=== PATIENT | female | born 2005 | race Caucasian/White ===

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

== ENCOUNTER 2024-10-10 15:12 | Outpatient (CLI) | payer MEDICAID, SELFPAY ==
[2024-10-10 15:21] VITALS: BMI 23.0
[2024-10-10 15:28] VITALS: BP 121/79; PULSE 103
[2024-10-10 15:29] VITALS: RESP 16; TEMP 36.4
[2024-10-10 16:23] LABS: Color, Urine Straw (Yellow); Glucose, Dipstick Normal (Normal); Ketone-Dipstick Negative (Negative); Leukocyte Esterase-Dipstick 500 /ul (Negative); Nitrite-Dipstick Negative (Negative); Occult Blood-Urine 25 /ul (Negative); Protein-Dipstick 100 mg/dl (Negative); Specific Gravity, Urine 1.010 (1.002-1.030); Urine Bilirubin Dipstick Negative (Negative)
--- NOTE | 2024-10-10 17:32 | OB.TRI.HP_ITS ---
HPI - General General Date of Admission: 10/10/24 Date of Service: 10/10/24 Chief Complaint: ctxs HPI Narrative JIMMY LEMA, is a 19 F who presents 2 para 1 with history of 41-week vaginal delivery with her last presents at 32 weeks gestation complaining of contractions. She works on her feet a lot and started having some contractions approximately 3 days ago that have continued they got a little worse today so she decided to come into labor and delivery and be evaluated. She denies any dysuria, nausea vomiting diarrhea or constipation, fevers or chills Maternal Data Information Final JEFFERY: 12/05/24 Gestational age: 32 0/7 PFSH [facility] Medical History (Updated 10/10/24 @ 17:[address] Gemma Reaves MD) Physical exam, pre-employment Anemia Seizures Allergy/AdvReac Type Severity Reaction Status Date / Time No Known Allergies Allergy Verified 10/10/24 15:30 Social History Smoking Status: Never smoker History Elective abortions Hx Para 0 Spontaneous abortions Hx # Term Pregnancies Ectopic pregnancies Hx # Pregnancies Multiple births # of living children NST FHR Rate Baby A Baseline: 130 Variability:: Moderate Accelerations:: 15 x 15 Decelerations:: None NST Reactive:: Yes Uterine Activity:: q2-4 min Assessment & Plan (1) 32 weeks gestation of : (2) : (3) Threatened labor, antepartum: PLAN: No evidence of active labor. Patient feels better after rest and p.o. hyd ration. Will send urine for culture. Encourage patient to return if contractions become more severe or rupture of membranes otherwise follow-up in the office as scheduled. She is comfortable with this plan.
[2024-10-10 20:51] LABS: Fetal Fibronectin Negative; Record Kit Lot#, fFN J4938
== END 2024-10-10 17:05 | disposition home or self-care (01) ==
LOC: WPOUT 15:19 → WP 15:19
PROVIDERS: Referring Provider Obstetrics & Gynecology; Visit Provider Obstetrics & Gynecology
DX: O47.03 False labor before 37 completed weeks of gestation, third trimester (principal); Z3A.32 32 weeks gestation of pregnancy
CPT/HCPCS: 59025; 59050; 81002; 82731; 87077; 87086; 87088; 87186; 99221; G0378

== ENCOUNTER 2024-10-14 00:48 | Outpatient (CLI) | payer MEDICAID, SELFPAY ==
--- OUTSIDE RECORDS SUMMARY | 2024-10-14 00:58 | XMS RPT_ITS | CCD ---
Author Organization [facility] Care Team Providers Care Fitness Director Name Role Phone Diana Velazquez PA-C Primary Care Provider Care Physician, No Primary Primary Care Unava ilable Care Physician, No Primary Referring Unava ilable Geovanna Traylor NP Attending Unavailable Care Physician, No Primary Primary Care Unava ilable Care Physician, No Primary Referring Unava ilable Carlyle Henry Attending Unavailable Care Physician, No Primary Primary Care Unava ilable Marium Stevenson Admitting Unavailable Marium Stevenson Attending Unavailable Diana Velazquez PA-C Primary Care Provider Unavailable Primary Care Provider UnavailGINA Malin Attending Unavailable VELAZQUEZ, DIANA Primary Care Unavailable YONIS, GINA Referring Unavailable VELAZQUEZ, DIANA Primary Care Unavailable GINA KULKARNI Referring Unavailable VELAZQUEZ, DIANA Primary Care Unavailable PAULINA CHADWICK Attending Unavailable CABRERATS, GINA Referring Unavailable VELAZQUEZ, DIANA Primary Care Unavailable CABRERATSGINA Attending Unavailable VELAZQUEZ, DIANA Primary Care Unavailable CRISTA VASQUEZ Attending Unavailable YONIS, GINA Attending Unavailable POOLSIOMARA Referring Unavailable VELAZQUEZ, DIANA Primary Care Unavailable VELAZQUEZ, DIANA Attending Unavailable VELAZQUEZ, DIANA Primary Care Unavailable VELAZQUEZ, DIANA Referring Unavailable VELAZQUEZ, DIANA Primary Care Unavailable Care Physician, No Primary Primary Care Provider Unavailable Jean Paul WHEATLEY, Dr. Menendez Attending Provider Dr. Gemma Reaves MD Referring Provider [phone] Medications Current Medications Medication Drug Class(es) Dates Sig (Normalized) Sig (Original) amoxicillin 500 mg oral capsule (1 source) Penicillin-class Antibacterial Start: 11-26-2022 End: 12-01-2022 take 1 capsule by mouth three times daily amoxicillin (AMOXIL) 500 mg capsule Take 1 capsule by mouth three times daily for 5 days. 15 capsule 0 11/26/2022 12/01/2022 Active Comment on above: Take 1 capsule by mo [facility] three times daily for 5 days. aspirin 81 mg delayed release oral tablet (11 sources) Platelet Aggregation Inhibitor, Nonsteroidal Anti-inflammatory Drug Start: 06-28-2024 take 1 tablet by mouth once daily Ethinyl Estradiol / norgestimate (5 sources) Progestin, Estrogen Start: 10-27-2021 End: 01-19-2022 take 1 tablet by mouth once daily norgestimate 0.25 mg-ethinyl estradiol 35 mcg (SPRINTEC) 0.25-35 mg-mcg per tablet Take 1 tablet by mouth once daily. 84 tablet 3 10/27/2021 01/19/2022 Active Start: 10-24-2021 End: 10-27-2021 take 1 tablet by mouth once daily norgestimate 0.25 mg-ethinyl estradiol 35 mcg (SPRINTEC) 0.25-35 mg-mcg per tablet Take 1 tablet by mouth once daily. 28 tablet 0 10/24/2021 10/27/2021 Discontinued Start: 10-24-2021 take 1 tablet by willie th once daily norgestimate 0.25 mg-ethinyl estradiol 35 mcg (SPRINTEC) 0.25-35 mg-mcg per tablet Take 1 tablet by mouth once daily. 28 tablet 0 10/24/2021 Active Start: 07-01-2021 End: 10-24-2021 take 1 tablet by mouth once daily norgestimate 0.25 mg-ethinyl estradiol 35 mcg (SPRINTEC) 0.25-35 mg-mcg per tablet Take 1 tablet by mouth once daily. 28 tablet 3 07/01/2021 10/24/2021 Discontinued Start: 07-01-2021 take 1 tablet by willie th once daily norgestimate 0.25 mg-ethinyl estradiol 35 mcg (SPRINTEC) 0.25-35 mg-mcg per tablet Take 1 tablet by mouth once daily. 28 tablet 3 07/01/2021 Active Comment on above: Take 1 tablet by willie th once daily. nitrofurantoin, macrocrystals 25 mg / nitrofurantoin, monohydrate 75 mg oral capsule (1 source) Nitrofuran Antibacterial Start: 03-16-19 End: 03-23-19 take 1 capsule by mouth twice daily nitrofurantoin monohydrate and macrocrystal (MACROBID) 100 mg capsule Take 1 capsule by mouth two times a day for 7 days. 14 capsule 03/16/2024 03/23/2024 Active PNV no.95/ferrous fum/folic ac ( ORAL) (20 sources) PNV no.95/ferrou s fum/folic ac ( ORAL) Take by mouth. Active PNV no.95/ferrou s fum/folic ac ( ORAL) Take by mouth. 0 Active Completed/Discontinued Medications Medication Drug Class(es) Dates Sig (Normalized) Sig (Original) acetaminophen 500 mg oral tablet (16 sources) Start: 06-18-2023 End: 07-12-2024 take 2 tablets by mouth every six hours as needed for pain PAIN RELIEF ES, ACETAMINOPHEN, 500 mg tablet TAKE 2 TABLETS BY MOUTH EVERY 6 HOURS NEEDED FOR PAIN OR FEVER 06/18/2023 07/12/2024 Discontinued Start: 06-18-2023 End: 10-10-2024 take 1-10 tablets by mouth every six hours as needed for pain Acetaminophen 500 mg Tablet Discontinued 1000 mg PO EVERY 6 HOURS NEEDED as needed for Pain 1-10 Or Fever 30 June 18, 2023 12:00am October 10, 2024 3:30pm Start: 06-18-2023 take 1000 mg by mout h every six hours as needed Acetaminophen Active 1000 MG PO EVERY 6 HOURS NEEDED June 18, 2023 12:00am Blood-Glucose Meter (1 source) Start: 04-13-2023 End: 04-13-2023 Blood-Glucose Meter Indications: Abnormal glucose in , antepartum Use as directed to check glucose levels up to seven times daily. 1 Each 0 04/13/2023 04/13/2023 Comment on above: Use as directed to c heck glucose levels up to seven times daily. Desogestrel / Ethinyl Estradiol (1 source) Progestin, Estrogen Start: 05-06-2021 End: 07-01-2021 take 1 tablet by mouth once daily, then take 0.15 tablet by mouth once Desogestrel-Ethinyl Estradiol (APRI) 0.15-0.03 mg per tablet Take 1 tablet by mouth once daily. 28 tablet 3 05/06/2021 07/01/2021 Discontinued (Side Effects) Comment on above: Take 1 tablet by willie th once daily. ferrous sulfate 325 mg oral tablet (20 sources) Start: 03-16-2023 End: 06-28-2024 take 1 tablet by mouth once daily ferrous sulfate 325 mg (65 mg iron) tablet Indications: Antepartum anemia (HCC) Take 1 tablet by mouth once daily. 30 tablet 4 03/16/2023 06/28/2024 Discontinued (Discontinued by Patient) Comment on above: Take 1 tablet by willie th once daily. ibuprofen 600 mg oral tablet (14 sources) Nonsteroidal Anti-inflammatory Drug Start: 06-18-2023 End: 10-10-2024 take 1 tablet by mouth every six hours as needed for pain Ibuprofen 600 mg Tablet Discontinued 600 mg PO EVERY 6 HOURS NEEDED as needed for Pain Score 1-10 30 0 June 18, 2023 12:00am October 10, 2024 3:30pm isopropyl alcohol 0.7 ml/ml medicated pad (12 sources) Start: 04-13-2023 End: 07-29-2023 alcohol swabs (ALCOHOL PREP PADS) Indications: Abnormal glucose in , antepartum Use as directed to check glucose levels up to seven times daily. 200 Each 8 04/13/2023 07/29/2023 Discontinued (Other) Comment on above: Use as directed to c heck glucose levels up to seven times daily. multivitamin-ferrous sulfate 18 mg iron tab (20 sources) Start: 05-02-2021 End: 07-29-2023 take 1 tablet by mouth once daily multivitamin-ferrou s sulfate 18 mg iron tab Take 1 tablet by mouth once daily. 90 tablet 0 05/02/2021 07/29/2023 Discontinued (Other) Start: 05-02-2021 take 1 tablet by willie th once daily multivitamin-ferrous sulfate 18 mg iron tab Take 1 tablet by mouth once daily. 90 tablet 0 05/02/2021 Active Comment on above: Take 1 tablet by willie th once daily. norethindrone 0.35 mg oral tablet (12 sources) Start: 07-29-2023 End: 06-28-2024 take 1 tablet by mouth once daily Norethindrone, Contraceptive, 0.35 mg tablet Take 1 tablet by mouth once daily. 84 tablet 3 07/29/2023 06/28/2024 Discontinued (Discontinued by Patient) Problems Active Problems Problem Classification Problem Date Documented Da te Episodic/Chronic Administrative/social admission (2 sources) Encounter for pre-employment examination; Translations: [Patient encounter status] Onset: 12-01-2023 12-01-2023 Episodic Contraceptive and procreative management (2 sources) Oral contraception; Translations: [Encounter for surveillance of contraceptive pills] Episodic Genitourinary symptoms and ill-defined conditions (20 sources) Bacteriuria; Translations: [Bacteriuria] Onset: 11-26-2022 Resolved: 06-28-2024 11-26-2022 Episodic Other complications of ; puerperium affecting management of mother (1 source) Other disorders of ; Translations: [Other disorders of ] Onset: 09-14-2023 Episodic Other complications of (2 sources) Anemia of ; Translations: [Anemia complicating , unspecified trimester] 06-16-2023 Chronic Other complications of (1 source) Anemia complicating , unspecified trimester; Translations: [Anemia of mother, unspecified as to episode of care or not applicable] 06-18-2023 Chronic Other complications of (20 sources) High risk ; Translations: [Supervision of high risk , unspecified, second trimester] Onset: 06-28-2024 01-21-2023 Episodic Other complications of (1 source) Supervision of other high risk pregnancies, unspecified trimester; Translations: [Supervision of other high-risk ] 06-18-2023 Episodic Other complications of (2 sources) Gestational age unknown 06-28-2024 Episodic Other complications of (1 source) care status; Translations: [Supervision of with insufficient care, third trimester] 10-05-2024 Episodic Other complications of (1 source) Supervision of high risk , unspecified, third trimester; Translations: [Supervision of high risk in third trimester (HCC)] Onset: 10-05-2024 Episodic Other complications of (1 source) Supervision of with insufficient care, third trimester; Translations: [Limited care in third trimester (HCC)] Onset: 10-05-2024 Episodic Other complications of (1 source) Supervision of high risk , unspecified, second trimester; Translations: [Encounter for supervision of high risk in second trimester, antepartum (HCC)] Onset: 07-12-2024 Episodic Other congenital anomalies (4 sources) Disorder of bone; 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, 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 Chronic Other congenital anomalies (1 source) Transitional vertebra; 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, not associated with scoliosis] 04-07-2024 Chronic Other congenital anomalies (1 source) Congenital malformation of musculoskeletal system, unspecified; 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] Onset: 04-05-2024 Chronic Other connective tissue disease (1 source) Soft tissue lesion; Translations: [Other specified soft tissue disorders] 04-14-2024 Episodic Other connective tissue disease (1 source) Pain in upper limb; Translations: [Pain in arm, unspecified] 06-18-2023 Episodic Other gastrointestinal disorders (1 source) Constipation; Translations: [Constipation, unspecified] 07-29-2023 Episodic Other gastrointestinal disorders (1 source) Diarrhea; Translations: [Diarrhea, unspecified] 09-17-2024 Episodic Other gastrointestinal disorders (1 source) Diarrhea, unspecified; Translations: [Diarrhea, unspecified type] Onset: 09-17-2024 Episodic Other nutritional; endocrine; and metabolic disorders (2 sources) History of clinical finding in subject; Translations: [Personal history of other endocrine, nutritional and metabolic disease] 06-16-2023 Episodic Comment on above: 1 hour GCT elevated and patient was unable to complete 3 hour GTT Other nutritional; endocrine; and metabolic disorders (1 source) Personal history of other endocrine, nutritional and metabolic disease; Translations: [Personal history of other endocrine, metabolic, and immunity disorders] 06-18-2023 Episodic Other and delivery including normal (20 sources) Teenage ; Translations: [Encounter for supervision of normal first , first trimester] Onset: 11-24-2022 11-24-2022 Episodic Other screening for suspected conditions (not mental disorders or infectious disease) (9 sources) ultrasound increased nuchal translucency; Translations: [Encounter for screening for nuchal translucency] Onset: 07-12-2024 12-08-2022 Episodic Residual codes; unclassified (1 source) Gestation period, 15 weeks; Translations: [15 weeks gestation of ] 12-22-2022 Episodic Residual codes; unclassified (4 sources) Gestation period, 19 weeks; Translations: [19 weeks gestation of ] 01-20-2023 Episodic Residual codes; unclassified (3 sources) Gestation period, 23 weeks; Translations: [23 weeks gestation of ] 02-16-2023 Episodic Residual codes; unclassified (1 source) Gestation period, 32 weeks; Translations: [32 weeks gestation of ] 04-20-2023 Episodic Residual codes; unclassified (1 source) Gestation period, 34 weeks; Translations: [34 weeks gestation of ] 05-04-2023 Episodic Residual codes; unclassified (1 source) Gestation period, 36 weeks; Translations: [36 weeks gestation of ] 05-18-2023 Episodic Residual codes; unclassified (1 source) Gestation period, 37 weeks; Translations: [37 weeks gestation of ] 05-25-2023 Episodic Residual codes; unclassified (1 source) Gestation period, 38 weeks; Translations: [38 weeks gestation of ] 06-01-2023 Episodic Residual codes; unclassified (1 source) Gestation period, 39 weeks; Translations: [39 weeks gestation of ] 06-08-2023 Episodic Residual codes; unclassified (2 sources) Gestation period, 40 weeks; Translations: [40 weeks gestation of ] 06-16-2023 Episodic Residual codes; unclassified (1 source) 40 weeks gestation of ; Translations: [ state, incidental] 06-18-2023 Episodic Residual codes; unclassified (1 source) Gestation period, 17 weeks; Translations: [17 weeks gestation of ] 06-28-2024 Episodic Residual codes; unclassified (2 sources) Gestation period, 31 weeks; Translations: [31 weeks gestation of ] 10-05-2024 Episodic Residual codes; unclassified (1 source) 31 weeks gestation of ; Translations: [31 weeks gestation of (HCC)] Onset: 10-05-2024 Episodic Residual codes; unclassified (1 source) 23 weeks gestation of ; Translations: [23 weeks gestation of (HCC)] Onset: 08-11-2024 Episodic Residual codes; unclassified (1 source) 19 weeks gestation of ; Translations: [19 weeks gestation of (HCC)] Onset: 07-12-2024 Episodic Spondylosis; intervertebral disc disorders; other back problems (1 source) Sacrococcygeal disorders, not elsewhere classified; Translations: [Disorders of sacrum] 07-29-2023 Episodic Unclassified (11 sources) [facility] Education - COMMON Onset: 06-28-2024 06-28-2024 Unclassified (11 sources) Education - [place] Onset: 06-28-2024 06-28-2024 Past or Other Problems Problem Classification Problem Date Documented Da te Episodic/Chronic Alcohol-related disorders (13 sources) Alcohol consumption during ; Translations: [Alcohol use complicating , first trimester] Onset: 06-28-2024 06-28-2024 Episodic Diabetes or abnormal glucose tolerance complicating ; childbirth; or the puerperium (20 sources) Impaired glucose tolerance in ; Translations: [Abnormal glucose complicating ] Onset: 04-06-2023 Resolved: 06-28-2024 04-12-2023 Episodic Other complications of (20 sources) Anemia in mother complicating , childbirth AND/OR puerperium; Translations: [Anemia complicating , third trimester] Onset: 03-16-2023 Resolved: 06-28-2024 04-06-2023 Chronic Other complications of (15 sources) Late entry into care; Translations: [Supervision of with insufficient care, unspecified trimester] Onset: 06-28-2024 06-28-2024 Episodic Other complications of (12 sources) Rubella non-immune; Translations: [Supervision of other high risk pregnancies, unspecified trimester] Onset: 07-03-2024 07-03-2024 Episodic Other complications of (1 source) Supervision of other high risk pregnancies, second trimester; Translations: [Short interval between pregnancies affecting in second trimester, antepartum (HCC)] Onset: 06-28-2024 Episodic Other complications of (1 source) Supervision of with insufficient care, unspecified trimester; Translations: [Late care ([facility])] Onset: 06-28-2024 Episodic Residual codes; unclassified (1 source) 17 weeks gestation of ; Translations: [17 weeks gestation of ([facility])] Onset: 06-28-2024 Episodic Results Test Name Value Interpretation Reference Range Facility Bilirubin Test strip Ql (U)O rdered By: Gemma Reaves on 10-10-2024 Bilirubin Ql (U) Negative Negative [facility] Ketones Test strip Ql (U)Ord ered By: Gemma Reaves on 10-10-2024 Ketones Ql (U) Negative Negative [facility] Nitrite Test strip Ql (U)Ord ered By: Gemma Reaves on 10-10-2024 Nitrite Ql (U) Negative Negative [facility] Protein Test strip Ql (U)Ord ered By: Gemma Reaves on 10-10-2024 Protein Ql (U) 100 mg/dl High Negative [facility] Urine clarityOrdered By: Ximena Reaves on 10-10-2024 Clarity (U) Cloudy Clear [facility] Urine color determinationOrd ered By: Gemma Reaves on 10-10-2024 Color (U) Straw Yellow [facility] Urine glucose detectionOrder ed By: Gemma Reaves on 10-10-2024 Glucose Ql (U) Normal mg/dl Normal [facility] Urine leukocyte esterase det ection by dipstickOrdered By: Gemma Reaves on 10-10-2024 Leukocyte esterase Test strip Ql (U) 500 /ul High Negative [facility] Urine pHOrdered By: Gemma Reaves on 10-10-2024 pH (U) 6.5 [pH] 5.0 - 8.0 [facility] Urine specific gravity measu rementOrdered By: Gemma Reaves on 10-10-2024 Specific gravity (U) [Rel density] 1.010 1.002-1.030 [facility] Urine urobilinogen measureme ntOrdered By: Gemma Reaves on 10-10-2024 Urobilinogen Ql (U) Normal mg/dl Normal [facility] CNPNon 10-06-2024 CNPN Telephone (OGFVWE) JIMMY LEMA ([id number]) 3 F Date Time Provider Department 10/06/24 NURSE TV TECHNICIAN [facility] During your visit today, we recorded the following information about you: Alf Trevino, RN 10/06/2024 12:23 PM Signed 3rd risk assessment form submitted 10/06/24 Alf Trevino RN Allergies As of Date: 10/06/2024 (No Known Allergies) Date Reviewed: 09/17/2024 Reviewed by: Cirsta Vasquez APRN.MARKETING DEVELOPMENT SPECIALIST - Fully Assessed Reason for Visit: PRAF [4193] Prescriptions as of 10/06/2024 - aspirin, enteric coated (ECOTRIN LOW STRENGTH) 81 mg EC tablet Take 1 tablet by mouth once daily. - PNV no.95/ferrous fum/folic ac ( ORAL) Take by mouth. Problem List As Of Date 10/06/2024 Noted Resolved GBS bacteriuria [R82.71] 11/26/2022 06/28/2024 Anemia complicating , third trimester *03/16/2023 06/28/2024 Abnormal glucose tolerance in (HCC) [*04/06/2023 06/28/2024 Short interval between pregnancies affecting pr*06/28/2024 Late care (HCC) [O09.30] 06/28/2024 Alcohol consumption during in first t*06/28/2024 Rubella non-immune status, antepartum (HCC) [O0*07/03/2024 Supervision of high risk in third tri*10/05/2024 Encounter Status:Closed by ALF TREVINO on 10/06/24 Normal [facility] URINE OB DIP B/Oon Glucose Ql (U) Negative Neg mg/dL [facility] Interpretation and review of laboratory results Normal [facility] Protein.monoclonal (U) [Mass/Vol] Negative Neg mg/dL [facility] CNOVon 09-17-2024 CNOV Office Visit (WOUCA) JIMMY LEMA ([id number]) 3 F Date Time Provider Department 09/17/24 8:30 AM CRISTA VASQUEZ During your visit today, we recorded the following information about you: Temperature Pulse Respiration Blood pressure 96.9 degrees 94/minute 18/minute 112/62 Weight 56.6 kg Crista Vasquez APRN.MARKETING DEVELOPMENT SPECIALIST 09/17/2024 8:54 AM Signed This note was created using [employer]. Subjective Jimmy Lema is a 19 year old female. HPI Patient presents today complaining of about 1 week of diarrhea. She is also 28 weeks . She states that she has had 4 episodes of diarrhea today but typically it is much less than that. She denies any recent exposures such as camping. Denies any abdominal pain other than some mild cramping with diarrhea. Denies any vaginal bleeding or discharge. Denies any recent fever. States she is still urinating greater than 4 times per day. Review of Systems As above Objective BP 112/62 Pulse 94 Temp 36.1 ?C (96.9 ?F) Resp 18 Wt 56.6 kg (124 lb 12.5 oz) LMP 02/29/2024 (Approximate) SpO2 98% BMI 22.10 kg/m? Physical Exam Vitals and nursing note reviewed. Constitutional: General: She is not in acute distress. Appearance: Normal appearance. She is not ill-appearing. HENT: Head: Normocephalic. Mouth/Throat: Mouth: Mucous membranes are moist. Eyes: Conjunctiva/sclera: Conjunctivae normal. Cardiovascular: Rate and Rhythm: Normal rate and regular rhythm. Pulmonary: Effort: Pulmonary effort is normal. Breath sounds: Normal breath sounds. Abdominal: Palpations: Abdomen is soft. Tenderness: There is no abdominal tenderness. Musculoskeletal: General: Normal range of motion. Cervical back: Normal range of motion. Skin: General: Skin is warm and dry. Neurological: General: No focal deficit present. Mental Status: She is alert. Psychiatric: Mood and Affect: Mood normal. Behavior: Behavior normal. Assessment and Plan ASSESSMENT/PLAN: 1. Diarrhea, unspecified type - ICD9: 787.91, ICD10: R19.7 Discussed with patient that symptoms are most likely viral in origin. She does deny any concerning exposures such as camping. We did discuss stool testing which she prefers to defer if symptoms have not improved. Strongly encouraged her to get plenty of fluids including high electrolyte fluids such as Gatorade. If symptoms have not improved within the week she will return for reevaluation. Crista Vasquez APRN.[place] Allergies As of Date: 09/17/2024 (No Known Allergies) Date Reviewed: 09/17/2024 Reviewed by: Crista Vasquez APRN.MARKETING DEVELOPMENT SPECIALIST - Fully Assessed Reason for Visit: Diarrhea [35] Cmt: x 1 week Primary Visit Diagnosis:Diarrhea, unspecified type [R19.7] Prescriptions as of 09/17/2024 - aspirin, enteric coated (ECOTRIN LOW STRENGTH) 81 mg EC tablet Take 1 tablet by mouth once daily. - PNV no.95/ferrous fum/folic ac ( ORAL) Take by mouth. Problem List As Of Date 09/17/2024 Noted Resolved GBS bacteriuria [R82.71] 11/26/2022 06/28/2024 Anemia complicating , third trimester *03/16/2023 06/28/2024 Abnormal glucose tolerance in (HCC) [*04/06/2023 06/28/2024 Short interval between pregnancies affecting pr*06/28/2024 Late care (HCC) [O09.30] 06/28/2024 Encounter for supervision of high risk pregnanc*06/28/2024 Alcohol consumption during in first t*06/28/2024 Rubella non-immune status, antepartum (HCC) [O0*07/03/2024 Encounter Status:Closed by CRISTA [facility] ([facility] JIMMY LEMA ([id number]) 3 F Date Time Provider Department 08/14/24 NURSE TV TECHNICIAN [facility] [place] [facility]GFVWE During your visit today, we recorded the following information about you: Alf Trevino, RN 08/14/2024 10:42 AM Signed 2nd risk assessment form submitted 08/14/24 Alf Trevino RN Allergies As of Date: 08/14/2024 (No Known Allergies) Date Reviewed: 08/11/2024 Reviewed by: Brandon Gilman MA - Fully Assessed Reason for Visit: PRAF [4193] Prescriptions as of 08/14/2024 - aspirin, enteric coated (ECOTRIN LOW STRENGTH) 81 mg EC tablet Take 1 tablet by mouth once daily. - PNV no.95/ferrous fum/folic ac ( ORAL) Take by mouth. Problem List As Of Date 08/14/2024 Noted Resolved GBS bacteriuria [R82.71] 11/26/2022 06/28/2024 Anemia complicating , third trimester *03/16/2023 06/28/2024 Abnormal glucose tolerance in (HCC) [*04/06/2023 06/28/2024 Short interval between pregnancies affecting pr*06/28/2024 Late care (HCC) [O09.30] 06/28/2024 Encounter for supervision of high risk pregnanc*06/28/2024 Alcohol consumption during in first t*06/28/2024 Rubella non-immune status, antepartum (HCC) [O0*07/03/2024 Encounter Status:Closed by ALF TREVINO on 08/14/24 Normal [facility] Examination level ultrasound on 07-12-2024 Indication Standard anatomic survey Late care Impression The patient is referred for a standard anatomic survey. - Single, live, intrauterine . - biometry is consistent with the established gestational age. - No malformations were visualized on a complete standard anatomic survey. - The amniotic fluid volume is normal amount. - The placenta is posterior, fundal. - The Transabdominal cervical length measures 42 mm with no evidence of funneling or other dynamic changes. - Not all structural malformations can be detected by ultrasound examination. Recommendations Additional follow-up as clinically indicated. Maternal Assessment Height 160 cm Height (ft) 5 ft Height (in) 3 in Maternal assessment other: 2 Para 1 REMOTE READ Method Transabdominal ultrasound examination. View: Adequate visualization Garza . Number of fetuses: 1 Dating GA by prior assessment 19 w + 1 d JEFFERY by prior assessment: 12/05/2024 Ultrasound examination on: 07/12/2024 GA by U/S based upon: AC, BPD, Femur, HC GA by U/S 19 w + 2 d JEFFERY by U/S: 12/04/2024 Assigned: based on stated JEFFERY, selected on 07/12/2024 Assigned GA 19 w + 1 d Assigned JEFFERY: 12/05/2024 General Evaluation Cardiac activity present. FHR 138 bpm. movements: present. Presentation: transverse head right Placenta: Placental site: posterior, fundal Umbilical cord: Cord vessels: 3 vessel cord Amniotic fluid: Amount of AF: normal amount. MVP 5.0 cm Growth Overview Exam date GA BPD (mm) HC (mm) AC (mm) FL (mm) HL (mm) EFW (g) 06/28/2024 17w 2d 35.4 31% 139.3 44% 126.4 79% 22.5 35% 07/12/2024 19w 1d 39.9 12% 162.2 43% 150.8 82% 30.7 77% 30.5 82% 312 80% Biometry Standard BPD 39.9 mm 18w 1d 12% Hadlock OFD 60.3 mm 19w 4d 89% Nicolaides HC 162.2 mm 19w 0d 43% Cristina Cerebellum tr 20.0 mm 19w 2d 50% Hill Nuchal fold 3.4 mm AC 150.8 mm 20w 2d 82% Hadlock Femur 30.7 mm 19w 5d 77% Cristina Humerus 30.5 mm 20w 0d 82% Cristina EFW 312 g 19w 5d 80% Hadlock EFW (lb) 0 lb EFW (oz) 11 oz EFW by: Hadlock (HC-AC-FL) Extended Configuration Specialist 6.7 mm CM 4.5 mm 40% Nicolaides Extremities / Bony Struc FL / HC 0.19 81% Hadlock Other Structures FHR 138 bpm Anatomy Cranium: normal Lateral ventricles: normal Choroid plexus: normal Midline falx: normal Cavum septi pellucidi: normal Cerebellum: normal Cisterna magna: normal Head / Neck Vermis: Normal but not required for a standard anatomy exam Neck: Normal but not required for a standard anatomy exam Nuchal fold: Normal but not required for a standard anatomy exam Lips: normal Profile: Normal but not required for a standard anatomy exam Nose: Normal but not required for a standard anatomy exam Face Maxilla: Normal but not required for a standard anatomy exam Mandible: Normal but not required for a standard anatomy exam Orbits: Normal but not required for a standard anatomy exam Lens: Normal but not required for a standard anatomy exam 4-chamber view: normal RVOT view: normal LVOT view: normal 3-vessel view: normal 3-kekisp-suqugao view: normal Heart / Thorax Situs: situs solitus (normal) Aortic arch view: Normal but not required for a standard anatomy exam SVC: Normal but not required for a standard anatomy exam IVC: Normal but not required for a standard anatomy exam Cardiac axis: normal Rt lung: Normal but not required for a standard anatomy exam Lt lung: Normal but not required for a standard anatomy exam Diaphragm: Normal but not required for a standard anatomy exam Cord insertion: normal Stomach: normal Kidneys: normal Bladder: normal Genitals: normal Abdomen Abdom. wall: normal Cervical spine: normal Thoracic spine: normal Lumbar spine: normal Sacral spine: normal Arms: normal Legs: normal Rt upper arm: normal Rt forearm: normal Rt hand: normal Rt fingers: normal Lt upper arm: normal Lt forearm: normal Lt hand: normal Lt fingers: normal Rt upper leg: normal Rt lower leg: normal Rt foot: normal Lt upper leg: normal Lt lower leg: normal Lt foot: normal sex: male Wants to know sex: yes Maternal Structures Uterus / Cervix Uterus: Visualized Cervix: Visualized Approach: Transabdominal Cervical length 42.0 mm Other: Patient declined transvaginal ultrasound for cervical length. Ovaries / Tubes / Adnexa Rt ovary: Visualized Lt ovary: Visualized Performed By: Darline Simmons RDMS, RVT Read By: Brielle Norman M.D. MATERNAL MEDICINE [facility] Radiology Study observation (narrative) Anna mooney [facility] Lo 06-29-2024 [facility] Telephone (OGFVWE) JIMMY LEMA ([id number]) 3 F Date Time Provider Department 06/29/24 NURSE TV TECHNICIAN [facility] During your visit today, we recorded the following information about you: Alf Trevino, RN 06/29/2024 9:13 AM Signed 1st risk assessment form submitted 06/29/24 Alf Trevino RN Allergies As of Date: 06/29/2024 (No Known Allergies) Date Reviewed: 06/26/2024 Reviewed by: Rosi Pascual MA - Fully Assessed Reason for Visit: PRAF [4193] Prescriptions as of 06/29/2024 - aspirin, enteric coated (ECOTRIN LOW STRENGTH) 81 mg EC tablet Take 1 tablet by mouth once daily. - PAIN RELIEF ES, ACETAMINOPHEN, 500 mg tablet TAKE 2 TABLETS BY MOUTH EVERY 6 HOURS NEEDED FOR PAIN OR FEVER - PNV no.95/ferrous fum/folic ac ( ORAL) Take by mouth. Problem List As Of Date 06/29/2024 Noted Resolved GBS bacteriuria [R82.71] 11/26/2022 06/28/2024 Anemia complicating , third trimester *03/16/2023 06/28/2024 Abnormal glucose tolerance in (HCC) [*04/06/2023 06/28/2024 Short interval between pregnancies affecting pr*06/28/2024 Late care (HCC) [O09.30] 06/28/2024 Encounter for supervision of high risk pregnanc*06/28/2024 Alcohol consumption during in first t*06/28/2024 Encounter Status:Closed by ALF TREVINO on 06/29/24 Normal [facility] BACTERIAL VAGINOSIS NAATon 0 06-28-2024 Interpretation and review of laboratory results Normal [facility] Lactobacillus crispatus+gasseri+stein ii + Gardnerella vaginalis + Atopobium vaginae rRNA BAMBI+probe Ql (Vag fld) Not detected Not detected [facility] Lactobacillus crispatus+gasseri+stein ii + Gardnerella vaginalis + Atopobium vaginae rRNA BAMBI+probe Ql (Vag fld) Not detected Normal Not detected [facility] Comment on above: Order Comment: Speci men Type: SWABOrdering Facility: [facility] Address: [address] [place] [address] Performed By: #### C VTV, BVAMP ####[facility] LABCLIA [id number] [place] [address] [place] Bacteria Ur Culton Bacteria identified Cx Nom (U) ORGANISM ID: 1 >=100,000 CFU/ml Normal urogenital twyla Normal [facility] Comment on above: Performed By: #### 6 30-4 ####[facility] LABCLIA [id number] [place] [address] [place] C. trachomatis+N. gonorrhoea e DNA BAMBI+probe Ql (Unsp spec)on 06-28-2024 C. trachomatis rRNA BAMBI+probe Ql (Unsp spec) Not detected Not detected [facility] Interpretation and review of laboratory results Normal [facility] N. gonorrhoeae rRNA BAMBI+probe Ql (Unsp spec) Not detected Not detected [facility] This FDA-approved assay has been modified to accept rectal swabs self-collected in a healthcare setting. For self-collected rectal swabs, the test was developed and its performance characteristics determined by the [facility]'s [facility] [place] (-PLMI). It has not been cleared or approved by the FDA. [facility] is regulated under CLIA as qualified to perform high-complexity testing. This test is used for clinical purposes. It should not be regarded as investigational or for research. [facility] C. trachomatis rRNA BAMBI+probe Ql (Unsp spec) Not detected Normal Not detected [facility] Comment on above: Order Comment: Speci men Type: SWABOrdering Facility: [facility] Address: [address] [place] [address] Performed By: #### 3 6902-5 ####[facility] LABCLIA [id number] [place] [address] [place] N. gonorrhoeae rRNA BAMBI+probe Ql (Unsp spec) Not detected Normal Not detected [facility] Comment on above: Order Comment: Speci men Type: SWABOrdering Facility: [facility] Address: [address] [place] [address] Performed By: #### 3 6902-5 ####[facility] LABCLIA [id number] [place] [address] [place] SCARLET/TRICHOMONAS NAATon 0 06-28-2024 C. glabrata RNA BAMBI+probe Ql (Vag fld) Not detected Not detected [facility] Scarlet sp DNA BAMBI+probe Ql (Vag fld) Not detected Not detected [facility] Comment on above: The Scarlet species group target includes C. albicans, C. tropicalis, C. parapsilosis, and C. dubliniensis. Interpretation and review of laboratory results Normal [facility] T. vaginalis DNA BAMBI+probe Ql (Unsp spec) Not detected Not detected [facility] C. glabrata RNA BAMBI+probe Ql (Vag fld) Not detected Normal Not detected [facility] Comment on above: Order Comment: Speci men Type: SWABOrdering Facility: [facility] Address: [address] [place] [address] Performed By: #### C VTV, BVAMP ####[facility] LABIA [id number] [address] [place] Scarlet sp DNA BAMBI+probe Ql (Vag fld) Not detected Normal Not detected [facility] Comment on above: Order Comment: Speci men Type: SWABOrdering Facility: [facility] Address: [address] [place] [address] Result Comment: The Scarlet species group target includes C. albicans, C. tropicalis, C. parapsilosis, and C. dubliniensis. Performed By: #### C VTV, BVAMP ####[facility] LABCLIA [id number] [address] [place] T. vaginalis DNA BAMBI+probe Ql (Unsp spec) Not detected Normal Not detected [facility] Comment on above: Order Comment: Speci men Type: SWABOrdering Facility: [facility] Address: [address] [place] [address] Performed By: #### C VTV, BVAMP ####[facility] LABCLIA [id number] [place] [address] [place] CBC W Auto Differential pane l (Bld)on 06-28-2024 Basophils (Bld) [#/Vol] 0.04 10*3/uL Normal <0.11 [facility] Comment on above: Order Comment: Speci men Type: BLOOD SPECIMENOrdering Facility: [facility] Address: [address] [place] [address] Performed By: #### 5 7021-8 ####[facility] [id number] [place] [address] [place] Basophils/100 WBC (Bld) 0.4 % Normal [facility] Comment on above: Order Comment: Speci men Type: BLOOD SPECIMENOrdering Facility: [facility] Address: [address] [place] [address] Performed By: #### 5 7021-8 ####[facility] [id number] [place] [address] [place] Differential cell count method Nom (Bld) Auto Normal [facility] Comment on above: Order Comment: Speci men Type: BLOOD SPECIMENOrdering Facility: [facility] Address: [address] [place] [address] Performed By: #### 5 7021-8 ####[facility] [id number] [place] [address] [place] Eosinophils (Bld) [#/Vol] 0.07 10*3/uL Normal <0.46 [facility] Comment on above: Order Comment: Speci men Type: BLOOD SPECIMENOrdering Facility: [facility] Address: [address] [place] [address] Performed By: #### 5 7021-8 ####[facility] BOBBYNCENOCH [id number] [place] [address] [place] Eosinophils/100 WBC (Bld) 0.7 % Normal [facility] Comment on above: Order Comment: Speci men Type: BLOOD SPECIMENOrdering Facility: [facility] Address: [address] [place] [address] Performed By: #### 5 7021-8 ####[facility]CLIAnabell [id number] [place] [address] [place] Erythrocyte distribution width (RBC) [Ratio] 13.3 % Normal 11.5-15.0 [facility] Comment on above: Order Comment: Speci men Type: BLOOD SPECIMENOrdering Facility: [facility] Address: [address] [place] [address] Performed By: #### 5 7021-8 ####[facility] [id number] [place] [address] [place] Hematocrit (Bld) [Volume fraction] 35.7 % Low 36.0-46.0 [facility] Comment on above: Order Comment: Speci men Type: BLOOD SPECIMENOrdering Facility: [facility] Address: [address] [place] [address] Performed By: #### 5 7021-8 ####[facility] [id number] [place] [address] [place] Hemoglobin (Bld) [Mass/Vol] 12.5 g/dL Normal 11.5-15.5 [facility] Comment on above: Order Comment: Speci men Type: BLOOD SPECIMENOrdering Facility: [facility] Address: [address] [place] [address] Performed By: #### 5 7021-8 ####[facility] MILLWNCLIA [id number] [place] [address] [place] Immature granulocytes (Bld) [#/Vol] 0.07 10*3/uL Normal <0.10 [facility] Comment on above: Order Comment: Speci men Type: BLOOD SPECIMENOrdering Facility: [facility] Address: [address] [place] [address] Performed By: #### 5 7021-8 ####[facility] [id number] [place] [address] [place] Immature granulocytes/100 WBC (Bld) 0.7 % Normal [facility] Comment on above: Order Comment: Speci men Type: BLOOD SPECIMENOrdering Facility: [facility] Address: [address] [place] [address] Performed By: #### 5 7021-8 ####[facility] HOS[facility]ITALLIA [id number] [place] [address] [place] Lymphocytes (Bld) [#/Vol] 2.24 10*3/uL Normal 1.00-4.00 [facility] Comment on above: Order Comment: Speci men Type: BLOOD SPECIMENOrdering Facility: [facility] Address: [address] [place] [address] Performed By: #### 5 7021-8 ####[facility]ITALWNCLIA [id number] [place] [address] [place] Lymphocytes/100 WBC (Bld) 22.0 % Normal [facility] Comment on above: Order Comment: Speci men Type: BLOOD SPECIMENOrdering Facility: [facility] Address: [address] [place] [address] Performed By: #### 5 7021-8 ####[facility] [id number] [place] [address] [place] MCH (RBC) [Entitic mass] 31.7 pg Normal 26.0-34.0 [facility] Comment on above: Order Comment: Speci men Type: BLOOD SPECIMENOrdering Facility: [facility] Address: [address] [place] [address] Performed By: #### 5 7021-8 ####[facility]LEFELECIA [id number] [place] [address] [place] MCHC (RBC) [Mass/Vol] 35.0 g/dL Normal 30.5-36.0 [facility] Comment on above: Order Comment: Speci men Type: BLOOD SPECIMENOrdering Facility: [facility] Address: [address] [place] [address] Performed By: #### 5 7021-8 ####[facility]LECLOVISAnabell [id number] [address] [place] MCV (RBC) [Entitic vol] 90.6 fL Normal 80.0-100.0 C [facility] Comment on above: Order Comment: Speci men Type: BLOOD SPECIMENOrdering Facility: [facility] Address: [address] [place] [address] Performed By: #### 5 7021-8 ####[facility]LE[facility]LECIA [id number] [place] [address] [place] Monocytes (Bld) [#/Vol] 0.58 10*3/uL Normal <0.87 [facility] Comment on above: Order Comment: Speci men Type: BLOOD SPECIMENOrdering Facility: [facility] Address: [address] [place] [address] Performed By: #### 5 7021-8 ####[facility]CL[facility] [id number] [address] [place] Monocytes/100 WBC (Bld) 5.7 % Normal C [facility] Comment on above: Order Comment: Speci men Type: BLOOD SPECIMENOrdering Facility: [facility] Address: [address] [place] [address] Performed By: #### 5 7021-8 ####[facility] SENGVERPLANCKCLOVISLIA [id number] [place] [address] [place] Neutrophils (Bld) [#/Vol] 7.16 10*3/uL Normal 1.45-7.50 [facility] Comment on above: Order Comment: Speci men Type: BLOOD SPECIMENOrdering Facility: [facility] Address: [address] [place] [address] Performed By: #### 5 7021-8 ####[facility] HOS[facility]ITALLIA [id number] [place] [address] [place] Neutrophils/100 WBC (Bld) 70.5 % Normal [facility] Comment on above: Order Comment: Speci men Type: BLOOD SPECIMENOrdering Facility: [facility] Address: [address] [place] [address] Performed By: #### 5 7021-8 ####[facility] [id number] [place] [address] [place] Nucleated RBC (Bld) [#/Vol] 10*3/uL Normal <0.01 [facility] Comment on above: Order Comment: Speci men Type: BLOOD SPECIMENOrdering Facility: [facility] Address: [address] [place] [address] Performed By: #### 5 7021-8 ####[facility] H[facility]ITALL[facility] [id number] [place] [address] [place] Nucleated RBC/100 WBC (Bld) [Ratio] 0.0 /100 WBC Normal [facility] Comment on above: Order Comment: Speci men Type: BLOOD SPECIMENOrdering Facility: [facility] Address: [address] [place] [address] Performed By: #### 5 7021-8 ####[facility] MILLJELENAWNCLIA [id number] [place] [address] [place] Platelet mean volume (Bld) [Entitic vol] 9.5 fL Normal 9.0-12.7 [facility] Comment on above: Order Comment: Speci men Type: BLOOD SPECIMENOrdering Facility: [facility] Address: [address] [place], [place] [address] Performed By: #### 5 7021-8 ####[facility]PITALCareyNCLIA [id number] [place] [address] [place] Platelets (Bld) [#/Vol] 229 10*3/uL Normal 150-400 [facility] Comment on above: Order Comment: Speci men Type: BLOOD SPECIMENOrdering Facility: [facility] Address: [address] [place], [place] [address] Performed By: #### 5 7021-8 ####[facility] [id number] [place] [address] [place] RBC (Bld) [#/Vol] 3.94 10*6/uL Normal 3.90-5.20 [facility] Comment on above: Order Comment: Speci men Type: BLOOD SPECIMENOrdering Facility: [facility] Address: [address] [place] [address] Performed By: #### 5 7021-8 ####[facility] AMILCARWNCLIA [id number] [place] [address] [place] WBC (Bld) [#/Vol] 10.16 10*3/uL Normal 3.70-11.00 [facility] Comment on above: Order Comment: Speci men Type: BLOOD SPECIMENOrdering Facility: [facility] Address: [address] [place] [address] Performed By: #### 5 7021-8 ####[facility] [id number] [place] [id number] [place] HBV surface Ag Ql (S)on 06-07 Interpretation and review of laboratory results Normal [facility] HBV surface Ag Ser Qlon 06-07 HBV surface Ag Ql (S) Negative Normal Negative [facility] Comment on above: Order Comment: Speci men Type: BLOOD SPECIMENOrdering Facility: [facility] Address: [address] [place] [address] Performed By: #### 7 3752-8, 87053-8, 5195-3 ####[facility] LABIA [id number] [place] [address] [place] HCV Ab Ql (S)on 06-28-2024 Interpretation and review of laboratory results Normal [facility] HCV Ab Ser Qlon 06-28-2024 HCV Ab Ql (S) Negative Normal Negative [facility] Comment on above: Order Comment: Speci men Type: BLOOD SPECIMENOrdering Facility: [facility] Address: [address] [place] [address] Result Comment: The result suggests no evidence of infection with Hepatitis C virus. Should recent infection be suspected, repeat testing may be considered 4-6 weeks after this draw. Performed By: #### 1 6128-1 ####[facility] LABIA [id number] [place] [address] [place] HEPATITIS B SURFACE ANTIGENo n 06-28-2024 HBV surface Ag Ql (S) Negative Negative [facility] HEPATITIS C ANTIBODY IA WITH CONFIRMATIONon 06-28-2024 HCV Ab Ql (S) Negative Negative [facility] Comment on above: The result suggests no evidence of infection with Hepatitis C virus. Should recent infection be suspected, repeat testing may be considered 4-6 weeks after this draw. HIV 1+2 Ab IA Qlon HIV 1 and 2 Ab IA.rapid Nom (S/P/Bld) [facility] Comment on above: Test not indicated. HIV 1+2 Ab+HIV1 p24 Ag IA Ql Non-Reactive Nonreactive [facility] HIV immunoassay testing algorithm interpretation (S/P/Bld) [Interp] [facility] Comment on above: No evidence of HIV-1 or HIV-2 infection. Should recent infection be suspected, repeat testing may be considered 2-3 weeks after this draw. [place] Rev. Code 3701.243(E): This information has been disclosed to you from confidential records protected from disclosure by state law. You shall make no further disclosure of this information without the specific, written, and informed release of the individual to whom it pertains or as otherwise permitted by state law. A general authorization for the release of medical or other information is not sufficient for the purpose of the release of HIV test results or diagnoses. [facility] HIV 1 and 2 Ab IA.rapid Nom (S/P/Bld) Normal [facility] Comment on above: Order Comment: Speci men Type: BLOOD SPECIMENOrdering Facility: [facility] Address: [address] [place] [address] Result Comment: Test not indicated. Performed By: #### 7 3752-8, 27288-4, 5195-3 ####[facility] [id number] [place] [address] [place] HIV 1+2 Ab+HIV1 p24 Ag IA Ql Non-Reactive Normal Nonreactive [facility] Comment on above: Order Comment: Speci men Type: BLOOD SPECIMENOrdering Facility: [facility] Address: [address] [place] [address] Performed By: #### 7 3752-8, 74227-8, 5195-3 ####[facility] [id number] [place] [address] [place] HIV immunoassay testing algorithm interpretation (S/P/Bld) [Interp] Normal [facility] Comment on above: Order Comment: Speci men Type: BLOOD SPECIMENOrdering Facility: [facility] Address: [address] [place] [address] Result Comment: No e vidence of HIV-1 or HIV-2 infection. Should recent infection be suspected, repeat testing may be considered 2-3 weeks after this draw. [place] Rev. Code 3701.243(E): This information has been disclosed to you from confidential records protected from disclosure by state law. ???You shall make no further disclosure of this information without the specific, written, and informed release of the individual to whom it pertains or as otherwise permitted by state law. A general authorization for the release of medical or other information is not sufficient for the purpose of the release of HIV test results or diagnoses. Performed By: #### 7 3752-8, 28345-7, 5195-3 ####[facility] LABIA [id number] [address] OF [facility] HbA1c (Bld)on 06-28-2024 Average glucose Estimated from glycated hemoglobin (Bld) [Mass/Vol] 100 mg/dL [facility] Comment on above: eAG: (Estimated aver age glucose) is a calculated value from HgbA1c and is account services representative of the average blood glucose level in the last 2-3 month period. HbA1c (Bld) [Mass fraction] 5.1 % 4.3 - 5.6 % [facility] Comment on above: [place] Diabetes As sociation guidelines indicate that patients with HgbA1c in the range 5.7-6.4% are at increased risk for development of diabetes, and intervention by lifestyle modification may be beneficial. HgbA1c greater or equal to 6.5% is considered diagnostic of diabetes. [facility] Average glucose Estimated from glycated hemoglobin (Bld) [Mass/Vol] 100 mg/dL Normal [facility] Comment on above: Order Comment: Speci men Type: BLOOD SPECIMENOrdering Facility: [facility] Address: [address] [place] [address] Result Comment: eAG: (Estimated average glucose) is a calculated value from HgbA1c and is account services representative of the average blood glucose level in the last 2-3 month period. Performed By: #### 5 5454-3 ####[facility] [id number] [address] HbA1c (Bld) [Mass fraction] 5.1 % Normal 4.3-5.6 [facility] Comment on above: Order Comment: Speci men Type: BLOOD SPECIMENOrdering Facility: [facility] Address: [address] [place] [address] Result Comment: Amer [place] Diabetes Association guidelines indicate that patients with HgbA1c in the range 5.7-6.4% are at increased risk for development of diabetes, and intervention by lifestyle modification may be beneficial. HgbA1c greater or equal to 6.5% is considered diagnostic of diabetes. Performed By: #### 5 5454-3 ####[facility] LABCLIA [id number] [address] [place] [id number] PLUSon 06-28-2024 Cell-free DNA./Cell-free DNA.total Dosage of chromosome-specific cfDNA (cfDNA) [Molar fraction] 23% Normal [facility] Comment on above: Order Comment: Speci men Type: BLOOD SPECIMENOrdering Facility: [facility] Address: [address] [place] [address] Performed By: #### M AT21 ####[facility] LABCLIA [id number] [place] [address] Chr 13+18+21+X+Y aneuploidy Dosage of chromosome-specific cfDNA Ql (cfDNA) Negative Normal [facility] Comment on above: Order Comment: Speci men Type: BLOOD SPECIMENOrdering Facility: [facility] Address: [address] [place] [address] Performed By: #### M AT21 ####[facility] LABCLIA [id number] [place] [address] Chr 21 trisomy Dosage of chromosome-specific cfDNA Ql (cfDNA) Negative Normal [facility] Comment on above: Order Comment: Speci men Type: BLOOD SPECIMENOrdering Facility: [facility] Address: [address] [place] [address] Performed By: #### M AT21 ####[facility] LABCLIA [id number] [place] [address] Chr X and Y aneuploidy risk Sequencing Ql (cfDNA) [Interp] Not detected Normal [facility] Comment on above: Order Comment: Speci men Type: BLOOD SPECIMENOrdering Facility: [facility] Address: [address] [place] [address] Result Comment: Not Detected Not Detected Performed By: #### M AT21 ####[facility] LABCLIA [id number] [place] [address] Citation Issa (Reference lab test) Comment Normal [facility] Comment on above: Order Comment: Speci men Type: BLOOD SPECIMENOrdering Facility: [facility] Address: [address] [place] [address] Result Comment: 1. P shu JIMENEZ, et al. Jennifer Med. 2012;14(3):296-305. 2. Liberty CURRY, et al. Prenat Diag. 2013;33(6):591-597. 3. Maurice C, et al. Clin Chem. 2015 Apr;61(4):608-616. 4. Gael JIMENEZ, et al. Jennifer Med. 2011;13(11):913-920. 5. ACOG/SMFM Practice Bulletin No. 226, Dec 2019. Performed By: #### M AT21 ####[facility] LABCLIA [id number] [place] [address] Gestational age Estimated from conception date Garza Normal [facility] Comment on above: Order Comment: Speci men Type: BLOOD SPECIMENOrdering Facility: [facility] Address: [address] [place] [address] Performed By: #### M AT21 ####[facility] LABCLIA [id number] [place] [address] GESTATIONALAGE AGE > OR = 9W Yes Normal [facility] Comment on above: Order Comment: Speci men Type: BLOOD SPECIMENOrdering Facility: [facility] Address: [address] [place] [address] Performed By: #### M AT21 ####[facility] LABCLIA [id number] [place] [address] Laboratory comment Issa (Report) Comment Normal [facility] Comment on above: Order Comment: Speci men Type: BLOOD SPECIMENOrdering Facility: [facility] Address: [address] [place] [address] Result Comment: The MaterniT(R) 21 PLUS laboratory-developed test (LDT) analyzes circulating cell-free DNA from a maternal blood sample. This test is used for screening purposes and not diagnostic. Clinical correlation is recommended. Validation data on twin pregnancies is limited and the ability of this test to detect aneuploidy in higher multiple gestations has not yet been validated. Performed By: #### M AT21 ####Ogin[facility] [id number] [place] [id number] intelligence director name Nom (Provider) Comment Normal [facility] Comment on above: Order Comment: Speci men Type: BLOOD SPECIMENOrdering Facility: [facility] Address: [address] [place] [address] Result Comment: This specimen showed an expected representation of chromosome 21, 18 and 13 material. Clinical correlation is suggested. Comment Cj Morocho MD, PhD, Director, [facility] Performed By: #### M AT21 ####[facility] LABCLIA [id number] [place] [address] LIMITATIONS OF THE TEST Comment Normal [facility] Comment on above: Order Comment: Speci men Type: BLOOD SPECIMENOrdering Facility: [facility] Address: [address] [place] [address] Result Comment: Hien tolliver the results of these tests are highly reliable, discordant results, including inaccurate sex prediction, may occur due to placental, maternal, or mosaicism or neoplasm; vanishing twin; prior maternal organ transplant; or other causes. These tests are screening tests and not diagnostic; they do not replace the accuracy and precision of diagnosis with CVS or amniocentesis. A patient with a positive test result should be referred for genetic counseling and offered invasive diagnosis for confirmation of test results.[5] The results of this testing, including the benefits and limitations, should be discussed with a qualified healthcare provider. management decisions, including termination of the , should not be based on the results of these tests alone. The healthcare provider is responsible for the use of this information in the management of their patient. Sex chromosomal aneuploidies are not reportable for known multiple gestations. A negative result does not ensure an unaffected nor does it exclude the possibility of other chromosomal abnormalities or defects which are not a part of these tests. An uninformative result may be reported, the causes of which may include, but are not limited to, insufficient sequencing coverage, noise or artifacts in the region, amplification or sequencing bias, or insufficient fraction. These tests are not intended to identify pregnancies at risk for neural tube defects or ventral wall defects. Testing for whole chromosome abnormalities (including sex chromosomes) and for subchromosomal abnormalities could lead to the potential discovery of both and maternal genomic abnormalities that could have major, minor, or no, clinical significance. Evaluating the significance of a positive or a non-reportable result may involve both invasive testing and additional studies on the mother. Such investigations may lead to a diagnosis of maternal chromosomal or subchromosomal abnormalities, which on occasion may be associated with benign or malignant maternal neoplasms. These tests may not accurately identify triploidy, balanced rearrangements, or the precise location of subchromosomal duplications or deletions; these may be detected by diagnosis with CVS or amniocentesis. The ability to report results may be impacted by maternal BMI, maternal weight, maternal systemic lupus erythematosus (SLE) and/or by certain pharmaceutical agents such as low molecular weight heparin (for example: Lovenox(R), Xaparin(R), Clexane(R) and Fragmin(R)). Performed By: #### M AT21 ####[facility] [id number] [place] [address] Monosomy X risk Dosage of chromosome-specific cfDNA Ql (Plasma cell-free+WBC DNA) [Interp] Not detected Normal [facility] Comment on above: Order Comment: Laura gill Type: BLOOD SPECIMENOrdering Facility: [facility] Address: [address] [place] [address] Performed By: #### M AT21 ####[facility] LABThinque SystemsIA [id number] [place] [address] NEGATIVE PREDICTIVE VALUE Note Normal [facility] Comment on above: Order Comment: Laura gill Type: BLOOD SPECIMENOrdering Facility: [facility] Address: [address] [place] [address] Result Comment: The Negative Predictive Value (NPV) for trisomy 21, 18, and 13 is greater than 99%. The NPV for SCA and ESS cannot be calculated as SCA and ESS are only reported when an abnormality is detected. Performed By: #### M AT21 ####[facility] LABIA [id number] [place] [address] PERFORMANCE CHARACTERISTICS Note Normal [facility] Comment on above: Order Comment: Speci men Type: BLOOD SPECIMENOrdering Facility: [facility] Address: [address] [place] [address] Result Comment: ! Sex ! Accuracy: 99.4% ! ! ! ! Region (associated syndrome) ! Est. Sens# ! Est. Spec ! ! ! ! Trisomy 21 (Down Syndrome) ! 99.1% ! 99.9% ! ! ! ! Trisomy 18 (Camara Syndrome) ! >99.9% ! 99.6% ! ! ! ! Trisomy 13 (Patau Syndrome) ! 91.7% ! 99.7% ! ! ! ! Sex Chromosome Aneuploidies## ! 96.2% ! 99.7% ! ! ! * As reported in [facility] database nstd37 [https://www.ncbi.nlm.nih.gov/dbvar/studies/nstd37/ ] # Estimated Sensitivity. Sensitivity estimated across the observed size distribution of each syndrome [per ISCA database nstd37] and across the range of fractions observed in routine clinical NIPT. Actual sensitivity can also be influenced by other factors such as the size of the event, total sequence counts, amplification bias, or sequence bias. ## Garza gestation only. Performed By: #### M AT21 ####OginIA [id number] [place] [address] POSITIVE PREDICTIVE VALUE N/A Normal [facility] Comment on above: Order Comment: Speccharlene gill Type: BLOOD SPECIMENOrdering Facility: [facility] Address: [address] [place] [id number] Performed By: #### M AT21 ####[facility] LABCLIA [id number] [place] [address] Reference Lab Test Method Comment Normal [facility] Comment on above: Order Comment: Laura gill Type: BLOOD SPECIMENOrdering Facility: [facility] Address: [address] [place] [id number] Result Comment: See Notes Circulating cell-free DNA was purified from the plasma component of maternal blood. The extracted DNA was then converted into a genomic DNA library for aneuploidy analysis of chromosomes 21, 18, and 13 via next generation sequencing.[1] Optional findings based on the test order include sex chromosome aneuploidy (SCA)[2], and enhanced sequencing series (ESS)[3], which will only be reported on as an additional finding when an abnormality is detected. SCA testing includes information on X and Y representation, while ESS testing includes deletions in selected regions (22q, 15q, 11q, 8q, 5p, 4p, 1p) and trisomy of chromosomes 16 and 22. Performed By: #### M AT21 ####[facility] LABCLIA [id number] [place] [address] Service comment (Unsp spec) [Interp] Comment Normal [facility] Comment on above: Order Comment: Speci men Type: BLOOD SPECIMENOrdering Facility: [facility] Address: [address] [place] [address] Result Comment: See Notes [employer] is a subsidiary of [employer], using the brand [employer]. This test was developed and its performance characteristics determined by [employer]. It has not been cleared or approved by the Food and Drug Administration. This laboratory is certified under the Clinical Laboratory Improvement Amendments (CLIA) as qualified to perform high complexity clinical laboratory testing and accredited by the [employer] [place] [employer] (CAP). If there is future clinical need for adding MaterniT GENOME testing, this specimen will be available until term. [facility] samples will not be retained beyond 60 days. [facility] patients will have to send a new sample for re-sequencing ([facility] Test Code: 408128). Performed By: #### M AT21 ####[facility] LABCLIA [id number] [place] [address] Sex Dosage of chromosome-specific cfDNA Nom (cfDNA) Comment Normal [facility] Comment on above: Order Comment: Speci men Type: BLOOD SPECIMENOrdering Facility: [facility] Address: [address] [place] [address] Result Comment: Cons istent with Male Performed By: #### M AT21 ####[facility] LABCLIA [id number] [place] [address] Test performance information Issa (Unsp spec) Comment Normal [facility] Comment on above: Order Comment: Speci men Type: BLOOD SPECIMENOrdering Facility: [facility] Address: [address] [place] [address] Result Comment: The performance characteristics of the MaterniT(R) 21 PLUS laboratory-developed test (LDT) have been determined in a clinical validation study with women at increased risk for chromosomal aneuploidy.[1-4] Performed By: #### M AT21 ####[facility] LABCLIA [id number] [place] [address] Trisomy 13 risk Dosage of chromosome-specific cfDNA Ql (cfDNA) [Interp] Negative Normal [facility] Comment on above: Order Comment: Speci men Type: BLOOD SPECIMENOrdering Facility: [facility] Address: [address] [place] [address] Performed By: #### M AT21 ####[facility] LABCLIA [id number] [place] [address] Trisomy 18 risk Dosage of chromosome-specific cfDNA Ql (Plasma cell-free+WBC DNA) [Interp] Negative Normal [facility] Comment on above: Order Comment: Speci men Type: BLOOD SPECIMENOrdering Facility: [facility] Address: [address] [place] [address] Performed By: #### M AT21 ####[facility] LABCLIA [id number] [place] [address] POC FIRE EQUIPMENT INSPECTOR ULTRASOUNDon 06-29-19 Indication Viability; confirm cardiac activity, Uncertain dates Impression Single intrauterine gestational sac, cardiac activity is visualized Recommendations Follow up for 1st Trimester Anatomy with Nuchal Translucency as clinically indicated if desired. Method Transabdominal ultrasound examination Garza . Number of fetuses: 1 Dating Ultrasound examination on: 06/28/2024 GA by U/S based upon: AC, BPD, Femur, HC GA by U/S 17 w + 2 d JEFFERY by U/S: 12/04/2024 Assigned: based on ultrasound (AC, BPD, Femur, HC), selected on 06/28/2024 Assigned GA 17 w + 2 d Assigned JEFFERY: 12/04/2024 Biometry Standard BPD 35.4 mm 16w 6d 31% Hadlock HC 139.3 mm 17w 1d 44% Cristina AC 126.4 mm 18w 2d 79% Hadlock Femur 22.5 mm 16w 5d 35% Cristina Extended OFD 51.1 mm 17w 2d 77% Nicolaides Assessment BPD 35.4 mm 16w 6d 31% Hadlock Cardiac activity: present General Evaluation Cardiac activity present Performed By: Gina Kulkarni CNM Read By: Gina Kulkarni CNM MATERNAL MEDICINE [facility] Radiology Study observation (narrative) [facility] RUBELLA IGG ANTIBODYon 06-28 Interpretation and review of laboratory results Abnormal [facility] Rubella IgG, Qual Negative Abnormal Positive [facility] Comment on above: The result suggests no history of Rubella vaccination or exposure to Rubella virus, however, some individuals with past history of Rubella vaccination may test negative using this test as immunity to Rubella virus wanes over time after vaccination. Please correlate with vaccination history if applicable. [facility] RUBELLA IGG AB, QUAL Negative Abnormal Positive [facility] Comment on above: Order Comment: Speci men Type: BLOOD SPECIMENOrdering Facility: [facility] Address: [address] [place] [address] Result Comment: The result suggests no history of Rubella vaccination or exposure to Rubella virus, however, some individuals with past history of Rubella vaccination may test negative using this test as immunity to Rubella virus wanes over time after vaccination. Please correlate with vaccination history if applicable. Performed By: #### R UBIGG ####[facility] LABCLIA [id number] [place] [address] [place] Reagin and Treponema pallidu m IgG and IgM [Interp]on 06-28-2024 T. pallidum IgG+IgM IA Ql (S) Non-Reactive Nonreactive [facility] T. pallidum IgG+IgM IA Ql (S) Non-Reactive Normal Nonreactive [facility] Comment on above: Order Comment: Speci men Type: BLOOD SPECIMENOrdering Facility: [facility] Address: [address] [place] [address] Performed By: #### 7 3752-8, 76673-5, 5195-3 ####[facility] LABCLIA [id number] [place] [address] [place] Reagin+T pallidum IgG+IgM Se rPl-Impon 06-28-2024 Reagin and Treponema pallidum IgG and IgM [Interp] Cannot exclude recent Treponemal infection if specimen collected within 7-10 days after appearance of suspect lesions or 2-3 weeks after an exposure. Clinical correlation is required. Normal [facility] Comment on above: Order Comment: Speci men Type: BLOOD SPECIMENOrdering Facility: [facility] Address: [address] [place] [address] Performed By: #### 7 3752-8, 21569-2, 5195-3 ####[facility] LABCLIA [id number] [place] [address] [place] SYPHILIS TREPONEMAL W/REFLEX on 06-28-2024 Reagin and Treponema pallidum IgG and IgM [Interp] Cannot exclude recent Treponemal infection if specimen collected within 7-10 days after appearance of suspect lesions or 2-3 weeks after an exposure. Clinical correlation is required. [facility] TYPE + SCREEN PRENATALon ABO group Nom (Bld) O [facility] Blood group antibody screen Ql Negative [facility] Rh Nom (Bld) Positive [facility] Type and Screen Expiration 07/01/2024 23:59 [facility] ABO O Normal [facility] Comment on above: Order Comment: Speci men Type: BLOOD SPECIMENOrdering Facility: [facility] Address: [address] [place] [address] Performed By: #### T SPN ####[facility] BLOOD BANKCLIA [id number] [place] [address] [place] Rh Nom (Bld) Positive Normal [facility] Comment on above: Order Comment: Speci men Type: BLOOD SPECIMENOrdering Facility: [facility] Address: [address] [place] [address] Performed By: #### T SPN ####[facility] BLOOD BANKCLIA [id number] [place] [id number] [facility] [place] TYPE AND SCREEN EXPIRATION 07/01/2024 23:59 Normal [facility] Comment on above: Order Comment: Speci men Type: BLOOD SPECIMENOrdering Facility: [facility] Address: [address] [place] [address] Performed By: #### T SPN ####[facility] BLO[facility] BANKCLIA [id number] [address] OF [place] CNPNon 04-07-2024 CNPN Telephone (PEDSWS) JIMMY LEMA ([id number]) 3 F Date Time Provider Department 04/07/24 DIANA VELAZQUEZ During your visit today, we recorded the following information about you: Diana Velazquez PA-C 04/07/2024 5:33 AM Signed Please let patient know x-ray did indicate what is called a transitional vertebrae at the lumbosacral junction; however, given that patient is not experiencing any pain/discomfort, I am uncertain whether this is a contributing factor to what is occurring or just an incidental finding. Consult placed for Ortho/Sports medicine for further evaluation. ROBERTA Ellis Tracy, LPN 04/07/2024 8:55 AM Signed Patient was notified of advice and/or results. Pt is unable to schedule at this time and will call back when able. Michelle Christiansen 04/08/2024 8:51 AM Signed Patient contact office to schedule sports ortho consult. Tonal Regulator's decision tree advises to schedule patient to neurology for the area of concern, PSS unable to override decision tree. Please notify patient and schedulers how to proceed with scheduling patient in the appropriate department. Marah Nguyen, RN 04/08/2024 8:55 AM Signed Was the attempt to schedule through peds ortho? 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 - PNV no.95/ferrous fum/folic ac ( ORAL) Take by mouth. - Norethindrone, Contraceptive, 0.35 mg tablet Take 1 tablet by mouth once daily. - ferrous sulfate 325 mg (65 mg iron) tablet Take 1 tablet by mouth once daily. Problem List As Of Date 04/07/2024 Noted Resolved GBS bacteriuria [R82.71] 11/26/2022 Anemia complicating , third trimester *03/16/2023 Abnormal glucose tolerance in [O99.81*04/06/2023 Encounter Status:Closed by ELSY EVANS on 04/07/24 Normal [facility] XR Sacrum and Coccyx 3 Views on 04-06-2024 IMPRESSION: Transitional vertebra at the lumbosacral junction. Medical Instrument Technician: PSCB Transcribe Date/Time: Apr 06 2024 10:14A Dictated by : JOANNE HERRING MD This examination was interpreted and the report reviewed and electronically signed by: JOANNE HERRING MD on Apr 06 2024 10:16AM [facility] DIVISION OF RADIOLOGY * * *Final Report* * * DATE OF EXAM: Apr 05 2024 3:58PM WOX [id number] - XR SACRUM/COCCYX 3V AP/LAT / PROCEDURE REASON: Bony abnormality * * * * Physician Interpretation * * * * EXAM TITLE: XR SACRUM/COCCYX 3V AP/LAT EXAM DATE/TIME: 04/05/2024 3:58 PM COMPARISON: None. CLINICAL INDICATION/HISTORY: Bony abnormality. TECHNIQUE: AP and lateral views of the sacrum/coccyx are presented. FINDINGS: No acute fractures demonstrated in the sacrum. No subluxation of the coccyx. The other pelvic bones are intact. There is a transitional vertebra at the lumbosacral junction. The disc spaces are well preserved. There is no significant osteophyte formation. DIVISION OF RADIOLOGY Provider, [facility] - 04/06/2024 * * *Final Report* * * DATE OF EXAM: Apr 05 2024 3:58PM WOX [id number] - XR SACRUM/COCCYX 3V AP/LAT / PROCEDURE REASON: Bony abnormality * * * * Physician Interpretation * * * * EXAM TITLE: XR SACRUM/COCCYX 3V AP/LAT EXAM DATE/TIME: 04/05/2024 3:58 PM COMPARISON: None. CLINICAL INDICATION/HISTORY: Bony abnormality. TECHNIQUE: AP and lateral views of the sacrum/coccyx are presented. FINDINGS: No acute fractures demonstrated in the sacrum. No subluxation of the coccyx. The other pelvic bones are intact. There is a transitional vertebra at the lumbosacral junction. The disc spaces are well preserved. There is no significant osteophyte formation. IMPRESSION IMPRESSION: Transitional vertebra at the lumbosacral junction. Medical Instrument Technician: HIRAM Transcribe Date/Time: Apr 06 2024 10:14A Dictated by : JOANNE HERRING MD This examination was interpreted and the report reviewed and electronically signed by: JOANNE HERRING MD on Apr 06 2024 10:16AM [facility] XR Sacrum and Coccyx 3 Views Ordered By: [facility] Provider on 04-06-2024 [facility] CNOVon 04-05-2024 CNOV Office Visit (PEDSWS) JIMMY LEMA ([id number]) 3 F Date Time Provider Department 04/05/24 3:00 PM DIANA VELAZQUEZ During your visit today, we recorded the following information about you: Temperature Pulse Respiration Weight 98.1 degrees 86/minute 18/minute 52.2 kg Last Period 11/22/23 Diana Velazquez PA-C 04/13/2024 6:39 AM Signed PEDIATRIC VISIT SERVICE DATE: 04/05/2024 SUBJECTIVE: Jimmy Lema is a 19 year who presents for evaluation of lump located on her lower back - midline. Patient reports that it is right at the end of her spine. States it has been there for as long as she can remember, but got larger after she got . Now is more protuberant. States it is hard and non-mobile. Denies pain/tenderness. Does not believe there to be any overlying redness. No discharge or crusting as far as patient is aware. Denies numbness/tingling. No changes in sensation. No urinary incontinence. History was obtained from: patient HISTORY: ACTIVE PROBLEM LIST Abnormal Glucose Tolerance in - 04/06/2023 Comment: 04/06/23-Failed 1hr GCT, attempted 3hr GTT could not finish due to difficulty with blood draw. Recommend repeat 3hr GTT and will get this done. Radha Manrique APRN.CNM April 20, 2023 Vomited two different times trying to do this. will not reorder. Gemma Reaves MD Anemia Complicating , Third Trimester - 03/16/2023 Comment: 04/06/23-Hgb 10.3 at 28 wk, repeat at 32wk. Iron supplement. Radha Manrique APRN.CNM Gbs Bacteriuria - 11/26/2022 Comment: 04/06/23-GBS prophylaxis during labor. Radha Manrique APRN.CNM PAST MEDICAL HISTORY Diagnosis Date NEGATIVE MEDICAL HISTORY PAST SURGICAL HISTORY Procedure Laterality Date NONE ALLERGIES No Known Allergies PAIN RELIEF ES, ACETAMINOPHEN, 500 mg tablet TAKE 2 TABLETS BY MOUTH EVERY 6 HOURS NEEDED FOR PAIN OR FEVER ibuprofen (MOTRIN) 600 mg tablet Take 600 mg by mouth every 6 hours as needed. PNV no.95/ferrous fum/folic ac ( ORAL) Take by mouth. (Patient not taking: Reported on 04/05/2024) Norethindrone, Contraceptive, 0.35 mg tablet Take 1 tablet by mouth once daily. (Patient not taking: Reported on 04/05/2024) ferrous sulfate 325 mg (65 mg iron) tablet Take 1 tablet by mouth once daily. (Patient not taking: Reported on 07/29/2023) OBJECTIVE: Pulse 86 Temp 36.7 ?C (98.1 ?F) (Temporal) Resp 18 Wt 52.2 kg (115 lb) LMP 11/22/2023 (Approximate) BMI 20.37 kg/m? General: alert and active in no apparent distress, cooperative, pleasant Eyes: conjunctiva clear Nose: clear Neck: supple, no adenopathy Lungs: clear to auscultation bilaterally, good air exchange, no retractions, breathing comfortably, no wheezes, rales, or rhonchi CVS: Normal rate, regular rhythm, no murmur Back: Firm protuberant mass/lump present mid lower back. No tenderness to palpation. No overlying erythema or other skin changes. Full ROM without any pain/discomfort elicited Skin: No rashes, lesions or skin changes Neuro: Sensation intact, normal gait ASSESSMENT/PLAN: Encounter Diagnosis ICD-10-CM 1. Bony abnormality Q79.9 XR SACRUM/COCCYX 3V AP/LAT - Discussed with patient uncertainty at this time with diagnosis - Will proceed with x-ray for further evaluation - All questions answered - Follow up to be determined by imaging results SIGNATURE: Diana Velazquez PA-C PATIENT NAME:Jimmy Lema DATE: 04/05/2024 TIME: 3:11 PM Allergies As of Date: 04/05/2024 (No Known Allergies) Date Reviewed: 04/05/2024 Reviewed by: Ciarra Segal MA - Fully Assessed Reason for Visit: Lump on lower back [Other] Cmt: Lump lower back since she can remember. When she got it got larger. Sticks out now. Not painful. Hard but doesn't move. Not sure if it has drainage or not. Primary Visit Diagnosis:Bony abnormality [Q79.9] Order(s):XR SACRUM/COCCYX 3V AP/LAT [[id number]] Order #: [id number] FUTURE Prescriptions as of 04/13/2024 - PAIN RELIEF ES, ACETAMINOPHEN, 500 mg tablet TAKE 2 TABLETS BY MOUTH EVERY 6 HOURS NEEDED FOR PAIN OR FEVER - ibuprofen (MOTRIN) 600 mg tablet Take 600 mg by mouth every 6 hours as needed. - PNV no.95/ferrous fum/folic ac ( ORAL) Take by mouth. - Norethindrone, Contraceptive, 0.35 mg tablet Take 1 tablet by mouth once daily. - ferrous sulfate 325 mg (65 mg iron) tablet Take 1 tablet by mouth once daily. Problem List As Of Date 04/05/2024 Noted Resolved GBS bacteriuria [R82.71] 11/26/2022 Anemia complicating , third trimester *03/16/2023 Abnormal glucose tolerance in [O99.81*04/06/2023 Encounter Status:Closed by DIANA VELAZQUEZ on 04/13/24 Normal [facility] XR SACRUM/COCCYX 3V AP/LATon 04-05-2024 XR SACRUM/COCCYX 3V AP/LAT * * *Final Report* * * DATE OF EXAM: Apr 05 2024 3:58PM WOX [id number] - XR SACRUM/COCCYX 3V AP/LAT / PROCEDURE REASON: Bony abnormality * * * * Physician Interpretation * * * * EXAM TITLE: XR SACRUM/COCCYX 3V AP/LAT EXAM DATE/TIME: 04/05/2024 3:58 PM COMPARISON: None. CLINICAL INDICATION/HISTORY: Bony abnormality. TECHNIQUE: AP and lateral views of the sacrum/coccyx are presented. FINDINGS: No acute fractures demonstrated in the sacrum. No subluxation of the coccyx. The other pelvic bones are intact. There is a transitional vertebra at the lumbosacral junction. The disc spaces are well preserved. There is no significant osteophyte formation. IMPRESSION: Transitional vertebra at the lumbosacral junction. Medical Instrument Technician: PSCB Transcribe Date/Time: Apr 06 2024 10:14A Dictated by : JOANNE HERRING MD This examination was interpreted and the report reviewed and electronically signed by: JOANNE HERRING MD on Apr 06 2024 10:16AM EST [id number] CN Normal [facility] XR Sacrum and Coccyx 3 Views on 04-05-2024 Radiology Study observation (narrative) [facility] Lo 03-16-2024 EMMETT Telephone (OBGYWM) PITAJIMMY ([id number]) 3 F Date Time Provider Department 03/16/24 SIOMARA LANZA OBGYWM During your visit today, we recorded the following information about you: Siomara Lanza APRN.CNP 03/16/2024 8:54 AM Signed Based on urinalysis it does appear the patient has a urinary tract infection Macrobid into drug [facility] in [place]. Please notify patient. Siomara Lanza APRN.Chi Lerma RN 03/16/2024 10:03 AM Signed Pt notified and voiced understanding. Chi Galdamez RN Allergies As of Date: 03/16/2024 (No Known Allergies) Date Reviewed: 07/29/2023 Reviewed by: Paulina Chadwick APRN.MARKETING DEVELOPMENT SPECIALIST - Fully Assessed Reason for Visit: Results [95] Order(s):nitrofurant oin monohydrate and macrocrystal (MACROBID) 100 mg capsuleTake 1 capsule by mouth two times a day for 7 days.Disp: 14 capsuleRfl: 0 Prescriptions as of 03/16/2024 - nitrofurantoin monohydrate and macrocrystal (MACROBID) 100 mg capsule Take 1 capsule by mouth two times a day for 7 days. - PAIN RELIEF ES, ACETAMINOPHEN, 500 mg tablet TAKE 2 TABLETS BY MOUTH EVERY 6 HOURS NEEDED FOR PAIN OR FEVER - ibuprofen (MOTRIN) 600 mg tablet Take 600 mg by mouth every 6 hours as needed. - PNV no.95/ferrous fum/folic ac ( ORAL) Take by mouth. - Norethindrone, Contraceptive, 0.35 mg tablet Take 1 tablet by mouth once daily. - ferrous sulfate 325 mg (65 mg iron) tablet Take 1 tablet by mouth once daily. Problem List As Of Date 03/16/2024 Noted Resolved GBS bacteriuria [R82.71] 11/26/2022 Anemia complicating , third trimester *03/16/2023 Abnormal glucose tolerance in [O99.81*04/06/2023 Prescriptions ordered this encounter Disp Refills Start End NITROFURANTOIN MONOHYDRATE AND MACROCR* 14 c* 0 03/16/2024 03/23/2024 Route: ORAL Sig: Take 1 capsule by mouth two times a day for 7 days. Encounter Status:Closed by CHI GALDAMEZ on 03/16/24 Normal [facility] Bacteria Ur Culton Bacteria identified Cx Nom (U) ORGANISM ID: 1 50,000-<100,000 CFU/ml Staphylococcus aureus ORGANISM ID: 1 (STAPHYLOCOCCUS AUREUS) ANTIBIOTIC INTERPRETATION [place] STATUS REFERENCE RANGE Oxacillin S <=0.25 F Susceptible <=2 , Resistant >2 Oxacillin-susceptibl e staphylococci are susceptible to other penicilllinase-stabl e penicillins, beta-lactam/beta-lac tamase inhibitor combinations, anti-staphylococcal cephems, and carbapenems. Trimeth sulfameth S <=10 F Susceptible <=40 , Resistant >40 Vancomycin S 1 F Susceptible <=2 , Intermediate >2 , Resistant >8 Rifampin S <=0.5 F Susceptible <=1 , Intermediate >1 , Resistant >2 Rifampin should not be used alone for antimicrobial therapy. Tetracycline S <=1 F Susceptible <=4 , Intermediate >4 , Resistant >8 Doxycycline S <=0.5 F Susceptible <=4 , Intermediate >4 , Resistant >8 Nitrofurantoin S 32 F Susceptible <=32 , Intermediate >32 , Resistant >64 Abnormal [facility] Comment on above: Performed By: #### 6 30-4 ####[facility] [id number] [place] [address] [place] Urinalysis complete panel (U )on 03-15-2024 BACTERIA UL >9821 High Negative [facility] Comment on above: Order Comment: Speci men Type: URINE SPECIMENOrdering Facility: [facility] Address: [address] [place] [address] Performed By: #### 2 4356-8 ####[facility] [id number] [place] [address] [place] Bilirubin Ql (U) Negative Normal Negative [facility] Comment on above: Order Comment: Speci men Type: URINE SPECIMENOrdering Facility: [facility] Address: [address] [place] [address] Performed By: #### 2 4356-8 ####[facility] [id number] [place] [address] [place] Clarity (Unsp spec) Cloudy Abnormal Clear [facility] Comment on above: Order Comment: Speci men Type: URINE SPECIMENOrdering Facility: [facility] Address: [address] [place] [address] Performed By: #### 2 4356-8 ####[facility] [id number] [place] [address] [place] Color (U) Yellow Normal Yellow [facility] Comment on above: Order Comment: Speci men Type: URINE SPECIMENOrdering Facility: [facility] Address: [address] [place] [address] Performed By: #### 2 4356-8 ####[facility] [id number] [place] [address] [place] Epithelial cells LM.HPF (Urine sed) [#/Area] Many Normal [facility] Comment on above: Order Comment: Speci men Type: URINE SPECIMENOrdering Facility: [facility] Address: [address] [place] [address] Result Comment: Few Performed By: #### 2 4356-8 ####[facility] [id number] [place] [address] [place] Glucose Test strip (U) [Mass/Vol] Negative Normal Negative [facility] Comment on above: Order Comment: Speci men Type: URINE SPECIMENOrdering Facility: [facility] Address: [address] [place] [address] Performed By: #### 2 4356-8 ####[facility] [id number] [place] [address] [place] Hemoglobin Ql (U) 2+ Abnormal Negative [facility] Comment on above: Order Comment: Speci men Type: URINE SPECIMENOrdering Facility: [facility] Address: [address] [place] [address] Performed By: #### 2 4356-8 ####[facility] [id number] [place] [address] [place] Hyaline casts (Urine sed) [#/Area] 1-3 /LPF Abnormal 0 /LPF [facility] Comment on above: Order Comment: Speci men Type: URINE SPECIMENOrdering Facility: [facility] Address: [address] [place] [address] Performed By: #### 2 4356-8 ####[facility] [id number] [place] [address] [place] Ketones Ql (U) Trace Abnormal Negative [facility] Comment on above: Order Comment: Speci men Type: URINE SPECIMENOrdering Facility: [facility] Address: [address] [place] [address] Performed By: #### 2 4356-8 ####[facility] [id number] [place] [address] [place] Leukocyte esterase Test strip Ql (U) 1+ Abnormal Negative [facility] Comment on above: Order Comment: Speci men Type: URINE SPECIMENOrdering Facility: [facility] Address: [address] [place] [address] Performed By: #### 2 4356-8 ####[facility] [id number] [place] [address] [place] Nitrite Ql (U) Negative Normal Negative [facility] Comment on above: Order Comment: Speci men Type: URINE SPECIMENOrdering Facility: [facility] Address: [address] [place] [address] Performed By: #### 2 4356-8 ####[facility] [id number] [place] [address] [place] pH (U) 5.5 [pH] Normal <8.5 [facility] Comment on above: Order Comment: Speci men Type: URINE SPECIMENOrdering Facility: [facility] Address: [address] [place] [address] Performed By: #### 2 4356-8 ####[facility] [id number] [place] [address] [place] Protein (U) [Mass/Vol] 2+ Abnormal Negative [facility] Comment on above: Order Comment: Speci men Type: URINE SPECIMENOrdering Facility: [facility] Address: [address] [place] [address] Performed By: #### 2 4356-8 ####[facility] [id number] [place] [address] [place] RBC LM.HPF (Urine sed) [#/Area] /[HPF] Abnormal 0-2 /HPF [facility] Comment on above: Order Comment: Speci men Type: URINE SPECIMENOrdering Facility: [facility] Address: [address] [place] [address] Performed By: #### 2 4356-8 ####[facility] [id number] [place] [address] [place] Specific gravity (U) [Rel density] 1.026 Normal 1.005-1.030 [facility] Comment on above: Order Comment: Speci men Type: URINE SPECIMENOrdering Facility: [facility] Address: [address] [place] [address] Performed By: #### 2 4356-8 ####[facility] LABIA [id number] [place] [address] [place] Urobilinogen Ql (U) 0.2 EU/dL Normal 0.2-1.0 EU/dL [facility] Comment on above: Order Comment: Speci men Type: URINE SPECIMENOrdering Facility: [facility] Address: [address] [place] [address] Performed By: #### 2 4356-8 ####[facility] [id number] [place] [address] [place] WBC LM.HPF (Urine sed) [#/Area] /[HPF] Abnormal 0-5 /HPF [facility] Comment on above: Order Comment: Speci men Type: URINE SPECIMENOrdering Facility: [facility] Address: [address] [place] [address] Performed By: #### 2 4356-8 ####[facility] [id number] [place] [address] [place] Urgent Care Visit Reporton 0 12-01-2023 Urgent Care Visit Report [facility] [address], [address] [place], [place] [id number] OFFICE VISIT Date of Service: 12/01/23 MR#: [id number] Acct: [id number] Name: JIMMY LEMA Rep #: [id number] : 2005 Provider: KATLYN Gibbs Age/Sex: 18/F Location: [facility] [place] Status: Signed Intake Vital Signs 07/05/23 11:31 Height 5 ft 3 in Intake Visit Reasons: PRE EMP/NON DOT/PHYSICAL/[place] Chief Complaint: feeding assessment Allergies No Known Allergies Allergy (Verified 06/16/23 19:28) [facility] Medical History (Updated 12/01/23 @ 08:33 by KATLYN Mckeon) Physical exam, pre-employment Anemia Seizures Social History Smoking Status: Never smoker HPI HPI Chief Complaint: feeding assessment Details: JIMMY LEMA, is a 18 F who presents to the office today for Office Procedures Physical Exam Coding PE Coding Pre-employment PE: Yes Coding Level of Care Code No Charge Diagnoses Physical exam, pre-employment Z02.1 Assessment and Plan Assessment and Plan (1) Physical exam, pre-employment: Status: Acute 12/01/23 0840 Date [employer] Cosigner Signature: Date (if applicable) CC: Normal [facility] MR/BMS.BBCon 07-05-2023 MR/BMS.BBC [facility] [address] [place] [address] OFFICE VISIT Date of Service: 06/23/23 MR#: [id number] Acct: [id number] Name: JMIMY LEMA Rep #: [id number] : 2005 Provider: Geovanna Traylor NP Age/Sex: 18/F [place] [facility] Status: Signed Intake Vital Signs 06/16/23 19:30 04/29/24 11:31 Height 5 ft 3 in 5 ft 3 in Intake Visit Reasons: Visit Chief Complaint: feeding assessment Accompanied by: Significant Other Allergies No Known Allergies Allergy (Verified 06/16/23 19:28) : Yes PFSH PFSH Medical History (Updated 06/26/23 @ 00:43 by Kayla Silver) Anemia Seizures Social History Smoking Status: Never smoker History Elective abortions Hx Para 0 Spontaneous abortions Hx # Term Pregnancies Ectopic pregnancies Hx # Pregnancies Multiple births # of living children HPI HPI HPI: JIMMY LEMA, is a 18 F who presents to the office today for feeding assessment, switching to pumping and feeding. History provided by the patient. ROS ROS Const Constitutional: Denies fever(s) or lethargy : Denies nipple discharge Skin Skin/Breast: Denies breast pain, breast skin changes or nipple discharge Details: switched to pumping and feeding, no longer wanting to put baby to breast, pumping q2-3 hours, 4-6 oz, has been taking motrin d/t engorgement, minimal nipple pain with pumping Exam Maternal Assessment Breast Assessment Bilateral Breasts: Firm Nipple Assessment Bilateral Nipples: Everted Areolar Tissue Areolar Tissue: Pliable Assessment Baby Feeding History Is your baby latching onto the breast: No Supplements Supplement Type:: Expressed milk Frequency: q2-3 hours Amount: 2-3.5 oz Breast Pumping Type of Breast Pump: Zomee Frequency: q2-3 hours Amount: 4-6 oz Reason for supplements or pumping:: Maternal choice to pump and feed Goals Breast Feeding Goals: To provide as much breastmilk as possible Exam Const General: comfortable and no acute distress Orientation: alert and oriented x3 Chest Breast inspection: normal inspection of the breasts Breast palpation: abnormal palpation of the breast (firm, no warmth ) Other: bilateral nipples slight reddened Resp Effort Inspection: normal respiratory effort Skin General: no rashes or lesions noted Psych Appearance: grossly normal Mental Status: mental status grossly normal Affect: normal affect Assessment and Plan Assessment and Plan (1) Engorgement of breast associated with childbirth, : Plan: Educated on pumping q 3 hours, ice, motrin, breast gymanstics. Monitor for signs of infection and call office right away. (2) Care and examination of lactating mother: Plan: Educated on pumping, milk storage, milk regulation. Follow up with PRN. Coding Level of Care Code Off vis,new,level 3 Diagnoses Engorgement of breast associated with childbirth, O92.79 Care and examination of lactating mother Z39.1 Clinical Quality Measures High Blood Pressure Screening/Follow Up High Blood Pressure follow-up Instructions: Recommended Blood Pressure Follow-Up Interventions: *Normal BP: No follow-up required for SBP < 120 mmHg and DBP < 80 mmHg: *Elevated BP: Patients with SBP of 120-129 mmHg and DBP < 80 mmHg: *Referral to Alternate/Primary Care Health Cryptologic Supervisor OR * Follow-up with rescreen in 2 to 6 months AND recommend nonpharmacologic interventions * First Hypertensive BP Reading: Patients with one elevated reading of SBP >=130 mmHg OR DBP >= 80 mmHg: *Referral to Alternate/Primary Care Health Professional OR *Follow-up with rescreen in >1 day and < 4 weeks AND recommend nonpharmacologic interventions *Second Hypertensive BP Reading: *Second Hypertensive BP Reading:Patients with second elevated reading of SBP of 130-139 mmHg or DBP of 80-89 mmHg (and not SBP >=140 or DBP >=90): * Referral to Alternate/Primary Care Health Cryptologic Supervisor OR *Nonpharmacological Intervention AND reassessment in 2-6 months AND an order for a laboratory test or ECG for hypertension *Second Hypertensive BP Reading: SBP >=140 or DBP >=90 *Referral to Alternate/Primary Care Healthcare Professional OR *Nonpharmacological Intervention AND BP lowering medication AND reassessment within 4 weeks AND an order for a laboratory test or ECG for hypertension BP Second Hypertensive Readings: For both questions related to the second hypertensive readings, orders for lab/ECG need to be placed in addition to responding to the non-pharmacological and follow up questions. 07/05/23 1149 Date ___ (more content not included)... Normal [facility] CBC W/Diff, Automatedon 06-06 Absolute Neut Normal 2.0-7.7 [facility] Comment on above: Order Comment: Comme nts: First day Result Comment: LACHO ENT DISCHARGED Performed By: #### L 100.0100 #### [facility] [address] [place], [address] HCT Normal 37-47 [facility] Comment on above: Order Comment: Comme nts: First day Result Comment: LACHO ENT DISCHARGED Performed By: #### L 100.0100 #### [facility] [address] [place], [address] HGB Normal 12.0-15.0 [facility] Comment on above: Order Comment: Comme nts: First day Result Comment: LACHO ENT DISCHARGED Performed By: #### L 100.0100 #### [facility] [address] [place], [address] MCH Normal 27.0-32.0 [facility] Comment on above: Order Comment: Comme nts: First day Result Comment: LACHO ENT DISCHARGED Performed By: #### L 100.0100 #### [facility] [address] [place], [address] MCHC Normal 32-36 [facility] Comment on above: Order Comment: Comme nts: First day Result Comment: LACHO ENT DISCHARGED Performed By: #### L 100.0100 #### [facility] [address] [place], [address] MCV Normal 81-99 [facility] Comment on above: Order Comment: Comme nts: First day Result Comment: LACHO ENT DISCHARGED Performed By: #### L 100.0100 #### [facility] [address] [place], [address] NEUT% Normal 47-70 [facility] Comment on above: Order Comment: Comme nts: First day Result Comment: LACHO ENT DISCHARGED Performed By: #### L 100.0100 #### [facility] [address] [place], [address] PLT Normal 150-450 [facility] Comment on above: Order Comment: Comme nts: First day Result Comment: LACHO ENT DISCHARGED Performed By: #### L 100.0100 #### [facility] [address] [place], [address] RBC Normal 4.2-5.4 [facility] Comment on above: Order Comment: Comme nts: First day Result Comment: LACHO ENT DISCHARGED Performed By: #### L 100.0100 #### [facility] [address] [place], [address] RDW CV Normal 11.6-14.6 [facility] Comment on above: Order Comment: Comme nts: First day Result Comment: LACHO ENT DISCHARGED Performed By: #### L 100.0100 #### [facility] [address] [place], [address] RDW SD Normal 35.1-43.9 [facility] Comment on above: Order Comment: Comme nts: First day Result Comment: LACHO ENT DISCHARGED Performed By: #### L 100.0100 #### [facility] [address] [place], [address] WBC Normal 4.4-11.0 [facility] Comment on above: Order Comment: Comme nts: First day Result Comment: LACHO ENT DISCHARGED Performed By: #### L 100.0100 #### [facility] [address] [place], [address] CBC W/Diff, Automatedon - Absolute Neut Normal 2.0-7.7 [facility] Comment on above: Order Comment: Comme nts: First day Result Comment: Canc elled via OM: Order edited - Discontinuing original order Performed By: #### L 100.0100 #### [facility] [address] [place], [address] HCT Normal 37-47 [facility] Comment on above: Order Comment: Comme nts: First day Result Comment: Canc elled via OM: Order edited - Discontinuing original order Performed By: #### L 100.0100 #### [facility] [address] [place], [address] HGB Normal 12.0-15.0 [facility] Comment on above: Order Comment: Comme nts: First day Result Comment: Canc elled via OM: Order edited - Discontinuing original order Performed By: #### L 100.0100 #### [facility] [address] [place], [address] MCH Normal 27.0-32.0 [facility] Comment on above: Order Comment: Comme nts: First day Result Comment: Canc elled via OM: Order edited - Discontinuing original order Performed By: #### L 100.0100 #### [facility] [address] [place], [address] MCHC Normal 32-36 [facility] Comment on above: Order Comment: Comme nts: First day Result Comment: Canc elled via OM: Order edited - Discontinuing original order Performed By: #### L 100.0100 #### [facility] [address] [place], [address] MCV Normal 81-99 [facility] Comment on above: Order Comment: Comme nts: First day Result Comment: Canc elled via OM: Order edited - Discontinuing original order Performed By: #### L 100.0100 #### [facility] [address] [place], [address] NEUT% Normal 47-70 [facility] Comment on above: Order Comment: Comme nts: First day Result Comment: Canc elled via OM: Order edited - Discontinuing original order Performed By: #### L 100.0100 #### [facility] [address] [place], [address] PLT Normal 150-450 [facility] Comment on above: Order Comment: Comme nts: First day Result Comment: Canc elled via OM: Order edited - Discontinuing original order Performed By: #### L 100.0100 #### [facility] [address] [place], [address] RBC Normal 4.2-5.4 [facility] Comment on above: Order Comment: Comme nts: First day Result Comment: Canc elled via OM: Order edited - Discontinuing original order Performed By: #### L 100.0100 #### [facility] [address] [place], [address] RDW CV Normal 11.6-14.6 [facility] Comment on above: Order Comment: Comme nts: First day Result Comment: Canc elled via OM: Order edited - Discontinuing original order Performed By: #### L 100.0100 #### [facility] [address] [place], [address] RDW SD Normal 35.1-43.9 [facility] Comment on above: Order Comment: Comme nts: First day Result Comment: Canc elled via OM: Order edited - Discontinuing original order Performed By: #### L 100.0100 #### [facility] [address] [place], [address] WBC Normal 4.4-11.0 [facility] Comment on above: Order Comment: Comme nts: First day Result Comment: Canc elled via OM: Order edited - Discontinuing original order Performed By: #### L 100.0100 #### [facility] [address] [place], [address] Operative Reporton 4 Operative Report [facility] Medical Records Department [address] [place] [address] Operative Report 06/17/23 1339 MR#: [id number] Acct: [id number] Name: JIMMY LEMA Rep #: [id number] : 2005 18 From: Marium Stevenson MD PCP: Care Physician,No Primary Status:ADM IN Location: [id number] Assessment Plan (1) (spontaneous vaginal delivery): (2) 40 weeks gestation of : Maternal Data Information JEFFERY Calculator Estimated Delivery Date Method Current WG Current Estimate 06/11/23 Manual 40w 6d Final JEFFERY: 06/11/23 Gestational age: 40+6 Vaginal Delivery Maternal Presentation Maternal Presentation: Elective Induction Type of Induction: Villalobos Bulb Operative Information Date of Procedure: 06/17/23 Pre-Operative Diagnosis: Term induction of labor Post-Operative Diagnosis: same Surgery / Procedure Performed: Spontaneous Vaginal Delivery Type of Anesthesia: Epidural Drain: Villalobos to straight drain Estimated Blood Loss: 150 cc Time of Delivery: 13:41 Findings Description of Procedure: After Villalobos bulb induction and Pitocin administration patient progressed to complete and pushed for 15 minutes over an intact perineum. HALLEY with loose nuchal cord. The anterior and posterior shoulder delivered easily. Delayed cord clamping was performed. Cord blood was collected. The placenta delivered with gentle traction. Bilateral labial lacerations repaired with 3-0 Vicryl Presentation: Vertex and HALLEY Amniotic Membrane Rupture Type: Artificial Amniotic Fluid Description: Clear Placental Delivery Description: Spontaneous Placenta Disposition: [facility] Cord Vessel Description: 3 Vessels Cord Entanglement: Around neck x 1, loose Nuchal Cord Compression: Without compression A Gender: Female (1 minute): 8 (5 minute): 9 Delayed Cord Clamping: Yes Post Vaginal Delivery Medications Given After Delivery: IV Pitocin Episiotomy Description: None Laceration: None (bilateral labial) Complication Complications: None 06/17/23 1346 Cosigner Signature (if applicable): CC: Dr. Marium Stevenson MD; No Primary Care Physician Signed Normal [facility] Absolute lymphocyte countOrd ered By: Gina Kulkarni on 06-16-2023 Lymphocytes Auto (Unsp spec) [#/Vol] 1.70 10*3/uL 0.83-4.51 [facility] Automated lymphocyte count a s percentage of total leukocytesOrdered By: Gina Kulkarni on 06-16-2023 Lymphocytes/100 WBC Auto (Unsp spec) 14.0 % 19-41 [facility] Basophil percentageOrdered B y: Gina Kulkarni on 06-16-2023 Basophils/100 WBC (Bld) 0.3 % 0-1 [facility] Eosinophils/100 WBC (Bld) 0.3 % 0-5 [facility] Hemoglobin (Bld) [Mass/Vol] 12.0 g/dL 12.0-15.0 [facility] Monocytes/100 WBC (Bld) 8.1 % 0-10 [facility] Neutrophils (Bld) [#/Vol] 9.2 10*3/uL 2.0-7.7 [facility] Neutrophils/100 WBC (Bld) 75.7 % 47-70 [facility] WBC (Bld) [#/Vol] 12.2 10*3/uL 4.4-11.0 [facility] CBC W/Diff, Automatedon 06-06 Absolute Lymph 1.70 X10 3/uL Normal 0.83-4.51 [facility] Comment on above: Performed By: #### L 100.0100, BTS #### [facility] [address] [place], [address] Absolute Neut 9.2 X10 3/uL High 2.0-7.7 [facility] Comment on above: Performed By: #### L 100.0100, BTS #### [facility] [address] [place], [address] Basophils/100 WBC (Bld) 0.3 % Normal 0-1 [facility] Comment on above: Performed By: #### L 100.0100, BTS #### [facility] [address] [place], [address] Eosinophils/100 WBC (Bld) 0.3 % Normal 0-5 [facility] Comment on above: Performed By: #### L 100.0100, BTS #### [facility] [address] [place], [address] Erythrocyte distribution width (RBC) [Ratio] 13.8 % Normal 11.6-14.6 [facility] Comment on above: Performed By: #### L 100.0100, BTS #### [facility] [address] [place], [address] Hematocrit (Bld) [Volume fraction] 35.5 % Low 37-47 [facility] Comment on above: Performed By: #### L 100.0100, BTS #### [facility] [address] [place], [address] Hemoglobin (Bld) [Mass/Vol] 12.0 g/dL Normal 12.0-15.0 [facility] Comment on above: Performed By: #### L 100.0100, BTS #### [facility] [address] [place], [address] IG% 1.600 High 0.0-0.9 [facility] Comment on above: Result Comment: IG% - Immature Granulocytes (promyelocytes, myelocytes and metamyelocytes) > 1% indicates that a LEFT SHIFT is Present. Performed By: #### L 100.0100, BTS #### [facility] [address] [place], [address] Lymphocytes/100 WBC (Bld) 14.0 % Low 19-41 [facility] Comment on above: Performed By: #### L 100.0100, BTS #### [facility] [address] [place], [address] MCH (RBC) [Entitic mass] 32.0 pg Normal 27.0-32.0 [facility] Comment on above: Performed By: #### L 100.0100, BTS #### [facility] [address] [place], [address] MCHC (RBC) [Mass/Vol] 33.8 g/dL Normal 32-36 [facility] Comment on above: Performed By: #### L 100.0100, BTS #### [facility] [address] [place], [address] MCV (RBC) [Entitic vol] 94.7 fL Normal 81-99 [facility] Comment on above: Performed By: #### L 100.0100, BTS #### [facility] [address] [place], [address] Monocytes/100 WBC (Bld) 8.1 % Normal 0-10 [facility] Comment on above: Performed By: #### L 100.0100, BTS #### [facility] [address] [place], [address] Neutrophils/100 WBC (Bld) 75.7 % High 47-70 [facility] Comment on above: Performed By: #### L 100.0100, BTS #### [facility] [address] [place], [address] Nucleated RBC (Bld) [#/Vol] 0 10*3/uL Normal 0-5 [facility] Comment on above: Performed By: #### L 100.0100, BTS #### [facility] [address] [place], [address] Platelet mean volume (Bld) [Entitic vol] 10.6 fL Normal 6.2-12.0 [facility] Comment on above: Performed By: #### L 100.0100, BTS #### [facility] [address] [place], [address] Platelets (Bld) [#/Vol] 214 10*3/uL Normal 150-450 [facility] Comment on above: Performed By: #### L 100.0100, BTS #### [facility] [address] [place], [address] RBC (Bld) [#/Vol] 3.75 10*6/uL Low 4.2-5.4 [facility] Comment on above: Performed By: #### L 100.0100, BTS #### [facility] [address] [place], [address] RDW SD 48.0 fl High 35.1-43.9 [facility] Comment on above: Performed By: #### L 100.0100, BTS #### [facility] [address] [place], [address] WBC (Bld) [#/Vol] 12.2 10*3/uL High 4.4-11.0 [facility] Comment on above: Performed By: #### L 100.0100, BTS #### [facility] [address] [facility] [place], [address] Determination of erythrocyte mean corpuscular volume (MCV)Ordered By: Gina Kulkarni on 06-16-2023 MCV (RBC) [Entitic vol] 94.7 fL 81-99 [facility] Erythrocyte distribution wid th ratioOrdered By: Gina Kulkarni on 06-16-2023 Erythrocyte distribution width (RBC) [Ratio] 13.8 % 11.6-14.6 [facility] Erythrocyte distribution wid th standard deviationOrdered By: Gina Kulkarni on 06-16-2023 Erythrocyte distribution width (RBC) [Entitic vol] 48.0 fL 35.1-43.9 [facility] H AND P Exam - OB/GYNon 04- H&P Exam - EXTERNAL GRINDER [facility] Medical Records Department [address] [place] [address] H P Exam - EXTERNAL GRINDER 06/16/232006 MR#: [id number] Acct: [id number] Name: JIMMY LEMA Rep #: [id number] : 2005 18 From: Gina Kulkarni CNM PCP: Care Physician,No Primary Status:ADM IN Location: [id number] HPI - General General Date of Admission: 06/16/23 HPI Narrative JIMMY LEMA, is a 18 F at 40.5 weeks gestation who presents for an elective induction of labor. Maternal Data Information JEFFERY Calculator Estimated Delivery Date Method Current WG Current Estimate 06/11/23 Manual 40w 5d PFSH PFS Medical History (Updated 06/16/23 @ 20:11 by Gina Kulkarni CNM) Anemia Seizures Allergy/AdvReac Type Severity Reaction Status Date / Time No Known Allergies Allergy Verified 06/16/23 19:28 Social History Smoking Status: Never smoker History Elective abortions Hx Para 0 Spontaneous abortions Hx # Term Pregnancies Ectopic pregnancies Hx # Pregnancies Multiple births # of living children ROS Eyes Eyes: Denies blurry vision, change in vision or spots in vision ENT HEENT: Denies dizziness or headache(s) Cardiovascular Cardiovascular: Denies abdominal pain, chest pain or dyspnea Respiratory/Chest Respiratory/Chest: Denies cough, dyspnea, shortness of breath at rest or shortness of breath with exertion Gastrointestinal Gastrointestinal: Denies abdominal pain, diarrhea or vomiting Genitourinary Genitourinary: Denies change in urinary stream, difficulty urinating or dysuria Musculoskeletal Musculoskeletal: Reports none Integumentary Integumentary: Denies rash Neurologic Neurologic: Denies dizziness, headache(s), memory loss or weakness Psychiatric Psychiatric: Reports none Vital Signs Vital Signs Vital Signs: 06/16/23 19:22 06/16/23 19:22 06/16/23 19:24 Temperature Temperature Source Temporal Pulse Rate 90 Respiratory Rate Blood Pressure 131/89 H BP Systolic 131 BP Diastolic 89 06/16/23 19:24 06/16/23 19:24 Temperature 98.6 F Temperature Source Pulse Rate Respiratory Rate 16 Blood Pressure BP Systolic BP Diastolic Weight Weight: 147 lb Body Mass Index (BMI) 26.0 Physical Exam Const alert, oriented x3 and no apparent distress General Appearance: cooperative Orientation / Consciousness: awake Exam Limitations: no limitations HEENT normocephalic Head and Scalp: normal to inspection Eyes General Eye: normal appearance of both eyes Neck full ROM and no lymphadenopathy Lymph Lymphatic: no lymphadenopathy noted Chest inspection of chest normal Resp normal respiratory effort, normal air movement and clear to auscultation bilaterally Effort and Inspection: able to speak in complete sentences and symmetric chest movement Cardio regular rate and regular rhythm GI normal to inspection, nondistended, normoactive bowel sounds Back/Spine normal ROM Extremity full ROM and no calf tenderness Skin no rashes or lesions noted General Skin Exam: no breakdown Neuro oriented x3 and CN's II-XII intact bilaterally Psych mental status grossly normal and thought process normal Labs Labs Labs: Blood Type Pending Antibody Screen NEGATIVE Hct 35.5 % (37-47) L Hgb 12.0 g/dL (12.0-15.0) Syphilis Total Ab Non-reactive GBS positive Assessment Plan (1) 40 weeks gestation of : (2) High risk teen : (3) Anemia affecting : (4) GBS bacteriuria: (5) Encounter for elective induction of labor: (6) History of elevated glucose: COMMENT: 1 hour GCT elevated and patient was unable to complete 3 hour GTT PLAN: Plan Admit to labor and delivery CE / Routine labs Start IV and run fluids per orders GBS positive- Start PCN 5 million units IV x 1 now and continue PCN 3 million units IV every 4 hours until delivery Cytotec 25 mcg PO every 4 hours x 6 doses total Villalobos bulb unable to be placed at this time due to acuity on unit Dr. Reaves notified of admission and is collaborating physician 06/16/23 0170 Cosigner Signature (if applicable): CC: ARELIS Kulkarni; No Primary Care Physician Signed Normal [facility] Hematocrit Auto (Bld) [Volum e fraction]Ordered By: Gina Kulkarni on 06-16-2023 Hematocrit (Bld) [Volume fraction] 35.5 % 37-47 [facility] Immature granulocytes/100 WB C Auto (Bld)Ordered By: Gina Kulkarni on 06-16-2023 Immature granulocytes/100 WBC (Bld) 1.600 % 0.0-0.9 [facility] Comment on above: IG% - Immature Granu locytes (promyelocytes, myelocytes and metamyelocytes) > 1% indicates that a LEFT SHIFT is Present. L509.8000on 06-16-2023 Syphilis Abs Non-Reactive Normal [facility] Comment on above: Performed By: #### L 509.8000 #### [facility] [place], [address] Laboratory - Hematology and Cell countsOrdered By: Gina Kulkarni on 06-16-2023 MCH (RBC) [Entitic mass] 32.0 pg 27.0-32.0 [facility] MCHC (RBC) [Mass/Vol] 33.8 g/dL 32-36 [facility] Nucleated RBC/100 WBC (Bld) [Ratio] 0 % 0-5 [facility] Platelet mean volume (Bld) [Entitic vol] 10.6 fL 6.2-12.0 [facility] Platelets (Bld) [#/Vol] 214 10*3/uL 150-450 [facility] RBC Auto (Bld) [#/Vol]Ordere d By: Gina Kulkarni on 06-16-2023 RBC (Bld) [#/Vol] 3.75 10*6/uL 4.2-5.4 [facility] Serum Treponema species anti body detectionOrdered By: Gina Kulkarni on 06-16-2023 Treponema sp Ab Ql (S) Non-Reactive [facility] Type AND Screenon 06-16-2023 Ab SCREEN GEL Negative Normal [facility] Comment on above: Order Comment: LABOR Performed By: #### B TS #### [facility] [address] [place], [address] ABO and Rh group Nom (Bld) Blood group O Rh(D) positive Normal [facility] Comment on above: Order Comment: LABOR Performed By: #### B TS #### [facility] [address] [place], [address] A1 CELL Not performed Normal [facility] Comment on above: Order Comment: Labor Result Comment: QNS NOTIFIED WP REDRAW IS NEEDED [facility] -10 Performed By: #### L 100.0100, BTS #### [facility] [address] [place], [address] Ab SCREEN GEL Not performed Normal [facility] Comment on above: Order Comment: Labor Result Comment: QNS NOTIFIED WP REDRAW IS NEEDED [facility] -10 Performed By: #### L 100.0100, BTS #### [facility] [address] [place], [address] ABO and Rh group Nom (Bld) Test Not Performed Normal [facility] Comment on above: Order Comment: Labor Result Comment: QNS NOTIFIED WP REDRAW IS NEEDED [facility] -10 Performed By: #### L 100.0100, BTS #### [facility] [address] [place], [address] ANTI A Not performed Normal [facility] Comment on above: Order Comment: Labor Result Comment: QNS NOTIFIED WP REDRAW IS NEEDED [facility] - Performed By: #### L 100.0100, BTS #### [facility] [address] [place], [address] ANTI B Not performed Normal [facility] Comment on above: Order Comment: Labor Result Comment: QNS NOTIFIED WP REDRAW IS NEEDED [facility] 06-15 Performed By: #### L 100.0100, BTS #### [facility] [address] [place], [address] ANTI D Not performed Normal [facility] Comment on above: Order Comment: Labor Result Comment: QNS NOTIFIED WP REDRAW IS NEEDED [facility] 06-15 Performed By: #### L 100.0100, BTS #### [facility] [address] [place], [address] B CELLS Not performed Normal [facility] Comment on above: Order Comment: Labor Result Comment: QNS NOTIFIED WP REDRAW IS NEEDED [facility] -10 Performed By: #### L 100.0100, BTS #### [facility] [address] [place], [address] BLD TYPE RECHEK Not performed Normal [facility] Comment on above: Order Comment: Labor Result Comment: QNS NOTIFIED WP REDRAW IS NEEDED [facility] -10 Performed By: #### L 100.0100, BTS #### [facility] [address] [place], [address] URINE OB DIP B/Oon 4 Glucose Ql (U) Negative Neg mg/dL [facility] Protein.monoclonal (U) [Mass/Vol] 100 mg/dL Neg mg/dL [facility] URINE OB DIP B/Oon 4 Glucose Ql (U) Negative Neg mg/dL [facility] Protein.monoclonal (U) [Mass/Vol] Negative Neg mg/dL [facility] URINE OB DIP B/Oon 4 Glucose Ql (U) Negative Neg mg/dL [facility] Protein.monoclonal (U) [Mass/Vol] trace Neg mg/dL [facility] URINE OB DIP B/Oon 4 Glucose Ql (U) Negative Neg mg/dL [facility] Protein.monoclonal (U) [Mass/Vol] Negative Neg mg/dL [facility] URINE OB DIP B/Oon 4 Glucose Ql (U) Negative Neg mg/dL [facility] Protein.monoclonal (U) [Mass/Vol] Negative Neg mg/dL [facility] URINE OB DIP B/Oon 4 Glucose Ql (U) Negative Neg mg/dL [facility] Protein.monoclonal (U) [Mass/Vol] Negative Neg mg/dL [facility] OBSTETRIC ULTRASOUND Ion 1 04-19-2022 [facility] URINE OB DIP B/Oon 3 Glucose Ql (U) Negative Neg mg/dL [facility] Protein.monoclonal (U) [Mass/Vol] Negative Neg mg/dL [facility] OBSTETRIC ULTRASOUND Ion 1 03-22-2022 [facility] URINE OB DIP B/Oon 3 Glucose Ql (U) Negative Neg mg/dL [facility] Protein.monoclonal (U) [Mass/Vol] Negative Neg mg/dL [facility] URINE OB DIP B/Oon 3 Glucose Ql (U) Negative Neg mg/dL [facility] Protein.monoclonal (U) [Mass/Vol] Negative Neg mg/dL [facility] Vital Signs Date Time Vital Sign Value Performing Clinician Facility 10-10-2024 15:29-0400 Body temperature 97.6 [degF] No Primary Care Physician [facility] 10-10-2024 15:29-0400 Respiratory rate 16 /min No Primary Care Physician [facility] 10-10-2024 15:28-0400 Diastolic blood pressure 79 mm[Hg] No Primary Care Physician [facility] 10-10-2024 15:28-0400 Heart rate 103 /min No Primary Care Physician [facility] 10-10-2024 15:28-0400 Systolic blood pressure 121 mm[Hg] No Primary Care Physician [facility] 10-10-2024 15:21-0400 Body height 160.02 cm No Primary Care Physician [facility] 10-10-2024 15:21-0400 Body mass index (BMI) [Ratio] 23 kg/m2 No Primary Care Physician [facility] 10-10-2024 15:21-0400 Body weight 59 kg No Primary Care Physician [facility] 10-05-2024 09:50-0400 Body mass index (BMI) [Ratio] 22.85 kg/m2 Gina Plotirina CERTIFIED HAND THERAPIST.CNM Work Phone: [facility] 10-05-2024 09:50-0400 Body weight 58.51 kg Gina Plotts CERTIFIED HAND THERAPIST.CNM Work Phone: [facility] 10-05-2024 09:50-0400 Diastolic blood pressure 60 mm[Hg] Gina Plotts CERTIFIED HAND THERAPIST.CNM Work Phone: [facility] 10-05-2024 09:50-0400 Systolic blood pressure 98 mm[Hg] Gina Plotts CERTIFIED HAND THERAPIST.CNM Work Phone: [facility] 09-17-2024 08:39-0400 Body mass index (BMI) [Ratio] 22.1 kg/m2 Crista Moomaw CERTIFIED HAND THERAPIST.MARKETING DEVELOPMENT SPECIALIST Work Phone: [facility] 09-17-2024 08:39-0400 Body temperature 96.91 [degF] Crista Moomaw CERTIFIED HAND THERAPIST.MARKETING DEVELOPMENT SPECIALIST Work Phone: [facility] 09-17-2024 08:39-0400 Body weight 56.6 kg Crista Moomaw CERTIFIED HAND THERAPIST.MARKETING DEVELOPMENT SPECIALIST Work Phone: [facility] 09-17-2024 08:39-0400 Diastolic blood pressure 62 mm[Hg] Crista Moomaw CERTIFIED HAND THERAPIST.MARKETING DEVELOPMENT SPECIALIST Work Phone: [facility] 09-17-2024 08:39-0400 Heart rate 94 /min Crista Moomaw CERTIFIED HAND THERAPIST.MARKETING DEVELOPMENT SPECIALIST Work Phone: [facility] 09-17-2024 08:39-0400 Respiratory rate 18 /min Crista Moomaw CERTIFIED HAND THERAPIST.MARKETING DEVELOPMENT SPECIALIST Work Phone: [facility] 09-17-2024 08:39-0400 SaO2% (BldA) [Mass fraction] 98 % Crista Moomaw CERTIFIED HAND THERAPIST.MARKETING DEVELOPMENT SPECIALIST Work Phone: [facility] 09-17-2024 08:39-0400 Systolic blood pressure 112 mm[Hg] Crista Moomaw CERTIFIED HAND THERAPIST.MARKETING DEVELOPMENT SPECIALIST Work Phone: [facility] 08-11-2024 13:44-0400 Body mass index (BMI) [Ratio] 22.32 kg/m2 Gina Plotts CERTIFIED HAND THERAPIST.CNM Work Phone: [facility] 08-11-2024 13:44-0400 Body weight 57.15 kg Gina Plotts CERTIFIED HAND THERAPIST.CNM Work Phone: [facility] 08-11-2024 13:44-0400 Diastolic blood pressure 64 mm[Hg] Gina Plotts CERTIFIED HAND THERAPIST.CNM Work Phone: [facility] 08-11-2024 13:44-0400 Systolic blood pressure 98 mm[Hg] Gina Plotts CERTIFIED HAND THERAPIST.CNM Work Phone: [facility] 07-12-2024 15:56-0400 Body mass index (BMI) [Ratio] 21.43 kg/m2 Paulina Hamacrina CERTIFIED HAND THERAPIST.MARKETING DEVELOPMENT SPECIALIST Work Phone: [facility] 07-12-2024 15:56-0400 Body weight 54.88 kg Paulina Hamacrina CERTIFIED HAND THERAPIST.MARKETING DEVELOPMENT SPECIALIST Work Phone: [facility] 07-12-2024 15:56-0400 Diastolic blood pressure 62 mm[Hg] Paulina Haury CERTIFIED HAND THERAPIST.MARKETING DEVELOPMENT SPECIALIST Work Phone: [facility] 07-12-2024 15:56-0400 Systolic blood pressure 100 mm[Hg] Paulina Chadwick CERTIFIED HAND THERAPIST.MARKETING DEVELOPMENT SPECIALIST Work Phone: [facility] 06-28-2024 08:36-0400 Body height 160 cm Gina Hinojosats CERTIFIED HAND THERAPIST.CNM Work Phone: [facility] 06-28-2024 08:36-0400 Body mass index (BMI) [Ratio] 21.19 kg/m2 Gina Plotts CERTIFIED HAND THERAPIST.CNM Work Phone: [facility] 06-28-2024 08:36-0400 Body weight 54.25 kg Gina Plotts CERTIFIED HAND THERAPIST.CNM Work Phone: [facility] 06-28-2024 08:36-0400 Diastolic blood pressure 68 mm[Hg] Gina Plotts CERTIFIED HAND THERAPIST.CNM Work Phone: [facility] 06-28-2024 08:36-0400 Systolic blood pressure 106 mm[Hg] Gina Plotts CERTIFIED HAND THERAPIST.CNM Work Phone: [facility] 04-05-2024 15:00-0500 Body mass index (BMI) [Ratio] 20.37 kg/m2 Diana Velazquez PA-C Work Phone: [facility] 04-05-2024 15:00-0500 Body temperature 98.1 [degF] Diana Velazquez PA-C Work Phone: [facility] 04-05-2024 15:00-0500 Body weight 52.16 kg Diana Velazquez PA-C Work Phone: [facility] 04-05-2024 15:00-0500 Heart rate 86 /min Diana Velazquez PA-C Work Phone: [facility] 04-05-2024 15:00-0500 Respiratory rate 18 /min Diana Velazquez PA-C Work Phone: [facility] 07-29-2023 08:45-0400 Body height 160 cm Paulina Chadwick CERTIFIED HAND THERAPIST.MARKETING DEVELOPMENT SPECIALIST Work Phone: [facility] 07-29-2023 08:45-0400 Body mass index (BMI) [Ratio] 21.97 kg/m2 Paulina Navarromacrina STARK.MARKETING DEVELOPMENT SPECIALIST Work Phone: [facility] [facility] 07-29-2023 08:45-0400 Body weight 56.25 kg Paulina Navarromacrina STARK.MARKETING DEVELOPMENT SPECIALIST Work Phone: [facility] 07-29-2023 08:45-0400 Diastolic blood pressure 64 mm[Hg] Paulina Navarromacrina STARK.MARKETING DEVELOPMENT SPECIALIST Work Phone: [facility] 07-29-2023 08:45-0400 Systolic blood pressure 102 mm[Hg] Paulina Navarromacrina STARK.MARKETING DEVELOPMENT SPECIALIST Work Phone: [facility] 06-18-2023 15:16-0400 Respiratory rate 16 /min [facility] 06-18-2023 11:54-0400 Body temperature 98.2 [degF] [facility] 06-18-2023 11:54-0400 Diastolic blood pressure 79 mm[Hg] [facility] 06-18-2023 11:54-0400 Heart rate 82 /min [facility] 06-18-2023 11:54-0400 SaO2% (BldA) [Mass fraction] 99 % [facility] 06-18-2023 11:54-0400 Systolic blood pressure 115 mm[Hg] [facility] 06-16-2023 19:30-0400 Body height 160.02 cm [facility] 06-16-2023 19:30-0400 Body mass index (BMI) [Percentile] Per age and sex 84.2 % [facility] 06-16-2023 19:30-0400 Body mass index (BMI) [Ratio] 26 kg/m2 [facility] 06-16-2023 19:30-0400 Body weight 66.67 kg [facility] 06-08-2023 11:16-0400 Body weight 65.77 kg Kari Mane MD Work Phone: [facility] 06-08-2023 11:16-0400 Diastolic blood pressure 68 mm[Hg] Kari Mane MD Work Phone: [facility] 06-08-2023 11:16-0400 Systolic blood pressure 112 mm[Hg] Kari Mane MD Work Phone: [facility] 06-01-2023 11:39-0400 Body weight 65.23 kg Kari Mane MD Work Phone: [facility] 06-01-2023 11:39-0400 Diastolic blood pressure 70 mm[Hg] Kari Mane MD Work Phone: [facility] 06-01-2023 11:39-0400 Systolic blood pressure 110 mm[Hg] Kari Mane MD Work Phone: [facility] 05-25-2023 13:31-0400 Body weight 64.95 kg Kari Mane MD Work Phone: [facility] 05-25-2023 13:31-0400 Diastolic blood pressure 68 mm[Hg] Kari Mane MD Work Phone: [facility] 05-25-2023 13:31-0400 Systolic blood pressure 98 mm[Hg] Kari Mane MD Work Phone: [facility] 05-18-2023 10:04-0400 Body weight 64.41 kg Gemma Reaves MD Work Phone: [facility] 05-18-2023 10:04-0400 Diastolic blood pressure 60 mm[Hg] Gemma Reaves MD Work Phone: [facility] 05-18-2023 10:04-0400 Systolic blood pressure 108 mm[Hg] Gemma Reaves MD Work Phone: [facility] 05-04-2023 09:49-0500 Body weight 63.32 kg Kari Mane MD Work Phone: [facility] 05-04-2023 09:49-0500 Diastolic blood pressure 74 mm[Hg] Kari Mane MD Work Phone: [facility] 05-04-2023 09:49-0500 Systolic blood pressure 120 mm[Hg] Kari Mane MD Work Phone: [facility] 04-20-2023 09:32-0500 Body weight 63.05 kg Gemma Reaves MD Work Phone: [facility] 04-20-2023 09:32-0500 Diastolic blood pressure 64 mm[Hg] Gemma Reaves MD Work Phone: [facility] 04-20-2023 09:32-0500 Systolic blood pressure 110 mm[Hg] Gemma Reaves MD Work Phone: [facility] 02-16-2023 14:40-0500 Body weight 58.06 kg Siomara Bancroft CERTIFIED HAND THERAPIST.MARKETING DEVELOPMENT SPECIALIST Work Phone: [facility] 02-16-2023 14:40-0500 Diastolic blood pressure 66 mm[Hg] Siomara Pool CERTIFIED HAND THERAPIST.MARKETING DEVELOPMENT SPECIALIST Work Phone: [facility] 02-16-2023 14:40-0500 Systolic blood pressure 98 mm[Hg] Siomara Bancroft CERTIFIED HAND THERAPIST.MARKETING DEVELOPMENT SPECIALIST Work Phone: [facility] 01-20-2023 14:41-0500 Body weight 55.79 kg Gemma Reaves MD Work Phone: [facility] 01-20-2023 14:41-0500 Diastolic blood pressure 72 mm[Hg] Gemma Reaves MD Work Phone: [facility] 01-20-2023 14:41-0500 Systolic blood pressure 106 mm[Hg] Gemma Reaves MD Work Phone: [facility] 12-22-2022 14:43-0400 Body weight 54.61 kg Kari Mane MD Work Phone: [facility] 12-22-2022 14:43-0400 Diastolic blood pressure 70 mm[Hg] Kari Mane MD Work Phone: [facility] 12-22-2022 14:43-0400 Systolic blood pressure 110 mm[Hg] Kari Mane MD Work Phone: [facility] 10-27-2021 08:51-0400 Body weight 52.8 kg Siomara Bancroft CERTIFIED HAND THERAPIST.MARKETING DEVELOPMENT SPECIALIST Work Phone: [facility] 10-27-2021 08:51-0400 Diastolic blood pressure 62 mm[Hg] Siomara Pool CERTIFIED HAND THERAPIST.MARKETING DEVELOPMENT SPECIALIST Work Phone: [facility] 10-27-2021 08:51-0400 Systolic blood pressure 82 mm[Hg] Siomara Bancroft CERTIFIED HAND THERAPIST.MARKETING DEVELOPMENT SPECIALIST Work Phone: [facility] 07-01-2021 12:51-0400 Body weight 51.53 kg Siomara Bancroft CERTIFIED HAND THERAPIST.MARKETING DEVELOPMENT SPECIALIST Work Phone: [facility] 07-01-2021 12:51-0400 Diastolic blood pressure 60 mm[Hg] Siomara Pool CERTIFIED HAND THERAPIST.MARKETING DEVELOPMENT SPECIALIST Work Phone: [facility] 07-01-2021 12:51-0400 Systolic blood pressure 100 mm[Hg] Siomara Pool CERTIFIED HAND THERAPIST.MARKETING DEVELOPMENT SPECIALIST Work Phone: [facility] Encounters Encounter Date Encounter Type Care Provider Facility Start: 10-10-2024 End: 10-10-2024 ambulatory No Primary Care Physician -[facility] Start: 10-10-2024 End: 10-10-[address] Gemma Reaves MD -[facility] Work Phone: Start: 10-06-2024 End: 10-06-2024 ambulatory Gina Kulkarni CERTIFIED HAND THERAPIST.CNM Work Phone: OB/Gynecology Comment on above: Breast pump Start: 10-06-2024 End: 10-06-2024 Telephone encounter Nurse Collection Clerk Joanne [place] Work Phone: Obstetrics/Gynecology Comment on above: PRAF Start: 10-05-2024 End: 10-05-2024 Patient encounter procedure Gina Kulkarni CERTIFIED HAND THERAPIST.CNM Work Phone: OB/Gynecology Comment on above: Supervision of high risk in third trimester (HCC) (Primary Dx); Late care (HCC); Screening for diabetes mellitus; Limited care in third trimester (HCC); 31 weeks gestation of (HCC) Start: 10-05-2024 End: 10-05-2024 ambulatory GINA KULKARNI Facility:[facility] Start: 09-17-2024 End: 09-17-2024 ambulatory CRISTA VASQUEZ Facility:[facility] Start: 09-17-2024 End: 09-17-2024 Patient encounter procedure Crista Vasquez CERTIFIED HAND THERAPIST.MARKETING DEVELOPMENT SPECIALIST Work Phone: [facility] [place] Comment on above: Diarrhea, unspecifie d type (Primary Dx) Start: 08-14-2024 End: 08-14-2024 Telephone encounter Nurse Collection Clerk Joanne [place] Work Phone: Obstetrics/Gynecology Comment on above: PRAF Start: 08-11-2024 End: 08-11-2024 Patient encounter procedure Gina Kulkarni CERTIFIED HAND THERAPIST.CNM Work Phone: OB/Gynecology Comment on above: Screening for diabet es mellitus (Primary Dx); 23 weeks gestation of (HCC); Late care (HCC); Encounter for supervision of high risk in second trimester, antepartum (HCC); Short interval between pregnancies affecting in second trimester, antepartum (HCC) Start: 08-11-2024 End: 08-11-2024 ambulatory [facility] Facility:[facility] Start: 08-09-2024 End: 08-10-2024 ambulatory Gina Kulkarni APRN.CNVignesh Work Phone: OB/Gynecology Comment on above: Reschedule appt Start: 07-12-2024 End: 07-12-2024 Patient encounter procedure Whi Tech 1 Collection Clerk [facility] Comment on above: Encounter for anatomic survey (HCC) (Primary Dx); 19 weeks gestation of (HCC) Encounter for superv ision of high risk in second trimester, antepartum (HCC) (Primary Dx); 19 weeks gestation of (HCC); Short interval between pregnancies affecting in second trimester, antepartum (HCC); Rubella non-immune status, antepartum (HCC) Start: 07-12-2024 End: 07-12-2024 ambulatory [facility] Facility:[facility] Start: 06-28-2024 End: 08-28-2024 Follow-up encounter Gina Kulkarni APRN.CNVignesh Work Phone: OB/Gynecology Start: 06-28-2024 End: 06-28-2024 Patient encounter procedure Gina Kulkarni CERTIFIED HAND THERAPISTBrandieCNM Work Phone: OB/Gynecology Comment on above: with fetus of unknown gestational age (HCC) (Primary Dx); 17 weeks gestation of (HCC); Short interval between pregnancies affecting in second trimester, antepartum (HCC); Late care (HCC); Encounter for supervision of high risk in second trimester, antepartum (HCC); Alcohol consumption during in first trimester (HCC) Start: 06-28-2024 End: 06-28-2024 ambulatory GINA KULKARNI Facility:[facility] Start: 04-14-2024 End: 04-14-2024 Patient encounter procedure Donald De La Torre PA-C Work Phone: Orthopaedics Start: 04-13-2024 End: 04-14-2024 ambulatory Diana Velazquez PA-C Work Phone: [facility] [place] Start: 04-13-2024 End: 04-14-2024 Follow-up encounter Diana Velazquez PA-C Work Phone: [facility] [place] Comment on above: Visit follow up Start: 04-07-2024 End: 04-07-2024 Telephone encounter Diana Velazquez PA-C Work Phone: [facility] [place] Comment on above: Results Start: 04-05-2024 End: 04-05-2024 Subsequent hospital visit by physician Timothy [facility] [place] Work Phone: Radiology Comment on above: Bony abnormality [Q7 9.9] Start: 04-05-2024 End: 04-05-2024 ambulatory DIANA VELAZQUEZ Facility:[facility] Start: 04-05-2024 End: 04-05-2024 Patient encounter procedure Diana Doughertyut PA-C Work Phone: [facility] [place] Comment on above: Bony abnormality (Pr imary Dx) Start: 03-16-2024 End: 03-16-2024 Telephone encounter Siomara Lanza APRN.MARKETING DEVELOPMENT SPECIALIST Work Phone: OB/Gynecology Comment on above: Results Start: 03-15-2024 End: 03-15-2024 ambulatory SIOMARA POOL Facility:[facility] Start: 03-13-2024 End: 03-14-2024 ambulatory Siomara Lanza CERTIFIED HAND THERAPIST.MARKETING DEVELOPMENT SPECIALIST Work Phone: OB/Gynecology Comment on above: Using the bathroom Start: 12-01-2023 End: 12-01-2023 ambulatory No Primary Care Physician Facility:[facility] Start: 09-29-2023 Telephone encounter Kari messina MD Work Phone: OB/Gynecology Comment on above: Breast Pump Start: 09-05-2023 ambulatory Kari Mooney Work Phone: OB/Gynecology Comment on above: medications to take for a cold when Start: 09-02-2023 Telephone encounter Kari messina MD Work Phone: OB/Gynecology Comment on above: Orders Start: 07-29-2023 End: 07-29-2023 Patient encounter procedure Paulina Chadwick CERTIFIED HAND THERAPIST.MARKETING DEVELOPMENT SPECIALIST Work Phone: OB/Gynecology Comment on above: care and examination (Primary Dx); Abnormal glucose affecting ; Constipation, unspecified constipation type; Sacral mass Start: 06-23-2023 End: 06-23-2023 ambulatory No Primary Care Physician Facility:[facility] Start: 06-17-2023 ambulatory Marium islas MD Work Phone: OB/Gynecology Comment on above: Ob Delivery Note Start: 06-16-2023 End: 06-18-2023 Evaluation and management of inpatient [facility] [place] Work Phone: Start: 06-08-2023 End: 06-08-2023 Patient encounter procedure Kari Mane MD Work Phone: OB/Gynecology Comment on above: Supervision of high risk in third trimester (Primary Dx); 39 weeks gestation of ; Abnormal glucose tolerance in ; Anemia complicating , third trimester Start: 06-01-2023 End: 06-01-2023 Patient encounter procedure Kari Mane MD Work Phone: OB/Gynecology Comment on above: 38 weeks gestation o f (Primary Dx); Supervision of high risk in third trimester Start: 05-31-2023 ambulatory Marah Burris [facility] [place] Comment on above: Population Health Na vigation Outreach (Ob/peds) Start: 05-25-2023 End: 05-25-2023 Patient encounter procedure Kari Mane MD Work Phone: OB/Gynecology Comment on above: Supervision of high risk in third trimester (Primary Dx); Abnormal glucose tolerance in ; 37 weeks gestation of Start: 05-18-2023 End: 05-18-2023 Patient encounter procedure Gemma Reaves MD Work Phone: OB/Gynecology Comment on above: 36 weeks gestation o f (Primary Dx); Supervision of high risk in third trimester Start: 05-04-2023 End: 05-04-2023 Patient encounter procedure Kari Mane MD Work Phone: OB/Gynecology Comment on above: 34 weeks gestation o f (Primary Dx); Abnormal glucose tolerance in ; Supervision of high risk in third trimester Start: 04-30-2023 ambulatory Kari Mooney Work Phone: OB/Gynecology Comment on above: Question Start: 04-20-2023 ambulatory Siomara Lanza CERTIFIED HAND THERAPIST.MARKETING DEVELOPMENT SPECIALIST Work Phone: OB/Gynecology Comment on above: Glucose Test Start: 04-20-2023 End: 04-20-2023 Patient encounter procedure Gemma Reaves MD Work Phone: OB/Gynecology Comment on above: Supervision of high risk in third trimester (Primary Dx); Abnormal glucose in , antepartum; 32 weeks gestation of Start: 04-10-2023 ambulatory Kari Mooney Work Phone: OB/Gynecology Comment on above: Glucose Test Start: 02-16-2023 End: 02-16-2023 Patient encounter procedure Siomara Bancroft CERTIFIED HAND THERAPIST.MARKETING DEVELOPMENT SPECIALIST Work Phone: OB/Gynecology Comment on above: Supervision of high risk in second trimester (Primary Dx); 23 weeks gestation of Encounter for follow -up ultrasound of anatomy (Primary Dx); 23 weeks gestation of Start: 01-26-2023 Telephone encounter Kari messina MD Work Phone: OB/Gynecology Comment on above: Lab Orders Start: 01-21-2023 Telephone encounter Kari messina MD Work Phone: OB/Gynecology Start: 01-20-2023 End: 01-20-2023 Patient encounter procedure Gemma Reaves MD Work Phone: OB/Gynecology Comment on above: 19 weeks gestation o f (Primary Dx); Encounter for supervision of normal first in second trimester Encounter for anatomic survey (Primary Dx); Encounter for care in first trimester of first ; 19 weeks gestation of Start: 12-22-2022 End: 12-22-2022 Patient encounter procedure Kari Mane MD Work Phone: OB/Gynecology Comment on above: 15 weeks gestation o f (Primary Dx); Encounter for care in first trimester of first Start: 12-08-2022 Telephone encounter Siomara Corriganc retirement CERTIFIED HAND THERAPIST.MARKETING DEVELOPMENT SPECIALIST Work Phone: OB/Gynecology Comment on above: Orders Start: 11-26-2022 Telephone encounter Siomara [facility] retirement CERTIFIED HAND THERAPIST.MARKETING DEVELOPMENT SPECIALIST Work Phone: OB/Gynecology Comment on above: Results Start: 10-27-2021 End: 10-27-2021 Patient encounter procedure Siomara Pool CERTIFIED HAND THERAPIST.MARKETING DEVELOPMENT SPECIALIST Work Phone: OB/Gynecology Comment on above: Encounter for survei llance of contraceptive pills (Primary Dx) Start: 10-24-2021 Refill Siomara Pool CERTIFIED HAND THERAPIST.MARKETING DEVELOPMENT SPECIALIST Work Phone: OB/Gynecology Comment on above: Refill Request Start: 07-01-2021 End: 07-01-2021 Patient encounter procedure Siomara Pool CERTIFIED HAND THERAPIST.MARKETING DEVELOPMENT SPECIALIST Work Phone: OB/Gynecology Comment on above: Encounter for survei llance of contraceptive pills (Primary Dx) Procedures Date Procedure Procedure Detail Performing Clinician Start: 10-10-2024 Urnls dip stick/tabl et reagent auto microscopy No Primary Care Physician Start: 10-05-2024 Urnls dip stick/tabl et rgnt non-auto w/o micrscp Gina Kulkarni CERTIFIED HAND THERAPIST.CNM Work Phone: Start: 07-12-2024 Us preg uterus after 1st trimest 03/08 gestation Gina Kulkarni CERTIFIED HAND THERAPIST.CNM Work Phone: Start: 06-28-2024 Antibody screen CURTIS KULKARNI Comment on above: Order Comment: Speci men Type: BLOOD SPECIMENOrdering Facility: [facility] Address: [address] [place] [address] Performed By: #### T SPN ####CC MAIN BLOOD BANKCLIA [id number] [place] [address] [place] Start: 06-28-2024 BACTERIAL VAGINOSIS NAAT Gina Kulkarni CERTIFIED HAND THERAPIST.CNM Work Phone: Start: 06-28-2024 Iadna chlamydia trac homatis amplified probe tq Gina Kulkarni CERTIFIED HAND THERAPIST.CNM Work Phone: Start: 06-28-2024 Us uterus l imited 1/> fetuses Gina Kulkarni CERTIFIED HAND THERAPIST.CNM Work Phone: Start: 06-08-2023 URINE OB DIP B/O Kari Mane MD Work Phone: Start: 06-01-2023 URINE OB DIP B/O Kari Mane MD Work Phone: Start: 05-25-2023 URINE OB DIP B/O Kari Mane MD Work Phone: Start: 05-18-2023 URINE OB DIP B/O Hao Reaves MD Work Phone: Start: 05-04-2023 URINE OB DIP B/O Kari Mane MD Work Phone: Start: 04-20-2023 URINE OB DIP B/O Hao Reaves MD Work Phone: Start: 02-16-2023 URINE OB DIP B/O Bita Manrique CERTIFIED HAND THERAPIST.CNM Work Phone: Start: 02-16-2023 Us preg uterus after 1st trimest 03/08 gestation Kari Mane MD Work Phone: Start: 01-20-2023 URINE OB DIP B/O Hao Reaves MD Work Phone: Start: 01-20-2023 Us preg uterus after 1st trimest 03/08 gestation Kari Mane MD Work Phone: Start: 12-22-2022 URINE OB DIP B/O Kari Mane MD Work Phone: Plan of Treatment Date Care Activity Detail Author Start: 11-06-2026 Urine microalbumin profile DTaP,Tdap,Td Vaccine (7 - Td or Tdap) [facility] Start: 06-28-2025 GC (Gonorrhea) Scree meng () GC (Gonorrhea) Screening () [facility] Start: 06-28-2025 Screening for Chlamy grace trachomatis Chlamydia Screening () [facility] Start: 11-06-2024 Influenza vaccination [facility] Start: 11-06-2024 RSV Vaccine (1 - Ris k 1-dose series) RSV Vaccine (1 - Risk 1-dose series) [facility] Start: 10-16-2024 End: 10-16-2024 Patient encounter procedure Maternal Medicine Comment on above: Growth OB Start: 10-10-2024 End: 10-10-2024 [facility] Start: 10-10-2024 Nonstress test [facility] Start: 10-10-2024 Obstetric monitoring [facility] Start: 10-10-2024 Vital signs measurements [facility] Start: 10-10-2024 Patient discharge [facility] Start: 10-10-2024 [facility] Start: 09-11-2024 End: 09-11-2024 Patient encounter procedure 09/11/2024 1:50 PM EDT Routine Office Visit OB/Gynecology [address] [place], [place] [id number] Marium Stevenson MD [address] [place] [address] Glucose/OB OB/Gynecology Comment on above: Glucose/OB Start: 09-11-2024 End: 09-11-2024 ambulatory 09/11/2024 1:30 PM EDT Results Only [place] [facility] [address] [place] [address] Glucose [place] [facility] Comment on above: Glucose Start: 08-11-2024 End: 11-10-2024 ANEMIA REFLEX PANEL ANEMIA REFLEX PANEL Lab Routine Screening for diabetes mellitus Encounter for supervision of high risk in second trimester, antepartum (HCC) Short interval between pregnancies affecting in second trimester, antepartum (HCC) Late care (HCC) Expected: 08/11/2024, Expires: 11/10/2024 [facility] Comment on above: Expected: 08/11/2024 , Expires: 11/10/2024 Start: 08-11-2024 End: 08-11-2025 GESTATIONAL GLUCOSE SCREEN, 1-HOUR, 50 GRAM, NON-FASTING GESTATIONAL GLUCOSE SCREEN, 1-HOUR, 50 GRAM, NON-FASTING Lab Routine Screening for diabetes mellitus Encounter for supervision of high risk in second trimester, antepartum (HCC) Short interval between pregnancies affecting in second trimester, antepartum (HCC) Late care (HCC) 23 weeks gestation of (HCC) Expected: 08/11/2024, Expires: 08/11/2025 [facility] Work Phone: Comment on above: Expected: 08/11/2024 , Expires: 08/11/2025 Start: 08-11-2024 End: 08-11-2024 Patient encounter procedure 08/11/2024 2:00 PM EDT Routine Office Visit OB/Gynecology [address] [place] [address] Gina Kulkarni APRN.[facility] [address] [place] [address] OB OB/Gynecology Comment on above: OB Start: 08-11-2024 End: 08-11-2025 SYPHILIS TREPONEMAL W/REFLEX SYPHILIS TREPONEMAL W/REFLEX Lab Routine Screening for diabetes mellitus Encounter for supervision of high risk in second trimester, antepartum (HCC) Short interval between pregnancies affecting in second trimester, antepartum (HCC) Late care (HCC) Expected: 08/11/2024, Expires: 08/11/2025 [facility] Comment on above: Expected: 08/11/2024 , Expires: 08/11/2025 Start: 08-10-2024 End: 08-10-2024 Patient encounter procedure 08/10/2024 10:30 AM EDT Routine Office Visit OB/Gynecology [address] [place] [address] Gina Kulkarni CERTIFIED HAND THERAPIST.CNM [address] [place] [address] Est New OB OB/Gynecology Comment on above: Est New OB Start: 07-28-2024 End: 07-28-2024 Patient encounter procedure 07/28/2024 8:15 AM EDT Office Visit OB/Gynecology [address] [place] [address] Paulina Chadwick CERTIFIED HAND THERAPIST.MARKETING DEVELOPMENT SPECIALIST [address] [place] [address] Annual OB/Gynecology Comment on above: Annual Start: 07-26-2024 End: 07-26-2024 Patient encounter procedure 07/26/2024 10:30 AM EDT Routine Office Visit OB/Gynecology [address] [place] [address] Radha Manrique CERTIFIED HAND THERAPIST.CNM [address] [place] [address] , OB/Gynecology Comment on above: , Start: 07-12-2024 End: 07-12-2024 Patient encounter procedure Maternal Medicine Comment on above: Anatomy ob Start: 06-28-2024 End: 09-27-2024 ANEMIA REFLEX PANEL [facility] Work Phone: Comment on above: Expected: 06/28/2024 , Expires: 09/27/2024 Start: 06-28-2024 End: 09-27-2024 Chromosome 21 trisomy [Presence] in Blood or Tissue by Cytogenetics [facility] Comment on above: Expected: 06/28/2024 , Expires: 09/27/2024 Start: 06-28-2024 End: 06-28-2025 OBSTETRIC ULTRASOUND WHI OBSTETRIC ULTRASOUND WHI Anc Imaging Routine with fetus of unknown gestational age (HCC) Expected: 06/28/2024, Expires: 06/28/2025 [facility] Comment on above: Expected: 06/28/2024 , Expires: 06/28/2025 Start: 03-15-2024 End: 03-15-2024 ambulatory 03/15/2024 12:00 PM EST Results Only [facility] [address] [place] [facility] [address] [facility] Start: 03-14-2024 End: 06-13-2024 Bacteria identified in Urine by Culture URINE CULTURE Microbiology Routine UTI symptoms Expected: 03/14/2024, Expires: 06/13/2024 [facility] Work Phone: Comment on above: Expected: 03/14/2024 , Expires: 06/13/2024 Start: 03-14-2024 End: 06-13-2024 Urinalysis complete panel - Urine URINALYSIS, WITH MICROSCOPIC Lab Routine UTI symptoms Expected: 03/14/2024, Expires: 06/13/2024 [facility] Comment on above: Expected: 03/14/2024 , Expires: 06/13/2024 Start: 11-25-2023 Chlamydia Screening (1824) Chlamydia Screening (18-24) [facility] Start: 11-25-2023 GC (Gonorrhea) Scree meng (18-24) GC (Gonorrhea) Screening (18-) [facility] Start: 11-25-2023 Screening for Chlamy grace trachomatis Chlamydia Screening () [facility] Start: 11-07-2023 Covid-19 Vaccine () Covid-19 Vaccine () [facility] Start: 11-07-2023 Influenza vaccination C [facility] Start: 09-27-2023 End: 12-27-2023 Hemoglobin A1c in Blood HEMOGLOBIN A1C Lab Routine Abnormal glucose affecting Expected: 09/27/2023, Expires: 12/27/2023 [facility] Work Phone: Comment on above: Expected: 09/27/2023 , Expires: 12/27/2023 Start: 06-18-2023 Patient discharge [facility] Start: 06-17-2023 Administration of medication [facility] Start: 06-17-2023 Application of ice collar, cap or bag [facility] Start: 06-17-2023 Catheterization of vein [facility] Start: 06-17-2023 Introduction of urin ivet catheter [facility] Start: 06-17-2023 Measuring intake and output [facility] Start: 06-17-2023 Notification of physician [facility] Start: 06-17-2023 Procedure discontinued [facility] Start: 06-17-2023 Provision of activit y privileges [facility] Start: 06-17-2023 Vital signs measurements [facility] Start: 06-17-2023 End: 06-17-2023 [facility] Start: 06-17-2023 Documentation procedure [facility] [facility] Start: 06-17-2023 Consultation [facility] Start: 06-16-2023 Admission procedure [facility] Start: 06-16-2023 Verification routine [facility] Start: 03-08-2023 Behavioral Health Screening Behavioral Health Screening [facility] Start: 03-08-2023 Depression Assessment Depression Ass essment [facility] Start: 02-16-2023 End: 05-18-2023 CBC W Auto Differential panel - Blood CBC + DIFF Lab Routine Supervision of high risk in second trimester 23 weeks gestation of Expected: 02/16/2023, Expires: 05/18/2023 [facility] Work Phone: Comment on above: Expected: 02/16/2023 , Expires: 05/18/2023 Start: 02-16-2023 End: 05-18-2023 GEST GLUC SCREEN, 1-HR, 50 GM, NON-FASTING GEST GLUC SCREEN, 1-HR, 50 GM, NON-FASTING Lab Routine Supervision of high risk in second trimester 23 weeks gestation of Expected: 02/16/2023, Expires: 05/18/2023 [facility] Work Phone: Comment on above: Expected: 02/16/2023 , Expires: 05/18/2023 Start: 02-16-2023 End: 05-18-2023 SYPHILIS TOTAL W/REFLEX SYPHILIS TOTAL W/REFLEX Lab Routine Supervision of high risk in second trimester 23 weeks gestation of Expected: 02/16/2023, Expires: 05/18/2023 [facility] Work Phone: Comment on above: Expected: 02/16/2023 , Expires: 05/18/2023 Start: 01-21-2023 End: 01-22-2024 OBSTETRIC ULTRASOUND WHI OBSTETRIC ULTRASOUND WHI Anc Imaging Routine Supervision of high risk in second trimester Expected: 01/21/2023, Expires: 01/22/2024 [facility] Work Phone: Comment on above: Expected: 01/21/2023 , Expires: 01/22/2024 Start: 12-22-2022 End: 12-23-2023 OBSTETRIC ULTRASOUND WHI OBSTETRIC ULTRASOUND WHI Anc Imaging Routine 15 weeks gestation of Encounter for care in first trimester of first Expected: 12/22/2022, Expires: 12/23/2023 [facility] Work Phone: Comment on above: Expected: 12/22/2022 , Expires: 12/23/2023 Start: 12-08-2022 End: 02-07-2023 SEQUENTIAL SCN FIRST TRIMESTER [facility] Work Phone: Comment on above: Expected: 12/08/2022 , Expires: 02/07/2023 Start: 12-08-2022 End: 02-07-2023 SEQUENTIAL SCN SECOND TRIM SEQUENTIAL SCN SECOND TRIM Lab Routine Nuchal translucency of fetus on ultrasound Expected: 12/08/2022, Expires: 02/07/2023 [facility] Work Phone: Comment on above: Expected: 12/08/2022 , Expires: 02/07/2023 Start: 11-06-2022 Covid-19 Vaccine ( season) Covid-19 Vaccine ( season) [facility] Start: 11-06-2022 Influenza vaccination Influenza Vacc ine (#1) [facility] Start: 03-08-2022 Depression Assessment Depression Ass essment [facility] Start: 2022 Anxiety Screening Anxiety Screening [facility] Start: 2022 Depression Screening Depression Scre ening [facility] Start: 2022 Hepatitis C Screening Hepatitis C Sc reening [facility] Start: 2022 HIV Screening HIV Screening [facility] Start: 11-06-2021 Influenza vaccination C [facility] Start: 2020 Meningococcal B Vacc ine (1 of 2 - Standard) Meningococcal B Vaccine (1 of 2 - Standard) [facility] Start: 2020 Meningococcal B Vacc ine: Consider Based On Risk (1 of 2 - Patient Seeks Protection) Meningococcal B Vaccine: Consider Based On Risk (1 of 2 - Patient Seeks Protection) [facility] Start: 2020 MENINGOCOCCAL CONJUG ATE (1 - 2-dose series) MENINGOCOCCAL CONJUGATE (1 - 2-dose series) [facility] Start: 2020 Meningococcal Conjug ate Vaccine (1 - 2-dose series) Meningococcal Conjugate Vaccine (1 - 2-dose series) [facility] Start: 2020 Meningococcal Conjug ate Vaccine (2 - 2-dose series) Meningococcal Conjugate Vaccine (2 - 2-dose series) [facility] Start: 2019 CHLAMYDIA SCREENING (<18) CHLA MYDIA SCREENING (<18) [facility] Start: 2019 GC (GONORRHEA) SCREE MENG (<18) GC (GONORRHEA) SCREENING (<18) [facility] Start: 2018 PEDS TO ADULT TRANSI TION ANNUAL ASSESSMENT PEDS TO ADULT TRANSITION ANNUAL ASSESSMENT [facility] Start: 05-06-2017 HPV Vaccine (2 - 2-d ose series) HPV Vaccine (2 - 2-dose series) [facility] Start: 2016 Adult depression screening assessment DEPRESSION SCREENING [facility] Start: 12-29-2016 PEDS TO ADULT TRANSI TION INITIAL DISCUSSION PEDS TO ADULT TRANSITION INITIAL DISCUSSION [facility] Start: 2015 HPV VACCINE (1 - 2-d ose series) HPV VACCINE (1 - 2-dose series) [facility] Start: 2015 Urine microalbumin profile [facility] Start: 2014 MENINGOCOCCAL B: Con public relations assistant based on risk (1 of 2 - Risk Bexsero 2-dose series) MENINGOCOCCAL B: Consider based on risk (1 of 2 - Risk Bexsero 2-dose series) [facility] Start: 2013 HPV Vaccine (1 - 2-d ose series) HPV Vaccine (1 - 2-dose series) [facility] Start: 2009 COVID-19 VACCINE (1) COVID-19 VACCIN E (1) [facility] Start: 01-23-2009 VARICELLA (2 of 2 - 2-dose childhood series) VARICELLA (2 of 2 - 2-dose childhood series) [facility] Start: 2004 COVID-19 VACCINE (#1) COVID-19 VACCI NE (#1) [facility] Bacteria identified in Urine by Culture BACTERIAL CULTURE, URINE Microbiology Routine with fetus of unknown gestational age (HCC) 06/28/2024 9:18 AM EDT [facility] Erythrocyte mean corpuscular volume determination [facility] Fibronectin. [Mass/volume] in Vaginal fluid [facility] Hematocrit [Volume Fraction] of Blood [facility] Hemoglobin [Mass/vol ume] in Blood [facility] Leukocytes [#/volume ] in Blood [facility] Mean corpuscular hemoglobin concentration determination [facility] Mean corpuscular hemoglobin determination [facility] Neutrophil count [facility] Neutrophil percent differential count [facility] End: 04-03-2025 OBSTETRIC ULTRASOUND WHI OBSTETRIC ULTRASOUND I Anc Imaging Routine Late care (HCC) Limited care in third trimester ([facility]) 31 weeks gestation of ([facility]) Supervision of high risk in third trimester ([facility]) Once per month for 5 Occurrences starting 10/05/2024 until 04/03/2025 [facility] Work Phone: Comment on above: Once per month for 5 Occurrences starting 10/05/2024 until 04/03/2025 Patient Education [facility] Work Phone: Patient referral [facility] Work Phone: Platelets [#/volume] in Blood [facility] Red blood cell count [facility] Red cell distributio n width determination [facility] ROUTINE, GR OUP B STREP PCR ROUTINE, GROUP B STREP PCR Microbiology Routine 36 weeks gestation of 05/18/2023 10:31 AM EDT [facility] Work Phone: Urine culture [facility] End: 05-14-2025 XR Lumbar spine 3 Views XR LUMBAR GENERAL 3V AP/LAT/L5-S1 Radiology Routine Bony abnormality 1 Occurrences starting 04/14/2024 until 05/14/2025 [facility] Work Phone: Comment on above: 1 Occurrences starti ng 04/14/2024 until 05/14/2025 XR Sacrum and Coccyx 3 Views XR SACRUM/COCCYX 3V AP/LAT Radiology Routine Bony abnormality 04/05/2024 3:58 PM EST [facility] Work Phone: [facility] Immunizations Immunization Date Immunization Notes Care Provider Aisha carpenter 11-06-2016 Human Papillomavirus 9-valent vaccine Whi [facility] 10-31-2008 diphtheria, tetanus toxoids and acellular pertussis vaccine Siomara Bancroft CERTIFIED HAND THERAPIST.MARKETING DEVELOPMENT SPECIALIST Work Phone: [facility] Work Phone: 10-31-2008 hepatitis A vaccine, unspecified formulation Siomara Bancroft CERTIFIED HAND THERAPIST.MARKETING DEVELOPMENT SPECIALIST Work Phone: [facility] Work Phone: 10-31-2008 measles, mumps and rubella virus vaccine Siomara Bancroft CERTIFIED HAND THERAPIST.MARKETING DEVELOPMENT SPECIALIST Work Phone: [facility] Work Phone: 10-31-2008 poliovirus vaccine, inactivated Siomara Bancroft CERTIFIED HAND THERAPIST.MARKETING DEVELOPMENT SPECIALIST Work Phone: [facility] Work Phone: 10-31-2008 varicella virus vaccine Red e Pool CERTIFIED HAND THERAPIST.[facility] Work Phone: [facility] Work Phone: 08-03-2007 hepatitis A vaccine, unspecified formulation Siomara Bancroft CERTIFIED HAND THERAPIST.[facility] Work Phone: [facility] Work Phone: 06-23-2005 diphtheria, tetanus toxoids and acellular pertussis vaccine Siomara Bancroft CERTIFIED HAND THERAPIST.[facility] Work Phone: [facility] Work Phone: 06-23-2005 haemophilus influenz ae type b vaccine, HbOC conjugate Siomara Bancroft CERTIFIED HAND THERAPIST.[facility] Work Phone: [facility] Work Phone: 06-23-2005 pneumococcal conjuga te vaccine, 7 valent Siomara Pool CERTIFIED HAND THERAPIST.[facility] Work Phone: [facility] Work Phone: 03-25-2005 hepatitis B vaccine, pediatric or pediatric/adolescent dosage Siomara Bancroft CERTIFIED HAND THERAPIST.[facility] Work Phone: [facility] Work Phone: 03-25-2005 varicella virus vaccine Red e Bancroft CERTIFIED HAND THERAPIST.[facility] Work Phone: [facility] Work Phone: 03-24-2005 measles, mumps and rubella virus vaccine Simoara Bancroft CERTIFIED HAND THERAPIST.MARKETING DEVELOPMENT SPECIALIST Work Phone: [facility] Work Phone: 2004 diphtheria, tetanus toxoids and acellular pertussis vaccine Siomara Pool CERTIFIED HAND THERAPIST.[facility] Work Phone: [facility] Work Phone: 2004 haemophilus influenz ae type b vaccine, HbOC conjugate Siomara Bancroft CERTIFIED HAND THERAPIST.[facility] Work Phone: [facility] Work Phone: 2004 pneumococcal conjuga te vaccine, 7 valent Siomara Bancroft CERTIFIED HAND THERAPIST.MARKETING DEVELOPMENT SPECIALIST Work Phone: [facility] Work Phone: 2004 poliovirus vaccine, inactivated Siomara Bancroft CERTIFIED HAND THERAPIST.MARKETING DEVELOPMENT SPECIALIST Work Phone: [facility] Work Phone: 2004 diphtheria, tetanus toxoids and acellular pertussis vaccine Siomara Bancroft CERTIFIED HAND THERAPIST.MARKETING DEVELOPMENT SPECIALIST Work Phone: [facility] Work Phone: 2004 haemophilus influenz ae type b vaccine, HbOC conjugate Siomara Pool CERTIFIED HAND THERAPIST.[facility] Work Phone: [facility] Work Phone: 2004 pneumococcal conjuga te vaccine, 7 valent Siomara Pool CERTIFIED HAND THERAPIST.[facility] Work Phone: [facility] Work Phone: 2004 poliovirus vaccine, inactivated Siomara Bancroft CERTIFIED HAND THERAPIST.[facility] Work Phone: [facility] Work Phone: 2004 diphtheria, tetanus toxoids and acellular pertussis vaccine Siomara Bancroft CERTIFIED HAND THERAPIST.MARKETING DEVELOPMENT SPECIALIST Work Phone: [facility] Work Phone: 2004 haemophilus influenz ae type b vaccine, HbOC conjugate Siomara Pool CERTIFIED HAND THERAPIST.MARKETING DEVELOPMENT SPECIALIST Work Phone: [facility] Work Phone: 2004 hepatitis B vaccine, pediatric or pediatric/adolescent dosage Siomara Bancroft CERTIFIED HAND THERAPIST.[facility] Work Phone: [facility] Work Phone: 2004 pneumococcal conjuga te vaccine, 7 valent Siomara Pool CERTIFIED HAND THERAPIST.MARKETING DEVELOPMENT SPECIALIST Work Phone: [facility] Work Phone: 2004 poliovirus vaccine, inactivated Siomara Pool CERTIFIED HAND THERAPIST.MARKETING DEVELOPMENT SPECIALIST Work Phone: [facility] Work Phone: 2004 hepatitis B vaccine, pediatric or pediatric/adolescent dosage Siomara Corrigansharda STARK.MARKETING DEVELOPMENT SPECIALIST Work Phone: [facility] Work Phone: Payers Date Payer Category Payer Self-pay [id number] 2022 Unknown [id number] 2019 Medicaid [facility] MEDICAID [facility] PLAN MEDICAID [id number] 2019-Present [phone] [address] [place] [address] Medicaid [id number] 2019 Medicaid [id number] Unknown [id number] Unknown [id number] Unknown [id number] Social History Date Type Detail Facility Start: 05-08-2019 End: 06-16-2023 Tobacco smoking status NHIS Never smoked tobacco [facility] Start: 05-08-2019 End: 10-27-2021 Tobacco use and exposure Smokeless tobacco non-user [facility] Start: 07-01-2021 End: 08-11-2024 Alcohol intake Lifetime non-drinker (finding) [facility] Start: 05-06-2021 History SDOH Alcohol Frequency 1 [facility] Start: 2004 Sex Assigned At Not on file C [facility] Start: 06-21-2021 End: 10-27-2021 Exposure to SARS-CoV-2 (event) Not sure [facility] Work Phone: Start: 11-24-2022 End: 04-05-2024 History of Social function [facility] Start: 11-24-2022 End: 04-05-2024 Tobacco use panel [facility] National Score (1-10 0), lower number is lower risk 89 [facility] Start: 09-18-2022 [facility] Start: 06-16-2023 Tobacco smoking stat us OKIS Unknown if ever smoked [facility] Start: 2004 Sex Assigned At Female W [facility] Start: 06-26-2024 Education 13 [facility] Start: 06-26-2024 Gender identity Identifies as female gender (finding) [facility] Start: 06-26-2024 Sexual orientation Heterosexual (juanpablo teresa) [facility] Medical Equipment Procedure Code Equipment Code Equipment Origin al Text Equipment Identifier Dates Use as directed to check glucose levels up to seven times daily. [id number], [id number] Start: 04-13-2023 End: 07-29-2023 Comment on above: Use as directed to c heck glucose levels up to seven times daily. Goals Date Patient Goal Desired Activity /State Personal health goal Personal health goal Clinical Notes 07-01-2021 to 10-06-2024 Telephone Encounter - Alf Trevino RN - 10/06/2024 12:18 PM EDTTelephone Encounter - Alf Trevino RN - 10/06/2024 12:18 PM EDTPatient InstructionsMoCrista villagomez, CERTIFIED HAND THERAPIST.MARKETING DEVELOPMENT SPECIALIST - 09/17/2024 8:50 AM EDT Note Date & Type Note Facility 10-06-2024 Telephone encount er Note 3rd risk assessment form submitted 10/06/24 Alf Trevino RN [facility] 10-06-2024 Miscellaneous Notes Formattin g of this note might be different from the original. 3rd risk assessment form submitted 10/06/24 Alf Trevino RN documented in this encounter [facility] 10-05-2024 Progress note Formatting of t his note might be different from the original. S: Jimmy Lema is a 19 year old female who presents at 31 weeks gestation. Has not been seen in office in 8 weeks. Stated was sick and then couldn't get appointment. Discussed importance of keeping regular appointments. Positive movements. Denies any cramps or contractions. Did NOT completed 1 hour GCT today- declining screening due to last getting sick with drink. Discussed The [facility] Test and referral given for purchase. Patient would like to take blood sugars at home for the next 2 weeks. Advised if any levels are elevated- will have GDM diagnosis. Baby will be tested every 4 hours after delivery. O: See flow sheet Gen: No apparent distress Abd: Gravid, nontender S=D ASSESSMENT/PLAN: 1. Supervision of high risk in third trimester 2. Late care 3. Screening for diabetes mellitus 4. Limited care in third trimester 5. 31 weeks gestation of - Thinking about [facility] Test for GCT - Paper log given and patient to test blood sugars 4x day and record - will review next visit - CBC and RPR today - Continue vitamin daily - Rh positive - TDAP Declines - LARC form reviewed and signed. Patient declines - Depression screen negative - Opioid screen negative - plan form discussed and given to patient. Patient desires epidural and - PTL precautions and kick counts reviewed - RTO- 2 weeks or sooner if needed - Growth US ordered- due to limited care and refusal of GCT Gina Kulkarni APRN.CNM [facility] 10-05-2024 Miscellaneous Notes Formattin g of this note might be different from the original. S: Jimmy Lema is a 19 year old female who presents at 31 weeks gestation. Has not been seen in office in 8 weeks. Stated was sick and then couldn't get appointment. Discussed importance of keeping regular appointments. Positive movements. Denies any cramps or contractions. Did NOT completed 1 hour GCT today- declining screening due to last getting sick with drink. Discussed The Fresh Test and referral given for purchase. Patient would like to take blood sugars at home for the next 2 weeks. Advised if any levels are elevated- will have GDM diagnosis. Baby will be tested every 4 hours after delivery. O: See flow sheet Gen: No apparent distress Abd: Gravid, nontender S=D ASSESSMENT/PLAN: 1. Supervision of high risk in third trimester 2. Late care 3. Screening for diabetes mellitus 4. Limited care in third trimester 5. 31 weeks gestation of - Thinking about The Fresh Test for GCT - Paper log given and patient to test blood sugars 4x day and record - will review next visit - CBC and RPR today - Continue vitamin daily - Rh positive - TDAP Declines - LARC form reviewed and signed. Patient declines - Depression screen negative - Opioid screen negative - plan form discussed and given to patient. Patient desires epidural and - PTL precautions and kick counts reviewed - RTO- 2 weeks or sooner if needed - Growth US ordered- due to limited care and refusal of GCT Gina Kulkarni APRN.CNM documented in this encounter [facility] 10-05-2024 Instructions Margarita Gibbs MA - 10/05/2024 9:50 AM EDT SEQUENTIAL SCREENINGS The [facility] offers sequential screenings for women who are interested in screenings for chromosomal abnormalities and certain defects during a . The sequential screen combines ultrasound and blood tests to determine the risk of chromosomal abnormalities, including Down's Syndrome (Trisomy 21) and Trisomy 18, as well as open neural tube defects including spina bifida. Ultrasound examination is performed between 11 weeks and 13 weeks gestational age. Blood tests are drawn after the ultrasound and again later in the between 15 and 21 weeks gestational age. Please let your physician know if you are interested in this testing. It will require an appointment with our imaging technician. This is not an ultrasound performed by a physician in our office during a routine visit. SIGNS AND SYMPTOMS OF LABOR 1. Contractions every 10 minutes or more often 2. Clear, pink, or brownish fluid (water) leaking from vagina 3. Feeling that baby is pushing down, pressure 4. Low, dull backache 5. Cramps that feel like a period 6. Cramps with or without diarrhea If you notice any of the above symptoms, contact our office at [phone] and ask to speak with a nurse. After hours, you can call doctors registry at [phone] OR call [facility] at [phone] and ask to have the doctor manager compensation paged. If you consider this an emergency, dial 2-0-8 or go to your nearest emergency department. NEED HELP? Are you dealing with a violent or abusive relationship? Are you a victim of rape or sexual assult? Call [facility] ([place]) 24 hour Crisis Hotline: 971.796.4396 or 925-463-2575. MANUAL Your Guide to a Healthy manual is now on-line. Visit [email or web address] to download your free copy documented in this encounter [facility] 09-17-2024 Note HNO ID: [id number] Author: CRISTA VASQUEZ APRN.MARKETING DEVELOPMENT SPECIALIST Service: ? Author Type: Nurse Practitioner Type: Progress Notes Filed: 09/17/2024 08:54 Note Text: This note was created using [employer]. Subjective Jimmy Lema is a 19 year old female. HPI Patient presents today complaining of about 1 week of diarrhea. She is also 28 weeks . She states that she has had 4 episodes of diarrhea today but typically it is much less than that. She denies any recent exposures such as camping. Denies any abdominal pain other than some mild cramping with diarrhea. Denies any vaginal bleeding or discharge. Denies any recent fever. States she is still urinating greater than 4 times per day. Review of Systems As above Objective BP 112/62 Pulse 94 Temp 36.1 ?C (96.9 ?F) Resp 18 Wt 56.6 kg (124 lb 12.5 oz) LMP 02/29/2024 (Approximate) SpO2 98% BMI 22.10 kg/m? Physical Exam Vitals and nursing note reviewed. Constitutional: General: She is not in acute distress. Appearance: Normal appearance. She is not ill-appearing. HENT: Head: Normocephalic. Mouth/Throat: Mouth: Mucous membranes are moist. Eyes: Conjunctiva/sclera: Conjunctivae normal. Cardiovascular: Rate and Rhythm: Normal rate and regular rhythm. Pulmonary: Effort: Pulmonary effort is normal. Breath sounds: Normal breath sounds. Abdominal: Palpations: Abdomen is soft. Tenderness: There is no abdominal tenderness. Musculoskeletal: General: Normal range of motion. Cervical back: Normal range of motion. Skin: General: Skin is warm and dry. Neurological: General: No focal deficit present. Mental Status: She is alert. Psychiatric: Mood and Affect: Mood normal. Behavior: Behavior normal. Assessment and Plan ASSESSMENT/PLAN: 1. Diarrhea, unspecified type - ICD9: 787.91, ICD10: R19.7 Discussed with patient that symptoms are most likely viral in origin. She does deny any concerning exposures such as camping. We did discuss stool testing which she prefers to defer if symptoms have not improved. Strongly encouraged her to get plenty of fluids including high electrolyte fluids such as Gatorade. If symptoms have not improved within the week she will return for reevaluation. Crista Vasquez APRN.[facility] 09-17-2024 History of Presen t illness Narrative This note was created using [employer]. Subjective Jimmy Lema is a 19 year old female. HPI Patient presents today complaining of about 1 week of diarrhea. She is also 28 weeks . She states that she has had 4 episodes of diarrhea today but typically it is much less than that. She denies any recent exposures such as camping. Denies any abdominal pain other than some mild cramping with diarrhea. Denies any vaginal bleeding or discharge. Denies any recent fever. States she is still urinating greater than 4 times per day. Review of Systems As above Objective BP 112/62 Pulse 94 Temp 36.1 C (96.9 F) Resp 18 Wt 56.6 kg (124 lb 12.5 oz) LMP 02/29/2024 (Approximate) SpO2 98% BMI 22.10 kg/m Physical Exam Vitals and nursing note reviewed. Constitutional: General: She is not in acute distress. Appearance: Normal appearance. She is not ill-appearing. HENT: Head: Normocephalic. Mouth/Throat: Mouth: Mucous membranes are moist. Eyes: Conjunctiva/sclera: Conjunctivae normal. Cardiovascular: Rate and Rhythm: Normal rate and regular rhythm. Pulmonary: Effort: Pulmonary effort is normal. Breath sounds: Normal breath sounds. Abdominal: Palpations: Abdomen is soft. Tenderness: There is no abdominal tenderness. Musculoskeletal: General: Normal range of motion. Cervical back: Normal range of motion. Skin: General: Skin is warm and dry. Neurological: General: No focal deficit present. Mental Status: She is alert. Psychiatric: Mood and Affect: Mood normal. Behavior: Behavior normal. Assessment and Plan ASSESSMENT/PLAN: 1. Diarrhea, unspecified type - ICD9: 787.91, ICD10: R19.7 Discussed with patient that symptoms are most likely viral in origin. She does deny any concerning exposures such as camping. We did discuss stool testing which she prefers to defer if symptoms have not improved. Strongly encouraged her to get plenty of fluids including high electrolyte fluids such as Gatorade. If symptoms have not improved within the week she will return for reevaluation. Crista Vasquez APRN.MARKETING DEVELOPMENT SPECIALIST documented in this encounter [facility] 08-14-2024 Telephone encount er Note 2nd risk assessment form submitted 08/14/24 Alf Trevino RN [facility] 08-14-2024 Miscellaneous Notes Formattin g of this note might be different from the original. 2nd risk assessment form submitted 08/14/24 Alf Trevino RN documented in this encounter [facility] 08-11-2024 Progress note Formatting of t his note might be different from the original. S: Jimmy Lema is a 19 year old female who presents at 23 weeks gestation for a routine visit. C/O head congestion and feeling sick. Reviewed appropriate medications in . Positive movements. Anatomy US last visit. Having a boy! Denies headache, visual changes, chest pain, shortness of breath, vaginal bleeding, leakage of fluid, or dysuria. O: See flow sheet Gen: No apparent distress Abd: Gravid, nontender ASSESSMENT/PLAN: 1. Screening for diabetes mellitus - ICD9: V77.1, ICD10: Z13.1 (primary diagnosis)jovita 3. Late care 4. Encounter for supervision of high risk in second trimester, antepartum 5. Short interval between pregnancies affecting in second trimester - Patient initially declining GCT test but discussed The Fresh Test and patient will purchase and complete - Zyrtec 4 mg Po daily for congestion - Continue ASA/ vitamin daily - RTO 4 weeks or sooner if needed Gina Kulkarni APRN.CNM [facility] 08-11-2024 Miscellaneous Notes Formattin g of this note might be different from the original. S: Jimmy Lema is a 19 year old female who presents at 23 weeks gestation for a routine visit. C/O head congestion and feeling sick. Reviewed appropriate medications in . Positive movements. Anatomy US last visit. Having a boy! Denies headache, visual changes, chest pain, shortness of breath, vaginal bleeding, leakage of fluid, or dysuria. O: See flow sheet Gen: No apparent distress Abd: Gravid, nontender ASSESSMENT/PLAN: 1. Screening for diabetes mellitus - ICD9: V77.1, ICD10: Z13.1 (primary diagnosis)jovita 3. Late care 4. Encounter for supervision of high risk in second trimester, antepartum 5. Short interval between pregnancies affecting in second trimester - Patient initially declining GCT test but discussed The Fresh Test and patient will purchase and complete - Zyrtec 4 mg Po daily for congestion - Continue ASA/ vitamin daily - RTO 4 weeks or sooner if needed Gina Kulkarni APRN.CNM documented in this encounter [facility] 08-11-2024 Instructions Gina Kulkarni APRN.CNM - 08/11/2024 1:42 PM EDT SEQUENTIAL SCREENINGS The [facility] offers sequential screenings for women who are interested in screenings for chromosomal abnormalities and certain defects during a . The sequential screen combines ultrasound and blood tests to determine the risk of chromosomal abnormalities, including Down's Syndrome (Trisomy 21) and Trisomy 18, as well as open neural tube defects including spina bifida. Ultrasound examination is performed between 11 weeks and 13 weeks gestational age. Blood tests are drawn after the ultrasound and again later in the between 15 and 21 weeks gestational age. Please let your physician know if you are interested in this testing. It will require an appointment with our imaging technician. This is not an ultrasound performed by a physician in our office during a routine visit. The Fresh Test Purchase 50 gm pouch at [facility] outpatient pharmacy Bring with 10 oz water to lab on the day of your test. SIGNS AND SYMPTOMS OF LABOR 1. Contractions every 10 minutes or more often 2. Clear, pink, or brownish fluid (water) leaking from vagina 3. Feeling that baby is pushing down, pressure 4. Low, dull backache 5. Cramps that feel like a period 6. Cramps with or without diarrhea If you notice any of the above symptoms, contact our office at [phone] and ask to speak with a nurse. After hours, you can call doctors registry at [phone] OR call [facility] at [phone] and ask to have the doctor manager compensation paged. If you consider this an emergency, dial 2-9-0 or go to your nearest emergency department. NEED HELP? Are you dealing with a violent or abusive relationship? Are you a victim of rape or sexual assult? Call [facility] ([place]) 24 hour Crisis Hotline: 386.929.8039 or 794-914-6635. MANUAL Your Guide to a Healthy manual is now on-line. Visit [email or web address] to download your free copy documented in this encounter [facility] 07-12-2024 Instructions Kisha Da Silva MA - 07/12/2024 3:54 PM EDT SEQUENTIAL SCREENINGS The [facility] offers sequential screenings for women who are interested in screenings for chromosomal abnormalities and certain defects during a . The sequential screen combines ultrasound and blood tests to determine the risk of chromosomal abnormalities, including Down's Syndrome (Trisomy 21) and Trisomy 18, as well as open neural tube defects including spina bifida. Ultrasound examination is performed between 11 weeks and 13 weeks gestational age. Blood tests are drawn after the ultrasound and again later in the between 15 and 21 weeks gestational age. Please let your physician know if you are interested in this testing. It will require an appointment with our imaging technician. This is not an ultrasound performed by a physician in our office during a routine visit. SIGNS AND SYMPTOMS OF LABOR 1. Contractions every 10 minutes or more often 2. Clear, pink, or brownish fluid (water) leaking from vagina 3. Feeling that baby is pushing down, pressure 4. Low, dull backache 5. Cramps that feel like a period 6. Cramps with or without diarrhea If you notice any of the above symptoms, contact our office at [phone] and ask to speak with a nurse. After hours, you can call doctors registry at [phone] OR call [facility] at [phone] and ask to have the doctor manager compensation paged. If you consider this an emergency, dial 9-1- or go to your nearest emergency department. NEED HELP? Are you dealing with a violent or abusive relationship? Are you a victim of rape or sexual assult? Call [facility] ([place]) 24 hour Crisis Hotline: 552.834.2100 or 208-649-9961. MANUAL Your Guide to a Healthy manual is now on-line. Visit [email or web address] to download your free copy documented in this encounter [facility] 07-12-2024 Note HNO ID: [id number] Author: PAULINA CHADWICK APRN.MARKETING DEVELOPMENT SPECIALIST Service: ? Author Type: Nurse Practitioner Type: Progress Notes Filed: 07/12/2024 16:22 Note Text: EH - S: Jimmy is a 19 year old female who presents at 19w1d for a routine visit. Feeling movement. Denies headache, visual changes, chest pain, shortness of breath, vaginal bleeding, leakage of fluid, or dysuria. Feeling well, no complaints. O: See flow sheet Gen: No apparent distress Abd: Gravid, nontender ASSESSMENT/PLAN: 1. Encounter for supervision of high risk in second trimester, antepartum ([facility]) - ICD9: V23.9, ICD10: O09.92 (primary diagnosis) - Continue LDA and PNV 2. 19 weeks gestation of ([facility]) - ICD9: V22.2, ICD10: Z3A.19 - Anatomy ultrasound today, report pending 3. Short interval between pregnancies affecting in second trimester, antepartum ([facility]) - ICD9: V23.89, ICD10: O09.892 - 06/2023 4. Rubella non-immune status, antepartum ([facility]) - ICD9: 646.83, V15.83, ICD10: O09.899, Z28.39 - Reviewed - Recommend MMR PTL precautions reviewed. RTO in 4 weeks or sooner as needed. Paulina Chadwick APRN.[facility] 07-12-2024 History of Presen t illness Narrative EH - S: Jimmy is a 19 year old female who presents at 19w1d for a routine visit. Feeling movement. Denies headache, visual changes, chest pain, shortness of breath, vaginal bleeding, leakage of fluid, or dysuria. Feeling well, no complaints. O: See flow sheet Gen: No apparent distress Abd: Gravid, nontender ASSESSMENT/PLAN: 1. Encounter for supervision of high risk in second trimester, antepartum ([facility]) - ICD9: V23.9, ICD10: O09.92 (primary diagnosis) - Continue LDA and PNV 2. 19 weeks gestation of ([facility]) - ICD9: V22.2, ICD10: Z3A.19 - Anatomy ultrasound today, report pending 3. Short interval between pregnancies affecting in second trimester, antepartum ([facility]) - ICD9: V23.89, ICD10: O09.892 - 06/2023 4. Rubella non-immune status, antepartum ([facility]) - ICD9: 646.83, V15.83, ICD10: O09.899, Z28.39 - Reviewed - Recommend MMR PTL precautions reviewed. RTO in 4 weeks or sooner as needed. Paulina Chadwick APRN.CNP documented in this encounter [facility] 06-28-2024 Progress note Formatting of t his note might be different from the original. Patient is at 17 weeks gestation here for NOB appointment. on 06/17/23. Patient reports she did not know she was until a couple of weeks ago when she started feeling movements. Gina Kulkarni APRN.CNM [facility] 06-28-2024 Miscellaneous Notes Formattin g of this note might be different from the original. Patient is at 17 weeks gestation here for NOB appointment. on 06/17/23. Patient reports she did not know she was until a couple of weeks ago when she started feeling movements. Gina Kulkarni APRN.CNM documented in this encounter [facility] 06-26-2024 Note HNO ID: [id number] Author: GINA KULKARNI APRN.CNM Service: ? Author Type: Spray Painter Type: Progress Notes Filed: 06/28/2024 09:25 Note Text: Electronic Instrument Trades Worker offered: Patient declines. INITIAL OB ASSESSMENT HPI: Jimmy is a 19 year old White Female here to establish Obstetrical Care. Patient's last menstrual period was 02/29/2024. from OB Dating Form. was unplanned but accepted Complaints: No OB History Gravida2 Para1 Term1 Preterm0 AB0 Living1 SAB0 IAB0 Ectopic0 Multiple0 Live Births1 Previous history: Prior : never History of 4th degree laceration: No History of shoulder dystocia: No History of Hypertensive disorders including pre-eclampsia or gestational hypertension: No History of gestational diabetes: No Patient's Risk Screening for delivery: Have you had a prior garza between 20w and 36w6d? No How many pregnancies have you had before? 1 Did you have a previous baby with a GBS Infection? No Please select all that apply for any prior : N/A MEDICAL/PSYCHOSOCIAL HISTORY: History of hemorrhage or bleeding concerns: No Thyroid Disease: No History of chronic hypertension: No History of pre-existing diabetes: No No results found for: ABORHD BMI 21.19 kg/(m2) Last Pap: History of abnormal pap: No Prior treatment for cervical dysplasia: none. Last HPV: History of STDs: N/A Partner History of STDs: None Did you have a partner with Herpes? No Tobacco use: No E-Cigarette/Vaping Use: No Caffeine use: No Drug use: No Alcohol use: No Multivitamin with Folic acid: Yes Would refuse blood transfusion if medically necessary: No Social Needs: How often does this describe you? I don't have enough money to pay my bills: Never Within the past 12 months, have you worried that your food would run out before you had money to buy more? Never In the past 12 months, has lack of reliable transportation kept you from going to medical appointments or work, or from getting things needed for daily living? Never In the past 12 months, have you had any concerns about having a place to live, or about the condition or quality of your housing? Never Would you like more information on any of the following (please check all that apply)? Not interested Social History: Do you have any history of depression, anxiety, PTSD, or other mood problems? No Do you have a history of abuse or trauma that may impact your experience? No Are you currently employed? Yes Depression/Anxiety Screening: denies symptoms of depression. OB Depression and Anxiety Screening- This Encounter None Genetic Screening: Partner present: No Patient verbalized knowledge of partner family health history: Yes Do you or your partner have any personal or family history of defects not previously discussed: No Do you have history of a complicated by anomaly, genetic condition, or demise: No Preeclampsia Risk Screening: Screening for prevention of preeclampsia: High risk factors: None Moderate risk ractors: None OB Risk Screening: Completed, no positive findings documented. Marital Status:Single Partner: Name: Julio César Age: 21 Occupation: Sales/[employer] Gender: Male PAST MEDICAL HISTORY Diagnosis Date NEGATIVE MEDICAL HISTORY PAST SURGICAL HISTORY Procedure Laterality Date NONE Current Outpatient Medications Medication Sig Dispense Refill PAIN RELIEF ES, ACETAMINOPHEN, 500 mg tablet TAKE 2 TABLETS BY MOUTH EVERY 6 HOURS NEEDED FOR PAIN OR FEVER PNV no.95/ferrous fum/folic ac ( ORAL) Take by mouth. ibuprofen (MOTRIN) 600 mg tablet Take 600 mg by mouth every 6 hours as needed. (Patient not taking: Reported on 06/26/2024) Norethindrone, Contraceptive, 0.35 mg tablet Take 1 tablet by mouth once daily. (Patient not taking: Reported on 04/05/2024) 84 tablet 3 ferrous sulfate 325 mg (65 mg iron) tablet Take 1 tablet by mouth once daily. (Patient not taking: Reported on 07/29/2023) 30 tablet 4 No current facility-administered medications for this visit. Allergies As of Date: 06/28/2024 (No Known Allergies) Fully Assessed 06/26/2024 Does patient have penicillin allergy: No REVIEW OF SYSTEMS: GENERAL: Negative for: Fever or Chills and Positive for: Fatigue HEENT: Negative for: Headache, Impaired Vision, Ringing in Ears, Nosebleeds NECK: Negative for: Swelling, Pain, Stiffness RESPIRATORY: Negative for: Cough, Shortness of breath, Wheezing GASTROINTESTINAL: Negative for: Heartburn, Constipation, Diarrhea, Blood in stool, Vomiting and Positive for: Nausea and Vomiting MUSCULOSKELETAL: Negative for: Muscle or joint pain, stiffness, Joint swelling NEUROLOGIC/PSYCHIATRIC: Negative for: Weakness, Paralysis, Numbness, Tingling, Tremor, Anxiety, Memory loss Reports PPD- situational due to family and brother SKIN: Negative for: Rash, Itching JOE (more content not included)... [facility] 06-26-2024 History of Presen t illness Narrative Electronic Instrument Trades Worker offered: Patient declines. INITIAL OB ASSESSMENT HPI: Jimmy is a 19 year old White Female here to establish Obstetrical Care. Patient's last menstrual period was 02/29/2024. from OB Dating Form. was unplanned but accepted Complaints: No OB History Gravida2 Para1 Term1 Preterm0 AB0 Living1 SAB0 IAB0 Ectopic0 Multiple0 Live Births1 Previous history: Prior : never History of 4th degree laceration: No History of shoulder dystocia: No History of Hypertensive disorders including pre-eclampsia or gestational hypertension: No History of gestational diabetes: No Patient's Risk Screening for delivery: Have you had a prior garza between 20w and 36w6d? No How many pregnancies have you had before? 1 Did you have a previous baby with a GBS Infection? No Please select all that apply for any prior : N/A MEDICAL/PSYCHOSOCIAL HISTORY: History of hemorrhage or bleeding concerns: No Thyroid Disease: No History of chronic hypertension: No History of pre-existing diabetes: No No results found for: ABORHD BMI 21.19 kg/(m^2) Last Pap: History of abnormal pap: No Prior treatment for cervical dysplasia: none. Last HPV: History of STDs: N/A Partner History of STDs: None Did you have a partner with Herpes? No Tobacco use: No E-Cigarette/Vaping Use: No Caffeine use: No Drug use: No Alcohol use: No Multivitamin with Folic acid: Yes Would refuse blood transfusion if medically necessary: No Social Needs: How often does this describe you? I don't have enough money to pay my bills: Never Within the past 12 months, have you worried that your food would run out before you had money to buy more? Never In the past 12 months, has lack of reliable transportation kept you from going to medical appointments or work, or from getting things needed for daily living? Never In the past 12 months, have you had any concerns about having a place to live, or about the condition or quality of your housing? Never Would you like more information on any of the following (please check all that apply)? Not interested Social History: Do you have any history of depression, anxiety, PTSD, or other mood problems? No Do you have a history of abuse or trauma that may impact your experience? No Are you currently employed? Yes Depression/Anxiety Screening: denies symptoms of depression. OB Depression and Anxiety Screening- This Encounter None Genetic Screening: Partner present: No Patient verbalized knowledge of partner family health history: Yes Do you or your partner have any personal or family history of defects not previously discussed: No Do you have history of a complicated by anomaly, genetic condition, or demise: No Preeclampsia Risk Screening: Screening for prevention of preeclampsia: High risk factors: None Moderate risk ractors: None OB Risk Screening: Completed, no positive findings documented. Marital Status:Single Partner: Name: Julio César Age: 21 Occupation: Sales/[employer] Gender: Male PAST MEDICAL HISTORY Diagnosis Date NEGATIVE MEDICAL HISTORY PAST SURGICAL HISTORY Procedure Laterality Date NONE Current Outpatient Medications Medication Sig Dispense Refill PAIN RELIEF ES, ACETAMINOPHEN, 500 mg tablet TAKE 2 TABLETS BY MOUTH EVERY 6 HOURS NEEDED FOR PAIN OR FEVER PNV no.95/ferrous fum/folic ac ( ORAL) Take by mouth. ibuprofen (MOTRIN) 600 mg tablet Take 600 mg by mouth every 6 hours as needed. (Patient not taking: Reported on 06/26/2024) Norethindrone, Contraceptive, 0.35 mg tablet Take 1 tablet by mouth once daily. (Patient not taking: Reported on 04/05/2024) 84 tablet 3 ferrous sulfate 325 mg (65 mg iron) tablet Take 1 tablet by mouth once daily. (Patient not taking: Reported on 07/29/2023) 30 tablet 4 No current facility-administered medications for this visit. Allergies As of Date: 06/28/2024 (No Known Allergies) Fully Assessed 06/26/2024 Does patient have penicillin allergy: No REVIEW OF SYSTEMS: GENERAL: Negative for: Fever or Chills and Positive for: Fatigue HEENT: Negative for: Headache, Impaired Vision, Ringing in Ears, Nosebleeds NECK: Negative for: Swelling, Pain, Stiffness RESPIRATORY: Negative for: Cough, Shortness of breath, Wheezing GASTROINTESTINAL: Negative for: Heartburn, Constipation, Diarrhea, Blood in stool, Vomiting and Positive for: Nausea and Vomiting MUSCULOSKELETAL: Negative for: Muscle or joint pain, stiffness, Joint swelling NEUROLOGIC/PSYCHIATRIC: Negative for: Weakness, Paralysis, Numbness, Tingling, Tremor, Anxiety, Memory loss Reports PPD- situational due to family and brother SKIN: Negative for: Rash, Itching GENITOURINARY: Negative for: vaginal itching, vaginal discharge, hematuria or dysuria and Positive for: urinary frequency SENSITIVE EXAM: The sensitive examination was discussed with the Patient or Patient's Authorized Early Learning Teacher. As applicable, any other physician, advance practice provider, medical student, or other health professional student that will be observing or involved in the sensitive examination for educational or training purposes was discussed with the Patient or Authorized Early Learning Teacher. The Patient or Authorized Early Learning Teacher has agreed to proceed with the sensitive examination. (Sensitive examination includes inspection and/or palpation of the breasts, pelvis, prostate and anorectal regions). PHYSICAL EXAM: BP 106/68 Ht 5' 3 (1.60m) Wt 119 lb 9.6 oz (54.3kg) LMP 02/29/2024 BMI 21.19 kg/(m^2). GENERAL: pleasant in no apparent distress DERMATOLOGY: Normal, without lesions, non-icteric, and non-hirsute NECK: Supple, full range of motion, no adenopathy, and thyroid normal CHEST: Normal inspiratory effort BREAST: soft, non-tender, symmetric, no dominant mass, normal nipple-areolar complex, no lymphadenopathy, no nipple discharge, and fibrocystic changes ABDOMEN: soft, non-tender, and no masses NEURO: alert and oriented x3,exam grossly non-focal PELVIS: External genitalia normal without lesions. Perineal body intact. No vaginal or cervical lesions. No adnexal masses or tenderness. Clinical Pelvimetry: Pelvimetry clinically assessed as adequate Limited OB ultrasound exam: single intrauterine , positive cardiac activity, and crown-rump length 16w5d Darline [place] to room for dating/ gender ASSESSMENT/PLAN: 1. with fetus of unknown gestational age 2. 17 weeks gestation of 3. Short interval between pregnancies affecting in second trimester 4. Late care 5. Encounter for supervision of high risk in second trimester 6. Alcohol consumption during in first trimester PLAN: 1) Patient oriented to practice. Discussed nutrition, folic acid supplementation, dietary guidelines, exercise, smoking, alcohol, caffeine, and drug use. Discussed gestational weight gain guidelines. Discussed routine OB labs including STD/HIV. Discussed how to access Your guide to a health and the Centrifugal Screen Tender. 2) Screening: Hemoglobin A1C: ordered Baby Aspirin: The patient has been counseled about the potential benefits of low dose aspirin in and our recommendation that this be offered to all patients, regardless of whether they meet the high risk criteria specified above. She Accepts Aneuploidy Screening: Discussed aneuploidy screening, nuchal translucency/first trimester early anatomy ultrasound and NIPT. The risks/benefits and limitations of NIPT/aneuploidy screening were reviewed including the potential for false negative and false positive results. The availability of genetic counseling was reviewed. Information on aneuploidy screening was provided. The patient chooses to proceed with NIPT (10 weeks) Myriad Carrier Screening: Discussed myriad carrier screening. We discussed the availability of professional-society guided carrier screening and reviewed the conditions screened and limitations of screening. The availability of genetic counseling was reviewed. Information on carrier screening was provided. The patient Declines 3) Patient offered option of Virtual Visits. Patient prefers in person visits. Follow up in 3 weeks for anatomy US / NERY or sooner prn. Gina Kulkarni APRN.CNM documented in this encounter [facility] 06-26-2024 Instructions Rosi Pascual MA - 06/26/2024 2:29 PM EDT Please select the following link to access the [facility] Your Guide to a Healthy . [email or web address] documented in this encounter [facility] 04-14-2024 Telephone encount er Note Patient notified, voiced understanding. Local hospital staff pharmacist states not able to schedule for medical spine center so scheduling number provided to patient (please call [phone] for scheduling ) Priscila Chaudhry RN [facility] 04-14-2024 Miscellaneous Notes Formattin g of this note might be different from the original. Patient notified, voiced understanding. Local hospital staff pharmacist states not able to schedule for medical spine center so scheduling number provided to patient (please call [phone] for scheduling ) Priscila Chaudhry RN Please let patient know I e-consulted Orthopedics. It was advised that patient obtain additional x-ray imaging (lumbar spine series - has been ordered) and a new consult has been placed for the medical spine center per their recommendations. Please assist patient with scheduling. Diana Velazquez PA-C Patient does not need to see Neurology. E-consult placed to Orthopedics. Diana Velazquez PA-C Is pt needing to go to neurology? per cc'd chart from [place] - Message ----- From: Diana Velazquez PA-C Sent: 04/13/2024 6:42 AM EST To: [facility] [[email or web address] Peds First Floor Pool Was patient ever able to get scheduled with Ortho? Either through [facility] or a more local provider? Given lack of neurological sequelae and x-ray imaging results, it seems Orthopedics would be most appropriate at this time. Diana Velazquez PA-C Please advise regarding patient's report of needing to see neurology.(awaiting further info from patient) documented in this encounter [facility] 04-14-2024 Telephone encount er Note Please let patient know I e-consulted Orthopedics. It was advised that patient obtain additional x-ray imaging (lumbar spine series - has been ordered) and a new consult has been placed for the medical spine center per their recommendations. Please assist patient with scheduling. Diana Velazquez PA-C [facility] 04-14-2024 Note HNO ID: [id number] Author: DONALD DE LA TORRE PA-C Service: ? Author Type: Physician Ekg Monitor Type: Progress Notes Filed: 04/14/2024 12:33 Note Text: E-Consult Response In response to your eConsult request to Orthopedics for Jimmy L Battles regarding nodule on lumbar spine History of present illness, provided through the requesting provider documentation and current treatment plan, was reviewed. Based on the patient history provided, my recommendation is as follows: I would obtain a lumbar spine x-ray series and I would refer this patient into our medical spine center. This is the reason why the patient cannot schedule within sports medicine/orthopedics, because this is a lumbar spine/spine issue, which gets directed to our spine center. E-Consult follow up recommendation: As noted above. Donald De La Torre PA-C April 14, 2024 [facility] 04-14-2024 History of Presen t illness Narrative E-Consult Response In response to your eConsult request to Orthopedics for Jimmy Lema regarding nodule on lumbar spine History of present illness, provided through the requesting provider documentation and current treatment plan, was reviewed. Based on the patient history provided, my recommendation is as follows: I would obtain a lumbar spine x-ray series and I would refer this patient into our medical spine center. This is the reason why the patient cannot schedule within sports medicine/orthopedics, because this is a lumbar spine/spine issue, which gets directed to our spine center. E-Consult follow up recommendation: As noted above. Donald De La Torre PA-C April 14, 2024 documented in this encounter [facility] 04-14-2024 Telephone encount er Note Patient does not need to see Neurology. E-consult placed to Orthopedics. Diana Velazquez PA-C [facility] 04-13-2024 Telephone encount er Note Is pt needing to go to neurology? [facility] 04-13-2024 Telephone encount er Note per cc'd chart from [place] - Message ----- From: Diana Velazquez PA-C Sent: 04/13/2024 6:42 AM EST To: [facility] Peds First Floor Pool Was patient ever able to get scheduled with Ortho? Either through [facility] or a more local provider? Given lack of neurological sequelae and x-ray imaging results, it seems Orthopedics would be most appropriate at this time. Diana Velazquez PA-C Please advise regarding patient's report of needing to see neurology.(awaiting further info from patient) [facility] 04-07-2024 Telephone encount er Note Patient was notified of advice and/or results. Pt is unable to schedule at this time and will call back when able. [facility] 04-07-2024 Miscellaneous Notes Formattin g of this note might be different from the original. Patient was notified of advice and/or results. Pt is unable to schedule at this time and will call back when able. 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 Consult placed for Ortho/Sports medicine for further evaluation. 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 Consult placed for Ortho/Sports medicine for further evaluation. Diana Velazquez PA-C [facility] 04-05-2024 History of Presen t illness Narrative Radiology Service Progress Note PATIENT NAME: Jimmy Lema DATE OF SERVICE: April 05, 2024 TIME: 3:44 PM PATIENT IDENTITY VERIFICATION COMPLETED USING TWO (2) IDENTIFIERS: Name and Date of confirmed by patient verbally. FALL SCREENING: Has the patient had 2 falls in the last year or 1 fall with injury or currently using an Ambulatory Assistive Device (Walker, Cane, Wheelchair, Crutches, etc.)? No PATIENT GENDER DATA: Assigned female at . status: : No status: NO. PATIENT RELEVANT IMPLANT DATA REVIEWED: Yes PATIENT PRESENTS WITH AN IMPLANTABLE OR ATTACHED ELECTRO MECHANICAL DESIGNER: No RADIOLOGY DEPARTMENT: General X-ray: Exam(s) Completed: Spine X-Ray(s): Sacrum/Coccyx PERIPHERAL IV DATA: Not applicable SIGNED BY: RT Juancarlos(Darren) April 05, 2024 3:44 PM documented in this encounter [facility] 04-05-2024 Note HNO ID: [id number] Author: KALLI GARCÍA RT(R) Service: ? Author Type: Youth Liaison Officer Type: Progress Notes Filed: 04/05/2024 15:56 Note Text: Radiology Service Progress Note PATIENT NAME: Jimmy Lema DATE OF SERVICE: April 05, 2024 TIME: 3:44 PM PATIENT IDENTITY VERIFICATION COMPLETED USING TWO (2) IDENTIFIERS: Name and Date of confirmed by patient verbally. FALL SCREENING: Has the patient had 2 falls in the last year or 1 fall with injury or currently using an Ambulatory Assistive Device (Walker, Cane, Wheelchair, Crutches, etc.)? No PATIENT GENDER DATA: Assigned female at . status: : No status: NO. PATIENT RELEVANT IMPLANT DATA REVIEWED: Yes PATIENT PRESENTS WITH AN IMPLANTABLE OR ATTACHED ELECTRO MECHANICAL DESIGNER: No RADIOLOGY DEPARTMENT: General X-ray: Exam(s) Completed: Spine X-Ray(s): Sacrum/Coccyx PERIPHERAL IV DATA: Not applicable SIGNED BY: RT Juancarlos(R) April 05, 2024 3:44 PM [facility] 04-05-2024 Note HNO ID: [id number] Author: VELAZQUEZ, DIANA, PA-C Service: ? Author Type: Physician Ekg Monitor Type: Progress Notes Filed: 04/13/2024 06:39 Note Text: PEDIATRIC VISIT SERVICE DATE: 04/05/2024 SUBJECTIVE: Jimmy Lema is a 19 year who presents for evaluation of lump located on her lower back - midline. Patient reports that it is right at the end of her spine. States it has been there for as long as she can remember, but got larger after she got . Now is more protuberant. States it is hard and non-mobile. Denies pain/tenderness. Does not believe there to be any overlying redness. No discharge or crusting as far as patient is aware. Denies numbness/tingling. No changes in sensation. No urinary incontinence. History was obtained from: patient HISTORY: ACTIVE PROBLEM LIST Abnormal Glucose Tolerance in - 04/06/2023 Comment: 04/06/23-Failed 1hr GCT, attempted 3hr GTT could not finish due to difficulty with blood draw. Recommend repeat 3hr GTT and will get this done. Radha Manrique APRN.CNM April 20, 2023 Vomited two different times trying to do this. will not reorder. Gemma Reaves MD Anemia Complicating , Third Trimester - 03/16/2023 Comment: 04/06/23-Hgb 10.3 at 28 wk, repeat at 32wk. Iron supplement. Radha Manrique APRN.CNM Gbs Bacteriuria - 11/26/2022 Comment: 04/06/23-GBS prophylaxis during labor. Radha Manrique APRN.CNM PAST MEDICAL HISTORY Diagnosis Date NEGATIVE MEDICAL HISTORY PAST SURGICAL HISTORY Procedure Laterality Date NONE ALLERGIES No Known Allergies PAIN RELIEF ES, ACETAMINOPHEN, 500 mg tablet TAKE 2 TABLETS BY MOUTH EVERY 6 HOURS NEEDED FOR PAIN OR FEVER ibuprofen (MOTRIN) 600 mg tablet Take 600 mg by mouth every 6 hours as needed. PNV no.95/ferrous fum/folic ac ( ORAL) Take by mouth. (Patient not taking: Reported on 04/05/2024) Norethindrone, Contraceptive, 0.35 mg tablet Take 1 tablet by mouth once daily. (Patient not taking: Reported on 04/05/2024) ferrous sulfate 325 mg (65 mg iron) tablet Take 1 tablet by mouth once daily. (Patient not taking: Reported on 07/29/2023) OBJECTIVE: Pulse 86 Temp 36.7 ?C (98.1 ?F) (Temporal) Resp 18 Wt 52.2 kg (115 lb) LMP 11/22/2023 (Approximate) BMI 20.37 kg/m? General: alert and active in no apparent distress, cooperative, pleasant Eyes: conjunctiva clear Nose: clear Neck: supple, no adenopathy Lungs: clear to auscultation bilaterally, good air exchange, no retractions, breathing comfortably, no wheezes, rales, or rhonchi CVS: Normal rate, regular rhythm, no murmur Back: Firm protuberant mass/lump present mid lower back. No tenderness to palpation. No overlying erythema or other skin changes. Full ROM without any pain/discomfort elicited Skin: No rashes, lesions or skin changes Neuro: Sensation intact, normal gait ASSESSMENT/PLAN: Encounter Diagnosis ICD-10-CM 1. Bony abnormality Q79.9 XR SACRUM/COCCYX 3V AP/LAT - Discussed with patient uncertainty at this time with diagnosis - Will proceed with x-ray for further evaluation - All questions answered - Follow up to be determined by imaging results SIGNATURE: Diana Velazquez PA-C PATIENT NAME:Jimmy Lema DATE: 04/05/2024 TIME: 3:11 PM [facility] 04-05-2024 History of Presen t illness Narrative PEDIATRIC VISIT SERVICE DATE: 04/05/2024 SUBJECTIVE: Jimmy Lema is a 19 year who presents for evaluation of lump located on her lower back - midline. Patient reports that it is right at the end of her spine. States it has been there for as long as she can remember, but got larger after she got . Now is more protuberant. States it is hard and non-mobile. Denies pain/tenderness. Does not believe there to be any overlying redness. No discharge or crusting as far as patient is aware. Denies numbness/tingling. No changes in sensation. No urinary incontinence. History was obtained from: patient HISTORY: ACTIVE PROBLEM LIST Abnormal Glucose Tolerance in - 04/06/2023 Comment: 04/06/23-Failed 1hr GCT, attempted 3hr GTT could not finish due to difficulty with blood draw. Recommend repeat 3hr GTT and will get this done. Radha Manrique APRN.CNM April 20, 2023 Vomited two different times trying to do this. will not reorder. Gemma Reaves MD Anemia Complicating , Third Trimester - 03/16/2023 Comment: 04/06/23-Hgb 10.3 at 28 wk, repeat at 32wk. Iron supplement. Radha Manrique APRN.CNM Gbs Bacteriuria - 11/26/2022 Comment: 04/06/23-GBS prophylaxis during labor. Radha Manrique APRN.CNM PAST MEDICAL HISTORY Diagnosis Date NEGATIVE MEDICAL HISTORY PAST SURGICAL HISTORY Procedure Laterality Date NONE ALLERGIES No Known Allergies PAIN RELIEF ES, ACETAMINOPHEN, 500 mg tablet TAKE 2 TABLETS BY MOUTH EVERY 6 HOURS NEEDED FOR PAIN OR FEVER ibuprofen (MOTRIN) 600 mg tablet Take 600 mg by mouth every 6 hours as needed. PNV no.95/ferrous fum/folic ac ( ORAL) Take by mouth. (Patient not taking: Reported on 04/05/2024) Norethindrone, Contraceptive, 0.35 mg tablet Take 1 tablet by mouth once daily. (Patient not taking: Reported on 04/05/2024) ferrous sulfate 325 mg (65 mg iron) tablet Take 1 tablet by mouth once daily. (Patient not taking: Reported on 07/29/2023) OBJECTIVE: Pulse 86 Temp 36.7 C (98.1 F) (Temporal) Resp 18 Wt 52.2 kg (115 lb) LMP 11/22/2023 (Approximate) BMI 20.37 kg/m General: alert and active in no apparent distress, cooperative, pleasant Eyes: conjunctiva clear Nose: clear Neck: supple, no adenopathy Lungs: clear to auscultation bilaterally, good air exchange, no retractions, breathing comfortably, no wheezes, rales, or rhonchi CVS: Normal rate, regular rhythm, no murmur Back: Firm protuberant mass/lump present mid lower back. No tenderness to palpation. No overlying erythema or other skin changes. Full ROM without any pain/discomfort elicited Skin: No rashes, lesions or skin changes Neuro: Sensation intact, normal gait ASSESSMENT/PLAN: Encounter Diagnosis ICD-10-CM 1. Bony abnormality Q79.9 XR SACRUM/COCCYX 3V AP/LAT - Discussed with patient uncertainty at this time with diagnosis - Will proceed with x-ray for further evaluation - All questions answered - Follow up to be determined by imaging results SIGNATURE: Diana Velazquez PA-C PATIENT NAME:Jimmy Lema DATE: 04/05/2024 TIME: 3:11 PM documented in this encounter [facility] 03-16-2024 Telephone encount er Note Pt notified and voiced understanding. Chi Galdamez RN [facility] 03-16-2024 Miscellaneous Notes Formattin g of this note might be different from the original. Pt notified and voiced understanding. Chi Galdamez RN Based on urinalysis it does appear the patient has a urinary tract infection Macrobid into drug [facility] in [place]. Please notify patient. Siomara Lanza APRN.CNP documented in this encounter [facility] 03-16-2024 Telephone encount er Note Based on urinalysis it does appear the patient has a urinary tract infection Macrobid into drug [facility] in [place]. Please notify patient. Siomara Lanza APRN.CNP [facility] 03-14-2024 Telephone encount er Note Orders filed. Please contact pt. Siomara Lanza APRN.CNP [facility] 03-14-2024 Miscellaneous Notes Formattin g of this note might be different from the original. Orders filed. Please contact pt. Siomara Bancroft, CERTIFIED HAND THERAPIST.MARKETING DEVELOPMENT SPECIALIST Orders pending documented in this encounter [facility] 03-14-2024 Telephone encount er Note Orders pending [facility] 09-30-2023 Telephone encount er Note Faxed [facility] 09-30-2023 Miscellaneous Notes Formattin g of this note might be different from the original. Faxed Received breast pump RX from [address] [place] [address]. To IRWIN to sign. Marium Patel RN documented in this encounter [facility] 09-29-2023 Telephone encount er Note Received breast pump RX from [address] [place] [address]. To IRWIN to sign. Marium Patel RN [facility] 09-06-2023 Telephone encount er Note Can you address? [facility] 09-06-2023 Miscellaneous Notes Formattin g of this note might be different from the original. Can you address? documented in this encounter [facility] 09-02-2023 Telephone encount er Note Faxed [facility] 09-02-2023 Miscellaneous Notes Formattin g of this note might be different from the original. Faxed Received faxed order for breast pump from [employer]. Order form on Dr. Alhaji thomas for signature. documented in this encounter [facility] 09-02-2023 Telephone encount er Note Received faxed order for breast pump from [employer]. Order form on Dr. Alhaji thomas for signature. [facility] 07-29-2023 Instructions Paulina Chadwick APRN.CNP - 07/29/2023 8:58 AM EDT Constipation - Docusate sodium 200 mg or Dara-colace 2 tablets at bedtime. Add Miralax in the morning as needed. documented in this encounter [facility] 07-29-2023 History of Presen t illness Narrative VISIT Jimmy Lema is a 18 year old year old here for visit. Delivery Summary: on 06/17/23 (elective induction), 8lb 3oz, bilateral labial laceration with repair ROS/ Recovery: Feeding: Breast feeding problems: None Menses since delivery: has not had any more bleeding Menstrual pattern prior to : Regular periods [place] since delivery: Not resumed Depression: denies symptoms of depression. OB Depression and Anxiety Screening- This Encounter (since 07/28/2023) Over the past 2 weeks have you felt down, depressed, or hopeless? Negative Over the past two weeks, have you felt little interest or pleasure in doing things? Negative Feeling nervous, anxious or on edge 0-Not at all Not being able to stop or control worrying 0-Not al all Anxiety Pre-Screening Total (If >/= 3 additional questions will be reviewed) 0 Emotional support: Yes Bowel symptoms: Negative for abdominal discomfort, blood in stools or black stools + constipation and hemorrhoids Abdomen: N/A Bladder symptoms: No dysuria, gross hematuria, urinary frequency, urinary urgency, or incontinence Other issues: None Last Pap: NA HPV: NA PAST MEDICAL HISTORY Diagnosis Date NEGATIVE MEDICAL HISTORY PAST SURGICAL HISTORY Procedure Laterality Date NONE History reviewed. No pertinent family history. Social History Tobacco Use Smoking status: Never Smokeless tobacco: Never Vaping Use Vaping Use: Never used Substance Use Topics Alcohol use: Never Drug use: Never PHYSICAL EXAMINATION: BP 102/64 Ht 5' 3 (1.60m) Wt 124 lb (56.2kg) LMP 09/04/2022 BMI 21.97 kg/(m^2). GENERAL: pleasant, female in no apparent distress HEENT: Normocephalic, atraumatic, mucus membranes moist, and no lesions NECK: Supple, full range of motion, no adenopathy, and thyroid normal DERMATOLOGY: Normal, without lesions, non-icteric, and non-hirsute BREAST: soft, non-tender, symmetric, no dominant mass, normal nipple-areolar complex, no lymphadenopathy, and no nipple discharge CHEST: Normal inspiratory effort ABDOMEN: soft, non-tender, and no masses. INCISION: N/A PELVIC: external genitalia normal, normal Bartholin's glands, urethra, [place]'s glands, no vulvar lesions, no cervical lesions, good vaginal support, physiologic discharge present, normal appearing perineal body and perianal region + hemorrhoid BIMANUAL: uterus normal size, shape and consistency, no adnexal masses, and non-tender NEURO: alert and oriented x3,exam grossly non-focal EXTREMITIES: normal ASSESSMENT AND PLAN: 18 year old status post with normal course. and course complicated by constipation. Contraception plan: progesterone only pill Follow up: weight loss: Goal set for 10% of body weight over 6 months. Discussed diet and exercise., Progesterone only OCP - patient will call when no longer , RTC for annual exams and PRN Can resume intercourse when physically, emotionally, and mentally ready. Abnormal glucose affecting - ICD9: 648.80, ICD10: O99.810 - Was not able to tolerate 3 hour during so tested sugars - Opts for hgba1c, reviewed 2 hour is gold standard for screening. To have hgba1c done 3 months . - Reviewed increased risk for diabetes throughout lifetime, recommend low sugar diet - HEMOGLOBIN A1C Constipation, unspecified constipation type - ICD9: 564.00, ICD10: K59.00 - Reviewed Colace, increased hydration - Tucks pads for symptomatic relief - Discontinue iron, eat iron rich foods Sacral mass - ICD9: 724.6, ICD10: M53.3 - Has had whole life - 4-5 cm fluid filled mass to sacral region - Recommend follow up with PCP Paulina Chadwick APRN.MARKETING DEVELOPMENT SPECIALIST documented in this encounter [facility] 06-18-2023 Hospital Discharg e instructions Additional Instructions Date of Discharge: 06/18/23 [facility] Work Phone: 06-18-2023 Discharge summary Note Date/Time June 18, 2023 7:27am [facility] Medical Records Department [address] [place] [id number] Discharge Summary 06/18/23 0725 MR#: [id number] Acct: [id number] Name: JIMMY LEMA Rep #:[id number] : 2005 18 From: Marium Stevenson MD PCP: Care Physician,No Primary Status :ADM IN Location: [id number] Providers Date of Admission: 06/16/23 Date of Discharge: 06/18/23 Primary Care Physician: No Primary Care Phys Reason For Visit: VAGINAL DELIVERY Diagnosis Discharge Diagnosis (1) (spontaneous vaginal delivery): Status: Acute Code(s): O80 - Encounter for full-term uncomplicated delivery Plan discharge this afternoon Medications at Discharge Home Medications acetaminophen 500 mg tablet 1,000 mg (2 x 500 mg) PO Q6H PRN PRN Pain 1-10 Or Fever #30 tabs 06/18/23 ibuprofen 600 mg tablet 600 mg PO Q6H PRN PRN Pain Score 1-10 #30 tabs 06/18/23 Hospital Course Operations None Procedures None Summary of Care Provided Minutes Spent on Discharge: 21 Hospital Course: Induction of labor at 40+6 weeks. Pitocin and AROM. Progressed quickly to complete and pushed for 15 minutes for a spontaneous vaginal delivery. . No complications Physical Exam Const alert and no apparent distress Narrative: Fundus firm, below umbilicus. Weight / BMI Weight Weight: 66.678 kg Body Mass Index (BMI) 26.0 ABG / Lab / Microbiology Data 06/16/23 19:50 Meaningful Use Info Meaningful Use Diagnoses (Choose all that apply): None applicable Discharge Plan Admission Admit Date/Time: 06/16/23 18:55 Primary Reason for Your Visit: induction of labor Attending Provider: Marium Stevenson Primary Care Provider: Care Physician,No Primary Instructions Patient Instructions: After a Vaginal Discharge Orders/Prescriptions Prescriptions: New acetaminophen 500 mg Tablet 1,000 mg PO Q6H PRN PRN (Reason: Pain 1-10 Or Fever) Qty: 30 0RF ibuprofen 600 mg Tablet 600 mg PO Q6H PRN PRN (Reason: Pain Score 1-10) Qty: 30 0RF Referrals / Follow Up: Care Physician,No Primary [Primary Care Provider] - Disposition Disposition (needs filled in before D/C Order can be placed): Home, Self Care 06/18/23726 <Electronically signed by Marium Stevenson MD> Cosigner Signature (if applicable): CC: Dr. Marium Stevenson MD; No Primary Care Physician~ Signed [facility] Work Phone: 1(345) 427-915904-12-2024 Progress note Author Marium Stevenson [facility] June 18, 2023 7:22am Note Date/Time June 18, 2023 7:2 2am [facility] Medical Records Department [address] [place], [place] [address] [place] [address] Progress Note - OBGYN 06/18/2321 MR#: [id number] Acct: [id number] Name: JIMMY LEMA Rep #:[id number] : 2005 18 From: Marium Stevenson MD PCP: Care Physician,No Primary Status :ADM IN Location: [id number] Subjective Subjective Feels good. No complaints. Breast feeding. Pain controlled. Lochia decreasing. Ambulating and voiding without difficulty Objective Data Objective Data Vital Signs: Vital Signs Temp Pulse Resp BP Pulse Ox O2 Del Method 97.3 F L 79 16 121/85 H 99 Room Air 06/18/23 03:50 06/18/23 03:50 06/18/23 03:50 06/18/23 03:50 06/18/23 03:50 06/18/23 03:50 Oxygen Delivery Method Room Air Weight: 66.678 kg Body Mass Index (BMI) 26.0 Intake & Output: Intake and Output for Last 24 Hours 06/16/23 06/17/23 06/18/23 23:59 23:59 23:59 Intake Total 240 / 240 3121.71 / 3121.71 Output Total 100 / 100 1020 / 1020 300 / 300 Balance 140 / 140 2101.71 / 2101.71 -300 / -300 Lab / Micro Data 06/16/23 19:50 Physical Exam Const alert and no apparent distress Narrative: Fundus firm, below umbilicus. Assessment & Plan (1) (spontaneous vaginal delivery): PLAN: Plan discharge this afternoon 06/18/23721 <Electronically signed by Marium Stevenson MD> Cosigner Signature (if applicable): CC: ~ Signed [facility] Work Phone: 1(536) 565-880504-12-2024 [facility] Medical Records Department [address] [place] [address] Discharge Summary 06/18/23724 MR#: [id number] Acct: [id number] Name: JIMMY LEMA Rep #: [id number] : 2005 18 From: Marium Stevenson MD PCP: Care Physician,No Primary Status:ADM IN Location: [id number] Providers Date of Admission: 06/16/23 Date of Discharge: 06/18/23 Primary Care Physician: No Primary Care Phys Reason For Visit: VAGINAL DELIVERY Diagnosis Discharge Diagnosis (1) (spontaneous vaginal delivery): Status: Acute Code(s): O80 - Encounter for full-term uncomplicated delivery Plan discharge this afternoon Medications at Discharge Home Medications acetaminophen 500 mg tablet 1,000 mg (2 x 500 mg) PO Q6H PRN PRN Pain 1-10 Or Fever #30 tabs 06/18/23 ibuprofen 600 mg tablet 600 mg PO Q6H PRN PRN Pain Score 1-10 #30 tabs 06/18/23 Hospital Course Operations None Procedures None Summary of Care Provided Minutes Spent on Discharge: 21 Hospital Course: Induction of labor at 40+6 weeks. Pitocin and AROM. Progressed quickly to complete and pushed for 15 minutes for a spontaneous vaginal delivery. . No complications Physical Exam Const alert and no apparent distress Narrative: Fundus firm, below umbilicus. Weight / BMI Weight Weight: 66.678 kg Body Mass Index (BMI) 26.0 ABG / Lab / Microbiology Data 06/16/23 19:50 Meaningful Use Info Meaningful Use Diagnoses (Choose all that apply): None applicable Discharge Plan Admission Admit Date/Time: 06/16/23 18:55 Primary Reason for Your Visit: induction of labor Attending Provider: Marium Stevenson Primary Care Provider: Care Physician,No Primary Instructions Patient Instructions: After a Vaginal Discharge Orders/Prescriptions Prescriptions: New acetaminophen 500 mg Tablet 1,000 mg PO Q6H PRN PRN (Reason: Pain 1-10 Or Fever) Qty: 30 0RF ibuprofen 600 mg Tablet 600 mg PO Q6H PRN PRN (Reason: Pain Score 1-10) Qty: 30 0RF Referrals / Follow Up: Care Physician,No Primary [Primary Care Provider] - Disposition Disposition (needs filled in before D/C Order can be placed): Home, Self Care 06/18/23 0727 Cosigner Signature (if applicable): CC: Dr. Marium Stevenson MD; No [facility] History of Present illness Narrative * Marium Patel RN - 06/17/2023 2:05 PM EDT Patient delivered via at [facility] on 06/17/23 per Marium Stevenson MD. See OB Outcome note. Marium Patel RN documented [facility] Procedure [facility]04-11-2024 Progress note Author Marium Stevenson [facility] June 17, 2023 8:28am Note Date/Time June 17, 2023 8:[address] [facility] Medical Records Department [address] [place] [address] Progress Note - OBGYN 06/17/23 0817 MR#: [id number] Acct: [id number] Name: JIMMY LEMA Rep #:[id number] : 2005 18 From: Marium Stevenson MD PCP: Care Physician,No Primary Status :ADM IN Location: [place] [id number] Subjective Subjective AROM for clear fluid. Comfortable with epidural. 4 cm Objective Data Objective Data Vital Signs: Vital Signs Temp Pulse Resp BP Pulse Ox 99.2 F H 82 15 110/69 100 06/17/23 07:15 06/17/23 07:34 06/17/23 07:38 06/17/23 07:34 06/17/23 07:38 Weight: 66.678 kg Body Mass Index (BMI) 26.0 Intake & Output: Intake and Output for Last 24 Hours 06/15/23 06/16/23 06/17/23 23:59 23:59 23:59 Intake Total 240 / 240 302.04 / 302.04 Output Total 100 / 100 Balance 140 / 140 302.04 / 302.04 Lab / Micro Data 06/16/23 19:50 Labs: Laboratory Results - last 24 hr 06/16/23 19:50: WBC 12.2 H, RBC 3.75 L, Hgb 12.0, Hct 35.5 L, MCV 94.7, MCH 32.0, MCHC 33.8, RDW Std Deviation 48.0 H, RDW Coeff of Andrés 13.8, Plt Count 214,MPV 10.6, Immature Gran % (Auto) 1.600 H, Neut % (Auto) 75.7 H, Lymph % (Auto) 14.0 L, Childress % (Auto) 8.1, Eos % (Auto) 0.3, Baso % (Auto) 0.3, Absolute Neuts (auto) 9.2 H, Absolute Lymphs (auto) 1.70, Nucleated RBC % 0, Syphilis Total Ab Non-reactive, Blood Type Cancelled, Antibody Screen Cancelled 06/16/23 20:15: Antibody Screen NEGATIVE ROS Constitutional Constitutional: Reports systems reviewed and no addt'l complaints, except as documented Cardiovascular Cardiovascular: Reports systems reviewed and no addt'l complaints, except as documented Gastrointestinal Gastrointestinal: Reports systems reviewed and no addt'l complaints, except as documented Neurologic Neurologic: Reports systems reviewed and no addt'l complaints, except as documented Psychiatric Psychiatric: Reports systems reviewed and no addt'l complaints, except as documented Physical Exam Const alert and oriented x3 HEENT normocephalic and head/scalp atraumatic Resp normal respiratory effort GI normal to inspection, nondistended, normoactive bowel sounds Extremity normal to inspection Neuro oriented x3 and CN's II-XII intact bilaterally Psych mental status grossly normal NST FHR Rate Baby A Baseline: 145 Variability:: Moderate Accelerations:: 15 x 15 Decelerations:: None FHR Category:: Category I Uterine Activity:: q3-4 Pitocin at 4 Assessment & Plan (1) 40 weeks gestation of : (2) Encounter for elective induction of labor: 06/17/23827 <Electronically signed by Marium Stevenson MD> Cosigner Signature (if applicable): CC: ~ Signed [facility] Work Phone: 1(750) 919-116404-11-2024 History and physical note Author Gina Kulkarni [facility] June 16, 2023 11:13pm Note Date/Time June 16, 2023 8:1 4pm [facility] Medical Records Department [address] [place] [address] H&P Exam - EXTERNAL GRINDER 06/16/232006 MR#: [id number] Acct: [id number] Name: JIMMY LEMA Rep #:[id number] : 2005 18 From: Gina Kulkarni CNM PCP: Care Physician,No Primary Status :ADM IN Location: [id number] HPI - General General Date of Admission: 06/16/23 HPI Narrative JIMMY LEMA, is a 18 F at 40.5 weeks gestation who presents for an elective induction of labor. Maternal Data Information JEFFERY Calculator Estimated Delivery Date Method Current WG Current Estimate 06/11/23 Manual 40w 5d [facility] Medical History (Updated 06/16/23 @ 20:11 by Gina Kulkarni CNM) Anemia Seizures Allergy/AdvReac Type Severity Reaction Status Date / Time No Known Allergies Allergy Verified 06/16/23 19:28 Social History Smoking Status: Never smoker History Elective abortions Hx Para 0 Spontaneous abortions Hx # Term Pregnancies Ectopic pregnancies Hx # Pregnancies Multiple births # of living children ROS Eyes Eyes: Denies blurry vision, change in vision or spots in vision ENT HEENT: Denies dizziness or headache(s) Cardiovascular Cardiovascular: Denies abdominal pain, chest pain or dyspnea Respiratory/Chest Respiratory/Chest: Denies cough, dyspnea, shortness of breath at rest or shortness of breath with exertion Gastrointestinal Gastrointestinal: Denies abdominal pain, diarrhea or vomiting Genitourinary Genitourinary: Denies change in urinary stream, difficulty urinating or dysuria Musculoskeletal Musculoskeletal: Reports none Integumentary Integumentary: Denies rash Neurologic Neurologic: Denies dizziness, headache(s), memory loss or weakness Psychiatric Psychiatric: Reports none Vital Signs Vital Signs Vital Signs: 06/16/23 19:22 06/16/23 19:22 06/16/23 19:24 Temperature Temperature Source Temporal Pulse Rate 90 Respiratory Rate Blood Pressure 131/89 H BP Systolic 131 BP Diastolic 89 06/16/23 19:24 06/16/23 19:24 Temperature 98.6 F Temperature Source Pulse Rate Respiratory Rate 16 Blood Pressure BP Systolic BP Diastolic Weight Weight: 147 lb Body Mass Index (BMI) 26.0 Physical Exam Const alert, oriented x3 and no apparent distress General Appearance: cooperative Orientation / Consciousness: awake Exam Limitations: no limitations HEENT normocephalic Head and Scalp: normal to inspection Eyes General Eye: normal appearance of both eyes Neck full ROM and no lymphadenopathy Lymph Lymphatic: no lymphadenopathy noted Chest inspection of chest normal Resp normal respiratory effort, normal air movement and clear to auscultation bilaterally Effort and Inspection: able to speak in complete sentences and symmetric chest movement Cardio regular rate and regular rhythm GI normal to inspection, nondistended, normoactive bowel sounds Back/Spine normal ROM Extremity full ROM and no calf tenderness Skin no rashes or lesions noted General Skin Exam: no breakdown Neuro oriented x3 and CN's II-XII intact bilaterally Psych mental status grossly normal and thought process normal Labs Labs Labs: Blood Type Pending Antibody Screen NEGATIVE Hct 35.5 % (37-47) L Hgb 12.0 g/dL (12.0-15.0) Syphilis Total Ab Non-reactive GBS positive Assessment & Plan (1) 40 weeks gestation of : (2) High risk teen : (3) Anemia affecting : (4) GBS bacteriuria: (5) Encounter for elective induction of labor: (6) History of elevated glucose: COMMENT: 1 hour GCT elevated and patient was unable to complete 3 hour GTT PLAN: Plan Admit to labor and delivery / Routine labs Start IV and run fluids per orders GBS positive- Start PCN 5 million units IV x 1 now and continue PCN 3 million units IV every 4 hours until delivery Cytotec 25 mcg PO every 4 hours x 6 doses total Villalobos bulb unable to be placed at this time due to acuity on unit Dr. Reaves notified of admission and is collaborating physician 06/16/23 5848 <Electronically signed by Gina Kulkarni CNM> Cosigner Signature (if applicable): CC: ARELIS Kulkarni; No Primary Care Physician~ Signed [facility] Work Phone: 1(993) 286-141504-11-2024 Progress note Author Gina Kulkarni [facility] June 16, 2023 11:11pm Note Date/Time June 16, 2023 11: 11pm [facility] Medical Records Department [address] [place] [address] Progress Note - OBGYN 06/16/23 2309 MR#: [id number] Acct: [id number] Name: JIMMY LEMA Rep #:[id number] : 2005 18 From: Gina Kulkarni CNM PCP: Care Physician,No Primary Status :ADM IN Location: [id number] Subjective Subjective Patient seen at bedside. Denies any pain. Feeling occasional contractions. Objective Data Objective Data Vital Signs: Vital Signs Temp Pulse Resp BP Pulse Ox 97.3 F L 81 16 135/79 H 98 06/16/23 22:58 06/16/23 22:57 06/16/23 22:58 06/16/23 22:57 06/16/23 22:57 Weight: 147 lb Body Mass Index (BMI) 26.0 Intake & Output: Intake and Output for Last 24 Hours 06/14/23 06/15/23 06/16/23 23:59 23:59 23:59 Output Total 100 / 100 Balance -100 / -100 Lab / Micro Data 06/16/23 19:50 Labs: Laboratory Results - last 24 hr 06/16/23 19:50: WBC 12.2 H, RBC 3.75 L, Hgb 12.0, Hct 35.5 L, MCV 94.7, MCH 32.0, MCHC 33.8, RDW Std Deviation 48.0 H, RDW Coeff of Andrés 13.8, Plt Count 214,MPV 10.6, Immature Gran % (Auto) 1.600 H, Neut % (Auto) 75.7 H, Lymph % (Auto) 14.0 L, Childress % (Auto) 8.1, Eos % (Auto) 0.3, Baso % (Auto) 0.3, Absolute Neuts (auto) 9.2 H, Absolute Lymphs (auto) 1.70, Nucleated RBC % 0, Syphilis Total Ab Non-reactive, Blood Type Cancelled, Antibody Screen Cancelled 06/16/23 20:15: Antibody Screen NEGATIVE Assessment & Plan (1) 40 weeks gestation of : (2) High risk teen : (3) Anemia affecting : (4) GBS bacteriuria: (5) Encounter for elective induction of labor: (6) History of elevated glucose: COMMENT: 1 hour GCT elevated and patient was unable to complete 3 hour GTT PLAN: Plan CE 2/60/-2 Villalobos bulb placed without difficulty and filled with 30 cc N/S Cat. 1 tracing 06/16/23 4099 <Electronically signed by Gina Kulkarni CNM> Cosigner Signature (if applicable): CC: ~ Signed [facility] Work Phone: 1(894) 683-737604-02-2024 Miscellaneous Notes* Quick Notes - Kari Mane MD - 06/08/2023 3:34 PM EDT KJ - VB No. LOF No. CTXS No. Movement: present. Other c/o: No. Medication list reviewed. Physical Exam See Flow Sheet Gen: no accute distress, well appearing Abd: soft, nontender, gravid A/P 39w4d Estimated Date of Delivery: 06/11/23 GBS in urine - needs treatment in labor IOL - discussed R/B/A and will schedule near 41 weeks labor precautions reviewed, Kick counts reviewed. Kari Mane MD [facility]24 Instructions* Patient Instructions* Margarita Gibbs MA - 06/08/2023 11:17 AM EDT SEQUENTIAL SCREENINGS [facility] offers sequential screenings for women who are interested in screenings for chromosomal abnormalities and certain defects during a . The sequential screen combinesultrasound and blood tests to determine the risk of chromosomal abnormalities, including Down's Syndrome (Trisomy 21) and Trisomy 18, as well as open neural tube defects including spina bifida. Ultrasound examination is performed between 11 weeks and 13 weeks gestational age. Blood tests are drawn after the ultrasound and again later in the between 15 and 21 weeks gestational age. Please let your physician know if you are interested in this testing. It will require an appointment withour imaging technician. This is not an ultrasound performed by a physician in our office during a routine visit. SIGNS AND SYMPTOMS OF LABOR 1. Contractions every 10 minutes or more often 2. Clear, pink, or brownish fluid (water) leaking from vagina 3. Feeling that baby is pushing down, pressure 4. Low, dull backache 5. Cramps that feel like a period 6. Cramps with or without diarrhea If you notice any of the above symptoms, contact our office at [phone] and ask to speak with anurse. After hours, you can call doctors registry at [phone] OR call [facility] at [phone] ask to have the doctor manager compensation paged. If you consider this an emergency, dial 1-- or go to your nearest emergency department. NEED HELP? Are you dealing with a violent or abusive relationship? Are you a victim of rape or sexual assult? Call [facility] ([place]) 24 hour Crisis Hotline: 555.237.7481 or 622-011-7249. MANUAL Your Guide to a Healthy manual is now on-line. Visit [email or web address] to download your free copy documented in this encounterR[facility]03-26-2024 Miscellaneous Notes* Quick Notes - Kari Mane MD - 06/01/2023 11:47 AM EDT KJ - VB No. LOF No. CTXS No. Movement: present. Other c/o: No. Medication list reviewed. Physical Exam See Flow Sheet Gen: no accute distress, well appearing Abd: soft, nontender, gravid A/P 38w4d Estimated Date of Delivery: 06/11/23 GBS in urine - NEEDS treated in labor Anemia - encouraged Fe & Regular PNV use Labor precautions reviewed, Kick counts reviewed. Kari Mane MD documented in this encounterR[facility]03-26-2024 Instructions* Patient Instructions* Marah Snyder MA - 06/01/2023 11:26 AM EDT SEQUENTIAL SCREENINGS [facility] offers sequential screenings for women who are interested in screenings for chromosomal abnormalities and certain defects during a . The sequential screen combinesultrasound and blood tests to determine the risk of chromosomal abnormalities, including Down's Syndrome (Trisomy 21) and Trisomy 18, as well as open neural tube defects including spina bifida. Ultrasound examination is performed between 11 weeks and 13 weeks gestational age. Blood tests are drawn after the ultrasound and again later in the between 15 and 21 weeks gestational age. Please let your physician know if you are interested in this testing. It will require an appointment withour imaging technician. This is not an ultrasound performed by a physician in our office during a routine visit. SIGNS AND SYMPTOMS OF LABOR 1. Contractions every 10 minutes or more often 2. Clear, pink, or brownish fluid (water) leaking from vagina 3. Feeling that baby is pushing down, pressure 4. Low, dull backache 5. Cramps that feel like a period 6. Cramps with or without diarrhea If you notice any of the above symptoms, contact our office at [phone] and ask to speak with anurse. After hours, you can call doctors registry at [phone] OR call [facility] at [phone] ask to have the doctor manager compensation paged. If you consider this an emergency, dial 9-1-1 or go to your nearest emergency department. NEED HELP? Are you dealing with a violent or abusive relationship? Are you a victim of rape or sexual assult? Call [facility] ([place]) 24 hour Crisis Hotline: 136.900.4545 or 099-522-8803. MANUAL Your Guide to a Healthy manual is now on-line. Visit [email or web address] to download your free copy documented in this encounterR[facility]03-25-2024 History of Present illness Narrative* Marah Stallings MA - 05/31/2023 10:09 AM EDT POPULATION HEALTH NAVIGATION OUTREACH Action/I 1st attempt: Called and left message to call back to discuss ict help desk technician. message sent. Reason for Outreach Medicaid OB/Peds Care Gaps due: N/A Patient Contacted: Unable or unnecessary to reach patient: Left message MyChart message sent Navigation Signature: Marah Oakes MA May 31, 2023 10:10 AM documented in this encounterR[facility]03-19-2024 Miscellaneous Notes* Quick Notes - Kari Mane MD - 05/25/2023 1:53 PM EDT KJ - VB No. LOF No. CTXS No. Movement: present. Other c/o: No. Medication list reviewed. Physical Exam See Flow Sheet Gen: no accute distress, well appearing Abd: soft, nontender, gravid A/P 37w4d Estimated Date of Delivery: 06/11/23 Anemia - continue iron & PNV Labor precautions reviewed, Kick counts reviewed. Kari Mane MD documented in this encounterR[facility]03-19-2024 Instructions* Patient Instructions* Brandon Gilman MA - 05/25/2023 1:24 PM EDT SEQUENTIAL SCREENINGS [facility] offers sequential screenings for women who are interested in screenings for chromosomal abnormalities and certain defects during a . The sequential screen combinesultrasound and blood tests to determine the risk of chromosomal abnormalities, including Down's Syndrome (Trisomy 21) and Trisomy 18, as well as open neural tube defects including spina bifida. Ultrasound examination is performed between 11 weeks and 13 weeks gestational age. Blood tests are drawn after the ultrasound and again later in the between 15 and 21 weeks gestational age. Please let your physician know if you are interested in this testing. It will require an appointment withour imaging technician. This is not an ultrasound performed by a physician in our office during a routine visit. SIGNS AND SYMPTOMS OF LABOR 1. Contractions every 10 minutes or more often 2. Clear, pink, or brownish fluid (water) leaking from vagina 3. Feeling that baby is pushing down, pressure 4. Low, dull backache 5. Cramps that feel like a period 6. Cramps with or without diarrhea If you notice any of the above symptoms, contact our office at [phone] and ask to speak with anurse. After hours, you can call doctors registry at [phone] OR call [facility] at [phone] ask to have the doctor manager compensation paged. If you consider this an emergency, dial 9-6-4 or go to your nearest emergency department. NEED HELP? Are you dealing with a violent or abusive relationship? Are you a victim of rape or sexual assult? Call [facility] ([facility] 24 hour Crisis Hotline: 618.308.8136 or 884-027-4941. MANUAL Your Guide to a Healthy manual is now on-line. Visit [email or web address] to download your free copy documented in this encounterR[facility]03-12-2024 Miscellaneous Notes* Quick Notes - Gemma Reaves MD - 05/18/2023 10:25 AM EDT RR- VB No. LOF No. CTXS No. Movement: present. Other c/o: No. Medication list reviewed. Physical Exam See Flow Sheet Abd: soft, nontender, gravid Ext: edema: no A/P 36w4d Estimated Date of Delivery: 06/11/23 GBS f/u weekly kick counts BS log reviewed, normal. Does not need to check anymore . Gemma Reaves M.D. documented in this encounterR[facility]03-12-2024 Instructions* Patient Instructions* Mamie Olivarez MA - 05/18/2023 10:01 AM EDT SEQUENTIAL SCREENINGS [facility] offers sequential screenings for women who are interested in screenings for chromosomal abnormalities and certain defects during a . The sequential screen combinesultrasound and blood tests to determine the risk of chromosomal abnormalities, including Down's Syndrome (Trisomy 21) and Trisomy 18, as well as open neural tube defects including spina bifida. Ultrasound examination is performed between 11 weeks and 13 weeks gestational age. Blood tests are drawn after the ultrasound and again later in the between 15 and 21 weeks gestational age. Please let your physician know if you are interested in this testing. It will require an appointment withour imaging technician. This is not an ultrasound performed by a physician in our office during a routine visit. SIGNS AND SYMPTOMS OF LABOR 1. Contractions every 10 minutes or more often 2. Clear, pink, or brownish fluid (water) leaking from vagina 3. Feeling that baby is pushing down, pressure 4. Low, dull backache 5. Cramps that feel like a period 6. Cramps with or without diarrhea If you notice any of the above symptoms, contact our office at [phone] and ask to speak with anurse. After hours, you can call doctors registry at [phone] OR call [facility] at [phone] ask to have the doctor manager compensation paged. If you consider this an emergency, dial 9-1-6 or go to your nearest emergency department. NEED HELP? Are you dealing with a violent or abusive relationship? Are you a victim of rape or sexual assult? Call [facility] ([place]) 24 hour Crisis Hotline: 917.385.2372 or 982-016-7169. MANUAL Your Guide to a Healthy manual is now on-line. Visit [email or web address] to download your free copy documented in this encounterRivers[facility]02-27-2024 Miscellaneous Notes* Telephone Encounter - Kari Mane MD - 05/04/2023 10:36 AM EST Patient had visit today. Kari Mane MD * Telephone Encounter - Marium Patel, ELIEL - 05/03/2023 1:17 PM EST 34w3d Patient has OB visit with IRWIN on 05/04 documented in this encounterRiverside [facility] Hospital02-27-2024 Miscellaneous Notes* Quick Notes - Kari Mane MD - 05/04/2023 9:54 AM EST KJ - VB No. LOF No. CTXS No. Movement: present. Other c/o: No. Medication list reviewed. Physical Exam See Flow Sheet Gen: no accute distress, well appearing Abd: soft, nontender, gravid A/P 34w4d Estimated Date of Delivery: 06/11/23 Elevated 1hr GTT - declines 3hr and plans to start checking her BS. Anemia - continue iron & PNV PTL precautions reviewed, Kick counts reviewed. Kari Mane MD documented in this encounterR[facility]02-27-2024 Instructions* Patient Instructions* Marah Snyder MA - 05/04/2023 9:46 AM EST SEQUENTIAL SCREENINGS [facility] offers sequential screenings for women who are interested in screenings for chromosomal abnormalities and certain defects during a . The sequential screen combinesultrasound and blood tests to determine the risk of chromosomal abnormalities, including Down's Syndrome (Trisomy 21) and Trisomy 18, as well as open neural tube defects including spina bifida. Ultrasound examination is performed between 11 weeks and 13 weeks gestational age. Blood tests are drawn after the ultrasound and again later in the between 15 and 21 weeks gestational age. Please let your physician know if you are interested in this testing. It will require an appointment withour imaging technician. This is not an ultrasound performed by a physician in our office during a routine visit. SIGNS AND SYMPTOMS OF LABOR 1. Contractions every 10 minutes or more often 2. Clear, pink, or brownish fluid (water) leaking from vagina 3. Feeling that baby is pushing down, pressure 4. Low, dull backache 5. Cramps that feel like a period 6. Cramps with or without diarrhea If you notice any of the above symptoms, contact our office at [phone] and ask to speak with anurse. After hours, you can call doctors registry at [phone] OR call [facility] at [phone] ask to have the doctor manager compensation paged. If you consider this an emergency, dial 9-1-7 or go to your nearest emergency department. NEED HELP? Are you dealing with a violent or abusive relationship? Are you a victim of rape or sexual assult? Call [facility] ([facility] 24 hour Crisis Hotline: 833.875.6640 or 283-017-6099. MANUAL Your Guide to a Healthy manual is now on-line. Visit [email or web address] to download your free copy documented in this encounterRivers[facility] Hospital02-13-2024 Miscellaneous Notes* Telephone Encounter - Johnna Perez LPN - 04/20/2023 1:05 PM EST Message viewed per pt. Johnna Perez LPN * Telephone Encounter - Johnna Perez LPN - 04/20/2023 10:47 AM EST Please see pt's [place] message and advise further. Johnna Perez LPN * Telephone Encounter - Siomara Lanza APRN.MARKETING DEVELOPMENT SPECIALIST - 04/20/2023 10:44 AM EST Needs reviewed by an OB provider. Siomara Lanza APRN.MARKETING DEVELOPMENT SPECIALIST * Telephone Encounter - Johnna Perez LPN - 04/20/2023 10:29 AM EST Please see pt's [place] message and further advise. Johnna Perez LPN documented in this encounterR[facility]24 Miscellaneous Notes* Quick Notes - Gemma Reaves MD - 04/20/2023 9:40 AM EST RR- VB No. LOF No. CTXS No. Movement: present. Other c/o: No. Medication list reviewed. Physical Exam See Flow Sheet Abd: soft, nontender, gravid Ext: edema: Trace A/P 32w4d Estimated Date of Delivery: 06/11/23 Labs: 3 hr gtt today, vomited after last attempt, if vomits again will not reattempt anemia- taking fe f/u in 2 weeks or prn Gemma Reaves M.D. documented in this encounterR[facility]02-13-2024 Instructions* Patient Instructions* Margarita Gibbs Ma - 04/20/2023 9:33 AM EST SEQUENTIAL SCREENINGS [facility] offers sequential screenings for women who are interested in screenings for chromosomal abnormalities and certain defects during a . The sequential screen combinesultrasound and blood tests to determine the risk of chromosomal abnormalities, including Down's Syndrome (Trisomy 21) and Trisomy 18, as well as open neural tube defects including spina bifida. Ultrasound examination is performed between 11 weeks and 13 weeks gestational age. Blood tests are drawn after the ultrasound and again later in the between 15 and 21 weeks gestational age. Please let your physician know if you are interested in this testing. It will require an appointment withour imaging technician. This is not an ultrasound performed by a physician in our office during a routine visit. SIGNS AND SYMPTOMS OF LABOR 1. Contractions every 10 minutes or more often 2. Clear, pink, or brownish fluid (water) leaking from vagina 3. Feeling that baby is pushing down, pressure 4. Low, dull backache 5. Cramps that feel like a period 6. Cramps with or without diarrhea If you notice any of the above symptoms, contact our office at [phone] and ask to speak with anurse. After hours, you can call doctors registry at [phone] OR call [facility] at [phone] ask to have the doctor manager compensation paged. If you consider this an emergency, dial 9-1-5 or go to your nearest emergency department. NEED HELP? Are you dealing with a violent or abusive relationship? Are you a victim of rape or sexual assult? Call [facility] [place] ([facility] 24 hour Crisis Hotline: 772.853.2849 or 524-260-0548. MANUAL Your Guide to a Healthy manual is now on-line. Visit [email or web address] to download your free copy documented in this encounterRiverside [facility] Hospital02-05-2024 Miscellaneous Notes* Telephone Encounter - Christal Lane RN - 04/12/2023 9:29 AM EST 31w3d today. Next visit 04/20 with RR. documented in this encounterRiverside [facility] Hospital12-12-2023 Miscellaneous Notes* Quick Notes - Siomara Lanza APRN.CNP - 02/16/2023 2:57 PM EST RM-Pt doing well. Denies vaginal Bleeding, Leaking fluid, or regular Contractions. Pt reports good movement Physical Exam: Gen: no apparent distress Abd: soft, Gravid. Non tender to palpation. See flow sheet RTO 4 weeks, GCT for next visit. Siomara Lanza APRN.MARKETING DEVELOPMENT SPECIALIST documented in this encounterRiverside [facility] Hospital12-12-2023 Instructions* Patient Instructions* Brandon Gilman Cma - 02/16/2023 2:30 PM EST SEQUENTIAL SCREENINGS [facility] offers sequential screenings for women who are interested in screenings for chromosomal abnormalities and certain defects during a . The sequential screen combinesultrasound and blood tests to determine the risk of chromosomal abnormalities, including Down's Syndrome (Trisomy 21) and Trisomy 18, as well as open neural tube defects including spina bifida. Ultrasound examination is performed between 11 weeks and 13 weeks gestational age. Blood tests are drawn after the ultrasound and again later in the between 15 and 21 weeks gestational age. Please let your physician know if you are interested in this testing. It will require an appointment withour imaging technician. This is not an ultrasound performed by a physician in our office during a routine visit. SIGNS AND SYMPTOMS OF LABOR 1. Contractions every 10 minutes or more often 2. Clear, pink, or brownish fluid (water) leaking from vagina 3. Feeling that baby is pushing down, pressure 4. Low, dull backache 5. Cramps that feel like a period 6. Cramps with or without diarrhea If you notice any of the above symptoms, contact our office at [phone] and ask to speak with anurse. After hours, you can call [facility] at [phone] OR call [facility] at [phone] ask to have the doctor manager compensation paged. If you consider this an emergency, dial 9-1-1 or go to your nearest emergency department. NEED HELP? Are you dealing with a violent or abusive relationship? Are you a victim of rape or sexual assult? Call [facility] ([place]) 24 hour Crisis Hotline: 417.378.4521 or 613-820-0432. MANUAL Your Guide to a Healthy manual is now on-line. Visit [email or web address] to download your free copy documented in this encounterRiverside [facility] Hospital11-21-2023 Miscellaneous Notes* Telephone Encounter - Christal Lane RN - 01/26/2023 12:39 PM EST Patient notified. She plans to get blood work done on 01/29/23. She had to go straight to work after last appointments. Christal Lane RN * Telephone Encounter - Ny Cruz RN - 01/26/2023 12:28 PM EST Left message for patient to return phone call. Patient saw IRWIN on 12/22 and had told her to go to lab for 2nd trimester screen-see documentation on visit if pt has questions. It was not drawn on subsequent visit as well. Please ask patient if she wants to have it done and if she does discuss time limits for draw. documented in this encounterRiverside [facility] Hospital11-16-2023 Miscellaneous Notes* Telephone Encounter - Christal Lane RN - 01/21/2023 3:42 PM EST u/s scheduled. Please attach order to appointment once filed. Christal Lane RN * Telephone Encounter - Mauricio Nicole RN - 01/21/2023 3:27 PM EST Left message for patient to call office to schedule f/u anantomy. Please file order. MAURICIO NICOLE RN * Telephone Encounter - Mauricio Nicole RN - 01/21/2023 3:27 PM EST ----- Message from Kari Mane MD sent at 01/21/2023 12:01 PM EST ----- Return 4 weeks to complete anatomic survey Kari Mane MD documented in this encounterRiverside [facility] Hospital11-15-2023 Miscellaneous Notes* Quick Notes - Gemma Reaves MD - 01/20/2023 2:48 PM EST RR- VB No. LOF No. CTXS No. Movement: present. Other c/o: No. Medication list reviewed. Physical Exam See Flow Sheet Gen: no accute distress, well appearing A/P 19w5d Estimated Date of Delivery: 06/11/23 second part of sequential today Anatomy US done today, results pending. F/u in 4 weeks or prn. . Gemma Reaves M.D. documented in this encounterRiverside [facility] Hospital11-15-2023 Instructions* Patient Instructions* Margarita Gibbs Ma - 01/20/2023 2:14 PM EST SEQUENTIAL SCREENINGS [facility] offers sequential screenings for women who are interested in screenings for chromosomal abnormalities and certain defects during a . The sequential screen combinesultrasound and blood tests to determine the risk of chromosomal abnormalities, including Down's Syndrome (Trisomy 21) and Trisomy 18, as well as open neural tube defects including spina bifida. Ultrasound examination is performed between 11 weeks and 13 weeks gestational age. Blood tests are drawn after the ultrasound and again later in the between 15 and 21 weeks gestational age. Please let your physician know if you are interested in this testing. It will require an appointment withour imaging technician. This is not an ultrasound performed by a physician in our office during a routine visit. SIGNS AND SYMPTOMS OF LABOR 1. Contractions every 10 minutes or more often 2. Clear, pink, or brownish fluid (water) leaking from vagina 3. Feeling that baby is pushing down, pressure 4. Low, dull backache 5. Cramps that feel like a period 6. Cramps with or without diarrhea If you notice any of the above symptoms, contact our office at [phone] and ask to speak with anurse. After hours, you can call doctors registry at [phone] OR call [facility] at [phone] ask to have the doctor manager compensation paged. If you consider this an emergency, dial 1-2-3 or go to your nearest emergency department. NEED HELP? Are you dealing with a violent or abusive relationship? Are you a victim of rape or sexual assult? Call [facility] ([place]) 24 hour Crisis Hotline: 346.428.6022 or 972-479-5976. MANUAL Your Guide to a Healthy manual is now on-line. Visit [email or web address] to download your free copy documented in this encounterRiverside [facility] Hospital10-17-2023 Miscellaneous Notes* Quick Notes - Kari Mane MD - 12/22/2022 2:49 PM EDT KJ - VB No. LOF No. CTXS No. Movement: present. Other c/o: No. Medication list reviewed. Physical Exam See Flow Sheet Gen: no accute distress, well appearing Abd: soft, nontender, gravid A/P 15w4d Estimated Date of Delivery: 06/11/23 2nd trimester screen today Anatomy US ordered Kari Mane MD documented in this encounterRiverside Methodist Hospital10-17-2023 Instructions* Patient Instructions* Marah Snyder MA - 12/22/2022 2:36 PM EDT SEQUENTIAL SCREENINGS [facility] offers sequential screenings for women who are interested in screenings for chromosomal abnormalities and certain defects during a . The sequential screen combinesultrasound and blood tests to determine the risk of chromosomal abnormalities, including Down's Syndrome (Trisomy 21) and Trisomy 18, as well as open neural tube defects including spina bifida. Ultrasound examination is performed between 11 weeks and 13 weeks gestational age. Blood tests are drawn after the ultrasound and again later in the between 15 and 21 weeks gestational age. Please let your physician know if you are interested in this testing. It will require an appointment withour imaging technician. This is not an ultrasound performed by a physician in our office during a routine visit. SIGNS AND SYMPTOMS OF LABOR 1. Contractions every 10 minutes or more often 2. Clear, pink, or brownish fluid (water) leaking from vagina 3. Feeling that baby is pushing down, pressure 4. Low, dull backache 5. Cramps that feel like a period 6. Cramps with or without diarrhea If you notice any of the above symptoms, contact our office at [phone] and ask to speak with anurse. After hours, you can call doctors registry at [phone] OR call [facility] at [phone] ask to have the doctor manager compensation paged. If you consider this an emergency, dial 5-8-7 or go to your nearest emergency department. NEED HELP? Are you dealing with a violent or abusive relationship? Are you a victim of rape or sexual assult? Call [facility] ([place]) 24 hour Crisis Hotline: 356.858.7251 or 433-071-1923. MANUAL Your Guide to a Healthy manual is now on-line. Visit [email or web address] to download your free copy documented in this encounterRiverside [facility] Hospital10-03-2023 Miscellaneous Notes* Telephone Encounter - Siomara Lanza APRN.CNP - 12/08/2022 9:27 AM EDT Orders filed. Siomara Lanza APRN.CNP * Telephone Encounter - Marium Patel RN - 12/08/2022 8:54 AM EDT Please file. documented in this encounterRiverside [facility] Hospital09-21-2023 Miscellaneous Notes* Telephone Encounter - Jazmine Burch LPN - 11/26/2022 12:27 PM EDT Patient notified * Telephone Encounter - Johnna Perez LPN - 11/26/2022 11:18 AM EDT Message left asking pt to contact the office for results and instructions. Copy to L&D when allNOB labs completed. Johnna Perez LPN * Telephone Encounter - Siomara Lanza APRN.CNP - 11/26/2022 7:01 AM EDT GBS +urine, RX sent. Please add to OB record. Siomara Lanza APRN.CNP documented in this encounterRiverside [facility] Hospital08-22-2022 History of Present illness Narrative* Siomara Lanza APRN.CNP - 10/27/2021 8:47 AM EDT Jimmy Lema is a 16 year old female who presents for OCP follow up. HPI: Patient states that she is doing much better on this dosage. Light flow/spotting for 6 days, cramping is minimal Ibuprofen helps. She states that her moods are much better she is not crying all the time and her acne has improved, also she is not nauseated and feels like she can eat. She states overall she is doing better. OB History No obstetric history on file. Analysis Intern History LMP: 10/21/2021, Having periods Age at Menarche: Age at First : Age at Menopause: Analysis Intern History Comments: Sexual Activity: Never; No partner data on record Contraception: No contraception data on record History reviewed. No pertinent past medical history. No past surgical history on file. No family history on file. Social History Tobacco Use Smoking status: Never Smokeless tobacco: Never Vaping Use Vaping Use: Never used Substance Use Topics Alcohol use: Never Drug use: Never Current Outpatient Medications Medication Sig norgestimate 0.25 mg-ethinyl estradiol 35 mcg (SPRINTEC) 0.25-35 mg-mcg per tablet Take 1 tablet bymouth once daily. multivitamin-ferrous sulfate 18 mg iron tab Take 1 tablet by mouth once daily. No current facility-administered medications for this visit. Allergies As of Date: 10/27/2021 (No Known Allergies) Fully Assessed 10/27/2021 REVIEW OF SYSTEMS Abdomen: No bloating, early satiety, indigestion, or increased flatulence. No abdominal pain, nausea, vomiting, diarrhea, or constipation. Expanded ROS: N/A Allergies and current medication updated:Yes EXAM: BP 82/62 Wt 116 lb 6.4 oz (52.8kg) LMP 10/21/2021 GENERAL: pleasant, female in no apparent distress HEENT: Normocephalic, atraumatic, mucus membranes moist, and no lesions CHEST: Normal inspiratory effort NEURO: alert and oriented x3,exam grossly non-focal ASSESSMENT/PLAN: 1. Encounter for surveillance of contraceptive pills - ICD9: V25.41, ICD10: Z30.41 - RX for Sprintec given today. - discussed with patient on how to take OCP's. - counseled on benefits, risks and possible severe side effects of OCP's. - discussed need to use Condoms to help to prevent STD's including HIV etc. - follow up in 1 year or sooner if needed. Siomara Lanza, [place] I spent a total of 20 minutes on the date of the service which included preparing to see the patient, [id number] patient care, completing clinical documentation, obtaining and/or reviewing separately obtained history, counseling and educating the patient/family/caregiver, and ordering medications, tests, or procedures. documented in this encounterRiverside [facility] Hospital08-19-2022 Miscellaneous Notes* Telephone Encounter - Darline Lehman RN - 10/24/2021 2:18 PM EDT The following approved medications have been transmitted electronically. Requested Prescriptions Signed Prescriptions Disp Refills norgestimate 0.25 mg-ethinyl estradiol 35 mcg (SPRINTEC) 0.25-35 mg-mcg per tablet 28 tablet 0 Sig: Take 1 tablet by mouth once daily. Authorizing Provider: SIOMARA LANZA Pharmacy Information Pharmacy Address [phone], [place] [id number] Darline Lehman RN * Telephone Encounter - Christal Lane RN - 10/24/2021 1:15 PM EDT Patient has OCP f/u appointment on 10/27/21, but needs refill today. Requested Prescriptions Pending Prescriptions Disp Refills norgestimate 0.25 mg-ethinyl estradiol 35 mcg (SPRINTEC) 0.25-35 mg-mcg per tablet 28 tablet 3 Sig: Take 1 tablet by mouth once daily. RX INSTRUCTIONS: Patient aware RX will be sent to pharmacy. No need to notify patient. Christal Lane RN documented in this encounterRiverside [facility] Hospital04-26-2022 History of Present illness Narrative* Siomara Lanza APRN.CNP - 07/01/2021 12:49 PM EDT This 16 year old female was started on BCPs and is here for follow-up. States she is compliant. She states that she has been very emotional, crying daily, hol[place], bloated,and acne is worse since starting. Period are regular lasting 5 days with less cramping. Denies abdominal pain, chest pain or headache. No pain or swelling in the legs. No other neurologicor pulmonary symptoms. Patient's last menstrual period was 06/04/2021. Menstruation / History: No intermenstrual bleeding, spotting or discharge. Last 1 Encounter BP Readings: Date: BP: 05/06/2021 110/60 EXAMINATION: Not Done ASSESSMENT/PLAN: Doing well on current BCP ORDERS: Office Visit on 07/01/21 norgestimate 0.25 mg-ethinyl estradiol 35 mcg (SPRINTEC) 0.25-35 mg-mcg per tablet DIAGNOSIS: (Z30.41) Encounter for surveillance of contraceptive pills (primary encounter diagnosis) RTC: 3 months Siomara Lanza APRN.[place] I spent a total of 25 minutes on the date of the service which included preparing to see the patient, [id number] patient care, completing clinical documentation, obtaining and/or reviewing separately obtained history, counseling and educating the patient/family/caregiver and ordering medications, tests, or procedures. [facility]* Diagnosis Encounter for surveillance of contraceptive pills- Primary Surveillance of previously prescribed contraceptive pill documented in this encounter [facility]* Diagnosis Encounter for surveillance of contraceptive pills- Primary Surveillance of previously prescribed contraceptive pill documented in this encounter [facility] note* Diagnosis GBS bacteriuria [facility]* Diagnosis Nuchal translucency of fetus on ultrasound- Primary Abnormal findings on screening documented in this encounter [facility] note* Diagnosis 15 weeks gestation of - Primary state, incidental Encounter for care in first trimester of first documented in this encounter [facility] note* Diagnosis 19 weeks gestation of - Primary state, incidental Encounter for supervision of normal first in second trimester Supervision of normal first [facility]* Diagnosis Encounter for anatomic survey- Primary Encounter for care in first trimester of first 19 weeks gestation of state, incidental documented in this encounter [facility]* Diagnosis Supervision of high risk in second trimester- Primary Unspecified high-risk documented in this encounter [facility] note* Diagnosis Supervision of high risk in second trimester- Primary Unspecified high-risk 23 weeks gestation of state, incidental [facility]* Diagnosis Encounter for follow-up ultrasound of anatomy- Primary 23 weeks gestation of state, incidental [facility]* Diagnosis Abnormal glucose in , antepartum- Primary Abnormal maternal glucose tolerance, antepartum [facility]* Diagnosis Supervision of high risk in third trimester- Primary Unspecified high-risk Abnormal glucose in , antepartum Abnormal maternal glucose tolerance, antepartum 32 weeks gestation of state, incidental [facility]* Diagnosis Abnormal glucose tolerance in [facility]* Diagnosis 34 weeks gestation of - Primary state, incidental Abnormal glucose tolerance in Supervision of high risk in third trimester Unspecified high-risk [facility]* Diagnosis 36 weeks gestation of - Primary state, incidental Supervision of high risk in third trimester Unspecified high-risk [facility]* Diagnosis Supervision of high risk in third trimester- Primary Unspecified high-risk Abnormal glucose tolerance in 37 weeks gestation of state, incidental [facility]* Diagnosis 38 weeks gestation of - Primary state, incidental Supervision of high risk in third trimester Unspecified high-risk [facility]* Diagnosis Supervision of high risk in third trimester- Primary Unspecified high-risk 39 weeks gestation of state, incidental Abnormal glucose tolerance in Anemia complicating , third trimester [facility]* Diagnosis Onset Date Resolution Status 40 weeks gestation of acute Anemia affecting a cute Encounter for elective induction of labor acute GBS bacteriuria acute High risk teen acu te History of elevated glucose acute (spontaneous vaginal delivery) acute [facility] Work Phone: Evaluation note* Diagnosis care and examination- Primary Routine follow-up Abnormal glucose affecting Constipation, unspecified constipation type Sacral mass Disorders of sacrum documented [facility] this [facility]* Diagnosis UTI symptoms- Primary Other symptoms involving urinary system [facility] Diagnosis 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 note* Diagnosis Nodule of soft tissue- Primary Other disorders of soft tissue documented in this encounter [facility] note* Diagnosis with fetus of unknown gestational age (HCC)- Primary 17 weeks gestation of ([facility]) state, incidental Short interval between pregnancies affecting in second trimester, antepartum (HCC) Late care ([facility]) Insufficient care Encounter for supervision of high risk in second trimester, antepartum ([facility]) Alcohol consumption during in first trimester ([facility]) documented in this encounter [facility]* Diagnosis Encounter for anatomic survey ([facility])- Primary Encounter for anatomic survey 19 weeks gestation of ([facility]) state, incidental documented in this encounter [facility]* Diagnosis Encounter for supervision of high risk in second trimester, antepartum ([facility])- Primary 19 weeks gestation of ([facility]) state, incidental Short interval between pregnancies affecting in second trimester, antepartum ([facility]) Rubella non-immune status, antepartum ([facility]) Other specified complication, antepartum documented in this encounter [facility] note* Diagnosis Screening for diabetes mellitus- Primary 23 weeks gestation of ([facility]) state, incidental Late care ([facility]) Insufficient care Encounter for supervision of high risk in second trimester, antepartum ([facility]) Short interval between pregnancies affecting in second trimester, antepartum ([facility]) documented in this encounter [facility] note* Diagnosis Rubella non-immune status, antepartum ([facility])- Primary Other specified complication, antepartum [facility]* Diagnosis Diarrhea, unspecified type- Primary documented in this encounter [facility] note* Diagnosis Supervision of high risk in third trimester (HCC)- Primary Unspecified high-risk Late care (HCC) Insufficient care Screening for diabetes mellitus Limited care in third trimester (HCC) 31 weeks gestation of (HCC) state, incidental [facility] noteNo assessment information availableWMercy [facility] Work Phone: Reason for referral (narrative)* Diagnostic Procedure Only (Routine) - Authorized Specialty Diagnoses / Procedures Referred By Papoac t Referred To Contact [facility] Diagnoses 15 weeks gestation of Encounter for care in first trimester of first Procedures OBSTETRIC ULTRASOUND WHI US PREG UTERUS AFTER 1ST TRIMEST GESTATION Kari Mane MD [address] [place] [address] [facility] [address] [place] [address] Referral ID Status Reason Start Date Expiration Date Visits Requested Visits Authorized [id number] Authorized Auto-Generat ed Referral 3 12/22/2023 1 1 [facility] for referral (narrative)* Diagnostic Procedure Only (Routine) - Authorized Specialty Diagnoses / Procedures Referred By Leeann lane Referred To Contact [facility] Diagnoses Supervision of high risk in second trimester Procedures OBSTETRIC ULTRASOUND WHI US PREG UTERUS AFTER 1ST TRIMEST GESTATION Kari Mane MD [address] [place] [address] [facility] [address] [place] [address] Referral ID Status Reason Start Date Expiration Date Visits Requested Visits Authorized [id number] Authorized Auto-Generat ed Referral 3 01/21/2024 1 1 [facility] for referral (narrative)* Diagnostic Procedure Only (Routine) - Closed Specialty Diagnoses / Procedures Referred By Papoac t Referred To Contact [facility] IMAG[facility] Diagnoses Bony abnormality Procedures XR SACRUM/COCCYX 3V AP/LAT RADEX SACRUM & COCCYX MINIMUM 2 VIEWS Diana Velazquez PA-C [address] [place] [address] [place] [address] Referral ID Status Reason Start Date Expiration Date V isits Requested Visits Authorized [id number] Closed Auto-Generate d Referral 04/05/2024 05/05/2025 1 1 [facility] for referral (narrative)* Diagnostic Procedure Only (Routine) - New Request Specialty Diagnoses / Procedures Referred By Contac t Referred To Contact XR IMAGING Diagnoses Bony abnormality Procedures XR LUMBAR GENERAL 3V AP/LAT/L5-S1 RADEX SPINE LUMBOSACRAL 2/3 VIEWS Diana Velazquez PA-C [address] [place] [address] [place] [address] Referral ID Status Reason Start Date Expiration Date Visits Requested Visits Authorized [id number] New Request Auto-Generat ed Referral 04/14/2024 05/14/2025 1 1 * Consult, Test, Treat (Routine) - Authorized Specialty Diagnoses / Procedures Referred By Contac t Referred To Contact [facility] Diagnoses Bony abnormality Procedures CONSULT TO [facility] OFFICE/OUTPATIENT NEW HIGH MDM 60 MINUTES Diana Velazquez PA-C [address] [place] [address] Referral ID Status Reason Start Date Expiration Date Visits Requested Visits Authorized [id number] Authorized PCP Requested Referral 04/14/2024 04/14/2025 1 1 [facility] for referral (narrative)No reason for referral information availableWMercy Health [facility] Work Phone: Reqtcc for visit Narrative* Diagnostic Procedure Only (Routine) - Closed Specialty Diagnoses / Procedures Referred By Contac t Referred To Contact XR IMAGING Diagnoses Bony abnormality Procedures XR SACRUM/COCCYX 3V AP/LAT RADEX SACRUM & COCCYX MINIMUM 2 VIEWS Diana Velazquez PA-C [address] [place] [address] [place] [address] Referral ID Status Reason Start Date Expiration Date V isits Requested Visits Authorized [id number] Closed Auto-Generate d Referral 04/05/2024 05/05/2025 1 1 [facility] Concerns Problem Noted Date Diagnosed Date [facility] Education - COMMON 12/09/2022 Problem Noted Date Diagnosed Date [facility] Education - COMMON 12/09/2022 Problem Noted Date Diagnosed Date [facility] CC Education - COMMON 12/09/2022 Problem Noted Date Diagnosed Date [facility] CC Education - COMMON 12/09/2022 Problem Noted Date Diagnosed Date [facility] Education - COMMON 12/09/2022 Problem Noted Date Diagnosed Date [facility] CC Education - COMMON 12/09/2022 Problem Noted Date Diagnosed Date [facility] CC Education - COMMON 12/09/2022 Problem Noted Date Diagnosed Date [facility] CC Education - COMMON 12/09/2022 Problem Noted Date Diagnosed Date [facility] CC Education - COMMON 12/09/2022 Active Problems Noted Date Diagnosed Date [facility] CC Education - COMMON 12/09/2022 Active Problems Noted Date Diagnosed Date [facility] CC Education - COMMON 12/09/2022 Active Problems Noted Date Diagnosed Date [facility] CC Education - COMMON 12/09/2022 Active Problems Noted Date Diagnosed Date [facility] CC Education - COMMON 12/09/2022 Active Problems Noted Date Diagnosed Date [facility] CC Education - COMMON 12/09/2022 Active Problems Noted Date Diagnosed Date [facility] CC Education - COMMON 12/09/2022 Chief Complaint and Reason for Visit Chief Complaint VAGINAL DELIVERY Reason for Visit 40 weeks gestation o f Anemia affecting Encounter for elective induction of labor GBS bacteriuria High risk teen History of elevated glucose (spontaneous vaginal delivery) Chief Complaint Admit Date R/O PRE TERM LABOR October 10, 2024 3:1 2pm Advance Directives Advance Directive Response Recorded Date/ Time Living Will No June 16, 2023 7:40pm Power of Melon Packer No June 15 7:40pm Summary Purpose Family History No Family History Records FoundNo Family History Records Found Reason for Referral Specialty Diagnoses / Procedures Referred By Leeann lane Referred To Contact [facility] Diagnoses Bony abnormality Transitional vertebrae Procedures CONSULT TO SPORTS MEDICINE OFFICE/OUTPATIENT [facility] 60 MINUTES Diana Velazquez PA-C [address] [place] [address] Referral ID Status Reason Start Date Expiration Date Visits Requested Visits Authorized [id number] Authorized PCP Requested Referral 04/07/2024 04/07/2025 1 1 Additional Source Comments Source Comments (unrecognize d section and content) In the event this informatio n is protected by the Federal Confidentiality of Alcohol and Drug Abuse Patient Records regulations: The Federal rules restrict any use of the information to criminally investigate or prosecute any alcohol or drug abuse patient.[facility] HospitalIn the event this information is protected by the Federal Confidentiality of Alcohol and Drug Abuse Patient Records regulations: The Federal rules restrict any use of the information to criminally investigate or prosecute any alcohol or drug abuse patient.[facility] HospitalIn the event this information is protected by the Federal Confidentiality of Alcohol and Drug Abuse Patient Records regulations: The Federal rules restrict any use of the information to criminally investigate or prosecute any alcohol or drug abuse patient.[facility] HospitalIn the event this information is protected by the Federal Confidentiality of Alcohol and Drug Abuse Patient Records regulations: The Federal rules restrict any use of the information to criminally investigate or prosecute any alcohol or drug abuse patient.[facility] HospitalIn the event this information is protected by the Federal Confidentiality of Alcohol and Drug Abuse Patient Records regulations: The Federal rules restrict any use of the information to criminally investigate or prosecute any alcohol or drug abuse patient.[facility] HospitalIn the event this information is protected by the Federal Confidentiality of Alcohol and Drug Abuse Patient Records regulations: The Federal rules restrict any use of the information to criminally investigate or prosecute any alcohol or drug abuse patient.[facility] HospitalIn the event this information is protected by the Federal Confidentiality of Alcohol and Drug Abuse Patient Records regulations: The Federal rules restrict any use of the information to criminally investigate or prosecute any alcohol or drug abuse patient.[facility] HospitalIn the event this information is protected by the Federal Confidentiality of Alcohol and Drug Abuse Patient Records regulations: The Federal rules restrict any use of the information to criminally investigate or prosecute any alcohol or drug abuse patient.[facility] HospitalIn the event this information is protected by the Federal Confidentiality of Alcohol and Drug Abuse Patient Records regulations: The Federal rules restrict any use of the information to criminally investigate or prosecute any alcohol or drug abuse patient.[facility] HospitalIn the event this information is protected by the Federal Confidentiality of Alcohol and Drug Abuse Patient Records regulations: The Federal rules restrict any use of the information to criminally investigate or prosecute any alcohol or drug abuse patient.[facility] HospitalIn the event this information is protected by the Federal Confidentiality of Alcohol and Drug Abuse Patient Records regulations: The Federal rules restrict any use of the information to criminally investigate or prosecute any alcohol or drug abuse patient.[facility] HospitalIn the event this information is protected by the Federal Confidentiality of Alcohol and Drug Abuse Patient Records regulations: The Federal rules restrict any use of the information to criminally investigate or prosecute any alcohol or drug abuse patient.[facility] HospitalIn the event this information is protected by the Federal Confidentiality of Alcohol and Drug Abuse Patient Records regulations: The Federal rules restrict any use of the information to criminally investigate or prosecute any alcohol or drug abuse patient.[facility] HospitalIn the event this information is protected by the Federal Confidentiality of Alcohol and Drug Abuse Patient Records regulations: The Federal rules restrict any use of the information to criminally investigate or prosecute any alcohol or drug abuse patient.[facility] HospitalIn the event this information is protected by the Federal Confidentiality of Alcohol and Drug Abuse Patient Records regulations: The Federal rules restrict any use of the information to criminally investigate or prosecute any alcohol or drug abuse patient.[facility] HospitalIn the event this information is protected by the Federal Confidentiality of Alcohol and Drug Abuse Patient Records regulations: The Federal rules restrict any use of the information to criminally investigate or prosecute any alcohol or drug abuse patient.[facility] HospitalIn the event this information is protected by the Federal Confidentiality of Alcohol and Drug Abuse Patient Records regulations: The Federal rules restrict any use of the information to criminally investigate or prosecute any alcohol or drug abuse patient.[facility] HospitalIn the event this information is protected by the Federal Confidentiality of Alcohol and Drug Abuse Patient Records regulations: The Federal rules restrict any use of the information to criminally investigate or prosecute any alcohol or drug abuse patient.[facility] HospitalIn the event this information is protected by the Federal Confidentiality of Alcohol and Drug Abuse Patient Records regulations: The Federal rules restrict any use of the information to criminally investigate or prosecute any alcohol or drug abuse patient.[facility] HospitalIn the event this information is protected by the Federal Confidentiality of Alcohol and Drug Abuse Patient Records regulations: The Federal rules restrict any use of the information to criminally investigate or prosecute any alcohol or drug abuse patient.[facility] HospitalIn the event this information is protected by the Federal Confidentiality of Alcohol and Drug Abuse Patient Records regulations: The Federal rules restrict any use of the information to criminally investigate or prosecute any alcohol or drug abuse patient.[facility] HospitalIn the event this information is protected by the Federal Confidentiality of Alcohol and Drug Abuse Patient Records regulations: The Federal rules restrict any use of the information to criminally investigate or prosecute any alcohol or drug abuse patient.[facility] HospitalIn the event this information is protected by the Federal Confidentiality of Alcohol and Drug Abuse Patient Records regulations: The Federal rules restrict any use of the information to criminally investigate or prosecute any alcohol or drug abuse patient.[facility] HospitalIn the event this information is protected by the Federal Confidentiality of Alcohol and Drug Abuse Patient Records regulations: The Federal rules restrict any use of the information to criminally investigate or prosecute any alcohol or drug abuse patient.[facility] HospitalIn the event this information is protected by the Federal Confidentiality of Alcohol and Drug Abuse Patient Records regulations: The Federal rules restrict any use of the information to criminally investigate or prosecute any alcohol or drug abuse patient.[facility] HospitalIn the event this information is protected by the Federal Confidentiality of Alcohol and Drug Abuse Patient Records regulations: The Federal rules restrict any use of the information to criminally investigate or prosecute any alcohol or drug abuse patient.[facility] HospitalIn the event this information is protected by the Federal Confidentiality of Alcohol and Drug Abuse Patient Records regulations: The Federal rules restrict any use of the information to criminally investigate or prosecute any alcohol or drug abuse patient.[facility] HospitalIn the event this information is protected by the Federal Confidentiality of Alcohol and Drug Abuse Patient Records regulations: The Federal rules restrict any use of the information to criminally investigate or prosecute any alcohol or drug abuse patient.[facility] HospitalIn the event this information is protected by the Federal Confidentiality of Alcohol and Drug Abuse Patient Records regulations: The Federal rules restrict any use of the information to criminally investigate or prosecute any alcohol or drug abuse patient.[facility] HospitalIn the event this information is protected by the Federal Confidentiality of Alcohol and Drug Abuse Patient Records regulations: The Federal rules restrict any use of the information to criminally investigate or prosecute any alcohol or drug abuse patient.[facility] HospitalIn the event this information is protected by the Federal Confidentiality of Alcohol and Drug Abuse Patient Records regulations: The Federal rules restrict any use of the information to criminally investigate or prosecute any alcohol or drug abuse patient.[facility] HospitalIn the event this information is protected by the Federal Confidentiality of Alcohol and Drug Abuse Patient Records regulations: The Federal rules restrict any use of the information to criminally investigate or prosecute any alcohol or drug abuse patient.[facility] HospitalIn the event this information is protected by the Federal Confidentiality of Alcohol and Drug Abuse Patient Records regulations: The Federal rules restrict any use of the information to criminally investigate or prosecute any alcohol or drug abuse patient.[facility] HospitalIn the event this information is protected by the Federal Confidentiality of Alcohol and Drug Abuse Patient Records regulations: The Federal rules restrict any use of the information to criminally investigate or prosecute any alcohol or drug abuse patient.[facility] HospitalIn the event this information is protected by the Federal Confidentiality of Alcohol and Drug Abuse Patient Records regulations: The Federal rules restrict any use of the information to criminally investigate or prosecute any alcohol or drug abuse patient.[facility] HospitalIn the event this information is protected by the Federal Confidentiality of Alcohol and Drug Abuse Patient Records regulations: The Federal rules restrict any use of the information to criminally investigate or prosecute any alcohol or drug abuse patient.[facility] HospitalIn the event this information is protected by the Federal Confidentiality of Alcohol and Drug Abuse Patient Records regulations: The Federal rules restrict any use of the information to criminally investigate or prosecute any alcohol or drug abuse patient.[facility] HospitalIn the event this information is protected by the Federal Confidentiality of Alcohol and Drug Abuse Patient Records regulations: The Federal rules restrict any use of the information to criminally investigate or prosecute any alcohol or drug abuse patient.[facility] HospitalIn the event this information is protected by the Federal Confidentiality of Alcohol and Drug Abuse Patient Records regulations: The Federal rules restrict any use of the information to criminally investigate or prosecute any alcohol or drug abuse patient.[facility] HospitalIn the event this information is protected by the Federal Confidentiality of Alcohol and Drug Abuse Patient Records regulations: The Federal rules restrict any use of the information to criminally investigate or prosecute any alcohol or drug abuse patient.[facility] HospitalIn the event this information is protected by the Federal Confidentiality of Alcohol and Drug Abuse Patient Records regulations: The Federal rules restrict any use of the information to criminally investigate or prosecute any alcohol or drug abuse patient.[facility] HospitalIn the event this information is protected by the Federal Confidentiality of Alcohol and Drug Abuse Patient Records regulations: The Federal rules restrict any use of the information to criminally investigate or prosecute any alcohol or drug abuse patient.[facility] HospitalIn the event this information is protected by the Federal Confidentiality of Alcohol and Drug Abuse Patient Records regulations: The Federal rules restrict any use of the information to criminally investigate or prosecute any alcohol or drug abuse patient.[facility] HospitalIn the event this information is protected by the Federal Confidentiality of Alcohol and Drug Abuse Patient Records regulations: The Federal rules restrict any use of the information to criminally investigate or prosecute any alcohol or drug abuse patient.[facility] HospitalIn the event this information is protected by the Federal Confidentiality of Alcohol and Drug Abuse Patient Records regulations: The Federal rules restrict any use of the information to criminally investigate or prosecute any alcohol or drug abuse patient.[facility] Reason for Visit (unrecogniz ed section and content) Reason Comments Medication Problem OCP causing moodines s, crying, bloating and acne Reason Onset Date Comments Refill Request 10/24/2021 Reason Comments Follow Up Sprintec Reason Comments Results Reason Comments Orders Reason Onset Date Comments Care 12/22/2022 Reason Onset Date Comments Care 01/20/2023 Reason Comments US Specialty Diagnoses / Procedures Referred By Leeann lane Referred To Contact [facility] Diagnoses 15 weeks gestation of Encounter for care in first trimester of first Procedures OBSTETRIC ULTRASOUND WHI US PREG UTERUS AFTER 1ST TRIMEST GESTATION Kari Mane MD [address] [place] [address] [address] Referral ID Status Reason Start Date Expiration Date V isits Requested Visits Authorized [id number] Closed Auto-Generate d Referral 12/22/2022 12/22/2023 1 1 Reason Comments Lab Orders Reason Onset Date Comments Care 02/16/2023 Specialty Diagnoses / Procedures Referred By Leeann lane Referred To Contact [facility] Diagnoses Supervision of high risk in second trimester Procedures OBSTETRIC ULTRASOUND WHI US PREG UTERUS AFTER 1ST TRIMEST GESTATION Kari Mane MD [address] [place] [address] [facility] [address] [place] [address] Referral ID Status Reason Start Date Expiration Date V isits Requested Visits Authorized [id number] Closed Auto-Generate d Referral 01/21/2023 01/21/2024 1 1 Reason Onset Date Comments Care 04/20/2023 Reason Onset Date Comments Care 05/04/2023 Reason Onset Date Comments Care 05/18/2023 Reason Onset Date Comments Care 05/25/2023 Reason Onset Date Comments Population Health Navigation Outreach 05/31/2023 Ob/peds Reason Onset Date Comments Care 06/01/2023 Reason Onset Date Comments Care 06/08/2023 Reason Comments Ob Delivery Note Reason Comments Routine Reason Comments Breast Pump Reason Comments Results Reason Comments Lump on lower back Lump lower back sinc e she can remember. When she got it got larger. Sticks out now. Not painful. Hard but doesn't move. Not sure if it has drainage or not. Reason Comments Initial OB Visit Specialty Diagnoses / Procedures Referred By Leeann lane Referred To Contact [facility] Diagnoses with fetus of unknown gestational age (HCC) Procedures OBSTETRIC ULTRASOUND WHI US PREG UTERUS AFTER 1ST TRIMEST GESTATION Gina Kulkarni APRN.[facility] [address] [place] [address] Phone: tel: fax: [facility] [address] [place] [address] Referral ID Status Reason Start Date Expiration Date V isits Requested Visits Authorized [id number] Closed Auto-Generate d Referral 06/28/2024 06/28/2025 1 1 Reason Onset Date Comments Care 07/12/2024 Reason Onset Date Comments Care 08/11/2024 Reason Comments PRAF Reason Comments Diarrhea x 1 week Reason Onset Date Comments Care 10/05/2024 Care Teams (unrecognized sec tion and content) Fitness Director Relationship Specialty Start Date End Date Diana Velazquez PA-C [address] [place] [address] PCP - General Pediatrics 04/30/21 Fitness Director Relationship Specialty Start Date End Date Diana Velazquez PA-C [address] [place] [address] PCP - General Pediatrics 04/30/21 Fitness Director Relationship Specialty Start Date End Date Diana Velazquez PA-C [address] [place] [address] PCP - General Pediatrics 04/30/21 Fitness Director Relationship Specialty Start Date End Date Diana Velazquez PA-C [address] [place] [address] PCP - General Pediatrics 04/30/21 Fitness Director Relationship Specialty Start Date End Date Diana Velazquez PA-C [address] [place] [address] PCP - General Pediatrics 04/30/21 Fitness Director Relationship Specialty Start Date End Date Diana Velazquez PA-C [address] [place] [address] PCP - General Pediatrics 04/30/21 Fitness Director Relationship Specialty Start Date End Date Diana Velazquez PA-C [address] [place] [address] PCP - General Pediatrics 04/30/21 Fitness Director Relationship Specialty Start Date End Date Diana Velazquez PA-C [address] [place] [address] PCP - General Pediatrics 04/30/21 Fitness Director Relationship Specialty Start Date End Date Diana Velazquez PA-C [address] [place] [address] PCP - General Pediatrics 04/30/21 Fitness Director Relationship Specialty Start Date End Date Diana Velazquez PA-C [address] [place] [address] PCP - General Pediatrics 04/30/21 Fitness Director Relationship Specialty Start Date End Date Diana Velazquez PA-C [address] [place] [address] PCP - General Pediatrics 04/30/21 Fitness Director Relationship Specialty Start Date End Date Diana Velazquez PA-C [address] [place] [address] PCP - General Pediatrics 04/30/21 Fitness Director Relationship Specialty Start Date End Date Diana Velazquez PA-C [address] [place] [address] PCP - General Pediatrics 04/30/21 Fitness Director Relationship Specialty Start Date End Date Diana Velazquez PA-C [address] [place] [address] PCP - General Pediatrics 04/30/21 Fitness Director Relationship Specialty Start Date End Date Diana Velazquez PA-C [address] [place] [address] PCP - General Pediatrics 04/30/21 Fitness Director Relationship Specialty Start Date End Date Diana Velazquez PA-C PCP - General Pediatrics 04/30/21 Fitness Director Relationship Specialty Start Date End Date Diana Velazquez PA-C PCP - General Pediatrics 04/30/21 Fitness Director Relationship Specialty Start Date End Date Diana Velazquez PA-C PCP - General Pediatrics 04/30/21 Fitness Director Relationship Specialty Start Date End Date Diana Velazquez PA-C PCP - General Pediatrics 04/30/21 Fitness Director Relationship Specialty Start Date End Date Diana Velazquez PA-C PCP - General Pediatrics 04/30/21 Team Status: Active Member Role Status Dates Dr. Myesha Cooney MD Family Provider Active No Primary Care Physician Primary Care Provider Active Team Status: Inactive Member Role Status Dates No Primary Care Physician Primary Care Provider Active Dr. Marium Stevenson MD Admit Provider, Attending Pro vider Active Fitness Director Relationship Specialty Start Date End Date Diana Velazquez PA-C PCP - General Pediatrics 04/30/21 Fitness Director Relationship Specialty Start Date End Date Diana Velazquez PA-C PCP - General Pediatrics 04/30/21 Fitness Director Relationship Specialty Start Date End Date Diana Velazquez PA-C PCP - General Pediatrics 04/30/21 Fitness Director Relationship Specialty Start Date End Date Diana Velazquez PA-C PCP - General Pediatrics 04/30/21 Fitness Director Relationship Specialty Start Date End Date Diana Velazquez PA-C PCP - General Pediatrics 04/30/21 Fitness Director Relationship Specialty Start Date End Date Diana Velazquez PA-C PCP - General Pediatrics 04/30/21 Fitness Director Relationship Specialty Start Date End Date Diana Velazquez PA-C PCP - General Pediatrics 04/30/21 Fitness Director Relationship Specialty Start Date End Date Diana Velazquez PA-C PCP - General Pediatrics 04/30/21 Fitness Director Relationship Specialty Start Date End Date Diana Velazquez PA-C PCP - General Pediatrics 04/30/21 Fitness Director Relationship Specialty Start Date End Date Diana Velazquez PA-C PCP - General Pediatrics 04/30/21 Fitness Director Relationship Specialty Start Date End Date VelazquezDiana PA-C PCP - General Pediatrics 04/30/21 Fitness Director Relationship Specialty Start Date End Date VelazquezDiana PA-C PCP - General Pediatrics 04/30/21 Fitness Director Relationship Specialty Start Date End Date VelazquezDiana PA-C PCP - General Pediatrics 04/30/21 Fitness Director Relationship Specialty Start Date End Date Diana Velazquez PA-C PCP - General Pediatrics 04/30/21 Team Status: Active Member Role/Relationship Status Dates Dr. Myesha Cooney MD Family Provider Active No Primary Care Physician Primary Care Provider Active Team Status: Inactive Member Role/Relationship Status Dates No Primary Care Physician Primary Care Provider Active Start: October 10, 2024 End: October 10, 2024 Dr. Gemma Reaves MD Attending Provider Active Start: October 10, 2024 End: October 10, 2024 Dr. Gemma Reaves MD Referring Provider Active Start: October 10, 2024 End: October 10, 2024 INFORMATION SOURCE (unrecogn ized section and content) DATE CREATED AUTHOR 12/03/2023 [facility] DATE CREATED AUTHOR AUTHOR'S ORGANIZ ATION 10/07/2024 [facility] Goals (unrecognized section and content) Goals may be documented in a n alternate section FOR RECORDS PERTAINING TO PATIENTS WHO ARE OR HAVE BEEN ENROLLED IN A CHEMICAL DEPENDENCY/SUBSTANCEABUSE PROGRAM, SOME INFORMATION MAY BE OMITTED. This clinical summary was aggregated from multiple sources. Caution should be exercised in using it in the provision of clinical care. This summary normalizes information from multiple sources, and as a consequence, information in this document may materially change the coding, format and clinical context of patient data. In addition, data may be omitted in some cases. CLINICAL DECISIONS SHOULD BE BASED ON THE PRIMARY CLINICAL RECORDS. [facility] [employer] [facility] provides no warranty or guarantee of the accuracy or completeness of information in this document.
--- OUTSIDE RECORDS SUMMARY | 2024-10-14 00:58 | XMS RPT_ITS | CCD ---
Author Organization [facility] Care Team Providers Care Customer Experience Intern Name Role Phone Diana Velazquez PA-C Primary [...] Provider Dr. Gemma Reaves MD Referring Provider [phone] Medications Current Medications Medication Drug Class(es) Dates Sig (Normalized) Sig (Original) amoxicillin 500 mg oral capsule (1 source) Penicillin-class Antibacterial Start: 11-26-2022 End: 12-01-2022 take 1 capsule by mouth three times daily amoxicillin (AMOXIL) 500 mg capsule Take 1 capsule by mouth three times daily for 5 days. 15 capsule 0 11/26/2022 12/01/2022 Active Comment on above: Take [address] [facility] three times daily for 5 days. aspirin [...] unspecified trimester; Translations: [Late care ([facility])] Onset: 06-28-2024 Episodic Residual codes; unclassified (1 source) 17 weeks gestation of ; Translations: [17 weeks gestation of ([facility])] Onset: 06-28-2024 Episodic Results Test Name Value Interpretation Reference Range Facility Bilirubin Test strip Ql (U)O rdered By: Gemma Reaves on 10-10-2024 Bilirubin Ql (U) Negative Negative [facility] Ketones Test strip Ql (U)Ord ered By: Gemma Reaves on 10-10-2024 Ketones Ql (U) Negative Negative [facility] Nitrite Test strip Ql (U)Ord ered By: Gemma Reaves on 10-10-2024 Nitrite Ql (U) Negative Negative [facility] Protein Test strip Ql (U)Ord ered By: Gemma Reaves on 10-10-2024 Protein Ql (U) 100 mg/dl High Negative [facility] Urine clarityOrdered By: Ximena Reaves on 10-10-2024 Clarity (U) Cloudy Clear [facility] Urine color determinationOrd ered By: Gemma Reaves on 10-10-2024 Color (U) Straw Yellow [facility] Urine glucose detectionOrder ed By: Gemma Reaves on 10-10-2024 Glucose Ql (U) Normal mg/dl Normal [facility] Urine leukocyte esterase det ection by dipstickOrdered By: Gemma Reaves on 10-10-2024 Leukocyte esterase Test strip Ql (U) 500 /ul High Negative [facility] Urine pHOrdered By: Gemma Reaves on 10-10-2024 pH (U) 6.5 [pH] 5.0 - 8.0 [facility] Urine specific gravity measu rementOrdered By: Gemma Reaves on 10-10-2024 Specific gravity (U) [Rel density] 1.010 1.002-1.030 [facility] Urine urobilinogen measureme ntOrdered By: Gemma Reaves on 10-10-2024 Urobilinogen Ql (U) Normal mg/dl Normal [facility] CNPNon 10-06-2024 CNPN Telephone (OGFVWE) JIMMY LEMA ([id number]) 3 F Date Time Provider Department 10/06/24 NURSE NATIONAL ACCOUNTS RECRUITER [facility] During your visit today, we recorded the following information about you: Alf Trevino, RN 10/06/2024 12:23 PM Signed 3rd risk assessment form submitted 10/06/24 Alf Trevino RN Allergies As of Date: 10/06/2024 (No Known Allergies) Date Reviewed: 09/17/2024 Reviewed by: Crista Vasquez APRN.PHARMACY HELPER - Fully Assessed Reason for Visit: PRAF [...] Status:Closed by ALF TREVINO on 10/06/24 Normal [facility] URINE OB DIP B/Oon Glucose Ql (U) Negative Neg mg/dL [facility] Interpretation and review of laboratory results Normal [facility] Protein.monoclonal (U) [Mass/Vol] Negative Neg mg/dL [facility] CNOVon 09-17-2024 CNOV Office Visit (WOUCA) JIMMY LEMA ([id number]) 3 F Date Time Provider Department 09/17/24 8:30 AM CRISTA VASQUEZ During your visit today, we recorded the following information about you: Temperature Pulse Respiration Blood pressure 96.9 degrees 94/minute 18/minute 112/62 Weight 56.6 kg Crista Vasquez APRN.PHARMACY HELPER 09/17/2024 8:54 AM Signed This note was created using [employer]. Subjective Jimmy Lema is a 19 year [...] Date Reviewed: 09/17/2024 Reviewed by: Crista Vasquez APRN.PHARMACY HELPER - Fully Assessed Reason for Visit: Diarrhea [...] Encounter Status:Closed by CRISTA [facility]ASQUEZ [facility]OOSEVEL[facility] Telephone (OGFVWE) JIMMY LEMA ([id number]) 3 F Date Time Provider Department 08/14/24 NURSE NATIONAL ACCOUNTS RECRUITER [facility] OGFVWE During your visit today, we recorded [...] Status:Closed by ALF TREVINO on 08/14/24 Normal [facility] Examination level ultrasound on 07-12-2024 Indication Standard [...] 11 oz EFW by: Hadlock (HC-AC-FL) Extended Legal Mediator 6.7 mm CM 4.5 mm 40% Nicolaides [...] normal LVOT view: normal 3-vessel view: normal 8-cisumd-fwntqvu view: normal Heart / Thorax Situs: situs [...] Read By: Brielle Norman M.D. MATERNAL MEDICINE [facility] Radiology Study observation (narrative) Anna mooney [facility] Lo 06-29-2024 [facility] Telephone (OGFVWE) JIMMY LEMA ([id number]) 3 F Date Time Provider Department 06/29/24 NURSE NATIONAL ACCOUNTS RECRUITER [facility] During your visit today, we recorded the following information about you: Alf Trevino, RN 06/29/2024 9:13 AM Signed 1st risk assessment form submitted 06/29/24 Alf Trevino RN Allergies As of Date: 06/29/2024 (No Known Allergies) Date Reviewed: 06/26/2024 Reviewed by: Rosi Pasucal MA - Fully Assessed Reason for Visit: [...] Status:Closed by ALF TREVINO on 06/29/24 Normal [facility] BACTERIAL VAGINOSIS NAATon 0 06-28-2024 Interpretation and review of laboratory results Normal [facility] Lactobacillus crispatus+gasseri+stein ii + Gardnerella vaginalis + Atopobium vaginae rRNA BAMBI+probe Ql (Vag fld) Not detected Not detected [facility] Lactobacillus crispatus+gasseri+stein ii + Gardnerella vaginalis + Atopobium vaginae rRNA BAMBI+probe Ql (Vag fld) Not detected Normal Not detected [facility] Comment on above: Order Comment: Speci men Type: SWABOrdering Facility: [facility] Address: [address] [place] [address] Performed By: #### C VTV, BVAMP ####[facility] LABCLIA [id number] [place] [address] [place] Bacteria Ur Culton Bacteria identified Cx Nom (U) ORGANISM ID: 1 >=100,000 CFU/ml Normal urogenital twyla Normal [facility] Comment on above: Performed By: #### 6 30-4 ####[facility] LABCLIA [id number] [place] [address] [place] C. trachomatis+N. gonorrhoea e DNA BAMBI+probe Ql (Unsp spec)on 06-28-2024 C. trachomatis rRNA BAMBI+probe Ql (Unsp spec) Not detected Not detected [facility] Interpretation and review of laboratory results Normal [facility] N. gonorrhoeae rRNA BAMBI+probe Ql (Unsp spec) Not detected Not detected [facility] This FDA-approved assay has been modified to accept rectal swabs self-collected in a healthcare setting. For self-collected rectal swabs, the test was developed and its performance characteristics determined by the [facility]'s [facility] (-PLMI). It has not been cleared or approved by the FDA. [facility] is regulated under CLIA as qualified to perform high-complexity testing. This test is used for clinical purposes. It should not be regarded as investigational or for research. [facility] C. trachomatis rRNA BAMBI+probe Ql (Unsp spec) Not detected Normal Not detected [facility] Comment on above: Order Comment: Speci men Type: SWABOrdering Facility: [facility] Address: [address] [place] [address] Performed By: #### 3 6902-5 ####[facility] LABCLIA [id number] [place] [address] [place] N. gonorrhoeae rRNA BAMBI+probe Ql (Unsp spec) Not detected Normal Not detected [facility] Comment on above: Order Comment: Speci men Type: SWABOrdering Facility: [facility] Address: [address] [place] [address] Performed By: #### 3 6902-5 ####[facility] LABCLIA [id number] [place] [address] [place] SCARLET/TRICHOMONAS NAATon 0 06-28-2024 C. glabrata RNA BAMBI+probe Ql (Vag fld) Not detected Not detected [facility] Scarlet sp DNA BAMBI+probe Ql (Vag fld) Not detected Not detected [facility] Comment on above: The Scarlet species group target includes C. albicans, C. tropicalis, C. parapsilosis, and C. dubliniensis. Interpretation and review of laboratory results Normal [facility] T. vaginalis DNA BAMBI+probe Ql (Unsp spec) Not detected Not detected [facility] C. glabrata RNA BAMBI+probe Ql (Vag fld) Not detected Normal Not detected [facility] Comment on above: Order Comment: Speci men Type: SWABOrdering Facility: [facility] Address: [address] [place] [address] Performed By: #### C VTV, BVAMP ####[facility] LABIA [id number] [address] [place] Scarlet sp DNA BAMBI+probe Ql (Vag fld) Not detected Normal Not detected [facility] Comment on above: Order Comment: Speci men Type: SWABOrdering Facility: [facility] Address: [address] [place] [address] Result Comment: The Scarlet species group target includes C. albicans, C. tropicalis, C. parapsilosis, and C. dubliniensis. Performed By: #### C VTV, BVAMP ####[facility] LABCLIA [id number] [address] [place] T. vaginalis DNA BAMBI+probe Ql (Unsp spec) Not detected Normal Not detected [facility] Comment on above: Order Comment: Speci men Type: SWABOrdering Facility: [facility] Address: [address] [place] [address] Performed By: #### C VTV, BVAMP ####[facility] LABCLIA [id number] [place] [address] [place] CBC W Auto Differential pane l (Bld)on 06-28-2024 Basophils (Bld) [#/Vol] 0.04 10*3/uL Normal <0.11 [facility] Comment on above: Order Comment: Speci men Type: BLOOD SPECIMENOrdering Facility: [facility] Address: [address] [place] [address] Performed By: #### 5 7021-8 ####[facility] [id number] [place] [address] [place] Basophils/100 WBC (Bld) 0.4 % Normal [facility] Comment on above: Order Comment: Speci men Type: BLOOD SPECIMENOrdering Facility: [facility] Address: [address] [place] [address] Performed By: #### 5 7021-8 ####[facility] CHILDRENCLOVISA [id number] [place] [address] [place] Differential cell count method Nom (Bld) Auto Normal [facility] Comment on above: Order Comment: Speci men Type: BLOOD SPECIMENOrdering Facility: [facility] Address: [address] [place] [address] Performed By: #### 5 7021-8 ####[facility] CHILDRENNCLIA [id number] [place] [address] [place] Eosinophils (Bld) [#/Vol] 0.07 10*3/uL Normal <0.46 [facility] Comment on above: Order Comment: Speci men Type: BLOOD SPECIMENOrdering Facility: [facility] Address: [address] [place] [address] Performed By: #### 5 7021-8 ####[facility] [id number] [place] [address] [place] Eosinophils/100 WBC (Bld) 0.7 % Normal [facility] Comment on above: Order Comment: Speci men Type: BLOOD SPECIMENOrdering Facility: [facility] Address: [address] [place] [address] Performed By: #### 5 7021-8 ####[facility] CHILDRENNCLIAnabell [id number] [place] [address] [place] Erythrocyte distribution width (RBC) [Ratio] 13.3 % Normal 11.5-15.0 [facility] Comment on above: Order Comment: Speci men Type: BLOOD SPECIMENOrdering Facility: [facility] Address: [address] [place] [address] Performed By: #### 5 7021-8 ####[facility] CHILDRENNCA [id number] [place] [address] [place] Hematocrit (Bld) [Volume fraction] 35.7 % Low 36.0-46.0 [facility] Comment on above: Order Comment: Speci men Type: BLOOD SPECIMENOrdering Facility: [facility] Address: [address] [place] [address] Performed By: #### 5 7021-8 ####[facility] CHILDRENNCLIA [id number] [place] [address] [place] Hemoglobin (Bld) [Mass/Vol] 12.5 g/dL Normal 11.5-15.5 [facility] Comment on above: Order Comment: Speci men Type: BLOOD SPECIMENOrdering Facility: [facility] Address: [address] [place] [address] Performed By: #### 5 7021-8 ####[facility] MILLWNCLIA [id number] [place] [address] [place] Immature granulocytes (Bld) [#/Vol] 0.07 10*3/uL Normal <0.10 [facility] Comment on above: Order Comment: Speci men Type: BLOOD SPECIMENOrdering Facility: [facility] Address: [address] [place] [address] Performed By: #### 5 7021-8 ####[facility] OHIOLIA [id number] [place] [address] [place] Immature granulocytes/100 WBC (Bld) 0.7 % Normal [facility] Comment on above: Order Comment: Speci men Type: BLOOD SPECIMENOrdering Facility: [facility] Address: [address] [place] [address] Performed By: #### 5 7021-8 ####[facility] OHIOLIA [id number] [place] [address] [place] Lymphocytes (Bld) [#/Vol] 2.24 10*3/uL Normal 1.00-4.00 [facility] Comment on above: Order Comment: Speci men Type: BLOOD SPECIMENOrdering Facility: [facility] Address: [address] [place] [address] Performed By: #### 5 7021-8 ####[facility]ITALWNCLIA [id number] [place] [address] [place] Lymphocytes/100 WBC (Bld) 22.0 % Normal [facility] Comment on above: Order Comment: Speci men Type: BLOOD SPECIMENOrdering Facility: [facility] Address: [address] [place] [address] Performed By: #### 5 7021-8 ####[facility] FOR CHILDRENNCLIA [id number] [place] [address] [place] MCH (RBC) [Entitic mass] 31.7 pg Normal 26.0-34.0 [facility] Comment on above: Order Comment: Speci men Type: BLOOD SPECIMENOrdering Facility: [facility] Address: [address] [place] [address] Performed By: #### 5 7021-8 ####[facility] FOR CHILDRENFELECIA [id number] [place] [address] [place] MCHC (RBC) [Mass/Vol] 35.0 g/dL Normal 30.5-36.0 [facility] Comment on above: Order Comment: Speci men Type: BLOOD SPECIMENOrdering Facility: [facility] Address: [address] [place] [address] Performed By: #### 5 7021-8 ####[facility] FOR CHILDRENCLOVISAnabell [id number] [address] [place] MCV (RBC) [Entitic vol] 90.6 fL Normal 80.0-100.0 C [facility] Comment on above: Order Comment: Speci men Type: BLOOD SPECIMENOrdering Facility: [facility] Address: [address] [place] [address] Performed By: #### 5 7021-8 ####[facility] FOR CHILDRENFELECIA [id number] [place] [address] [place] Monocytes (Bld) [#/Vol] 0.58 10*3/uL Normal <0.87 [facility] Comment on above: Order Comment: Speci men Type: BLOOD SPECIMENOrdering Facility: [facility] Address: [address] [place] [address] Performed By: #### 5 7021-8 ####[facility] FOR CHILDRENNCLIA [id number] [address] [place] Monocytes/100 WBC (Bld) 5.7 % Normal C [facility] Comment on above: Order Comment: Speci men Type: BLOOD SPECIMENOrdering Facility: [facility] Address: [address] [place] [address] Performed By: #### 5 7021-8 ####[facility] SENGHOUSTONCLOVISLIA [id number] [place] [address] [place] Neutrophils (Bld) [#/Vol] 7.16 10*3/uL Normal 1.45-7.50 [facility] Comment on above: Order Comment: Speci men Type: BLOOD SPECIMENOrdering Facility: [facility] Address: [address] [place] [address] Performed By: #### 5 7021-8 ####[facility] OHIOLIA [id number] [place] [address] [place] Neutrophils/100 WBC (Bld) 70.5 % Normal [facility] Comment on above: Order Comment: Speci men Type: BLOOD SPECIMENOrdering Facility: [facility] Address: [address] [place] [address] Performed By: #### 5 7021-8 ####[facility] [id number] [place] [address] [place] Nucleated RBC (Bld) [#/Vol] 10*3/uL Normal <0.01 [facility] Comment on above: Order Comment: Speci men Type: BLOOD SPECIMENOrdering Facility: [facility] Address: [address] [place] [address] Performed By: #### 5 7021-8 ####[facility] OHIOLIA [id number] [place] [address] [place] Nucleated RBC/100 WBC (Bld) [Ratio] 0.0 /100 WBC Normal [facility] Comment on above: Order Comment: Speci men Type: BLOOD SPECIMENOrdering Facility: [facility] Address: [address] [place] [address] Performed By: #### 5 7021-8 ####[facility] MILLJELENAWNCLIA [id number] [place] [address] [place] Platelet mean volume (Bld) [Entitic vol] 9.5 fL Normal 9.0-12.7 [facility] Comment on above: Order Comment: Speci men Type: BLOOD SPECIMENOrdering Facility: [facility] Address: [address] [place], [place] [address] Performed By: #### 5 7021-8 ####[facility]ITALCareyNCLIA [id number] [place] [address] [place] Platelets (Bld) [#/Vol] 229 10*3/uL Normal 150-400 [facility] Comment on above: Order Comment: Speci men Type: BLOOD SPECIMENOrdering Facility: [facility] Address: [address] [place], [place] [address] Performed By: #### 5 7021-8 ####[facility] FOR CHILDRENNCLIA [id number] [place] [address] [place] RBC (Bld) [#/Vol] 3.94 10*6/uL Normal 3.90-5.20 [facility] Comment on above: Order Comment: Speci men Type: BLOOD SPECIMENOrdering Facility: [facility] Address: [address] [place] [address] Performed By: #### 5 7021-8 ####[facility] AMILCARWNCLIA [id number] [place] [address] [place] WBC (Bld) [#/Vol] 10.16 10*3/uL Normal 3.70-11.[address] [facility] Comment on above: Order Comment: Speci men Type: BLOOD SPECIMENOrdering Facility: [facility] Address: [address] [place] [address] Performed By: #### 5 7021-8 ####[facility] [id number] [place] [id number] [place] HBV surface Ag Ql (S)on 06-07 Interpretation and review of laboratory results Normal [facility] HBV surface Ag Ser Qlon 06-07 HBV surface Ag Ql (S) Negative Normal Negative [facility] Comment on above: Order Comment: Speci men Type: BLOOD SPECIMENOrdering Facility: [facility] Address: [address] [place] [address] Performed By: #### 7 3752-8, 06523-1, 5195-3 ####[facility] LABIA [id number] [place] [address] [place] HCV Ab Ql (S)on 06-28-2024 Interpretation and review of laboratory results Normal [facility] HCV Ab Ser Qlon 06-28-2024 HCV Ab Ql (S) Negative Normal Negative [facility] Comment on above: Order Comment: Speci men Type: BLOOD SPECIMENOrdering Facility: [facility] Address: [address] [place] [address] Result Comment: The result suggests no evidence of infection with Hepatitis C virus. Should recent infection be suspected, repeat testing may be considered 4-6 weeks after this draw. Performed By: #### 1 6128-1 ####[facility] LABIA [id number] [place] [address] [place] HEPATITIS B SURFACE ANTIGENo n 06-28-2024 HBV surface Ag Ql (S) Negative Negative [facility] HEPATITIS C ANTIBODY IA WITH CONFIRMATIONon 06-28-2024 HCV Ab Ql (S) Negative Negative [facility] Comment on above: The result suggests no evidence of infection with Hepatitis C virus. Should recent infection be suspected, repeat testing may be considered 4-6 weeks after this draw. HIV 1+2 Ab IA Qlon HIV 1 and 2 Ab IA.rapid Nom (S/P/Bld) [facility] Comment on above: Test not indicated. HIV 1+2 Ab+HIV1 p24 Ag IA Ql Non-Reactive Nonreactive [facility] HIV immunoassay testing algorithm interpretation (S/P/Bld) [Interp] [facility] Comment on above: No evidence of HIV-1 or HIV-2 infection. Should recent infection be suspected, repeat testing may be considered 2-3 weeks after this draw. [place] Rev. Code 3701.243(E): This information has been [...] release of HIV test results or diagnoses. [facility] HIV 1 and 2 Ab IA.rapid Nom (S/P/Bld) Normal [facility] Comment on above: Order Comment: Speci men Type: BLOOD SPECIMENOrdering Facility: [facility] Address: [address] [place] [address] Result Comment: Test not indicated. Performed By: #### 7 3752-8, 21266-5, 5195-3 ####[facility] [id number] [place] [address] [place] HIV 1+2 Ab+HIV1 p24 Ag IA Ql Non-Reactive Normal Nonreactive [facility] Comment on above: Order Comment: Speci men Type: BLOOD SPECIMENOrdering Facility: [facility] Address: [address] [place] [address] Performed By: #### 7 3752-8, 95383-3, 5195-3 ####[facility] [id number] [place] [address] [place] HIV immunoassay testing algorithm interpretation (S/P/Bld) [Interp] Normal [facility] Comment on above: Order Comment: Speci men Type: BLOOD SPECIMENOrdering Facility: [facility] Address: [address] [place] [address] Result Comment: No e vidence of HIV-1 or HIV-2 infection. Should recent infection be suspected, repeat testing may be considered 2-3 weeks after this draw. [place] Rev. Code 3701.243(E): This information has been [...] or diagnoses. Performed By: #### 7 3752-8, 29856-5, 5195-3 ####[facility] LABIA [id number] [address] [facility] HbA1c (Bld)on 06-28-2024 Average glucose Estimated from glycated hemoglobin (Bld) [Mass/Vol] 100 mg/dL [facility] Comment on above: eAG: (Estimated aver age glucose) is a calculated value from HgbA1c and is parts counter representative of the average blood glucose level in the last 2-3 month period. HbA1c (Bld) [Mass fraction] 5.1 % 4.3 - 5.6 % [facility] Comment on above: [place] Diabetes As sociation guidelines indicate that patients with HgbA1c in the range 5.7-6.4% are at increased risk for development of diabetes, and intervention by lifestyle modification may be beneficial. HgbA1c greater or equal to 6.5% is considered diagnostic of diabetes. [facility] Average glucose Estimated from glycated hemoglobin (Bld) [Mass/Vol] 100 mg/dL Normal [facility] Comment on above: Order Comment: Speci men Type: BLOOD SPECIMENOrdering Facility: [facility] Address: [address] [place] [address] Result Comment: eAG: (Estimated average glucose) is a calculated value from HgbA1c and is parts counter representative of the average blood glucose level in the last 2-3 month period. Performed By: #### 5 5454-3 ####[facility] [id number] [address] HbA1c (Bld) [Mass fraction] 5.1 % Normal 4.3-5.6 [facility] Comment on above: Order Comment: Speci men Type: BLOOD SPECIMENOrdering Facility: [facility] Address: [address] [place] [address] Result Comment: Amer [place] Diabetes Association guidelines indicate that patients with HgbA1c in the range 5.7-6.4% are at increased risk for development of diabetes, and intervention by lifestyle modification may be beneficial. HgbA1c greater or equal to 6.5% is considered diagnostic of diabetes. Performed By: #### 5 5454-3 ####[facility] LABCLIA [id number] [address] [place] [id number] PLUSon 06-28-2024 Cell-free DNA./Cell-free DNA.total Dosage of chromosome-specific cfDNA (cfDNA) [Molar fraction] 23% Normal [facility] Comment on above: Order Comment: Speci men Type: BLOOD SPECIMENOrdering Facility: [facility] Address: [address] [place] [address] Performed By: #### M AT21 ####[facility] LABCLIA [id number] [place] [address] Chr 13+18+21+X+Y aneuploidy Dosage of chromosome-specific cfDNA Ql (cfDNA) Negative Normal [facility] Comment on above: Order Comment: Speci men Type: BLOOD SPECIMENOrdering Facility: [facility] Address: [address] [place] [address] Performed By: #### M AT21 ####[facility] LABCLIA [id number] [place] [address] Chr 21 trisomy Dosage of chromosome-specific cfDNA Ql (cfDNA) Negative Normal [facility] Comment on above: Order Comment: Speci men Type: BLOOD SPECIMENOrdering Facility: [facility] Address: [address] [place] [address] Performed By: #### M AT21 ####[facility] LABCLIA [id number] [place] [address] Chr X and Y aneuploidy risk Sequencing Ql (cfDNA) [Interp] Not detected Normal [facility] Comment on above: Order Comment: Speci men Type: BLOOD SPECIMENOrdering Facility: [facility] Address: [address] [place] [address] Result Comment: Not Detected Not Detected Performed By: #### M AT21 ####[facility] LABCLIA [id number] [place] [address] Citation Issa (Reference lab test) Comment Normal [facility] Comment on above: Order Comment: Speci men Type: BLOOD SPECIMENOrdering Facility: [facility] Address: [address] [place] [address] Result Comment: 1. P shu JIMENEZ, et al. Jennifer Med. 2012;14(3):296-305. 2. Liberty CURRY, et al. Prenat Diag. 2013;33(6):591-597. 3. Maurice C, et al. Clin Chem. 2015 Apr;61(4):608-616. 4. Gael JIMENEZ, et al. Jennifer Med. 2011;13(11):913-920. 5. ACOG/SMFM Practice Bulletin No. 226, Dec 2019. Performed By: #### M AT21 ####[facility] LABCLIA [id number] [place] [address] Gestational age Estimated from conception date Garza Normal [facility] Comment on above: Order Comment: Speci men Type: BLOOD SPECIMENOrdering Facility: [facility] Address: [address] [place] [address] Performed By: #### M AT21 ####[facility] LABCLIA [id number] [place] [address] GESTATIONALAGE AGE > OR = 9W Yes Normal [facility] Comment on above: Order Comment: Speci men Type: BLOOD SPECIMENOrdering Facility: [facility] Address: [address] [place] [address] Performed By: #### M AT21 ####[facility] LABCLIA [id number] [place] [address] Laboratory comment Issa (Report) Comment Normal [facility] Comment on above: Order Comment: Speci men Type: BLOOD SPECIMENOrdering Facility: [facility] Address: [address] [place] [address] Result Comment: The MaterniT(R) 21 PLUS laboratory-developed test (LDT) analyzes circulating cell-free DNA from a maternal blood sample. This test is used for screening purposes and not diagnostic. Clinical correlation is recommended. Validation data on twin pregnancies is limited and the ability of this test to detect aneuploidy in higher multiple gestations has not yet been validated. Performed By: #### M AT21 ####GT ChannelIA [id number] [place] [id number] director of regional sales name Nom (Provider) Comment Normal [facility] Comment on above: Order Comment: Speci men Type: BLOOD SPECIMENOrdering Facility: [facility] Address: [address] [place] [address] Result Comment: This specimen showed an expected representation of chromosome 21, 18 and 13 material. Clinical correlation is suggested. Comment Cj Morocho MD, PhD, Director, [facility] Performed By: #### M AT21 ####[facility] LABCLIA [id number] [place] [address] LIMITATIONS OF THE TEST Comment Normal [facility] Comment on above: Order Comment: Speci men Type: BLOOD SPECIMENOrdering Facility: [facility] Address: [address] [place] [address] Result Comment: Hien tolliver the results of [...] and Fragmin(R)). Performed By: #### M AT21 ####GT Channel[facility] [id number] [place] [address] Monosomy X risk Dosage of chromosome-specific cfDNA Ql (Plasma cell-free+WBC DNA) [Interp] Not detected Normal [facility] Comment on above: Order Comment: Laura gill Type: BLOOD SPECIMENOrdering Facility: [facility] Address: [address] [place] [address] Performed By: #### M AT21 ####[employer] LABmydoodle.comIA [id number] [place] [address] NEGATIVE PREDICTIVE VALUE Note Normal [facility] Comment on above: Order Comment: Laura gill Type: BLOOD SPECIMENOrdering Facility: [facility] Address: [address] [place] [address] Result Comment: The Negative Predictive Value (NPV) for trisomy 21, 18, and 13 is greater than 99%. The NPV for SCA and ESS cannot be calculated as SCA and ESS are only reported when an abnormality is detected. Performed By: #### M AT21 ####[facility] LABIA [id number] [place] [address] PERFORMANCE CHARACTERISTICS Note Normal [facility] Comment on above: Order Comment: Speci men Type: BLOOD SPECIMENOrdering Facility: [facility] Address: [address] [place] [address] Result Comment: ! Sex ! Accuracy: 99.4% [...] ! ! ! * As reported in [facility] database nstd37 [https://www.ncbi.nlm.nih.gov/dbvar/studies/nstd37/ ] # [...] gestation only. Performed By: #### M AT21 ####GT Channel[facility] [id number] [place] [address] POSITIVE PREDICTIVE VALUE N/A Normal [facility] Comment on above: Order Comment: Speccharlene gill Type: BLOOD SPECIMENOrdering Facility: [facility] Address: [address] [place] [id number] Performed By: #### M AT21 ####[employer] LABCLIA [id number] [place] [address] Reference Lab Test Method Comment Normal [facility] Comment on above: Order Comment: Laura gill Type: BLOOD SPECIMENOrdering Facility: [facility] Address: [address] [place] [id number] Result Comment: See Notes Circulating cell-free DNA [...] and 22. Performed By: #### M AT21 ####[facility] LABCLIA [id number] [place] [address] Service comment (Unsp spec) [Interp] Comment Normal [facility] Comment on above: Order Comment: Speci men Type: BLOOD SPECIMENOrdering Facility: [facility] Address: [address] [place] [address] Result Comment: See Notes [employer] is a subsidiary of [employer], using the brand [employer]. This test was developed and its performance characteristics determined by [employer]. It has not been cleared or approved by the Food and Drug Administration. This laboratory is certified under the Clinical Laboratory Improvement Amendments (CLIA) as qualified to perform high complexity clinical laboratory testing and accredited by the College of [place] Pathologists (CAP). If there is future clinical need for adding MaterniT GENOME testing, this specimen will be available until term. [facility] samples will not be retained beyond 60 days. [facility] patients will have to send a new sample for re-sequencing ([facility] Test Code: 200779). Performed By: #### M AT21 ####[facility] LABCLIA [id number] [place] [address] Sex Dosage of chromosome-specific cfDNA Nom (cfDNA) Comment Normal [facility] Comment on above: Order Comment: Speci men Type: BLOOD SPECIMENOrdering Facility: [facility] Address: [address] [place] [address] Result Comment: Cons istent with Male Performed By: #### M AT21 ####[facility] LABCLIA [id number] [place] [address] Test performance information Issa (Unsp spec) Comment Normal [facility] Comment on above: Order Comment: Speci men Type: BLOOD SPECIMENOrdering Facility: [facility] Address: [address] [place] [address] Result Comment: The performance characteristics of the MaterniT(R) 21 PLUS laboratory-developed test (LDT) have been determined in a clinical validation study with women at increased risk for chromosomal aneuploidy.[1-4] Performed By: #### M AT21 ####[facility] LABCLIA [id number] [place] [address] Trisomy 13 risk Dosage of chromosome-specific cfDNA Ql (cfDNA) [Interp] Negative Normal [facility] Comment on above: Order Comment: Speci men Type: BLOOD SPECIMENOrdering Facility: [facility] Address: [address] [place] [address] Performed By: #### M AT21 ####[facility] LABCLIA [id number] [place] [address] Trisomy 18 risk Dosage of chromosome-specific cfDNA Ql (Plasma cell-free+WBC DNA) [Interp] Negative Normal [facility] Comment on above: Order Comment: Speci men Type: BLOOD SPECIMENOrdering Facility: [facility] Address: [address] [place] [address] Performed By: #### M AT21 ####[facility] LABCLIA [id number] [place] [address] POC BLUNGER ULTRASOUNDon 06-29-19 Indication Viability; confirm cardiac activity, [...] Read By: Gina Kulkarni CNM MATERNAL MEDICINE [facility] Radiology Study observation (narrative) [facility] RUBELLA IGG ANTIBODYon 06-28 Interpretation and review of laboratory results Abnormal [facility] Rubella IgG, Qual Negative Abnormal Positive [facility] Comment on above: The result suggests no history of Rubella vaccination or exposure to Rubella virus, however, some individuals with past history of Rubella vaccination may test negative using this test as immunity to Rubella virus wanes over time after vaccination. Please correlate with vaccination history if applicable. [facility] RUBELLA IGG AB, QUAL Negative Abnormal Positive [facility] Comment on above: Order Comment: Speci men Type: BLOOD SPECIMENOrdering Facility: [facility] Address: [address] [place] [address] Result Comment: The result suggests no history of Rubella vaccination or exposure to Rubella virus, however, some individuals with past history of Rubella vaccination may test negative using this test as immunity to Rubella virus wanes over time after vaccination. Please correlate with vaccination history if applicable. Performed By: #### R UBIGG ####[facility] LABCLIA [id number] [place] [address] [place] Reagin and Treponema pallidu m IgG and IgM [Interp]on 06-28-2024 T. pallidum IgG+IgM IA Ql (S) Non-Reactive Nonreactive [facility] T. pallidum IgG+IgM IA Ql (S) Non-Reactive Normal Nonreactive [facility] Comment on above: Order Comment: Speci men Type: BLOOD SPECIMENOrdering Facility: [facility] Address: [address] [place] [address] Performed By: #### 7 3752-8, 25270-4, 5195-3 ####[facility] LABCLIA [id number] [place] [address] [place] Reagin+T pallidum IgG+IgM Se rPl-Impon 06-28-2024 Reagin and Treponema pallidum IgG and IgM [Interp] Cannot exclude recent Treponemal infection if specimen collected within 7-10 days after appearance of suspect lesions or 2-3 weeks after an exposure. Clinical correlation is required. Normal [facility] Comment on above: Order Comment: Speci men Type: BLOOD SPECIMENOrdering Facility: [facility] Address: [address] [place] [address] Performed By: #### 7 3752-8, 97557-9, 5195-3 ####[facility] LABCLIA [id number] [place] [address] [place] SYPHILIS TREPONEMAL W/REFLEX on 06-28-2024 Reagin and Treponema pallidum IgG and IgM [Interp] Cannot exclude recent Treponemal infection if specimen collected within 7-10 days after appearance of suspect lesions or 2-3 weeks after an exposure. Clinical correlation is required. [facility] TYPE + SCREEN PRENATALon ABO group Nom (Bld) O [facility] Blood group antibody screen Ql Negative [facility] Rh Nom (Bld) Positive [facility] Type and Screen Expiration 07/01/2024 23:59 [facility] ABO O Normal [facility] Comment on above: Order Comment: Speci men Type: BLOOD SPECIMENOrdering Facility: [facility] Address: [address] [place] [address] Performed By: #### T SPN ####[facility] BLOOD BANKCLIA [id number] [place] [address] [place] Rh Nom (Bld) Positive Normal [facility] Comment on above: Order Comment: Speci men Type: BLOOD SPECIMENOrdering Facility: [facility] Address: [address] [place] [address] Performed By: #### T SPN ####[facility] BLOOD BANKCLIA [id number] [place] [id number] [facility] [place] TYPE AND SCREEN EXPIRATION 07/01/2024 23:59 Normal [facility] Comment on above: Order Comment: Speci men Type: BLOOD SPECIMENOrdering Facility: [facility] Address: [address] [place] [address] Performed By: #### T SPN ####[facility] BLOOD BANKCLIA [id number] [address] OF [place] CNPNon 04-07-2024 CNPN Telephone (PEDSWS) JIMMY LEMA ([id number]) 3 F Date Time Provider Department 04/07/24 [...] contact office to schedule sports ortho consult. Veterinary Technician Instructor's decision tree advises to schedule patient to [...] Order(s):CONSULT TO SPORTS MEDICINE [[id number]] Order #: [id number]: 1 FUTURE Prescriptions as of 04/08/2024 - [...] Status:Closed by ELSY EVANS on 04/07/24 Normal [facility] XR Sacrum and Coccyx 3 Views on 04-06-2024 IMPRESSION: Transitional vertebra at the lumbosacral junction. Director Of Enterprise Architecture: PSCB Transcribe Date/Time: Apr 06 2024 10:14A Dictated by : JOANNE HERRING MD This examination was interpreted and the report reviewed and electronically signed by: JOANNE HERRING MD on Apr 06 2024 10:16AM [facility] DIVISION OF RADIOLOGY * * *Final Report* [...] significant osteophyte formation. DIVISION OF RADIOLOGY Provider, [facility] [place] - 04/06/2024 * * *Final Report* * [...] IMPRESSION: Transitional vertebra at the lumbosacral junction. Director Of Enterprise Architecture: HIRAM Transcribe Date/Time: Apr 06 2024 10:14A Dictated by : JOANNE HERRING MD This examination was interpreted and the report reviewed and electronically signed by: JOANNE HERRING MD on Apr 06 2024 10:16AM [facility] XR Sacrum and Coccyx 3 Views Ordered By: [facility] Provider on 04-06-2024 [facility] CNOVon 04-05-2024 CNOV Office Visit (PEDSWS) JIMMY LEMA ([id number]) 3 F Date Time Provider Department 04/05/24 [...] Diagnosis:Bony abnormality [Q79.9] Order(s):XR SACRUM/COCCYX 3V AP/LAT [[id number]] Order #: [id number] FUTURE Prescriptions as of 04/13/2024 - PAIN [...] Status:Closed by DIANA VELAZQUEZ on 04/13/24 Normal [facility] XR SACRUM/COCCYX 3V AP/LATon 04-05-2024 XR SACRUM/COCCYX [...] IMPRESSION: Transitional vertebra at the lumbosacral junction. Director Of Enterprise Architecture: PSCB Transcribe Date/Time: Apr 06 2024 10:14A Dictated by : JOANNE HERRING MD This examination was interpreted and the report reviewed and electronically signed by: JOANNE HERRING MD on Apr 06 2024 10:16AM EST [id number] Normal [facility] XR Sacrum and Coccyx 3 Views on 04-05-2024 Radiology Study observation (narrative) [facility] Lo 03-16-2024 EMMETT Telephone (OBGYWM) PITAJIMMY ([id number]) 3 F Date Time Provider Department 03/16/24 SIOMARA LANZA OBGYWM During your visit today, we recorded the following information about you: Siomara Lanza APRN.CNP 03/16/2024 8:54 AM Signed Based on urinalysis it does appear the patient has a urinary tract infection Macrobid into drug [place] in [place]. Please notify patient. Siomara Lanza APRN.Chi Lerma RN 03/16/2024 10:03 AM Signed Pt notified and voiced understanding. Chi Galdamez RN Allergies As of Date: 03/16/2024 (No Known Allergies) Date Reviewed: 07/29/2023 Reviewed by: Paulina Chadwick APRN.PHARMACY HELPER - Fully Assessed Reason for Visit: Results [...] Status:Closed by CHI GALDAMEZ on 03/16/24 Normal [facility] Bacteria Ur Culton Bacteria identified Cx Nom [...] , Intermediate >32 , Resistant >64 Abnormal [facility] Comment on above: Performed By: #### 6 30-4 ####[facility] LABCLIA [id number] [place] [address] [place] Urinalysis complete panel (U )on 03-15-2024 BACTERIA UL >9821 High Negative [facility] Comment on above: Order Comment: Speci men Type: URINE SPECIMENOrdering Facility: [facility] Address: [address] [place] [address] Performed By: #### 2 4356-8 ####[facility] LABCLIA [id number] [place] [address] [place] Bilirubin Ql (U) Negative Normal Negative [facility] Comment on above: Order Comment: Speci men Type: URINE SPECIMENOrdering Facility: [facility] Address: [address] [place] [address] Performed By: #### 2 4356-8 ####[facility] LABCLIA [id number] [place] [address] [place] Clarity (Unsp spec) Cloudy Abnormal Clear [facility] Comment on above: Order Comment: Speci men Type: URINE SPECIMENOrdering Facility: [facility] Address: [address] [place] [address] Performed By: #### 2 4356-8 ####[facility] LABCLIA [id number] [place] [address] [place] Color (U) Yellow Normal Yellow [facility] Comment on above: Order Comment: Speci men Type: URINE SPECIMENOrdering Facility: [facility] Address: [address] [place] [address] Performed By: #### 2 4356-8 ####[facility] LABCLIA [id number] [place] [address] [place] Epithelial cells LM.HPF (Urine sed) [#/Area] Many Normal [facility] Comment on above: Order Comment: Speci men Type: URINE SPECIMENOrdering Facility: [facility] Address: [address] [place] [address] Result Comment: Few Performed By: #### 2 4356-8 ####[facility] LABCLIA [id number] [place] [address] [place] Glucose Test strip (U) [Mass/Vol] Negative Normal Negative [facility] Comment on above: Order Comment: Speci men Type: URINE SPECIMENOrdering Facility: [facility] Address: [address] [place] [address] Performed By: #### 2 4356-8 ####[facility] LABCLIA [id number] [place] [address] [place] Hemoglobin Ql (U) 2+ Abnormal Negative [facility] Comment on above: Order Comment: Speci men Type: URINE SPECIMENOrdering Facility: [facility] Address: [address] [place] [address] Performed By: #### 2 4356-8 ####[facility] LABCLIA [id number] [place] [address] [place] Hyaline casts (Urine sed) [#/Area] 1-3 /LPF Abnormal 0 /LPF [facility] Comment on above: Order Comment: Speci men Type: URINE SPECIMENOrdering Facility: [facility] Address: [address] [place] [address] Performed By: #### 2 4356-8 ####[facility] LABCLIA [id number] [place] [address] [place] Ketones Ql (U) Trace Abnormal Negative [facility] Comment on above: Order Comment: Speci men Type: URINE SPECIMENOrdering Facility: [facility] Address: [address] [place] [address] Performed By: #### 2 4356-8 ####[facility] LABCLIA [id number] [place] [address] [place] Leukocyte esterase Test strip Ql (U) 1+ Abnormal Negative [facility] Comment on above: Order Comment: Speci men Type: URINE SPECIMENOrdering Facility: [facility] Address: [address] [place] [address] Performed By: #### 2 4356-8 ####[facility] LABCLIA [id number] [place] [address] [place] Nitrite Ql (U) Negative Normal Negative [facility] Comment on above: Order Comment: Speci men Type: URINE SPECIMENOrdering Facility: [facility] Address: [address] [place] [address] Performed By: #### 2 4356-8 ####[facility] LABCLIA [id number] [place] [address] [place] pH (U) 5.5 [pH] Normal <8.5 [facility] Comment on above: Order Comment: Speci men Type: URINE SPECIMENOrdering Facility: [facility] Address: [address] [place] [address] Performed By: #### 2 4356-8 ####[facility] LABCLIA [id number] [place] [address] [place] Protein (U) [Mass/Vol] 2+ Abnormal Negative [facility] Comment on above: Order Comment: Speci men Type: URINE SPECIMENOrdering Facility: [facility] Address: [address] [place] [address] Performed By: #### 2 4356-8 ####[facility] LABCLIA [id number] [place] [address] [place] RBC LM.HPF (Urine sed) [#/Area] /[HPF] Abnormal 0-2 /HPF [facility] Comment on above: Order Comment: Speci men Type: URINE SPECIMENOrdering Facility: [facility] Address: [address] [place] [address] Performed By: #### 2 4356-8 ####[facility] [id number] [place] [address] [place] Specific gravity (U) [Rel density] 1.026 Normal 1.005-1.030 [facility] Comment on above: Order Comment: Speci men Type: URINE SPECIMENOrdering Facility: [facility] Address: [address] [place] [address] Performed By: #### 2 4356-8 ####[facility] LABIA [id number] [place] [address] [place] Urobilinogen Ql (U) 0.2 EU/dL Normal 0.2-1.0 EU/dL [facility] Comment on above: Order Comment: Speci men Type: URINE SPECIMENOrdering Facility: [facility] Address: [address] [place] [address] Performed By: #### 2 4356-8 ####[facility] [id number] [place] [address] [place] WBC LM.HPF (Urine sed) [#/Area] /[HPF] Abnormal 0-5 /HPF [facility] Comment on above: Order Comment: Speci men Type: URINE SPECIMENOrdering Facility: [facility] Address: [address] [place] [address] Performed By: #### 2 4356-8 ####[facility] [id number] [place] [address] [place] Urgent Care Visit Reporton 0 12-01-2023 Urgent Care Visit Report [facility] [address], [address] [place], [place] [id number] OFFICE VISIT Date of Service: 12/01/23 MR#: [id number] Acct: [id number] Name: JIMMY LEMA Rep #: [id number] : 2005 Provider: KATLYN Gibbs Age/Sex: 18/F Location: [facility] [place] Status: Signed Intake Vital Signs 07/05/23 11:31 Height 5 ft 3 in Intake Visit Reasons: PRE EMP/NON DOT/PHYSICAL/[place] Chief Complaint: feeding assessment Allergies No Known Allergies Allergy (Verified 06/16/23 19:28) [facility] Medical History (Updated 12/01/23 @ 08:33 by [...] Cosigner Signature: Date (if applicable) CC: Normal [facility] MR/BMS.BBCon 07-05-2023 MR/BMS.[facility] [address] [place] [address] OFFICE VISIT Date of Service: 06/23/23 MR#: [id number] Acct: [id number] Name: JIMMY LEMA Rep #: [id number] : 2005 Provider: Geovanna Traylor NP Age/Sex: 18/F [place] [facility] [place]: Signed Intake Vital Signs 06/16/23 19:30 [...] 80 mmHg: *Referral to Alternate/Primary Care Health 911 Operator OR * Follow-up with rescreen in 2 [...] >=90): * Referral to Alternate/Primary Care Health 911 Operator OR *Nonpharmacological Intervention AND reassessment in 2-6 [...] Date ___ (more content not included)... Normal [facility] CBC W/Diff, Automatedon 06-06 Absolute Neut Normal 2.0-7.7 [facility] Comment on above: Order Comment: Comme nts: First day Result Comment: LACHO ENT DISCHARGED Performed By: #### L 100.0100 #### [facility] [address] [place], [address] HCT Normal 37-47 [facility] Comment on above: Order Comment: Comme nts: First day Result Comment: LACHO ENT DISCHARGED Performed By: #### L 100.0100 #### [facility] [address] [place], [address] HGB Normal 12.0-15.0 [facility] Comment on above: Order Comment: Comme nts: First day Result Comment: LACHO ENT DISCHARGED Performed By: #### L 100.0100 #### [facility] [address] [place], [address] MCH Normal 27.0-32.0 [facility] Comment on above: Order Comment: Comme nts: First day Result Comment: LACHO ENT DISCHARGED Performed By: #### L 100.0100 #### [facility] [address] [place], [address] MCHC Normal 32-36 [facility] Comment on above: Order Comment: Comme nts: First day Result Comment: LACHO ENT DISCHARGED Performed By: #### L 100.0100 #### [facility] [address] [place], [address] MCV Normal 81-99 [facility] Comment on above: Order Comment: Comme nts: First day Result Comment: LACHO ENT DISCHARGED Performed By: #### L 100.0100 #### [facility] [address] [place], [address] NEUT% Normal 47-70 [facility] Comment on above: Order Comment: Comme nts: First day Result Comment: LACHO ENT DISCHARGED Performed By: #### L 100.0100 #### [facility] [address] [place], [address] PLT Normal 150-450 [facility] Comment on above: Order Comment: Comme nts: First day Result Comment: LACHO ENT DISCHARGED Performed By: #### L 100.0100 #### [facility] [address] [place], [address] RBC Normal 4.2-5.4 [facility] Comment on above: Order Comment: Comme nts: First day Result Comment: LACHO ENT DISCHARGED Performed By: #### L 100.0100 #### [facility] [address] [place], [address] RDW CV Normal 11.6-14.6 [facility] Comment on above: Order Comment: Comme nts: First day Result Comment: LACHO ENT DISCHARGED Performed By: #### L 100.0100 #### [facility] [address] [place], [address] RDW SD Normal 35.1-43.9 [facility] Comment on above: Order Comment: Comme nts: First day Result Comment: LACHO ENT DISCHARGED Performed By: #### L 100.0100 #### [facility] [address] [place], [address] WBC Normal 4.4-11.0 [facility] Comment on above: Order Comment: Comme nts: First day Result Comment: LACHO ENT DISCHARGED Performed By: #### L 100.0100 #### [facility] [address] [place], [address] CBC W/Diff, Automatedon - Absolute Neut Normal 2.0-7.7 [facility] Comment on above: Order Comment: Comme nts: First day Result Comment: Canc elled via OM: Order edited - Discontinuing original order Performed By: #### L 100.0100 #### [facility] [address] [place], [address] HCT Normal 37-47 [facility] Comment on above: Order Comment: Comme nts: First day Result Comment: Canc elled via OM: Order edited - Discontinuing original order Performed By: #### L 100.0100 #### [facility] [address] [place], [address] HGB Normal 12.0-15.0 [facility] Comment on above: Order Comment: Comme nts: First day Result Comment: Canc elled via OM: Order edited - Discontinuing original order Performed By: #### L 100.0100 #### [facility] [address] [place], [address] MCH Normal 27.0-32.0 [facility] Comment on above: Order Comment: Comme nts: First day Result Comment: Canc elled via OM: Order edited - Discontinuing original order Performed By: #### L 100.0100 #### [facility] [address] [place], [address] MCHC Normal 32-36 [facility] Comment on above: Order Comment: Comme nts: First day Result Comment: Canc elled via OM: Order edited - Discontinuing original order Performed By: #### L 100.0100 #### [facility] [address] [place], [address] MCV Normal 81-99 [facility] Comment on above: Order Comment: Comme nts: First day Result Comment: Canc elled via OM: Order edited - Discontinuing original order Performed By: #### L 100.0100 #### [facility] [address] [place], [address] NEUT% Normal 47-70 [facility] Comment on above: Order Comment: Comme nts: First day Result Comment: Canc elled via OM: Order edited - Discontinuing original order Performed By: #### L 100.0100 #### [facility] [address] [place], [address] PLT Normal 150-450 [facility] Comment on above: Order Comment: Comme nts: First day Result Comment: Canc elled via OM: Order edited - Discontinuing original order Performed By: #### L 100.0100 #### [facility] [address] [place], [address] RBC Normal 4.2-5.4 [facility] Comment on above: Order Comment: Comme nts: First day Result Comment: Canc elled via OM: Order edited - Discontinuing original order Performed By: #### L 100.0100 #### [facility] [address] [place], [address] RDW CV Normal 11.6-14.6 [facility] Comment on above: Order Comment: Comme nts: First day Result Comment: Canc elled via OM: Order edited - Discontinuing original order Performed By: #### L 100.0100 #### [facility] [address] [place], [address] RDW SD Normal 35.1-43.9 [facility] Comment on above: Order Comment: Comme nts: First day Result Comment: Canc elled via OM: Order edited - Discontinuing original order Performed By: #### L 100.0100 #### [facility] [address] [place], [address] WBC Normal 4.4-11.0 [facility] Comment on above: Order Comment: Comme nts: First day Result Comment: Canc elled via OM: Order edited - Discontinuing original order Performed By: #### L 100.0100 #### [facility] [address] [place], [address] Operative Reporton 4 Operative Report [facility] Medical Records Department [address] [place] [address] Operative Report 06/17/23 1339 MR#: [id number] Acct: [id number] Name: JIMMY LEMA Rep #: [id number] : 2005 18 From: Marium Stevenson MD PCP: Care Physician,No Primary Status:ADM IN Location: [id number] Assessment Plan (1) (spontaneous vaginal delivery): (2) [...] MD; No Primary Care Physician Signed Normal [facility] Absolute lymphocyte countOrd ered By: Gina Kulkarni on 06-16-2023 Lymphocytes Auto (Unsp spec) [#/Vol] 1.70 10*3/uL 0.83-4.51 [facility] Automated lymphocyte count a s percentage of total leukocytesOrdered By: Gina Kulkarni on 06-16-2023 Lymphocytes/100 WBC Auto (Unsp spec) 14.0 % 19-41 [facility] Basophil percentageOrdered B y: Gina Kulkarni on 06-16-2023 Basophils/100 WBC (Bld) 0.3 % 0-1 [facility] Eosinophils/100 WBC (Bld) 0.3 % 0-5 [facility] Hemoglobin (Bld) [Mass/Vol] 12.0 g/dL 12.0-15.0 [facility] Monocytes/100 WBC (Bld) 8.1 % 0-10 [facility] Neutrophils (Bld) [#/Vol] 9.2 10*3/uL 2.0-7.7 [facility] Neutrophils/100 WBC (Bld) 75.7 % 47-70 [facility] WBC (Bld) [#/Vol] 12.2 10*3/uL 4.4-11.0 [facility] CBC W/Diff, Automatedon 06-06 Absolute Lymph 1.70 X10 3/uL Normal 0.83-4.51 [facility] Comment on above: Performed By: #### L 100.0100, BTS #### [facility] [address] [place], [address] Absolute Neut 9.2 X10 3/uL High 2.0-7.7 [facility] Comment on above: Performed By: #### L 100.0100, BTS #### [facility] [address] [place], [address] Basophils/100 WBC (Bld) 0.3 % Normal 0-1 [facility] Comment on above: Performed By: #### L 100.0100, BTS #### [facility] [address] [place], [address] Eosinophils/100 WBC (Bld) 0.3 % Normal 0-5 [facility] Comment on above: Performed By: #### L 100.0100, BTS #### [facility] [address] [place], [address] Erythrocyte distribution width (RBC) [Ratio] 13.8 % Normal 11.6-14.6 [facility] Comment on above: Performed By: #### L 100.0100, BTS #### [facility] [address] [place], [address] Hematocrit (Bld) [Volume fraction] 35.5 % Low 37-47 [facility] Comment on above: Performed By: #### L 100.0100, BTS #### [facility] [address] [place], [address] Hemoglobin (Bld) [Mass/Vol] 12.0 g/dL Normal 12.0-15.0 [facility] Comment on above: Performed By: #### L 100.0100, BTS #### [facility] [address] [place], [address] IG% 1.600 High 0.0-0.9 [facility] Comment on above: Result Comment: IG% - Immature Granulocytes (promyelocytes, myelocytes and metamyelocytes) > 1% indicates that a LEFT SHIFT is Present. Performed By: #### L 100.0100, BTS #### [facility] [address] [place], [address] Lymphocytes/100 WBC (Bld) 14.0 % Low 19-41 [facility] Comment on above: Performed By: #### L 100.0100, BTS #### [facility] [address] [place], [address] MCH (RBC) [Entitic mass] 32.0 pg Normal 27.0-32.0 [facility] Comment on above: Performed By: #### L 100.0100, BTS #### [facility] [address] [place], [address] MCHC (RBC) [Mass/Vol] 33.8 g/dL Normal 32-36 [facility] Comment on above: Performed By: #### L 100.0100, BTS #### [facility] [address] [place], [address] MCV (RBC) [Entitic vol] 94.7 fL Normal 81-99 [facility] Comment on above: Performed By: #### L 100.0100, BTS #### [facility] [address] [place], [address] Monocytes/100 WBC (Bld) 8.1 % Normal 0-10 [facility] Comment on above: Performed By: #### L 100.0100, BTS #### [facility] [address] [place], [address] Neutrophils/100 WBC (Bld) 75.7 % High 47-70 [facility] Comment on above: Performed By: #### L 100.0100, BTS #### [facility] [address] [place], [address] Nucleated RBC (Bld) [#/Vol] 0 10*3/uL Normal 0-5 [facility] Comment on above: Performed By: #### L 100.0100, BTS #### [facility] [address] [place], [address] Platelet mean volume (Bld) [Entitic vol] 10.6 fL Normal 6.2-12.0 [facility] Comment on above: Performed By: #### L 100.0100, BTS #### [facility] [address] [place], [address] Platelets (Bld) [#/Vol] 214 10*3/uL Normal 150-450 [facility] Comment on above: Performed By: #### L 100.0100, BTS #### [facility] [address] [place], [address] RBC (Bld) [#/Vol] 3.75 10*6/uL Low 4.2-5.4 [facility] Comment on above: Performed By: #### L 100.0100, BTS #### [facility] [address] [place], [address] RDW SD 48.0 fl High 35.1-43.9 [facility] Comment on above: Performed By: #### L 100.0100, BTS #### [facility] [address] [place], [address] WBC (Bld) [#/Vol] 12.2 10*3/uL High 4.4-11.0 [facility] Comment on above: Performed By: #### L 100.0100, BTS #### [facility] [address] [facility] [place], [address] Determination of erythrocyte mean corpuscular volume (MCV)Ordered By: Gina Kulkarni on 06-16-2023 MCV (RBC) [Entitic vol] 94.7 fL 81-99 [facility] Erythrocyte distribution wid th ratioOrdered By: Gina Kulkarni on 06-16-2023 Erythrocyte distribution width (RBC) [Ratio] 13.8 % 11.6-14.6 [facility] Erythrocyte distribution wid th standard deviationOrdered By: Gina Kulkarni on 06-16-2023 Erythrocyte distribution width (RBC) [Entitic vol] 48.0 fL 35.1-43.9 [facility] H AND P Exam - OB/GYNon 04- H&P Exam - POLICY ISSUE CLERK [facility] Medical Records Department [address] [place] [address] H P Exam - POLICY ISSUE CLERK 06/16/232006 MR#: [id number] Acct: [id number] Name: JIMMY LEMA Rep #: [id number] : 2005 18 From: Gina Kulkarni CNM PCP: Care Physician,No Primary Status:ADM IN Location: [id number] HPI - General General Date of Admission: [...] of admission and is collaborating physician 06/16/23 1795 Cosigner Signature (if applicable): CC: ARELIS Kulkarni; No Primary Care Physician Signed Normal [facility] Hematocrit Auto (Bld) [Volum e fraction]Ordered By: Gina Kulkarni on 06-16-2023 Hematocrit (Bld) [Volume fraction] 35.5 % 37-47 [facility] Immature granulocytes/100 WB C Auto (Bld)Ordered By: Gina Kulkarni on 06-16-2023 Immature granulocytes/100 WBC (Bld) 1.600 % 0.0-0.9 [facility] Comment on above: IG% - Immature Granu locytes (promyelocytes, myelocytes and metamyelocytes) > 1% indicates that a LEFT SHIFT is Present. L509.8000on 06-16-2023 Syphilis Abs Non-Reactive Normal [facility] Comment on above: Performed By: #### L 509.8000 #### [facility] [place], [address] Laboratory - Hematology and Cell countsOrdered By: Gina Kulkarni on 06-16-2023 MCH (RBC) [Entitic mass] 32.0 pg 27.0-32.0 [facility] MCHC (RBC) [Mass/Vol] 33.8 g/dL 32-36 [facility] Nucleated RBC/100 WBC (Bld) [Ratio] 0 % 0-5 [facility] Platelet mean volume (Bld) [Entitic vol] 10.6 fL 6.2-12.0 [facility] Platelets (Bld) [#/Vol] 214 10*3/uL 150-450 [facility] RBC Auto (Bld) [#/Vol]Ordere d By: Gina Kulkarni on 06-16-2023 RBC (Bld) [#/Vol] 3.75 10*6/uL 4.2-5.4 [facility] Serum Treponema species anti body detectionOrdered By: Gina Kulkarni on 06-16-2023 Treponema sp Ab Ql (S) Non-Reactive [facility] Type AND Screenon 06-16-2023 Ab SCREEN GEL Negative Normal [facility] Comment on above: Order Comment: LABOR Performed By: #### B TS #### [facility] [address] [place], [address] ABO and Rh group Nom (Bld) Blood group O Rh(D) positive Normal [facility] Comment on above: Order Comment: LABOR Performed By: #### B TS #### [facility] [address] [place], [address] A1 CELL Not performed Normal [facility] Comment on above: Order Comment: Labor Result Comment: QNS NOTIFIED WP REDRAW IS NEEDED [facility] -10 Performed By: #### L 100.0100, BTS #### [facility] [address] [place], [address] Ab SCREEN GEL Not performed Normal [facility] Comment on above: Order Comment: Labor Result Comment: QNS NOTIFIED WP REDRAW IS NEEDED [facility] -10 Performed By: #### L 100.0100, BTS #### [facility] [address] [place], [address] ABO and Rh group Nom (Bld) Test Not Performed Normal [facility] Comment on above: Order Comment: Labor Result Comment: QNS NOTIFIED WP REDRAW IS NEEDED [facility] -10 Performed By: #### L 100.0100, BTS #### [facility] [address] [place], [address] ANTI A Not performed Normal [facility] Comment on above: Order Comment: Labor Result Comment: QNS NOTIFIED WP REDRAW IS NEEDED [facility] - Performed By: #### L 100.0100, BTS #### [facility] [address] [place], [address] ANTI B Not performed Normal [facility] Comment on above: Order Comment: Labor Result Comment: QNS NOTIFIED WP REDRAW IS NEEDED [facility] 06-15 Performed By: #### L 100.0100, BTS #### [facility] [address] [place], [address] ANTI D Not performed Normal [facility] Comment on above: Order Comment: Labor Result Comment: QNS NOTIFIED WP REDRAW IS NEEDED [facility] 06-15 Performed By: #### L 100.0100, BTS #### [facility] [address] [place], [address] B CELLS Not performed Normal [facility] Comment on above: Order Comment: Labor Result Comment: QNS NOTIFIED WP REDRAW IS NEEDED [facility] -10 Performed By: #### L 100.0100, BTS #### [facility] [address] [place], [address] BLD TYPE RECHEK Not performed Normal [facility] Comment on above: Order Comment: Labor Result Comment: QNS NOTIFIED WP REDRAW IS NEEDED [facility] -10 Performed By: #### L 100.0100, BTS #### [facility] [address] [place], [address] URINE OB DIP B/Oon 4 Glucose Ql (U) Negative Neg mg/dL [facility] Protein.monoclonal (U) [Mass/Vol] 100 mg/dL Neg mg/dL [facility] URINE OB DIP B/Oon 4 Glucose Ql (U) Negative Neg mg/dL [facility] Protein.monoclonal (U) [Mass/Vol] Negative Neg mg/dL [facility] URINE OB DIP B/Oon 4 Glucose Ql (U) Negative Neg mg/dL [facility] Protein.monoclonal (U) [Mass/Vol] trace Neg mg/dL [facility] URINE OB DIP B/Oon 4 Glucose Ql (U) Negative Neg mg/dL [facility] Protein.monoclonal (U) [Mass/Vol] Negative Neg mg/dL [facility] URINE OB DIP B/Oon 4 Glucose Ql (U) Negative Neg mg/dL [facility] Protein.monoclonal (U) [Mass/Vol] Negative Neg mg/dL [facility] URINE OB DIP B/Oon 4 Glucose Ql (U) Negative Neg mg/dL [facility] Protein.monoclonal (U) [Mass/Vol] Negative Neg mg/dL [facility] OBSTETRIC ULTRASOUND Ion 1 04-19-2022 [facility] URINE OB DIP B/Oon 3 Glucose Ql (U) Negative Neg mg/dL [facility] Protein.monoclonal (U) [Mass/Vol] Negative Neg mg/dL [facility] OBSTETRIC ULTRASOUND Ion 1 03-22-2022 [facility] URINE OB DIP B/Oon 3 Glucose Ql (U) Negative Neg mg/dL [facility] Protein.monoclonal (U) [Mass/Vol] Negative Neg mg/dL [facility] URINE OB DIP B/Oon 3 Glucose Ql (U) Negative Neg mg/dL [facility] Protein.monoclonal (U) [Mass/Vol] Negative Neg mg/dL [facility] Vital Signs Date Time Vital Sign Value Performing Clinician Facility 10-10-2024 15:29-0400 Body temperature 97.6 [degF] No Primary Care Physician [facility] 10-10-2024 15:29-0400 Respiratory rate 16 /min No Primary Care Physician [facility] 10-10-2024 15:28-0400 Diastolic blood pressure 79 mm[Hg] No Primary Care Physician [facility] 10-10-2024 15:28-0400 Heart rate 103 /min No Primary Care Physician [facility] 10-10-2024 15:28-0400 Systolic blood pressure 121 mm[Hg] No Primary Care Physician [facility] 10-10-2024 15:21-0400 Body height 160.02 cm No Primary Care Physician [facility] 10-10-2024 15:21-0400 Body mass index (BMI) [Ratio] 23 kg/m2 No Primary Care Physician [facility] 10-10-2024 15:21-0400 Body weight 59 kg No Primary Care Physician [facility] 10-05-2024 09:50-0400 Body mass index (BMI) [Ratio] 22.85 kg/m2 Gina Plotirina TECHNICAL STAFF ENGINEER.CNM Work Phone: [facility] 10-05-2024 09:50-0400 Body weight 58.51 kg Gina Plotts TECHNICAL STAFF ENGINEER.CNM Work Phone: [facility] 10-05-2024 09:50-0400 Diastolic blood pressure 60 mm[Hg] Gina Plotts TECHNICAL STAFF ENGINEER.CNM Work Phone: [facility] 10-05-2024 09:50-0400 Systolic blood pressure 98 mm[Hg] Gina Plotts TECHNICAL STAFF ENGINEER.CNM Work Phone: [facility] 09-17-2024 08:39-0400 Body mass index (BMI) [Ratio] 22.1 kg/m2 Crista Moomaw TECHNICAL STAFF ENGINEER.PHARMACY HELPER Work Phone: [facility] 09-17-2024 08:39-0400 Body temperature 96.91 [degF] Crista Moomaw TECHNICAL STAFF ENGINEER.PHARMACY HELPER Work Phone: [facility] 09-17-2024 08:39-0400 Body weight 56.6 kg Crista Moomaw TECHNICAL STAFF ENGINEER.PHARMACY HELPER Work Phone: [facility] 09-17-2024 08:39-0400 Diastolic blood pressure 62 mm[Hg] Crista Moomaw TECHNICAL STAFF ENGINEER.PHARMACY HELPER Work Phone: [facility] 09-17-2024 08:39-0400 Heart rate 94 /min Crista Moomaw TECHNICAL STAFF ENGINEER.PHARMACY HELPER Work Phone: [facility] 09-17-2024 08:39-0400 Respiratory rate 18 /min Crista Moomaw TECHNICAL STAFF ENGINEER.PHARMACY HELPER Work Phone: [facility] 09-17-2024 08:39-0400 SaO2% (BldA) [Mass fraction] 98 % Crista Moomaw TECHNICAL STAFF ENGINEER.PHARMACY HELPER Work Phone: [facility] 09-17-2024 08:39-0400 Systolic blood pressure 112 mm[Hg] Crista Moomaw TECHNICAL STAFF ENGINEER.PHARMACY HELPER Work Phone: [facility] 08-11-2024 13:44-0400 Body mass index (BMI) [Ratio] 22.32 kg/m2 Gina Plotts TECHNICAL STAFF ENGINEER.CNM Work Phone: [facility] 08-11-2024 13:44-0400 Body weight 57.15 kg Gina Plotts TECHNICAL STAFF ENGINEER.CNM Work Phone: [facility] 08-11-2024 13:44-0400 Diastolic blood pressure 64 mm[Hg] Gina Plotts TECHNICAL STAFF ENGINEER.CNM Work Phone: [facility] 08-11-2024 13:44-0400 Systolic blood pressure 98 mm[Hg] Gina Plotts TECHNICAL STAFF ENGINEER.CNM Work Phone: [facility] 07-12-2024 15:56-0400 Body mass index (BMI) [Ratio] 21.43 kg/m2 Paulina Hamacrina TECHNICAL STAFF ENGINEER.PHARMACY HELPER Work Phone: [facility] 07-12-2024 15:56-0400 Body weight 54.88 kg Paulina Hamacrina TECHNICAL STAFF ENGINEER.PHARMACY HELPER Work Phone: [facility] 07-12-2024 15:56-0400 Diastolic blood pressure 62 mm[Hg] Paulina Haury TECHNICAL STAFF ENGINEER.PHARMACY HELPER Work Phone: [facility] 07-12-2024 15:56-0400 Systolic blood pressure 100 mm[Hg] Paulina Chadwick TECHNICAL STAFF ENGINEER.PHARMACY HELPER Work Phone: [facility] 06-28-2024 08:36-0400 Body height 160 cm Gina Hinojosats TECHNICAL STAFF ENGINEER.CNM Work Phone: [facility] 06-28-2024 08:36-0400 Body mass index (BMI) [Ratio] 21.19 kg/m2 Gina Plotts TECHNICAL STAFF ENGINEER.CNM Work Phone: [facility] 06-28-2024 08:36-0400 Body weight 54.25 kg Gina Plotts TECHNICAL STAFF ENGINEER.CNM Work Phone: [facility] 06-28-2024 08:36-0400 Diastolic blood pressure 68 mm[Hg] Gina Plotts TECHNICAL STAFF ENGINEER.CNM Work Phone: [facility] 06-28-2024 08:36-0400 Systolic blood pressure 106 mm[Hg] Gina Plotts TECHNICAL STAFF ENGINEER.CNM Work Phone: [facility] 04-05-2024 15:00-0500 Body mass index (BMI) [Ratio] 20.37 kg/m2 Diana Velazquez PA-C Work Phone: [facility] 04-05-2024 15:00-0500 Body temperature 98.1 [degF] Diana Velazquez PA-C Work Phone: [facility] 04-05-2024 15:00-0500 Body weight 52.16 kg Diana Velazquez PA-C Work Phone: [facility] 04-05-2024 15:00-0500 Heart rate 86 /min Diana Velazquez PA-C Work Phone: [facility] 04-05-2024 15:00-0500 Respiratory rate 18 /min Diana Velazquez PA-C Work Phone: [facility] 07-29-2023 08:45-0400 Body height 160 cm Paulina Chadwick TECHNICAL STAFF ENGINEER.PHARMACY HELPER Work Phone: [facility] 07-29-2023 08:45-0400 Body mass index (BMI) [Ratio] 21.97 kg/m2 Paulina Navarromacrina STARK.PHARMACY HELPER Work Phone: [facility] 07-29-2023 08:45-0400 Body weight 56.25 kg Paulina Navarromacrina STARK.PHARMACY HELPER Work Phone: [facility] 07-29-2023 08:45-0400 Diastolic blood pressure 64 mm[Hg] Paulina Navarromacrina STARK.PHARMACY HELPER Work Phone: [facility] 07-29-2023 08:45-0400 Systolic blood pressure 102 mm[Hg] Paulina Navarromacrina STARK.PHARMACY HELPER Work Phone: [facility] 06-18-2023 15:16-0400 Respiratory rate 16 /min [facility] 06-18-2023 11:54-0400 Body temperature 98.2 [degF] [facility] 06-18-2023 11:54-0400 Diastolic blood pressure 79 mm[Hg] [facility] 06-18-2023 11:54-0400 Heart rate 82 /min [facility] 06-18-2023 11:54-0400 SaO2% (BldA) [Mass fraction] 99 % [facility] 06-18-2023 11:54-0400 Systolic blood pressure 115 mm[Hg] [facility] 06-16-2023 19:30-0400 Body height 160.02 cm [facility] 06-16-2023 19:30-0400 Body mass index (BMI) [Percentile] Per age and sex 84.2 % [facility] 06-16-2023 19:30-0400 Body mass index (BMI) [Ratio] 26 kg/m2 [facility] 06-16-2023 19:30-0400 Body weight 66.67 kg [facility] 06-08-2023 11:16-0400 Body weight 65.77 kg Kari Mane MD Work Phone: [facility] 06-08-2023 11:16-0400 Diastolic blood pressure 68 mm[Hg] Kari Mane MD Work Phone: [facility] 06-08-2023 11:16-0400 Systolic blood pressure 112 mm[Hg] Kair Mane MD Work Phone: [facility] 06-01-2023 11:39-0400 Body weight 65.23 kg Kari Mane MD Work Phone: [facility] 06-01-2023 11:39-0400 Diastolic blood pressure 70 mm[Hg] Kari Mane MD Work Phone: [facility] 06-01-2023 11:39-0400 Systolic blood pressure 110 mm[Hg] Kari Mane MD Work Phone: [facility] 05-25-2023 13:31-0400 Body weight 64.95 kg Kari Mane MD Work Phone: [facility] 05-25-2023 13:31-0400 Diastolic blood pressure 68 mm[Hg] Kari Mane MD Work Phone: [facility] 05-25-2023 13:31-0400 Systolic blood pressure 98 mm[Hg] Kari Mane MD Work Phone: [facility] 05-18-2023 10:04-0400 Body weight 64.41 kg Gemma Reaves MD Work Phone: [facility] 05-18-2023 10:04-0400 Diastolic blood pressure 60 mm[Hg] Gemma Reaves MD Work Phone: [facility] 05-18-2023 10:04-0400 Systolic blood pressure 108 mm[Hg] Gemma Reaves MD Work Phone: [facility] 05-04-2023 09:49-0500 Body weight 63.32 kg Kari Mane MD Work Phone: [facility] 05-04-2023 09:49-0500 Diastolic blood pressure 74 mm[Hg] Kari Mane MD Work Phone: [facility] 05-04-2023 09:49-0500 Systolic blood pressure 120 mm[Hg] Kari Mane MD Work Phone: [facility] 04-20-2023 09:32-0500 Body weight 63.05 kg Gemma Reaves MD Work Phone: [facility] 04-20-2023 09:32-0500 Diastolic blood pressure 64 mm[Hg] Gemma Reaves MD Work Phone: [facility] 04-20-2023 09:32-0500 Systolic blood pressure 110 mm[Hg] Gemma Reaves MD Work Phone: [facility] 02-16-2023 14:40-0500 Body weight 58.06 kg Siomara Milan TECHNICAL STAFF ENGINEER.PHARMACY HELPER Work Phone: [facility] 02-16-2023 14:40-0500 Diastolic blood pressure 66 mm[Hg] Siomara Pool TECHNICAL STAFF ENGINEER.PHARMACY HELPER Work Phone: [facility] 02-16-2023 14:40-0500 Systolic blood pressure 98 mm[Hg] Siomara Milan TECHNICAL STAFF ENGINEER.PHARMACY HELPER Work Phone: [facility] 01-20-2023 14:41-0500 Body weight 55.79 kg Gemma Reaves MD Work Phone: [facility] 01-20-2023 14:41-0500 Diastolic blood pressure 72 mm[Hg] Gemma Reaves MD Work Phone: [facility] 01-20-2023 14:41-0500 Systolic blood pressure 106 mm[Hg] Gemma Reaves MD Work Phone: [facility] 12-22-2022 14:43-0400 Body weight 54.61 kg Kari Mane MD Work Phone: [facility] 12-22-2022 14:43-0400 Diastolic blood pressure 70 mm[Hg] Kari Mane MD Work Phone: [facility] 12-22-2022 14:43-0400 Systolic blood pressure 110 mm[Hg] Kari Mane MD Work Phone: [facility] 10-27-2021 08:51-0400 Body weight 52.8 kg Siomara Milan TECHNICAL STAFF ENGINEER.PHARMACY HELPER Work Phone: [facility] 10-27-2021 08:51-0400 Diastolic blood pressure 62 mm[Hg] Siomara Pool TECHNICAL STAFF ENGINEER.PHARMACY HELPER Work Phone: [facility] 10-27-2021 08:51-0400 Systolic blood pressure 82 mm[Hg] Siomara Milan TECHNICAL STAFF ENGINEER.PHARMACY HELPER Work Phone: [facility] 07-01-2021 12:51-0400 Body weight 51.53 kg Siomara Milan TECHNICAL STAFF ENGINEER.PHARMACY HELPER Work Phone: [facility] 07-01-2021 12:51-0400 Diastolic blood pressure 60 mm[Hg] Siomara Pool TECHNICAL STAFF ENGINEER.PHARMACY HELPER Work Phone: [facility] 07-01-2021 12:51-0400 Systolic blood pressure 100 mm[Hg] Siomara Pool TECHNICAL STAFF ENGINEER.PHARMACY HELPER Work Phone: [facility] Encounters Encounter Date Encounter Type Care Provider Facility Start: 10-10-2024 End: 10-10-2024 ambulatory No Primary Care Physician -[facility] [place] [facility] Start: 10-10-2024 End: 10-10-[address] Gem[facility] Work Phone: Start: 10-06-2024 End: 10-06-2024 ambulatory Gina Kulkarni TECHNICAL STAFF ENGINEER.CNM Work Phone: OB/Gynecology Comment on above: Breast pump Start: 10-06-2024 End: 10-06-2024 Telephone encounter Nurse Wildlife Enforcement Major Joanne [place] Work Phone: Obstetrics/Gynecology Comment on above: PRAF Start: 10-05-2024 End: 10-05-2024 Patient encounter procedure Gina Kulkarni TECHNICAL STAFF ENGINEER.CNM Work Phone: OB/Gynecology Comment on above: Supervision of high risk in third trimester (HCC) (Primary Dx); Late care (HCC); Screening for diabetes mellitus; Limited care in third trimester (HCC); 31 weeks gestation of (HCC) Start: 10-05-2024 End: 10-05-2024 ambulatory GINA KULKARNI Facility:[facility] Start: 09-17-2024 End: 09-17-2024 ambulatory CRISTA VASQUEZ Facility:[facility] Start: 09-17-2024 End: 09-17-2024 Patient encounter procedure Crista Vasquez TECHNICAL STAFF ENGINEER.PHARMACY HELPER Work Phone: [facility] [place] Comment on above: Diarrhea, unspecifie d type (Primary Dx) Start: 08-14-2024 End: 08-14-2024 Telephone encounter Nurse Wildlife Enforcement Major Joanne Joyce Work Phone: Obstetrics/Gynecology Comment on above: PRAF Start: 08-11-2024 End: 08-11-2024 Patient encounter procedure Gina Kulkarni TECHNICAL STAFF ENGINEER.CNM Work Phone: OB/Gynecology Comment on above: Screening for diabet es mellitus (Primary Dx); 23 weeks gestation of (HCC); Late care (HCC); Encounter for supervision of high risk in second trimester, antepartum (HCC); Short interval between pregnancies affecting in second trimester, antepartum (HCC) Start: 08-11-2024 End: 08-11-2024 ambulatory [facility] Facility:[facility] Start: 08-09-2024 End: 08-10-2024 ambulatory Gina Kulkarni APRN.CNVignesh Work Phone: OB/Gynecology Comment on above: Reschedule appt Start: 07-12-2024 End: 07-12-2024 Patient encounter procedure Whi [employer] 1 Wildlife Enforcement Major [facility] Comment on above: Encounter for anatomic survey (HCC) (Primary Dx); 19 weeks gestation of (HCC) Encounter for superv ision of high risk in second trimester, antepartum (HCC) (Primary Dx); 19 weeks gestation of (HCC); Short interval between pregnancies affecting in second trimester, antepartum (HCC); Rubella non-immune status, antepartum (HCC) Start: 07-12-2024 End: 07-12-2024 ambulatory [facility] Facility:[facility] Start: 06-28-2024 End: 08-28-2024 Follow-up encounter Gina Kulkarni APRN.CNVignesh Work Phone: OB/Gynecology Start: 06-28-2024 End: 06-28-2024 Patient encounter procedure Gina Kulkarni TECHNICAL STAFF ENGINEERBrandieCNM Work Phone: OB/Gynecology Comment on above: with fetus of unknown gestational age (HCC) (Primary Dx); 17 weeks gestation of (HCC); Short interval between pregnancies affecting in second trimester, antepartum (HCC); Late care (HCC); Encounter for supervision of high risk in second trimester, antepartum (HCC); Alcohol consumption during in first trimester (HCC) Start: 06-28-2024 End: 06-28-2024 ambulatory GINA KULKARNI Facility:[facility] Start: 04-14-2024 End: 04-14-2024 Patient encounter procedure Donald De La Torre PA-C Work Phone: Orthopaedics Start: 04-13-2024 End: 04-14-2024 ambulatory Diana Velazquez PA-C Work Phone: [facility] [place] Start: 04-13-2024 End: 04-14-2024 Follow-up encounter Diana Velazquez PA-C Work Phone: [facility] [place] Comment on above: Visit follow up Start: 04-07-2024 End: 04-07-2024 Telephone encounter Diana Velazquez PA-C Work Phone: [facility] [place] Comment on above: Results Start: 04-05-2024 End: 04-05-2024 Subsequent hospital visit by physician Timothy [facility] [place] Work Phone: Radiology Comment on above: Bony abnormality [Q7 9.9] Start: 04-05-2024 End: 04-05-2024 ambulatory DIANA VELAZQUEZ Facility:[facility] Start: 04-05-2024 End: 04-05-2024 Patient encounter procedure Diana Doughertyut PA-C Work Phone: [facility] [place] Comment on above: Bony abnormality (Pr imary Dx) Start: 03-16-2024 End: 03-16-2024 Telephone encounter Siomara Lanza APRN.PHARMACY HELPER Work Phone: OB/Gynecology Comment on above: Results Start: 03-15-2024 End: 03-15-2024 ambulatory SIOMARA POOL Facility:[facility] Start: 03-13-2024 End: 03-14-2024 ambulatory Siomara Lanza TECHNICAL STAFF ENGINEER.PHARMACY HELPER Work Phone: OB/Gynecology Comment on above: Using [...] End: 07-29-2023 Patient encounter procedure Paulina Chadwick TECHNICAL STAFF ENGINEER.PHARMACY HELPER Work Phone: OB/Gynecology Comment on above: care and examination (Primary Dx); Abnormal glucose affecting ; Constipation, unspecified constipation type; Sacral mass Start: 06-23-2023 End: 06-23-2023 ambulatory No Primary Care Physician Facility:[facility] [place] Start: 06-17-2023 ambulatory Marium islas MD Work Phone: OB/Gynecology Comment on above: Ob Delivery Note Start: 06-16-2023 End: 06-18-2023 Evaluation and management of inpatient [facility] [place] Work Phone: Start: 06-08-2023 End: 06-08-2023 Patient [...] third trimester Start: 05-31-2023 ambulatory Marah Burris [facility] Comment on above: Population Health Na vigation [...] above: Question Start: 04-20-2023 ambulatory Siomara Lanza TECHNICAL STAFF ENGINEER.PHARMACY HELPER Work Phone: OB/Gynecology Comment on above: Glucose Test Start: 04-20-2023 End: 04-20-2023 Patient encounter procedure Gemma Reaves MD Work Phone: OB/Gynecology Comment on above: Supervision of high risk in third trimester (Primary Dx); Abnormal glucose in , antepartum; 32 weeks gestation of Start: 04-10-2023 ambulatory Kari Mooney Work Phone: OB/Gynecology Comment on above: Glucose Test Start: 02-16-2023 End: 02-16-2023 Patient encounter procedure Siomara Milan TECHNICAL STAFF ENGINEER.PHARMACY HELPER Work Phone: OB/Gynecology Comment on above: Supervision [...] first Start: 12-08-2022 Telephone encounter Siomara Corriganc correction TECHNICAL STAFF ENGINEER.PHARMACY HELPER Work Phone: OB/Gynecology Comment on above: Orders Start: 11-26-2022 Telephone encounter Siomara Metc correction TECHNICAL STAFF ENGINEER.PHARMACY HELPER Work Phone: OB/Gynecology Comment on above: Results Start: 10-27-2021 End: 10-27-2021 Patient encounter procedure Siomara Pool TECHNICAL STAFF ENGINEER.PHARMACY HELPER Work Phone: OB/Gynecology Comment on above: Encounter for survei llance of contraceptive pills (Primary Dx) Start: 10-24-2021 Refill Siomara Pool TECHNICAL STAFF ENGINEER.PHARMACY HELPER Work Phone: OB/Gynecology Comment on above: Refill Request Start: 07-01-2021 End: 07-01-2021 Patient encounter procedure Siomara Pool TECHNICAL STAFF ENGINEER.PHARMACY HELPER Work Phone: OB/Gynecology Comment on above: Encounter for survei llance of contraceptive pills (Primary Dx) Procedures Date Procedure Procedure Detail Performing Clinician Start: 10-10-2024 Urnls dip stick/tabl et reagent auto microscopy No Primary Care Physician Start: 10-05-2024 Urnls dip stick/tabl et rgnt non-auto w/o micrscp Gina Kulkarni TECHNICAL STAFF ENGINEER.CNM Work Phone: Start: 07-12-2024 Us preg uterus after 1st trimest 03/08 gestation Gina Kulkarni TECHNICAL STAFF ENGINEER.CNM Work Phone: Start: 06-28-2024 Antibody screen CURTIS KULKARNI Comment on above: Order Comment: Speci men Type: BLOOD SPECIMENOrdering Facility: [facility] Address: [address] [place] [address] Performed By: #### T SPN ####CC MAIN BLOOD BANKCLIA [id number] [place] [address] [place] Start: 06-28-2024 BACTERIAL VAGINOSIS NAAT Gina Kulkarni TECHNICAL STAFF ENGINEER.CNM Work Phone: Start: 06-28-2024 Iadna chlamydia trac homatis amplified probe tq Gina Kulkarni TECHNICAL STAFF ENGINEER.CNM Work Phone: Start: 06-28-2024 Us uterus l imited 1/> fetuses Gina Kulkarni TECHNICAL STAFF ENGINEER.CNM Work Phone: Start: 06-08-2023 URINE OB DIP [...] 02-16-2023 URINE OB DIP B/O Bita Manrique TECHNICAL STAFF ENGINEER.CNM Work Phone: Start: 02-16-2023 Us preg uterus [...] DTaP,Tdap,Td Vaccine (7 - Td or Tdap) [facility] Start: 06-28-2025 GC (Gonorrhea) Scree meng () GC (Gonorrhea) Screening () [facility] Start: 06-28-2025 Screening for Chlamy grace trachomatis Chlamydia Screening () [facility] Start: 11-06-2024 Influenza vaccination [facility] Start: 11-06-2024 RSV Vaccine (1 - Ris k 1-dose series) RSV Vaccine (1 - Risk 1-dose series) [facility] Start: 10-16-2024 End: 10-16-2024 Patient encounter procedure Maternal Medicine Comment on above: Growth OB Start: 10-10-2024 End: 10-10-2024 [facility] Start: 10-10-2024 Nonstress test [facility] Start: 10-10-2024 Obstetric monitoring [facility] Start: 10-10-2024 Vital signs measurements [facility] Start: 10-10-2024 Patient discharge [facility] Start: 10-10-2024 [facility] Start: 09-11-2024 End: 09-11-2024 Patient encounter procedure 09/11/2024 1:50 PM EDT Routine Office Visit OB/Gynecology [address] [place], [place] [id number] Marium Stevenson MD [address] [place] [address] Glucose/OB OB/Gynecology Comment on above: Glucose/OB Start: 09-11-2024 End: 09-11-2024 ambulatory 09/11/2024 1:30 PM EDT Results Only [place] [facility] [address] [place] [address] Glucose [place] [facility] Comment on above: Glucose Start: 08-11-2024 End: 11-10-2024 ANEMIA REFLEX PANEL ANEMIA REFLEX PANEL Lab Routine Screening for diabetes mellitus Encounter for supervision of high risk in second trimester, antepartum (HCC) Short interval between pregnancies affecting in second trimester, antepartum (HCC) Late care (HCC) Expected: 08/11/2024, Expires: 11/10/2024 [facility] Comment on above: Expected: 08/11/2024 , [...] gestation of (HCC) Expected: 08/11/2024, Expires: 08/11/2025 [facility] Work Phone: Comment on above: Expected: 08/11/2024 , Expires: 08/11/2025 Start: 08-11-2024 End: 08-11-2024 Patient encounter procedure 08/11/2024 2:00 PM EDT Routine Office Visit OB/Gynecology [address] [place] [address] Gina Kulkarni APRN.[facility] [address] [place] [address] OB OB/Gynecology Comment on above: OB Start: 08-11-2024 End: 08-11-2025 SYPHILIS TREPONEMAL W/REFLEX SYPHILIS TREPONEMAL W/REFLEX Lab Routine Screening for diabetes mellitus Encounter for supervision of high risk in second trimester, antepartum (HCC) Short interval between pregnancies affecting in second trimester, antepartum (HCC) Late care (HCC) Expected: 08/11/2024, Expires: 08/11/2025 [facility] Comment on above: Expected: 08/11/2024 , Expires: 08/11/2025 Start: 08-10-2024 End: 08-10-2024 Patient encounter procedure 08/10/2024 10:30 AM EDT Routine Office Visit OB/Gynecology [address] [place] [address] Gina Kulkarni TECHNICAL STAFF ENGINEER.CNM [address] [place] [address] Est New OB OB/Gynecology Comment on above: Est New OB Start: 07-28-2024 End: 07-28-2024 Patient encounter procedure 07/28/2024 8:15 AM EDT Office Visit OB/Gynecology [address] [place] [address] Paulina Chadwick TECHNICAL STAFF ENGINEER.PHARMACY HELPER [address] [place] [address] Annual OB/Gynecology Comment on above: Annual Start: 07-26-2024 End: 07-26-2024 Patient encounter procedure 07/26/2024 10:30 AM EDT Routine Office Visit OB/Gynecology [address] [place] [address] Radha Manrique TECHNICAL STAFF ENGINEER.CNM [address] [place] [address] , OB/Gynecology Comment on above: , Start: 07-12-2024 End: 07-12-2024 Patient encounter procedure [facility]aternal [facility] Comment on above: Anatomy ob Start: 06-28-2024 End: 09-27-2024 ANEMIA REFLEX PANEL [facility] Work Phone: Comment on above: Expected: 06/28/2024 , Expires: 09/27/2024 Start: 06-28-2024 End: 09-27-2024 Chromosome 21 trisomy [Presence] in Blood or Tissue by Cytogenetics [facility] Comment on above: Expected: 06/28/2024 , Expires: 09/27/2024 Start: 06-28-2024 End: 06-28-2025 OBSTETRIC ULTRASOUND [facility]I OBSTETRIC ULTRASOUND [facility]I Anc Imaging Routine with fetus of unknown gestational age (HCC) Expected: 06/28/2024, Expires: 06/28/2025 [facility] Comment on above: Expected: 06/28/2024 , Expires: 06/28/2025 Start: 03-15-2024 End: 03-15-2024 ambulatory 03/15/2024 12:00 PM EST Results Only [facility] [address] [facility] [address] [facility] Start: 03-14-2024 End: 06-13-2024 Bacteria identified in Urine by Culture URINE CULTURE Microbiology Routine UTI symptoms Expected: 03/14/2024, Expires: 06/13/2024 [facility] Work Phone: Comment on above: Expected: 03/14/2024 , Expires: 06/13/2024 Start: 03-14-2024 End: 06-13-2024 Urinalysis complete panel - Urine URINALYSIS, WITH MICROSCOPIC Lab Routine UTI symptoms Expected: 03/14/2024, Expires: 06/13/2024 [facility] Comment on above: Expected: 03/14/2024 , Expires: 06/13/2024 Start: 11-25-2023 Chlamydia Screening (1824) Chlamydia Screening (18-24) [facility] Start: 11-25-2023 GC (Gonorrhea) Scree meng (18-24) GC (Gonorrhea) Screening (18-) [facility] Start: 11-25-2023 Screening for Chlamy grace trachomatis Chlamydia Screening () [facility] Start: 11-07-2023 Covid-19 Vaccine () Covid-19 Vaccine () [facility] Start: 11-07-2023 Influenza vaccination [facility] Start: 09-27-2023 End: 12-27-2023 Hemoglobin A1c in Blood HEMOGLOBIN A1C Lab Routine Abnormal glucose affecting Expected: 09/27/2023, Expires: 12/27/2023 [facility] Work Phone: Comment on above: Expected: 09/27/2023 , Expires: 12/27/2023 Start: 06-18-2023 Patient discharge [facility] Start: 06-17-2023 Administration of medication [facility] Start: 06-17-2023 Application of ice collar, cap or bag [facility] Start: 06-17-2023 Catheterization of vein [facility] Start: 06-17-2023 Introduction of urin ivet catheter [facility] Start: 06-17-2023 Measuring intake and output [facility] Start: 06-17-2023 Notification of physician [facility] Start: 06-17-2023 Procedure discontinued [facility] Start: 06-17-2023 Provision of activit y privileges [facility] Start: 06-17-2023 Vital signs measurements [facility] Start: 06-17-2023 End: 06-17-2023 [facility] Start: 06-17-2023 Documentation procedure [facility] Start: 06-17-2023 Consultation [facility] Start: 06-16-2023 Admission procedure [facility] Start: 06-16-2023 Verification routine [facility] Start: 03-08-2023 Behavioral Health Screening Behavioral Health Screening [facility] Start: 03-08-2023 Depression Assessment Depression Ass essment [facility] Start: 02-16-2023 End: 05-18-2023 CBC W Auto Differential panel - Blood CBC + DIFF Lab Routine Supervision of high risk in second trimester 23 weeks gestation of Expected: 02/16/2023, Expires: 05/18/2023 [facility] Work Phone: Comment on above: Expected: 02/16/2023 , Expires: 05/18/2023 Start: 02-16-2023 End: 05-18-2023 GEST GLUC SCREEN, 1-HR, 50 GM, NON-FASTING GEST GLUC SCREEN, 1-HR, 50 GM, NON-FASTING Lab Routine Supervision of high risk in second trimester 23 weeks gestation of Expected: 02/16/2023, Expires: 05/18/2023 [facility] Work Phone: Comment on above: Expected: 02/16/2023 , Expires: 05/18/2023 Start: 02-16-2023 End: 05-18-2023 SYPHILIS TOTAL W/REFLEX SYPHILIS TOTAL W/REFLEX Lab Routine Supervision of high risk in second trimester 23 weeks gestation of Expected: 02/16/2023, Expires: 05/18/2023 [facility] Work Phone: Comment on above: Expected: 02/16/2023 , Expires: 05/18/2023 Start: 01-21-2023 End: 01-22-2024 OBSTETRIC ULTRASOUND WHI OBSTETRIC ULTRASOUND WHI Anc Imaging Routine Supervision of high risk in second trimester Expected: 01/21/2023, Expires: 01/22/2024 [facility] Work Phone: Comment on above: Expected: 01/21/2023 , Expires: 01/22/2024 Start: 12-22-2022 End: 12-23-2023 OBSTETRIC ULTRASOUND WHI OBSTETRIC ULTRASOUND WHI Anc Imaging Routine 15 weeks gestation of Encounter for care in first trimester of first Expected: 12/22/2022, Expires: 12/23/2023 [facility] Work Phone: Comment on above: Expected: 12/22/2022 , Expires: 12/23/2023 Start: 12-08-2022 End: 02-07-2023 SEQUENTIAL SCN FIRST TRIMESTER [facility] Work Phone: Comment on above: Expected: 12/08/2022 , Expires: 02/07/2023 Start: 12-08-2022 End: 02-07-2023 SEQUENTIAL SCN SECOND TRIM SEQUENTIAL SCN SECOND TRIM Lab Routine Nuchal translucency of fetus on ultrasound Expected: 12/08/2022, Expires: 02/07/2023 [facility] Work Phone: Comment on above: Expected: 12/08/2022 , Expires: 02/07/2023 Start: 11-06-2022 Covid-19 Vaccine ( season) Covid-19 Vaccine ( season) [facility] Start: 11-06-2022 Influenza vaccination Influenza Vacc ine (#1) [facility] Start: 03-08-2022 Depression Assessment Depression Ass essment [facility] Start: 2022 Anxiety Screening Anxiety Screening [facility] Start: 2022 Depression Screening Depression Scre ening [facility] Start: 2022 Hepatitis C Screening Hepatitis C Sc reening [facility] Start: 2022 HIV Screening HIV Screening [facility] Start: 11-06-2021 Influenza vaccination [facility] Start: 2020 Meningococcal B Vacc ine (1 of 2 - Standard) Meningococcal B Vaccine (1 of 2 - Standard) [facility] Start: 2020 Meningococcal B Vacc ine: Consider Based On Risk (1 of 2 - Patient Seeks Protection) Meningococcal B Vaccine: Consider Based On Risk (1 of 2 - Patient Seeks Protection) [facility] Start: 2020 MENINGOCOCCAL CONJUG ATE (1 - 2-dose series) MENINGOCOCCAL CONJUGATE (1 - 2-dose series) [facility] Start: 2020 Meningococcal Conjug ate Vaccine (1 - 2-dose series) Meningococcal Conjugate Vaccine (1 - 2-dose series) [facility] Start: 2020 Meningococcal Conjug ate Vaccine (2 - 2-dose series) Meningococcal Conjugate Vaccine (2 - 2-dose series) [facility] Start: 2019 CHLAMYDIA SCREENING (<18) CHLA MYDIA SCREENING (<18) [facility] Start: 2019 GC (GONORRHEA) SCREE MENG (<18) GC (GONORRHEA) SCREENING (<18) [facility] Start: 2018 PEDS TO ADULT TRANSI TION ANNUAL ASSESSMENT PEDS TO ADULT TRANSITION ANNUAL ASSESSMENT [facility] Start: 05-06-2017 HPV Vaccine (2 - 2-d ose series) HPV Vaccine (2 - 2-dose series) [facility] Start: 2016 Adult depression screening assessment DEPRESSION SCREENING [facility] Start: 12-29-2016 PEDS TO ADULT TRANSI TION INITIAL DISCUSSION PEDS TO ADULT TRANSITION INITIAL DISCUSSION [facility] Start: 2015 HPV VACCINE (1 - 2-d ose series) HPV VACCINE (1 - 2-dose series) [facility] Start: 2015 Urine microalbumin profile [facility] Start: 2014 MENINGOCOCCAL B: Con sales data analyst based on risk (1 of 2 - Risk Bexsero 2-dose series) MENINGOCOCCAL B: Consider based on risk (1 of 2 - Risk Bexsero 2-dose series) [facility] Start: 2013 HPV Vaccine (1 - 2-d ose series) HPV Vaccine (1 - 2-dose series) [facility] Start: 2009 COVID-19 VACCINE (1) COVID-19 VACCIN E (1) [facility] Start: 01-23-2009 VARICELLA (2 of 2 - 2-dose childhood series) VARICELLA (2 of 2 - 2-dose childhood series) [facility] Start: 2004 COVID-19 VACCINE (#1) COVID-19 VACCI NE (#1) [facility] Bacteria identified in Urine by Culture BACTERIAL CULTURE, URINE Microbiology Routine with fetus of unknown gestational age (HCC) 06/28/2024 9:18 AM EDT [facility] Erythrocyte mean corpuscular volume determination [facility] Fibronectin. [Mass/volume] in Vaginal fluid [facility] Hematocrit [Volume Fraction] of Blood [facility] Hemoglobin [Mass/vol ume] in Blood [facility] Leukocytes [#/volume ] in Blood [facility] Mean corpuscular hemoglobin concentration determination [facility] Mean corpuscular hemoglobin determination [facility] Neutrophil count [facility] Neutrophil percent differential count [facility] End: 04-03-2025 OBSTETRIC ULTRASOUND WHI OBSTETRIC ULTRASOUND I Anc Imaging Routine Late care (HCC) Limited care in third trimester ([facility]) 31 weeks gestation of ([facility]) Supervision of high risk in third trimester ([facility]) Once per month for 5 Occurrences starting 10/05/2024 until 04/03/2025 [facility] Work Phone: Comment on above: Once per month for 5 Occurrences starting 10/05/2024 until 04/03/2025 Patient Education [facility] Work Phone: Patient referral [facility] Work Phone: Platelets [#/volume] in Blood [facility] Red blood cell count [facility] Red cell distributio n width determination [facility] ROUTINE, GR OUP B STREP PCR ROUTINE, GROUP B STREP PCR Microbiology Routine 36 weeks gestation of 05/18/2023 10:31 AM EDT [facility] Work Phone: Urine culture [facility] End: 05-14-2025 XR Lumbar spine 3 Views XR LUMBAR GENERAL 3V AP/LAT/L5-S1 Radiology Routine Bony abnormality 1 Occurrences starting 04/14/2024 until 05/14/2025 [facility] Work Phone: Comment on above: 1 Occurrences starti ng 04/14/2024 until 05/14/2025 XR Sacrum and Coccyx 3 Views XR SACRUM/COCCYX 3V AP/LAT Radiology Routine Bony abnormality 04/05/2024 3:58 PM EST [facility] Work Phone: [facility] Immunizations Immunization Date Immunization Notes Care Provider Aisha carpenter 11-06-2016 Human Papillomavirus 9-valent vaccine Whi [facility] 10-31-2008 diphtheria, tetanus toxoids and acellular pertussis vaccine Siomara Milan TECHNICAL STAFF ENGINEER.PHARMACY HELPER Work Phone: [facility] Work Phone: 10-31-2008 hepatitis A vaccine, unspecified formulation Siomara Milan TECHNICAL STAFF ENGINEER.PHARMACY HELPER Work Phone: [facility] Work Phone: 10-31-2008 measles, mumps and rubella virus vaccine Siomara Milan TECHNICAL STAFF ENGINEER.PHARMACY HELPER Work Phone: [facility] Work Phone: 10-31-2008 poliovirus vaccine, inactivated Siomara Milan TECHNICAL STAFF ENGINEER.PHARMACY HELPER Work Phone: [facility] Work Phone: 10-31-2008 varicella virus vaccine Red e Pool TECHNICAL STAFF ENGINEER.[facility] Work Phone: [facility] Work Phone: 08-03-2007 hepatitis A vaccine, unspecified formulation Siomara Milan TECHNICAL STAFF ENGINEER.[facility] Work Phone: [facility] Work Phone: 06-23-2005 diphtheria, tetanus toxoids and acellular pertussis vaccine Siomara Milan TECHNICAL STAFF ENGINEER.[facility] Work Phone: [facility] Work Phone: 06-23-2005 haemophilus influenz ae type b vaccine, HbOC conjugate Siomara Milan TECHNICAL STAFF ENGINEER.[facility] Work Phone: [facility] Work Phone: 06-23-2005 pneumococcal conjuga te vaccine, 7 valent Siomara Pool TECHNICAL STAFF ENGINEER.[facility] Work Phone: [facility] Work Phone: 03-25-2005 hepatitis B vaccine, pediatric or pediatric/adolescent dosage Siomara Milan TECHNICAL STAFF ENGINEER.[facility] Work Phone: [facility] Work Phone: 03-25-2005 varicella virus vaccine Red e Milan TECHNICAL STAFF ENGINEER.[facility] Work Phone: [facility] Work Phone: 03-24-2005 measles, mumps and rubella virus vaccine Siomara Milan TECHNICAL STAFF ENGINEER.PHARMACY HELPER Work Phone: [facility] Work Phone: 2004 diphtheria, tetanus toxoids and acellular pertussis vaccine Siomara Pool TECHNICAL STAFF ENGINEER.[facility] Work Phone: [facility] Work Phone: 2004 haemophilus influenz ae type b vaccine, HbOC conjugate Siomara Milan TECHNICAL STAFF ENGINEER.[facility] Work Phone: [facility] Work Phone: 2004 pneumococcal conjuga te vaccine, 7 valent Siomara Milan TECHNICAL STAFF ENGINEER.PHARMACY HELPER Work Phone: [facility] Work Phone: 2004 poliovirus vaccine, inactivated Siomara Milan TECHNICAL STAFF ENGINEER.PHARMACY HELPER Work Phone: [facility] Work Phone: 2004 diphtheria, tetanus toxoids and acellular pertussis vaccine Siomara Milan TECHNICAL STAFF ENGINEER.PHARMACY HELPER Work Phone: [facility] Work Phone: 2004 haemophilus influenz ae type b vaccine, HbOC conjugate Siomara Pool TECHNICAL STAFF ENGINEER.[facility] Work Phone: [facility] Work Phone: 2004 pneumococcal conjuga te vaccine, 7 valent Siomara Pool TECHNICAL STAFF ENGINEER.[facility] Work Phone: [facility] Work Phone: 2004 poliovirus vaccine, inactivated Siomara Milan TECHNICAL STAFF ENGINEER.[facility] Work Phone: [facility] Work Phone: 2004 diphtheria, tetanus toxoids and acellular pertussis vaccine Siomara Milan TECHNICAL STAFF ENGINEER.PHARMACY HELPER Work Phone: [facility] Work Phone: 2004 haemophilus influenz ae type b vaccine, HbOC conjugate Siomara Pool TECHNICAL STAFF ENGINEER.PHARMACY HELPER Work Phone: [facility] Work Phone: 2004 hepatitis B vaccine, pediatric or pediatric/adolescent dosage Siomara Milan TECHNICAL STAFF ENGINEER.[facility] Work Phone: [facility] Work Phone: 2004 pneumococcal conjuga te vaccine, 7 valent Siomara Pool TECHNICAL STAFF ENGINEER.PHARMACY HELPER Work Phone: [facility] Work Phone: 2004 poliovirus vaccine, inactivated Siomara Pool TECHNICAL STAFF ENGINEER.PHARMACY HELPER Work Phone: [facility] Work Phone: 2004 hepatitis B vaccine, pediatric or pediatric/adolescent dosage Siomara Corrigansharda STARK.PHARMACY HELPER Work Phone: [facility] Work Phone: Payers Date Payer Category Payer Self-pay [id number] 2022 Unknown [id number] 2019 Medicaid [facility] MEDICAID [employer] MEDICAID [id number] 2019-Present [phone] [address] [place] [address] Medicaid [id number] 2019 Medicaid [id number] Unknown [id number] Unknown [id number] Unknown [id number] Social History Date Type Detail Facility Start: 05-08-2019 End: 06-16-2023 Tobacco smoking status NHIS Never smoked tobacco [facility] Start: 05-08-2019 End: 10-27-2021 Tobacco use and exposure Smokeless tobacco non-user [facility] Start: 07-01-2021 End: 08-11-2024 Alcohol intake Lifetime non-drinker (finding) [facility] Start: 05-06-2021 History SDOH Alcohol Frequency 1 [facility] Start: 2004 Sex Assigned At Not on file [facility] Start: 06-21-2021 End: 10-27-2021 Exposure to SARS-CoV-2 (event) Not sure [facility] Work Phone: Start: 11-24-2022 End: 04-05-2024 History of Social function [facility] Start: 11-24-2022 End: 04-05-2024 Tobacco use panel [facility] National Score (1-10 0), lower number is lower risk 89 [facility] Start: 09-18-2022 [facility] Start: 06-16-2023 Tobacco smoking stat us ORIS Unknown if ever smoked [facility] Start: 2004 Sex Assigned At Female [facility] Start: 06-26-2024 Education 13 [facility] Start: 06-26-2024 Gender identity Identifies as female gender (finding) [facility] Start: 06-26-2024 Sexual orientation Heterosexual (juanpablo teresa) [facility] Medical Equipment Procedure Code Equipment Code Equipment Origin al Text Equipment Identifier Dates Use as directed to check glucose levels up to seven times daily. [id number], [id number] Start: 04-13-2023 End: 07-29-2023 Comment on above: Use as directed to c heck glucose levels up to seven times daily. Goals Date Patient Goal Desired Activity /State Personal health goal Personal health goal Clinical Notes 07-01-2021 to 10-06-2024 Telephone Encounter - Alf Trevino RN - 10/06/2024 12:18 PM EDTTelephone Encounter - Alf Trevino RN - 10/06/2024 12:18 PM EDTPatient InstructionsMoCrista villagomez, TECHNICAL STAFF ENGINEER.PHARMACY HELPER - 09/17/2024 8:50 AM EDT Note Date & Type Note Facility 10-06-2024 Telephone encount er Note 3rd risk assessment form submitted 10/06/24 Alf Trevino RN [facility] 10-06-2024 Miscellaneous Notes Formattin g of this note might be different from the original. 3rd risk assessment form submitted 10/06/24 Alf Trevino RN documented in this encounter [facility] 10-05-2024 Progress note Formatting of t [...] and refusal of GCT Gina Kulkarni APRN.CNM [facility] 10-05-2024 Miscellaneous Notes Formattin g of [...] Gina Kulkarni APRN.CNM documented in this encounter [facility] 10-05-2024 Instructions Margarita Gibbs MA - 10/05/2024 9:50 AM EDT SEQUENTIAL SCREENINGS The [facility] offers sequential screenings for women who [...] It will require an appointment with our mechatronics technician. This is not an ultrasound performed [...] the above symptoms, contact our office at [phone] and ask to speak with a nurse. After hours, you can call doctors registry at [phone] OR call [facility] at [phone] and ask to have the doctor pottery decoration designer paged. If you consider this an emergency, dial 8-8-5 or go to your nearest emergency department. NEED HELP? Are you dealing with a violent or abusive relationship? Are you a victim of rape or sexual assult? Call [facility] ([place]) 24 hour Crisis Hotline: 458.390.3859 or 274-152-6968. MANUAL Your Guide to a Healthy manual is now on-line. Visit the [email or web address] [email or web address] to download your free copy documented in this encounter [facility] 09-17-2024 Note HNO ID: [id number] Author: CRISTA VASQUEZ APRN.PHARMACY HELPER Service: ? Author Type: Nurse Practitioner Type: Progress Notes Filed: 09/17/2024 08:54 Note Text: This note was created using [employer]. Subjective Jimmy Lema is a 19 year [...] she will return for reevaluation. Crista Vasquez APRN.[facility] 09-17-2024 History of Presen t illness Narrative This note was created using [employer]. Subjective Jimmy Lema is a 19 year [...] she will return for reevaluation. Crista Vasquez APRN.PHARMACY HELPER documented in this encounter [facility] 08-14-2024 Telephone encount er Note 2nd risk assessment form submitted 08/14/24 Alf Trevino RN [facility] 08-14-2024 Miscellaneous Notes Formattin g of this note might be different from the original. 2nd risk assessment form submitted 08/14/24 Alf Trevino RN documented in this encounter [facility] 08-11-2024 Progress note Formatting of t [...] or sooner if needed Gina Kulkarni APRN.CNM [facility] 08-11-2024 Miscellaneous Notes Formattin g of [...] Gina Kulkarni APRN.CNM documented in this encounter [facility] 08-11-2024 Instructions Gina Kulkarni APRN.CNM - 08/11/2024 1:42 PM EDT SEQUENTIAL SCREENINGS The [facility] offers sequential screenings for women who [...] It will require an appointment with our mechatronics technician. This is not an ultrasound performed by a physician in our office during a routine visit. The Fresh Test Purchase 50 gm pouch at [facility] Bring with 10 oz water [...] the above symptoms, contact our office at [phone] and ask to speak with a nurse. After hours, you can call doctors registry at [phone] OR call [facility] at [phone] and ask to have the doctor pottery decoration designer paged. If you consider this an emergency, dial 2-4-2 or go to your nearest emergency department. NEED HELP? Are you dealing with a violent or abusive relationship? Are you a victim of rape or sexual assult? Call [facility] ([place]) 24 hour Crisis Hotline: 792.319.8077 or 095-616-7463. MANUAL Your Guide to a Healthy manual is now on-line. Visit the [email or web address] [email or web address] to download your free copy documented in this encounter [facility] 07-12-2024 Instructions Kisha Da Silva MA - 07/12/2024 3:54 PM EDT SEQUENTIAL SCREENINGS The [facility] offers sequential screenings for women who [...] It will require an appointment with our mechatronics technician. This is not an ultrasound performed [...] the above symptoms, contact our office at [phone] and ask to speak with a nurse. After hours, you can call doctors registry at [phone] OR call [facility] at [phone] and ask to have the doctor pottery decoration designer paged. If you consider this an emergency, dial 9-1-8 or go to your nearest emergency department. NEED HELP? Are you dealing with a violent or abusive relationship? Are you a victim of rape or sexual assult? Call [facility] ([place]) 24 hour Crisis Hotline: 307.660.4055 or 939-909-7616. MANUAL Your Guide to a Healthy manual is now on-line. Visit the [email or web address] [email or web address] to download your free copy documented in this encounter [facility] 07-12-2024 Note HNO ID: [id number] Author: PAULINA CHADWICK APRN.PHARMACY HELPER Service: ? Author Type: Nurse Practitioner Type: [...] risk in second trimester, antepartum ([facility]) - ICD9: V23.9, ICD10: O09.92 (primary diagnosis) - Continue LDA and PNV 2. 19 weeks gestation of ([facility]) - ICD9: V22.2, ICD10: Z3A.19 - Anatomy ultrasound today, report pending 3. Short interval between pregnancies affecting in second trimester, antepartum ([facility]) - ICD9: V23.89, ICD10: O09.892 - 06/2023 4. Rubella non-immune status, antepartum ([facility]) - ICD9: 646.83, V15.83, ICD10: O09.899, Z28.39 - Reviewed - Recommend MMR PTL precautions reviewed. RTO in 4 weeks or sooner as needed. Paulina Chadwick APRN.[facility] 07-12-2024 History of Presen t illness Narrative [...] risk in second trimester, antepartum ([facility]) - ICD9: V23.9, ICD10: O09.92 (primary diagnosis) - Continue LDA and PNV 2. 19 weeks gestation of ([facility]) - ICD9: V22.2, ICD10: Z3A.19 - Anatomy ultrasound today, report pending 3. Short interval between pregnancies affecting in second trimester, antepartum ([facility]) - ICD9: V23.89, ICD10: O09.892 - 06/2023 4. Rubella non-immune status, antepartum ([facility]) - ICD9: 646.83, V15.83, ICD10: O09.899, Z28.39 - Reviewed - Recommend MMR PTL precautions reviewed. RTO in 4 weeks or sooner as needed. Paulina Chadwick APRN.CNP documented in this encounter [facility] 06-28-2024 Progress note Formatting of t his note might be different from the original. Patient is at 17 weeks gestation here for NOB appointment. on 06/17/23. Patient reports she did not know she was until a couple of weeks ago when she started feeling movements. Gina Kulkarni APRN.CNM [facility] 06-28-2024 Miscellaneous Notes Formattin g of this note might be different from the original. Patient is at 17 weeks gestation here for NOB appointment. on 06/17/23. Patient reports she did not know she was until a couple of weeks ago when she started feeling movements. Gina Kulkarni APRN.CNM documented in this encounter [facility] 06-26-2024 Note HNO ID: [id number] Author: GINA KULKARNI APRN.CNM Service: ? Author Type: Rubber Compounder Type: Progress Notes Filed: 06/28/2024 09:25 Note Text: Vinegar Maker offered: Patient declines. INITIAL OB ASSESSMENT HPI: [...] Rash, Itching JOE (more content not included)... [facility] 06-26-2024 History of Presen t illness Narrative Vinegar Maker offered: Patient declines. INITIAL OB ASSESSMENT HPI: [...] Partner: Name: Julio César Age: 20 Occupation: Sales/[employer] Gender: Male PAST MEDICAL HISTORY Diagnosis Date [...] discussed with the Patient or Patient's Authorized Air Traffic Control Operator. As applicable, any other physician, advance practice provider, medical student, or other health professional student that will be observing or involved in the sensitive examination for educational or training purposes was discussed with the Patient or Authorized Air Traffic Control Operator. The Patient or Authorized Air Traffic Control Operator has agreed to proceed with the sensitive [...] Your guide to a health and the Hand Leather Trimmer. 2) Screening: Hemoglobin A1C: ordered Baby Aspirin: [...] Gina Kulkarni APRN.CNM documented in this encounter [facility] 06-26-2024 Instructions Rosi Pascual MA - 06/26/2024 2:29 PM EDT Please select the following link to access the [facility] Your Guide to a Healthy . [email or web address] roro documented in this encounter [facility] 04-14-2024 Telephone encount er Note Patient notified, voiced understanding. Local personnel scheduler states not able to schedule for medical spine center so scheduling number provided to patient (please call [phone] for scheduling ) Priscila Chaudhry RN [facility] 04-14-2024 Miscellaneous Notes Formattin g of this note might be different from the original. Patient notified, voiced understanding. Local personnel scheduler states not able to schedule for medical spine center so scheduling number provided to patient (please call [phone] for scheduling ) Priscila Chaudhry RN Please [...] PA-C Sent: 04/13/2024 6:42 AM EST To: [facility] Peds First Floor Pool Was patient ever able to get scheduled with Ortho? Either through [facility] or a more local provider? Given lack of neurological sequelae and x-ray imaging results, it seems Orthopedics would be most appropriate at this time. Diana Velazquez PA-C Please advise regarding patient's report of needing to see neurology.(awaiting further info from patient) documented in this encounter [facility] 04-14-2024 Telephone encount er Note Please let patient know I e-consulted Orthopedics. It was advised that patient obtain additional x-ray imaging (lumbar spine series - has been ordered) and a new consult has been placed for the medical spine center per their recommendations. Please assist patient with scheduling. Diana Velazquez PA-C [facility] 04-14-2024 Note HNO ID: [id number] Author: DONALD DE LA TORRE PA-C Service: ? Author Type: Physician Exchange Teller Type: Progress Notes Filed: 04/14/2024 12:33 Note [...] De La Torre PA-C April 14, 2024 [facility] 04-14-2024 History of Presen t illness Narrative [...] April 14, 2024 documented in this encounter [facility] 04-14-2024 Telephone encount er Note Patient does not need to see Neurology. E-consult placed to Orthopedics. Diana Velazquez PA-C [facility] 04-13-2024 Telephone encount er Note Is pt needing to go to neurology? [facility] 04-13-2024 Telephone encount er Note per [...] to see neurology.(awaiting further info from patient) [facility] 04-07-2024 Telephone encount er Note Patient was notified of advice and/or results. Pt is unable to schedule at this time and will call back when able. 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 Consult placed for Ortho/Sports medicine for further evaluation. Diana Velazquez PA-C [facility] 04-05-2024 History of Presen t illness [...] PATIENT PRESENTS WITH AN IMPLANTABLE OR ATTACHED STEEL SASH ERECTOR: No RADIOLOGY DEPARTMENT: General X-ray: Exam(s) Completed: Spine X-Ray(s): Sacrum/Coccyx PERIPHERAL IV DATA: Not applicable SIGNED BY: RT Juancarlos(Darren) April 05, 2024 3:44 PM documented in this encounter [facility] 04-05-2024 Note HNO ID: [id number] Author: KALLI GARCÍA RT(R) Service: ? Author Type: Hat Brim Curler Type: Progress Notes Filed: 04/05/2024 15:56 Note [...] PATIENT PRESENTS WITH AN IMPLANTABLE OR ATTACHED STEEL SASH ERECTOR: No RADIOLOGY DEPARTMENT: General X-ray: Exam(s) Completed: Spine X-Ray(s): Sacrum/Coccyx PERIPHERAL IV DATA: Not applicable SIGNED BY: RT Juancarlos(R) April 05, 2024 3:44 PM [facility] 04-05-2024 Note HNO ID: [id number] Author: VELAZQUEZ, DIANA, PA-C Service: ? Author Type: Physician Exchange Teller Type: Progress Notes Filed: 04/13/2024 06:39 Note [...] NAME:Jimmy Lema DATE: 04/05/2024 TIME: 3:11 PM [facility] 04-05-2024 History of Presen t illness [...] TIME: 3:11 PM documented in this encounter [facility] 03-16-2024 Telephone encount er Note Pt notified and voiced understanding. Chi Galdamez RN [facility] 03-16-2024 Miscellaneous Notes Formattin g of this note might be different from the original. Pt notified and voiced understanding. Chi Galdamez RN Based on urinalysis it does appear the patient has a urinary tract infection Macrobid into drug [facility] [place] in [place]. Please notify patient. Siomara Lanza APRN.CNP documented in this encounter [facility] 03-16-2024 Telephone encount er Note Based on urinalysis it does appear the patient has a urinary tract infection Macrobid into drug [place] in [place]. Please notify patient. Siomara Lanza APRN.CNP [facility] 03-14-2024 Telephone encount er Note Orders filed. Please contact pt. Siomara Lanza APRN.CNP [facility] 03-14-2024 Miscellaneous Notes Formattin g of this note might be different from the original. Orders filed. Please contact pt. Siomara Milan, TECHNICAL STAFF ENGINEER.PHARMACY HELPER Orders pending documented in this encounter [facility] 03-14-2024 Telephone encount er Note Orders pending [facility] 09-30-2023 Telephone encount er Note Faxed [facility] 09-30-2023 Miscellaneous Notes Formattin g of this note might be different from the original. Faxed Received breast pump RX from [address] [place] [address]. To IRWIN to sign. Marium Patel RN documented in this encounter [facility] 09-29-2023 Telephone encount er Note Received breast pump RX from [address] [place] [address]. To IRWIN to sign. Marium Patel RN [facility] 09-06-2023 Telephone encount er Note Can you address? [facility] 09-06-2023 Miscellaneous Notes Formattin g of this note might be different from the original. Can you address? documented in this encounter [facility] 09-02-2023 Telephone encount er Note Faxed [facility] 09-02-2023 Miscellaneous Notes Formattin g of this note might be different from the original. Faxed Received faxed order for breast pump from [employer]. Order form on Dr. Alhaji thomas for signature. documented in this encounter [facility] 09-02-2023 Telephone encount er Note Received faxed order for breast pump from [employer]. Order form on Dr. Alhaji thomas for signature. [facility] 07-29-2023 Instructions Paulina Chadwick APRN.CNP - 07/29/2023 8:58 AM EDT Constipation - Docusate sodium 200 mg or Dara-colace 2 tablets at bedtime. Add Miralax in the morning as needed. documented in this encounter [facility] 07-29-2023 History of Presen t illness Narrative VISIT Jimmy Lema is a 18 year old year old here for visit. Delivery Summary: on 06/17/23 (elective induction), 8lb 3oz, bilateral labial laceration with repair ROS/ Recovery: Feeding: Breast feeding problems: None Menses since delivery: has not had any more bleeding Menstrual pattern prior to : Regular periods [place] since delivery: Not resumed Depression: denies symptoms [...] external genitalia normal, normal Bartholin's glands, urethra, [place]'s glands, no vulvar lesions, no cervical lesions, [...] Recommend follow up with PCP Paulina Chadwick APRN.PHARMACY HELPER documented in this encounter [facility] 06-18-2023 Hospital Discharg e instructions Additional Instructions Date of Discharge: 06/18/23 [facility] Work Phone: 06-18-2023 Discharge summary Note Date/Time June 18, 2023 7:27am [facility] Medical Records Department [address] [place] [address] Discharge Summary 06/18/23 0725 MR#: [id number] Acct: [id number] Name: JIMMY LEMA Rep #:[id number] : 2005 18 From: Marium Stevenson MD PCP: Care Physician,No Primary Status :ADM IN Location: XU768-1 Providers Date of Admission: 06/16/23 Date of [...] Stevenson MD; No Primary Care Physician~ Signed [facility] Work Phone: 1(759) 316-941904-12-2024 Progress note Author Marium Stevenson [facility] June 18, 2023 7:22am Note Date/Time June 18, 2023 7:2 2am [facility] Medical Records Department [address] [place], [place] [address] [place] [address] Progress Note - OBGYN 06/18/2321 MR#: [id number] Acct: [id number] Name: JIMMY LEMA Rep #:[id number] : 2005 18 From: Marium Stevenson MD PCP: Care Physician,No Primary Status :ADM IN Location: XC218-8 Subjective Subjective Feels good. No complaints. Breast [...] Cosigner Signature (if applicable): CC: ~ Signed [facility] Work Phone: 1(752) 640-428804-12-2024 [facility] Medical Records Department [address] [place] [address] Discharge Summary 06/18/23724 MR#: [id number] Acct: [id number] Name: JIMMY LEMA Rep #: [id number] : 2005 18 From: Marium Stevenson MD PCP: Care Physician,No Primary Status:ADM IN Location: TI292-8 Providers Date of Admission: 06/16/23 Date of [...] Marium Stevenson MD; No Primary Care Physician [facility] History of Present illness Narrative * Marium Patel RN - 06/17/2023 2:05 PM EDT Patient delivered via at [facility] on 06/17/23 per Marium Stevenson MD. See OB Outcome note. Marium Patel RN [facility]04-11-2024 Progress note Author Marium Stevenson [facility] June 17, 2023 8:28am Note Date/Time June 17, 2023 8:2 2am [facility] Medical Records Department [address] [place] [address] Progress Note - OBGYN 06/17/23 0817 MR#: [id number] Acct: [id number] Name: JIMMY LEMA Rep #:[id number] : 2005 18 From: Marium Stevenson MD PCP: Care Physician,No Primary Status :ADM IN Location: [place] 791036-1 Subjective Subjective AROM for clear fluid. Comfortable [...] 75.7 H, Lymph % (Auto) 14.0 L, Burt % (Auto) 8.1, Eos % (Auto) 0.3, [...] Cosigner Signature (if applicable): CC: ~ Signed [facility] Work Phone: 1(343) 456-879304-11-2024 History and physical note Author Gina Kulkarni [facility] June 16, 2023 11:13pm Note Date/Time June 16, 2023 8:1 4pm [facility] Medical Records Department [address] [place] [address] H&P Exam - POLICY ISSUE CLERK 06/16/232006 MR#: [id number] Acct: [id number] Name: JIMMY LEMA Rep #:[id number] : 2005 18 From: Gina Kulkarni CNM PCP: Care Physician,No Primary Status :ADM IN Location: TU471-6 HPI - General General Date of Admission: 06/16/23 HPI Narrative JIMMY LEMA, is a 18 F at 40.5 weeks gestation who presents for an elective induction of labor. Maternal Data Information JEFFERY Calculator Estimated Delivery Date Method Current WG Current Estimate 06/11/23 Manual 40w 5d [facility] Medical History (Updated 06/16/23 @ 20:11 by [...] of admission and is collaborating physician 06/16/23 5456 <Electronically signed by Gina Kulkarni CNM> Cosigner Signature (if applicable): CC: ARELIS Kulkarni; No Primary Care Physician~ Signed [facility] Work Phone: 1(601) 700-842304-11-2024 Progress note Author Gina Kulkarni [facility] June 16, 2023 11:11pm Note Date/Time June 16, 2023 11: 11pm [facility] Medical Records Department [address] [place] [address] Progress Note - OBGYN 06/16/23 2309 MR#: [id number] Acct: [id number] Name: JIMMY LEMA Rep #:[id number] : 2005 18 From: Gina Kulkarni CNM PCP: Care Physician,No Primary Status :ADM IN Location: UT541-3 Subjective Subjective Patient seen at bedside. Denies [...] 75.7 H, Lymph % (Auto) 14.0 L, Burt % (Auto) 8.1, Eos % (Auto) 0.3, [...] 30 cc N/S Cat. 1 tracing 06/16/23 3366 <Electronically signed by Gina Kulkarni CNM> Cosigner Signature (if applicable): CC: ~ Signed [facility] Work Phone: 1(719) 449-739604-02-2024 Miscellaneous Notes* Quick Notes - Kari Mane [...] labor precautions reviewed, Kick counts reviewed. Kari Maen MD [facility] Instructions* Patient Instructions* Margarita Gibbs MA - 06/08/2023 11:17 AM EDT SEQUENTIAL SCREENINGS The [facility] offers sequential screenings for women who [...] testing. It will require an appointment withour mechatronics technician. This is not an ultrasound performed [...] the above symptoms, contact our office at [phone] and ask to speak with anurse. After hours, you can call doctors registry at [phone] OR call [facility] at [phone] ask to have the doctor pottery decoration designer paged. If you consider this an emergency, dial 2--0 or go to your nearest emergency department. NEED HELP? Are you dealing with a violent or abusive relationship? Are you a victim of rape or sexual assult? Call [facility] ([place]) 24 hour Crisis Hotline: 887.889.9455 or 870-997-7848. MANUAL Your Guide to a Healthy manual is now on-line. Visit the [email or web address] to download your free copy documented [facility] Miscellaneous Notes* Quick Notes - Kari [...] reviewed. Kari Mane MD documented in [facility]03-[facility]24 Instructions* Patient Instructions* Marah Snyder MA - 06/01/2023 11:26 AM EDT SEQUENTIAL SCREENINGS The [facility] offers sequential screenings for women who [...] testing. It will require an appointment withour mechatronics technician. This is not an ultrasound performed [...] the above symptoms, contact our office at [phone] and ask to speak with anurse. After hours, you can call doctors registry at [phone] OR call [facility] at [phone] ask to have the doctor pottery decoration designer paged. If you consider this an emergency, dial 9-1-1 or go to your nearest emergency department. NEED HELP? Are you dealing with a violent or abusive relationship? Are you a victim of rape or sexual assult? Call [facility] ([place]) 24 hour Crisis Hotline: 853.179.4091 or 545-852-3565. MANUAL Your Guide to a Healthy manual is now on-line. Visit the [email or web address] to download your free copy [facility] History of Present illness Narrative* Marah Stallings MA - 05/31/2023 10:09 AM EDT POPULATION HEALTH NAVIGATION OUTREACH Action/I 1st attempt: Called and left message to call back to discuss forestry conservation worker. message sent. Reason for Outreach Medicaid OB/Peds Care Gaps due: N/A Patient Contacted: Unable or unnecessary to reach patient: Left message MyChart message sent Navigation Signature: Marah Oakes MA May 31, 2023 10:10 AM documented in this encounterL[facility]03-[facility]24 Miscellaneous Notes* Quick Notes - Kari [...] reviewed. Kari Mane MD documented in [facility]03-19-[facility]24 Instructions* Patient Instructions* Brandon Gilman MA - 05/25/2023 1:24 PM EDT SEQUENTIAL SCREENINGS The [facility] offers sequential screenings for women who [...] testing. It will require an appointment withour mechatronics technician. This is not an ultrasound performed [...] the above symptoms, contact our office at [phone] and ask to speak with anurse. After hours, you can call doctors registry at [phone] OR call [facility] at [phone] ask to have the doctor pottery decoration designer paged. If you consider this an emergency, dial 9-4-4 or go to your nearest emergency department. NEED HELP? Are you dealing with a violent or abusive relationship? Are you a victim of rape or sexual assult? Call [facility] ([facility] 24 hour Crisis Hotline: 355.686.7449 or 768-379-8530. MANUAL Your Guide to a Healthy manual is now on-line. Visit the [email or web address] to download your free copy documented in this encounterL[facility]03-12-2024 Miscellaneous Notes* Quick Notes - Gemma [...] . Gemma Reaves M.D. documented in this encounterL[facility]03-12-2024 Instructions* Patient Instructions* Mamie Olivarez MA - 05/18/2023 10:01 AM EDT SEQUENTIAL SCREENINGS The [facility] offers sequential screenings for women who [...] testing. It will require an appointment withour mechatronics technician. This is not an ultrasound performed [...] the above symptoms, contact our office at [phone] and ask to speak with anurse. After hours, you can call doctors registry at [phone] OR call [facility] at [phone] ask to have the doctor pottery decoration designer paged. If you consider this an emergency, dial 9-1-7 or go to your nearest emergency department. NEED HELP? Are you dealing with a violent or abusive relationship? Are you a victim of rape or sexual assult? Call [facility] ([place]) 24 hour Crisis Hotline: 853.649.3512 or 080-475-8069. MANUAL Your Guide to a Healthy manual is now on-line. Visit [email or web address] to download your free copy documented in this encounterL[facility]02-27-[facility]24 Miscellaneous Notes* Telephone Encounter - Kari Mane MD - 05/04/2023 10:36 AM EST Patient had visit today. Kari Mane MD * Telephone Encounter - Marium Patel, ELIEL - 05/03/2023 1:17 PM EST 34w3d Patient has OB visit with IRWIN on 05/04 documented in this encounterL[facility]02-27-2024 Miscellaneous Notes* Quick Notes - Kari [...] reviewed. Kari Mane MD documented in this encounterL[facility]02-27-2024 Instructions* Patient Instructions* Marah Snyder MA - 05/04/2023 9:46 AM EST SEQUENTIAL SCREENINGS The [facility] offers sequential screenings for women who [...] testing. It will require an appointment withour mechatronics technician. This is not an ultrasound performed [...] the above symptoms, contact our office at [phone] and ask to speak with anurse. After hours, you can call doctors registry at [phone] OR call [facility] at [phone] ask to have the doctor pottery decoration designer paged. If you consider this an emergency, dial 9-1-5 or go to your nearest emergency department. NEED HELP? Are you dealing with a violent or abusive relationship? Are you a victim of rape or sexual assult? Call [facility] [place] ([facility] 24 hour Crisis Hotline: 956.946.1376 or 022-749-4031. MANUAL Your Guide to a Healthy manual is now on-line. Visit the [email or web address] to download your free copy documented in this encounterL[facility] Hospital02-13-2024 Miscellaneous Notes* Telephone Encounter - Johnna Perez LPN - 04/20/2023 1:05 PM EST Message viewed per pt. Johnna Perez LPN * Telephone Encounter - Johnna Perez LPN - 04/20/2023 10:47 AM EST Please see pt's Syntricity message and advise further. Johnna Perez LPN * Telephone Encounter - Siomara Lanza APRN.PHARMACY HELPER - 04/20/2023 10:44 AM EST Needs reviewed by an OB provider. Siomara Lanza APRN.PHARMACY HELPER * Telephone Encounter - Johnna Perez LPN - 04/20/2023 10:29 AM EST Please see pt's Syntricity message and further advise. Johnna Perez LPN documented in this encounterL[facility]02-13-2024 Miscellaneous Notes* Quick Notes - Gemma [...] prn Gemma Reaves M.D. documented in this encounterLima [facility] Hospital02-13-2024 Instructions* Patient Instructions* Margarita Gibbs Ma - 04/20/2023 9:33 AM EST SEQUENTIAL SCREENINGS The [facility] offers sequential screenings for women who [...] testing. It will require an appointment withour mechatronics technician. This is not an ultrasound performed [...] the above symptoms, contact our office at [phone] and ask to speak with anurse. After hours, you can call doctors registry at [phone] OR call [facility] at [phone] ask to have the doctor pottery decoration designer paged. If you consider this an emergency, dial 9-1-8 or go to your nearest emergency department. NEED HELP? Are you dealing with a violent or abusive relationship? Are you a victim of rape or sexual assult? Call [facility] [place] ([facility] 24 hour Crisis Hotline: 874.957.7862 or 018-012-4673. MANUAL Your Guide to a Healthy manual is now on-line. Visit [email or web address] to download your free copy documented in this encounterL[facility]02-05-2024 Miscellaneous Notes* Telephone Encounter - Christal Lane RN - 04/12/2023 9:29 AM EST 31w3d today. Next visit 04/20 with RR. documented in this encounterLima [facility] Hospital12-12-2023 Miscellaneous Notes* Quick Notes - Siomara Lanza APRN.CNP - 02/16/2023 2:57 PM EST RM-Pt doing well. Denies vaginal Bleeding, Leaking fluid, or regular Contractions. Pt reports good movement Physical Exam: Gen: no apparent distress Abd: soft, Gravid. Non tender to palpation. See flow sheet RTO 4 weeks, GCT for next visit. Siomara Lanza APRN.PHARMACY HELPER documented in this encounterLima [facility] Hospital12-12-2023 Instructions* Patient Instructions* Brandon Gilman Cma - 02/16/2023 2:30 PM EST SEQUENTIAL SCREENINGS The [facility] offers sequential screenings for women who [...] testing. It will require an appointment withour mechatronics technician. This is not an ultrasound performed [...] the above symptoms, contact our office at [phone] and ask to speak with anurse. After hours, you can call [employer] [facility] at [phone] OR call [facility] at [phone] ask to have the doctor pottery decoration designer paged. If you consider this an emergency, dial 9-1-1 or go to your nearest emergency department. NEED HELP? Are you dealing with a violent or abusive relationship? Are you a victim of rape or sexual assult? Call [facility] ([place]) 24 hour Crisis Hotline: 892.849.3109 or 724-507-2129. MANUAL Your Guide to a Healthy manual is now on-line. Visit the [email or web address] to download your free copy documented in this encounterLima [facility] Hospital11-21-2023 Miscellaneous Notes* Telephone Encounter - Christal [...] time limits for draw. documented in this encounterLima [facility] Hospital11-16-2023 Miscellaneous Notes* Telephone Encounter - Christal [...] survey Kari Mane MD documented in this encounterLima [facility] Hospital11-15-2023 Miscellaneous Notes* Quick Notes - Gemma [...] . Gemma Reaves M.D. documented in this encounterLima [facility] Hospital11-15-2023 Instructions* Patient Instructions* Margarita Gibbs Ma - 01/20/2023 2:14 PM EST SEQUENTIAL SCREENINGS The [facility] offers sequential screenings for women who [...] testing. It will require an appointment withour mechatronics technician. This is not an ultrasound performed [...] the above symptoms, contact our office at [phone] and ask to speak with anurse. After hours, you can call doctors registry at [phone] OR call [facility] at [phone] ask to have the doctor pottery decoration designer paged. If you consider this an emergency, dial 1-7-4 or go to your nearest emergency department. NEED HELP? Are you dealing with a violent or abusive relationship? Are you a victim of rape or sexual assult? Call [facility] ([place]) 24 hour Crisis Hotline: 546.141.4582 or 923-927-2401. MANUAL Your Guide to a Healthy manual is now on-line. Visit [email or web address] to download your free copy documented in this encounterL[facility] Hospital10-17-2023 Miscellaneous Notes* Quick Notes - Kari [...] ordered Kari Mane MD documented in this encounterLima City Hospital10-17-2023 Instructions* Patient Instructions* Marah Snyder MA - 12/22/2022 2:36 PM EDT SEQUENTIAL SCREENINGS [facility] offers sequential screenings for women who [...] testing. It will require an appointment withour mechatronics technician. This is not an ultrasound performed [...] the above symptoms, contact our office at [phone] and ask to speak with anurse. After hours, you can call doctors registry at [phone] OR call [facility] at [phone] ask to have the doctor pottery decoration designer paged. If you consider this an emergency, dial 4-6-5 or go to your nearest emergency department. NEED HELP? Are you dealing with a violent or abusive relationship? Are you a victim of rape or sexual assult? Call [facility] ([place]) 24 hour Crisis Hotline: 521.411.4378 or 683-676-2220. MANUAL Your Guide to a Healthy manual is now on-line. Visit [email or web address] to download your free copy documented [facility] encounter[facility] Miscellaneous Notes* Telephone Encounter - Siomara Lanza APRN.CNP - 12/08/2022 9:27 AM EDT Orders filed. Siomara Lanza APRN.CNP * Telephone Encounter - Marium Patel RN - 12/08/2022 8:54 AM EDT Please file. documented in this encounterL[facility]09-21-[facility]23 Miscellaneous Notes* Telephone Encounter - Jazmine [...] record. Siomara Lanza APRN.CNP documented in this encounterLima City [facility]08-22-[facility]22 History of Present illness Narrative* Siomara [...] OB History No obstetric history on file. Settlement Technician History LMP: 10/21/2021, Having periods Age at Menarche: Age at First : Age at Menopause: Settlement Technician History Comments: Sexual Activity: Never; No partner [...] which included preparing to see the patient, [id number] patient care, completing clinical documentation, obtaining and/or reviewing separately obtained history, counseling and educating the patient/family/caregiver, and ordering medications, tests, or procedures. documented in this encounterLima City [facility]08-19-2022 Miscellaneous Notes* Telephone Encounter - Darline Lehman RN - 10/24/2021 2:18 PM EDT The following approved medications have been transmitted electronically. Requested Prescriptions Signed Prescriptions Disp Refills norgestimate 0.25 mg-ethinyl estradiol 35 mcg (SPRINTEC) 0.25-35 mg-mcg per tablet 28 tablet 0 Sig: Take 1 tablet by mouth once daily. Authorizing Provider: SIOMARA LANZA Pharmacy Information Pharmacy Address [phone] [place], [place] [id number] Darline Lehman RN * Telephone Encounter - [...] patient. Christal Lane RN documented in this encounterL[facility]04-26-[facility]22 History of Present illness Narrative* Siomara [...] which included preparing to see the patient, [id number] patient care, completing clinical documentation, obtaining and/or reviewing separately obtained history, counseling and educating the patient/family/caregiver and ordering medications, tests, or procedures. [facility]City [facility]* Diagnosis Encounter for surveillance of contraceptive pills- Primary Surveillance of previously prescribed contraceptive pill [facility]* Diagnosis Encounter for surveillance of contraceptive pills- Primary Surveillance of previously prescribed contraceptive pill [facility]* Diagnosis GBS bacteriuria [facility] [place] [facility]* Diagnosis Nuchal translucency of fetus on ultrasound- Primary Abnormal findings on screening [facility]* Diagnosis 15 weeks gestation of - Primary state, incidental Encounter for care in first trimester of first [facility]* Diagnosis 19 weeks gestation of - Primary state, incidental Encounter for supervision of normal first in second trimester Supervision of normal first [facility] [place] [facility]* Diagnosis Encounter for anatomic survey- Primary Encounter for care in first trimester of first 19 weeks gestation of state, incidental [facility]* Diagnosis Supervision of high risk in second trimester- Primary Unspecified high-risk [facility]* Diagnosis Supervision of high risk in second trimester- Primary Unspecified high-risk 23 weeks gestation of state, incidental [facility] [place] [facility]* Diagnosis Encounter for follow-up ultrasound of anatomy- Primary 23 weeks gestation of state, incidental [facility]* Diagnosis Abnormal glucose in , antepartum- Primary Abnormal maternal glucose tolerance, antepartum [facility] [place] [facility]* Diagnosis Supervision of high risk in third trimester- Primary Unspecified high-risk Abnormal glucose in , antepartum Abnormal maternal glucose tolerance, antepartum 32 weeks gestation of state, incidental [facility]* Diagnosis Abnormal glucose tolerance in [facility]* Diagnosis 34 weeks gestation of - Primary state, incidental Abnormal glucose tolerance in Supervision of high risk in third trimester Unspecified high-risk [facility]* Diagnosis 36 weeks gestation of - Primary state, incidental Supervision of high risk in third trimester Unspecified high-risk [facility] [place] [facility]* Diagnosis Supervision of high risk in third trimester- Primary Unspecified high-risk Abnormal glucose tolerance in 37 weeks gestation of state, incidental [facility] [place] [facility]* Diagnosis 38 weeks gestation of - Primary state, incidental Supervision of high risk in third trimester Unspecified high-risk [facility] [place] [facility]* Diagnosis Supervision of high risk in third trimester- Primary Unspecified high-risk 39 weeks gestation of state, incidental Abnormal glucose tolerance in Anemia complicating , third trimester [facility] [place] [facility]* Diagnosis Onset Date Resolution Status 40 weeks gestation of acute Anemia affecting a cute Encounter for elective induction of labor acute GBS bacteriuria acute High risk teen acu te History of elevated glucose acute (spontaneous vaginal delivery) acute [facility] Work Phone: Evaluation note* Diagnosis care and examination- Primary Routine follow-up Abnormal glucose affecting Constipation, unspecified constipation type Sacral mass Disorders of sacrum documented [facility] [place] [facility]* Diagnosis UTI symptoms- Primary Other symptoms involving urinary system [facility] Diagnosis 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 [facility]* Diagnosis 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 [facility]* Diagnosis 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 [facility]* Diagnosis 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 [facility]* Diagnosis Nodule of soft tissue- Primary Other disorders of soft tissue [facility]* Diagnosis with fetus of unknown gestational age (HCC)- Primary 17 weeks gestation of ([facility]) state, incidental Short interval between pregnancies affecting in second trimester, antepartum (HCC) Late care ([facility]) Insufficient care Encounter for supervision of high risk in second trimester, antepartum ([facility]) Alcohol consumption during in first trimester ([facility]) [facility]* Diagnosis Encounter for anatomic survey ([facility])- Primary Encounter for anatomic survey 19 weeks gestation of ([facility]) state, incidental [facility]* Diagnosis Encounter for supervision of high risk in second trimester, antepartum ([facility])- Primary 19 weeks gestation of ([facility]) state, incidental Short interval between pregnancies affecting in second trimester, antepartum ([facility]) Rubella non-immune status, antepartum ([facility]) Other specified complication, antepartum [facility]* Diagnosis Screening for diabetes mellitus- Primary 23 weeks gestation of ([facility]) state, incidental Late care ([facility]) Insufficient care Encounter for supervision of high risk in second trimester, antepartum ([facility]) Short interval between pregnancies affecting in second trimester, antepartum ([facility]) [facility]* Diagnosis Rubella non-immune status, antepartum ([facility])- Primary Other specified complication, antepartum [facility] [place] [facility]* Diagnosis Diarrhea, unspecified type- Primary [facility]* Diagnosis Supervision of high risk in third trimester (HCC)- Primary Unspecified high-risk Late care (HCC) Insufficient care Screening for diabetes mellitus Limited care in third trimester (HCC) 31 weeks gestation of (HCC) state, incidental documented in this encounter [facility] HospitalEvaluation noteNo assessment information availableWDayton [facility] Work Phone: Reason for referral (narrative)* Diagnostic Procedure Only (Routine) - Authorized Specialty Diagnoses / Procedures Referred By Papoac t Referred To Contact [facility] Diagnoses 15 weeks gestation of Encounter for care in first trimester of first Procedures OBSTETRIC ULTRASOUND WHI US PREG UTERUS AFTER 1ST TRIMEST GESTATION Kari Mane MD [address] [place] [address] [facility] [employer] [place] [address] Referral ID Status Reason Start Date Expiration Date Visits Requested Visits Authorized [id number] Authorized Auto-Generat ed Referral 3 12/22/2023 1 1 [facility] for referral (narrative)* Diagnostic Procedure Only (Routine) - Authorized Specialty Diagnoses / Procedures Referred By Leeann lane Referred To Contact [facility] Diagnoses Supervision of high risk in second trimester Procedures OBSTETRIC ULTRASOUND WHI US PREG UTERUS AFTER 1ST TRIMEST GESTATION Kari Mane MD [address] [place] [address] [facility] [address] [place] [address] Referral ID Status Reason Start Date Expiration Date Visits Requested Visits Authorized [id number] Authorized Auto-Generat ed Referral 3 01/21/2024 1 1 [facility] for referral (narrative)* Diagnostic Procedure Only (Routine) - Closed Specialty Diagnoses / Procedures Referred By Papoac t Referred To Contact XR IMAGING Diagnoses Bony abnormality Procedures XR SACRUM/COCCYX 3V AP/LAT RADEX SACRUM & COCCYX MINIMUM 2 VIEWS Diana Velazquez PA-C [address] [place] [address] [place] [address] Referral ID Status Reason Start Date Expiration Date V isits Requested Visits Authorized [id number] Closed Auto-Generate d Referral 04/05/2024 05/05/2025 1 1 [facility] for referral (narrative)* Diagnostic Procedure Only (Routine) - New Request Specialty Diagnoses / Procedures Referred By Contac t Referred To Contact XR IMAGING Diagnoses Bony abnormality Procedures XR LUMBAR GENERAL 3V AP/LAT/L5-S1 RADEX SPINE LUMBOSACRAL 2/3 VIEWS Diana Velazquez PA-C [address] [place] [address] [place] [address] Referral ID Status Reason Start Date Expiration Date Visits Requested Visits Authorized [id number] New Request Auto-Generat ed Referral 04/14/2024 05/14/2025 1 1 * Consult, Test, Treat (Routine) - Authorized Specialty Diagnoses / Procedures Referred By Contac t Referred To Contact Spine [facility] Diagnoses Bony abnormality Procedures CONSULT TO [facility] OFFICE/OUTPATIENT NEW HIGH MDM 60 MINUTES Diana Velazquez PA-C [address] [place] [address] Referral ID Status Reason Start Date Expiration Date Visits Requested Visits Authorized [id number] Authorized PCP Requested Referral 04/14/2024 04/14/2025 1 1 [facility] for referral (narrative)No reason for referral information availableWDayton Osteopathic Hospital Work Phone: Rehbst for visit Narrative* Diagnostic Procedure Only (Routine) - Closed Specialty Diagnoses / Procedures Referred By Contac t Referred To Contact XR IMAGING Diagnoses Bony abnormality Procedures XR SACRUM/COCCYX 3V AP/LAT RADEX SACRUM & COCCYX MINIMUM 2 VIEWS Diana Velazquez PA-C [address] [place] [address] [place] [address] Referral ID Status Reason Start Date Expiration Date V isits Requested Visits Authorized [id number] Closed Auto-Generate d Referral 04/05/2024 05/05/2025 1 1 [facility] Problem Noted Date Diagnosed [...] No June 16, 2023 7:40pm Power of Decontaminator No June 15 7:40pm Summary Purpose Family History No Family History Records FoundNo Family History Records Found Reason for Referral Specialty Diagnoses / Procedures Referred By Leeann lane Referred To Contact Sports Medicine Diagnoses Bony abnormality Transitional vertebrae Procedures CONSULT TO SPORTS MEDICINE OFFICE/OUTPATIENT [facility] 60 MINUTES Diana Velazquez PA-C [address] [place] [address] Referral ID Status Reason Start Date Expiration Date Visits Requested Visits Authorized [id number] Authorized PCP Requested Referral 04/07/2024 04/07/2025 1 1 Additional Source Comments Source Comments (unrecognize d section and content) In the event this informatio n is protected by the Federal Confidentiality of Alcohol and Drug Abuse Patient Records regulations: The Federal rules restrict any use of the information to criminally investigate or prosecute any alcohol or drug abuse patient.[facility] HospitalIn the event this information is protected by the Federal Confidentiality of Alcohol and Drug Abuse Patient Records regulations: The Federal rules restrict any use of the information to criminally investigate or prosecute any alcohol or drug abuse patient.[facility] HospitalIn the event this information is protected by the Federal Confidentiality of Alcohol and Drug Abuse Patient Records regulations: The Federal rules restrict any use of the information to criminally investigate or prosecute any alcohol or drug abuse patient.[facility] HospitalIn the event this information is protected by the Federal Confidentiality of Alcohol and Drug Abuse Patient Records regulations: The Federal rules restrict any use of the information to criminally investigate or prosecute any alcohol or drug abuse patient.[facility] HospitalIn the event this information is protected by the Federal Confidentiality of Alcohol and Drug Abuse Patient Records regulations: The Federal rules restrict any use of the information to criminally investigate or prosecute any alcohol or drug abuse patient.[facility] HospitalIn the event this information is protected by the Federal Confidentiality of Alcohol and Drug Abuse Patient Records regulations: The Federal rules restrict any use of the information to criminally investigate or prosecute any alcohol or drug abuse patient.[facility] HospitalIn the event this information is protected by the Federal Confidentiality of Alcohol and Drug Abuse Patient Records regulations: The Federal rules restrict any use of the information to criminally investigate or prosecute any alcohol or drug abuse patient.[facility] HospitalIn the event this information is protected by the Federal Confidentiality of Alcohol and Drug Abuse Patient Records regulations: The Federal rules restrict any use of the information to criminally investigate or prosecute any alcohol or drug abuse patient.[facility] HospitalIn the event this information is protected by the Federal Confidentiality of Alcohol and Drug Abuse Patient Records regulations: The Federal rules restrict any use of the information to criminally investigate or prosecute any alcohol or drug abuse patient.[facility] HospitalIn the event this information is protected by the Federal Confidentiality of Alcohol and Drug Abuse Patient Records regulations: The Federal rules restrict any use of the information to criminally investigate or prosecute any alcohol or drug abuse patient.[facility] HospitalIn the event this information is protected by the Federal Confidentiality of Alcohol and Drug Abuse Patient Records regulations: The Federal rules restrict any use of the information to criminally investigate or prosecute any alcohol or drug abuse patient.[facility] HospitalIn the event this information is protected by the Federal Confidentiality of Alcohol and Drug Abuse Patient Records regulations: The Federal rules restrict any use of the information to criminally investigate or prosecute any alcohol or drug abuse patient.[facility] HospitalIn the event this information is protected by the Federal Confidentiality of Alcohol and Drug Abuse Patient Records regulations: The Federal rules restrict any use of the information to criminally investigate or prosecute any alcohol or drug abuse patient.[facility] HospitalIn the event this information is protected by the Federal Confidentiality of Alcohol and Drug Abuse Patient Records regulations: The Federal rules restrict any use of the information to criminally investigate or prosecute any alcohol or drug abuse patient.[facility] HospitalIn the event this information is protected by the Federal Confidentiality of Alcohol and Drug Abuse Patient Records regulations: The Federal rules restrict any use of the information to criminally investigate or prosecute any alcohol or drug abuse patient.[facility] HospitalIn the event this information is protected by the Federal Confidentiality of Alcohol and Drug Abuse Patient Records regulations: The Federal rules restrict any use of the information to criminally investigate or prosecute any alcohol or drug abuse patient.[facility] HospitalIn the event this information is protected by the Federal Confidentiality of Alcohol and Drug Abuse Patient Records regulations: The Federal rules restrict any use of the information to criminally investigate or prosecute any alcohol or drug abuse patient.[facility] HospitalIn the event this information is protected by the Federal Confidentiality of Alcohol and Drug Abuse Patient Records regulations: The Federal rules restrict any use of the information to criminally investigate or prosecute any alcohol or drug abuse patient.[facility] HospitalIn the event this information is protected by the Federal Confidentiality of Alcohol and Drug Abuse Patient Records regulations: The Federal rules restrict any use of the information to criminally investigate or prosecute any alcohol or drug abuse patient.[facility] HospitalIn the event this information is protected by the Federal Confidentiality of Alcohol and Drug Abuse Patient Records regulations: The Federal rules restrict any use of the information to criminally investigate or prosecute any alcohol or drug abuse patient.[facility] HospitalIn the event this information is protected by the Federal Confidentiality of Alcohol and Drug Abuse Patient Records regulations: The Federal rules restrict any use of the information to criminally investigate or prosecute any alcohol or drug abuse patient.[facility] HospitalIn the event this information is protected by the Federal Confidentiality of Alcohol and Drug Abuse Patient Records regulations: The Federal rules restrict any use of the information to criminally investigate or prosecute any alcohol or drug abuse patient.[facility] HospitalIn the event this information is protected by the Federal Confidentiality of Alcohol and Drug Abuse Patient Records regulations: The Federal rules restrict any use of the information to criminally investigate or prosecute any alcohol or drug abuse patient.[facility] HospitalIn the event this information is protected by the Federal Confidentiality of Alcohol and Drug Abuse Patient Records regulations: The Federal rules restrict any use of the information to criminally investigate or prosecute any alcohol or drug abuse patient.[facility] HospitalIn the event this information is protected by the Federal Confidentiality of Alcohol and Drug Abuse Patient Records regulations: The Federal rules restrict any use of the information to criminally investigate or prosecute any alcohol or drug abuse patient.[facility] HospitalIn the event this information is protected by the Federal Confidentiality of Alcohol and Drug Abuse Patient Records regulations: The Federal rules restrict any use of the information to criminally investigate or prosecute any alcohol or drug abuse patient.[facility] HospitalIn the event this information is protected by the Federal Confidentiality of Alcohol and Drug Abuse Patient Records regulations: The Federal rules restrict any use of the information to criminally investigate or prosecute any alcohol or drug abuse patient.[facility] HospitalIn the event this information is protected by the Federal Confidentiality of Alcohol and Drug Abuse Patient Records regulations: The Federal rules restrict any use of the information to criminally investigate or prosecute any alcohol or drug abuse patient.[facility] HospitalIn the event this information is protected by the Federal Confidentiality of Alcohol and Drug Abuse Patient Records regulations: The Federal rules restrict any use of the information to criminally investigate or prosecute any alcohol or drug abuse patient.[facility] HospitalIn the event this information is protected by the Federal Confidentiality of Alcohol and Drug Abuse Patient Records regulations: The Federal rules restrict any use of the information to criminally investigate or prosecute any alcohol or drug abuse patient.[facility] HospitalIn the event this information is protected by the Federal Confidentiality of Alcohol and Drug Abuse Patient Records regulations: The Federal rules restrict any use of the information to criminally investigate or prosecute any alcohol or drug abuse patient.[facility] HospitalIn the event this information is protected by the Federal Confidentiality of Alcohol and Drug Abuse Patient Records regulations: The Federal rules restrict any use of the information to criminally investigate or prosecute any alcohol or drug abuse patient.[facility] HospitalIn the event this information is protected by the Federal Confidentiality of Alcohol and Drug Abuse Patient Records regulations: The Federal rules restrict any use of the information to criminally investigate or prosecute any alcohol or drug abuse patient.[facility] HospitalIn the event this information is protected by the Federal Confidentiality of Alcohol and Drug Abuse Patient Records regulations: The Federal rules restrict any use of the information to criminally investigate or prosecute any alcohol or drug abuse patient.[facility] HospitalIn the event this information is protected by the Federal Confidentiality of Alcohol and Drug Abuse Patient Records regulations: The Federal rules restrict any use of the information to criminally investigate or prosecute any alcohol or drug abuse patient.[facility] the event this information is protected by the Federal Confidentiality of Alcohol and Drug Abuse Patient Records regulations: The Federal rules restrict any use of the information to criminally investigate or prosecute any alcohol or drug abuse patient.[facility] the event this information is protected by the Federal Confidentiality of Alcohol and Drug Abuse Patient Records regulations: The Federal rules restrict any use of the information to criminally investigate or prosecute any alcohol or drug abuse patient.[facility] the event this information is protected by the Federal Confidentiality of Alcohol and Drug Abuse Patient Records regulations: The Federal rules restrict any use of the information to criminally investigate or prosecute any alcohol or drug abuse patient.[facility] the event this information is protected by the Federal Confidentiality of Alcohol and Drug Abuse Patient Records regulations: The Federal rules restrict any use of the information to criminally investigate or prosecute any alcohol or drug abuse patient.[facility] the event this information is protected by the Federal Confidentiality of Alcohol and Drug Abuse Patient Records regulations: The Federal rules restrict any use of the information to criminally investigate or prosecute any alcohol or drug abuse patient.[facility] the event this information is protected by the Federal Confidentiality of Alcohol and Drug Abuse Patient Records regulations: The Federal rules restrict any use of the information to criminally investigate or prosecute any alcohol or drug abuse patient.[facility] the event this information is protected by the Federal Confidentiality of Alcohol and Drug Abuse Patient Records regulations: The Federal rules restrict any use of the information to criminally investigate or prosecute any alcohol or drug abuse patient.[facility] the event this information is protected by the Federal Confidentiality of Alcohol and Drug Abuse Patient Records regulations: The Federal rules restrict any use of the information to criminally investigate or prosecute any alcohol or drug abuse patient.[facility] the event this information is protected by the Federal Confidentiality of Alcohol and Drug Abuse Patient Records regulations: The Federal rules restrict any use of the information to criminally investigate or prosecute any alcohol or drug abuse patient.[facility]In the event this information is protected by the Federal Confidentiality of Alcohol and Drug Abuse Patient Records regulations: The Federal rules restrict any use of the information to criminally investigate or prosecute any alcohol or drug abuse patient.[facility] Reason for Visit (unrecogniz ed section [...] Referred By Leeann lane Referred To Contact [facility] Diagnoses 15 weeks gestation of Encounter for care in first trimester of first Procedures OBSTETRIC ULTRASOUND WHI US PREG UTERUS AFTER 1ST TRIMEST GESTATION Kari Mane MD [address] [place] [address] [address] Referral ID Status Reason Start Date Expiration Date V isits Requested Visits Authorized [id number] Closed Auto-Generate d Referral 12/22/2022 12/22/2023 1 1 Reason Comments Lab Orders Reason Onset Date Comments Care 02/16/2023 Specialty Diagnoses / Procedures Referred By Leeann lane Referred To Contact [facility] Diagnoses Supervision of high risk in second trimester Procedures OBSTETRIC ULTRASOUND WHI US PREG UTERUS AFTER 1ST TRIMEST GESTATION Kari Mane MD [address] [place] [address] [facility] [address] [place] [address] Referral ID Status Reason Start Date Expiration Date V isits Requested Visits Authorized [id number] Closed Auto-Generate d Referral 01/21/2023 01/21/2024 1 [...] Referred By Leeann lane Referred To Contact [facility] Diagnoses with fetus of unknown gestational age (HCC) Procedures OBSTETRIC ULTRASOUND WHI US PREG UTERUS AFTER 1ST TRIMEST GESTATION Gina Kulkarni APRN.[facility] [address] [place] [address] Phone: tel: fax: [facility] [address] [place] [address] Referral ID Status Reason Start Date Expiration Date V isits Requested Visits Authorized [id number] Closed Auto-Generate d Referral 06/28/2024 06/28/2025 1 1 Reason Onset Date Comments Care 07/12/2024 Reason Onset Date Comments Care 08/11/2024 Reason Comments PRAF Reason Comments Diarrhea x 1 week Reason Onset Date Comments Care 10/05/2024 Care Teams (unrecognized sec tion and content) Customer Experience Intern Relationship Specialty Start Date End Date Diana Velazquez PA-C [address] [place] [address] PCP - General Pediatrics 04/30/21 Customer Experience Intern Relationship Specialty Start Date End Date Diana Velazquez PA-C [address] [place] [address] PCP - General Pediatrics 04/30/21 Customer Experience Intern Relationship Specialty Start Date End Date Diana Velazquez PA-C [address] [place] [address] PCP - General Pediatrics 04/30/21 Customer Experience Intern Relationship Specialty Start Date End Date Diana Velazquez PA-C [address] [place] [address] PCP - General Pediatrics 04/30/21 Customer Experience Intern Relationship Specialty Start Date End Date Diana Velazquez PA-C [address] [place] [address] PCP - General Pediatrics 04/30/21 Customer Experience Intern Relationship Specialty Start Date End Date Diana Velazquez PA-C [address] [place] [address] PCP - General Pediatrics 04/30/21 Customer Experience Intern Relationship Specialty Start Date End Date Diana Velazquez PA-C [address] [place] [address] PCP - General Pediatrics 04/30/21 Customer Experience Intern Relationship Specialty Start Date End Date Diana Velazquez PA-C [address] [place] [address] PCP - General Pediatrics 04/30/21 Customer Experience Intern Relationship Specialty Start Date End Date Diana Velazquez PA-C [address] [place] [address] PCP - General Pediatrics 04/30/21 Customer Experience Intern Relationship Specialty Start Date End Date Diana Velazquez PA-C [address] [place] [address] PCP - General Pediatrics 04/30/21 Customer Experience Intern Relationship Specialty Start Date End Date Diana Velazquez PA-C [address] [place] [address] PCP - General Pediatrics 04/30/21 Customer Experience Intern Relationship Specialty Start Date End Date Diana Velazquez PA-C [address] [place] [address] PCP - General Pediatrics 04/30/21 Customer Experience Intern Relationship Specialty Start Date End Date Dinaa Velazquez PA-C [address] [place] [address] PCP - General Pediatrics 04/30/21 Customer Experience Intern Relationship Specialty Start Date End Date Diana Velazquez PA-C [address] [place] [address] PCP - General Pediatrics 04/30/21 Customer Experience Intern Relationship Specialty Start Date End Date Diana Velazquez PA-C [address] [place] [address] PCP - General Pediatrics 04/30/21 Customer Experience Intern Relationship Specialty Start Date End Date Diana Velazquez PA-C PCP - General Pediatrics 04/30/21 Customer Experience Intern Relationship Specialty Start Date End Date Diana Velazquez PA-C PCP - General Pediatrics 04/30/21 Customer Experience Intern Relationship Specialty Start Date End Date Diana Velazquez PA-C PCP - General Pediatrics 04/30/21 Customer Experience Intern Relationship Specialty Start Date End Date Diana Velazquez PA-C PCP - General Pediatrics 04/30/21 Customer Experience Intern Relationship Specialty Start Date End Date Diana Velazquez PA-C PCP - General Pediatrics 04/30/21 Team Status: Active Member Role Status Dates Dr. Myesha Cooney MD Family Provider Active No Primary Care Physician Primary Care Provider Active Team Status: Inactive Member Role Status Dates No Primary Care Physician Primary Care Provider Active Dr. Marium Stevenson MD Admit Provider, Attending Pro vider Active Customer Experience Intern Relationship Specialty Start Date End Date Diana Velazquez PA-C PCP - General Pediatrics 04/30/21 Customer Experience Intern Relationship Specialty Start Date End Date Diana Velazquez PA-C PCP - General Pediatrics 04/30/21 Customer Experience Intern Relationship Specialty Start Date End Date Diana Velazquez PA-C PCP - General Pediatrics 04/30/21 Customer Experience Intern Relationship Specialty Start Date End Date Diana Velazquez PA-C PCP - General Pediatrics 04/30/21 Customer Experience Intern Relationship Specialty Start Date End Date Diana Velazquez PA-C PCP - General Pediatrics 04/30/21 Customer Experience Intern Relationship Specialty Start Date End Date Diana Velazquez PA-C PCP - General Pediatrics 04/30/21 Customer Experience Intern Relationship Specialty Start Date End Date Diana Velazquez PA-C PCP - General Pediatrics 04/30/21 Customer Experience Intern Relationship Specialty Start Date End Date Diana Velazquez PA-C PCP - General Pediatrics 04/30/21 Customer Experience Intern Relationship Specialty Start Date End Date Diana Velazquez PA-C PCP - General Pediatrics 04/30/21 Customer Experience Intern Relationship Specialty Start Date End Date Diana Velazquez PA-C PCP - General Pediatrics 04/30/21 Customer Experience Intern Relationship Specialty Start Date End Date VelazquezDiana PA-C PCP - General Pediatrics 04/30/21 Customer Experience Intern Relationship Specialty Start Date End Date VelazquezDiana PA-C PCP - General Pediatrics 04/30/21 Customer Experience Intern Relationship Specialty Start Date End Date VelazquezDiana PA-C PCP - General Pediatrics 04/30/21 Customer Experience Intern Relationship Specialty Start Date End Date Diana [...] section and content) DATE CREATED AUTHOR 12/03/2023 [facility] DATE CREATED AUTHOR AUTHOR'S ORGANIZ ATION 10/07/2024 [facility] Goals (unrecognized section and content) Goals may [...] BE BASED ON THE PRIMARY CLINICAL RECORDS. [facility] [employer] [facility]. provides no warranty or guarantee of the accuracy or completeness of information in this document.
[2024-10-14 01:07] VITALS: BMI 23.6
--- NOTE | 2024-10-14 01:08 | OB.TRI.NOTE ---
HPI - General General Date of Admission: 10/14/24 Date of Service: 10/14/24 Chief Complaint: abdominal pain HPI Narrative JIMMY LEMA, is a 19 F who presents at 33 weeks with diffuse abdominal pain. She states she is very active at work. 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 Her abdomen feels sore and tender, and the pain is worse with movements and coughing. She also had abdominal pain when the baby moves. No falls or trauma. She is certain this pain is not contractions, as it is different than what she was experiencing a few days ago. She has not taken medication for the pain. She has bilateral low back pain as well. No headaches, vision changes, RUQ pain, acid reflux, vaginal bleeding, LOF, nausea, vomiting, fevers, constipation, diarrhea, ctx's. Has only taken 1 dose of her antibiotic for a UTI so far. [facility] Medical History (Updated 10/14/24 @ 01:[address] Lois Moore, DO) Physical exam, pre-employment Anemia Seizures Allergy/AdvReac Type Severity Reaction Status Date / Time No Known Allergies Allergy Verified 10/10/24 15:30 Social History Smoking Status: Never smoker History Elective abortions Hx Para 0 Spontaneous abortions Hx # Term Pregnancies Ectopic pregnancies Hx # Pregnancies Multiple births # of living children Physical Exam Const alert and no apparent distress General Appearance: comfortable HEENT normocephalic Resp normal respiratory effort GI soft to palpation and non-distended GI Narrative: No rebounding, no guarding, no rigidity, minimal diffuse tenderness Assessment & Plan (1) 33 weeks gestation of : (2) Low back pain: (3) Abdominal pain affecting : PLAN: Suspect [employer]K given lifting and active at work, and pain is minimal and worse with movements. Exam benign and patient comfortable appearing. No other GI or symptoms. Cont prescribed antibiotic and push fluids. Patient accepts Tylenol for the pain. Discussed support belt, warm baths or showers, swimming, Tylenol PRN. Questions answered. Will place on monitor for NST. Likely okay for discharge home after NST.
[2024-10-14 01:10] VITALS: RESP 16; TEMP 37.1
[2024-10-14 01:11] VITALS: BP 108/65; PULSE 101
== END 2024-10-14 01:45 | disposition home or self-care (01) ==
LOC: WPOUT 00:56 → WP 00:57
PROVIDERS: Visit Provider Advanced Practice Midwife
DX: O26.893 Other specified pregnancy related conditions, third trimester (principal); M54.50 Low back pain, unspecified; R10.9 Unspecified abdominal pain; Z3A.33 33 weeks gestation of pregnancy
CPT/HCPCS: 59025; 59050; 99221; G0378

== ENCOUNTER 2024-11-05 11:10 | Outpatient (CLI) | payer MEDICAID, SELFPAY ==
--- OUTSIDE RECORDS SUMMARY | 2024-11-05 11:21 | XMS RPT_ITS | CCD ---
Author Organization [facility] Care Team Providers Care Core Drier Name Role Phone Diana Velazquez PA-C Primary Care Provider Unavailable Primary Care Provider Unavailabl e Care Physician, No Primary Primary Care Provider Unavailable Jean Paul WHEATLEY, Dr. Menendez Attending Provider [phone] Dr. Esme Jordan MD Referring Provider Radha Manrique CNM Attending Provider Care Physician, No Primary Primary Care Unava ilable Carlyle Whittington Attending Unavailable Care Physician, No Primary Referring Unava ilable Care Physician, No Primary Primary Care Unava ilable Esme Jordan Referring Unavailable Esme Jordan Attending Unavailable Care Physician, No Primary Primary Care Unava ilable Radha Manrique Attending Unavailable PLOTTS, GINA Referring Unavailable POOL, SIOMARA Referring Unavailable VELAZQUEZ, DIANA Primary Care Unavailable VELAZQUEZ, DIANA Attending Unavailable VELAZQUEZ, DIANA Primary Care Unavailable VELAZQUEZ, DIANA Referring Unavailable VELAZQUEZ, DIANA Primary Care Unavailable PLOTGINA CALDWELL Attending Unavailable VELAZQUEZ, DIANA Primary Care Unavailable PLOTTS, GINA Referring Unavailable VELAZQUEZ, DIANA Primary Care Unavailable PLOTTS, GINA Referring Unavailable VELAZQUEZ, DIANA Primary Care Unavailable PAULINA CHADWICK Attending Unavailable PLOTTS, GINA Referring Unavailable VELAZQUEZ, DIANA Primary Care Unavailable PLOTTS, GINA Attending Unavailable VELAZQUEZ, DIANA Primary Care Unavailable CRISTA VASQUEZ Attending Unavailable PLOTTS, GINA Attending Unavailable PLOTTS, GINA Referring Unavailable MARIUM STEVENSON Attending Unavailable PLOTTS, GINA Referring Unavailable CHUY MOORE Attending Unavailable Medications Current Medications Medication Drug Class(es) Dates Sig (Normalized) Sig (Original) amoxicillin 500 mg oral capsule (3 sources) Penicillin-class Antibacterial Start: 10-12-2024 End: 10-19-2024 take 1 capsule by mouth three times daily amoxicillin (AMOXIL) 500 mg capsule Take 1 capsule by mouth three times a day for 7 days. 21 capsule 10/12/2024 10/19/2024 Active Start: 11-26-2022 End: 12-01-2022 take 1 capsule by mouth three times daily amoxicillin (AMOXIL) 500 mg capsule Take 1 capsule by mouth three times daily for 5 days. 15 capsule 0 11/26/2022 12/01/2022 Active Comment on above: Take 1 capsule by mo [facility] three times daily for 5 days. aspirin 81 mg delayed release oral tablet (15 sources) Platelet Aggregation Inhibitor, Nonsteroidal Anti-inflammatory Drug Start: 06-28-2024 take 1 tablet by mouth once daily Blood-Glucose Meter (4 sources) Start: 10-11-2024 Blood-Glucose Meter Indications: Limited care in third trimester (HCC) , Screening for diabetes mellitus Use as directed to check glucose levels up to seven times daily. 1 each 10/11/2024 Active Start: 04-13-2023 End: 04-13-2023 Blood-Glucose Meter Indicati ons: Abnormal glucose in , antepartum Use as directed to check glucose levels up to seven times daily. 1 Each 0 04/13/2023 04/13/2023 Comment on above: Use as directed to c heck glucose levels up to seven times daily. Ethinyl Estradiol / norgestimate (5 sources) Progestin, Estrogen Start: 2 End: 2 take 1 tablet by mouth once daily [...] Sig (Original) acetaminophen 500 mg oral tablet (17 sources) Start: 06-18-2023 End: 07-12-2024 take 2 [...] needed for Pain 1-10 Or Fever 30 0 June 18, 2023 12:00am October 10, 2024 3:30pm Start: 06-18-2023 take 1000 mg by mout h every six hours as needed Acetaminophen Active 1000 MG PO EVERY 6 HOURS NEEDED 30 June 18, 2023 12:00am Desogestrel / Ethinyl Estradiol (1 source) Progestin, [...] on above: Take 1 tablet by willie once daily. ibuprofen 600 mg oral tablet (15 sources) Nonsteroidal Anti-inflammatory Drug Start: 06-18-2023 End: [...] glucose levels up to seven times daily. multivitamin-ferr ous sulfate 18 mg iron tab (20 sources) Start: 05-02-2021 End: 07-29-2023 take 1 tablet by mouth once daily multivitamin-ferrous sulfate 18 mg iron [...] Classification Problem Date Documented Da te Episodic/Chronic Abdominal pain (1 source) Unspecified abdominal pain; Translations: [Unspecified abdominal pain] Onset: 10-20-2024 Episodic Contraceptive and procreative management (2 sources) Oral contraception; Translations: [Encounter for surveillance of contraceptive pills] Episodic Early or threatened labor (3 sources) False labor before 37 completed weeks of gestation; Translations: [False labor before 37 completed weeks of gestation, unspecified trimester] Onset: 10-19-2024 10-10-2024 Episodic Other complications of (3 sources) Anemia of ; Translations: [Anemia complicating [...] age unknown 06-28-2024 Episodic Other complications of (4 sources) care status; Translations: [Supervision of with insufficient care, third trimester] 10-05-2024 Episodic Other complications of (2 sources) Abdominal pain in ; Translations: [Other specified related conditions, unspecified trimester] 10-14-2024 Episodic Other complications of (1 source) Supervision of high risk , unspecified, third trimester; Translations: [Supervision of high risk in third trimester (HCC)] Onset: 10-05-2024 Episodic Other complications of (1 source) Supervision of with insufficient care, third trimester; Translations: [Limited care in third trimester (HCC)] Onset: 10-05-2024 Episodic Other congenital anomalies (4 sources) Disorder [...] disorders] 04-14-2024 Episodic Other connective tissue disease (2 sources) Pain in upper limb; Translations: [Pain in arm, unspecified] 06-18-2023 Episodic Other gastrointestinal disorders (1 source) Constipation; Translations: [Constipation, unspecified] 07-29-2023 Episodic Other gastrointestinal disorders (1 source) Diarrhea; Translations: [Diarrhea, unspecified] 09-17-2024 Episodic Other gastrointestinal disorders (1 source) Diarrhea, unspecified; Translations: [Diarrhea, unspecified type] Onset: 09-17-2024 Episodic Other nutritional; endocrine; and metabolic disorders (3 sources) History of clinical finding in subject; [...] metabolic, and immunity disorders] 06-18-2023 Episodic Other screening for suspected conditions (not mental disorders or infectious disease) (10 sources) ultrasound increased nuchal translucency; Translations: [Encounter [...] of ] 02-16-2023 Episodic Residual codes; unclassified (5 sources) Gestation period, 32 weeks; Translations: [32 weeks gestation of ] 04-20-2023 Episodic Residual codes; unclassified (2 sources) Gestation period, 34 weeks; Translations: [34 weeks [...] of ] 06-08-2023 Episodic Residual codes; unclassified (3 sources) Gestation period, 40 weeks; Translations: [40 [...] of ] 10-05-2024 Episodic Residual codes; unclassified (2 sources) Gestation period, 33 weeks; Translations: [33 weeks gestation of ] 10-14-2024 Episodic Residual codes; unclassified (1 source) 34 weeks gestation of ; Translations: [34 weeks gestation of (HCC)] Onset: 10-30-2024 Episodic Residual codes; unclassified (1 source) 32 weeks gestation of ; Translations: [32 weeks gestation of ([facility])] Onset: 10-16-2024 Episodic Residual codes; unclassified (1 source) 31 weeks gestation of ; Translations: [31 weeks gestation of ([facility])] Onset: 10-05-2024 Episodic Residual codes; unclassified (1 source) 23 weeks gestation of ; Translations: [23 weeks gestation of ([facility])] Onset: 08-11-2024 Episodic Spondylosis; intervertebral disc disorders; other back problems (3 sources) Sacrococcygeal disorders, not elsewhere classified; Translations: [Disorders of sacrum] 07-29-2023 Episodic Unclassified (15 sources) [facility] Education - COMMON Onset: 06-28-2024 06-28-2024 Unclassified (15 sources) Education - [place] Onset: 06-28-2024 06-28-2024 Urinary tract infections (4 sources) Urinary tract infection caused by Enterococcus; Translations: [Urinary tract infection, site not specified] Onset: 10-12-2024 10-12-2024 Episodic Past or Other Problems Problem Classification Problem Date Documented Da te Episodic/Chronic Administrative/social admission (3 sources) Patient encounter status; Translations: [Encounter for pre-employment examination] Onset: 12-01-2023 12-01-2023 Episodic Alcohol-related disorders (17 sources) Alcohol consumption during ; Translations: [Alcohol use complicating , first trimester] Onset: 06-28-2024 06-28-2024 Episodic Diabetes or abnormal glucose tolerance complicating ; childbirth; or the puerperium (20 sources) Impaired glucose tolerance in ; Translations: [Abnormal glucose complicating ] Onset: 04-06-2023 Resolved: 06-28-2024 04-12-2023 Episodic Genitourinary symptoms and ill-defined conditions (20 sources) Bacteriuria; Translations: [Bacteriuria] Onset: 11-26-2022 Resolved: 06-28-2024 11-26-2022 Episodic Other complications of (20 sources) Anemia in mother complicating , childbirth AND/OR puerperium; Translations: [Anemia complicating , third trimester] Onset: 03-16-2023 Resolved: 06-28-2024 04-06-2023 Chronic Other complications of (20 sources) Late entry into care; Translations: [Supervision of with insufficient care, unspecified trimester] Onset: 06-28-2024 06-28-2024 Episodic Other complications of (16 sources) Rubella non-immune; Translations: [Supervision of other high risk pregnancies, unspecified trimester] Onset: 07-03-2024 07-03-2024 Episodic Other complications of (1 source) Supervision of other high risk pregnancies, second trimester; Translations: [Short interval between pregnancies affecting in second trimester, antepartum (HCC)] Onset: 06-28-2024 Episodic Other complications of (1 source) Supervision of with insufficient care, unspecified trimester; Translations: [Late care (HCC)] Onset: 06-28-2024 Episodic Other complications of (1 source) Supervision of high risk , unspecified, second trimester; Translations: [Encounter for supervision of high risk in second trimester, antepartum (HCC)] Onset: 07-12-2024 Episodic Other and delivery including normal (20 sources) Teenage ; Translations: [Encounter for supervision of normal first , first trimester] Onset: 11-24-2022 11-24-2022 Episodic Residual codes; unclassified (1 source) 19 weeks gestation of ; Translations: [19 weeks gestation of (HCC)] Onset: 07-12-2024 Episodic Residual codes; unclassified (1 source) 17 weeks gestation of ; Translations: [17 weeks gestation of ([facility])] Onset: 06-28-2024 Episodic Results Test Name Value Interpretation Reference Range Facility CBC W Auto Differential pane l (Bld)on 10-30-2024 Basophils (Bld) [#/Vol] 0.05 10*3/uL Normal <0.11 [facility] Comment on above: Order Comment: Speci men Type: BLOOD SPECIMENOrdering Facility: [facility] Address: [address] [place] [address] Performed By: #### 5 7021-8 ####[facility] [id number] [place] [id number] [place] Basophils/100 WBC (Bld) 0.7 % Normal C [facility] Comment on above: Order Comment: Speci men Type: BLOOD SPECIMENOrdering Facility: [facility] Address: [address] [place] [address] Performed By: #### 5 7021-8 ####[facility]ITALWNCLIA [id number] [place] [address] [place] Differential cell count method Nom (Bld) Auto Normal [facility] Comment on above: Order Comment: Speci men Type: BLOOD SPECIMENOrdering Facility: [facility] Address: [address] [place] [address] Performed By: #### 5 7021-8 ####[facility] [id number] [place] [address] [place] Eosinophils (Bld) [#/Vol] 0.12 10*3/uL Normal <0.46 [facility] Comment on above: Order Comment: Speci men Type: BLOOD SPECIMENOrdering Facility: [facility] Address: [address] [place] [address] Performed By: #### 5 7021-8 ####[facility]ITAL[facility] [id number] [place] [address] [place] Eosinophils/100 WBC (Bld) 1.6 % Normal [facility] Comment on above: Order Comment: Speci men Type: BLOOD SPECIMENOrdering Facility: [facility] Address: [address] [place] [address] Performed By: #### 5 7021-8 ####[facility] [id number] [place] [address] [place] Erythrocyte distribution width (RBC) [Ratio] 13.5 % Normal 11.5-15.0 [facility] Comment on above: Order Comment: Speci men Type: BLOOD SPECIMENOrdering Facility: [facility] Address: [address] [place] [address] Performed By: #### 5 7021-8 ####[facility] SENGWNCLIA [id number] [place] [address] [place] Hematocrit (Bld) [Volume fraction] 30.1 % Low 36.0-46.0 [facility] Comment on above: Order Comment: Speci men Type: BLOOD SPECIMENOrdering Facility: [facility] Address: [address] [place] [address] Performed By: #### 5 7021-8 ####[facility] EM[facility]ENC[facility]CL[facility] [id number] [place] [address] [place] Hemoglobin (Bld) [Mass/Vol] 10.0 g/dL Low 11.5-15.5 [facility] Comment on above: Order Comment: Speci men Type: BLOOD SPECIMENOrdering Facility: [facility] Address: [address] [place] [address] Performed By: #### 5 7021-8 ####[facility] EMER[facility]ENCYNCLIA [id number] [place] [address] [place] Immature granulocytes (Bld) [#/Vol] 0.29 10*3/uL High <0.10 [facility] Comment on above: Order Comment: Speci men Type: BLOOD SPECIMENOrdering Facility: [facility] Address: [address] [place] [address] Performed By: #### 5 7021-8 ####[facility]ENCYNCLIA [id number] [place] [address] [place] Immature granulocytes/100 WBC (Bld) 3.9 % Normal [facility] Comment on above: Order Comment: Speci men Type: BLOOD SPECIMENOrdering Facility: [facility] Address: [address] [place] [address] Performed By: #### 5 7021-8 ####[facility]ENCYNCL[facility] [id number] [place] [address] [place] Lymphocytes (Bld) [#/Vol] 1.40 10*3/uL Normal 1.00-4.00 [facility] Comment on above: Order Comment: Speci men Type: BLOOD SPECIMENOrdering Facility: [facility] Address: [address] [place] [address] Performed By: #### 5 7021-8 ####[facility] [id number] [place] [address] [place] Lymphocytes/100 WBC (Bld) 18.8 % Normal [facility] Comment on above: Order Comment: Speci men Type: BLOOD SPECIMENOrdering Facility: [facility] Address: [address] [place] [address] Performed By: #### 5 7021-8 ####[facility] [id number] [place] [address] [place] MCH (RBC) [Entitic mass] 30.2 pg Normal 26.0-34.0 [facility] Comment on above: Order Comment: Speci men Type: BLOOD SPECIMENOrdering Facility: [facility] Address: [address] [place] [address] Performed By: #### 5 7021-8 ####[facility] [id number] [place] [address] [place] MCHC (RBC) [Mass/Vol] 33.2 g/dL Normal 30.5-36.0 [facility] Comment on above: Order Comment: Speci men Type: BLOOD SPECIMENOrdering Facility: [facility] Address: [address] [place] [address] Performed By: #### 5 7021-8 ####[facility] EM[facility]ENCYNCLI [id number] [place] [address] [place] MCV (RBC) [Entitic vol] 90.9 fL Normal 80.0-100.0 C [facility] Comment on above: Order Comment: Speci men Type: BLOOD SPECIMENOrdering Facility: [facility] Address: [address] [place] [address] Performed By: #### 5 7021-8 ####[facility]GENCYNCBRIGHAM [facility] [id number] [place] [address] [place] Monocytes (Bld) [#/Vol] 0.74 10*3/uL Normal <0.87 [facility] Comment on above: Order Comment: Speci men Type: BLOOD SPECIMENOrdering Facility: [facility] Address: [address] [place] [address] Performed By: #### 5 7021-8 ####[facility] [id number] [place] [address] [place] Monocytes/100 WBC (Bld) 9.9 % Normal C [facility] Comment on above: Order Comment: Speci men Type: BLOOD SPECIMENOrdering Facility: [facility] Address: [address] [place] [address] Performed By: #### 5 7021-8 ####[facility] [id number] [place] [address] [place] Neutrophils (Bld) [#/Vol] 4.84 10*3/uL Normal 1.45-7.50 [facility] Comment on above: Order Comment: Speci men Type: BLOOD SPECIMENOrdering Facility: [facility] Address: [address] [place] [address] Performed By: #### 5 7021-8 ####[facility] [id number] [place] [address] [place] Neutrophils/100 WBC (Bld) 65.1 % Normal [facility] Comment on above: Order Comment: Speci men Type: BLOOD SPECIMENOrdering Facility: [facility] Address: [address] [place] [address] Performed By: #### 5 7021-8 ####[facility] AIDAA [id number] [place] [address] [place] Nucleated RBC (Bld) [#/Vol] 10*3/uL Normal <0.01 [facility] Comment on above: Order Comment: Speci men Type: BLOOD SPECIMENOrdering Facility: [facility] Address: [address] [place] [address] Performed By: #### 5 7021-8 ####[facility] EMERGENCYFELECIA [id number] [place] [address] [place] Nucleated RBC/100 WBC (Bld) [Ratio] 0.0 /100 WBC Normal [facility] Comment on above: Order Comment: Speci men Type: BLOOD SPECIMENOrdering Facility: [facility] Address: [address] [place] [address] Performed By: #### 5 7021-8 ####[facility] [id number] [place] [address] [place] Platelet mean volume (Bld) [Entitic vol] 9.8 fL Normal 9.0-12.7 [facility] Comment on above: Order Comment: Speci men Type: BLOOD SPECIMENOrdering Facility: [facility] Address: [address] [place] [address] Performed By: #### 5 7021-8 ####[facility] EMERGENCYCLOVISLIA [id number] [place] [address] [place] Platelets (Bld) [#/Vol] 167 10*3/uL Normal 150-400 [facility] Comment on above: Order Comment: Speci men Type: BLOOD SPECIMENOrdering Facility: [facility] Address: [address] [place] [address] Performed By: #### 5 7021-8 ####[facility] EMERGENCYCLOVISBRIGHAM [facility] [id number] [place] [address] [place] RBC (Bld) [#/Vol] 3.31 10*6/uL Low 3.90-5.20 [facility] Comment on above: Order Comment: Speci men Type: BLOOD SPECIMENOrdering Facility: [facility] Address: [address] [place] [address] Performed By: #### 5 7021-8 ####[facility] [id number] [place] [address] [place] WBC (Bld) [#/Vol] 7.44 10*3/uL Normal 3.70-11.00 [facility] Comment on above: Order Comment: Speci men Type: BLOOD SPECIMENOrdering Facility: [facility] Address: [address] [place] [address] Performed By: #### 5 7021-8 ####[facility] [id number] [place] [address] [place] Ferritin SerPl-mCncon 2024 Ferritin [Mass/Vol] 17.4 ng/mL Normal 14.7-205.1 [facility] Comment on above: Order Comment: Speci men Type: BLOOD SPECIMENOrdering Facility: [facility] Address: [address] [place] [address] Performed By: #### 5 0190-8, 2276-4 ####[facility] LABCLIA [id number] [place] [address] [place] Iron and Iron binding capaci ty panelon 10-30-2024 Iron [Mass/Vol] 56 ug/dL Normal 41-186 [facility] Comment on above: Order Comment: Speci men Type: BLOOD SPECIMENOrdering Facility: [facility] Address: [address] [place] [address] Performed By: #### 5 0190-8, 2276-4 ####[facility] HOSPITALIA [id number] [place] [address] [place] Iron binding capacity [Mass/Vol] 521 ug/dL High 232-386 [facility] Comment on above: Order Comment: Speci men Type: BLOOD SPECIMENOrdering Facility: [facility] Address: [address] [place] [address] Performed By: #### 5 0190-8, 2276-4 ####[facility] [id number] [place] [address] [place] Iron/TIBC [Molar ratio] 10.7 % Low 15.0-57.0 C [facility] Comment on above: Order Comment: Speci men Type: BLOOD SPECIMENOrdering Facility: [facility] Address: [address] [place] [address] Performed By: #### 5 0190-8, 2276-4 ####[facility] [id number] [place] [address] [place] Reagin and Treponema pallidu m IgG and IgM [Interp]on 10-30-2024 T. pallidum IgG+IgM IA Ql (S) Non-Reactive Normal Nonreactive [facility] Comment on above: Order Comment: Speci men Type: BLOOD SPECIMENOrdering Facility: [facility] Address: [address] [place] [address] Performed By: #### 7 3752-8 ####[facility] [id number] [place] [address] [place] Reagin+T pallidum IgG+IgM Se rPl-Impon 10-30-2024 Reagin and Treponema pallidum IgG and IgM [Interp] Cannot exclude recent Treponemal infection if specimen collected within 7-10 days after appearance of suspect lesions or 2-3 weeks after an exposure. Clinical correlation is required. Normal [facility] Comment on above: Order Comment: Speci men Type: BLOOD SPECIMENOrdering Facility: [facility] Address: [address] [place], [place] [address], [place] [address] Performed By: #### 7 3752-8 ####[facility] LABCLIA [id number] [facility] CENTERVinicio JONAS [id number] [place] [address] [place] URINE OB DIP B/Oon Glucose Ql (U) Negative Neg mg/dL [facility] Interpretation and review of laboratory results Normal [facility] Protein.monoclonal (U) [Mass/Vol] Negative Neg mg/dL [facility] Examination level ultrasound on 10-16-2024 [facility] Radiology Study observation (narrative) [facility] OB Triage Physician Noteon 0 10-14-2024 OB Triage Physician Note [facility] Medical Records Department [address] [place] [address] OB Triage Physician Note 10/14/24 0108 MR#: [id number] Acct: [id number] Name: JIMMY LEMA Rep #: [id number] : 2005 19 From: Chuy Moore DO PCP: Care Physician,No Primary Status:REG CLI Y Location: [place] [address] HPI - General General Date of Admission: 10/14/24 Date of Service: 10/14/24 Chief Complaint: abdominal pain HPI Narrative JIMMY LEMA, is a 19 F who presents at 33 weeks with diffuse abdominal pain. She states she is very active at work. 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 Her abdomen feels sore and tender, and the pain is worse with movements and coughing. She also had abdominal pain when the baby moves. No falls or trauma. She is certain this pain is not contractions, as it is different than what she was experiencing a few days ago. She has not taken medication for the pain. She has bilateral low back pain as well. No headaches, vision changes, RUQ pain, acid reflux, vaginal bleeding, LOF, nausea, vomiting, fevers, constipation, diarrhea, ctx's. Has only taken 1 dose of her antibiotic for a UTI so far. [facility] Medical History (Updated 10/14/24 @ 01:[address] Chuy Moore DO) Physical exam, pre-employment Anemia Seizures Allergy/AdvReac Type Severity Reaction Status Date / Time No Known Allergies Allergy Verified 10/10/24 15:30 Social History Smoking Status: Never smoker History Elective abortions Hx Para 0 Spontaneous abortions Hx # Term Pregnancies Ectopic pregnancies Hx # Pregnancies Multiple births # of living children Physical Exam Const alert and no apparent distress General Appearance: comfortable HEENT normocephalic Resp normal respiratory effort GI soft to palpation and non-distended GI Narrative: No rebounding, no guarding, no rigidity, minimal diffuse tenderness Assessment Plan (1) 33 weeks gestation of : (2) Low back pain: (3) Abdominal pain affecting : PLAN: Suspect MSK given lifting and active at work, and pain is minimal and worse with movements. Exam benign and patient comfortable appearing. No other GI or symptoms. Cont prescribed antibiotic and push fluids. Patient accepts Tylenol for the pain. Discussed support belt, warm baths or showers, swimming, Tylenol PRN. Questions answered. Will place on monitor for NST. Likely okay for discharge home after NST. 10/14/24 0114 Date Chuy Moore DO Cosigner Signature (if applicable): Date _ CC: Dr. Chuy Moore, DO; No Primary Care Physician Signed Normal [facility] 10-12-2024 [facility] Telephone (OBGYWM) JIMMY LEMA ([id number]) 3 F Date Time Provider Department 10/12/24 ESME JORDAN OBMELISSAWVignesh During your visit today, we recorded the following information about you: Christal Lane RN 10/12/2024 10:47 AM Signed Received urine culture result from [facility]. To RR to review and file antibiotic. ELIEL Garcia Rebecca L, MD 10/12/2024 11:17 AM Signed rx for UTI sent, recultre in 4-[address] RN 10/12/2024 11:28 AM Signed Left message for patient to call office. ELIEL Garcia Jennifer, RN 10/12/2024 12:20 PM Signed Patient notified. Marium Patel RN Allergies As of Date: 10/12/2024 (No Known Allergies) Date Reviewed: 09/17/2024 Reviewed by: Crista Vasquez, LINCOLN.TESTING MACHINE OPERATOR - Fully Assessed Reason for Visit: Results [95] Primary Visit Diagnosis:Enterococc us UTI [N39.0, B95.2] Order(s):amoxicillin (AMOXIL) 500 mg capsuleTake 1 capsule by mouth three times a day for 7 days.Disp: 21 capsuleRfl: 0 Prescriptions as of 10/12/2024 - amoxicillin (AMOXIL) 500 mg capsule Take 1 capsule by mouth three times a day for 7 days. - Blood-Glucose Meter Use as directed to check glucose levels up to seven times daily. - blood sugar diagnostic test strip Use as directed to check glucose levels up to seven times daily. - Lancets Use as directed to check glucose levels up to seven times daily. - aspirin, enteric coated (ECOTRIN LOW STRENGTH) 81 mg EC tablet Take 1 tablet by mouth once daily. - PNV no.95/ferrous fum/folic ac ( ORAL) Take by mouth. Problem List As Of Date 10/12/2024 Noted Resolved GBS bacteriuria [R82.71] 11/26/2022 06/28/2024 Anemia complicating , third trimester *03/16/2023 06/28/2024 Abnormal glucose tolerance in (HCC) [*04/06/2023 06/28/2024 Short interval between pregnancies affecting pr*06/28/2024 Late care (HCC) [O09.30] 06/28/2024 Alcohol consumption during in first t*06/28/2024 Rubella non-immune status, antepartum (HCC) [O0*07/03/2024 Supervision of high risk in third tri*10/05/2024 Enterococcus UTI [N39.0, B95.2] 10/12/2024 Prescriptions ordered this encounter Disp Refills Start End AMOXICILLIN 500 MG CAPSULE 21 c* 0 10/12/2024 10/19/2024 Route: PO Sig: Take 1 capsule by mouth three times a day for 7 days. Encounter Status:Closed by MARIUM PATEL on 10/12/24 Normal [facility] Urine Cultureon 10-12-2024 [facility] Enterococcus faecalis [place] Count >100,000 Enterococcus faecalis: REACTION Ampicillin Islt LELAND <=2 Ciprofloxacin Islt LELAND 1 S Gentamicin Synergy Susc Islt SYN-S S levoFLOXacin Islt LELAND 1 S Linezolid Islt LELAND 2 S Nitrofurantoin Islt LELAND <=16 S Streptomycin High Pot Susc Islt SYN-S S Tetracycline Islt LELAND >=16 R Vancomycin Islt LELAND 2 S Normal [facility] Comment on above: Performed By: #### M 100.2200 #### [facility] [address]. [place], [place], [id number] Bilirubin Test strip Ql (U)O rdered By: Esme Jordan on 10-10-2024 Bilirubin Ql (U) Negative Negative [facility] Fibronectinon 10-11-19 fFIBRONECTIN Negative Normal [facility] Comment on above: Performed By: #### L 205.0000 #### [facility] [address] [place], [address] fibronectinOrdered By: Esme Jordan on 10-10-2024 Fibronectin. (Vag fld) [Mass/Vol] Negative [facility] Ketones Test strip Ql (U)Ord ered By: Esme Jordan on 10-10-2024 Ketones Ql (U) Negative Negative [facility] Nitrite Test strip Ql (U)Ord ered By: Esme Jordan on 10-10-2024 Nitrite Ql (U) Negative Negative [facility] OB Triage Physician Noteon 0 10-10-2024 OB Triage Physician Note [facility] Medical Records Department [address] [place] [address] OB Triage Physician Note 10/10/24 1732 MR#: [id number] Acct: [id number] Name: JIMMY LEMA Rep #: [id number] : 2005 19 From: Esme Jordan MD PCP: Care Physician,No Primary Status:DEP CLI Y Location: [facility] HPI - General General Date of Admission: 10/10/24 Date of Service: 10/10/24 Chief Complaint: ctxs HPI Narrative JIMMY LEMA, is a 19 F who presents 2 para 1 with history of 41-week vaginal delivery with her last presents at 32 weeks gestation complaining of contractions. She works on her feet a lot and started having some contractions approximately 3 days ago that have continued they got a little worse today so she decided to come into labor and delivery and be evaluated. She denies any dysuria, nausea vomiting diarrhea or constipation, fevers or chills Maternal Data Information Final JEFFERY: 12/05/24 Gestational age: 32 0/7 PFSH [facility] Medical History (Updated 10/10/24 @ 17:[address] Esme Jordan MD) Physical exam, pre-employment Anemia Seizures Allergy/AdvReac Type Severity Reaction Status Date / Time No Known Allergies Allergy Verified 10/10/24 15:30 Social History Smoking Status: Never smoker History Elective abortions Hx Para 0 Spontaneous abortions Hx # Term Pregnancies Ectopic pregnancies Hx # Pregnancies Multiple births # of living children NST FHR Rate Baby A Baseline: 130 Variability:: Moderate Accelerations:: 15 x 15 Decelerations:: None NST Reactive:: Yes Uterine Activity:: q2-4 min Assessment Plan (1) 32 weeks gestation of : (2) : (3) Threatened labor, antepartum: PLAN: No evidence of active labor. Patient feels better after rest and p.o. hydration. Will send urine for culture. Encourage patient to return if contractions become more severe or rupture of membranes otherwise follow-up in the office as scheduled. She is comfortable with this plan. 10/10/24 1735 Date Esme Jordan MD Cosigner Signature (if applicable): Date _ CC: Dr. Esme Jordan MD; No Primary Care Physician Signed Normal [facility] Protein Test strip Ql (U)Ord ered By: Esme Jordan on 10-10-2024 Protein Ql (U) 100 mg/dl High Negative [facility] Urinalysis, Routine (Dipstic k)on 10-10-2024 BILIRUBIN URINE Negative Normal Negative [facility] Comment on above: Order Comment: CLEAN CATCH Performed By: #### L 400.2010 #### [facility] [address] [place], [address] Clarity (U) Cloudy Normal Clear [facility] Comment on above: Order Comment: CLEAN CATCH Performed By: #### L 400.2010 #### [facility] [address] [place], [address] Color (U) Straw Normal Yellow [facility] Comment on above: Order Comment: CLEAN CATCH Performed By: #### L 400.2010 #### [facility] [address] [place], [address] GLUCOSE, UR Normal Normal Normal [facility] Comment on above: Order Comment: CLEAN CATCH Performed By: #### L 400.2010 #### [facility] [address] [place], [address] KETONE UR Negative Normal Negative [facility] Comment on above: Order Comment: CLEAN CATCH Performed By: #### L 400.2010 #### [facility] [address] [place], [address] LEUK ESTERASE 500 /ul Abnormal Negative [facility] Comment on above: Order Comment: CLEAN CATCH Performed By: #### L 400.2010 #### [facility] [address] [place], [address] Nitrite Ql (U) Negative Normal Negative [facility] Comment on above: Order Comment: CLEAN CATCH Performed By: #### L 400.2010 #### [facility] [address] [place], [address] OCCULT BLOOD-UR 25 /ul Abnormal Negative [facility] Comment on above: Order Comment: CLEAN CATCH Performed By: #### L 400.2010 #### [facility] [address] [place], [address] pH UR 6.5 Normal 5.0 - 8.0 [facility] Comment on above: Order Comment: CLEAN CATCH Performed By: #### L 400.2010 #### [facility] [address] [place], [address] PROT DIPSTX 100 mg/dl Abnormal Negative [facility] Comment on above: Order Comment: CLEAN CATCH Performed By: #### L 400.2010 #### [facility] [address] [place], [address] SP.GR. DIPSTX 1.010 Normal 1.002-1.030 [facility] Comment on above: Order Comment: CLEAN CATCH Performed By: #### L 400.2010 #### [facility] [address] [place], [address] UROBILI Normal Normal Normal [facility] Comment on above: Order Comment: CLEAN CATCH Performed By: #### L 400.2010 #### [facility] [address] [place], [address] Urine clarityOrdered By: Ximena Jordan on 10-10-2024 Clarity (U) Cloudy Clear [facility] Urine color determinationOrd ered By: Esme Jordan on 10-10-2024 Color (U) Straw Yellow [facility] Urine cultureOrdered By: Ximena Jordan on 10-10-2024 Bacteria identified Cx Nom (U) Enterococcus faecalis Abnormal [facility] Urine glucose detectionOrder ed By: Esme Jordan on 10-10-2024 Glucose Ql (U) Normal mg/dl Normal [facility] Urine leukocyte esterase det ection by dipstickOrdered By: Esme Jordan on 10-10-2024 Leukocyte esterase Test strip Ql (U) 500 /ul High Negative [facility] Urine pHOrdered By: Esme Jordan on 10-10-2024 pH (U) 6.5 [pH] 5.0 - 8.0 [facility] Urine specific gravity measu rementOrdered By: Esme Jordan on 10-10-2024 Specific gravity (U) [Rel density] 1.010 1.002-1.030 [facility] Urine urobilinogen measureme ntOrdered By: Esme oJrdan on 10-10-2024 Urobilinogen Ql (U) Normal mg/dl Normal [facility] CNPNon 10-06-2024 CNPN Telephone (OGFVWE) JIMMY LEMA ([id number]) 3 F Date Time Provider Department 10/06/24 NURSE BODILY INJURY ADJUSTER [facility] During your visit today, we recorded the following information about you: Alf Trevino RN 10/06/2024 12:23 PM Signed 3rd risk assessment form submitted 10/06/24 Alf Trevino RN Allergies As of Date: 10/06/2024 (No Known Allergies) Date Reviewed: 09/17/2024 Reviewed by: Crista Vasquez APRN.TESTING MACHINE OPERATOR - Fully Assessed Reason for Visit: PRAF [...] Status:Closed by ALF TREVINO on 10/06/24 Normal [facility] URINE OB DIP B/Oon Glucose Ql (U) Negative Neg mg/dL [facility] Interpretation and review of laboratory results Normal [facility] Protein.monoclonal (U) [Mass/Vol] Negative Neg mg/dL [facility] CNPNon 10-02-2024 CNPN Telephone (OBGYWM) JIMMY LEMA ([id number]) 3 F Date Time Provider Department 10/02/24 RAISA MACIAS OBGYWM During your visit today, we recorded the following information about you: Chi Galdamez RN 10/02/2024 2:11 PM Signed Written order received from [employer] for breast pump. Placed on KJ desk for signature. ELIEL Sandhu Lindsey, RN 10/24/2024 2:10 PM Signed Order signed and faxed. Darline Cruz RN Allergies As of Date: 10/02/2024 (No Known Allergies) Date Reviewed: 09/17/2024 Reviewed by: Crista Vasquez APRN.TESTING MACHINE OPERATOR - Fully Assessed Reason for Visit: breast pump [Other] Prescriptions as of 10/24/2024 - Blood-Glucose Meter Use as directed to check glucose levels up to seven times daily. - blood sugar diagnostic test strip Use as directed to check glucose levels up to seven times daily. - Lancets Use as directed to check glucose levels up to seven times daily. - aspirin, enteric coated (ECOTRIN LOW STRENGTH) 81 mg EC tablet Take 1 tablet by mouth once daily. - PNV no.95/ferrous fum/folic ac ( ORAL) Take by mouth. Problem List As Of Date 10/02/2024 Noted Resolved GBS bacteriuria [R82.71] 11/26/2022 06/28/2024 Anemia complicating , third trimester *03/16/2023 06/28/2024 Abnormal glucose tolerance in (HCC) [*04/06/2023 06/28/2024 Short interval between pregnancies affecting pr*06/28/2024 Late care (HCC) [O09.30] 06/28/2024 Encounter for supervision of high risk pregnanc*06/28/2024 Alcohol consumption during in first t*06/28/2024 Rubella non-immune status, antepartum (HCC) [O0*07/03/2024 Encounter Status:Closed by DARLINE CRUZ on 10/24/24 [facility] CNOVon 09-17-2024 CNOV Office Visit (WOUCA) JIMMY LEMA ([id number]) 3 F Date Time Provider Department 09/17/24 8:30 AM CRISTA VASQUEZ During your visit today, we recorded the following information about you: Temperature Pulse Respiration Blood pressure 96.9 degrees 94/minute 18/minute 112/62 Weight 56.6 kg Crista Vasquez APRN.CNP 09/17/2024 8:54 AM Signed This note was created using [employer]. Subjective Jimmy Lema is a 19 year [...] she will return for reevaluation. Crista Vasquez APRN.CNP Allergies As of Date: 09/17/2024 (No Known Allergies) Date Reviewed: 09/17/2024 Reviewed by: Crista Vasquez APRN.TESTING MACHINE OPERATOR - Fully Assessed Reason for Visit: Diarrhea [...] Encounter Status:Closed by CRISTA VASQUEZ on 09/17/24 [facility] 08-14-2024 [facility] Telephone (OGFVWE) JIMMY LEMA ([id number]) 3 F Date Time Provider Department 08/14/24 NURSE BODILY INJURY ADJUSTER [facility] During your visit today, we recorded [...] interval between pregnancies affecting pr*06/28/2024 Late care ([facility]) [O09.30] 06/28/2024 Encounter for supervision of high risk pregnanc*06/28/2024 Alcohol consumption during in first t*06/28/2024 Rubella non-immune status, antepartum ([facility]) [O0*07/03/2024 Encounter Status:Closed by ALF TREVINO on 08/14/24 Normal [facility] Examination level ultrasound on 07-12-2024 Indication Standard [...] 11 oz EFW by: Hadlock (HC-AC-FL) Extended Taffy Candy Maker 6.7 mm CM 4.5 mm 40% Nicolaides [...] normal LVOT view: normal 3-vessel view: normal 1-eppbax-rwevgeh view: normal Heart / Thorax Situs: situs [...] Read By: Brielle Norman M.D. MATERNAL MEDICINE [facility] Radiology Study observation (narrative) Anna mooney [facility] Lo 06-29-2024 [facility] Telephone (OGFVWE) JIMMY LEMA ([id number]) 3 F Date Time Provider Department 06/29/24 NURSE BODILY INJURY ADJUSTER [facility] During your visit today, we recorded [...] Status:Closed by ALF TREVINO on 06/29/24 Normal [facility] BACTERIAL VAGINOSIS NAATon 0 06-28-2024 Interpretation and review of laboratory results Normal [facility] Lactobacillus crispatus+gasseri+stein ii + Gardnerella vaginalis + Atopobium vaginae rRNA BAMBI+probe Ql (Vag fld) Not detected Not detected [facility] Lactobacillus crispatus+gasseri+stein ii + Gardnerella vaginalis + Atopobium vaginae rRNA BMABI+probe Ql (Vag fld) Not detected Normal Not detected [facility] Comment on above: Order Comment: Speci men Type: SWABOrdering Facility: [facility] Address: [address] [place] [address] Performed By: #### C VTV, BVAMP ####[facility] LABCLIA [id number] [place] [address] [place] Bacteria Ur Culton Bacteria identified Cx Nom (U) ORGANISM ID: 1 >=100,000 CFU/ml Normal urogenital twyla Normal [facility] Comment on above: Performed By: #### 6 30-4 ####[facility] LABIA [id number] [place] [address] [place] C. trachomatis+N. gonorrhoea e DNA BAMBI+probe Ql (Unsp spec)on 06-28-2024 C. trachomatis rRNA BAMBI+probe Ql (Unsp spec) Not detected Not detected [facility] Interpretation and review of laboratory results Normal [facility] N. gonorrhoeae rRNA BAMBI+probe Ql (Unsp spec) Not detected Not detected [facility] This FDA-approved assay has been modified to accept rectal swabs self-collected in a healthcare setting. For self-collected rectal swabs, the test was developed and its performance characteristics determined by the [facility]'s [facility] [place] ([facility]). It has not been cleared or approved by the FDA. -[facility] is regulated under CLIA as qualified to perform high-complexity testing. This test is used for clinical purposes. It should not be regarded as investigational or for research. [facility] C. trachomatis rRNA BAMBI+probe Ql (Unsp spec) Not detected Normal Not detected [facility] Comment on above: Order Comment: Speci men Type: SWABOrdering Facility: [facility] Address: [address] [place] [address] Performed By: #### 3 6902-5 ####[facility] LABCLIA [id number] [place] [id number] [place] N. gonorrhoeae rRNA BAMBI+probe Ql (Unsp spec) Not detected Normal Not detected [facility] Comment on above: Order Comment: Speci men Type: SWABOrdering Facility: [facility] Address: [address] [place] [address] Performed By: #### 3 6902-5 ####[facility] LABCLIA [id number] [place] [address] [place] SCARLET/TRICHOMONAS NAATon 0 06-28-2024 C. glabrata RNA BAMBI+probe Ql (Vag fld) Not detected Not detected [facility] Scarlet sp DNA BAMBI+probe Ql (Vag fld) Not detected Not detected [facility] Comment on above: The Scarlet species group target includes C. albicans, C. tropicalis, C. parapsilosis, and C. dubliniensis. Interpretation and review of laboratory results Normal [facility] T. vaginalis DNA BAMBI+probe Ql (Unsp spec) Not detected Not detected [facility] C. glabrata RNA BAMBI+probe Ql (Vag fld) Not detected Normal Not detected [facility] Comment on above: Order Comment: Speci men Type: SWABOrdering Facility: [facility] Address: [address] [place] [address] Performed By: #### C VTV, BVAMP ####[facility] LABCLIA [id number] [address] [place] Scarlet sp DNA BAMBI+probe Ql (Vag fld) Not detected Normal Not detected [facility] Comment on above: Order Comment: Speci men Type: SWABOrdering Facility: [facility] Address: [address] [place] [address] Result Comment: The Scarlet species group target includes C. albicans, C. tropicalis, C. parapsilosis, and C. dubliniensis. Performed By: #### C VTV, BVAMP ####[facility] LABCLIA [id number] [place] [address] [place] T. vaginalis DNA BAMBI+probe Ql (Unsp spec) Not detected Normal Not detected [facility] Comment on above: Order Comment: Speci men Type: SWABOrdering Facility: [facility] Address: [address] [place] [address] Performed By: #### C VTV, BVAMP ####[facility] LABCLIA [id number] [facility] [id number], [place] [address] [place] CBC W Auto Differential pane l (Bld)on 06-28-2024 Basophils (Bld) [#/Vol] 0.04 10*3/uL Normal <0.11 [facility] Comment on above: Order Comment: Speci men Type: BLOOD SPECIMENOrdering Facility: [facility] Address: [address] [place] [address] Performed By: #### 5 7021-8 ####[facility] [id number] [place] [address] [place] Basophils/100 WBC (Bld) 0.4 % Normal [facility] Comment on above: Order Comment: Speci men Type: BLOOD SPECIMENOrdering Facility: [facility] Address: [address] [place] [address] Performed By: #### 5 7021-8 ####[facility] [id number] [place] [address] [place] Differential cell count method Nom (Bld) Auto Normal [facility] Comment on above: Order Comment: Speci men Type: BLOOD SPECIMENOrdering Facility: [facility] Address: [address] [place] [address] Performed By: #### 5 7021-8 ####[facility] [id number] [place] [address] [place] Eosinophils (Bld) [#/Vol] 0.07 10*3/uL Normal <0.46 [facility] Comment on above: Order Comment: Speci men Type: BLOOD SPECIMENOrdering Facility: [facility] Address: [address] [place] [address] Performed By: #### 5 7021-8 ####[facility] [id number] [place] [address] [place] Eosinophils/100 WBC (Bld) 0.7 % Normal [facility] Comment on above: Order Comment: Speci men Type: BLOOD SPECIMENOrdering Facility: [facility] Address: [address] [place] [address] Performed By: #### 5 7021-8 ####[facility] [id number] [place] [address] [place] Erythrocyte distribution width (RBC) [Ratio] 13.3 % Normal 11.5-15.0 [facility] Comment on above: Order Comment: Speci men Type: BLOOD SPECIMENOrdering Facility: [facility] Address: [address] [place] [address] Performed By: #### 5 7021-8 ####[facility] [id number] [place] [address] [place] Hematocrit (Bld) [Volume fraction] 35.7 % Low 36.0-46.0 [facility] Comment on above: Order Comment: Speci men Type: BLOOD SPECIMENOrdering Facility: [facility] Address: [address] [place] [address] Performed By: #### 5 7021-8 ####[facility] [id number] [place] [address] [place] Hemoglobin (Bld) [Mass/Vol] 12.5 g/dL Normal 11.5-15.5 [facility] Comment on above: Order Comment: Speci men Type: BLOOD SPECIMENOrdering Facility: [facility] Address: [address] [place] [address] Performed By: #### 5 7021-8 ####[facility] [id number] [place] [address] [place] Immature granulocytes (Bld) [#/Vol] 0.07 10*3/uL Normal <0.10 [facility] Comment on above: Order Comment: Speci men Type: BLOOD SPECIMENOrdering Facility: [facility] Address: [address] [place] [address] Performed By: #### 5 7021-8 ####[facility] MILLJELENAWNCLIA [id number] [place] [address] [place] Immature granulocytes/100 WBC (Bld) 0.7 % Normal [facility] Comment on above: Order Comment: Speci men Type: BLOOD SPECIMENOrdering Facility: [facility] Address: [address] [place] [address] Performed By: #### 5 7021-8 ####[facility] [id number] [place] [address] [place] Lymphocytes (Bld) [#/Vol] 2.24 10*3/uL Normal 1.00-4.00 [facility] Comment on above: Order Comment: Speci men Type: BLOOD SPECIMENOrdering Facility: [facility] Address: [address] [place] [address] Performed By: #### 5 7021-8 ####[facility] EMERGENCYNCLIA [id number] [place] [address] [place] Lymphocytes/100 WBC (Bld) 22.0 % Normal [facility] Comment on above: Order Comment: Speci men Type: BLOOD SPECIMENOrdering Facility: [facility] Address: [address] [place] [address] Performed By: #### 5 7021-8 ####[facility]ITALWNCLIA [id number] [place] [address] [place] MCH (RBC) [Entitic mass] 31.7 pg Normal 26.0-34.0 [facility] Comment on above: Order Comment: Speci men Type: BLOOD SPECIMENOrdering Facility: [facility] Address: [address] [place] [address] Performed By: #### 5 7021-8 ####[facility] EMERGENCYNCLIA [id number] [place] [address] [place] MCHC (RBC) [Mass/Vol] 35.0 g/dL Normal 30.5-36.0 [facility] Comment on above: Order Comment: Speci men Type: BLOOD SPECIMENOrdering Facility: [facility] Address: [address] [place] [address] Performed By: #### 5 7021-8 ####[facility] [id number] [place] [address] [place] MCV (RBC) [Entitic vol] 90.6 fL Normal 80.0-100.0 [facility] Comment on above: Order Comment: Speci men Type: BLOOD SPECIMENOrdering Facility: [facility] Address: [address] [place] [address] Performed By: #### 5 7021-8 ####[facility] [id number] [place] [address] [place] Monocytes (Bld) [#/Vol] 0.58 10*3/uL Normal <0.87 [facility] Comment on above: Order Comment: Speci men Type: BLOOD SPECIMENOrdering Facility: [facility] Address: [address] [place] [address] Performed By: #### 5 7021-8 ####[facility] [id number] [place] [address] [place] Monocytes/100 WBC (Bld) 5.7 % Normal C [facility] Comment on above: Order Comment: Speci men Type: BLOOD SPECIMENOrdering Facility: [facility] Address: [address] [place] [address] Performed By: #### 5 7021-8 ####[facility] [id number] [place] [address] [place] Neutrophils (Bld) [#/Vol] 7.16 10*3/uL Normal 1.45-7.50 [facility] Comment on above: Order Comment: Speci men Type: BLOOD SPECIMENOrdering Facility: [facility] Address: [address] [place] [address] Performed By: #### 5 7021-8 ####[facility]ENCYNCBRIGH[facility] [id number] [place] [address] [place] Neutrophils/100 WBC (Bld) 70.5 % Normal [facility] Comment on above: Order Comment: Speci men Type: BLOOD SPECIMENOrdering Facility: [facility] Address: [address] [place] [address] Performed By: #### 5 7021-8 ####[facility] [id number] [place] [address] [place] Nucleated RBC (Bld) [#/Vol] 10*3/uL Normal <0.01 [facility] Comment on above: Order Comment: Speci men Type: BLOOD SPECIMENOrdering Facility: [facility] Address: [address] [place] [address] Performed By: #### 5 7021-8 ####[facility] EMERGENCYNCLI [id number] [place] [address] [place] Nucleated RBC/100 WBC (Bld) [Ratio] 0.0 /100 WBC Normal [facility] Comment on above: Order Comment: Speci men Type: BLOOD SPECIMENOrdering Facility: [facility] Address: [address] [place] [address] Performed By: #### 5 7021-8 ####[facility] [id number] [place] [address] [place] Platelet mean volume (Bld) [Entitic vol] 9.5 fL Normal 9.0-12.7 [facility] Comment on above: Order Comment: Speci men Type: BLOOD SPECIMENOrdering Facility: [facility] Address: [address] [place] [address] Performed By: #### 5 7021-8 ####[facility]OBBYNCELLENA [id number] [place] [address] [place] Platelets (Bld) [#/Vol] 229 10*3/uL Normal 150-400 [facility] Comment on above: Order Comment: Speci men Type: BLOOD SPECIMENOrdering Facility: [facility] Address: [address] [place] [address] Performed By: #### 5 7021-8 ####[facility]ENCYNCLIA [id number] [place] [address] [place] RBC (Bld) [#/Vol] 3.94 10*6/uL Normal 3.90-5.20 [facility] Comment on above: Order Comment: Speci men Type: BLOOD SPECIMENOrdering Facility: [facility] Address: [address] [place] [address] Performed By: #### 5 7021-8 ####[facility] EM[facility]GENCYNCA [id number] [place] [address] [place] WBC (Bld) [#/Vol] 10.16 10*3/uL Normal 3.70-11.00 [facility] Comment on above: Order Comment: Speci men Type: BLOOD SPECIMENOrdering Facility: [facility] Address: [address] [place] [address] Performed By: #### 5 7021-8 ####[facility] EM[facility]GENCYNCLIA [id number] [place] [address] [place] [facility] [place] HBV surface Ag Ql (S)on 06-07 Interpretation and review of laboratory results Normal [facility] HBV surface Ag Ser Qlon 06-07 HBV surface Ag Ql (S) Negative Normal Negative [facility] Comment on above: Order Comment: Speci men Type: BLOOD SPECIMENOrdering Facility: [facility] Address: [address] [place] [address] Performed By: #### 7 3752-8, 32063-0, 5195-3 ####[facility] LABCLIA [id number] [place] [address] [place] HCV Ab Ql (S)on 06-28-2024 Interpretation and review of laboratory results Normal [facility] HCV Ab Ser Qlon 06-28-2024 HCV Ab Ql (S) Negative Normal Negative [facility] Comment on above: Order Comment: Speci men Type: BLOOD SPECIMENOrdering Facility: [facility] Address: [address] [place] [address] Result Comment: The result suggests no evidence of infection with Hepatitis C virus. Should recent infection be suspected, repeat testing may be considered 4-6 weeks after this draw. Performed By: #### 1 6128-1 ####[facility] LABCLIA [id number] [address] OF [place] HEPATITIS B SURFACE ANTIGENo n 06-28-2024 HBV surface Ag Ql (S) Negative Negative [facility] HEPATITIS C ANTIBODY IA WITH CONFIRMATIONon 06-28-2024 HCV Ab Ql (S) Negative Negative [facility] Comment on above: The result suggests no evidence of infection with Hepatitis C virus. Should recent infection be suspected, repeat testing may be considered 4-6 weeks after this draw. HIV 1+2 Ab IA Qlon HIV 1 and 2 Ab IA.rapid Nom (S/P/Bld) [facility] Comment on above: Test not indicated. HIV 1+2 Ab+HIV1 p24 Ag IA Ql Non-Reactive Nonreactive [facility] HIV immunoassay testing algorithm interpretation (S/P/Bld) [Interp] [facility] Comment on above: No evidence of HIV-1 or HIV-2 infection. Should recent infection be suspected, repeat testing may be considered 2-3 weeks after this draw. [place] Rev. Code 3701.243(E): This information has been [...] release of HIV test results or diagnoses. [facility] HIV 1 and 2 Ab IA.rapid Nom (S/P/Bld) Normal [facility] Comment on above: Order Comment: Speci men Type: BLOOD SPECIMENOrdering Facility: [facility] Address: [address] [place] [address] Result Comment: Test not indicated. Performed By: #### 7 3752-8, 87854-4, 5195-3 ####[facility] LABCLIA [id number] [place] [address] [place] HIV 1+2 Ab+HIV1 p24 Ag IA Ql Non-Reactive Normal Nonreactive [facility] Comment on above: Order Comment: Speci men Type: BLOOD SPECIMENOrdering Facility: [facility] Address: [address] [place] [address] Performed By: #### 7 3752-8, 58379-2, 5195-3 ####[facility] LABCLIA [id number] [place] [address] [place] HIV immunoassay testing algorithm interpretation (S/P/Bld) [Interp] Normal [facility] Comment on above: Order Comment: Speci men Type: BLOOD SPECIMENOrdering Facility: [facility] Address: [address] [place] [address] Result Comment: No e vidence of HIV-1 or HIV-2 infection. Should recent infection be suspected, repeat testing may be considered 2-3 weeks after this draw. [place] Rev. Code 3701.243(E): This information has been [...] or diagnoses. Performed By: #### 7 3752-8, 51840-3, 5195-3 ####[facility] LABCLIA [id number] [place] [address] [place] HbA1c (Bld)on 06-28-2024 Average glucose Estimated from glycated hemoglobin (Bld) [Mass/Vol] 100 mg/dL [facility] Comment on above: eAG: (Estimated aver age glucose) is a calculated value from HgbA1c and is inbound customer service representative of the average blood glucose level in the last 2-3 month period. HbA1c (Bld) [Mass fraction] 5.1 % 4.3 - 5.6 % [facility] Comment on above: [place] [employer] As sociation guidelines indicate that patients with HgbA1c in the range 5.7-6.4% are at increased risk for development of diabetes, and intervention by lifestyle modification may be beneficial. HgbA1c greater or equal to 6.5% is considered diagnostic of diabetes. [facility] Average glucose Estimated from glycated hemoglobin (Bld) [Mass/Vol] 100 mg/dL Normal [facility] Comment on above: Order Comment: Laura gill Type: BLOOD SPECIMENOrdering Facility: [facility] Address: [address] [place] [address] Result Comment: eAG: (Estimated average glucose) is a calculated value from HgbA1c and is inbound customer service representative of the average blood glucose level in the last 2-3 month period. Performed By: #### 5 5454-3 ####[facility] LABCLIA [id number] [place] [address] [place] HbA1c (Bld) [Mass fraction] 5.1 % Normal 4.3-5.6 [facility] Comment on above: Order Comment: Laura [facility] Type: BLOOD SPECIMENOrdering Facility: [facility] Address: [address] [place] [address] Result Comment: Amer [place] Diabetes Association guidelines indicate that patients with HgbA1c in the range 5.7-6.4% are at increased risk for development of diabetes, and intervention by lifestyle modification may be beneficial. HgbA1c greater or equal to 6.5% is considered diagnostic of diabetes. Performed By: #### 5 5454-3 ####[facility] LABCLIA [id number] [place] [address] [place] [id number] PLUSon 06-28-2024 Cell-free DNA./Cell-free DNA.total Dosage of chromosome-specific cfDNA (cfDNA) [Molar fraction] 23% Normal [facility] Comment on above: Order Comment: Speci men Type: BLOOD SPECIMENOrdering Facility: [facility] Address: [address] [place] [address] Performed By: #### M AT21 ####[facility] LABCLIA [id number] [place] [address] Chr 13+18+21+X+Y aneuploidy Dosage of chromosome-specific cfDNA Ql (cfDNA) Negative Normal [facility] Comment on above: Order Comment: Speci men Type: BLOOD SPECIMENOrdering Facility: [facility] Address: [address] [place] [address] Performed By: #### M AT21 ####[facility] LABCLIA [id number] [place] [address] Chr 21 trisomy Dosage of chromosome-specific cfDNA Ql (cfDNA) Negative Normal [facility] Comment on above: Order Comment: Speci men Type: BLOOD SPECIMENOrdering Facility: [facility] Address: [address] [place] [address] Performed By: #### M AT21 ####[facility] LABCLIA [id number] [place] [address] Chr X and Y aneuploidy risk Sequencing Ql (cfDNA) [Interp] Not detected Normal [facility] Comment on above: Order Comment: Speci men Type: BLOOD SPECIMENOrdering Facility: [facility] Address: [address] [place] [address] Result Comment: Not Detected Not Detected Performed By: #### M AT21 ####[facility] LABCLIA [id number] [place] [address] Citation Issa (Reference lab test) Comment Normal [facility] Comment on above: Order Comment: Speci men Type: BLOOD SPECIMENOrdering Facility: [facility] Address: [address] [place] [address] Result Comment: 1. P shu JIMENEZ, et al. Jennifer Med. 2012;14(3):296-305. 2. Liberty CURRY et al. Prenat Diag. 2013;33(6):591-597. 3. Maurice C, et al. Clin Chem. 2015 Apr;61(4):608-616. 4. Gael JIMENEZ, et al. Jennifer Med. 2011;13(11):913-920. 5. ACOG/SMFM Practice Bulletin No. 226, Dec 2019. Performed By: #### M AT21 ####[facility] LABCLIA [id number] [place] [address] Gestational age Estimated from conception date Garza Normal [facility] Comment on above: Order Comment: Speci men Type: BLOOD SPECIMENOrdering Facility: [facility] Address: [address] [place] [address] Performed By: #### M AT21 ####[facility] LABCLIA [id number] [place] [address] GESTATIONALAGE AGE > OR = 9W Yes Normal [facility] Comment on above: Order Comment: Speci men Type: BLOOD SPECIMENOrdering Facility: [facility] Address: [address] [place] [address] Performed By: #### M AT21 ####[facility] LABCLIA [id number] [place] [address] Laboratory comment Issa (Report) Comment Normal [facility] Comment on above: Order Comment: Speci men Type: BLOOD SPECIMENOrdering Facility: [facility] Address: [address] [place] [address] Result Comment: The MaterniT(R) 21 PLUS laboratory-developed test (LDT) analyzes circulating cell-free DNA from a maternal blood sample. This test is used for screening purposes and not diagnostic. Clinical correlation is recommended. Validation data on twin pregnancies is limited and the ability of this test to detect aneuploidy in higher multiple gestations has not yet been validated. Performed By: #### M AT21 ####[facility] LABCLIA [id number] [place] [address] director regulatory agency name Nom (Provider) Comment Normal [facility] Comment on above: Order Comment: Speci men Type: BLOOD SPECIMENOrdering Facility: [facility] Address: [address] [place] [address] Result Comment: This specimen showed an expected representation of chromosome 21, 18 and 13 material. Clinical correlation is suggested. Comment Cj Morocho MD, PhD, Director, [facility] Performed By: #### M AT21 ####[facility] LABCLIA [id number] [place] [id number] LIMITATIONS OF THE TEST Comment Normal [facility] Comment on above: Order Comment: Speci men Type: BLOOD SPECIMENOrdering Facility: [facility] Address: [address] [place] [address] Result Comment: Hien tolliver the results of [...] and Fragmin(R)). Performed By: #### M AT21 ####[facility] LABCLIA [id number] [place] [address] Monosomy X risk Dosage of chromosome-specific cfDNA Ql (Plasma cell-free+WBC DNA) [Interp] Not detected Normal [facility] Comment on above: Order Comment: Speci men Type: BLOOD SPECIMENOrdering Facility: [facility] Address: [address] [place] [address] Performed By: #### M AT21 ####[facility] LABCLIA [id number] [place] [address] NEGATIVE PREDICTIVE VALUE Note Normal [facility] Comment on above: Order Comment: Speci men Type: BLOOD SPECIMENOrdering Facility: [facility] Address: [address] [place] [address] Result Comment: The Negative Predictive Value (NPV) for trisomy 21, 18, and 13 is greater than 99%. The NPV for SCA and ESS cannot be calculated as SCA and ESS are only reported when an abnormality is detected. Performed By: #### M AT21 ####[facility] LABCLIA [id number] [place] [address] PERFORMANCE CHARACTERISTICS Note Normal [facility] Comment on above: Order Comment: Speci men Type: BLOOD SPECIMENOrdering Facility: [facility] Address: [address], [place] [address] Result Comment: ! Sex ! Accuracy: 99.4% [...] ! ! ! * As reported in [facility] database nstd37 [https://www.ncbi.nlm.nih.gov/dbvar/studies/nstd37/ ] # [...] gestation only. Performed By: #### M AT21 ####[employer] Genetics Technologies CorporationIA [id number] [place] [address] POSITIVE PREDICTIVE VALUE N/A Normal [facility] Comment on above: Order Comment: Laura gill Type: BLOOD SPECIMENOrdering Facility: [facility] Address: [address] [place] [address] Performed By: #### M AT21 ####[facility] LABAppsideIA [id number] [place] [address] Reference Lab Test Method Comment Normal [facility] Comment on above: Order Comment: Laura gill Type: BLOOD SPECIMENOrdering Facility: [facility] Address: [address] [place] [address] Result Comment: See Notes Circulating cell-free DNA [...] and 22. Performed By: #### M AT21 ####[facility] LABAppsideIA [id number] [place] [address] Service comment (Unsp spec) [Interp] Comment Normal [facility] Comment on above: Order Comment: Speci men Type: BLOOD SPECIMENOrdering Facility: [facility] Address: [address] [place] [address] Result Comment: See Notes [employer] is a subsidiary of [employer], using the brand [employer]. This test was developed and its performance characteristics determined by [employer]. It has not been cleared or approved by the Food and Drug Administration. This laboratory is certified under the Clinical Laboratory Improvement Amendments (CLIA) as qualified to perform high complexity clinical laboratory testing and accredited by the College [employer] (CAP). If there is future clinical need for adding MaterniT GENOME testing, this specimen will be available until term. [facility] samples will not be retained beyond 60 days. [facility] patients will have to send a new sample for re-sequencing ([facility] Test Code: 818472). Performed By: #### M AT21 ####[facility] LABCLIA [id number] [place] [address] Sex Dosage of chromosome-specific cfDNA Nom (cfDNA) Comment Normal [facility] Comment on above: Order Comment: Speci men Type: BLOOD SPECIMENOrdering Facility: [facility] Address: [address] [place] [address] Result Comment: Cons istent with Male Performed By: #### M AT21 ####[facility] LABCLIA [id number] [place] [address] Test performance information Issa (Unsp spec) Comment Normal [facility] Comment on above: Order Comment: Speci men Type: BLOOD SPECIMENOrdering Facility: [facility] Address: [address] [place] [address] Result Comment: The performance characteristics of the MaterniT(R) 21 PLUS laboratory-developed test (LDT) have been determined in a clinical validation study with women at increased risk for chromosomal aneuploidy.[1-4] Performed By: #### M AT21 ####[facility] LABCLIA [id number] [place] [address] Trisomy 13 risk Dosage of chromosome-specific cfDNA Ql (cfDNA) [Interp] Negative Normal [facility] Comment on above: Order Comment: Speci men Type: BLOOD SPECIMENOrdering Facility: [facility] Address: [address] [place] [address] Performed By: #### M AT21 ####[facility] LABCLIA [id number] [place] [address] Trisomy 18 risk Dosage of chromosome-specific cfDNA Ql (Plasma cell-free+WBC DNA) [Interp] Negative Normal [facility] Comment on above: Order Comment: Speci men Type: BLOOD SPECIMENOrdering Facility: [facility] Address: [address] [place] [address] Performed By: #### M AT21 ####[facility] LABCLIA [id number] [place] [address] POC CASHIER TICKET SELLING ULTRASOUNDon 06-29-19 Indication Viability; confirm cardiac activity, [...] Read By: Gina Kulkarni CNM MATERNAL MEDICINE [facility] Radiology Study observation (narrative) [facility] RUBELLA IGG ANTIBODYon 06-28 Interpretation and review of laboratory results Abnormal [facility] Rubella IgG, Qual Negative Abnormal Positive [facility] Comment on above: The result suggests no history of Rubella vaccination or exposure to Rubella virus, however, some individuals with past history of Rubella vaccination may test negative using this test as immunity to Rubella virus wanes over time after vaccination. Please correlate with vaccination history if applicable. [facility] RUBELLA IGG AB, QUAL Negative Abnormal Positive [facility] Comment on above: Order Comment: Speccharlene gill Type: BLOOD SPECIMENOrdering Facility: [facility] Address: [address] [place] [address] Result Comment: The result suggests no history of Rubella vaccination or exposure to Rubella virus, however, some individuals with past history of Rubella vaccination may test negative using this test as immunity to Rubella virus wanes over time after vaccination. Please correlate with vaccination history if applicable. Performed By: #### R UBIGG ####[facility] LABCLIA [id number] [place] [address] [place] Reagin and Treponema pallidu m IgG and IgM [Interp]on 06-28-2024 T. pallidum IgG+IgM IA Ql (S) Non-Reactive Nonreactive [facility] T. pallidum IgG+IgM IA Ql (S) Non-Reactive Normal Nonreactive [facility] Comment on above: Order Comment: Laura gill Type: BLOOD SPECIMENOrdering Facility: [facility] Address: [address] [place] [address] Performed By: #### 7 3752-8, 21849-5, 5195-3 ####[facility] LABCLIA [id number] [place] [address] [place] Reagin+T pallidum IgG+IgM Se rPl-Impon 06-28-2024 Reagin and Treponema pallidum IgG and IgM [Interp] Cannot exclude recent Treponemal infection if specimen collected within 7-10 days after appearance of suspect lesions or 2-3 weeks after an exposure. Clinical correlation is required. Normal [facility] Comment on above: Order Comment: Speci men Type: BLOOD SPECIMENOrdering Facility: [facility] Address: [address] [place] [address] Performed By: #### 7 3752-8, 00695-2, 5195-3 ####[facility] LABCLIA [id number] [place] [address] [place] SYPHILIS TREPONEMAL W/REFLEX on 06-28-2024 Reagin and Treponema pallidum IgG and IgM [Interp] Cannot exclude recent Treponemal infection if specimen collected within 7-10 days after appearance of suspect lesions or 2-3 weeks after an exposure. Clinical correlation is required. [facility] TYPE + SCREEN PRENATALon ABO group Nom (Bld) O [facility] Blood group antibody screen Ql Negative [facility] Rh Nom (Bld) Positive [facility] Type and Screen Expiration 07/01/2024 23:59 [facility] ABO O Normal [facility] Comment on above: Order Comment: Speci men Type: BLOOD SPECIMENOrdering Facility: [facility] Address: [address] [place] [address] Performed By: #### T SPN ####CC MAIN BLOOD BANKCLIA [id number] [place] [address] [place] Rh Nom (Bld) Positive Normal [facility] Comment on above: Order Comment: Speci men Type: BLOOD SPECIMENOrdering Facility: [facility] Address: [address] [place] [address] Performed By: #### T SPN ####CC MAIN BLOOD BANKCLIA [id number] [place] [address] [place] TYPE AND SCREEN EXPIRATION 07/01/2024 23:59 Normal [facility] Comment on above: Order Comment: Speci men Type: BLOOD SPECIMENOrdering Facility: [facility] Address: [address] [place] [address] Performed By: #### T SPN ####CC MAIN BLOOD BANKCLIA [id number] [address] [address] [facility] Lo 04-07-2024 CNPN Telephone (PEDSWS) PITAJIMMY L ([id number]) 3 F Date Time Provider Department 04/07/24 [...] contact office to schedule sports ortho consult. Game Designer's decision tree advises to schedule patient to neurology for the area of concern, PSS unable to override decision tree. Please notify patient and schedulers how to proceed with scheduling patient in the appropriate department. Marah Nguyen RN 04/08/2024 8:55 AM Signed Was the attempt to schedule through peds ortho? 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 Gear Machine Operator: [employer] Transcribe Date/Time: Apr 06 2024 10:14A Dictated by : JOANNE HERRING MD This examination was interpreted and the report reviewed and electronically signed by: JOANNE HERRING MD on Apr 06 2024 10:16AM [facility] DIVISION OF RADIOLOGY * * [...] significant osteophyte formation. DIVISION OF RADIOLOGY Provider, [facility] - 04/06/2024 * * *Final Report* * [...] IMPRESSION: Transitional vertebra at the lumbosacral junction. Gear Machine Operator: HIRAM Transcribe Date/Time: Apr 06 2024 10:14A Dictated by : JOANNE HERRING MD This examination was interpreted and the report reviewed and electronically signed by: JOANNE HERRING MD on Apr 06 2024 10:16AM EST [facility] XR Sacrum and Coccyx 3 Views Ordered By: Ccf Provider on 04-06-2024 [facility] CNOVon 04-05-2024 CNOV Office Visit (PEDSWS) JIMMY LEMA ([id number]) 3 F Date Time Provider Department 04/05/24 3:00 PM DIANA VELAZQUEZ PEDSWS During your visit today, we recorded the [...] trying to do this. will not reorder. Esme Jordan MD Anemia Complicating , Third Trimester - [...] Diagnosis:Bony abnormality [Q79.9] Order(s):XR SACRUM/COCCYX 3V AP/LAT [[id number]] Order #: [id number] FUTURE Prescriptions as of 04/13/2024 - PAIN [...] Status:Closed by DIANA VELAZQUEZ on 04/13/24 Normal [facility] XR SACRUM/COCCYX 3V AP/LATon 04-05-2024 XR SACRUM/COCCYX [...] IMPRESSION: Transitional vertebra at the lumbosacral junction. Gear Machine Operator: HIRAM Transcribe Date/Time: Apr 06 2024 10:14A Dictated by : JOANNE HERRING MD This examination was interpreted and the report reviewed and electronically signed by: JOANNE HERRING MD on Apr 06 2024 10:16AM EST [id number] Normal [facility] XR Sacrum and Coccyx 3 Views on 04-05-2024 Radiology Study [facility]narrative[facility] Lo 03-16-2024 CNPN Telephone (OBGYWM) JIMMY LEMA ([id number]) 3 F Date Time Provider Department 03/16/24 SIOMARA LANZA OBGYWM During your visit today, we recorded the following information about you: Siomara Lanza APRN.CNP 03/16/2024 8:54 AM Signed Based on urinalysis it does appear the patient has a urinary tract infection Macrobid into drug [facility] in [place]. Please notify patient. Siomara Lanza APRN.Chi Lerma RN 03/16/2024 10:03 AM Signed Pt notified and voiced understanding. Chi Galdamez RN Allergies As of Date: 03/16/2024 (No Known Allergies) Date Reviewed: 07/29/2023 Reviewed by: Paulina Chadwick APRN.[place] - Fully Assessed Reason for Visit: Results [...] day for 7 days. Encounter Status:Closed by HCI GALDAMEZ on 03/16/24 Normal [facility] Bacteria Ur Culton 5 Bacteria identified Cx Nom (U) ORGANISM ID: [...] , Intermediate >32 , Resistant >64 Abnormal [facility] Comment on above: Performed By: #### 6 30-4 ####[facility] LABCLIA [id number] [address] [place] Urinalysis complete panel (U )on 03-15-2024 BACTERIA UL >9821 High Negative [facility] Comment on above: Order Comment: Speci men Type: URINE SPECIMENOrdering Facility: [facility] Address: [address] [place] [address] Performed By: #### 2 4356-8 ####[facility] LABCLIA [id number] [place] [address] [place] Bilirubin Ql (U) Negative Normal Negative [facility] Comment on above: Order Comment: Speci men Type: URINE SPECIMENOrdering Facility: [facility] Address: [address] [place] [address] Performed By: #### 2 4356-8 ####[facility] LABCLIA [id number] [place] [address] [place] Clarity (Unsp spec) Cloudy Abnormal Clear [facility] Comment on above: Order Comment: Speci men Type: URINE SPECIMENOrdering Facility: [facility] Address: [address] [place] [address] Performed By: #### 2 4356-8 ####[facility] LABCLIA [id number] [place] [address] [place] Color (U) Yellow Normal Yellow [facility] Comment on above: Order Comment: Speci men Type: URINE SPECIMENOrdering Facility: [facility] Address: [address] [place] [address] Performed By: #### 2 4356-8 ####[facility] LABCLIA [id number] [place] [address] [place] Epithelial cells LM.HPF (Urine sed) [#/Area] Many Normal [facility] Comment on above: Order Comment: Speci men Type: URINE SPECIMENOrdering Facility: [facility] Address: [address] [place] [address] Result Comment: Few Performed By: #### 2 4356-8 ####[facility] LABCLIA [id number] [place] [address] [place] Glucose Test strip (U) [Mass/Vol] Negative Normal Negative [facility] Comment on above: Order Comment: Speci men Type: URINE SPECIMENOrdering Facility: [facility] Address: [address] [place] [address] Performed By: #### 2 4356-8 ####[facility] LABCLIA [id number] [place] [address] [place] Hemoglobin Ql (U) 2+ Abnormal Negative [facility] Comment on above: Order Comment: Speci men Type: URINE SPECIMENOrdering Facility: [facility] Address: [address] [place] [address] Performed By: #### 2 4356-8 ####[facility] LABCLIA [id number] [place] [address] [place] Hyaline casts (Urine sed) [#/Area] 1-3 /LPF Abnormal 0 /LPF [facility] Comment on above: Order Comment: Speci men Type: URINE SPECIMENOrdering Facility: [facility] Address: [address] [place] [address] Performed By: #### 2 4356-8 ####[facility] LABCLIA [id number] [place] [address] [place] Ketones Ql (U) Trace Abnormal Negative [facility] Comment on above: Order Comment: Speci men Type: URINE SPECIMENOrdering Facility: [facility] Address: [address] [place] [address] Performed By: #### 2 4356-8 ####[facility] LABCLIA [id number] [place] [address] [place] Leukocyte esterase Test strip Ql (U) 1+ Abnormal Negative [facility] Comment on above: Order Comment: Speci men Type: URINE SPECIMENOrdering Facility: [facility] Address: [address] [place] [address] Performed By: #### 2 4356-8 ####[facility] LABCLIA [id number] [place] [address] [place] Nitrite Ql (U) Negative Normal Negative [facility] Comment on above: Order Comment: Speci men Type: URINE SPECIMENOrdering Facility: [facility] Address: [address] [place] [address] Performed By: #### 2 4356-8 ####[facility] LABCLIA [id number] [place] [address] [place] pH (U) 5.5 [pH] Normal <8.5 [facility] Comment on above: Order Comment: Speci men Type: URINE SPECIMENOrdering Facility: [facility] Address: [address] [place] [address] Performed By: #### 2 4356-8 ####[facility] LABCLIA [id number] [place] [address] [place] Protein (U) [Mass/Vol] 2+ Abnormal Negative [facility] Comment on above: Order Comment: Speci men Type: URINE SPECIMENOrdering Facility: [facility] Address: [address] [place] [address] Performed By: #### 2 4356-8 ####[facility] LABIA [id number] [place] [address] [place] RBC LM.HPF (Urine sed) [#/Area] /[HPF] Abnormal 0-2 /HPF [facility] Comment on above: Order Comment: Speci men Type: URINE SPECIMENOrdering Facility: [facility] Address: [address] [place] [address] Performed By: #### 2 4356-8 ####[facility] LABIA [id number] [place] [address] [place] Specific gravity (U) [Rel density] 1.026 Normal 1.005-1.030 [facility] Comment on above: Order Comment: Speci men Type: URINE SPECIMENOrdering Facility: [facility] Address: [address] [place] [address] Performed By: #### 2 4356-8 ####[facility] LABIA [id number] [place] [address] [place] Urobilinogen Ql (U) 0.2 EU/dL Normal 0.2-1.0 EU/dL [facility] Comment on above: Order Comment: Speci men Type: URINE SPECIMENOrdering Facility: [facility] Address: [address] [place] [address] Performed By: #### 2 4356-8 ####[facility] LABIA [id number] [place] [address] [place] WBC LM.HPF (Urine sed) [#/Area] /[HPF] Abnormal 0-5 /HPF [facility] Comment on above: Order Comment: Speci men Type: URINE SPECIMENOrdering Facility: [facility] Address: [address] [place] [address] Performed By: #### 2 4356-8 ####[facility] [id number] [place] [address] [place] Urgent Care Visit Reporton 0 12-01-2023 Urgent Care Visit Report [facility] [address], [address] [place] [address] OFFICE VISIT Date of Service: 12/01/23 MR#: [id number] Acct: [id number] Name: PITAJIMMY SADI Rep #: [id number] : 2005 Provider: KATLYN Gibbs Age/Sex: 18/F Location: [facility] Status: Signed Intake Vital Signs 07/05/23 11:31 Height 5 ft 3 in Intake Visit Reasons: PRE EMP/NON DOT/PHYSICAL/[place] Chief Complaint: feeding assessment Allergies No Known Allergies Allergy (Verified 06/16/23 19:28) PFSH Medical History (Updated 12/01/23 @ 08:33 by [...] Cosigner Signature: Date (if applicable) CC: Normal [facility] Absolute lymphocyte countOrd ered By: Gina Kulkarni on 06-16-2023 Lymphocytes Auto (Unsp spec) [#/Vol] 1.70 10*3/uL 0.83-4.51 [facility] Automated lymphocyte count a s percentage of total leukocytesOrdered By: Gina Kulkarni on 06-16-2023 Lymphocytes/100 WBC Auto (Unsp spec) 14.0 % 19-41 [facility] Basophil percentageOrdered B y: Gina Kulkarni on 06-16-2023 Basophils/100 WBC (Bld) 0.3 % 0-[address] [facility] Eosinophils/100 WBC (Bld) 0.3 % 0-5 [facility] Hemoglobin (Bld) [Mass/Vol] 12.0 g/dL 12.0-15.0 [facility] Monocytes/100 WBC (Bld) 8.1 % 0-[address] [facility] Neutrophils (Bld) [#/Vol] 9.2 10*3/uL 2.0-7.7 [facility] Neutrophils/100 WBC (Bld) 75.7 % 47-70 [facility] WBC (Bld) [#/Vol] 12.2 10*3/uL 4.4-11.0 [facility] Determination of erythrocyte mean corpuscular volume (MCV)Ordered By: Gina Kulkarni on 06-16-2023 MCV (RBC) [Entitic vol] 94.7 fL 81-[address] [facility] Erythrocyte distribution wid th ratioOrdered By: Gina Kulkarni on 06-16-2023 Erythrocyte distribution width (RBC) [Ratio] 13.8 % 11.6-14.6 [facility] Erythrocyte distribution wid th standard deviationOrdered By: Gina Kulkarni on 06-16-2023 Erythrocyte distribution width (RBC) [Entitic vol] 48.0 fL 35.1-43.9 [facility] Hematocrit Auto (Bld) [Volum e fraction]Ordered By: Gina Kulkarni on 06-16-2023 Hematocrit (Bld) [Volume fraction] 35.5 % 37-47 [facility] Immature granulocytes/100 WB C Auto (Bld)Ordered By: Gina Kulkarni on 06-16-2023 Immature granulocytes/100 WBC (Bld) 1.600 % 0.0-0.9 [facility] Comment on above: IG% - Immature Granu locytes (promyelocytes, myelocytes and metamyelocytes) > 1% indicates that a LEFT SHIFT is Present. Laboratory - Hematology and Cell countsOrdered By: Gina Kulkarni on 06-16-2023 MCH (RBC) [Entitic mass] 32.0 pg 27.0-32.0 [facility] MCHC (RBC) [Mass/Vol] 33.8 g/dL 32-36 [facility] Nucleated RBC/100 WBC (Bld) [Ratio] 0 % 0-5 [facility] Platelet mean volume (Bld) [Entitic vol] 10.6 fL 6.2-12.0 [facility] Platelets (Bld) [#/Vol] 214 10*3/uL 150-450 [facility] RBC Auto (Bld) [#/Vol]Ordere d By: Gina Kulkarni on 06-16-2023 RBC (Bld) [#/Vol] 3.75 10*6/uL 4.2-5.4 [facility] Serum Treponema species anti body detectionOrdered By: Gina Kulkanri on 06-16-2023 Treponema sp Ab Ql (S) Non-Reactive [facility] URINE OB DIP B/Oon 4 Glucose Ql (U) Negative Neg mg/dL [facility] Protein.monoclonal (U) [Mass/Vol] 100 mg/dL Neg mg/dL [facility] URINE OB DIP B/Oon 4 Glucose Ql (U) Negative Neg mg/dL [facility] Protein.monoclonal (U) [Mass/Vol] Negative Neg mg/dL [facility] URINE OB DIP B/Oon 4 Glucose Ql (U) Negative Neg mg/dL [facility] Protein.monoclonal (U) [Mass/Vol] trace Neg mg/dL [facility] URINE OB DIP B/Oon 4 Glucose Ql (U) Negative Neg mg/dL [facility] Protein.monoclonal (U) [Mass/Vol] Negative Neg mg/dL [facility] URINE OB DIP B/Oon 4 Glucose Ql (U) Negative Neg mg/dL [facility] Protein.monoclonal (U) [Mass/Vol] Negative Neg mg/dL [facility] URINE OB DIP B/Oon 4 Glucose Ql (U) Negative Neg mg/dL [facility] Protein.monoclonal (U) [Mass/Vol] Negative Neg mg/dL [facility] OBSTETRIC ULTRASOUND WHIon 1 04-19-2022 [facility] URINE OB DIP B/Oon 3 Glucose Ql (U) Negative Neg mg/dL [facility] Protein.monoclonal (U) [Mass/Vol] Negative Neg mg/dL [facility] OBSTETRIC ULTRASOUND WHIon 1 03-22-2022 [facility] URINE OB DIP B/Oon 3 Glucose Ql (U) Negative Neg mg/dL [facility] Protein.monoclonal (U) [Mass/Vol] Negative Neg mg/dL [facility] URINE OB DIP B/Oon 3 Glucose Ql (U) Negative Neg mg/dL [facility] Protein.monoclonal (U) [Mass/Vol] Negative Neg mg/dL [facility] Vital Signs Date Time Vital Sign Value Performing Clinician Facility 10-30-2024 08:31-0400 Body mass index (BMI) [Ratio] 23.77 kg/m2 Chuy Moore MD Work Phone: [facility] 10-30-2024 08:31-0400 Body weight 60.87 kg Chuy Moore MD Work Phone: [facility] 10-30-2024 08:31-0400 Diastolic blood pressure 60 mm[Hg] Chuy Moore MD Work Phone: [facility] 10-30-2024 08:31-0400 Systolic blood pressure 100 mm[Hg] Chuy Moore MD Work Phone: [facility] 10-16-2024 13:35-0400 Body mass index (BMI) [Ratio] 23.1 kg/m2 Marium Stevenson MD Work Phone: [facility] 10-16-2024 13:35-0400 Body weight 59.15 kg Marium Stevenson MD Work Phone: [facility] 10-16-2024 13:35-0400 Diastolic blood pressure 60 mm[Hg] Marium Stevenson MD Work Phone: [facility] 10-16-2024 13:35-0400 Systolic blood pressure 100 mm[Hg] Marium Stevenson MD Work Phone: [facility] 10-14-2024 01:11-0400 Diastolic blood pressure 65 mm[Hg] No Primary Care Physician [facility] 10-14-2024 01:11-0400 Heart rate 101 /min No Primary Care Physician [facility] 10-14-2024 01:11-0400 Systolic blood pressure 108 mm[Hg] No Primary Care Physician [facility] 10-14-2024 01:10-0400 Body temperature 98.7 [degF] No Primary Care Physician [facility] 10-14-2024 01:10-0400 Respiratory rate 16 /min No Primary Care Physician [facility] 10-14-2024 01:07-0400 Body height 160.02 cm No Primary Care Physician [facility] 10-14-2024 01:07-0400 Body mass index (BMI) [Ratio] 23.6 kg/m2 No Primary Care Physician [facility] 10-14-2024 01:07-0400 Body weight 60.32 kg No Primary Care Physician [facility] 10-10-2024 15:29-0400 Body temperature 97.6 [degF] No Primary Care Physician [facility] 10-10-2024 15:29-0400 Respiratory rate 16 /min No Primary Care Physician [facility] 10-10-2024 15:28-0400 Diastolic blood pressure 79 mm[Hg] No Primary Care Physician [facility] 10-10-2024 15:28-0400 Heart rate 103 /min No Primary Care Physician [facility] 10-10-2024 15:28-0400 Systolic blood pressure 121 mm[Hg] No Primary Care Physician [facility] 10-10-2024 15:21-0400 Body height 160.02 cm No Primary Care Physician [facility] 10-10-2024 15:21-0400 Body mass index (BMI) [Ratio] 23 kg/m2 No Primary Care Physician [facility] 10-10-2024 15:21-0400 Body weight 59 kg No Primary Care Physician [facility] 10-05-2024 09:50-0400 Body mass index (BMI) [Ratio] 22.85 kg/m2 Gina Kulkarni EXERCISER.CNM Work Phone: [facility] 10-05-2024 09:50-0400 Body weight 58.51 kg Gina Kulkarni EXERCISER.CNM Work Phone: [facility] 10-05-2024 09:50-0400 Diastolic blood pressure 60 mm[Hg] Gina Kulkarni EXERCISER.CNM Work Phone: [facility] 10-05-2024 09:50-0400 Systolic blood pressure 98 mm[Hg] Gina Kulkarni EXERCISER.CNM Work Phone: [facility] 09-17-2024 08:39-0400 Body mass index (BMI) [Ratio] 22.1 kg/m2 Crista Vasquez EXERCISER.TESTING MACHINE OPERATOR Work Phone: [facility] 09-17-2024 08:39-0400 Body temperature 96.91 [degF] Crista Moomaw EXERCISER.TESTING MACHINE OPERATOR Work Phone: [facility] 09-17-2024 08:39-0400 Body weight 56.6 kg Crista Moomaw EXERCISER.TESTING MACHINE OPERATOR Work Phone: [facility] 09-17-2024 08:39-0400 Diastolic blood pressure 62 mm[Hg] Crista Moomaw EXERCISER.TESTING MACHINE OPERATOR Work Phone: [facility] 09-17-2024 08:39-0400 Heart rate 94 /min Crista Moomaw EXERCISER.TESTING MACHINE OPERATOR Work Phone: [facility] 09-17-2024 08:39-0400 Respiratory rate 18 /min Crista Moomaw EXERCISER.TESTING MACHINE OPERATOR Work Phone: [facility] 09-17-2024 08:39-0400 SaO2% (BldA) [Mass fraction] 98 % Crista Moomaw EXERCISER.TESTING MACHINE OPERATOR Work Phone: [facility] 09-17-2024 08:39-0400 Systolic blood pressure 112 mm[Hg] Crista Moomaw EXERCISER.TESTING MACHINE OPERATOR Work Phone: [facility] 08-11-2024 13:44-0400 Body mass index (BMI) [Ratio] 22.32 kg/m2 Gina Plotts EXERCISER.CNM Work Phone: [facility] 08-11-2024 13:44-0400 Body weight 57.15 kg Gina Plotts EXERCISER.CNM Work Phone: [facility] 08-11-2024 13:44-0400 Diastolic blood pressure 64 mm[Hg] Gina Plotts EXERCISER.CNM Work Phone: [facility] 08-11-2024 13:44-0400 Systolic blood pressure 98 mm[Hg] Gina Plotts EXERCISER.CNM Work Phone: [facility] 07-12-2024 15:56-0400 Body mass index (BMI) [Ratio] 21.43 kg/m2 Paulina Chadwick EXERCISER.TESTING MACHINE OPERATOR Work Phone: [facility] 07-12-2024 15:56-0400 Body weight 54.88 kg Paulina Navarromacrina EXERCISER.TESTING MACHINE OPERATOR Work Phone: [facility] 07-12-2024 15:56-0400 Diastolic blood pressure 62 mm[Hg] Paulina Chadwick EXERCISER.TESTING MACHINE OPERATOR Work Phone: [facility] 07-12-2024 15:56-0400 Systolic blood pressure 100 mm[Hg] Paulina Chadwick EXERCISER.TESTING MACHINE OPERATOR Work Phone: [facility] 06-28-2024 08:36-0400 Body height 160 cm Gina Plotts EXERCISER.CNM Work Phone: [facility] 06-28-2024 08:36-0400 Body mass index (BMI) [Ratio] 21.19 kg/m2 Gina Plotts EXERCISER.CNM Work Phone: [facility] 06-28-2024 08:36-0400 Body weight 54.25 kg Gina Plotts EXERCISER.CNM Work Phone: [facility] 06-28-2024 08:36-0400 Diastolic blood pressure 68 mm[Hg] Gina Plotts EXERCISER.CNM Work Phone: [facility] 06-28-2024 08:36-0400 Systolic blood pressure 106 mm[Hg] Gina Plotts EXERCISER.CNM Work Phone: [facility] 04-05-2024 15:00-0500 Body mass index (BMI) [Ratio] 20.37 kg/m2 Diana Velazquez PA-C Work Phone: [facility] 04-05-2024 15:00-0500 Body temperature 98.1 [degF] Diana Velazquez PA-C Work Phone: [facility] 04-05-2024 15:00-0500 Body weight 52.16 kg Diana Velazquez PA-C Work Phone: [facility] 04-05-2024 15:00-0500 Heart rate 86 /min Diana Velazquez PA-C Work Phone: [facility] 04-05-2024 15:00-0500 Respiratory rate 18 /min Diana Velazquez PA-C Work Phone: [facility] 07-29-2023 08:45-0400 Body height 160 cm Paulinavicky Navarromacrina EXERCISER.TESTING MACHINE OPERATOR Work Phone: [facility] 07-29-2023 08:45-0400 Body mass index (BMI) [Ratio] 21.97 kg/m2 Paulina Ramonmacrina EXERCISER.TESTING MACHINE OPERATOR Work Phone: [facility] 07-29-2023 08:45-0400 Body weight 56.25 kg Paulina Navarromacrina EXERCISER.TESTING MACHINE OPERATOR Work Phone: [facility] 07-29-2023 08:45-0400 Diastolic blood pressure 64 mm[Hg] Paulina Navarromacrina EXERCISER.TESTING MACHINE OPERATOR Work Phone: [facility] 07-29-2023 08:45-0400 Systolic blood pressure 102 mm[Hg] Paulina Navarromacrina EXERCISER.TESTING MACHINE OPERATOR Work Phone: [facility] 06-18-2023 15:16-0400 Respiratory rate 16 /min [facility] 06-18-2023 11:54-0400 Body temperature 98.2 [degF] [facility] 06-18-2023 11:54-0400 Diastolic blood pressure 79 mm[Hg] [facility] 06-18-2023 11:54-0400 Heart rate 82 /min [facility] 06-18-2023 11:54-0400 SaO2% (BldA) [Mass fraction] 99 % [facility] 06-18-2023 11:54-0400 Systolic blood pressure 115 mm[Hg] [facility] 06-16-2023 19:30-0400 Body height 160.02 cm [facility] 06-16-2023 19:30-0400 Body mass index (BMI) [Percentile] Per age and sex 84.2 % [facility] 06-16-2023 19:30-0400 Body mass index (BMI) [Ratio] 26 kg/m2 [facility] 06-16-2023 19:30-0400 Body weight 66.67 kg [facility] 06-08-2023 11:16-0400 Body weight 65.77 kg Raisa Macias MD Work Phone: [facility] 06-08-2023 11:16-0400 Diastolic blood pressure 68 mm[Hg] Raisa Macias MD Work Phone: [facility] 06-08-2023 11:16-0400 Systolic blood pressure 112 mm[Hg] Raisa Macias MD Work Phone: [facility] 06-01-2023 11:39-0400 Body weight 65.23 kg Raisa Macias MD Work Phone: [facility] 06-01-2023 11:39-0400 Diastolic blood pressure 70 mm[Hg] Raisa Macias MD Work Phone: [facility] 06-01-2023 11:39-0400 Systolic blood pressure 110 mm[Hg] Raisa Macias MD Work Phone: [facility] 05-25-2023 13:31-0400 Body weight 64.95 kg Raisa Macias MD Work Phone: [facility] 05-25-2023 13:31-0400 Diastolic blood pressure 68 mm[Hg] Raisa Macias MD Work Phone: [facility] 05-25-2023 13:31-0400 Systolic blood pressure 98 mm[Hg] Raisa Macias MD Work Phone: [facility] 05-18-2023 10:04-0400 Body weight 64.41 kg Esme Jordan MD Work Phone: [facility] 05-18-2023 10:04-0400 Diastolic blood pressure 60 mm[Hg] Esme Jordan MD Work Phone: [facility] 05-18-2023 10:04-0400 Systolic blood pressure 108 mm[Hg] Esme Jordan MD Work Phone: [facility] 05-04-2023 09:49-0500 Body weight 63.32 kg Raisa Macias MD Work Phone: [facility] 05-04-2023 09:49-0500 Diastolic blood pressure 74 mm[Hg] Raisa Macias MD Work Phone: [facility] 05-04-2023 09:49-0500 Systolic blood pressure 120 mm[Hg] Raisa Macias MD Work Phone: [facility] 04-20-2023 09:32-0500 Body weight 63.05 kg Esme Jordan MD Work Phone: [facility] 04-20-2023 09:32-0500 Diastolic blood pressure 64 mm[Hg] Esme Jordan MD Work Phone: [facility] 04-20-2023 09:32-0500 Systolic blood pressure 110 mm[Hg] Esme Jordan MD Work Phone: [facility] 02-16-2023 14:40-0500 Body weight 58.06 kg Siomara Pool EXERCISER.TESTING MACHINE OPERATOR Work Phone: [facility] 02-16-2023 14:40-0500 Diastolic blood pressure 66 mm[Hg] Siomara [place] EXERCISER.TESTING MACHINE OPERATOR Work Phone: [facility] 02-16-2023 14:40-0500 Systolic blood pressure 98 mm[Hg] Siomara Pool EXERCISER.TESTING MACHINE OPERATOR Work Phone: [facility] 01-20-2023 14:41-0500 Body weight 55.79 kg Esme Jordan MD Work Phone: [facility] 01-20-2023 14:41-0500 Diastolic blood pressure 72 mm[Hg] Esme Jordan MD Work Phone: [facility] 01-20-2023 14:41-0500 Systolic blood pressure 106 mm[Hg] Esme Jordan MD Work Phone: [facility] 12-22-2022 14:43-0400 Body weight 54.61 kg Raisa Macias MD Work Phone: [facility] 12-22-2022 14:43-0400 Diastolic blood pressure 70 mm[Hg] Raisa Macias MD Work Phone: [facility] 12-22-2022 14:43-0400 Systolic blood pressure 110 mm[Hg] Raisa Macias MD Work Phone: [facility] 10-27-2021 08:51-0400 Body weight 52.8 kg Siomara Pool EXERCISER.TESTING MACHINE OPERATOR Work Phone: [facility] 10-27-2021 08:51-0400 Diastolic blood pressure 62 mm[Hg] Siomara [place] EXERCISER.TESTING MACHINE OPERATOR Work Phone: [facility] 10-27-2021 08:51-0400 Systolic blood pressure 82 mm[Hg] Siomara Pool EXERCISER.TESTING MACHINE OPERATOR Work Phone: [facility] 07-01-2021 12:51-0400 Body weight 51.53 kg Siomara [place] EXERCISER.TESTING MACHINE OPERATOR Work Phone: [facility] 07-01-2021 12:51-0400 Diastolic blood pressure 60 mm[Hg] Siomara [place] EXERCISER.TESTING MACHINE OPERATOR Work Phone: [facility] 07-01-2021 12:51-0400 Systolic blood pressure 100 mm[Hg] Siomara [place] EXERCISER.TESTING MACHINE OPERATOR Work Phone: [facility] Encounters Encounter Date Encounter Type Care Provider Facility Start: 10-30-2024 End: 10-30-2024 Patient encounter procedure Chuy Moore MD Work Phone: OB/Gynecology Comment on above: Limited car e in third trimester (HCC) (Primary Dx); 34 weeks gestation of (HCC); Supervision of high risk in third trimester (HCC) Start: 10-30-2024 End: 10-30-2024 ambulatory [facility] Facility:[facility] Start: 10-16-2024 End: 10-16-2024 Office outpatient visit 15 minutes Marium Stevenson MD Work Phone: OB/Gynecology Comment on above: 32 weeks gestation o f (HCC) (Primary Dx); Limited care in third trimester (HCC); Supervision of high risk in third trimester (HCC) Start: 10-16-2024 End: 10-16-2024 Patient encounter procedure Whi Tech 1 [employer] [facility] Comment on above: Suspected problem wi th growth not found (Primary Dx); Late care (HCC); Limited care in third trimester (HCC); 32 weeks gestation of (HCC); Supervision of high risk in third trimester (HCC) Start: 10-16-2024 End: 10-16-2024 ambulatory MARIUM STEVENSON Facility:[facility] Start: 10-14-2024 End: 10-14-2024 ambulatory No Primary Care Physician [facility] Start: 10-14-2024 End: 10-14-2024 Patient encounter procedure Radha Manrique CNM -[facility] Work Phone: Start: 10-10-2024 End: 10-10-2024 ambulatory No Primary Care Physician -[facility] [place] [facility] Start: 10-10-2024 End: 10-10-[address] Esme Jordan MD -[facility] Work Phone: Start: 10-06-2024 End: 10-06-2024 ambulatory Gina Kulkarni EXERCISER.CNM Work Phone: OB/Gynecology Comment on above: Breast pump Start: 10-06-2024 End: 10-06-2024 Telephone encounter Nurse Heel Seater [facility] Work Phone: Obstetrics/Gynecology Comment on above: PRAF Start: 10-05-2024 End: 10-05-2024 Patient encounter procedure Gina Kulkarni EXERCISER.CNM Work Phone: OB/Gynecology Comment on above: Supervision of high risk in third trimester (HCC) (Primary Dx); Late care (HCC); Screening for diabetes mellitus; Limited care in third trimester (HCC); 31 weeks gestation of (HCC) Start: 10-05-2024 End: 10-05-2024 ambulatory GINA KULKARNI Facility:[facility] Start: 10-02-2024 End: 10-24-2024 Telephone encounter Raisa Macias MD Work Phone: OB/Gynecology Comment on above: breast pump Start: 09-17-2024 End: 09-17-2024 ambulatory CRISTA SOTOOMAW Facility:[facility] Start: 09-17-2024 End: 09-17-2024 Patient encounter procedure Crista Vasquez EXERCISER.TESTING MACHINE OPERATOR Work Phone: [facility] Comment on above: Diarrhea, unspecifie d type (Primary Dx) Start: 08-14-2024 End: 08-14-2024 Telephone encounter Nurse Heel Seater Joanne Joyce Work Phone: Obstetrics/Gynecology Comment on above: PRAF Start: 08-11-2024 End: 08-11-2024 Patient encounter procedure Gina Kulkarni APRN.CNM Work Phone: OB/Gynecology Comment on above: Screening for diabet es mellitus (Primary Dx); 23 weeks gestation of (HCC); Late care (HCC); Encounter for supervision of high risk in second trimester, antepartum (HCC); Short interval between pregnancies affecting in second trimester, antepartum (HCC) Start: 08-11-2024 End: 08-11-2024 ambulatory GINA KULKARNI Facility:[facility] Start: 08-09-2024 End: 08-10-2024 ambulatory Gina Kulkarni APRNLANDON Work Phone: OB/Gynecology Comment on above: Reschedule appt Start: 07-12-2024 End: 07-12-2024 Patient encounter procedure Whi Tech 1 Heel [employer] [facility] Comment on above: Encounter for anatomic survey (HCC) (Primary Dx); 19 weeks gestation of (HCC) Encounter for superv ision of high risk in second trimester, antepartum (HCC) (Primary Dx); 19 weeks gestation of (HCC); Short interval between pregnancies affecting in second trimester, antepartum (HCC); Rubella non-immune status, antepartum (HCC) Start: 07-12-2024 End: 07-12-2024 ambulatory GINA KULKARNI Facility:[facility] Start: 06-28-2024 End: 08-28-2024 Follow-up encounter Gina Kulkarni APRCHIDI Work Phone: OB/Gynecology Start: 06-28-2024 End: 06-28-2024 Patient encounter procedure Gina Kulkarni EXERCISER.CNM Work Phone: OB/Gynecology Comment on above: with fetus of unknown gestational age (HCC) (Primary Dx); 17 weeks gestation of (HCC); Short interval between pregnancies affecting in second trimester, antepartum (HCC); Late care (HCC); Encounter for supervision of high risk in second trimester, antepartum (HCC); Alcohol consumption during in first trimester (HCC) Start: 06-28-2024 End: 06-28-2024 ambulatory GINA KULKARNI Facility:[facility] Start: 04-14-2024 End: 04-14-2024 Patient encounter procedure Donald De La Torre PA-C Work Phone: Orthopaedics Start: 04-13-2024 End: 04-14-2024 ambulatory Diana Velazquez PA-C Work Phone: [facility] [place] Start: 04-13-2024 End: 04-14-2024 Follow-up encounter Diana Velazquez PA-C Work Phone: [facility] [place] Comment on above: Visit follow up Start: 04-07-2024 End: 04-07-2024 Telephone encounter Diana Velazquez PA-C Work Phone: [facility] [place] Comment on above: Results Start: 04-05-2024 End: 04-05-2024 Subsequent hospital visit by physician Timothy [facility] [place] Work Phone: Radiology Comment on above: Bony abnormality [Q7 9.9] Start: 04-05-2024 End: 04-05-2024 ambulatory DIANA VELAZQUEZ Facility:[facility] Start: 04-05-2024 End: 04-05-2024 Patient encounter procedure Diana Doughertyut PA-C Work Phone: [facility] Comment on above: Bony abnormality (Pr imary Dx) Start: 03-16-2024 End: 03-16-2024 Telephone encounter Siomara Lanza APRN.CNP Work Phone: OB/Gynecology Comment on above: Results Start: 03-15-2024 End: 03-15-2024 ambulatory SIOMARA POOL Facility:[facility] Start: 03-13-2024 End: 03-14-2024 ambulatory Siomara [place] EXERCISER.TESTING MACHINE OPERATOR Work Phone: OB/Gynecology Comment on above: Using the bathroom Start: 12-01-2023 End: 12-01-2023 ambulatory No Primary Care Physician Facility:[facility] Start: 09-29-2023 Telephone encounter Raisa messina MD Work Phone: OB/Gynecology Comment on above: Breast Pump Start: 09-05-2023 ambulatory Raisa Mooney Work Phone: OB/Gynecology Comment on above: medications to take for a cold when Start: 09-02-2023 Telephone encounter Raisa messina MD Work Phone: OB/Gynecology Comment on above: Orders Start: 07-29-2023 End: 07-29-2023 Patient encounter procedure Paulina Chadwick EXERCISER.TESTING MACHINE OPERATOR Work Phone: OB/Gynecology Comment on above: care and examination (Primary Dx); Abnormal glucose affecting ; Constipation, unspecified constipation type; Sacral mass Start: 06-17-2023 ambulatory Marium islas MD Work Phone: OB/Gynecology Comment on above: Ob Delivery Note Start: 06-16-2023 End: 06-18-2023 Evaluation and management of inpatient [facility] Work Phone: Start: 06-08-2023 End: 06-08-2023 Patient encounter procedure Raisa Macias MD Work Phone: OB/Gynecology Comment on above: Supervision of high risk in third trimester (Primary Dx); 39 weeks gestation of ; Abnormal glucose tolerance in ; Anemia complicating , third trimester Start: 06-01-2023 End: 06-01-2023 Patient encounter procedure Raisa Macias MD Work Phone: OB/Gynecology Comment on above: 38 weeks gestation o f (Primary Dx); Supervision of high risk in third trimester Start: 05-31-2023 ambulatory [facility] Comment on above: Population Health Na vigation Outreach (Ob/peds) Start: 05-25-2023 End: 05-25-2023 Patient encounter procedure Raisa Macias MD Work Phone: OB/Gynecology Comment on above: Supervision of high risk in third trimester (Primary Dx); Abnormal glucose tolerance in ; 37 weeks gestation of Start: 05-18-2023 End: 05-18-2023 Patient encounter procedure Esme Jordan MD Work Phone: OB/Gynecology Comment on above: 36 weeks gestation o f (Primary Dx); Supervision of high risk in third trimester Start: 05-04-2023 End: 05-04-2023 Patient encounter procedure Raisa Macias MD Work Phone: OB/Gynecology Comment on above: 34 weeks gestation o f (Primary Dx); Abnormal glucose tolerance in ; Supervision of high risk in third trimester Start: 04-30-2023 ambulatory Raisa Mooney Work Phone: OB/Gynecology Comment on above: Question Start: 04-20-2023 ambulatory Siomara [place] EXERCISER.TESTING MACHINE OPERATOR Work Phone: OB/Gynecology Comment on above: Glucose Test Start: 04-20-2023 End: 04-20-2023 Patient encounter procedure Esme Jordan MD Work Phone: OB/Gynecology Comment on above: Supervision of high risk in third trimester (Primary Dx); Abnormal glucose in , antepartum; 32 weeks gestation of Start: 04-10-2023 ambulatory Raisa Mooney Work Phone: OB/Gynecology Comment on above: Glucose Test Start: 02-16-2023 End: 02-16-2023 Patient encounter procedure Siomara [place] EXERCISER.TESTING MACHINE OPERATOR Work Phone: OB/Gynecology Comment on above: Supervision of high risk in second trimester (Primary Dx); 23 weeks gestation of Encounter for follow -up ultrasound of anatomy (Primary Dx); 23 weeks gestation of Start: 01-26-2023 Telephone encounter Raisa messina MD Work Phone: OB/Gynecology Comment on above: Lab Orders Start: 01-21-2023 Telephone encounter Raisa messina MD Work Phone: OB/Gynecology Start: 01-20-2023 End: 01-20-2023 Patient encounter procedure Esme Jordan MD Work Phone: OB/Gynecology Comment on above: 19 weeks gestation o f (Primary Dx); Encounter for supervision of normal first in second trimester Encounter for anatomic survey (Primary Dx); Encounter for care in first trimester of first ; 19 weeks gestation of Start: 12-22-2022 End: 12-22-2022 Patient encounter procedure Raisa Macias MD Work Phone: OB/Gynecology Comment on above: 15 weeks gestation o f (Primary Dx); Encounter for care in first trimester of first Start: 12-08-2022 Telephone encounter Siomara Metc nhoemi EXERCISER.TESTING MACHINE OPERATOR Work Phone: OB/Gynecology Comment on above: Orders Start: 11-26-2022 Telephone encounter Siomara Metc custodial EXERCISER.TESTING MACHINE OPERATOR Work Phone: OB/Gynecology Comment on above: Results Start: 10-27-2021 End: 10-27-2021 Patient encounter procedure Siomara [place] EXERCISER.TESTING MACHINE OPERATOR Work Phone: OB/Gynecology Comment on above: Encounter for survei llance of contraceptive pills (Primary Dx) Start: 10-24-2021 Refill Siomara Pool EXERCISER.TESTING MACHINE OPERATOR Work Phone: OB/Gynecology Comment on above: Refill Request Start: 07-01-2021 End: 07-01-2021 Patient encounter procedure Siomara Pool EXERCISER.TESTING MACHINE OPERATOR Work Phone: OB/Gynecology Comment on above: Encounter for survei llance of contraceptive pills (Primary Dx) Procedures Date Procedure Procedure Detail Performing Clinician Start: 10-30-2024 Urnls dip stick/tabl et rgnt non-auto w/o micrscp Chuy Moore MD Work Phone: Start: 10-16-2024 Us preg uterus after 1st trimest 1/ gestation Gina Kulkarni EXERCISER.CNM Work Phone: Start: 10-10-2024 Urnls dip stick/tabl et reagent auto microscopy No Primary Care Physician Start: 10-10-2024 Urine culture No Primar y Care Physician Start: 10-05-2024 Urnls dip stick/tabl et rgnt non-auto w/o micrscp Gina Kulkarni EXERCISER.CNM Work Phone: Start: 07-12-2024 Us preg uterus after 1st trimest 1/ gestation Gina Kulkarni EXERCISER.CNM Work Phone: Start: 06-28-2024 Antibody screen CURTIS KULKARNI Comment on above: Order Comment: Speci men Type: BLOOD SPECIMENOrdering Facility: [facility] Address: [address] [place] [address] Performed By: #### T SPN ####CC MAIN BLOOD BANKCLIA [id number] [place] [address] [place] Start: 06-28-2024 BACTERIAL VAGINOSIS NAAT Gina Kulkarni EXERCISER.CNM Work Phone: Start: 06-28-2024 Iadna chlamydia trac homatis amplified probe tq Gina Kulkarni EXERCISER.CNM Work Phone: Start: 06-28-2024 Us uterus l imited 1/> fetuses Gina Hinojosairina EXERCISER.CNM Work Phone: Start: 06-08-2023 URINE OB DIP B/O Raisa Macias MD Work Phone: Start: 06-01-2023 URINE OB DIP B/O Raisa Macias MD Work Phone: Start: 05-25-2023 URINE OB DIP B/O Raisa Macias MD Work Phone: Start: 05-18-2023 URINE OB DIP B/O Hao Jordan MD Work Phone: Start: 05-04-2023 URINE OB DIP B/O Raisa Macias MD Work Phone: Start: 04-20-2023 URINE OB DIP B/O Hao Jordan MD Work Phone: Start: 02-16-2023 URINE OB DIP B/O Bita [facility] Burton MCARTHURM Work Phone: Start: 02-16-2023 Us preg uterus after 1st trimest 03/08 gestation Raisa Macias MD Work Phone: Start: 01-20-2023 URINE OB DIP B/O Hao Jordan MD Work Phone: Start: 01-20-2023 Us preg uterus after 1st trimest 03/08 gestation Raisa Macias MD Work Phone: Start: 12-22-2022 URINE OB DIP B/O Raisa Macias MD Work Phone: Plan of Treatment Date Care Activity Detail Author Start: 11-06-2026 Urine microalbumin profile DTaP,Tdap,Td Vaccine (7 - Td or Tdap) [facility] Start: 06-28-2025 GC (Gonorrhea) Scree meng (18-24) GC (Gonorrhea) Screening (18-24) [facility] Start: 06-28-2025 Screening for Chlamy grace trachomatis Chlamydia Screening (18-) [facility] Start: 11-09-2024 End: 11-09-2024 Patient encounter procedure 11/09/2024 4:30 PM EDT Routine Office Visit OB/Gynecology [address] [place] [address] Chuy Moore MD [address] [place] [id number] OB OB/Gynecology Comment on above: OB Start: 11-06-2024 Influenza vaccination [facility] Start: 11-06-2024 RSV Vaccine (1 - Ris k 1-dose series) RSV Vaccine (1 - Risk 1-dose series) [facility] Start: 10-30-2024 End: 10-30-2024 Patient encounter procedure 10/30/2024 8:30 AM EDT Routine Office Visit OB/Gynecology [address] [place] [address] Chuy Moore MD [address] [place] [address] OB OB/Gynecology Comment on above: OB Start: 10-16-2024 End: 10-16-2024 Patient encounter procedure Maternal Medicine Comment on above: Growth OB Start: 10-14-2024 Nonstress test [facility] Start: 10-14-[address] [facility] Start: 10-14-2024 Vital signs measurements [facility] Start: 10-14-2024 [facility] Start: 10-14-2024 Patient discharge [facility] Start: 10-10-2024 End: 10-10-2024 [facility] Start: 10-10-2024 Nonstress test [facility] Start: 10-10-[address] [facility] Start: 10-10-2024 Vital signs measurements [facility] Start: 10-10-2024 Patient discharge [facility] Start: 10-10-2024 [facility] Start: 09-11-2024 End: 09-11-2024 Patient encounter procedure 09/11/2024 1:50 PM EDT Routine Office Visit OB/Gynecology [address] [place] [address] Marium Stevenson MD [address] [place] [address] Glucose/OB OB/Gynecology Comment on above: Glucose/OB Start: 09-11-2024 End: 09-11-2024 ambulatory 09/11/2024 1:30 PM EDT Results Only [place] [facility] [address] [place] [address] Glucose [facility] Comment on above: Glucose Start: 08-11-2024 End: 11-10-2024 ANEMIA REFLEX PANEL ANEMIA REFLEX PANEL Lab Routine Screening for diabetes mellitus Encounter for supervision of high risk in second trimester, antepartum (HCC) Short interval between pregnancies affecting in second trimester, antepartum (HCC) Late care (HCC) Expected: 08/11/2024, Expires: 11/10/2024 [facility] Comment on above: Expected: 08/11/2024 , Expires: [...] gestation of (HCC) Expected: 08/11/2024, Expires: 08/11/2025 [facility] Work Phone: Comment on above: Expected: 08/11/2024 , Expires: 08/11/2025 Start: 08-11-2024 End: 08-11-2024 Patient encounter procedure 08/11/2024 2:00 PM EDT Routine Office Visit OB/Gynecology [address] [place] [address] Gina Kulkarni APRN.[facility] [address] [place] [address] OB OB/Gynecology Comment on above: OB Start: 08-11-2024 End: 08-11-2025 SYPHILIS TREPONEMAL W/REFLEX SYPHILIS TREPONEMAL W/REFLEX Lab Routine Screening for diabetes mellitus Encounter for supervision of high risk in second trimester, antepartum (HCC) Short interval between pregnancies affecting in second trimester, antepartum (HCC) Late care (HCC) Expected: 08/11/2024, Expires: 08/11/2025 [facility] Comment on above: Expected: 08/11/2024 , Expires: 08/11/2025 Start: 08-10-2024 End: 08-10-2024 Patient encounter procedure 08/10/2024 10:30 AM EDT Routine Office Visit OB/Gynecology [address] [place] [address] Gina Kulkarni APRN.CNM [address] [place] [address] Est New OB OB/Gynecology Comment on above: Est New OB Start: 07-28-2024 End: 07-28-2024 Patient encounter procedure 07/28/2024 8:15 AM EDT Office Visit OB/Gynecology [address] [place] [address] Paulina Chadwick EXERCISER.TESTING MACHINE OPERATOR [address] [place] [address] Annual OB/Gynecology Comment on above: Annual Start: 07-26-2024 End: 07-26-2024 Patient encounter procedure 07/26/2024 10:30 AM EDT Routine Office Visit OB/Gynecology [address] [place] [address] Radha Manrique APRN.CNM [address] [place] [address] , OB/Gynecology Comment on above: , Start: 07-12-2024 End: 07-12-2024 Patient encounter procedure Maternal Medicine Comment on above: Anatomy ob Start: 06-28-2024 End: 09-27-2024 ANEMIA REFLEX PANEL [facility] Work Phone: Comment on above: Expected: 06/28/2024 , Expires: 09/27/2024 Start: 06-28-2024 End: 09-27-2024 Chromosome 21 trisomy [Presence] in Blood or Tissue by Cytogenetics [facility] Comment on above: Expected: 06/28/2024 , Expires: 09/27/2024 Start: 06-28-2024 End: 06-28-2025 OBSTETRIC ULTRASOUND WHI OBSTETRIC ULTRASOUND WHI Anc Imaging Routine with fetus of unknown gestational age (HCC) Expected: 06/28/2024, Expires: 06/28/2025 [facility] Comment on above: Expected: 06/28/2024 , Expires: 06/28/2025 Start: 03-15-2024 End: 03-15-2024 ambulatory 03/15/2024 12:00 PM EST Results Only [place] [facility] Laboratory [address] [place] [address] [place] [facility] Start: 03-14-2024 End: 06-13-2024 Bacteria identified in Urine by Culture URINE CULTURE Microbiology Routine UTI symptoms Expected: 03/14/2024, Expires: 06/13/2024 [facility] Work Phone: Comment on above: Expected: 03/14/2024 , Expires: 06/13/2024 Start: 03-14-2024 End: 06-13-2024 Urinalysis complete panel - Urine URINALYSIS, WITH MICROSCOPIC Lab Routine UTI symptoms Expected: 03/14/2024, Expires: 06/13/2024 [facility] Comment on above: Expected: 03/14/2024 , Expires: 06/13/2024 Start: 11-25-2023 Chlamydia Screening (18-24) Chlamydia Screening (18-24) [facility] Start: 11-25-2023 GC (Gonorrhea) Scree meng (18-24) GC (Gonorrhea) Screening (18-24) [facility] Start: 11-25-2023 Screening for Chlamy grace trachomatis Chlamydia Screening (18-24) [facility] Start: 11-07-2023 Covid-19 Vaccine ( season) Covid-19 Vaccine ( season) [facility] Start: 11-07-2023 Influenza vaccination [facility] Start: 09-27-2023 End: 12-27-2023 Hemoglobin A1c in Blood HEMOGLOBIN A1C Lab Routine Abnormal glucose affecting Expected: 09/27/2023, Expires: 12/27/2023 [facility] Work Phone: Comment on above: Expected: 09/27/2023 , Expires: 12/27/2023 Start: 06-18-2023 Patient discharge [facility] Start: 06-17-2023 Administration of medication [facility] Start: 06-17-2023 Application of ice collar, cap or bag [facility] Start: 06-17-2023 Catheterization of vein [facility] Start: 06-17-2023 Introduction of urin ivet catheter [facility] Start: 06-17-2023 Measuring intake and output [facility] Start: 06-17-2023 Notification of physician [facility] Start: 06-17-2023 Procedure discontinued [facility] Start: 06-17-2023 Provision of activit y privileges [facility] Start: 06-17-2023 Vital signs measurements [facility] Start: 06-17-2023 End: 06-17-2023 [facility] Start: 06-17-2023 Documentation procedure [facility] Start: 06-17-2023 Consultation [facility] Start: 06-16-2023 Admission procedure [facility] Start: 06-16-[address] [facility] Start: 03-08-2023 Behavioral Health Screening Behavioral Health Screening [facility] Start: 03-08-2023 Depression Assessment Depression Ass essment [facility] Start: 02-16-2023 End: 05-18-2023 CBC W Auto Differential panel - Blood CBC + DIFF Lab Routine Supervision of high risk in second trimester 23 weeks gestation of Expected: 02/16/2023, Expires: 05/18/2023 [facility] Work Phone: Comment on above: Expected: 02/16/2023 , Expires: 05/18/2023 Start: 02-16-2023 End: 05-18-2023 GEST GLUC SCREEN, 1-HR, 50 GM, NON-FASTING GEST GLUC SCREEN, 1-HR, 50 GM, NON-FASTING Lab Routine Supervision of high risk in second trimester 23 weeks gestation of Expected: 02/16/2023, Expires: 05/18/2023 [facility] Work Phone: Comment on above: Expected: 02/16/2023 , Expires: 05/18/2023 Start: 02-16-2023 End: 05-18-2023 SYPHILIS TOTAL W/REFLEX SYPHILIS TOTAL W/REFLEX Lab Routine Supervision of high risk in second trimester 23 weeks gestation of Expected: 02/16/2023, Expires: 05/18/2023 [facility] Work Phone: Comment on above: Expected: 02/16/2023 , Expires: 05/18/2023 Start: 01-21-2023 End: 01-22-2024 OBSTETRIC ULTRASOUND WHI OBSTETRIC ULTRASOUND WHI Anc Imaging Routine Supervision of high risk in second trimester Expected: 01/21/2023, Expires: 01/22/2024 [facility] Work Phone: Comment on above: Expected: 01/21/2023 , Expires: 01/22/2024 Start: 12-22-2022 End: 12-23-2023 OBSTETRIC ULTRASOUND WHI OBSTETRIC ULTRASOUND WHI Anc Imaging Routine 15 weeks gestation of Encounter for care in first trimester of first Expected: 12/22/2022, Expires: 12/23/2023 [facility] Work Phone: Comment on above: Expected: 12/22/2022 , Expires: 12/23/2023 Start: 12-08-2022 End: 02-07-2023 SEQUENTIAL SCN FIRST TRIMESTER [facility] Work Phone: Comment on above: Expected: 12/08/2022 , Expires: 02/07/2023 Start: 12-08-2022 End: 02-07-2023 SEQUENTIAL SCN SECOND TRIM SEQUENTIAL SCN SECOND TRIM Lab Routine Nuchal translucency of fetus on ultrasound Expected: 12/08/2022, Expires: 02/07/2023 [facility] Work Phone: Comment on above: Expected: 12/08/2022 , Expires: 02/07/2023 Start: 11-06-2022 Covid-19 Vaccine () Covid-19 Vaccine () [facility] Start: 11-06-2022 Influenza vaccination Influenza Vacc ine (#1) [facility] Start: 03-08-2022 Depression Assessment Depression Ass essment [facility] Start: 2022 Anxiety Screening Anxiety Screening [facility] Start: 2022 Depression Screening Depression Scre ening [facility] Start: 2022 Hepatitis C Screening Hepatitis C Dc wes [facility] Start: 2022 HIV Screening HIV Screening [facility] Start: 11-06-2021 Influenza vaccination [facility] Start: 2020 Meningococcal B Vacc ine (1 of 2 - Standard) Meningococcal B Vaccine (1 of 2 - Standard) [facility] Start: 2020 Meningococcal B Vacc ine: Consider Based On Risk (1 of 2 - Patient Seeks Protection) Meningococcal B Vaccine: Consider Based On Risk (1 of 2 - Patient Seeks Protection) [facility] Start: 2020 MENINGOCOCCAL CONJUG ATE (1 - 2-dose series) MENINGOCOCCAL CONJUGATE (1 - 2-dose series) [facility] Start: 2020 Meningococcal Conjug ate Vaccine (1 - 2-dose series) Meningococcal Conjugate Vaccine (1 - 2-dose series) [facility] Start: 2020 Meningococcal Conjug ate Vaccine (2 - 2-dose series) Meningococcal Conjugate Vaccine (2 - 2-dose series) [facility] Start: 2019 CHLAMYDIA SCREENING (<18) CHLA MYDIA SCREENING (<18) [facility] Start: 2019 GC (GONORRHEA) SCREE MENG (<18) GC (GONORRHEA) SCREENING (<18) [facility] Start: 2018 PEDS TO ADULT TRANSI TION ANNUAL ASSESSMENT PEDS TO ADULT TRANSITION ANNUAL ASSESSMENT [facility] Start: 05-06-2017 HPV Vaccine (2 - 2-d ose series) HPV Vaccine (2 - 2-dose series) [facility] Start: 2016 Adult depression screening assessment DEPRESSION SCREENING [facility] Start: 2016 PEDS TO ADULT TRANSI TION INITIAL DISCUSSION PEDS TO ADULT TRANSITION INITIAL DISCUSSION [facility] Start: 2015 HPV VACCINE (1 - 2-d ose series) HPV VACCINE (1 - 2-dose series) [facility] Start: 2015 Urine microalbumin profile [facility] Start: 2014 MENINGOCOCCAL B: Con level glass vial filler based on risk (1 of 2 - Risk Bexsero 2-dose series) MENINGOCOCCAL B: Consider based on risk (1 of 2 - Risk Bexsero 2-dose series) [facility] Start: 2013 HPV Vaccine (1 - 2-d ose series) HPV Vaccine (1 - 2-dose series) [facility] Start: 2009 COVID-19 VACCINE (1) COVID-19 VACCIN E (1) [facility] Start: 01-23-2009 VARICELLA (2 of 2 - 2-dose childhood series) VARICELLA (2 of 2 - 2-dose childhood series) [facility] Start: 2004 COVID-19 VACCINE (#1) COVID-19 VACCI NE (#1) [facility] Bacteria identified in Urine by Culture BACTERIAL CULTURE, URINE Microbiology Routine with fetus of unknown gestational age (HCC) 06/28/2024 9:18 AM EDT [facility] Erythrocyte mean corpuscular volume determination [facility] Fibronectin. [Mass/volume] in Vaginal fluid [facility] Hematocrit [Volume Fraction] of Blood [facility] Hemoglobin [Mass/vol ume] in Blood [facility] Leukocytes [#/volume ] in Blood [facility] Mean corpuscular hemoglobin concentration determination [facility] Mean corpuscular hemoglobin determination [facility] Neutrophil count [facility] Neutrophil percent differential count [facility] End: 04-03-2025 OBSTETRIC ULTRASOUND WHI OBSTETRIC ULTRASOUND I Anc Imaging Routine Late care ([facility]) Limited care in third trimester ([facility]) 31 weeks gestation of ([facility]) Supervision of high risk in third trimester ([facility]) Once per month for 5 Occurrences starting 10/05/2024 until 04/03/2025 [facility] Work Phone: Comment on above: Once per month for 5 Occurrences starting 10/05/2024 until 04/03/2025 Patient Education [facility] Work Phone: Patient referral [facility] Work Phone: Platelets [#/volume] in Blood [facility] Red blood cell count [facility] Red cell distributio n width determination [facility] ROUTINE, GR OUP B STREP PCR ROUTINE, GROUP B STREP PCR Microbiology Routine 36 weeks gestation of 05/18/2023 10:31 AM EDT [facility] Work Phone: Urine culture [facility] End: 05-14-2025 XR Lumbar spine 3 Views XR LUMBAR GENERAL 3V AP/LAT/L5-S1 Radiology Routine Bony abnormality 1 Occurrences starting 04/14/2024 until 05/14/2025 [facility] Work Phone: Comment on above: 1 Occurrences starti ng 04/14/2024 until 05/14/2025 XR Sacrum and Coccyx 3 Views XR SACRUM/COCCYX 3V AP/LAT Radiology Routine Bony abnormality 04/05/2024 3:58 PM EST [facility] Work Phone: [facility] Immunizations Immunization Date Immunization Notes Care Provider Aisha carpenter 11-06-2016 Human Papillomavirus 9-valent vaccine i [facility] 10-31-2008 diphtheria, tetanus toxoids and acellular pertussis vaccine Siomara Pool EXERCISER.TESTING MACHINE OPERATOR Work Phone: [facility] Work Phone: 10-31-2008 hepatitis A vaccine, unspecified formulation Siomara Pool EXERCISER.[facility] Work Phone: [facility] Work Phone: 10-31-2008 measles, mumps and rubella virus vaccine Siomara Pool EXERCISER.TESTING MACHINE OPERATOR Work Phone: [facility] Work Phone: 10-31-2008 poliovirus vaccine, inactivated Siomara [place] EXERCISER.TESTING MACHINE OPERATOR Work Phone: [facility] Work Phone: 10-31-2008 varicella virus vaccine Red e Pool EXERCISER.TESTING MACHINE OPERATOR Work Phone: [facility] Work Phone: 08-03-2007 hepatitis A vaccine, unspecified formulation Siomara Pool EXERCISER.TESTING MACHINE OPERATOR Work Phone: [facility] Work Phone: 06-23-2005 diphtheria, tetanus toxoids and acellular pertussis vaccine Siomara Pool EXERCISER.TESTING MACHINE OPERATOR Work Phone: [facility] Work Phone: 06-23-2005 haemophilus influenz ae type b vaccine, HbOC conjugate Siomara [place] EXERCISER.TESTING MACHINE OPERATOR Work Phone: [facility] Work Phone: 06-23-2005 pneumococcal conjuga te vaccine, 7 valent Siomara Pool EXERCISER.TESTING MACHINE OPERATOR Work Phone: [facility] Work Phone: 03-25-2005 hepatitis B vaccine, pediatric or pediatric/adolescent dosage Siomara Pool EXERCISER.[facility] Work Phone: [facility] Work Phone: 03-25-2005 varicella virus vaccine Red e Pool EXERCISER.[facility] Work Phone: [facility] Work Phone: 03-24-2005 measles, mumps and rubella virus vaccine Siomara [place] EXERCISER.TESTING MACHINE OPERATOR Work Phone: [facility] Work Phone: 2004 diphtheria, tetanus toxoids and acellular pertussis vaccine Siomara [place] EXERCISER.[facility] Work Phone: [facility] Work Phone: 2004 haemophilus influenz ae type b vaccine, HbOC conjugate Siomara Pool EXERCISER.TESTING MACHINE OPERATOR Work Phone: [facility] Work Phone: 2004 pneumococcal conjuga te vaccine, 7 valent Siomara Pool EXERCISER.TESTING MACHINE OPERATOR Work Phone: [facility] Work Phone: 2004 poliovirus vaccine, inactivated Siomara Pool EXERCISER.TESTING MACHINE OPERATOR Work Phone: [facility] Work Phone: 2004 diphtheria, tetanus toxoids and acellular pertussis vaccine Siomara [place] EXERCISER.TESTING MACHINE OPERATOR Work Phone: [facility] Work Phone: 2004 haemophilus influenz ae type b vaccine, HbOC conjugate Siomara [place] EXERCISER.[facility] Work Phone: [facility] Work Phone: 2004 pneumococcal conjuga te vaccine, 7 valent Siomara [place] EXERCISER.[facility] Work Phone: [facility] Work Phone: 2004 poliovirus vaccine, inactivated Siomara Pool EXERCISER.[facility] Work Phone: [facility] Work Phone: 2004 diphtheria, tetanus toxoids and acellular pertussis vaccine Siomara Pool EXERCISER.[facility] Work Phone: [facility] Work Phone: 2004 haemophilus influenz ae type b vaccine, HbOC conjugate Siomara Polo EXERCISER.[facility] Work Phone: [facility] Work Phone: 2004 hepatitis B vaccine, pediatric or pediatric/adolescent dosage Siomara [place] EXERCISER.[facility] Work Phone: [facility] Work Phone: 2004 pneumococcal conjuga te vaccine, 7 valent Siomara [place] EXERCISER.[facility] Work Phone: [facility] Work Phone: 2004 poliovirus vaccine, inactivated Siomara Pool EXERCISER.[facility] Work Phone: [facility] Work Phone: 2004 hepatitis B vaccine, pediatric or pediatric/adolescent dosage Siomara [place] EXERCISER.[facility] Work Phone: [facility] Work Phone: Payers Date Payer Category Payer Self-pay [id number] 2022 Unknown [id number] 2019 Medicaid [facility] [employer] MED[employer] [id number] 2019-Present [phone] [address] [place] [address] Medicaid [id number] 2019 Medicaid [id number] Unknown [id number] Unknown [id number] Unknown [id number] Social History Date Type Detail Facility Start: 05-08-2019 End: 10-27-2021 Tobacco smoking status NHIS Never smoked tobacco [facility] Start: 05-08-2019 End: 10-27-2021 Tobacco use and exposure Smokeless tobacco non-user [facility] Start: 07-01-2021 End: 10-30-2024 Alcohol intake Lifetime non-drinker (finding) [facility] Start: 05-06-2021 History SDOH Alcohol Frequency 1 [facility] Start: 2004 Sex Assigned At Not on file [facility] Start: 06-21-2021 End: 10-27-2021 Exposure to SARS-CoV-2 (event) Not sure [facility] Work Phone: Start: 11-24-2022 End: 04-05-2024 History of Social function [facility] Start: 11-24-2022 End: 04-05-2024 Tobacco use panel [facility] Start: 02-07-2012 National Score (1-10 0), lower number is lower risk 89 [facility] Start: 09-18-2022 [facility] Start: 06-16-2023 Tobacco smoking stat us DEIS Unknown if ever smoked [facility] Start: 2004 Sex Assigned At Female W [facility] Start: 06-26-2024 Education 13 [facility] Start: 06-26-2024 Gender identity Identifies as female gender (finding) [facility] Start: 06-26-2024 Sexual orientation Heterosexual (juanpablo malick) [facility] Medical Equipment Procedure Code Equipment Code Equipment Origin al Text Equipment Identifier Dates Use as directed to check glucose levels up to seven times daily. [id number], [id number], [id number], [id number] Start: 04-13-2023 End: 07-29-2023 Comment on above: Use as directed to c heck glucose levels up to seven times daily. Goals Date Patient Goal Desired Activity /State Personal health goal Personal health goal Clinical Notes 07-01-2021 to 10-30-2024 Quick Notes - Chuy Moore MD - 10/30/2024 8:44 AM EDTPrenatal Quick Notes - Chuy Moore MD - 10/30/2024 8:44 AM EDTPatient InstructionsPatient Instructions Note Date & Type Note Facility 10-30-2024 Miscellaneous Notes Formattin g of this note might be different from the original. SW- No pain, vb, lof. Good FM PE: Gen- NAD, well appearing Abd- Soft, gravid, NT See flowsheet A/p 34 wk gestation - Does not have time for 28 wk labs today. Discussed importance of completing. She will schedule lab draw - Discussed upcoming expectations - RTO 1 wk Chuy Moore DO documented in this encounter [facility] 10-30-2024 Progress note Formatting of t his note might be different from the original. SW- No pain, vb, lof. Good FM PE: Gen- NAD, well appearing Abd- Soft, gravid, NT See flowsheet A/p 34 wk gestation - Does not have time for 28 wk labs today. Discussed importance of completing. She will schedule lab draw - Discussed upcoming expectations - RTO 1 wk Chuy Moore DO [facility] 10-30-2024 Instructions Marah Snyder MA - 10/30/2024 8:29 AM EDT SEQUENTIAL SCREENINGS The [facility] offers sequential screenings for women who are [...] It will require an appointment with our hearing aide technician. This is not an ultrasound performed [...] the above symptoms, contact our office at [phone] and ask to speak with a nurse. After hours, you can call doctors registry at [phone] OR call [facility] at [phone] and ask to have the doctor front worker paged. If you consider this an emergency, dial 1-7-3 or go to your nearest emergency department. NEED HELP? Are you dealing with a violent or abusive relationship? Are you a victim of rape or sexual assult? Call [facility] ([place]) 24 hour Crisis Hotline: 668.308.6052 or 636-419-7366. MANUAL Your Guide to a Healthy manual is now on-line. Visit [email or web address] to download your free copy documented in this encounter [facility] 10-24-2024 Telephone encount er Note Order signed and faxed. Darline Cruz RN [facility] 10-24-2024 Miscellaneous Notes Formattin g of this note might be different from the original. Order signed and faxed. Darline Cruz RN Written order received from [facility] for breast pump. Placed on KJ desk for signature. Chi Galdamez RN documented in this encounter [facility] 10-16-2024 Note Indication Evaluation of growth late care Impression - Single, live, intrauterine . - presentation is cephalic. - The biometry is consistent with the assigned gestational dating. - The EFW is 2390 g, at the 82%. AC is at the 92%. - Amniotic fluid volume is normal amount with an MVP of 7.2 cm and KATELIN of 20.1 cm. - The placenta is posterior, fundal. - No malformations visualized on a limited survey as detailed below. Recommendations Additional follow-up as clinically indicated. Maternal Assessment Height 160 cm Height (ft) 5 ft Height (in) 3 in Maternal assessment other: 2 Para 1 REMOTE READ Method Transabdominal ultrasound examination Garza . Number of fetuses: 1 Dating GA by prior assessment 32 w + 6 d JEFFERY by prior assessment: 12/05/2024 Ultrasound examination on: 10/16/2024 GA by U/S based upon: AC, BPD, Femur, HC GA by U/S 34 w + 2 d JEFFERY by U/S: 11/25/2024 Assigned: based on stated JEFFERY, selected on 07/12/2024 Assigned GA 32 w + 6 d Assigned JEFFERY: 12/05/2024 General Evaluation Cardiac activity present. FHR 146 bpm. movements: present. Presentation: cephalic Placenta: Placental site: posterior, fundal Umbilical cord: Cord vessels: 3 vessel cord Amniotic fluid: Amount of AF: normal amount. MVP 7.2 cm. KATELIN 20.1 cm. Q1 7.2 cm, Q2 5.3 cm, Q3 3.6 cm, Q4 4.1 cm Growth Overview Exam date GA BPD (mm) HC (mm) AC (mm) FL (mm) HL (mm) EFW (g) 06/28/2024 17w 2d 35.4 31% 139.3 44% 126.4 79% 22.5 35% 07/12/2024 19w 1d 39.9 12% 162.2 43% 150.8 82% 30.7 77% 30.5 82% 312 80% 10/16/2024 32w 6d 87.2 95% 311.3 69% 307.2 92% 64.6 78% 2390 82% Biometry Standard BPD 87.2 mm 35w 1d 95% Hadlock OFD 107.5 mm 32w 1d 45% Nicolaides HC 311.3 mm 33w 6d 69% Cristina AC 307.2 mm 34w 5d 92% Hadlock Femur 64.6 mm 33w 1d 78% Cristina EFW 2,390 g 34w 0d 82% Hadlock EFW (lb) 5 lb EFW (oz) 4 oz EFW by: Hadlock (HC-AC-FL) Extended Taffy Candy Maker 6.2 mm Extremities / Bony Struc FL / HC 0.21 Other Structures FHR 146 bpm Anatomy Lateral ventricles: normal Cavum septi pellucidi: normal Cerebellum: normal Cisterna magna: normal 4-chamber view: normal RVOT view: normal LVOT view: normal 3-vessel view: normal Heart / Thorax Situs: situs solitus (normal) Diaphragm: normal Stomach: normal Kidneys: normal Bladder: normal sex: male Wants to know sex: yes Performed By: Darline Simmons, ISAAC, RVT Read By: Natalie Marin M.D. [facility] 10-16-2024 Progress note Formatting of t his note might be different from the original. S: Jimmy Lema is a 19 year old female who presents at 12/05/2024, by Last Menstrual Period for a routine visit. Denies headache, visual changes, chest pain, shortness of breath, vaginal bleeding, leakage of fluid, or dysuria. Feeling well, no complaints. Good movement, No contractions O: See flow sheet Gen: No apparent distress Abd: Gravid, nontender States BG is normal. Did not bring log Wants to stop work due to pelvic pain. belt not helping Encouraged to try KT tape EFW 82% KATELIN 20 ASSESSMENT/PLAN: 1. 32 weeks gestation of ([facility]) - ICD9: V22.2, ICD10: Z3A.32 (primary diagnosis) 2. Limited care in third trimester ([facility]) - ICD9: V23.7, ICD10: O09.33 3. Supervision of high risk in third trimester ([facility]) - ICD9: V23.9, ICD10: O09.93 Marium Stevenson MD [facility] 10-16-2024 Miscellaneous Notes Formattin g of this note might be different from the original. S: Jimmy Lema is a 19 year old female who presents at 12/05/2024, by Last Menstrual Period for a routine visit. Denies headache, visual changes, chest pain, shortness of breath, vaginal bleeding, leakage of fluid, or dysuria. Feeling well, no complaints. Good movement, No contractions O: See flow sheet Gen: No apparent distress Abd: Gravid, nontender States BG is normal. Did not bring log Wants to stop work due to pelvic pain. belt not helping Encouraged to try KT tape EFW 82% KATELIN 20 ASSESSMENT/PLAN: 1. 32 weeks gestation of ([facility]) - ICD9: V22.2, ICD10: Z3A.32 (primary diagnosis) 2. Limited care in third trimester ([facility]) - ICD9: V23.7, ICD10: O09.33 3. Supervision of high risk in third trimester ([facility]) - ICD9: V23.9, ICD10: O09.93 Marium Stevenson MD documented in this encounter [facility] 10-16-2024 Instructions Marah Snyder MA - 10/16/2024 1:33 PM EDT SEQUENTIAL SCREENINGS The [facility] offers sequential screenings for women who are [...] It will require an appointment with our hearing aide technician. This is not an ultrasound performed [...] the above symptoms, contact our office at [phone] and ask to speak with a nurse. After hours, you can call doctors registry at [phone] OR call [facility] at [phone] and ask to have the doctor front worker paged. If you consider this an emergency, dial 2-0-8 or go to your nearest emergency department. NEED HELP? Are you dealing with a violent or abusive relationship? Are you a victim of rape or sexual assult? Call [facility] ([place]) 24 hour Crisis Hotline: 103.935.4531 or 835-348-2521. MANUAL Your Guide to a Healthy manual is now on-line. Visit [email or web address] to download your free copy documented in this encounter [facility] 10-14-2024 History and physi dagmar note [facility] 10-10-2024 Evaluation note Diagnosis Onset Date Resolution 32 weeks gestation of acute October 10, 2024 3:12pm acute October 10 3:12pm Threatened labor, antepartum acute October 10 3:12pm 33 weeks gestation of acute October 14, 2024 12:48am Abdominal pain affecting acute October 14, 2024 12:48am Low back pain acute October 14, 2024 12:48am [facility] Work Phone: [phone]) 916-674608-01-2025 Telephone encounter Note* Telephone Encounter - Alf Trevino RN - 10/06/2024 12:18 PM EDT 3rd risk assessment form submitted 10/06/24 Alf Trevino RN [facility]08-01-2025 Miscellaneous Notes* Telephone Encounter - Alf Trevino RN - 10/06/2024 12:18 PM EDT 3rd risk assessment form submitted 10/06/24 Alf Tre[facility]ino RN [facility] Progress note* Quick Notes - Gina Kulkarni APRN.CNM - 10/05/2024 10:16 AM EDT S: Jimmy Lema is a 19 year old female who presents at 31 weeks gestation. Has not been seen in office in 8 weeks. Stated was sick and then couldn't get appointment. Discussed importance of keeping regular appointments. Positive movements. Denies any cramps or contractions. Did NOT completed 1 hour GCT today- declining screening due to last getting sick with drink.Discussed The Fresh Test and referral given for [...] and refusal of GCT Gina Kulkarni APRN.CNM [facility]07-31-2025 Miscellaneous Notes* Quick Notes - iGna Kulkarni APRN.CNM - 10/05/2024 10:16 AM EDT S: Jimmy Lema is a 19 year old female who presents at 31 weeks gestation. Has not been seen in office in 8 weeks. Stated was sick and then couldn't get appointment. Discussed importance of keeping regular appointments. Positive movements. Denies any cramps or contractions. Did NOT completed 1 hour GCT today- declining screening due to last getting sick with drink.Discussed The Fresh Test and referral given for [...] GCT Gina Kulkarni APRN.CNM documented in this encounterCoshocton Regional Medical Center07-31-2025 Instructions* Patient Instructions* Margarita Gibbs MA - 10/05/2024 9:50 AM EDT SEQUENTIAL SCREENINGS The [facility] offers sequential screenings for women who are [...] testing. It will require an appointment withour hearing aide technician. This is not an ultrasound performed [...] the above symptoms, contact our office at [phone] and ask to speak with anurse. After hours, you can call doctors registry at [phone] OR call [facility] at [phone] ask to have the doctor front worker paged. If you consider this an emergency, dial 2-6-4 or go to your nearest emergency department. NEED HELP? Are you dealing with a violent or abusive relationship? Are you a victim of rape or sexual assult? Call [facility] ([place]) 24 hour Crisis Hotline: 972.741.3507 or 851-208-5981. MANUAL Your Guide to a Healthy manual is now on-line. Visit [email or web address] to download your free copy documented in this encounterCoshocton Regional Medical Center07-28-2025 Telephone encounter Note * Telephone Encounter - Chi Galdamez RN - 10/02/2024 2:10 PM EDT Written order received from [employer] [facility] for breast pump. Placed on KJ desk for signature. Chi Galdamez RN [facility]07-13-2025 NoteHNO ID: [id number] Author: CRISTA VASQUEZ APRN.TESTING MACHINE OPERATOR Service: ? Author Type: Nurse Practitioner Type: Progress Notes Filed: 09/17/2024 08:54 Note Text: This note was created using QBuyter. Subjective Jimmy Lema is a 19 year [...] she will return for reevaluation. Crista Vasquez APRN.[facility]07-13-2025 History of Present illness Narrative* Crista Vasquez APRN.TESTING MACHINE OPERATOR - 09/17/2024 8:50 AM EDT This note was created using ViS. Subjective Jimmy Lema is a 19 year [...] Denies any recent fever. States she is stillurinating greater than 4 times per day. Review [...] plenty of fluids including high electrolyte fluids suchas Gatorade. If symptoms have not improved within the week she will return for reevaluation. Crista Vasquez APRN.[place] documented in this encounterCoshocton Regional Medical Center06-09-2025 Telephone encounter Note * Telephone Encounter - Alf Trevino RN - 08/14/2024 10:39 AM EDT 2nd risk assessment form submitted 08/14/24 Alf Trevino RN [facility]06-09-2025 Miscellaneous Notes* Telephone Encounter - Alf Trevino RN - 08/14/2024 10:39 AM EDT 2nd risk assessment form submitted 08/14/24 Alf Trevino RN documented in this encounterCoshocton Regional Medical Center06-06-2025 Progress note* Quick Notes - Gina Kulkarni APRN.CNM - 08/11/2024 2:09 PM EDT S: Jimmy Lema is a 19 year old female who presents at 23 weeks gestation for a routine visit.C/O head congestion and feeling sick. Reviewed appropriate medications in . Positive fetalmovements. Anatomy US last visit. Having a boy! [...] or sooner if needed Gina Kulkarni APRN.CNM [facility]06-06-2025 Miscellaneous Notes* Quick Notes - Gina Kulkarni APRN.CNM - 08/11/2024 2:09 PM EDT S: Jimmy Lema is a 19 year old female who presents at 23 weeks gestation for a routine visit.C/O head congestion and feeling sick. Reviewed appropriate medications in . Positive fetalmovements. Anatomy US last visit. Having a boy! [...] needed Gina Kulkarni APRN.CNM documented in this encounterCoshocton Regional Medical Center06-06-2025 Instructions* Patient Instructions* Gina Kulkarni APRN.CNM - 08/11/2024 1:42 PM EDT SEQUENTIAL SCREENINGS The [facility] offers sequential screenings for women who are [...] testing. It will require an appointment withour hearing aide technician. This is not an ultrasound performed by a physician in our office during a routine visit. The Fresh Test Purchase 50 gm pouch at [facility] Bring with 10 oz water [...] the above symptoms, contact our office at [phone] and ask to speak with anurse. After hours, you can call doctors registry at [phone] OR call [facility] at [phone] ask to have the doctor front worker paged. If you consider this an emergency, dial 91-5 or go to your nearest emergency department. NEED HELP? Are you dealing with a violent or abusive relationship? Are you a victim of rape or sexual assult? Call [facility] ([place]) 24 hour Crisis Hotline: 850.127.4364 or 600-556-8651. MANUAL Your Guide to a Healthy manual is now on-line. Visit [email or web address] to download your free copy documented in this encounterCoshocton Regional Medical Center05-07-2025 Instructions* Patient Instructions* Kisha Da Silva MA - 07/12/2024 3:54 PM EDT SEQUENTIAL SCREENINGS The [facility] offers sequential screenings for women who are [...] testing. It will require an appointment withour hearing aide technician. This is not an ultrasound performed [...] the above symptoms, contact our office at [phone] and ask to speak with anurse. After hours, you can call doctors registry at [phone] OR call [facility] at [phone] ask to have the doctor front worker paged. If you consider this an emergency, dial 91-4 or go to your nearest emergency department. NEED HELP? Are you dealing with a violent or abusive relationship? Are you a victim of rape or sexual assult? Call [facility] ([place]) 24 hour Crisis Hotline: 873.707.7803 or 492-410-0239. MANUAL Your Guide to a Healthy manual is now on-line. Visit [email or web address] to download your free copy documented in this encounterCoshocton Regional Medical Center05-07-2025 NoteHNO ID: [id number] Author: PAULINA CHADWICK APRN.TESTING MACHINE OPERATOR Service: ? Author Type: Nurse Practitioner Type: [...] high risk in second trimester, antepartum (HCC) - ICD9: V23.9, ICD10: O09.92 (primary diagnosis) - Continue LDA and PNV 2. 19 weeks gestation of (HCC) - ICD9: V22.2, ICD10: Z3A.19 - Anatomy ultrasound today, report pending 3. Short interval between pregnancies affecting in second trimester, antepartum (HCC) - ICD9: V23.89, ICD10: O09.892 - 06/2023 4. Rubella non-immune status, antepartum ([facility]) - ICD9: 646.83, V15.83, ICD10: O09.899, Z28.39 - Reviewed - Recommend MMR PTL precautions reviewed. RTO in 4 weeks or sooner as needed. Paulina Chadwick APRN.[facility]05-07-2025 History of Present illness Narrative* Paulina Chadwick APRN.TESTING MACHINE OPERATOR - 07/12/2024 3:07 PM EDT EH - S: Jimmy is a 19 [...] high risk in second trimester, antepartum (HCC) - ICD9: V23.9, ICD10: O09.92 (primary diagnosis) - Continue LDA and PNV 2. 19 weeks gestation of (HCC) - ICD9: V22.2, ICD10: Z3A.19 - Anatomy ultrasound today, report pending 3. Short interval between pregnancies affecting in second trimester, antepartum (HCC) - ICD9: V23.89, ICD10: O09.892 - 06/2023 4. Rubella non-immune status, antepartum ([facility]) - ICD9: 646.83, V15.83, ICD10: O09.899, Z28.39 - Reviewed - Recommend MMR PTL precautions reviewed. RTO in 4 weeks or sooner as needed. Paulina Chadwick APRN.CNP documented in this encounterCoshocton Regional Medical Center04-23-2025 Progress note* Quick Notes - Gina Kulkarni APRN.CNM - 06/28/2024 9:21 AM EDT Patient is at 17 weeks gestation here for NOB appointment. on 06/17/23. Patient reports she did not know she was until a couple of weeks ago when she started feeling movements. Gina Kulkarni APRN.CNM [facility]04-23-2025 Miscellaneous Notes* Quick Notes - Gina Kulkarni APRN.CNM - 06/28/2024 9:21 AM EDT Patient is at 17 weeks gestation here for NOB appointment. on 06/17/23. Patient reports she did not know she was until a couple of weeks ago when she started feeling movements. Gina Kulkarni APRN.CNM documented in this encounterCoshocton Regional Medical Center04-21-2025 NoteHNO ID: [id number] Author: GINA KULKARNI APRN.CNM Service: ? Author Type: Suction Drum Drier Operator Type: Progress Notes Filed: 06/28/2024 09:25 Note Text: Catering Coordinator offered: Patient declines. INITIAL OB ASSESSMENT HPI: [...] for: Rash, Itching JOE (more content not included)...[facility]04-21-2025 History of Present illness Narrative* Gina Kulkarni APRN.ARELIS - 06/26/2024 2:29 PM EDT Catering Coordinator offered: Patient declines. INITIAL OB ASSESSMENT HPI: [...] every 6 hours as needed. (Patient not taking:Reported on 06/26/2024) Norethindrone, Contraceptive, 0.35 mg tablet [...] discussed with the Patient or Patient's Authorized Gyroscope Repairer. As applicable, any other physician, advance practice provider, medical student, or other health professional student that will be observing or involved in the sensitive examination for educational or training purposes was discussed with the Patient or Authorized Gyroscope Repairer. The Patient or Authorized Gyroscope Repairer has agreed to proceed with the sensitive [...] Your guide to a health and the [employer]. 2) Screening: Hemoglobin A1C: ordered Baby Aspirin: [...] aneuploidy screening was provided. The patient chooses toproceed with NIPT (10 weeks) Myriad Carrier Screening: [...] prn. Gina Kulkarni APRN.CNM documented in this encounterCoshocton Regional Medical Center04-21-2025 Instructions* Patient Instructions* Rosi Pascual MA - 06/26/2024 2:29 PM EDT Please select the following link to access the [facility] Your Guide to a Healthy . [email or web address] documented in this encounterCoshocton Regional Medical Center02-07-2025 Telephone encounter Note * Telephone Encounter - Priscila Chaudhry RN - 04/14/2024 1:21 PM EST Patient notified, voiced understanding. Local scheduler maintenance states not able to schedule for medical spine center so scheduling number provided to patient (please call [phone] for scheduling ) Priscila Chaudhry RN [facility]02-07-2025 Miscellaneous Notes* Telephone Encounter - Priscila Chaudhry RN - 04/14/2024 1:21 PM EST Patient notified, voiced understanding. Local scheduler maintenance states not able to schedule for medical spine center so scheduling number provided to patient (please call [phone] for scheduling ) Priscila Chaudhry RN * Telephone Encounter - Diana Velazquez PA-C - 04/14/2024 12:58 PM EST Please let patient know I e-consulted Orthopedics. It was advised that patient obtain additional x-ray imaging (lumbar spine series - has been ordered) and a new consult has been placed for the [facility] spine center per their recommendations. Please assist patient with scheduling. Diana Velazquez PA-C * Telephone Encounter - Diana Velazquez PA-C - 04/14/2024 10:26 AM EST Patient does not need to see Neurology. E-consult placed to Orthopedics. Diana Velazquez PA-C * Telephone Encounter - Chrystal Og LPN - 04/13/2024 1:06 PM EST Is pt needing to go to neurology? * Telephone Encounter - Elsy Evans RN - 04/13/2024 12:23 PM EST per cc'd chart from [place] - Message ----- From: Diana Velazquez PA-C Sent: 04/13/2024 6:42 AM EST To: [facility] First Floor Pool Was patient ever able to get scheduled with Ortho? Either through [facility] or a more local provider? Given lack of neurological sequelae and x-ray imaging results, it seems Orthopedics would be most appropriate at this time. Diana Velazquez PA-C Please advise regarding patient's report of needing to see neurology.(awaiting further info from patient) documented in this encounterCoshocton Regional Medical Center02-07-2025 Telephone encounter Note * Telephone Encounter - Diana Velazquez PA-C - 04/14/2024 12:58 PM EST Please let patient know I e-consulted Orthopedics. It was advised that patient obtain additional x-ray imaging (lumbar spine series - has been ordered) and a new consult has been placed for the medical spine center per their recommendations. Please assist patient with scheduling. Diana Velazquez PA-C [facility]02-07-2025 NoteHNO ID: [id number] Author: DONALD DE LA TORRE PA-C Service: ? Author Type: Physician Supervisor Wet End Type: Progress Notes Filed: 04/14/2024 12:33 Note [...] above. Donald De La Torre PA-C April 14[facility] [place] History of Present illness Narrative* Donald De La Torre PA-C - 04/14/2024 12:29 PM EST E-Consult Response In response to your eConsult request to Orthopedics for Jimmy L Battles regarding nodule on lumbarspine History of present illness, provided through the requesting provider documentation and current treatment plan, was reviewed. Based on the patient history provided, my recommendation is as follows: I would obtain a lumbar spine x-ray series and I would refer this patient into our medical spine center. This is the reason why the patient cannot schedule within sports medicine/orthopedics, becausethis is a lumbar spine/spine issue, which gets directed to our spine center. E-Consult follow up recommendation: As noted above. Donald De La Torre PA-C April 14, 2024 documented in this encounterCoshocton Regional Medical Center02-07-2025 Telephone encounter Note * Telephone Encounter - Diana Velazquez PA-C - 04/14/2024 10:26 AM EST Patient does not need to see Neurology. E-consult placed to Orthopedics. Diana Velazquez PA-C [facility]02-06-2025 Telephone encounter Note* Telephone Encounter - Chrystal Og LPN - 04/13/2024 1:06 PM EST Is pt needing to go to neurology? [facility]02-06-2025 Telephone encounter Note* Telephone Encounter - Elsy Evans RN - 04/13/2024 12:23 PM EST per cc'd chart from [place] - Message ----- From: Diana Velazquez PA-C Sent: 04/13/2024 6:42 AM EST To: [facility] First Floor [place] Was patient ever able to get scheduled with Ortho? Either through [facility] or a more local provider? Given lack of neurological sequelae and x-ray imaging results, it seems Orthopedics would be most appropriate at this time. Diana Velazquez PA-C Please advise regarding patient's report of needing to see neurology.(awaiting further info from patient) [facility]01-31-2025 Telephone encounter Note* Telephone Encounter - Chrystal Og LPN - 04/07/2024 8:50 AM EST Patient was notified of advice and/or results. Pt is unable to schedule at this time and will call back when able. [facility]01-31-2025 Miscellaneous Notes* Telephone Encounter - Chrystal Og LPN - 04/07/2024 8:50 AM EST Patient was notified of advice and/or results. Pt is unable to schedule at this time and will call back when able. 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 Consult placed for Ortho/Sports medicine for further evaluation. 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 Consult placed for Ortho/Sports medicine for further evaluation. Diana Velazquez PA-C [facility]01-29-2025 History of Present illness Narrative* Kalli García, RT(R) - 04/05/2024 3:30 PM EST Radiology Service Progress Note PATIENT NAME: Jimmy Lema DATE OF SERVICE: April 05, 2024 TIME: 3:44 PM PATIENT IDENTITY VERIFICATION COMPLETED USING TWO (2) IDENTIFIERS: Name and Date of confirmedby patient verbally. FALL SCREENING: Has the patient had 2 falls in the last year or 1 fall with injury or currently using an Ambulatory Assistive Device (Walker, Cane, Wheelchair, Crutches, etc.)? No PATIENT GENDER DATA: Assigned female at . status: : No status:NO. PATIENT RELEVANT IMPLANT DATA REVIEWED: Yes PATIENT PRESENTS WITH AN IMPLANTABLE OR ATTACHED FRAME FEEDER: No RADIOLOGY DEPARTMENT: General X-ray: Exam(s) Completed: Spine X-Ray(s): Sacrum/Coccyx PERIPHERAL IV DATA: Not applicable SIGNED BY: RT Juancarlos(R) April 05, 2024 3:44 PM documented in this encounterCoshocton Regional Medical Center01-29-2025 NoteHNO ID: [id number] Author: KALLI GARCÍA RT(R) Service: ? Author Type: Siebel Solution Architect Type: Progress Notes Filed: 04/05/2024 15:56 Note [...] PATIENT PRESENTS WITH AN IMPLANTABLE OR ATTACHED FRAME FEEDER: No RADIOLOGY DEPARTMENT: General X-ray: Exam(s) Completed: Spine X-Ray(s): Sacrum/Coccyx PERIPHERAL IV DATA: Not applicable SIGNED BY: RT Juancarlos(R) April 05, 2024 3:44 [facility]01-29-2025 NoteHNO ID: [id number] Author: DIANA VELAZQUEZ PA-C Service: ? Author Type: Physician Supervisor Wet End Type: Progress Notes Filed: 04/13/2024 06:39 Note [...] trying to do this. will not reorder. Esme Jordan MD Anemia Complicating , Third Trimester - [...] PATIENT NAME:Jimmy Lema DATE: 04/05/2024 TIME: 3:11 [facility]01-29-2025 History of Present illness Narrative* Diana Velazquez PA-C - 04/05/2024 3:11 PM EST PEDIATRIC VISIT SERVICE DATE: 04/05/2024 SUBJECTIVE: Jimmy [...] 3hr GTT and will get this done. Rahda Manrique APRN.CNM April 20, 2023 Vomited two different times trying to do this. will not reorder. Esme Jordan MD Anemia Complicating , Third Trimester - [...] bilaterally, good air exchange, no retractions, breathing comfortably,no wheezes, rales, or rhonchi CVS: Normal rate, [...] 04/05/2024 TIME: 3:11 PM documented in this encounterCoshocton Regional Medical Center01-09-2025 Telephone encounter Note * Telephone Encounter - Chi Galdamez RN - 03/16/2024 10:03 AM EST Pt notified and voiced understanding. Chi Galdamez RN [facility]01-09-2025 Miscellaneous Notes* Telephone Encounter - Chi Galdamez RN - 03/16/2024 10:03 AM EST Pt notified and voiced understanding. Chi Galdamez RN * Telephone Encounter - Siomara Lanza APRN.CNP - 03/16/2024 8:53 AM EST Based on urinalysis it does appear the patient has a urinary tract infection Macrobid into drug Rover in [place]. Please notify patient. Siomara Lanza APRN.CNP documented in this encounterCoshocton Regional Medical Center01-09-2025 Telephone encounter Note * Telephone Encounter - Siomara Lanza APRN.CNP - 03/16/2024 8:53 AM EST Based on urinalysis it does appear the patient has a urinary tract infection Macrobid into drug Rover in [place]. Please notify patient. Siomara Lanza APRN.CNP [facility]01-07-2025 Telephone encounter Note* Telephone Encounter - Siomara Lanza APRN.CNP - 03/14/2024 11:35 AM EST Orders filed. Please contact pt. Siomara Lanza APRN.CNP [facility]01-07-2025 Miscellaneous Notes* Telephone Encounter - Siomara Lanza APRN.CNP - 03/14/2024 11:35 AM EST Orders filed. Please contact pt. Siomara Lanza APRN.CNP * Telephone Encounter - Marium Patel RN - 03/14/2024 10:10 AM EST Orders pending documented in this encounterCoshocton Regional Medical Center01-07-2025 Telephone encounter Note * Telephone Encounter - Marium Patel RN - 03/14/2024 10:10 AM EST Orders pending [facility]07-25-2024 Telephone encounter Note* Telephone Encounter - Marium Patel RN - 09/30/2023 12:16 PM EDT Faxed [facility]07-25-2024 Miscellaneous Notes* Telephone Encounter - Marium Patel RN - 09/30/2023 12:16 PM EDT Faxed * Telephone Encounter - Marium Patel RN - 09/29/2023 8:18 AM EDT Received breast pump RX from [address] [place] [address]. To KJ to sign. Marium Patel RN documented in this encounterCoshocton Regional Medical Center07-24-2024 Telephone encounter Note * Telephone Encounter - Marium Patel RN - 09/29/2023 8:18 AM EDT Received breast pump RX from [address] [place] [address]. To KJ to sign. Marium Patel RN [facility]07-01-2024 Telephone encounter Note* Telephone Encounter - Darline Cruz RN - 09/06/2023 11:52 AM EDT Can you address? [facility]07-01-2024 Miscellaneous Notes* Telephone Encounter - Darline Cruz RN - 09/06/2023 11:52 AM EDT Can you address? documented in this encounterCoshocton Regional Medical Center06-27-2024 Telephone encounter Note * Telephone Encounter - Marium Patel RN - 09/02/2023 2:09 PM EDT Faxed [facility]06-27-2024 Miscellaneous Notes* Telephone Encounter - Marium Patel RN - 09/02/2023 2:09 PM EDT Faxed * Telephone Encounter - Ny Cruz RN - 09/02/2023 11:14 AM EDT Received faxed order for breast pump from [employer]. Order form on Dr. Alhaji thomas for signature. documented in this encounterCoshocton Regional Medical Center06-27-2024 Telephone encounter Note * Telephone Encounter - Ny Cruz RN - 09/02/2023 11:14 AM EDT Received faxed order for breast pump from [employer]. Order form on Dr. Alhaji thomas for signature. [facility]05-23-2024 Instructions* Patient Instructions* Pualina Chadwick APRN.CNP - 07/29/2023 8:58 AM EDT Constipation - Docusate sodium 200 mg or Dara-colace 2 tablets at bedtime. Add Miralax in the morning as needed. documented in this encounterCoshocton Regional Medical Center05-23-2024 History of Present illness Narrative* Paulina Chadwick APRN.CNP - 07/29/2023 8:44 AM EDT VISIT Jimmy Lema is a 18 year old year old here for visit. Delivery Summary: on 06/17/23 (elective induction), 8lb 3oz, bilateral labial laceration with repair ROS/ Recovery: Feeding: Breast feeding problems: None Menses since delivery: has not had any more bleeding Menstrual pattern prior to : Regular periods [place] since delivery: Not resumed Depression: denies symptoms [...] external genitalia normal, normal Bartholin's glands, urethra, [place]'s glands, no vulvar lesions, no cervical lesions, [...] Recommend follow up with PCP Paulina Chadwick APRN.TESTING MACHINE OPERATOR documented in this encounterCoshocton Regional Medical Center04-12-2024 Hospital Discharge instructions Additional Instructions Date of Discharge: 06/18/23[facility] Work Phone: 1(823) 415-192604-12-2024 Discharge summary Author Marium Stevenson [facility] June 18, 2023 7:27am Note Date/Time June 18, 2023 7:2 7am [facility] Medical Records Department [address] [place] [id number] Discharge Summary 06/18/23 0725 MR#: [id number] Acct: [id number] Name: JIMMY LEMA Rep #:[id number] : 2005 18 From: Marium Stevenson MD PCP: Care Physician,No Primary Status :ADM IN Location: [id number] Providers Date of Admission: 06/16/23 Date of [...] Stevenson MD; No Primary Care Physician~ Signed [facility] Work Phone: 1(534) 924-636304-12-2024 Progress note Author Marium Stevenson [facility] June 18, 2023 7:22am Note Date/Time June 18, 2023 7:2 2am [facility] Medical Records Department [address] [place] [address] Progress Note - OBGYN 06/18/2321 MR#: [id number] Acct: [id number] Name: JIMMY LEMA Rep #:[id number] : 2005 18 From: Marium Stevenson MD PCP: Care Physician,No Primary Status :ADM IN Location: [id number] Subjective Subjective Feels good. No complaints. Breast [...] vaginal delivery): PLAN: Plan discharge this afternoon 06/18/23 0722 <Electronically signed by Marium Stevenson MD> Cosigner Signature (if applicable): CC: ~ Signed [facility] Work Phone: 1(322) 389-659504-11-2024 History of Present illness Narrative* Marium Patel RN - 06/17/2023 2:05 PM EDT Patient delivered via at [facility] on 06/17/23 per Marium Stevenson MD. See OB Outcome note. Marium Patel, RN documented in this encounterCoshocton Regional Medical Center04-11-2024 Procedure [facility]04-11-2024 Progress note Author Marium Stevenson [facility] June 17, 2023 8:28am Note Date/Time June 17, 2023 8:2 2am [facility] Medical Records Department [address] [place] [address] Progress Note - OBGYN 06/17/23 0817 MR#: [id number] Acct: [id number] Name: JIMMY LEMA Rep #:[id number] : 2005 18 From: Marium Stevenson MD PCP: Care Physician,No Primary Status :ADM IN Location: [place] [address] Subjective Subjective AROM for clear fluid. Comfortable [...] 75.7 H, Lymph % (Auto) 14.0 L, Leslie % (Auto) 8.1, Eos % (Auto) 0.3, [...] Cosigner Signature (if applicable): CC: ~ Signed [facility] Work Phone: 1(837) 901-275104-11-2024 History and physical note Author Gina Kulkarni [facility] June 16, 2023 11:13pm Note Date/Time June 16, 2023 8:1 4pm [facility] Medical Records Department [address] [place] [address] H&P Exam - ENVIRONMENTAL MARKETER 06/16/232006 MR#: [id number] Acct: [id number] Name: JIMMY LEMA Rep #:[id number] : 2005 18 From: Gina Kulkarni CNM PCP: Care Physician,No Primary Status :ADM IN [facility] - General General Date of Admission: 06/16/23 HPI Narrative JIMMY LEMA, is a 18 F at 40.5 weeks gestation who presents for an elective induction of labor. Maternal Data Information JEFFERY Calculator Estimated Delivery Date Method Current WG Current Estimate 06/11/23 Manual 40w 5d PFSH PFSH Medical History (Updated 06/16/23 @ 20:11 by [...] Plan Admit to labor and delivery CE 2/-2 Routine labs Start IV and run fluids per orders GBS positive- Start PCN 5 million units IV x 1 now and continue PCN 3 million units IV every 4 hours until delivery Cytotec 25 mcg PO every 4 hours x 6 doses total Villalobos bulb unable to be placed at this time due to acuity on unit Dr. Jordan notified of admission and is collaborating physician 06/16/23 2393 <Electronically signed by Gina Kulkarni CNM> Cosigner Signature (if applicable): CC: ARELIS Kulkarni; No Primary Care Physician~ Signed [facility] Work Phone: 1(535) 716-578404-11-2024 Progress note Author Gina Kulkarni [facility] June 16, 2023 11:11pm Note Date/Time June 16, 2023 11: 11pm [facility] Medical Records Department [address] [place] [id number] Progress Note - OBGYN 06/16/23 2309 MR#: [id number] Acct: [id number] Name: JIMMY LEMA Rep #:[id number] : 2005 18 From: Gian Kulkarni CNM PCP: Care Physician,No Primary Status :ADM IN Location: [place] [address] Subjective Subjective Patient seen at bedside. Denies [...] 75.7 H, Lymph % (Auto) 14.0 L, Leslie % (Auto) 8.1, Eos % (Auto) 0.3, [...] complete 3 hour GTT PLAN: Plan CE 260/-2 Villalobos bulb placed without difficulty and filled with 30 cc N/S Cat. 1 tracing 06/16/23 2311 <Electronically signed by Gina Kulkarni CNM> Cosigner Signature (if applicable): CC: ~ Signed [facility] Work Phone: 1(729) 458-116804-02-2024 Miscellaneous Notes* Quick Notes - Raisa Macias MD - 06/08/2023 3:34 PM EDT KJ [...] weeks labor precautions reviewed, Kick counts reviewed. Raisa Macias MD documented in this encounterCoshocton Regional Medical Center04-02-2024 Instructions* Patient Instructions* Margarita Gibbs MA - 06/08/2023 11:17 AM EDT SEQUENTIAL SCREENINGS [facility] offers sequential screenings for women who are [...] testing. It will require an appointment withour hearing aide technician. This is not an ultrasound performed [...] the above symptoms, contact our office at [phone] and ask to speak with anurse. After hours, you can call doctors registry at [phone] OR call [facility] at [phone] ask to have the doctor front worker paged. If you consider this an emergency, dial 9-1-6 or go to your nearest emergency department. NEED HELP? Are you dealing with a violent or abusive relationship? Are you a victim of rape or sexual assult? Call [facility] ([place]) 24 hour Crisis Hotline: 580.151.6426 or 239-570-7274. MANUAL Your Guide to a Healthy manual is now on-line. Visit [email or web address] to download your free copy documented in this encounterCoshocton Regional Medical Center03-26-2024 Miscellaneous Notes* Quick Notes - Raisa Macias MD - 06/01/2023 11:47 AM EDT KJ [...] use Labor precautions reviewed, Kick counts reviewed. Raisa Macias MD documented in this encounterCoshocton Regional Medical Center03-26-2024 Instructions* Patient Instructions* Marah Snyder MA - 06/01/2023 11:26 AM EDT SEQUENTIAL SCREENINGS [facility] offers sequential screenings for women who are [...] testing. It will require an appointment withour hearing aide technician. This is not an ultrasound performed [...] the above symptoms, contact our office at [phone] and ask to speak with anurse. After hours, you can call doctors registry at [phone] OR call [facility] at [phone] ask to have the doctor front worker paged. If you consider this an emergency, dial 9-1-9 or go to your nearest emergency department. NEED HELP? Are you dealing with a violent or abusive relationship? Are you a victim of rape or sexual assult? Call [facility] ([place]) 24 hour Crisis Hotline: 296.604.7941 or 084-618-4807. MANUAL Your Guide to a Healthy manual is now on-line. Visit [email or web address] to download your free copy documented in this encounterCoshocton Regional Medical Center03-25-2024 History of Present illness Narrative* Marah Stallings MA - 05/31/2023 10:09 AM EDT POPULATION HEALTH NAVIGATION OUTREACH Action/I 1st attempt: Called and left message to call back to discuss commodity manager. MC message sent. Reason for Outreach Medicaid OB/Peds Care Gaps due: N/A Patient Contacted: Unable or unnecessary to reach patient: Left message MyChart message sent Navigation Signature: Marah Oakes MA May 31, 2023 10:10 AM documented in this encounterCoshocton Regional Medical Center03-19-2024 Miscellaneous Notes* Quick Notes - Raisa Macias MD - 05/25/2023 1:53 PM EDT KJ - VB No. LOF No. CTXS No. Movement: present. Other c/o: No. Medication list reviewed. Physical Exam See Flow Sheet Gen: no accute distress, well appearing Abd: soft, nontender, gravid A/P 37w4d Estimated Date of Delivery: 06/11/23 Anemia - continue iron & PNV Labor precautions reviewed, Kick counts reviewed. Raisa Macias MD documented in this encounterCoshocton Regional Medical Center03-19-2024 Instructions* Patient Instructions* Brandon Gilman MA - 05/25/2023 1:24 PM EDT SEQUENTIAL SCREENINGS [facility] offers sequential screenings for women who are [...] testing. It will require an appointment withour hearing aide technician. This is not an ultrasound performed [...] the above symptoms, contact our office at [phone] and ask to speak with anurse. After hours, you can call doctors registry at [phone] OR call [facility] at [phone] ask to have the doctor front worker paged. If you consider this an emergency, dial 1-2-9 or go to your nearest emergency department. NEED HELP? Are you dealing with a violent or abusive relationship? Are you a victim of rape or sexual assult? Call [facility] ([place]) 24 hour Crisis Hotline: 199.250.2872 or 694-467-8047. MANUAL Your Guide to a Healthy manual is now on-line. Visit [email or web address] to download your free copy documented in this encounterCoshocton Regional Medical Center03-12-2024 Miscellaneous Notes* Quick Notes - Esme Jordan MD - 05/18/2023 10:25 AM EDT RR- VB No. LOF No. CTXS No. Movement: present. Other c/o: No. Medication list reviewed. Physical Exam See Flow Sheet Abd: soft, nontender, gravid Ext: edema: no A/P 36w4d Estimated Date of Delivery: 06/11/23 GBS f/u weekly kick counts BS log reviewed, normal. Does not need to check anymore . Esme Jordan M.D. documented in this encounterCoshocton Regional Medical Center03-12-2024 Instructions* Patient Instructions* Mamie Olivarez MA - 05/18/2023 10:01 AM EDT SEQUENTIAL SCREENINGS [facility] offers sequential screenings for women who are [...] testing. It will require an appointment withour hearing aide technician. This is not an ultrasound performed [...] the above symptoms, contact our office at [phone] and ask to speak with anurse. After hours, you can call doctors registry at [phone] OR call [facility] at [phone] ask to have the doctor front worker paged. If you consider this an emergency, dial 0--7 or go to your nearest emergency department. NEED HELP? Are you dealing with a violent or abusive relationship? Are you a victim of rape or sexual assult? Call [facility] ([facility] 24 hour Crisis Hotline: 919.572.6093 or 638-591-8836. MANUAL Your Guide to a Healthy manual is now on-line. Visit [email or web address] to download your free copy documented in this encounterCoshocton Regional Medical Center02-27-2024 Miscellaneous Notes* Telephone Encounter - Raisa Macias MD - 05/04/2023 10:36 AM EST Patient had visit today. Raisa Macias MD * Telephone Encounter - Marium Patel RN - 05/03/2023 1:17 PM EST 34w3d Patient has OB visit with IRWIN on 05/04 documented in this encounterCoshocton Regional Medical Center02-27-2024 Miscellaneous Notes* Quick Notes - Raisa Macias MD - 05/04/2023 9:54 AM EST KJ [...] PNV PTL precautions reviewed, Kick counts reviewed. Raisa Macias MD documented in this encounterCoshocton Regional Medical Center02-27-2024 Instructions* Patient Instructions* Marah Snyder MA - 05/04/2023 9:46 AM EST SEQUENTIAL SCREENINGS [facility] offers sequential screenings for women who are [...] testing. It will require an appointment withour hearing aide technician. This is not an ultrasound performed [...] the above symptoms, contact our office at [phone] and ask to speak with anurse. After hours, you can call doctors registry at [phone] OR call [facility] at [phone] ask to have the doctor front worker paged. If you consider this an emergency, dial 9-3-6 or go to your nearest emergency department. NEED HELP? Are you dealing with a violent or abusive relationship? Are you a victim of rape or sexual assult? Call [facility] ([place]) 24 hour Crisis Hotline: 365.744.2948 or 058-324-3534. MANUAL Your Guide to a Healthy manual is now on-line. Visit [email or web address] to download your free copy documented in this encounterCoshocton Regional Medical Center02-13-2024 Miscellaneous Notes* Telephone Encounter - Johnna Perez LPN - 04/20/2023 1:05 PM EST Message viewed per pt. Johnna Perez LPN * Telephone Encounter - Johnna Perez LPN - 04/20/2023 10:47 AM EST Please see pt's mychart message and advise further. Johnna Perez LPN * Telephone Encounter - Siomara Lanza APRN.R[place]ELT - 04/20/2023 10:44 AM EST Needs reviewed by an OB provider. Siomara Lanza APRN.[place]T * Telephone Encounter - Johnna Perez LPN - 04/20/2023 10:29 AM EST Please see pt's JolieBox message and further advise. Johnna Perez LPN documented in this encounterCoshocton Regional Medical Center02-13-2024 Miscellaneous Notes* Quick Notes - Esme Jordan MD - 04/20/2023 9:40 AM EST RR- [...] fe f/u in 2 weeks or prn Esme Jordan M.D. documented in this encounterCoshocton Regional Medical Center02-13-2024 Instructions* Patient Instructions* Margarita Gibbs Ma - 04/20/2023 9:33 AM EST SEQUENTIAL SCREENINGS [facility] offers sequential screenings for women who are [...] testing. It will require an appointment withour hearing aide technician. This is not an ultrasound performed [...] the above symptoms, contact our office at [phone] and ask to speak with anurse. After hours, you can call doctors registry at [phone] OR call [facility] at [phone] ask to have the doctor front worker paged. If you consider this an emergency, dial 9-1-8 or go to your nearest emergency department. NEED HELP? Are you dealing with a violent or abusive relationship? Are you a victim of rape or sexual assult? Call [facility] ([place]) 24 hour Crisis Hotline: 656.946.7393 or 097-990-5335. MANUAL Your Guide to a Healthy manual is now on-line. Visit [email or web address] to download your free copy documented in this encounterCoshocton Regional Medical Center02-05-2024 Miscellaneous Notes* Telephone Encounter - Christal Lane RN - 04/12/2023 9:29 AM EST 31w3d today. Next visit 04/20 with RR. documented in this encounterCoshocton Regional Medical Center12-12-2023 Miscellaneous Notes* Quick Notes - Siomara Lanza APRN.ROOSEVELT - 02/16/2023 2:57 PM EST RM-Pt doing well. Denies vaginal Bleeding, Leaking fluid, or regular Contractions. Pt reports good movement Physical Exam: Gen: no apparent distress Abd: soft, Gravid. Non tender to palpation. See flow sheet RTO 4 weeks, GCT for next visit. Siomara Lanza APRN.TESTING MACHINE OPERATOR documented in this encounterCoshocton Regional Medical Center12-12-2023 Instructions* Patient Instructions* Brandon Gilman Cma - 02/16/2023 2:30 PM EST SEQUENTIAL SCREENINGS [facility] offers sequential screenings for women who are [...] testing. It will require an appointment withour hearing aide technician. This is not an ultrasound performed [...] the above symptoms, contact our office at [phone] and ask to speak with anurse. After hours, you can call doctors registry at [phone] OR call [facility] at [phone] ask to have the doctor front worker paged. If you consider this an emergency, dial 9-1 or go to your nearest emergency department. NEED HELP? Are you dealing with a violent or abusive relationship? Are you a victim of rape or sexual assult? Call [facility] ([place]) 24 hour Crisis Hotline: 127.587.7292 or 672-221-1254. MANUAL Your Guide to a Healthy manual is now on-line. Visit [email or web address] to download your free copy documented in this encounterCoshocton Regional Medical Center11-21-2023 Miscellaneous Notes* Telephone Encounter - Christal Lane [...] time limits for draw. documented in this encounterCoshocton Regional Medical Center11-16-2023 Miscellaneous Notes* Telephone Encounter - Christal Lane [...] 01/21/2023 3:27 PM EST ----- Message from Raisa Macias MD sent at 01/21/2023 12:01 PM EST ----- Return 4 weeks to complete anatomic survey Raisa Macias MD documented in this encounterCoshocton Regional Medical Center11-15-2023 Miscellaneous Notes* Quick Notes - Esme Jordan MD - 01/20/2023 2:48 PM EST RR- VB No. LOF No. CTXS No. Movement: present. Other c/o: No. Medication list reviewed. Physical Exam See Flow Sheet Gen: no accute distress, well appearing A/P 19w5d Estimated Date of Delivery: 06/11/23 second part of sequential today Anatomy US done today, results pending. F/u in 4 weeks or prn. . Esme Jordan M.D. documented in this encounterCoshocton Regional Medical Center11-15-2023 Instructions* Patient Instructions* Margarita Gibbs Ma - 01/20/2023 2:14 PM EST SEQUENTIAL SCREENINGS [facility] offers sequential screenings for women who are [...] testing. It will require an appointment withour hearing aide technician. This is not an ultrasound performed [...] the above symptoms, contact our office at [phone] and ask to speak with anurse. After hours, you can call doctors registry at [phone] OR call [facility] at [phone] ask to have the doctor front worker paged. If you consider this an emergency, dial 9-1-7 or go to your nearest emergency department. NEED HELP? Are you dealing with a violent or abusive relationship? Are you a victim of rape or sexual assult? Call [facility] ([place]) 24 hour Crisis Hotline: 852.975.6726 or 620-220-5853. MANUAL Your Guide to a Healthy manual is now on-line. Visit [email or web address] to download your free copy documented in this encounterCoshocton Regional Medical Center10-17-2023 Miscellaneous Notes* Quick Notes - Raisa Macias MD - 12/22/2022 2:49 PM EDT KJ - VB No. LOF No. CTXS No. Movement: present. Other c/o: No. Medication list reviewed. Physical Exam See Flow Sheet Gen: no accute distress, well appearing Abd: soft, nontender, gravid A/P 15w4d Estimated Date of Delivery: 06/11/23 2nd trimester screen today Anatomy US ordered Raisa Macias MD documented in this encounterCoshocton Regional Medical Center10-17-2023 Instructions* Patient Instructions* Marah Snyder MA - 12/22/2022 2:36 PM EDT SEQUENTIAL SCREENINGS [facility] offers sequential screenings for women who are [...] testing. It will require an appointment withour hearing aide technician. This is not an ultrasound performed [...] the above symptoms, contact our office at [phone] and ask to speak with anurse. After hours, you can call doctors registry at [phone] OR call [facility] at [phone] ask to have the doctor front worker paged. If you consider this an emergency, dial 9-1-6 or go to your nearest emergency department. NEED HELP? Are you dealing with a violent or abusive relationship? Are you a victim of rape or sexual assult? Call [facility] ([place]) 24 hour Crisis Hotline: 598.237.1332 or 163-075-2621. MANUAL Your Guide to a Healthy manual is now on-line. Visit [email or web address] to download your free copy documented in this encounterCoshocton Regional Medical Center10-03-2023 Miscellaneous Notes* Telephone Encounter - Siomara Lanza APRN.CNP - 12/08/2022 9:27 AM EDT Orders filed. Siomara Lanza APRN.CNP * Telephone Encounter - Maruim Patel RN - 12/08/2022 8:54 AM EDT Please file. documented in this encounterCoshocton Regional Medical Center09-21-2023 Miscellaneous Notes* Telephone Encounter - Jazmine Burch [...] Please add to OB record. Siomara Lanza APRN.R[place]SE[place]T documented in this encounterCoshocton Regional Medical Center08-22-2022 History of Present illness Narrative* Siomara Lanza [...] OB History No obstetric history on file. 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 Siomara Lanza APRN.CNP I spent a total of 20 minutes on the date of the service which included preparing to see the patient, [id number] patient care, completing clinical documentation, obtaining and/or reviewing separately obtained history, counseling and educating the patient/family/caregiver, and ordering medications, tests, or procedures. documented in this encounterCoshocton Regional Medical Center08-19-2022 Miscellaneous Notes* Telephone Encounter - Darline Cruz RN - 10/24/2021 2:18 PM EDT The following approved medications have been transmitted electronically. Requested Prescriptions Signed Prescriptions Disp Refills norgestimate 0.25 mg-ethinyl estradiol 35 mcg (SPRINTEC) 0.25-35 mg-mcg per tablet 28 tablet 0 Sig: Take 1 tablet by mouth once daily. Authorizing Provider: SIOMARA LANZA Pharm[facility] Information [id number], [place] [address] Darline Cruz RN * Telephone Encounter - Christal Lane [...] patient. Christal Lane RN documented in this encounterCoshocton Regional Medical Center04-26-2022 History of Present illness Narrative* Siomara Lanza [...] encounter diagnosis) RTC: 3 months Siomara Lanza APRN.CNP I spent a total of 25 minutes on the date of the service which included preparing to see the patient, [id number] patient care, completing clinical documentation, obtaining and/or reviewing separately obtained history, counseling and educating the patient/family/caregiver and ordering medications, tests, or procedures. documented in this encounterCoshocton Regional [facility] CenterEvaluwilming[facility] note* Diagnosis Encounter for surveillance of contraceptive pills- Primary Surveillance of previously prescribed contraceptive pill documented in this encounter [facility]* Diagnosis Encounter for surveillance of contraceptive pills- Primary Surveillance of previously prescribed contraceptive pill documented in this encounter [facility]* Diagnosis GBS bacteriuria documented in this encounter [facility]* Diagnosis Nuchal translucency of fetus on ultrasound- Primary Abnormal findings on screening documented in this encounter [facility]* Diagnosis 15 weeks gestation of - Primary state, incidental Encounter for care in first trimester of first documented in this encounter [facility]* Diagnosis 19 weeks gestation of - Primary state, incidental Encounter for supervision of normal first in second trimester Supervision of normal first documented in this encounter [facility]* Diagnosis Encounter for anatomic survey- Primary Encounter for care in first trimester of first 19 weeks gestation of state, incidental documented in this encounter [facility]* Diagnosis Supervision of high risk in second trimester- Primary Unspecified high-risk documented in this encounter [facility]* Diagnosis Supervision of high risk in second trimester- Primary Unspecified high-risk 23 weeks gestation of state, incidental documented in this encounter [facility]* Diagnosis Encounter for follow-up ultrasound of anatomy- Primary 23 weeks gestation of state, incidental documented in this encounter [facility]* Diagnosis Abnormal glucose in , antepartum- Primary Abnormal maternal glucose tolerance, antepartum [facility] Supervision of high risk in third trimester- Primary Unspecified high-risk Abnormal glucose in , antepartum Abnormal maternal glucose tolerance, antepartum 32 weeks gestation of state, incidental documented in this encounter [facility]* Diagnosis Abnormal glucose tolerance in documented in [facility]* Diagnosis 34 weeks gestation of - Primary state, incidental Abnormal glucose tolerance in Supervision of high risk in third trimester Unspecified high-risk documented in this encounter [facility]* Diagnosis 36 weeks gestation of - Primary state, incidental Supervision of high risk in third trimester Unspecified high-risk documented in [facility] encounter [facility]* Diagnosis Supervision of high risk in third trimester- Primary Unspecified high-risk Abnormal glucose tolerance in 37 weeks gestation of state, incidental documented in this encounter [facility]* Diagnosis 38 weeks gestation of - Primary state, incidental Supervision of high risk in third trimester Unspecified high-risk documented in this [facility] Diagnosis Supervision of high risk in third trimester- Primary Unspecified high-risk 39 weeks gestation of state, incidental Abnormal glucose tolerance in Anemia complicating , third trimester documented in this [facility] Diagnosis Onset Date Resolution Status 40 weeks gestation of acute Anemia affecting a cute Encounter for elective induction of labor acute GBS bacteriuria acute High risk teen acu te History of elevated glucose acute (spontaneous vaginal delivery) acute [facility] Work Phone: Evaluation note* Diagnosis care and examination- Primary Routine follow-up Abnormal glucose affecting Constipation, unspecified constipation type Sacral mass Disorders of sacrum [facility] Diagnosis UTI symptoms- Primary Other symptoms involving urinary system [facility] Diagnosis 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 [facility] Diagnosis 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 [facility] Diagnosis 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 [facility] Diagnosis 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 documented in this [facility]* Diagnosis Nodule of soft tissue- Primary Other disorders of soft tissue [facility] in this [facility]* Diagnosis with fetus of unknown gestational age (HCC)- Primary 17 weeks gestation of ([facility]) state, incidental Short interval between pregnancies affecting in second trimester, antepartum (HCC) Late care ([facility]) Insufficient care Encounter for supervision of high risk in second trimester, antepartum ([facility]) Alcohol consumption during in first trimester ([facility]) documented in this encounter [facility] note* Diagnosis Encounter for anatomic survey ([facility])- Primary Encounter for anatomic survey 19 weeks gestation of ([facility]) state, incidental documented in this encounter [facility] note* Diagnosis Encounter for supervision of high risk in second trimester, antepartum ([facility])- Primary 19 weeks gestation of ([facility]) state, incidental Short interval between pregnancies affecting in second trimester, antepartum (HCC) Rubella non-immune status, antepartum ([facility]) Other specified complication, antepartum documented in this encounter [facility] note* Diagnosis Screening for diabetes mellitus- Primary 23 weeks gestation of ([facility]) state, incidental Late care ([facility]) Insufficient care Encounter for supervision of high risk in second trimester, antepartum (HCC) Short interval between pregnancies affecting in second trimester, antepartum ([facility]) documented in this encounter [facility] note* Diagnosis Rubella non-immune status, antepartum ([facility])- Primary Other specified complication, antepartum [facility]* Diagnosis Diarrhea, unspecified type- Primary documented in this encounter [facility] note* Diagnosis Supervision of high risk in third trimester ([facility])- Primary Unspecified high-risk Late care ([facility]) Insufficient care Screening for diabetes mellitus Limited care in third trimester ([facility]) 31 weeks gestation of ([facility]) state, incidental documented in this encounter [facility] noteNo assessment information availableWMercy Health [facility] Work Phone: Evaluation note* Diagnosis Suspected problem with growth not found- Primary Late care (HCC) Insufficient care Limited care in third trimester (HCC) 32 weeks gestation of (HCC) state, incidental Supervision of high risk in third trimester (HCC) Unspecified high-risk [facility] Diagnosis 32 weeks gestation of (HCC)- Primary state, incidental Limited care in third trimester (HCC) Supervision of high risk in third trimester (HCC) Unspecified high-risk [facility] Diagnosis Limited care in third trimester (HCC)- Primary 34 weeks gestation of (HCC) state, incidental Supervision of high risk in third trimester (HCC) Unspecified high-risk documented in this encounter [facility] Author Chuy Moore [facility] Note Date/Time October 14, 2024 1:1 4am [facility] Medical Records Department [address] [place] [address] OB Triage Physician Note 10/14/24 0108 MR#: [id number] Acct: [id number] Name: JIMMY LEMA Rep #:[id number] : 2005 19 From: Chuy Moore DO PCP: Care Physician,No Primary Status :REG CLI Y Location: [place] [id number] HPI - General General Date of Admission: 10/14/24 Date of Service: 10/14/24 Chief Complaint: abdominal pain HPI Narrative JIMMY LEMA, is a 19 F who presents at 33 weeks with diffuse abdominal pain. She states she is very active at work. 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 Her abdomen feels sore and tender, and the pain is worse with movements and coughing. She also had abdominal pain when the baby moves. No falls or trauma. She is certain this pain is not contractions, as it is different than what she was experiencing a few days ago. She has not taken medication for the pain. She has bilateral low back pain as well. No headaches, vision changes, RUQ pain, acid reflux, vaginal bleeding, LOF, nausea, vomiting, fevers, constipation, diarrhea, ctx's. Has only taken 1 dose of her antibiotic for a UTI so far. [facility] Medical History (Updated 10/14/24 @ 01:[address] Chuy Moore DO) Physical exam, pre-employment Anemia Seizures Allergy/AdvReac Type Severity Reaction Status Date / Time No Known Allergies Allergy Verified 10/10/24 15:30 Social History Smoking Status: Never smoker History Elective abortions Hx Para 0 Spontaneous abortions Hx # Term Pregnancies Ectopic pregnancies Hx # Pregnancies Multiple births # of living children Physical Exam Const alert and no apparent distress General Appearance: comfortable HEENT normocephalic Resp normal respiratory effort GI soft to palpation and non-distended GI Narrative: No rebounding, no guarding, no rigidity, minimal diffuse tenderness Assessment & Plan (1) 33 weeks gestation of : (2) Low back pain: (3) Abdominal pain affecting : PLAN: Suspect MSK given lifting and active at work, and pain is minimal and worse with movements. Exam benign and patient comfortable appearing. No other GIor symptoms. Cont prescribed antibiotic and push fluids. Patient accepts Tylenol for the pain. Discussed support belt, warm baths or showers, swimming, Tylenol PRN. Questions answered. Will place on monitor for NST. Likelyokay for discharge home after NST. 10/14/24 0114 <Electronically signed by Chuy Moore DO> Date _ Chuy Moore DO Cosigner Signature (if applicable): Date CC: Dr. Chuy Moore DO; No Primary Care Physician ~ Signed [facility] Work Phone: Reason for referral (narrative)* Diagnostic Procedure Only (Routine) - Authorized Specialty Diagnoses / Procedures Referred By Leeann lane Referred To Contact [facility] Diagnoses 15 weeks gestation of Encounter for care in first trimester of first Procedures OBSTETRIC ULTRASOUND WHI US PREG UTERUS AFTER 1ST TRIMEST GESTATION Raisa Macias MD [address] [place] [address] [facility] [address] [place] [address] Referral ID Status Reason Start Date Expiration Date Visits Requested Visits Authorized [id number] Authorized Auto-Generat ed Referral 3 12/22/2023 1 1 [facility] for referral (narrative)* Diagnostic Procedure Only (Routine) - Authorized Specialty Diagnoses / Procedures Referred By Contac t Referred To Contact [facility] Diagnoses Supervision of high risk in second trimester Procedures OBSTETRIC ULTRASOUND WHI US PREG UTERUS AFTER 1ST TRIMEST GESTATION Raisa Macias MD [address] [address] [facility] [address] [place] [address] Referral ID Status Reason Start Date Expiration Date Visits Requested Visits Authorized [id number] Authorized Auto-Generat ed Referral 3 01/21/2024 1 1 [facility] for referral (narrative)* Diagnostic Procedure Only (Routine) - Closed Specialty Diagnoses / Procedures Referred By Contac t Referred To Contact XR IMAGING Diagnoses Bony abnormality Procedures XR SACRUM/COCCYX 3V AP/LAT RADEX SACRUM & COCCYX MINIMUM 2 VIEWS Diana Velazquez PA-C [address] [place] [address] [place] [address] Referral ID Status Reason Start Date Expiration Date V isits Requested Visits Authorized [id number] Closed Auto-Generate d Referral 04/05/2024 05/05/2025 1 1 [facility] for referral (narrative)* Diagnostic Procedure Only (Routine) - New Request Specialty Diagnoses / Procedures Referred By Contac t Referred To Contact XR IMAGING Diagnoses Bony abnormality Procedures XR LUMBAR GENERAL 3V AP/LAT/L5-S1 RADEX SPINE LUMBOSACRAL 2/3 VIEWS Diana Velazquez PA-C [address] [place] [address] [place] [address] Referral ID Status Reason Start Date Expiration Date Visits Requested Visits Authorized [id number] New Request Auto-Generat ed Referral 04/14/2024 05/14/2025 1 1 * Consult, Test, Treat (Routine) - Authorized Specialty Diagnoses / Procedures Referred By Leeann lane Referred To Contact [facility] [place] Diagnoses Bony abnormality Procedures CONSULT TO [facility] OFFICE/OUTPATIENT [facility] 60 MINUTES Diana Velazquez PA-C [address] [place] [address] Referral ID Status Reason Start Date Expiration Date Visits Requested Visits Authorized [id number] Authorized PCP Requested Referral 04/14/2024 04/14/2025 1 1 [facility])No reason for referral information availableWMercy Health St[facility] Work Phone: Reason for visit Narrative* Diagnostic Procedure Only (Routine) - Closed Specialty Diagnoses / Procedures Referred By Leeann lane Referred To Contact XR IMAGING Diagnoses Bony abnormality Procedures XR SACRUM/COCCYX 3V AP/LAT RADEX SACRUM & COCCYX MINIMUM 2 VIEWS Diana Velazquez PA-C [address] [place] [address] [place] [address] Referral ID Status Reason Start Date Expiration Date V isits Requested Visits Authorized [id number] Closed Auto-Generate d Referral 04/05/2024 05/05/2025 1 1 [facility] Concerns Problem Noted Date Diagnosed Date [...] TERM LABOR October 10, 2024 3:1 2pm Chief Complaint Admit Date R/O PRE TERM LABOR October 10, 2024 3:1 2pm ABDOMINAL PAIN October 14, 2024 12: 48am Reason for Visit Admit Date 32 weeks gestation of October 102024 3:12pm October 10, 2024 3:1 2pm Threatened labor, antepartum Aug ust 2024 3:12pm 33 weeks gestation of October 142024 12:48am Abdominal pain affecting Augus t 2024 12:48am Low back pain October 14, 2024 12: 48am Advance Directives Advance Directive Response Recorded Date/ Time Living Will No June 16, 2023 7:40pm 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 [employer] 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 No June 15 7:40pm Reason for Referral Specialty Diagnoses / Procedures Referred By Leeann lane Referred To Contact Sports Medicine Diagnoses Bony abnormality Transitional vertebrae Procedures CONSULT TO SPORTS MEDICINE OFFICE/OUTPATIENT [facility] 60 MINUTES Diana Velazquez PA-C [address] [place] [address] Referral ID Status Reason Start Date Expiration Date Visits Requested Visits Authorized [id number] Authorized PCP Requested Referral 04/07/2024 04/07/2025 1 1 Summary Purpose Family History No Family History Records FoundNo Family History Records Found Additional Source Comments Source Comments (unrecognize d section and content) In the event this informatio n is protected by the Federal Confidentiality of Alcohol and Drug Abuse Patient Records regulations: The Federal rules restrict any use of the information to criminally investigate or prosecute any alcohol or drug abuse patient.[facility] the event this information is protected by the Federal Confidentiality of Alcohol and Drug Abuse Patient Records regulations: The Federal rules restrict any use of the information to criminally investigate or prosecute any alcohol or drug abuse patient.[facility] Center[facility] the event this information is protected by the Federal Confidentiality of Alcohol and Drug Abuse Patient Records regulations: The Federal rules restrict any use of the information to criminally investigate or prosecute any alcohol or drug abuse patient.[facility] Center[facility] the event this information is protected by the Federal Confidentiality of Alcohol and Drug Abuse Patient Records regulations: The Federal rules restrict any use of the information to criminally investigate or prosecute any alcohol or drug abuse patient.[facility] the event this information is protected by the Federal Confidentiality of Alcohol and Drug Abuse Patient Records regulations: The Federal rules restrict any use of the information to criminally investigate or prosecute any alcohol or drug abuse patient.[facility] Center[facility] the event this information is protected by the Federal Confidentiality of Alcohol and Drug Abuse Patient Records regulations: The Federal rules restrict any use of the information to criminally investigate or prosecute any alcohol or drug abuse patient.[facility] Center[facility] the event this information is protected by the Federal Confidentiality of Alcohol and Drug Abuse Patient Records regulations: The Federal rules restrict any use of the information to criminally investigate or prosecute any alcohol or drug abuse patient.[facility] Center[facility] the event this information is protected by the Federal Confidentiality of Alcohol and Drug Abuse Patient Records regulations: The Federal rules restrict any use of the information to criminally investigate or prosecute any alcohol or drug abuse patient.[facility] the event this information is protected by the Federal Confidentiality of Alcohol and Drug Abuse Patient Records regulations: The Federal rules restrict any use of the information to criminally investigate or prosecute any alcohol or drug abuse patient.[facility] CenterIn the event this information is protected by the Federal Confidentiality of Alcohol and Drug Abuse Patient Records regulations: The Federal rules restrict any use of the information to criminally investigate or prosecute any alcohol or drug abuse patient.[facility] CenterIn the event this information is protected by the Federal Confidentiality of Alcohol and Drug Abuse Patient Records regulations: The Federal rules restrict any use of the information to criminally investigate or prosecute any alcohol or drug abuse patient.[facility] Center[facility] the event this information is protected by the Federal Confidentiality of Alcohol and Drug Abuse Patient Records regulations: The Federal rules restrict any use of the information to criminally investigate or prosecute any alcohol or drug abuse patient.[facility] Center[facility] the event this information is protected by the Federal Confidentiality of Alcohol and Drug Abuse Patient Records regulations: The Federal rules restrict any use of the information to criminally investigate or prosecute any alcohol or drug abuse patient.[facility] CenterIn the event this information is protected by the Federal Confidentiality of Alcohol and Drug Abuse Patient Records regulations: The Federal rules restrict any use of the information to criminally investigate or prosecute any alcohol or drug abuse patient.[facility] CenterIn the event this information is protected by the Federal Confidentiality of Alcohol and Drug Abuse Patient Records regulations: The Federal rules restrict any use of the information to criminally investigate or prosecute any alcohol or drug abuse patient.[facility] CenterIn the event this information is protected by the Federal Confidentiality of Alcohol and Drug Abuse Patient Records regulations: The Federal rules restrict any use of the information to criminally investigate or prosecute any alcohol or drug abuse patient.[facility] CenterIn the event this information is protected by the Federal Confidentiality of Alcohol and Drug Abuse Patient Records regulations: The Federal rules restrict any use of the information to criminally investigate or prosecute any alcohol or drug abuse patient.[facility] CenterIn the event this information is protected by the Federal Confidentiality of Alcohol and Drug Abuse Patient Records regulations: The Federal rules restrict any use of the information to criminally investigate or prosecute any alcohol or drug abuse patient.[facility] Center[facility] the event this information is protected by the Federal Confidentiality of Alcohol and Drug Abuse Patient Records regulations: The Federal rules restrict any use of the information to criminally investigate or prosecute any alcohol or drug abuse patient.[facility] the event this information is protected by the Federal Confidentiality of Alcohol and Drug Abuse Patient Records regulations: The Federal rules restrict any use of the information to criminally investigate or prosecute any alcohol or drug abuse patient.[facility] CenterIn the event this information is protected by the Federal Confidentiality of Alcohol and Drug Abuse Patient Records regulations: The Federal rules restrict any use of the information to criminally investigate or prosecute any alcohol or drug abuse patient.[facility] CenterIn the event this information is protected by the Federal Confidentiality of Alcohol and Drug Abuse Patient Records regulations: The Federal rules restrict any use of the information to criminally investigate or prosecute any alcohol or drug abuse patient.[facility] CenterIn the event this information is protected by the Federal Confidentiality of Alcohol and Drug Abuse Patient Records regulations: The Federal rules restrict any use of the information to criminally investigate or prosecute any alcohol or drug abuse patient.[facility] CenterIn the event this information is protected by the Federal Confidentiality of Alcohol and Drug Abuse Patient Records regulations: The Federal rules restrict any use of the information to criminally investigate or prosecute any alcohol or drug abuse patient.[facility] CenterIn the event this information is protected by the Federal Confidentiality of Alcohol and Drug Abuse Patient Records regulations: The Federal rules restrict any use of the information to criminally investigate or prosecute any alcohol or drug abuse patient.[facility]In the event this information is protected by the Federal Confidentiality of Alcohol and Drug Abuse Patient Records regulations: The Federal rules restrict any use of the information to criminally investigate or prosecute any alcohol or drug abuse patient.[facility] CenterIn the event this information is protected by the Federal Confidentiality of Alcohol and Drug Abuse Patient Records regulations: The Federal rules restrict any use of the information to criminally investigate or prosecute any alcohol or drug abuse patient.[facility] CenterIn the event this information is protected by the Federal Confidentiality of Alcohol and Drug Abuse Patient Records regulations: The Federal rules restrict any use of the information to criminally investigate or prosecute any alcohol or drug abuse patient.[facility] CenterIn the event this information is protected by the Federal Confidentiality of Alcohol and Drug Abuse Patient Records regulations: The Federal rules restrict any use of the information to criminally investigate or prosecute any alcohol or drug abuse patient.[facility] CenterIn the event this information is protected by the Federal Confidentiality of Alcohol and Drug Abuse Patient Records regulations: The Federal rules restrict any use of the information to criminally investigate or prosecute any alcohol or drug abuse patient.[facility] CenterIn the event this information is protected by the Federal Confidentiality of Alcohol and Drug Abuse Patient Records regulations: The Federal rules restrict any use of the information to criminally investigate or prosecute any alcohol or drug abuse patient.[facility] the event this information is protected by the Federal Confidentiality of Alcohol and Drug Abuse Patient Records regulations: The Federal rules restrict any use of the information to criminally investigate or prosecute any alcohol or drug abuse patient.[facility] CenterIn the event this information is protected by the Federal Confidentiality of Alcohol and Drug Abuse Patient Records regulations: The Federal rules restrict any use of the information to criminally investigate or prosecute any alcohol or drug abuse patient.[facility] CenterIn the event this information is protected by the Federal Confidentiality of Alcohol and Drug Abuse Patient Records regulations: The Federal rules restrict any use of the information to criminally investigate or prosecute any alcohol or drug abuse patient.[facility] CenterIn the event this information is protected by the Federal Confidentiality of Alcohol and Drug Abuse Patient Records regulations: The Federal rules restrict any use of the information to criminally investigate or prosecute any alcohol or drug abuse patient.[facility] CenterIn the event this information is protected by the Federal Confidentiality of Alcohol and Drug Abuse Patient Records regulations: The Federal rules restrict any use of the information to criminally investigate or prosecute any alcohol or drug abuse patient.[facility] CenterIn the event this information is protected by the Federal Confidentiality of Alcohol and Drug Abuse Patient Records regulations: The Federal rules restrict any use of the information to criminally investigate or prosecute any alcohol or drug abuse patient.[facility] CenterIn the event this information is protected by the Federal Confidentiality of Alcohol and Drug Abuse Patient Records regulations: The Federal rules restrict any use of the information to criminally investigate or prosecute any alcohol or drug abuse patient.[facility] CenterIn the event this information is protected by the Federal Confidentiality of Alcohol and Drug Abuse Patient Records regulations: The Federal rules restrict any use of the information to criminally investigate or prosecute any alcohol or drug abuse patient.[facility] CenterIn the event this information is protected by the Federal Confidentiality of Alcohol and Drug Abuse Patient Records regulations: The Federal rules restrict any use of the information to criminally investigate or prosecute any alcohol or drug abuse patient.[facility] CenterIn the event this information is protected by the Federal Confidentiality of Alcohol and Drug Abuse Patient Records regulations: The Federal rules restrict any use of the information to criminally investigate or prosecute any alcohol or drug abuse patient.[facility] CenterIn the event this information is protected by the Federal Confidentiality of Alcohol and Drug Abuse Patient Records regulations: The Federal rules restrict any use of the information to criminally investigate or prosecute any alcohol or drug abuse patient.[facility] CenterIn the event this information is protected by the Federal Confidentiality of Alcohol and Drug Abuse Patient Records regulations: The Federal rules restrict any use of the information to criminally investigate or prosecute any alcohol or drug abuse patient.[facility] CenterIn the event this information is protected by the Federal Confidentiality of Alcohol and Drug Abuse Patient Records regulations: The Federal rules restrict any use of the information to criminally investigate or prosecute any alcohol or drug abuse patient.[facility] CenterIn the event this information is protected by the Federal Confidentiality of Alcohol and Drug Abuse Patient Records regulations: The Federal rules restrict any use of the information to criminally investigate or prosecute any alcohol or drug abuse patient.[facility] CenterIn the event this information is protected by the Federal Confidentiality of Alcohol and Drug Abuse Patient Records regulations: The Federal rules restrict any use of the information to criminally investigate or prosecute any alcohol or drug abuse patient.[facility] CenterIn the event this information is protected by the Federal Confidentiality of Alcohol and Drug Abuse Patient Records regulations: The Federal rules restrict any use of the information to criminally investigate or prosecute any alcohol or drug abuse patient.[facility] CenterIn the event this information is protected by the Federal Confidentiality of Alcohol and Drug Abuse Patient Records regulations: The Federal rules restrict any use of the information to criminally investigate or prosecute any alcohol or drug abuse patient.[facility] CenterIn the event this information is protected by the Federal Confidentiality of Alcohol and Drug Abuse Patient Records regulations: The Federal rules restrict any use of the information to criminally investigate or prosecute any alcohol or drug abuse patient.[facility] Reason for Visit (unrecogniz ed section and [...] Referred By Leeann lane Referred To Contact [facility] Diagnoses 15 weeks gestation of Encounter for care in first trimester of first Procedures OBSTETRIC ULTRASOUND WHI US PREG UTERUS AFTER 1ST TRIMEST GESTATION Raisa Macias MD [address] [place] [address] [facility] [address] [place] [id number] Referral ID Status Reason Start Date Expiration Date V isits Requested Visits Authorized [id number] Closed Auto-Generate d Referral 12/22/2022 12/22/2023 1 1 Reason Comments Lab Orders Reason Onset Date Comments Care 02/16/2023 Specialty Diagnoses / Procedures Referred By Leeann lane Referred To Contact [facility] Diagnoses Supervision of high risk in second trimester Procedures OBSTETRIC ULTRASOUND WHI US PREG UTERUS AFTER 1ST TRIMEST GESTATION Raisa Macias MD [address] [place] [address] [facility] [address] [place] [address] Referral ID Status Reason Start Date Expiration Date V isits Requested Visits Authorized [id number] Closed Auto-Generate d Referral 01/21/2023 01/21/2024 1 [...] Referred By Leeann lane Referred To Contact [facility] Diagnoses with fetus of unknown gestational age (HCC) Procedures OBSTETRIC ULTRASOUND WHI US PREG UTERUS AFTER 1ST TRIMEST GESTATION Gina Kulkarni APRN.[facility] [address] [place] [address] Phone: tel: fax: [address] [phone] Referral ID Status Reason Start Date Expiration Date V isits Requested Visits Authorized [id number] Closed Auto-Generate d Referral 06/28/2024 06/28/2025 1 1 Reason Onset Date Comments Care 07/12/2024 Reason Onset Date Comments Care 08/11/2024 Reason Comments PRAF Reason Comments Diarrhea x 1 week Reason Onset Date Comments Care 10/05/2024 Specialty Diagnoses / Procedures Referred By Leeann lane Referred To Contact [facility] Diagnoses Late care (HCC) Limited care in third trimester ([facility]) 31 weeks gestation of ([facility]) Supervision of high risk in third trimester ([facility]) Procedures OBSTETRIC ULTRASOUND WHI US PREG UTERUS AFTER 1ST TRIMEST GESTATION Gina Kulkarni APRN.[facility] [address] [place] [address] Phone: tel: fax: [address] [phone] Referral ID Status Reason Start Date Expiration Date V isits Requested Visits Authorized [id number] Closed Auto-Generate d Referral 10/05/2024 10/05/2025 5 1 Reason Onset Date Comments Care 10/16/2024 Reason Comments breast pump Reason Onset Date Comments Care 10/30/2024 Care Teams (unrecognized sec tion and content) Core Drier Relationship Specialty Start Date End Date Diana Velazquez PA-C [address] [facility] [place] [id number] PCP - General Pediatrics 04/30/21 Core Drier Relationship Specialty Start Date End Date Diana Velazquez PA-C [address] [facility] [place] [id number] PCP - General Pediatrics 04/30/21 Core Drier Relationship Specialty Start Date End Date Diana Velazquez PA-C [address] [place] [address] PCP - General Pediatrics 04/30/21 Core Drier Relationship Specialty Start Date End Date Diana Velazquez PA-C [address] [place] [address] PCP - General Pediatrics 04/30/21 Core Drier Relationship Specialty Start Date End Date Diana Velazquez PA-C [address] [place] [address] PCP - General Pediatrics 04/30/21 Core Drier Relationship Specialty Start Date End Date Diana Velazquez PA-C [address] [place] [address] PCP - General Pediatrics 04/30/21 Core Drier Relationship Specialty Start Date End Date Diana Velazquez PA-C [address] [place] [address] PCP - General Pediatrics 04/30/21 Core Drier Relationship Specialty Start Date End Date Diana Velazquez PA-C [address] [place] [address] PCP - General Pediatrics 04/30/21 Core Drier Relationship Specialty Start Date End Date Diana Velazquez PA-C [address] [place] [address] PCP - General Pediatrics 04/30/21 Core Drier Relationship Specialty Start Date End Date Diana Velazquez PA-C [address] [place] [address] PCP - General Pediatrics 04/30/21 Core Drier Relationship Specialty Start Date End Date Diana Velazquez PA-C [address] [place] [address] PCP - General Pediatrics 04/30/21 Core Drier Relationship Specialty Start Date End Date Diana Velazquez PA-C [address] [place] [address] PCP - General Pediatrics 04/30/21 Core Drier Relationship Specialty Start Date End Date Diana Velazquez PA-C [address] [place] [address] PCP - General Pediatrics 04/30/21 Core Drier Relationship Specialty Start Date End Date Diana Velazquez PA-C [address] [place] [address] PCP - General Pediatrics 04/30/21 Core Drier Relationship Specialty Start Date End Date Diana Velazquez PA-C [address] [place] [address] PCP - General Pediatrics 04/30/21 Core Drier Relationship Specialty Start Date End Date Diana Velazquez PA-C PCP - General Pediatrics 04/30/21 Core Drier Relationship Specialty Start Date End Date Diana Velazquez PA-C PCP - General Pediatrics 04/30/21 Core Drier Relationship Specialty Start Date End Date Diana Velazquez PA-C PCP - General Pediatrics 04/30/21 Core Drier Relationship Specialty Start Date End Date Diana Velazquez PA-C PCP - General Pediatrics 04/30/21 Core Drier Relationship Specialty Start Date End Date Diana Velazquez PA-C PCP - General Pediatrics 04/30/21 Team Status: Active Member Role Status Dates Dr. Myesha Cooney MD Family Provider Active No Primary Care Physician Primary Care Provider Active Team Status: Inactive Member Role Status Dates No Primary Care Physician Primary Care Provider Active Dr. Marium Stevenson MD Admit Provider, Attending Pro vider Active Core Drier Relationship Specialty Start Date End Date Diana Velazquez PA-C PCP - General Pediatrics 04/30/21 Core Drier Relationship Specialty Start Date End Date Diana Velazquez PA-C PCP - General Pediatrics 04/30/21 Core Drier Relationship Specialty Start Date End Date Diana Velazquez PA-C PCP - General Pediatrics 04/30/21 Core Drier Relationship Specialty Start Date End Date Diana Velazquez PA-C PCP - General Pediatrics 04/30/21 Core Drier Relationship Specialty Start Date End Date Diana Velazquez PA-C PCP - General Pediatrics 04/30/21 Core Drier Relationship Specialty Start Date End Date Diana Velazquez PA-C PCP - General Pediatrics 04/30/21 Core Drier Relationship Specialty Start Date End Date Diana Velazquez PA-C PCP - General Pediatrics 04/30/21 Core Drier Relationship Specialty Start Date End Date Diana Velazquez PA-C PCP - General Pediatrics 04/30/21 Core Drier Relationship Specialty Start Date End Date Diana Velazquez PA-C PCP - General Pediatrics 04/30/21 Core Drier Relationship Specialty Start Date End Date Diana Velazquez PA-C PCP - General Pediatrics 04/30/21 Core Drier Relationship Specialty Start Date End Date Diana Velazquez PA-C PCP - General Pediatrics 04/30/21 Core Drier Relationship Specialty Start Date End Date Diana Velazquez PA-C PCP - General Pediatrics 04/30/21 Core Drier Relationship Specialty Start Date End Date Diana Velazquez PA-C PCP - General Pediatrics 04/30/21 Core Drier Relationship Specialty Start Date End Date Diana Velazquez PA-C PCP - General Pediatrics 04/30/21 Team Status: Active Member Role/Relationship Status Dates Dr. Myesha Cooney MD Family Provider Active No Primary Care Physician Primary Care Provider Active Team Status: Inactive Member Role/Relationship Status Dates No Primary Care Physician Primary Care Provider Active Start: October 10, 2024 End: October 10, 2024 Dr. Esme Jordan MD Attending Provider Active Start: October 10, 2024 End: October 10, 2024 Dr. Esme Jordan MD Referring Provider Active Start: October 10, 2024 End: October 10, 2024 Team Status: Inactive Member Role/Relationship Status Dates No Primary Care Physician Primary Care Provider Active Start: October 14, 2024 End: October 14, 2024 Radha Manrique CNM Attending Provider Active St art: October 14, 2024 End: October 14, 2024 Goals (unrecognized section and content) Goals may be documented in a n alternate sectionGoals may be documented in an alternate section INFORMATION SOURCE (unrecogn ized section and content) DATE CREATED AUTHOR 10/21/2024 [facility] DATE CREATED AUTHOR 'S RICK ATCE 10/31/2024 [facility] FOR RECORDS PERTAINING TO PATIENTS WHO ARE [...] BE BASED ON THE PRIMARY CLINICAL RECORDS. [employer] provides no warranty or guarantee of the accuracy or completeness of information in this document.
[2024-11-05 11:35] VITALS: BMI 24.4
[2024-11-05 11:38] VITALS: BP 123/81; PULSE 102; PULSE 88; RESP 18; TEMP 36.8; O2SAT 98
[2024-11-05 11:39] VITALS: PULSE 99; O2SAT 97
[2024-11-05 11:58] LABS: ROM Internal Control Test YES-OK TO RESULT pt. (Internal QC); ROM Patient Test Negative (Negative); Record Kit Lot#, ROM+ K3358
--- NOTE | 2024-11-05 12:41 | OB.TRI.NOTE ---
HPI - General HPI Narrative JIMMY LEMA, is a 19 F who presents at 35 weeks with complaint of contractions PFSH PFSH Medical History (Updated 11/05/24 @ 12:45 by Radha Manrique CNM) Physical exam, pre-employment Anemia Seizures Allergy/AdvReac Type Severity Reaction Status Date / Time No Known Allergies Allergy Verified 11/05/24 11:35 Social History Smoking Status: Never smoker History Elective abortions Hx Para 0 Spontaneous abortions Hx # Term Pregnancies Ectopic pregnancies Hx # Pregnancies Multiple births # of living children ROS Constitutional Constitutional: Reports systems reviewed and no addt'l complaints, except as documented; Denies headache(s) Eyes Eyes: Denies acute decrease in peripheral vision, blurry vision or change in vision ENT HEENT: Reports systems reviewed and no addt'l complaints, except as documented Cardiovascular Cardiovascular: Denies chest pain or dizziness Respiratory/Chest Respiratory/Chest: Denies cough, dyspnea, dyspnea on exertion, shortness of breath at rest or shortness of breath with exertion Gastrointestinal Gastrointestinal: Denies abdominal pain, diarrhea, nausea or vomiting Genitourinary Genitourinary: Denies abdominal discomfort Musculoskeletal Musculoskeletal: Denies limited range of motion Integumentary Integumentary: Reports systems reviewed and no addt'l complaints, except as documented Neurologic Neurologic: Reports systems reviewed and no addt'l complaints, except as documented Psychiatric Psychiatric: Reports systems reviewed and no addt'l complaints, except as documented Endocrine Endocrinology: Reports systems reviewed and no addt'l complaints, except as documented Hematologic/Lymphatic Hematologic/Lymphatic: Reports systems reviewed and no addt'l complaints, except as documented Allergic/Immunologic Allergic/Immunologic: Reports systems reviewed and no addt'l complaints, except as documented Physical Exam Const alert and oriented x3 General Appearance: cooperative Orientation / Consciousness: awake, oriented to person, oriented to place and oriented to time Exam Limitations: no limitations HEENT normocephalic Head and Scalp: normal to inspection, normocephalic and atraumatic Face and Sinus: normal facial exam Eyes General Eye: normal appearance of both eyes Neck full ROM Chest Chest: symmetrical chest wall rise GI normal to inspection, nondistended, normoactive bowel sounds and non-tender Back/Spine normal ROM Extremity normal to inspection and full ROM Skin no rashes or lesions noted Neuro oriented x3, CN's II-XII intact bilaterally and moves all extremities Sensorium / Orientation: awake, alert and oriented to person NST FHR Rate Baby A Baseline: 145 Variability:: Moderate Accelerations:: 15 x 15 Decelerations:: None NST Reactive:: Yes Uterine Activity:: Irregular and mild Assessment & Plan (1) Abdominal pain affecting : (2) 35 weeks gestation of : (3) Vaginal discharge: PLAN: Plan 1) ROM plus negative 2) No active labor or contractions 3) No cervical change with exam 4) Reactive NST 5) D/C home, information provided on PTL precautions and when to call.
== END 2024-11-05 12:44 | disposition home or self-care (01) ==
LOC: WPOUT 11:17 → WP 11:18
PROVIDERS: Visit Provider Advanced Practice Midwife
DX: O99.891 Other specified diseases and conditions complicating pregnancy (principal); N89.8 Other specified noninflammatory disorders of vagina; Z3A.35 35 weeks gestation of pregnancy; R10.9 Unspecified abdominal pain
CPT/HCPCS: 59025; 59050; 84112; 99221; G0378

== ENCOUNTER 2024-11-09 17:15 | Outpatient (CLI) | payer MEDICAID, SELFPAY ==
[2024-11-09 17:36] VITALS: BP 118/76; PULSE 77
[2024-11-09 17:39] VITALS: BP 118/76; PULSE 77; RESP 16; TEMP 37.1
[2024-11-09 17:54] VITALS: BMI 24.2
--- NOTE | 2024-11-09 18:14 | OB.TRI.NOTE ---
HPI - General General Date of Admission: 11/09/24 Date of Service: 11/09/24 Chief Complaint: NST HPI Narrative JIMMY LEMA, is a 19 F who presents from the office for an NST. Infrequent skip in heart rate noted on doppler. Patient has no complaints. [facility] Medical History (Updated 11/09/24 @ 18:[address] Lois Moore, DO) Physical exam, pre-employment Anemia Seizures Allergy/AdvReac Type Severity Reaction Status Date / Time No Known Allergies Allergy Verified 11/05/24 11:35 Social History Smoking Status: Never smoker History Elective abortions Hx Para 0 Spontaneous abortions Hx # Term Pregnancies Ectopic pregnancies Hx # Pregnancies Multiple births # of living children NST FHR Rate Baby A Baseline: 140 Variability:: Moderate Accelerations:: 15 x 15 Decelerations:: None NST Reactive:: Yes FHR Category:: Category I Assessment & Plan (1) 36 weeks gestation of : (2) arrhythmia affecting , antepartum: PLAN: Infrequent and noted on doppler in the office. FHT was mostly 140 bpm in the office. NST reactive and reassuring. Will schedule her for an ultrasound in the office and follow up.
== END 2024-11-09 18:16 | disposition home or self-care (01) ==
LOC: WPOUT 17:18 → WP 17:19
PROVIDERS: Referring Provider Obstetrics & Gynecology; Visit Provider Obstetrics & Gynecology
DX: O36.8330 Maternal care for abnormalities of the fetal heart rate or rhythm, third trimester, not applicable or unspecified (principal); Z3A.36 36 weeks gestation of pregnancy
CPT/HCPCS: 59025; 99221; G0378

== ENCOUNTER 2024-11-13 18:00 | Outpatient (CLI) | payer MEDICAID, SELFPAY ==
[2024-11-13 18:12] VITALS: BP 123/83; PULSE 91; BMI 24.4
[2024-11-13 18:13] VITALS: RESP 15; TEMP 36.8; O2SAT 99
[2024-11-13 19:34] VITALS: BP 129/77; PULSE 84; RESP 16; TEMP 36.7
[2024-11-13 19:56] LABS: ROM Internal Control Test YES-OK TO RESULT pt. (Internal QC); ROM Patient Test Negative (Negative); Record Kit Lot#, ROM+ K3358
--- NOTE | 2024-11-15 16:50 | OB.TRI.HP_ITS ---
HPI - General General Date of Admission: 11/13/24 Date of Service: 11/13/24 Chief Complaint: vaginal discharge in HPI Narrative JIMMY LEMA, is a 19 F who presents w/ vaginal discharge, rule out rupture of membranes Maternal Data Information Final JEFFERY: 12/05/24 Gestational age: 36 6/7 [facility] Medical History (Updated 11/15/24 @ 16:[address] Gemma Reaves MD) Physical exam, pre-employment Anemia Seizures Home Medications ?Medication ?Instructions ?Recorded ?Last Taken ?Type vit no.95-ferrous 1 tab PO DAILY 11/13/2410/30 10:00 History fumarate 28 mg-folic acid 800 mcg tablet () Allergy/AdvReac Type Severity Reaction Status Date / Time No Known Allergies Allergy Verified 11/13/24 18:14 Social History Smoking Status: Never smoker History Elective abortions Hx Para 0 Spontaneous abortions Hx # Term Pregnancies Ectopic pregnancies Hx # Pregnancies Multiple births # of living children NST FHR Rate Baby A Baseline: 130 Variability:: Moderate Accelerations:: 15 x 15 Decelerations:: None NST Reactive:: Yes Uterine Activity:: irreg ctxs Assessment & Plan (1) 36 weeks gestation of : COMMENT: no evidence of SROM or PTL. F/u in office as scheduled or prn (2) Vaginal discharge during in third trimester: (3) High risk multigravida in third trimester:
--- NOTE | 2024-11-22 05:54 | OB.TRI.NOTE ---
HPI - General General Date of Admission: 11/13/24 Date of Service: 11/13/24 Chief Complaint: vaginal discharge in HPI Narrative JIMMY LEMA, is a 19 F who presents for possible rupture of membranes. at 36w6d [facility] Medical History (Updated 11/15/24 @ 16:[address] Gemma Reaves MD) Physical exam, pre-employment Anemia Seizures Home Medications ?Medication ?Instructions ?Recorded ?Last Taken ?Type vit no.95-ferrous 1 tab PO DAILY 11/13/24 11/13/24 10:00 History fumarate 28 mg-folic acid 800 mcg tablet () Allergy/AdvReac Type Severity Reaction Status Date / Time No Known Allergies Allergy Verified 11/13/24 18:14 Social History Smoking Status: Never smoker History Elective abortions Hx Para 0 Spontaneous abortions Hx # Term Pregnancies Ectopic pregnancies Hx # Pregnancies Multiple births # of living children NST FHR Rate Baby A Baseline: 135 Variability:: Moderate Accelerations:: 15 x 15 Decelerations:: None NST Reactive:: Yes Assessment & Plan (1) Vaginal discharge: PLAN: Plan 1) ROM plus negative 2) No active labor 3) D/C home
== END 2024-11-13 20:20 | disposition home or self-care (01) ==
LOC: WPOUT 18:09 → WP 18:10
PROVIDERS: Visit Provider Advanced Practice Midwife
DX: O99.891 Other specified diseases and conditions complicating pregnancy (principal); N89.8 Other specified noninflammatory disorders of vagina; Z3A.36 36 weeks gestation of pregnancy
CPT/HCPCS: 59025; 59050; 84112; 99221; G0378

== ENCOUNTER 2024-11-28 07:34 | Inpatient (IN) | payer MEDICAID, SELFPAY ==
[2024-11-28] VITALS (41 sets, daily range): BP systolic 105–135; BP diastolic 61–91; PULSE 63–104; RESP 16; TEMP 36–37.1; O2SAT 96–100; BMI 24.5
--- OUTSIDE RECORDS SUMMARY | 2024-11-28 07:11 | XMS RPT_ITS | CCD ---
Author Organization [facility] Care Team Providers Care Gis Developer Name Role Phone Diana Velazquez PA-C Primary Care Provider Unavailable Primary Care Provider Unavailabl e Care Physician, No Primary Primary Care Provider Unavailable Jean Paul WHEATLEY, Dr. Menendez Attending Provider Dr. Esme Jordan MD Referring Provider [phone] Radha Manrique CNM Attending Provider Gina Kulkarni CNM Attending Provider Gina Kulkarni CNM Referring Provider Dr. Chuy Moore DO Attending Provider Dr. Chuy Moore DO Referring Provider Care Physician, No Primary Referring Unava ilable Care Physician, No Primary Primary Care Unava ilable Carlyle Whittington Attending Unavailable Radha Manrique Attending Unavailable Care Physician, No Primary Primary Care Unava ilable Care Physician, No Primary Primary Care Unava ilable Chuy Moore Referring Unavailable Chuy Moore Attending Unavailable Care Physician, No Primary Primary Care Unava ilable Radha Manrique Attending Unavailable Care Physician, No Primary Primary Care Unava ilable Radha Manrique Attending Unavailable Care Physician, No Primary Primary Care Unava ilable Esme Jordan Referring Unavailable Esme Jordan Attending Unavailable GINA KULKARNI Referring Unavailable PAULINA CHADWICK Attending Unavailable MARCUS, DIANA Primary Care Unavailable GINA KULKARNI Referring Unavailable MARCUS, DIANA Primary Care Unavailable MARCUS, DIANA Primary Care Unavailable GINA KULKARNI Attending Unavailable GINA KULKARNI Attending Unavailable TEETEE JOHNSTON Attending Unavail able WISWELL, CHUY Referring Unavailable WISWELL, CHUY Referring Unavailable WISWELL, CHUY Attending Unavailable PLOTTS, GINA Referring Unavailable WISWELL, CHUY Attending Unavailable PLOTTS, GINA Referring Unavailable MARIUM STEVENSON Attending Unavailable PLOTTS, GINA Referring Unavailable PLOTTS, GINA Attending Unavailable CRISTA VASQUEZ Attending Unavailable VELAZQUEZ, DIANA Primary Care Unavailable VELAZQUEZ, DIANA Referring Unavailable VELAZQUEZ, DIANA Attending Unavailable VELAZQUEZ, DIANA Primary Care Unavailable VELAZQUEZ, DIANA Primary Care Unavailable POOL, SIOMARA Referring Unavailable VELAZQUEZ, DIANA Primary Care Unavailable PLOTTS, GINA Referring Unavailable VELAZQUEZ, DIANA Primary Care Unavailable PLOTTS, GINA Attending Unavailable Medications Current Medications Medication Drug [...] Comment on above: Take 1 capsule by [facility] three times daily for 5 days. aspirin 81 mg delayed release oral tablet (19 sources) Platelet Aggregation Inhibitor, Nonsteroidal Anti-inflammatory Drug Start: 06-28-2024 take 1 tablet by mouth once daily Blood-Glucose Meter (8 sources) Start: 10-11-2024 Blood-Glucose Meter Indications: Limited [...] (5 sources) Progestin, Estrogen Start: 2 End: take 1 tablet by mouth once daily [...] 325 mg oral tablet (20 sources) Start: 11-09-2024 take 1 tablet by mouth every other day ferrous sulfate 325 mg (65 mg iron) tablet Indications: 36 weeks gestation of (HCC) , Anemia complicating , third trimester (HCC) Take 1 tablet by mouth every other day. 30 tablet 1 11/09/2024 Active Start: 03-16-2023 End: 06-28-2024 take 1 tablet [...] 7 days. 14 capsule 03/16/2024 03/23/2024 Active Pnv No.95-Ferrous Fumarate-Fa () 28 mg iron- 800 mcg tablet (1 source) Start: 11-14-19 Pnv No.95-Ferrous Fumarate-Fa () 28 mg iron- 800 mcg tablet Active 1 {tbl} PO DAILY November 13, 2024 12:00am PNV no.95/ferrous fum/folic ac ( ORAL) (20 sources) PNV no.95/ferrou s fum/folic ac ( ORAL) Take by mouth. Active PNV no.95/ferrou s fum/folic ac ( ORAL) Take by mouth. 0 Active Completed/Discontinued Medications Medication Drug Class(es) Dates Sig (Normalized) Sig (Original) acetaminophen 500 mg oral tablet (20 sources) Start: 06-18-2023 End: 07-12-2024 take 2 [...] as needed for Pain 1-10 Or Fever June 18, 2023 12:00am October 10, 2024 3:30pm Start: 06-18-2023 take 1000 mg by mout h every six hours as needed Acetaminophen Active 1000 MG PO EVERY 6 HOURS NEEDED June 18, 2023 12:00am Desogestrel / Ethinyl [...] once daily. ibuprofen 600 mg oral tablet (18 sources) Nonsteroidal Anti-inflammatory Drug Start: 06-18-2023 End: [...] abdominal pain; Translations: [Unspecified abdominal pain] Onset: 11-07-2024 Episodic Contraceptive and procreative management (2 sources) Oral contraception; Translations: [Encounter for surveillance of contraceptive pills] Episodic Early or threatened labor (9 sources) False labor before 37 completed weeks of gestation; Translations: [False labor before 37 completed weeks of gestation, unspecified trimester] Onset: 10-19-2024 10-10-2024 Episodic Other complications of (20 sources) Anemia in mother complicating , childbirth AND/OR puerperium; Translations: [Anemia complicating , third trimester] Onset: 03-16-2023 Resolved: 06-28-2024 04-06-2023 Chronic Other complications of (6 sources) Anemia of ; Translations: [Anemia complicating , unspecified trimester] 06-16-2023 Chronic Other complications of (1 source) Anemia complicating , unspecified trimester; Translations: [Anemia of mother, unspecified as to episode of care or not applicable] 06-18-2023 Chronic Other complications of (1 source) Anemia complicating , third trimester; Translations: [Anemia complicating , third trimester (HCC)] Onset: 10-31-2024 Chronic Other complications of (20 sources) High risk ; Translations: [Supervision of high risk , unspecified, second trimester] Onset: 06-28-2024 01-21-2023 Episodic Other complications of (1 source) Supervision of other high risk pregnancies, unspecified trimester; Translations: [Supervision of other high-risk ] 06-18-2023 Episodic Other complications of (2 sources) Gestational age unknown 06-28-2024 Episodic Other complications of (7 sources) care status; Translations: [Supervision of with insufficient care, third trimester] 10-05-2024 Episodic Other complications of (11 sources) Abdominal pain in ; Translations: [Other specified related conditions, unspecified trimester] 10-14-2024 Episodic Other complications of (6 sources) condition affecting obstetrical care of mother; Translations: [Maternal care for abnormalities of the heart rate or rhythm, unspecified trimester, not applicable or unspecified] 11-09-2024 Episodic Other complications of (2 sources) Maternal care for abnormalities of the heart rate or rhythm, unspecified trimester, not applicable or unspecified; Translations: [Maternal care for abnormalities of the heart rate or rhythm, unspecified trimester, not applicable or unspecified] Onset: 11-09-2024 Episodic Other complications of (1 source) Other specified related conditions, unspecified trimester; Translations: [Other specified related conditions, unspecified trimester] Onset: 11-07-2024 Episodic Other complications of (1 source) Supervision of with insufficient care, third trimester; Translations: [Limited care in third trimester (HCC)] Onset: 11-23-2024 Episodic Other complications of (1 source) Supervision [...] disorders] 04-14-2024 Episodic Other connective tissue disease (5 sources) Pain in upper limb; Translations: [Pain in arm, unspecified] 06-18-2023 Episodic Other female genital disorders (6 sources) Vaginal discharge; Translations: [Other specified noninflammatory disorders of vagina] 11-05-2024 Episodic Other female genital disorders (1 source) Other specified noninflammatory disorders of vagina; Translations: [Other specified noninflammatory disorders of vagina] Onset: 11-07-2024 Episodic Other gastrointestinal disorders (1 source) Constipation; Translations: [Constipation, unspecified] 07-29-2023 Episodic Other gastrointestinal disorders (1 source) Diarrhea; Translations: [Diarrhea, unspecified] 09-17-2024 Episodic Other gastrointestinal disorders (1 source) Diarrhea, unspecified; Translations: [Diarrhea, unspecified type] Onset: 09-17-2024 Episodic Other nutritional; endocrine; and metabolic disorders (6 sources) History of clinical finding in subject; [...] conditions (not mental disorders or infectious disease) (11 sources) ultrasound increased nuchal translucency; Translations: [Encounter [...] of ] 02-16-2023 Episodic Residual codes; unclassified (11 sources) Gestation period, 32 weeks; Translations: [32 weeks gestation of ] 04-20-2023 Episodic Residual codes; unclassified (2 sources) Gestation period, 34 weeks; Translations: [34 weeks gestation of ] 05-04-2023 Episodic Residual codes; unclassified (6 sources) Gestation period, 36 weeks; Translations: [36 weeks gestation of ] 05-18-2023 Episodic Residual codes; unclassified (3 sources) Gestation period, 37 weeks; Translations: [37 weeks gestation of ] 05-25-2023 Episodic Residual codes; unclassified (1 source) Gestation period, 38 weeks; Translations: [38 weeks gestation of ] 06-01-2023 Episodic Residual codes; unclassified (1 source) Gestation period, 39 weeks; Translations: [39 weeks gestation of ] 06-08-2023 Episodic Residual codes; unclassified (6 sources) Gestation period, 40 weeks; Translations: [40 [...] of ] 10-05-2024 Episodic Residual codes; unclassified (8 sources) Gestation period, 33 weeks; Translations: [33 weeks gestation of ] 10-14-2024 Episodic Residual codes; unclassified (6 sources) Gestation period, 35 weeks; Translations: [35 weeks gestation of ] 11-05-2024 Episodic Residual codes; unclassified (2 sources) 36 weeks gestation of ; Translations: [36 weeks gestation of ] Onset: 11-09-2024 Episodic Residual codes; unclassified (1 source) 35 weeks gestation of ; Translations: [35 weeks gestation of ] Onset: 11-07-2024 Episodic Residual codes; unclassified (1 source) 38 weeks gestation of ; Translations: [38 weeks gestation of (HCC)] Onset: 11-23-2024 Episodic Residual codes; unclassified (1 source) 37 weeks gestation of ; Translations: [37 weeks gestation of (HCC)] Onset: 11-17-2024 Episodic Residual codes; unclassified (1 source) 34 weeks gestation of ; Translations: [34 weeks gestation of (HCC)] Onset: 10-30-2024 Episodic Residual codes; unclassified (1 source) 32 weeks gestation of ; Translations: [32 weeks gestation of (HCC)] Onset: 10-16-2024 Episodic Residual codes; unclassified (1 source) 31 weeks gestation of ; Translations: [31 weeks gestation of (HCC)] Onset: 10-16-2024 Episodic Spondylosis; intervertebral disc disorders; other back problems (9 sources) Sacrococcygeal disorders, not elsewhere classified; Translations: [Disorders of sacrum] 07-29-2023 Episodic Unclassified (19 sources) [facility] Education - COMMON Onset: 06-28-2024 06-28-2024 Unclassified (19 sources) Education - [place] Onset: 06-28-2024 06-28-2024 Urinary tract infections (8 sources) Urinary tract infection caused by Enterococcus; Translations: [Urinary tract infection, site not specified] Onset: 10-12-2024 10-12-2024 Episodic Past or Other Problems Problem Classification Problem Date Documented Da te Episodic/Chronic Administrative/social admission (6 sources) Patient encounter status; Translations: [Encounter for pre-employment examination] Onset: 12-01-2023 12-01-2023 Episodic Alcohol-related disorders (20 sources) Alcohol consumption during ; Translations: [Alcohol [...] 11-26-2022 Episodic Other complications of (20 sources) Late entry into care; Translations: [Supervision of with insufficient care, unspecified trimester] Onset: 06-28-2024 06-28-2024 Episodic Other complications of (20 sources) Rubella non-immune; Translations: [Supervision of other high risk pregnancies, unspecified trimester] Onset: 07-03-2024 07-03-2024 Episodic Other complications of (1 source) Supervision of high risk , unspecified, second trimester; Translations: [Encounter for supervision of high risk in second trimester, antepartum (HCC)] Onset: 07-12-2024 Episodic Other complications of (1 source) Supervision of other high risk pregnancies, second trimester; Translations: [Short interval between pregnancies affecting in second trimester, antepartum (HCC)] Onset: 06-28-2024 Episodic Other complications of (1 source) Supervision of with insufficient care, unspecified trimester; Translations: [Late care (HCC)] Onset: 06-28-2024 Episodic Other and delivery including normal (20 sources) Teenage ; Translations: [Encounter for supervision of normal first , first trimester] Onset: 11-24-2022 11-24-2022 Episodic Residual codes; unclassified (1 source) 23 weeks gestation of ; Translations: [23 weeks gestation of (HCC)] Onset: 08-11-2024 Episodic Residual codes; unclassified (1 source) 19 weeks gestation of ; Translations: [19 weeks gestation of (HCC)] Onset: 07-12-2024 Episodic Residual codes; unclassified (1 source) 17 weeks gestation of ; Translations: [17 weeks gestation of (HCC)] Onset: 06-28-2024 Episodic Results Test Name Value Interpretation Reference Range Facility OB Triage Physician Noteon 0 11-22-[address] [facility] Medical Records Department [address] [place] [address] OB Triage Physician Note 11/22/24 0554 MR#: [id number] Acct: [id number] Name: JIMMY LEMA Rep #: [id number] : 2005 19 From: Radha Manrique CNM PCP: Care Physician,No Primary Status:DEP CLI Y Location: [facility] HPI - General General Date of Admission: 11/13/24 Date of Service: 11/13/24 Chief Complaint: vaginal discharge in HPI Narrative JIMMY LEMA, is a 19 F who presents for possible rupture of membranes. at 36w6d [facility] Medical History (Updated 11/15/24 @ 16:[address] Esme Jordan MD) Physical exam, pre-employment Anemia Seizures Home Medications ???Medication ???Instructions ???Recorded ???Last Taken ???Type vit no.95-ferrous 1 tab PO DAILY 11/13/24 11/13/24 1 0:00 History fumarate 28 mg-folic acid 800 mcg tablet () Allergy/AdvReac Type Severity Reaction Status Date / Time No Known Allergies Allergy Verified 11/13/24 18:14 Social History Smoking Status: Never smoker History Elective abortions Hx Para 0 Spontaneous abortions Hx # Term Pregnancies Ectopic pregnancies Hx # Pregnancies Multiple births # of living children NST FHR Rate Baby A Baseline: 135 Variability:: Moderate Accelerations:: 15 x 15 Decelerations:: None NST Reactive:: Yes Assessment Plan (1) Vaginal discharge: PLAN: Plan 1) ROM plus negative 2) No active labor 3) D/C home 11/22/24 0556 Date Radha Manrique CNM Cosigner Signature (if applicable): Date _ CC: ARELIS Manrique; No Primary Care Physician Signed Normal [facility] Examination level ultrasound on 11-17-2024 [facility] Radiology Study observation (narrative) [facility] OB Triage Physician Noteon 0 11-15-[address] [facility] Medical Records Department [address] [address] [facility] [place] [address] OB Triage Physician Note 11/15/24 1650 MR#: [id number] Acct: [id number] Name: JIMMY LEMA Rep #: [id number] : 2005 19 From: Esme Jordan MD PCP: Care Physician,No Primary Status:DEP CLI Y Location: [facility] HPI - General General Date of Admission: 11/13/24 Date of Service: 11/13/24 Chief Complaint: vaginal discharge in HPI Narrative JIMMY LEMA is a 19 F who presents w/ vaginal discharge, rule out rupture of membranes Maternal Data Information Final JEFFERY: 12/05/24 Gestational age: 36 6/7 PFSH PFSH Medical History (Updated 11/15/24 @ 16:[address] Esme Jordan MD) Physical exam, pre-employment Anemia Seizures Home Medications ???Medication ???Instructions ???Recorded ???Last Taken ???Type vit no.95-ferrous 1 tab PO DAILY 11/13/24 11/13/24 1 0:00 History fumarate 28 mg-folic acid 800 mcg tablet () Allergy/AdvReac Type Severity Reaction Status Date / Time No Known Allergies Allergy Verified 11/13/24 18:14 Social History Smoking Status: Never smoker History Elective abortions Hx Para 0 Spontaneous abortions Hx # Term Pregnancies Ectopic pregnancies Hx # Pregnancies Multiple births # of living children NST FHR Rate Baby A Baseline: 130 Variability:: Moderate Accelerations:: 15 x 15 Decelerations:: None NST Reactive:: Yes Uterine Activity:: irreg ctxs Assessment Plan (1) 36 weeks gestation of : COMMENT: no evidence of SROM or PTL. F/u in office as scheduled or prn (2) Vaginal discharge during in third trimester: (3) High risk multigravida in third trimester: 11/15/24 1652 Date Esme Jordan MD Cosigner Signature (if applicable): Date _ CC: Dr. Esme Jordan MD; No Primary Care Physician Signed Normal [facility] ([facility]) Rupture Of Membraneson 11-13-2024 ROM Negative Normal Negative [facility] Comment on above: Result Comment: Amni otic fluid not present indicates No Rupture of Membranes at time of specimen collection. Performed By: #### L 205.1000 #### [facility] Laboratory [address] [place], [address] OB Triage Physician Noteon 0 11-09-[address] [facility] Medical Records Department [address] [place] [address] OB Triage Physician Note 11/09/24 1814 MR#: [id number] Acct: [id number] Name: JIMMY LEMA Rep #: [id number] : 2005 19 From: Chuy Moore DO PCP: Care Physician,No Primary Status:DEP CLI Y Location: [facility] HPI - General General Date of Admission: 11/09/24 Date of Service: 11/09/24 Chief Complaint: NST HPI Narrative JIMMY LEMA, is a 19 F who presents from the office for an NST. Infrequent skip in heart rate noted on doppler. Patient has no complaints. [facility] Medical History (Updated 11/09/24 @ 18:[address] Chuy Moore DO) Physical exam, pre-employment Anemia Seizures Allergy/AdvReac Type Severity Reaction Status Date / Time No Known Allergies Allergy Verified 11/05/24 11:35 Social History Smoking Status: Never smoker History Elective abortions Hx Para 0 Spontaneous abortions Hx # Term Pregnancies Ectopic pregnancies Hx # Pregnancies Multiple births # of living children NST FHR Rate Baby A Baseline: 140 Variability:: Moderate Accelerations:: 15 x 15 Decelerations:: None NST Reactive:: Yes FHR Category:: Category I Assessment Plan (1) 36 weeks gestation of : (2) arrhythmia affecting , antepartum: PLAN: Infrequent and noted on doppler in the office. FHT was mostly 140 bpm in the office. NST reactive and reassuring. Will schedule her for an ultrasound in the office and follow up. 11/09/241816 Date Chuy Moore DO Cosigner Signature (if applicable): Date _ CC: Dr. Chuy Moore DO; No Primary Care Physician Signed Normal [facility] ROUTINE, GROUP B ST REPTOCOCCUS BY PCRon 11-09-2024 ROUTINE, GROUP B STREPTOCOCCUS BY PCR Not detected Normal [facility] Comment on above: Performed By: #### G BPCR ####[facility] LABCLIA [id number] [address] OF [place] URINE OB DIP B/Oon Glucose Ql (U) Negative Neg mg/dL [facility] Interpretation and review of laboratory results Normal [facility] Protein.monoclonal (U) [Mass/Vol] Negative Neg mg/dL [facility] (ROM) Rupture Of Membraneson 11-05-2024 ROM Negative Normal Negative [facility] Comment on above: Result Comment: Amni otic fluid not present indicates No Rupture of Membranes at time of specimen collection. Performed By: #### L 205.1000 #### [facility] Laboratory [address] [place], [address] OB Triage Physician Noteon 0 11-05-[address] [facility] Medical Records Department [address] [place] [address] OB Triage Physician Note 11/05/24 1241 MR#: [id number] Acct: [id number] Name: JIMMY LEMA Rep #: [id number] : 2005 19 From: Radha Manrique CNM PCP: Care Physician,No Primary Status:DEP CLI Y Location: [facility] HPI - General HPI Narrative JIMMY LEMA, is a 19 F who presents at 35 weeks with complaint of contractions PFSH PFSH Medical History (Updated 11/05/24 @ 12:45 by Radha Manrique CNM) Physical exam, pre-employment Anemia Seizures Allergy/AdvReac Type Severity Reaction Status Date / Time No Known Allergies Allergy Verified 11/05/24 11:35 Social History Smoking Status: Never smoker History Elective abortions Hx Para 0 Spontaneous abortions Hx # Term Pregnancies Ectopic pregnancies Hx # Pregnancies Multiple births # of living children ROS Constitutional Constitutional: Reports systems reviewed and no addt'l complaints, except as documented; Denies headache(s) Eyes Eyes: Denies acute decrease in peripheral vision, blurry vision or change in vision ENT HEENT: Reports systems reviewed and no addt'l complaints, except as documented Cardiovascular Cardiovascular: Denies chest pain or dizziness Respiratory/Chest Respiratory/Chest: Denies cough, dyspnea, dyspnea on exertion, shortness of breath at rest or shortness of breath with exertion Gastrointestinal Gastrointestinal: Denies abdominal pain, diarrhea, nausea or vomiting Genitourinary Genitourinary: Denies abdominal discomfort Musculoskeletal Musculoskeletal: Denies limited range of motion Integumentary Integumentary: Reports systems reviewed and no addt'l complaints, except as documented Neurologic Neurologic: Reports systems reviewed and no addt'l complaints, except as documented Psychiatric Psychiatric: Reports systems reviewed and no addt'l complaints, except as documented Endocrine Endocrinology: Reports systems reviewed and no addt'l complaints, except as documented Hematologic/Lymphati c Hematologic/Lymphati c: Reports systems reviewed and no addt'l complaints, except as documented Allergic/Immunologic Allergic/Immunologic : Reports systems reviewed and no addt'l complaints, except as documented Physical Exam Const alert and oriented x3 General Appearance: cooperative Orientation / Consciousness: awake, oriented to person, oriented to place and oriented to time Exam Limitations: no limitations HEENT normocephalic Head and Scalp: normal to inspection, normocephalic and atraumatic Face and Sinus: normal facial exam Eyes General Eye: normal appearance of both eyes Neck full ROM Chest Chest: symmetrical chest wall rise GI normal to inspection, nondistended, normoactive bowel sounds and non-tender Back/Spine normal ROM Extremity normal to inspection and full ROM Skin no rashes or lesions noted Neuro oriented x3, CN's II-XII intact bilaterally and moves all extremities Sensorium / Orientation: awake, alert and oriented to person NST FHR Rate Baby A Baseline: 145 Variability:: Moderate Accelerations:: 15 x 15 Decelerations:: None NST Reactive:: Yes Uterine Activity:: Irregular and mild Assessment Plan (1) Abdominal pain affecting : (2) 35 weeks gestation of : (3) Vaginal discharge: PLAN: Plan 1) ROM plus negative 2) No active labor or contractions 3) No cervical change with exam 4) Reactive NST 5) D/C home, information provided on PTL precautions and when to call. 11/05/24 8743 Date Radha Manrique [facility] Cosigner Signature (if applicable): Date _ CC: ARELIS Manrique; No Primary Care Physician Signed Normal [facility] CBC W Auto Differential pane l (Bld)on 10-30-2024 Basophils (Bld) [#/Vol] 0.05 10*3/uL Normal <0.[address] [facility] Comment on above: Order Comment: Speci men Type: BLOOD SPECIMENOrdering Facility: [facility] Address: [address] [place] [address] Performed By: #### 5 7021-8 ####[facility] MILLJELENAWCLOVISLIA [id number] [place] [address] [place] Basophils/100 WBC (Bld) 0.7 % Normal [facility] Comment on above: Order Comment: Speci men Type: BLOOD SPECIMENOrdering Facility: [facility] Address: [address] [place] [address] Performed By: #### 5 7021-8 ####[facility] [id number] [place] [address] [place] Differential cell count method Nom (Bld) Auto Normal [facility] Comment on above: Order Comment: Speci men Type: BLOOD SPECIMENOrdering Facility: [facility] Address: [address] [place] [address] Performed By: #### 5 7021-8 ####[facility] MILLTOWNCLIA [id number] [place] [address] [place] Eosinophils (Bld) [#/Vol] 0.12 10*3/uL Normal <0.[address] [facility] Comment on above: Order Comment: Speci men Type: BLOOD SPECIMENOrdering Facility: [facility] Address: [address] [place] [address] Performed By: #### 5 7021-8 ####[facility] CENTERLIA [id number] [place] [address] [place] Eosinophils/100 WBC (Bld) 1.6 % Normal [facility] Comment on above: Order Comment: Speci men Type: BLOOD SPECIMENOrdering Facility: [facility] Address: [address] [place] [address] Performed By: #### 5 7021-8 ####[facility] [id number] [place] [address] [place] Erythrocyte distribution width (RBC) [Ratio] 13.5 % Normal 11.5-15.[address] [facility] Comment on above: Order Comment: Speci men Type: BLOOD SPECIMENOrdering Facility: [facility] Address: [address] [place] [address] Performed By: #### 5 7021-8 ####[facility] [id number] [place] [address] [place] Hematocrit (Bld) [Volume fraction] 30.1 % Low 36.0-46.[address] [facility] Comment on above: Order Comment: Speci men Type: BLOOD SPECIMENOrdering Facility: [facility] Address: [address] [place] [address] Performed By: #### 5 7021-8 ####[facility] [id number] [place] [address] [place] Hemoglobin (Bld) [Mass/Vol] 10.0 g/dL Low 11.5-15.[address] [facility] Comment on above: Order Comment: Speci men Type: BLOOD SPECIMENOrdering Facility: [facility] Address: [address] [place] [address] Performed By: #### 5 7021-8 ####[facility]ITALNCLI [id number] [place] [address] [place] Immature granulocytes (Bld) [#/Vol] 0.29 10*3/uL High <0.[address] [facility] Comment on above: Order Comment: Speci men Type: BLOOD SPECIMENOrdering Facility: [facility] Address: [address] [place] [address] Performed By: #### 5 7021-8 ####[facility] [id number] [place] [address] [place] Immature granulocytes/100 WBC (Bld) 3.9 % Normal [facility] Comment on above: Order Comment: Speci men Type: BLOOD SPECIMENOrdering Facility: [facility] Address: [address] [place] [address] Performed By: #### 5 7021-8 ####[facility] [id number] [place] [address] [place] Lymphocytes (Bld) [#/Vol] 1.40 10*3/uL Normal 1.00-4.[address] [facility] Comment on above: Order Comment: Speci men Type: BLOOD SPECIMENOrdering Facility: [facility] Address: [address] [place] [address] Performed By: #### 5 7021-8 ####[facility] [id number] [place] [address] [place] Lymphocytes/100 WBC (Bld) 18.8 % Normal [facility] Comment on above: Order Comment: Speci men Type: BLOOD SPECIMENOrdering Facility: [facility] Address: [address] [place] [address] Performed By: #### 5 7021-8 ####[facility] [id number] [place] [address] [place] MCH (RBC) [Entitic mass] 30.2 pg Normal 26.0-34.[address] [facility] Comment on above: Order Comment: Speci men Type: BLOOD SPECIMENOrdering Facility: [facility] Address: [address] [place] [address] Performed By: #### 5 7021-8 ####[facility] BOBBYNCLIA [id number] [place] [address] [place] MCHC (RBC) [Mass/Vol] 33.2 g/dL Normal 30.5-36.0 [facility] Comment on above: Order Comment: Speci men Type: BLOOD SPECIMENOrdering Facility: [facility] Address: [address] [place] [address] Performed By: #### 5 7021-8 ####[facility] SENGBOWDONNCLIA [id number] [place] [address] [place] MCV (RBC) [Entitic vol] 90.9 fL Normal 80.0-100.0 [facility] Comment on above: Order Comment: Speci men Type: BLOOD SPECIMENOrdering Facility: [facility] Address: [address] [place] [address] Performed By: #### 5 7021-8 ####[facility] SENGBOWDONNCLIA [id number] [place] [address] [place] Monocytes (Bld) [#/Vol] 0.74 10*3/uL Normal <0.[address] [facility] Comment on above: Order Comment: Speci men Type: BLOOD SPECIMENOrdering Facility: [facility] Address: [address] [place] [address] Performed By: #### 5 7021-8 ####[facility] SENGWNCLIA [id number] [place] [address] [place] Monocytes/100 WBC (Bld) 9.9 % Normal [facility] Comment on above: Order Comment: Speci men Type: BLOOD SPECIMENOrdering Facility: [facility] Address: [address] [place] [address] Performed By: #### 5 7021-8 ####[facility]ITALNCLIA [id number] [place] [address] [place] Neutrophils (Bld) [#/Vol] 4.84 10*3/uL Normal 1.45-7.[address] [facility] Comment on above: Order Comment: Speci men Type: BLOOD SPECIMENOrdering Facility: [facility] Address: [address] [place] [address] Performed By: #### 5 7021-8 ####[facility] [id number] [place] [address] [place] Neutrophils/100 WBC (Bld) 65.1 % Normal [facility] Comment on above: Order Comment: Speci men Type: BLOOD SPECIMENOrdering Facility: [facility] Address: [address] [place] [address] Performed By: #### 5 7021-8 ####[facility] [id number] [place] [address] [place] Nucleated RBC (Bld) [#/Vol] 10*3/uL Normal <0.[address] [facility] Comment on above: Order Comment: Speci men Type: BLOOD SPECIMENOrdering Facility: [facility] Address: [address] [place] [address] Performed By: #### 5 7021-8 ####[facility] [id number] [place] [address] [place] Nucleated RBC/100 WBC (Bld) [Ratio] 0.0 /100 WBC Normal [facility] Comment on above: Order Comment: Speci men Type: BLOOD SPECIMENOrdering Facility: [facility] Address: [address] [place] [address] Performed By: #### 5 7021-8 ####[facility]ITALNCLI [id number] [place] [address] [place] Platelet mean volume (Bld) [Entitic vol] 9.8 fL Normal 9.0-12.[address] [facility] Comment on above: Order Comment: Speci men Type: BLOOD SPECIMENOrdering Facility: [facility] Address: [address] [place] [address] Performed By: #### 5 7021-8 ####[facility]ITALNCLIA [id number] [place] [address] [place] Platelets (Bld) [#/Vol] 167 10*3/uL Normal 150-[address] [facility] Comment on above: Order Comment: Speci men Type: BLOOD SPECIMENOrdering Facility: [facility] Address: [address] [place] [address] Performed By: #### 5 7021-8 ####[facility]ITALNCLIA [id number] [place] [address] [place] RBC (Bld) [#/Vol] 3.31 10*6/uL Low 3.90-5.20 [facility] Comment on above: Order Comment: Speci men Type: BLOOD SPECIMENOrdering Facility: [facility] Address: [address] [place] [address] Performed By: #### 5 7021-8 ####[facility]ITALNCLIA [id number] [place] [address] [place] WBC (Bld) [#/Vol] 7.44 10*3/uL Normal 3.70-11.00 [facility] Comment on above: Order Comment: Speci men Type: BLOOD SPECIMENOrdering Facility: [facility] Address: [address] [place] [address] Performed By: #### 5 7021-8 ####[facility]ITALNCLIA [id number] [place] [address] [place] Ferritin SerPl-mCncon 2024 Ferritin [Mass/Vol] 17.4 ng/mL Normal 14.7-205.1 [facility] Comment on above: Order Comment: Speci men Type: BLOOD SPECIMENOrdering Facility: [facility] Address: [address] [place] [address] Performed By: #### 5 0190-8, 2275- ####[facility] LABCLIA [id number] [place] [address] [place] Iron and Iron binding capaci ty panelon 10-30-2024 Iron [Mass/Vol] 56 ug/dL Normal 41-[address] [facility] Comment on above: Order Comment: Speci men Type: BLOOD SPECIMENOrdering Facility: [facility] Address: [address] [place] [address] Performed By: #### 5 0190-8, 2275-06 ####[facility] LABCLIA [id number] [place] [address] [place] Iron binding capacity [Mass/Vol] 521 ug/dL High 232-[address] [facility] Comment on above: Order Comment: Speci men Type: BLOOD SPECIMENOrdering Facility: [facility] Address: [address] [place] [address] Performed By: #### 5 0190-8, 2275-06 ####[facility] LABIA [id number] [place] [address] [place] Iron/TIBC [Molar ratio] 10.7 % Low 15.0-57.0 [facility] Comment on above: Order Comment: Speci men Type: BLOOD SPECIMENOrdering Facility: [facility] Address: [address] [place] [address] Performed By: #### 5 0190-8, 2275-06 ####[facility] LABIA [id number] [place] [address] [place] Reagin and Treponema pallidu m IgG and IgM [Interp]on 10-30-2024 T. pallidum IgG+IgM IA Ql (S) Non-Reactive Normal Nonreactive [facility] Comment on above: Order Comment: Speci men Type: BLOOD SPECIMENOrdering Facility: [facility] Address: [address] [place] [address] Performed By: #### 7 3752-8 ####[facility] LABCLIA [id number] [place] [address] [place] Reagin+T pallidum IgG+IgM Se rPl-Impon 10-30-2024 Reagin and Treponema pallidum IgG and IgM [Interp] Cannot exclude recent Treponemal infection if specimen collected within 7-10 days after appearance of suspect lesions or 2-3 weeks after an exposure. Clinical correlation is required. Normal [facility] Comment on above: Order Comment: Speci men Type: BLOOD SPECIMENOrdering Facility: [facility] Address: [address] [place] [address] Performed By: #### 7 3752-8 ####[facility] LABCLIA [id number] [place] [id number] [place] URINE OB DIP B/Oon Glucose Ql (U) Negative Neg mg/dL [facility] Interpretation and review of laboratory results Normal [facility] Protein.monoclonal (U) [Mass/Vol] Negative Neg mg/dL [facility] Examination level ultrasound on 10-16-2024 [facility] Radiology Study observation (narrative) [facility] OB Triage Physician Noteon 0 10-14-[address] [facility] Medical Records Department [address] [place] [address] OB Triage Physician Note 10/14/24 0108 MR#: [id number] Acct: [id number] Name: JIMMY LEMA Rep #: [id number] : 2005 19 From: Chuy Moore DO PCP: Care Physician,No Primary Status:REG CLI Y Location: [id number] HPI - General General Date of Admission: [...] her antibiotic for a UTI so far. [facility] Medical History (Updated 10/14/24 @ 01:11 by [...] Moore, DO; No Primary Care Physician Signed [facility] JIMMY LEMA ([id number]) 3 F Date Time Provider Department 10/12/24 ESME JORDAN OBGYWM During your visit today, we recorded the following information about you: Christal Lane RN 10/12/2024 10:47 AM Signed Received urine culture result from [facility]. To to review and file antibiotic. ELIEL Garcia [...] Date Reviewed: 09/17/2024 Reviewed by: Crista Vasquez, DISTRICT SUPERVISOR.SHACKLER - Fully Assessed Reason for Visit: Results [...] interval between pregnancies affecting pr*06/28/2024 Late care ([facility]) [O09.30] 06/28/2024 Alcohol consumption during in first t*06/28/2024 Rubella non-immune status, antepartum ([facility]) [O0*07/03/2024 Supervision of high risk in third tri*10/05/2024 Enterococcus UTI [N39.0, B95.2] 10/12/2024 Prescriptions ordered this encounter Disp Refills Start End AMOXICILLIN 500 MG CAPSULE 21 c* 0 10/12/2024 10/19/2024 Route: PO Sig: Take 1 capsule by mouth three times a day for 7 days. Encounter Status:Closed by MARIUM PATEL on 10/12/[address] [facility] Urine Cultureon 10-12-2024 [facility] Enterococcus faecalis [employer] Count >100,000 Enterococcus faecalis: REACTION Ampicillin Islt LELAND <=2 Ciprofloxacin Islt LELAND 1 S Gentamicin Synergy Susc Islt SYN-S S levoFLOXacin Islt LELAND 1 S Linezolid Islt LELAND 2 S Nitrofurantoin Islt LELAND <=16 S Streptomycin High Pot Susc Islt SYN-S S Tetracycline Islt LELAND >=16 R Vancomycin Islt LELAND 2 S Normal [facility] Comment on above: Performed By: #### M [id number] #### [facility] [address] [place], [address] Bilirubin Test strip Ql (U)O rdered By: Esme Jordan on 10-10-2024 Bilirubin Ql (U) Negative Negative [facility] Fibronectinon 10-11-19 25 fFIBRONECTIN Negative Normal [facility] Comment on above: Performed By: #### L 205.0000 #### [facility] [address] [place], [address] fibronectinOrdered By: Esme Jordan on 10-10-2024 Fibronectin. (Vag fld) [Mass/Vol] Negative [facility] Ketones Test strip Ql (U)Ord ered By: Esme Jordan on 10-10-2024 Ketones Ql (U) Negative Negative [facility] Nitrite Test strip Ql (U)Ord ered By: Esme Jordan on 10-10-2024 Nitrite Ql (U) Negative Negative [facility] OB Triage Physician Noteon 0 10-10-[address] [facility] Medical Records Department [address] [place] [address] OB Triage Physician Note 10/10/24 1732 MR#: [id number] Acct: [id number] Name: JIMMY LEMA Rep #: [id number] : 2005 19 From: Esme Jordan MD PCP: Care Physician,No Primary Status:DEP CLI Y Location: [facility] HPI - General General Date [...] Final JEFFERY: 12/05/24 Gestational age: 32 0/7 [facility] Medical History (Updated 10/10/24 @ 17:34 by [...] MD; No Primary Care Physician Signed Normal [facility] Protein Test strip Ql (U)Ord ered By: Esme Jordan on 10-10-2024 Protein Ql (U) 100 mg/dl High Negative [facility] Urinalysis, Routine (Dipstic k)on 10-10-2024 BILIRUBIN URINE Negative Normal Negative [facility] Comment on above: Order Comment: CLEAN CATCH Performed By: #### L 400.2010 #### [facility] [address] [place], [place], [id number] Clarity (U) Cloudy Normal Clear [facility] Comment on above: Order Comment: CLEAN CATCH Performed By: #### L 400 #### [facility] [address] [place], [address] Color (U) Straw Normal Yellow [facility] Comment on above: Order Comment: CLEAN CATCH Performed By: #### L 400.2010 #### [facility] [address] [place], [address] GLUCOSE, UR Normal Normal Normal [facility] Comment on above: Order Comment: CLEAN CATCH Performed By: #### L 400.2010 #### [facility] [address] [place], [address] KETONE UR Negative Normal Negative [facility] Comment on above: Order Comment: CLEAN CATCH Performed By: #### L 400.2010 #### [facility] [address] [place], [address] LEUK ESTERASE 500 /ul Abnormal Negative [facility] Comment on above: Order Comment: CLEAN CATCH Performed By: #### L 400.2010 #### [facility] [address] [place], [address] Nitrite Ql (U) Negative Normal Negative [facility] Comment on above: Order Comment: CLEAN CATCH Performed By: #### L 400.2010 #### [facility] [address] [place], [address] OCCULT BLOOD-UR 25 /ul Abnormal Negative [facility] Comment on above: Order Comment: CLEAN CATCH Performed By: #### L 400.2010 #### [facility] [address] [place], [address] pH UR 6.5 Normal 5.0 - 8.0 [facility] Comment on above: Order Comment: CLEAN CATCH Performed By: #### L 400.2010 #### [facility] [address] [place], [address] PROT DIPSTX 100 mg/dl Abnormal Negative [facility] Comment on above: Order Comment: CLEAN CATCH Performed By: #### L 400.2010 #### [facility] [address] [place], [place], [id number] SP.GR. DIPSTX 1.010 Normal 1.002-1.030 [facility] Comment on above: Order Comment: CLEAN CATCH Performed By: #### L 400.2010 #### [facility] [address] [place], [place], [id number] UROBILI Normal Normal Normal [facility] Comment on above: Order Comment: CLEAN CATCH Performed By: #### L 400.2010 #### [facility] [address] [place], [place], [id number] Urine clarityOrdered By: Ximena Jordan on 10-10-2024 Clarity (U) Cloudy Clear [facility] Urine color determinationOrd ered By: Esme Jordan on 10-10-2024 Color (U) Straw Yellow [facility] Urine cultureOrdered By: Ximena Jordan on 10-10-2024 Bacteria identified Cx Nom (U) Enterococcus faecalis Abnormal [facility] Urine glucose detectionOrder ed By: Esme Jordan on 10-10-2024 Glucose Ql (U) Normal mg/dl Normal [facility] Urine leukocyte esterase det ection by dipstickOrdered By: Esme Jordan on 10-10-2024 Leukocyte esterase Test strip Ql (U) 500 /ul High Negative [facility] Urine pHOrdered By: Esme Jordan on 10-10-2024 pH (U) 6.5 [pH] 5.0 - 8.0 [facility] Urine specific gravity measu rementOrdered By: Esme Jordan on 10-10-2024 Specific gravity (U) [Rel density] 1.010 1.002-1.030 [facility] Urine urobilinogen measureme ntOrdered By: Esme Jordan on 10-10-2024 Urobilinogen Ql (U) Normal mg/dl Normal [facility] CNPNon 10-06-2024 CNPN Telephone (OGFVWE) PITAJIMMY Hank ([id number]) 3 F Date Time Provider Department 10/06/24 NURSE FAITH DOCTOR FROzW [place] CHEEK During your visit today, we recorded the following information about you: Alf Trevino RN 10/06/2024 12:23 PM Signed 3rd risk assessment form submitted 10/06/24 Alf Trevino RN Allergies As of Date: 10/06/2024 (No Known Allergies) Date Reviewed: 09/17/2024 Reviewed by: Crista Vasquez, LINCOLN.SHACKLER - Fully Assessed Reason for Visit: PRAF [...] Status:Closed by ALF TREVINO on 10/06/[address] [facility] URINE OB DIP B/Oon Glucose Ql (U) Negative Neg mg/dL [facility] Interpretation and review of laboratory results Normal [facility] Protein.monoclonal (U) [Mass/Vol] Negative Neg mg/dL [facility] CNPNon 10-02-2024 CNPN Telephone (OBGYWM) PITAJIMMY ([id number]) 3 F Date Time Provider Department 10/02/24 RAISA MACIAS During your visit today, we recorded the following information about you: Chi Galdamez RN 10/02/2024 2:11 PM Signed Written order received from [employer] for breast pump. Placed on KJ desk for signature. ELIEL Sandhu Lindsey, RN 10/24/2024 2:10 PM Signed Order signed and faxed. Darline Cruz RN Allergies As of Date: 10/02/2024 (No Known Allergies) Date Reviewed: 09/17/2024 Reviewed by: Crista Vasquez APRN.SHACKLER - Fully Assessed Reason for Visit: breast [...] Encounter Status:Closed by DARLINE CRUZ on 10/24/[address] [facility] CNOVon 09-17-2024 CNOV Office Visit (WOUCA) JIMMY LEMA ([id number]) 3 F Date Time Provider Department 09/17/24 8:30 AM CRISTA VASQUEZ During your visit today, we recorded the following information about you: Temperature Pulse Respiration Blood pressure 96.9 degrees 94/minute 18/minute 112/62 Weight 56.6 kg Crista Vasquez APRN.SHACKLER 09/17/2024 8:54 AM Signed This note was created using [employer]. Subjective Jimmy Lema is a 19 year [...] she will return for reevaluation. Crista Vasquez APRN.SHACKLER Allergies As of Date: 09/17/2024 (No Known Allergies) Date Reviewed: 09/17/2024 Reviewed by: Crista Vasquez APRN.SHACKLER - Fully Assessed Reason for Visit: Diarrhea [...] Encounter Status:Closed by CRISTA VASQUEZ on 09/17/[address] [facility] CNPNon 08-14-2024 CNPN Telephone (OGFVWE) PITAJIMMY ([id number]) 3 F Date Time Provider Department 08/14/24 NURSE FAITH DOCTOR FRVW LACONA OGFVWE During your visit today, we recorded [...] Status:Closed by ALF TREVINO on 08/14/[address] [facility] Examination level ultrasound on 07-12-2024 Indication [...] 11 oz EFW by: Hadlock (HC-AC-FL) Extended Family Services Specialist 6.7 mm CM 4.5 mm 40% [...] normal LVOT view: normal 3-vessel view: normal 2-madvso-utdgwlb view: normal Heart / Thorax Situs: situs [...] Read By: Brielle Norman M.D. MATERNAL MEDICINE [facility] Radiology Study observation (narrative) [facility] CNPN Telephone (OGFVWE) JIMMY LEMA ([id number]) 3 F Date Time Provider Department 06/29/24 NURSE FAITH DOCTOR FRVW LAC[place] OGFVWE During your visit today, we recorded [...] Status:Closed by ALF TREVINO on 06/29/[address] [facility] BACTERIAL VAGINOSIS NAATon 0 06-28-2024 Interpretation and review of laboratory results Normal [facility] Lactobacillus crispatus+gasseri+stein ii + Gardnerella vaginalis + Atopobium vaginae rRNA BAMBI+probe Ql (Vag fld) Not detected Not detected [facility] Lactobacillus crispatus+gasseri+stein ii + Gardnerella vaginalis + Atopobium vaginae rRNA BAMBI+probe Ql (Vag fld) Not detected Normal Not detected [facility] Comment on above: Order Comment: Speci men Type: SWABOrdering Facility: [facility] Address: [address] [place] [address] Performed By: #### C VTV, BVAMP ####[facility] LABCLIA [id number] [place] [address] [place] Bacteria Ur Culton Bacteria identified Cx Nom (U) ORGANISM ID: 1 >=100,000 CFU/ml Normal urogenital twyla Normal [facility] Comment on above: Performed By: #### 6 30-4 ####[facility] LABCLIA [id number] [place] [address] [place] C. trachomatis+N. gonorrhoea e DNA BAMBI+probe Ql (Unsp spec)on 06-28-2024 C. trachomatis rRNA BAMBI+probe Ql (Unsp spec) Not detected Not detected [facility] Interpretation and review of laboratory results Normal [facility] N. gonorrhoeae rRNA BAMBI+probe Ql (Unsp spec) Not detected Not detected [facility] This FDA-approved assay has been modified to accept rectal swabs self-collected in a healthcare setting. For self-collected rectal swabs, the test was developed and its performance characteristics determined by the [facility] [place] ([facility]). It has not been cleared or approved by the FDA. [facility] is regulated under CLIA as qualified to perform high-complexity testing. This test is used for clinical purposes. It should not be regarded as investigational or for research. [facility] C. trachomatis rRNA BAMBI+probe Ql (Unsp spec) Not detected Normal Not detected [facility] Comment on above: Order Comment: Speci men Type: SWABOrdering Facility: [facility] Address: [address] [place] [address] Performed By: #### 3 6902-5 ####[facility] LABCLIA [id number] [place] [address] [place] N. gonorrhoeae rRNA BAMBI+probe Ql (Unsp spec) Not detected Normal Not detected [facility] Comment on above: Order Comment: Speci men Type: SWABOrdering Facility: [facility] Address: [address] [place] [address] Performed By: #### 3 6902-5 ####[facility] LABCLIA [id number] [place] [address] [place] SCARLET/TRICHOMONAS NAATon 0 06-28-2024 C. glabrata RNA BAMBI+probe Ql (Vag fld) Not detected Not detected [facility] Scarlet sp DNA BAMBI+probe Ql (Vag fld) Not detected Not detected [facility] Comment on above: The Scarlet species group target includes C. albicans, C. tropicalis, C. parapsilosis, and C. dubliniensis. Interpretation and review of laboratory results Normal [facility] T. vaginalis DNA BAMBI+probe Ql (Unsp spec) Not detected Not detected [facility] C. glabrata RNA BAMBI+probe Ql (Vag fld) Not detected Normal Not detected [facility] Comment on above: Order Comment: Speci men Type: SWABOrdering Facility: [facility] Address: [address] [place] [address] Performed By: #### C VTV, BVAMP ####[facility] LABCLIA [id number] [place] [address] [place] Scarlet sp DNA BAMBI+probe Ql (Vag fld) Not detected Normal Not detected [facility] Comment on above: Order Comment: Speci men Type: SWABOrdering Facility: [facility] Address: [address] [place] [address] Result Comment: The Scarlet species group target includes C. albicans, C. tropicalis, C. parapsilosis, and C. dubliniensis. Performed By: #### C VTV, BVAMP ####[facility] LABCLIA [id number] [place] [address] [place] T. vaginalis DNA BAMBI+probe Ql (Unsp spec) Not detected Normal Not detected [facility] Comment on above: Order Comment: Speci men Type: SWABOrdering Facility: [facility] Address: [address] [place] [address] Performed By: #### C VTV, BVAMP ####[facility] LABCLIA [id number] [place] [address] [place] CBC W Auto Differential pane l (Bld)on 06-28-2024 Basophils (Bld) [#/Vol] 0.04 10*3/uL Normal <0.[address] [facility] Comment on above: Order Comment: Speci men Type: BLOOD SPECIMENOrdering Facility: [facility] Address: [address] [place] [address] Performed By: #### 5 7021-8 ####[facility] [id number] [place] [address] [place] Basophils/100 WBC (Bld) 0.4 % Normal [facility] Comment on above: Order Comment: Speci men Type: BLOOD SPECIMENOrdering Facility: [facility] Address: [address] [place] [address] Performed By: #### 5 7021-8 ####[facility] [id number] [place] [address] [place] Differential cell count method Nom (Bld) Auto Normal [facility] Comment on above: Order Comment: Speci men Type: BLOOD SPECIMENOrdering Facility: [facility] Address: [address] [place] [address] Performed By: #### 5 7021-8 ####[facility] MILLWNCLIA [id number] [place] [address] [place] Eosinophils (Bld) [#/Vol] 0.07 10*3/uL Normal <0.[address] [facility] Comment on above: Order Comment: Speci men Type: BLOOD SPECIMENOrdering Facility: [facility] Address: [address] [place] [address] Performed By: #### 5 7021-8 ####[facility]AWVTL[facility] [id number] [place] [address] [place] Eosinophils/100 WBC (Bld) 0.7 % Normal [facility] Comment on above: Order Comment: Speci men Type: BLOOD SPECIMENOrdering Facility: [facility] Address: [address] [place] [address] Performed By: #### 5 7021-8 ####[facility] WESTLIA [id number] [place] [address] [place] Erythrocyte distribution width (RBC) [Ratio] 13.3 % Normal 11.5-15.[address] [facility] Comment on above: Order Comment: Speci men Type: BLOOD SPECIMENOrdering Facility: [facility] Address: [address] [place] [address] Performed By: #### 5 7021-8 ####[facility] MILLWNCLIA [id number] [place] [address] [place] Hematocrit (Bld) [Volume fraction] 35.7 % Low 36.0-46.[address] [facility] Comment on above: Order Comment: Speci men Type: BLOOD SPECIMENOrdering Facility: [facility] Address: [address] [place] [address] Performed By: #### 5 7021-8 ####[facility] WESTLIA [id number] [place] [address] [place] Hemoglobin (Bld) [Mass/Vol] 12.5 g/dL Normal 11.5-15.[address] [facility] Comment on above: Order Comment: Speci men Type: BLOOD SPECIMENOrdering Facility: [facility] Address: [address] [place] [address] Performed By: #### 5 7021-8 ####[facility] [id number] [place] [address] [place] Immature granulocytes (Bld) [#/Vol] 0.07 10*3/uL Normal <0.[address] [facility] Comment on above: Order Comment: Speci men Type: BLOOD SPECIMENOrdering Facility: [facility] Address: [address] [place] [address] Performed By: #### 5 7021-8 ####[facility] [id number] [place] [address] [place] Immature granulocytes/100 WBC (Bld) 0.7 % Normal [facility] Comment on above: Order Comment: Speci men Type: BLOOD SPECIMENOrdering Facility: [facility] Address: [address] [place] [address] Performed By: #### 5 7021-8 ####[facility] [id number] [place] [address] [place] Lymphocytes (Bld) [#/Vol] 2.24 10*3/uL Normal 1.00-4.[address] [facility] Comment on above: Order Comment: Speci men Type: BLOOD SPECIMENOrdering Facility: [facility] Address: [address] [place] [address] Performed By: #### 5 7021-8 ####[facility] [id number] [place] [address] [place] Lymphocytes/100 WBC (Bld) 22.0 % Normal [facility] Comment on above: Order Comment: Speci men Type: BLOOD SPECIMENOrdering Facility: [facility] Address: [address] [place] [address] Performed By: #### 5 7021-8 ####[facility] HOS[facility]ITALNCELLEN [id number] [place] [address] [place] MCH (RBC) [Entitic mass] 31.7 pg Normal 26.0-34.[address] [facility] Comment on above: Order Comment: Speci men Type: BLOOD SPECIMENOrdering Facility: [facility] Address: [address] [place] [address] Performed By: #### 5 7021-8 ####[facility]ITALNCS[facility] [id number] [place] [address] [place] MCHC (RBC) [Mass/Vol] 35.0 g/dL Normal 30.5-36.0 [facility] Comment on above: Order Comment: Speci men Type: BLOOD SPECIMENOrdering Facility: [facility] Address: [address] [place] [address] Performed By: #### 5 7021-8 ####[facility]ITALNCLIA [id number] [address] [place] MCV (RBC) [Entitic vol] 90.6 fL Normal 80.0-100.0 C [facility] Comment on above: Order Comment: Speci men Type: BLOOD SPECIMENOrdering Facility: [facility] Address: [address] [place] [address] Performed By: #### 5 7021-8 ####[facility] HOSPITALNCA [id number] [address] [place] Monocytes (Bld) [#/Vol] 0.58 10*3/uL Normal <0.[address] [facility] Comment on above: Order Comment: Speci men Type: BLOOD SPECIMENOrdering Facility: [facility] Address: [address] [place] [address] Performed By: #### 5 7021-8 ####[facility] WESTLIA [id number] [place] [address] [place] Monocytes/100 WBC (Bld) 5.7 % Normal [facility] Comment on above: Order Comment: Speci men Type: BLOOD SPECIMENOrdering Facility: [facility] Address: [address] [place] [address] Performed By: #### 5 7021-8 ####[facility]LIA [id number] [place] [address] [place] Neutrophils (Bld) [#/Vol] 7.16 10*3/uL Normal 1.45-7.[address] [facility] Comment on above: Order Comment: Speci men Type: BLOOD SPECIMENOrdering Facility: [facility] Address: [address] [place] [address] Performed By: #### 5 7021-8 ####[facility] HOSPITALA [id number] [place] [address] [place] Neutrophils/100 WBC (Bld) 70.5 % Normal [facility] Comment on above: Order Comment: Speci men Type: BLOOD SPECIMENOrdering Facility: [facility] Address: [address] [place] [address] Performed By: #### 5 7021-8 ####[facility] WE[facility]LIA [id number] [place] [address] [place] Nucleated RBC (Bld) [#/Vol] 10*3/uL Normal <0.[address] [facility] Comment on above: Order Comment: Speci men Type: BLOOD SPECIMENOrdering Facility: [facility] Address: [address] [place] [address] Performed By: #### 5 7021-8 ####[facility] WE[facility] [id number] [place] [address] [place] Nucleated RBC/100 WBC (Bld) [Ratio] 0.0 /100 WBC Normal [facility] Comment on above: Order Comment: Speci men Type: BLOOD SPECIMENOrdering Facility: [facility] Address: [address] [place] [address] Performed By: #### 5 7021-8 ####[facility] WESTENOCH [id number] [place] [address] [place] Platelet mean volume (Bld) [Entitic vol] 9.5 fL Normal 9.0-12.[address] [facility] Comment on above: Order Comment: Speci men Type: BLOOD SPECIMENOrdering Facility: [facility] Address: [address] [place] [address] Performed By: #### 5 7021-8 ####[facility] HOSPITALAnabell [id number] [place] [address] [place] Platelets (Bld) [#/Vol] 229 10*3/uL Normal 150-[address] [facility] Comment on above: Order Comment: Speci men Type: BLOOD SPECIMENOrdering Facility: [facility] Address: [address] [place] [address] Performed By: #### 5 7021-8 ####[facility] S[facility]GCOMMUN[facility]ENO[facility] [id number] [place] [address] [place] RBC (Bld) [#/Vol] 3.94 10*6/uL Normal 3.90-5.20 [facility] Comment on above: Order Comment: Speci men Type: BLOOD SPECIMENOrdering Facility: [facility] Address: [address] [place] [address] Performed By: #### 5 7021-8 ####[facility] HOSPITALNCLIAnabell [id number] [place] [address] [place] WBC (Bld) [#/Vol] 10.16 10*3/uL Normal 3.70-11.00 [facility] Comment on above: Order Comment: Speci men Type: BLOOD SPECIMENOrdering Facility: [facility] Address: [address] [place] [address] Performed By: #### 5 7021-8 ####[facility] [id number] [place] [address] [place] HBV surface Ag Ql (S)on 06-07 Interpretation and review of laboratory results Normal [facility] HBV surface Ag Ser Qlon 06-07 HBV surface Ag Ql (S) Negative Normal Negative [facility] Comment on above: Order Comment: Laura gill Type: BLOOD SPECIMENOrdering Facility: [facility] Address: [address] [place] [address] Performed By: #### 7 3752-8, 43507-4, 5195-3 ####[facility] LABCLIA [id number] [place] [address] [place] HCV Ab Ql (S)on 06-28-2024 Interpretation and review of laboratory results Normal [facility] HCV Ab Ser Qlon 06-28-2024 HCV Ab Ql (S) Negative Normal Negative [facility] Comment on above: Order Comment: Speci bridget Type: BLOOD SPECIMENOrdering Facility: [facility] Address: [address] [place] [address] Result Comment: The result suggests no evidence of infection with Hepatitis C virus. Should recent infection be suspected, repeat testing may be considered 4-6 weeks after this draw. Performed By: #### 1 6128-1 ####[facility] LABCLIA [id number] [place] [address] [place] HEPATITIS B SURFACE ANTIGENo n 06-28-2024 HBV surface Ag Ql (S) Negative Negative [facility] HEPATITIS C ANTIBODY IA WITH CONFIRMATIONon 06-28-2024 HCV Ab Ql (S) Negative Negative [facility] Comment on above: The result suggests no evidence of infection with Hepatitis C virus. Should recent infection be suspected, repeat testing may be considered 4-6 weeks after this draw. HIV 1+2 Ab IA Qlon 5 HIV 1 and 2 Ab IA.rapid Nom (S/P/Bld) [facility] Comment on above: Test not indicated. HIV 1+2 Ab+HIV1 p24 Ag IA Ql Non-Reactive Nonreactive [facility] HIV immunoassay testing algorithm interpretation (S/P/Bld) [Interp] [facility] Comment on above: No evidence of HIV-1 or HIV-2 infection. Should recent infection be suspected, repeat testing may be considered 2-3 weeks after this draw. Heard Rev. Code 3701.243(E): This information has been [...] release of HIV test results or diagnoses. [facility] HIV 1 and 2 Ab IA.rapid Nom (S/P/Bld) Normal [facility] Comment on above: Order Comment: Speci men Type: BLOOD SPECIMENOrdering Facility: [facility] Address: [address] [place] [address] Result Comment: Test not indicated. Performed By: #### 7 3752-8, 33224-1, 5195-3 ####[facility] LABCLIA [id number] [address] [place] HIV 1+2 Ab+HIV1 p24 Ag IA Ql Non-Reactive Normal Nonreactive [facility] Comment on above: Order Comment: Speci men Type: BLOOD SPECIMENOrdering Facility: [facility] Address: [address] [place] [address] Performed By: #### 7 3752-8, 81593-0, 5195-3 ####[facility] LABCLIA [id number] [place] [address] [place] HIV immunoassay testing algorithm interpretation (S/P/Bld) [Interp] Normal [facility] Comment on above: Order Comment: Speci men Type: BLOOD SPECIMENOrdering Facility: [facility] Address: [address] [place] [address] Result Comment: No e vidence of HIV-1 or HIV-2 infection. Should recent infection be suspected, repeat testing may be considered 2-3 weeks after this draw. Heard Rev. Code 3701.243(E): This information has been [...] or diagnoses. Performed By: #### 7 3752-8, 88151-5, 5195-3 ####[facility] LABCLIA [id number] [place] [address] [place] HbA1c (Bld)on 06-28-2024 Average glucose Estimated from glycated hemoglobin (Bld) [Mass/Vol] 100 mg/dL [facility] Comment on above: eAG: (Estimated aver age glucose) is a calculated value from HgbA1c and is bank representative of the average blood glucose level in the last 2-3 month period. HbA1c (Bld) [Mass fraction] 5.1 % 4.3 - 5.6 % [facility] Comment on above: [place] Diabetes As sociation guidelines indicate that patients with HgbA1c in the range 5.7-6.4% are at increased risk for development of diabetes, and intervention by lifestyle modification may be beneficial. HgbA1c greater or equal to 6.5% is considered diagnostic of diabetes. [facility] Average glucose Estimated from glycated hemoglobin (Bld) [Mass/Vol] 100 mg/dL Normal [facility] Comment on above: Order Comment: Speci men Type: BLOOD SPECIMENOrdering Facility: [facility] Address: [address] [place] [address] Result Comment: eAG: (Estimated average glucose) is a calculated value from HgbA1c and is bank representative of the average blood glucose level in the last 2-3 month period. Performed By: #### 5 5454-3 ####[facility] LABCLIA [id number] [place] [address] [place] HbA1c (Bld) [Mass fraction] 5.1 % Normal 4.3-5.[address] [facility] Comment on above: Order Comment: Speci men Type: BLOOD SPECIMENOrdering Facility: [facility] Address: [address] [place] [address] Result Comment: [place] Diabetes Association guidelines indicate that patients with HgbA1c in the range 5.7-6.4% are at increased risk for development of diabetes, and intervention by lifestyle modification may be beneficial. HgbA1c greater or equal to 6.5% is considered diagnostic of diabetes. Performed By: #### 5 5454-3 ####[facility] LABCLIA [id number] [place] [address] [place] [id number] PLUSon 06-28-2024 Cell-free DNA./Cell-free DNA.total Dosage of chromosome-specific cfDNA (cfDNA) [Molar fraction] 23% Normal [facility] Comment on above: Order Comment: Speci men Type: BLOOD SPECIMENOrdering Facility: [facility] Address: [address] [place] [address] Performed By: #### M AT21 ####[facility] LABCLIA [id number] [place] [address] Chr 13+18+21+X+Y aneuploidy Dosage of chromosome-specific cfDNA Ql (cfDNA) Negative Normal [facility] Comment on above: Order Comment: Speci men Type: BLOOD SPECIMENOrdering Facility: [facility] Address: [address] [place] [address] Performed By: #### M AT21 ####[facility] LABCLIA [id number] [place] [address] Chr 21 trisomy Dosage of chromosome-specific cfDNA Ql (cfDNA) Negative Normal [facility] Comment on above: Order Comment: Speci men Type: BLOOD SPECIMENOrdering Facility: [facility] Address: [address] [place] [address] Performed By: #### M AT21 ####[facility] LABCLIA [id number] [place] [address] Chr X and Y aneuploidy risk Sequencing Ql (cfDNA) [Interp] Not detected Normal [facility] Comment on above: Order Comment: Speci men Type: BLOOD SPECIMENOrdering Facility: [facility] Address: [address] [place] [address] Result Comment: Not Detected Not Detected Performed By: #### M AT21 ####[facility] LABCLIA [id number] [place] [address] Citation Issa (Reference lab test) Comment Normal [facility] Comment on above: Order Comment: Speci men Type: BLOOD SPECIMENOrdering Facility: [facility] Address: [address] [place] [address] Result Comment: 1. P shu JIMENEZ, et al. Jennifer Med. 2012;14(3):296-305. 2. Liberty CURRY et al. Prenat Diag. 2013;33(6):591-597. 3. Richards C, et al. Clin Chem. 2015 Apr;61(4):608-616. 4. Gael JIMENEZ, et al. Jennifer Med. 2011;13(11):913-920. 5. ACOG/SMFM Practice Bulletin No. 226, Dec 2019. Performed By: #### M AT21 ####[facility] LABCLIA [id number] [place] [address] Gestational age Estimated from conception date Garza Normal [facility] Comment on above: Order Comment: Speci men Type: BLOOD SPECIMENOrdering Facility: [facility] Address: [address] [place] [address] Performed By: #### M AT21 ####[facility] LABCLIA [id number] [place] [address] GESTATIONALAGE AGE > OR = 9W Yes Normal [facility] Comment on above: Order Comment: Speci men Type: BLOOD SPECIMENOrdering Facility: [facility] Address: [address] [place] [address] Performed By: #### M AT21 ####[facility] LABCLIA [id number] [place] [address] Laboratory comment Issa (Report) Comment Normal [facility] Comment on above: Order Comment: Laura gill Type: BLOOD SPECIMENOrdering Facility: [facility] Address: [address] [place] [address] Result Comment: The MaterniT(R) 21 PLUS laboratory-developed test (LDT) analyzes circulating cell-free DNA from a maternal blood sample. This test is used for screening purposes and not diagnostic. Clinical correlation is recommended. Validation data on twin pregnancies is limited and the ability of this test to detect aneuploidy in higher multiple gestations has not yet been validated. Performed By: #### M AT21 ####[facility] LABCLIA [id number] [place] [address] regulatory affairs director name Nom (Provider) Comment Normal [facility] Comment on above: Order Comment: Laura gill Type: BLOOD SPECIMENOrdering Facility: [facility] Address: [address] [place] [address] Result Comment: This specimen showed an expected representation of chromosome 21, 18 and 13 material. Clinical correlation is suggested. Comment Cj Morocho MD, PhD, Director, [employer] Performed By: #### M AT21 ####[facility] LABCLIA [id number] [place] [address] LIMITATIONS OF THE TEST Comment Normal [facility] Comment on above: Order Comment: Laura gill Type: BLOOD SPECIMENOrdering Facility: [facility] Address: [address] [place] [address] Result Comment: Hien tolliver the results of [...] and Fragmin(R)). Performed By: #### M AT21 ####[facility] LABCLIA [id number] [place] [address] Monosomy X risk Dosage of chromosome-specific cfDNA Ql (Plasma cell-free+WBC DNA) [Interp] Not detected Normal [facility] Comment on above: Order Comment: Speci men Type: BLOOD SPECIMENOrdering Facility: [facility] Address: [address] [place], [place] [address] [address] Performed By: #### M AT21 ####[facility] LABCLIA [id number] [place] [address] NEGATIVE PREDICTIVE VALUE Note Normal [facility] Comment on above: Order Comment: Laura gill Type: BLOOD SPECIMENOrdering Facility: [facility] Address: [address] [place] [address] Result Comment: The Negative Predictive Value (NPV) for trisomy 21, 18, and 13 is greater than 99%. The NPV for SCA and ESS cannot be calculated as SCA and ESS are only reported when an abnormality is detected. Performed By: #### M AT21 ####[facility] LABCLIA [id number] [place] [address] PERFORMANCE CHARACTERISTICS Note Normal [facility] Comment on above: Order Comment: Laura gill Type: BLOOD SPECIMENOrdering Facility: [facility] Address: [address] [place] [address] Result Comment: ! Sex ! Accuracy: 99.4% [...] ! ! ! * As reported in [facility] database nstd37 [https://www.ncbi.nlm.nih.gov/dbvar/studies/nstd37/ ] # Estimated Sensitivity. Sensitivity estimated across the observed size distribution of each syndrome [per [facility] database nstd37] and across the range of fractions observed in routine clinical NIPT. Actual sensitivity can also be influenced by other factors such as the size of the event, total sequence counts, amplification bias, or sequence bias. ## Garza gestation only. Performed By: #### M AT21 ####SpectrumDNAIA [id number] [place] [address] POSITIVE PREDICTIVE VALUE N/A Normal [facility] Comment on above: Order Comment: Speci men Type: BLOOD SPECIMENOrdering Facility: [facility] Address: [address] [place] [address] Performed By: #### M AT21 ####[employer] LABCLIA [id number] [place] [address] Reference Lab Test Method Comment Normal [facility] Comment on above: Order Comment: Speci men Type: BLOOD SPECIMENOrdering Facility: [facility] Address: [address] [place] [address] Result Comment: See Notes Circulating cell-free DNA [...] and 22. Performed By: #### M AT21 ####SpectrumDNAIA [id number] [place] [address] Service comment (Unsp spec) [Interp] Comment Normal [facility] Comment on above: Order Comment: Speci men Type: BLOOD SPECIMENOrdering Facility: [facility] Address: [address] [place] [address] Result Comment: See Notes [employer]. is a subsidiary of [employer], using the brand [employer]. This test was developed and its performance characteristics determined by [employer]. It has not been cleared or approved by the Food and Drug Administration. This laboratory is certified under the Clinical Laboratory Improvement Amendments (CLIA) as qualified to perform high complexity clinical laboratory testing and accredited by the [employer] (CAP). If there is future clinical need for adding MaterniT GENOME testing, this specimen will be available until term. [facility] samples will not be retained beyond 60 days. [facility] patients will have to send a new sample for re-sequencing ([facility] Test Code: [id number]). Performed By: #### M AT21 ####[facility]RP Migo SoftwareIA [id number] [place] [address] Sex Dosage of chromosome-specific cfDNA Nom (cfDNA) Comment Normal [facility] Comment on above: Order Comment: Speci men Type: BLOOD SPECIMENOrdering Facility: [facility] Address: [address] [place], [place] [id number] Result Comment: Cons istent with Male Performed By: #### M AT21 ####[facility] LABCLIA [id number] [place] [address] Test performance information Issa (Unsp spec) Comment Normal [facility] Comment on above: Order Comment: Speci men Type: BLOOD SPECIMENOrdering Facility: [facility] Address: [address] [place] [address] Result Comment: The performance characteristics of the MaterniT(R) 21 PLUS laboratory-developed test (LDT) have been determined in a clinical validation study with women at increased risk for chromosomal aneuploidy.[1-4] Performed By: #### M AT21 ####[facility] LABCLIA [id number] [place] [address] Trisomy 13 risk Dosage of chromosome-specific cfDNA Ql (cfDNA) [Interp] Negative Normal [facility] Comment on above: Order Comment: Speci men Type: BLOOD SPECIMENOrdering Facility: [facility] Address: [address] [place] [address] Performed By: #### M AT21 ####[facility] LABCLIA [id number] [place] [address] Trisomy 18 risk Dosage of chromosome-specific cfDNA Ql (Plasma cell-free+WBC DNA) [Interp] Negative Normal [facility] Comment on above: Order Comment: Speci men Type: BLOOD SPECIMENOrdering Facility: [facility] Address: [address] [place] [address] Performed By: #### M AT21 ####[facility] LABCLIA [id number] [place] [address] POC EXECUTIVE RELATIONS SPECIALIST ULTRASOUNDon 06-29-19 Indication Viability; confirm cardiac activity, [...] Read By: Gina Kulkarni CNM MATERNAL MEDICINE [facility] Radiology Study observation (narrative) [facility] RUBELLA IGG ANTIBODYon 06-28 Interpretation and review of laboratory results Abnormal [facility] Rubella IgG, Qual Negative Abnormal Positive [facility] Comment on above: The result suggests no history of Rubella vaccination or exposure to Rubella virus, however, some individuals with past history of Rubella vaccination may test negative using this test as immunity to Rubella virus wanes over time after vaccination. Please correlate with vaccination history if applicable. [facility] RUBELLA IGG AB, QUAL Negative Abnormal Positive [facility] Comment on above: Order Comment: Speci men Type: BLOOD SPECIMENOrdering Facility: [facility] Address: [address] [place] [address] Result Comment: The result suggests no history of Rubella vaccination or exposure to Rubella virus, however, some individuals with past history of Rubella vaccination may test negative using this test as immunity to Rubella virus wanes over time after vaccination. Please correlate with vaccination history if applicable. Performed By: #### R UBIGG ####[facility] LABCLIA [id number] [place] [address] [place] Reagin and Treponema pallidu m IgG and IgM [Interp]on 06-28-2024 T. pallidum IgG+IgM IA Ql (S) Non-Reactive Nonreactive [facility] T. pallidum IgG+IgM IA Ql (S) Non-Reactive Normal Nonreactive [facility] Comment on above: Order Comment: Speci men Type: BLOOD SPECIMENOrdering Facility: [facility] Address: [address] [place] [address] Performed By: #### 7 3752-8, 07472-9, 5-3 ####[facility] LABCLIA [id number] [place] [address] [place] Reagin+T pallidum IgG+IgM Se rPl-Impon 06-28-2024 Reagin and Treponema pallidum IgG and IgM [Interp] Cannot exclude recent Treponemal infection if specimen collected within 7-10 days after appearance of suspect lesions or 2-3 weeks after an exposure. Clinical correlation is required. Normal [facility] Comment on above: Order Comment: Speci men Type: BLOOD SPECIMENOrdering Facility: [facility] Address: [address] [place] [address] Performed By: #### 7 3752-8, 61533-7, 51943 ####[facility] LABCLIA [id number] [place] [address] [place] SYPHILIS TREPONEMAL W/REFLEX on 06-28-2024 Reagin and Treponema pallidum IgG and IgM [Interp] Cannot exclude recent Treponemal infection if specimen collected within 7-10 days after appearance of suspect lesions or 2-3 weeks after an exposure. Clinical correlation is required. [facility] TYPE + SCREEN PRENATALon ABO group Nom (Bld) O [facility] Blood group antibody screen Ql Negative [facility] Rh Nom (Bld) Positive [facility] Type and Screen Expiration 07/01/2024 23:59 [facility] ABO O Normal [facility] Comment on above: Order Comment: Speci men Type: BLOOD SPECIMENOrdering Facility: [facility] Address: [address] [place] [address] Performed By: #### T SPN ####[facility] SA[facility] BLOOD BANKCLIA [id number] [place] [address] [place] Rh Nom (Bld) Positive Normal [facility] Comment on above: Order Comment: Speci men Type: BLOOD SPECIMENOrdering Facility: [facility] Address: [address] [place] [place] [address] [place] [address] Performed By: #### T SPN ####CC MAIN BLOOD BANKCLIA [id number] [address] TYPE AND SCREEN EXPIRATION 07/01/2024 23:[address] [facility] Comment on above: Order Comment: Speci men Type: BLOOD SPECIMENOrdering Facility: [facility] Address: [address] [place], [place] [address] [address] Performed By: #### T SPN ####CC MAIN BLOOD BANKCLIA [id number] [address] CNPNon 04-07-2024 CNPN Telephone (PEDSWS) JIMMY LEMA ([id number]) 3 F Date Time Provider Department 04/07/24 DIANA VELAZQUEZS During your visit today, we recorded the [...] contact office to schedule sports ortho consult. Shrimp Trawler Captain's decision tree advises to schedule patient to [...] Order(s):CONSULT TO SPORTS MEDICINE [[id number]] Order #: [id number]: 1 FUTURE Prescriptions as of 04/08/2024 - [...] Status:Closed by ELSY EVANS on 04/07/24 Normal [facility] XR Sacrum and Coccyx 3 Views on 04-06-2024 IMPRESSION: Transitional vertebra at the lumbosacral junction. Patternator: HIRAM Transcribe Date/Time: Apr 06 2024 10:14A Dictated by : JOANNE HERRING MD This examination was interpreted and the report reviewed and electronically signed by: JOANNE HERRING MD on Apr 06 2024 10:16AM EST DIVISION OF RADIOLOGY * * *Final Report* [...] significant osteophyte formation. DIVISION OF RADIOLOGY Provider, [facility] - 04/06/2024 * * *Final Report* * [...] IMPRESSION: Transitional vertebra at the lumbosacral junction. Patternator: PSCB Transcribe Date/Time: Apr 06 2024 10:14A Dictated by : JOANNE HERRING MD This examination was interpreted and the report reviewed and electronically signed by: JOANNE HERRING MD on Apr 06 2024 10:16AM [facility] XR Sacrum and Coccyx 3 Views Ordered By: Ccf Provider on 04-06-2024 [facility] CNOVon 04-05-2024 CNOV Office Visit (PEDSWS) JIMMY LEMA ([id number]) 3 F Date Time Provider Department 04/05/24 [...] Diagnosis:Bony abnormality [Q79.9] Order(s):XR SACRUM/COCCYX 3V AP/LAT [[id number]] Order #: [id number] FUTURE Prescriptions as of 04/13/2024 - PAIN [...] Status:Closed by DIANA VELAZQUEZ on 04/13/[address] [facility] XR SACRUM/COCCYX 3V AP/LATon 04-05-2024 XR [...] IMPRESSION: Transitional vertebra at the lumbosacral junction. Patternator: HIRAM Transcribe Date/Time: Apr 06 2024 10:14A Dictated by : JOANNE HERRING MD This examination was interpreted and the report reviewed and electronically signed by: JOANNE HERRING MD on Apr 06 2024 10:16AM EST [id number] CN [facility] Sacrum and Coccyx 3 Views on 04-05-2024 Radiology Study observation (narrative) [facility] 03-16-2024 ROOSEVELTN Telephone (OBGYWM) JIMMY LEMA ([id number]) 3 F Date Time Provider Department 03/16/24 SIOMARA LANZA OBGYWM During your visit today, we recorded the following information about you: Siomara Lanza APRN.CNP 03/16/2024 8:54 AM Signed Based on urinalysis it does appear the patient has a urinary tract infection Macrobid into drug [facility] in [place]. Please notify patient. Siomara Lanza APRN.Chi Lerma [...] Encounter Status:Closed by CHI GALDAMEZ on 03/16/24 [facility] Bacteria Ur Culton Bacteria identified Cx [...] , Intermediate >32 , Resistant >[address] [facility] Comment on above: Performed By: #### 6 30-4 ####[facility] LABCLIA [id number] [place] [address] [place] Urinalysis complete panel (U )on 03-15-2024 BACTERIA UL >9821 High Negative [facility] Comment on above: Order Comment: Speci men Type: URINE SPECIMENOrdering Facility: [facility] Address: [address] [place] [address] Performed By: #### 2 4356-8 ####[facility] LABIA [id number] [place] [address] [place] Bilirubin Ql (U) Negative Normal Negative [facility] [place] Comment on above: Order Comment: Speci men Type: URINE SPECIMENOrdering Facility: [facility] Address: [address] [place] [address] Performed By: #### 2 4356-8 ####[facility] LABCLIA [id number] [place] [address] [place] Clarity (Unsp spec) Cloudy Abnormal Clear [facility] Comment on above: Order Comment: Speci men Type: URINE SPECIMENOrdering Facility: [facility] Address: [address] [place] [address] Performed By: #### 2 4356-8 ####[facility] LABCLIA [id number] [place] [address] [place] Color (U) Yellow Normal Yellow [facility] Comment on above: Order Comment: Speci men Type: URINE SPECIMENOrdering Facility: [facility] Address: [address] [place] [address] Performed By: #### 2 4356-8 ####[facility] LABCLIA [id number] [place] [address] [place] Epithelial cells LM.HPF (Urine sed) [#/Area] Many Normal [facility] Comment on above: Order Comment: Speci men Type: URINE SPECIMENOrdering Facility: [facility] Address: [address] [place] [address] Result Comment: Few Performed By: #### 2 4356-8 ####[facility] LABCLIA [id number] [place] [address] [place] Glucose Test strip (U) [Mass/Vol] Negative Normal Negative [facility] Comment on above: Order Comment: Speci men Type: URINE SPECIMENOrdering Facility: [facility] Address: [address] [place] [address] Performed By: #### 2 4356-8 ####[facility] LABCLIA [id number] [place] [address] [place] Hemoglobin Ql (U) 2+ Abnormal Negative [facility] Comment on above: Order Comment: Speci men Type: URINE SPECIMENOrdering Facility: [facility] Address: [address] [place] [address] Performed By: #### 2 4356-8 ####[facility] LABCLIA [id number] [place] [address] [place] Hyaline casts (Urine sed) [#/Area] 1-3 /LPF Abnormal 0 /LPF [facility] Comment on above: Order Comment: Speci men Type: URINE SPECIMENOrdering Facility: [facility] Address: [address] [place] [address] Performed By: #### 2 4356-8 ####[facility] LABCLIA [id number] [place] [address] [place] Ketones Ql (U) Trace Abnormal Negative [facility] Comment on above: Order Comment: Speci men Type: URINE SPECIMENOrdering Facility: [facility] Address: [address] [place] [address] Performed By: #### 2 4356-8 ####[facility] LABCLIA [id number] [place] [address] [place] Leukocyte esterase Test strip Ql (U) 1+ Abnormal Negative [facility] Comment on above: Order Comment: Speci men Type: URINE SPECIMENOrdering Facility: [facility] Address: [address] [place] [address] Performed By: #### 2 4356-8 ####[facility] LABCLIA [id number] [place] [address] [place] Nitrite Ql (U) Negative Normal Negative [facility] Comment on above: Order Comment: Speci men Type: URINE SPECIMENOrdering Facility: [facility] Address: [address] [place] [address] Performed By: #### 2 4356-8 ####[facility] LABCLIA [id number] [place] [address] [place] pH (U) 5.5 [pH] Normal <8.[address] [facility] Comment on above: Order Comment: Speci men Type: URINE SPECIMENOrdering Facility: [facility] Address: [address] [place] [address] Performed By: #### 2 4356-8 ####[facility] LABCLIA [id number] [place] [address] [place] Protein (U) [Mass/Vol] 2+ Abnormal Negative [facility] Comment on above: Order Comment: Speci men Type: URINE SPECIMENOrdering Facility: [facility] Address: [address] [place] [address] Performed By: #### 2 4356-8 ####[facility] LABIA [id number] [place] [address] [place] RBC LM.HPF (Urine sed) [#/Area] /[HPF] Abnormal 0-2 /HPF [facility] Comment on above: Order Comment: Speci men Type: URINE SPECIMENOrdering Facility: [facility] Address: [address] [place] [address] Performed By: #### 2 4356-8 ####[facility] LABIA [id number] [place] [address] [place] Specific gravity (U) [Rel density] 1.026 Normal 1.005-1.[address] [facility] Comment on above: Order Comment: Speci men Type: URINE SPECIMENOrdering Facility: [facility] Address: [address] [place] [address] Performed By: #### 2 4356-8 ####[facility] LABIA [id number] [place] [address] [place] Urobilinogen Ql (U) 0.2 EU/dL Normal 0.2-1.0 EU/dL [facility] Comment on above: Order Comment: Speci men Type: URINE SPECIMENOrdering Facility: [facility] Address: [address] [place] [address] Performed By: #### 2 4356-8 ####[facility] LABIA [id number] [place] [address] [place] WBC LM.HPF (Urine sed) [#/Area] /[HPF] Abnormal 0-5 /HPF [facility] Comment on above: Order Comment: Speci men Type: URINE SPECIMENOrdering Facility: [facility] Address: [address] [place] [address] Performed By: #### 2 4356-8 ####[facility] LABIA [id number] [address] [address] [place] Urgent Care Visit Reporton 0 12-01-2023 Urgent Care Visit Report [facility] [address], [address] [place] [address] OFFICE VISIT Date of Service: 12/01/23 MR#: [id number] Acct: [id number] Name: JIMMY LEMA Rep #: [id number] : 2005 Provider: KATLYN Gibbs Age/Sex: 18/F Location: [facility] Status: Signed Intake Vital Signs 07/05/23 11:31 Height 5 ft 3 in Intake Visit Reasons: PRE EMP/NON DOT/PHYSICAL/[place] Chief Complaint: feeding assessment Allergies No Known Allergies Allergy (Verified 06/16/23 19:28) [facility] Medical History (Updated 12/01/23 @ 08:33 by [...] Status: Acute 12/01/23 0840 Date Carlyle POTTS Cosign Signature: Date (if applicable) CC: Normal [facility] Absolute lymphocyte countOrd ered By: Gina Kulkarni on 06-16-2023 Lymphocytes Auto (Unsp spec) [#/Vol] 1.70 10*3/uL 0.83-4.51 [facility] Automated lymphocyte count a s percentage of total leukocytesOrdered By: Gina Kulkarni on 06-16-2023 Lymphocytes/100 WBC Auto (Unsp spec) 14.0 % 19-41 [facility] Basophil percentageOrdered B y: Gina Kulkarni on 06-16-2023 Basophils/100 WBC (Bld) 0.3 % 0-1 [facility] Eosinophils/100 WBC (Bld) 0.3 % 0-5 [facility] Hemoglobin (Bld) [Mass/Vol] 12.0 g/dL 12.0-15.0 [facility] Monocytes/100 WBC (Bld) 8.1 % 0-10 [facility] Neutrophils (Bld) [#/Vol] 9.2 10*3/uL 2.0-7.7 [facility] Neutrophils/100 WBC (Bld) 75.7 % 47-70 [facility] WBC (Bld) [#/Vol] 12.2 10*3/uL 4.4-11.0 [facility] Determination of erythrocyte mean corpuscular volume (MCV)Ordered By: Gina Kulkarni on 06-16-2023 MCV (RBC) [Entitic vol] 94.7 fL 81-99 [facility] Erythrocyte distribution wid th ratioOrdered By: Gina Kulkarni on 06-16-2023 Erythrocyte distribution width (RBC) [Ratio] 13.8 % 11.6-14.6 [facility] Erythrocyte distribution wid th standard deviationOrdered By: Gina Kulkarni on 06-16-2023 Erythrocyte distribution width (RBC) [Entitic vol] 48.0 fL 35.1-43.9 [facility] Hematocrit Auto (Bld) [Volum e fraction]Ordered By: Gina Kulkarni on 06-16-2023 Hematocrit (Bld) [Volume fraction] 35.5 % 37-47 [facility] Immature granulocytes/100 WB C Auto (Bld)Ordered By: Gina Kulkarni on 06-16-2023 Immature granulocytes/100 WBC (Bld) 1.600 % 0.0-0.9 [facility] Comment on above: IG% - Immature Granu locytes (promyelocytes, myelocytes and metamyelocytes) > 1% indicates that a LEFT SHIFT is Present. Laboratory - Hematology and Cell countsOrdered By: Gina Kulkarni on 06-16-2023 MCH (RBC) [Entitic mass] 32.0 pg 27.0-32.0 [facility] MCHC (RBC) [Mass/Vol] 33.8 g/dL 32-36 [facility] Nucleated RBC/100 WBC (Bld) [Ratio] 0 % 0-5 [facility] Platelet mean volume (Bld) [Entitic vol] 10.6 fL 6.2-12.0 [facility] Platelets (Bld) [#/Vol] 214 10*3/uL 150-450 [facility] RBC Auto (Bld) [#/Vol]Ordere d By: Gina Kulkarni on 06-16-2023 RBC (Bld) [#/Vol] 3.75 10*6/uL 4.2-5.4 [facility] Serum Treponema species anti body detectionOrdered By: Gina Kulkarni on 06-16-2023 Treponema sp Ab Ql (S) Non-Reactive [facility] URINE OB DIP B/Oon 4 Glucose Ql (U) Negative Neg mg/dL [facility] Protein.monoclonal (U) [Mass/Vol] 100 mg/dL Neg mg/dL [facility] URINE OB DIP B/Oon 4 Glucose Ql (U) Negative Neg mg/dL [facility] Protein.monoclonal (U) [Mass/Vol] Negative Neg mg/dL [facility] URINE OB DIP B/Oon 4 Glucose Ql (U) Negative Neg mg/dL [facility] Protein.monoclonal (U) [Mass/Vol] trace Neg mg/dL [facility] URINE OB DIP B/Oon 4 Glucose Ql (U) Negative Neg mg/dL [facility] Protein.monoclonal (U) [Mass/Vol] Negative Neg mg/dL [facility] URINE OB DIP B/Oon 4 Glucose Ql (U) Negative Neg mg/dL [facility] Protein.monoclonal (U) [Mass/Vol] Negative Neg mg/dL [facility] URINE OB DIP B/Oon 4 Glucose Ql (U) Negative Neg mg/dL [facility] [facility] Protein.monoclonal (U) [Mass/Vol] Negative Neg mg/dL [facility] OBSTETRIC ULTRASOUND WHIon 1 04-19-2022 [facility] URINE OB DIP B/Oon 3 Glucose Ql (U) Negative Neg mg/dL [facility] Protein.monoclonal (U) [Mass/Vol] Negative Neg mg/dL [facility] OBSTETRIC ULTRASOUND WHIon 1 03-22-2022 [facility] URINE OB DIP B/Oon 3 Glucose Ql (U) Negative Neg mg/dL [facility] Protein.monoclonal (U) [Mass/Vol] Negative Neg mg/dL [facility] URINE OB DIP B/Oon 3 Glucose Ql (U) Negative Neg mg/dL [facility] Protein.monoclonal (U) [Mass/Vol] Negative Neg mg/dL [facility] Vital Signs Date Time Vital Sign Value Performing Clinician Facility 11-17-2024 14:33-0400 Body mass index (BMI) [Ratio] 24.09 kg/m2 Teetee Esparza MD Work Phone: [facility] 11-17-2024 14:33-0400 Body weight 61.69 kg Teetee Esparza MD Work Phone: [facility] 11-17-2024 14:33-0400 Diastolic blood pressure 60 mm[Hg] Teetee Esparza MD Work Phone: [facility] 11-17-2024 14:33-0400 Systolic blood pressure 104 mm[Hg] Teetee Esparza MD Work Phone: [facility] 11-13-2024 19:34-0400 Body temperature 98 [degF] No Primary Care Physician [facility] 11-13-2024 19:34-0400 Diastolic blood pressure 77 mm[Hg] No Primary Care Physician [facility] 11-13-2024 19:34-0400 Heart rate 84 /min No Primary Care Physician [facility] 11-13-2024 19:34-0400 Respiratory rate 16 /min No Primary Care Physician [facility] 11-13-2024 19:34-0400 Systolic blood pressure 129 mm[Hg] No Primary Care Physician [facility] 11-13-2024 18:13-0400 SaO2% (BldA) [Mass fraction] 99 % No Primary Care Physician [facility] 11-13-2024 18:12-0400 Body height 160.02 cm No Primary Care Physician [facility] 11-13-2024 18:12-0400 Body mass index (BMI) [Ratio] 24.4 kg/m2 No Primary Care Physician [facility] 11-13-2024 18:12-0400 Body weight 62.59 kg No Primary Care Physician [facility] 11-09-2024 17:54-0400 Body height 160.02 cm No Primary Care Physician [facility] 11-09-2024 17:54-0400 Body mass index (BMI) [Ratio] 24.2 kg/m2 No Primary Care Physician [facility] 11-09-2024 17:54-0400 Body weight 62.05 kg No Primary Care Physician [facility] 11-09-2024 17:39-0400 Body temperature 98.8 [degF] No Primary Care Physician [facility] 11-09-2024 17:39-0400 Diastolic blood pressure 76 mm[Hg] No Primary Care Physician [facility] 11-09-2024 17:39-0400 Heart rate 77 /min No Primary Care Physician [facility] 11-09-2024 17:39-0400 Respiratory rate 16 /min No Primary Care Physician [facility] 11-09-2024 17:39-0400 Systolic blood pressure 118 mm[Hg] No Primary Care Physician [facility] 11-09-2024 16:36-0400 Body mass index (BMI) [Ratio] 24.37 kg/m2 Chuy Moore MD Work Phone: [facility] 11-09-2024 16:36-0400 Body weight 62.41 kg Chuy Moore MD Work Phone: [facility] 11-09-2024 16:36-0400 Diastolic blood pressure 78 mm[Hg] Chuy Moore MD Work Phone: [facility] 11-09-2024 16:36-0400 Systolic blood pressure 120 mm[Hg] Chuy Moore MD Work Phone: [facility] 11-05-2024 11:39-0400 Heart rate 99 /min No Primary Care Physician [facility] 11-05-2024 11:39-0400 SaO2% (BldA) [Mass fraction] 97 % No Primary Care Physician [facility] 11-05-2024 11:38-0400 Body temperature 98.3 [degF] No Primary Care Physician [facility] 11-05-2024 11:38-0400 Diastolic blood pressure 81 mm[Hg] No Primary Care Physician [facility] 11-05-2024 11:38-0400 Respiratory rate 18 /min No Primary Care Physician [facility] 11-05-2024 11:38-0400 Systolic blood pressure 123 mm[Hg] No Primary Care Physician [facility] 11-05-2024 11:35-0400 Body height 160.02 cm No Primary Care Physician [facility] 11-05-2024 11:35-0400 Body mass index (BMI) [Ratio] 24.4 kg/m2 No Primary Care Physician [facility] 11-05-2024 11:35-0400 Body weight 62.59 kg No Primary Care Physician [facility] 10-30-2024 08:31-0400 Body mass index (BMI) [Ratio] 23.77 kg/m2 Chuy Moore MD Work Phone: [facility] 10-30-2024 08:31-0400 Body weight 60.87 kg Chuy Moore MD Work Phone: [facility] 10-30-2024 08:31-0400 Diastolic blood pressure 60 mm[Hg] Chuy Moore MD Work Phone: [facility] 10-30-2024 08:31-0400 Systolic blood pressure 100 mm[Hg] Chuy Moore MD Work Phone: [facility] 10-16-2024 13:35-0400 Body mass index (BMI) [Ratio] 23.1 kg/m2 Marium Stevenson MD Work Phone: [facility] 10-16-2024 13:35-0400 Body weight 59.15 kg Marium Stevenson MD Work Phone: [facility] 10-16-2024 13:35-0400 Diastolic blood pressure 60 mm[Hg] Marium Stevenson MD Work Phone: [facility] 10-16-2024 13:35-0400 Systolic blood pressure 100 mm[Hg] Marium Stevenson MD Work Phone: [facility] 10-14-2024 01:11-0400 Diastolic blood pressure 65 mm[Hg] No Primary Care Physician [facility] 10-14-2024 01:11-0400 Heart rate 101 /min No Primary Care Physician [facility] 10-14-2024 01:11-0400 Systolic blood pressure 108 mm[Hg] No Primary Care Physician [facility] 10-14-2024 01:10-0400 Body temperature 98.7 [degF] No Primary Care Physician [facility] 10-14-2024 01:10-0400 Respiratory rate 16 /min No Primary Care Physician [facility] 10-14-2024 01:07-0400 Body height 160.02 cm No Primary Care Physician [facility] 10-14-2024 01:07-0400 Body mass index (BMI) [Ratio] 23.6 kg/m2 No Primary Care Physician [facility] 10-14-2024 01:07-0400 Body weight 60.32 kg No Primary Care Physician [facility] 10-10-2024 15:29-0400 Body temperature 97.6 [degF] No Primary Care Physician [facility] 10-10-2024 15:29-0400 Respiratory rate 16 /min No Primary Care Physician [facility] 10-10-2024 15:28-0400 Diastolic blood pressure 79 mm[Hg] No Primary Care Physician [facility] 10-10-2024 15:28-0400 Heart rate 103 /min No Primary Care Physician [facility] 10-10-2024 15:28-0400 Systolic blood pressure 121 mm[Hg] No Primary Care Physician [facility] 10-10-2024 15:21-0400 Body height 160.02 cm No Primary Care Physician [facility] 10-10-2024 15:21-0400 Body mass index (BMI) [Ratio] 23 kg/m2 No Primary Care Physician [facility] 10-10-2024 15:21-0400 Body weight 59 kg No Primary Care Physician [facility] 10-05-2024 09:50-0400 Body mass index (BMI) [Ratio] 22.85 kg/m2 Gina Plotts DISTRICT SUPERVISOR.CNM Work Phone: [facility] 10-05-2024 09:50-0400 Body weight 58.51 kg Gina Plotts DISTRICT SUPERVISOR.CNM Work Phone: [facility] 10-05-2024 09:50-0400 Diastolic blood pressure 60 mm[Hg] Gina Plotts DISTRICT SUPERVISOR.CNM Work Phone: [facility] 10-05-2024 09:50-0400 Systolic blood pressure 98 mm[Hg] Gina Plotts DISTRICT SUPERVISOR.CNM Work Phone: [facility] 09-17-2024 08:39-0400 Body mass index (BMI) [Ratio] 22.1 kg/m2 Crista Moomaw DISTRICT SUPERVISOR.SHACKLER Work Phone: [facility] 09-17-2024 08:39-0400 Body temperature 96.91 [degF] Crista Moomaw DISTRICT SUPERVISOR.SHACKLER Work Phone: [facility] 09-17-2024 08:39-0400 Body weight 56.6 kg Crista Moomaw DISTRICT SUPERVISOR.SHACKLER Work Phone: [facility] 09-17-2024 08:39-0400 Diastolic blood pressure 62 mm[Hg] Crista Moomaw DISTRICT SUPERVISOR.SHACKLER Work Phone: [facility] 09-17-2024 08:39-0400 Heart rate 94 /min Crista Moomaw DISTRICT SUPERVISOR.SHACKLER Work Phone: [facility] 09-17-2024 08:39-0400 Respiratory rate 18 /min Crista Moomaw DISTRICT SUPERVISOR.SHACKLER Work Phone: [facility] 09-17-2024 08:39-0400 SaO2% (BldA) [Mass fraction] 98 % Crista Moomaw DISTRICT SUPERVISOR.SHACKLER Work Phone: [facility] 09-17-2024 08:39-0400 Systolic blood pressure 112 mm[Hg] Crista Mandeepomaw DISTRICT SUPERVISOR.SHACKLER Work Phone: [facility] 08-11-2024 13:44-0400 Body mass index (BMI) [Ratio] 22.32 kg/m2 Gina Plotts DISTRICT SUPERVISOR.CNM Work Phone: [facility] 08-11-2024 13:44-0400 Body weight 57.15 kg Gina Plotts DISTRICT SUPERVISOR.CNM Work Phone: [facility] 08-11-2024 13:44-0400 Diastolic blood pressure 64 mm[Hg] Gina Plotts DISTRICT SUPERVISOR.CNM Work Phone: [facility] 08-11-2024 13:44-0400 Systolic blood pressure 98 mm[Hg] Gina Plotts DISTRICT SUPERVISOR.CNM Work Phone: [facility] 07-12-2024 15:56-0400 Body mass index (BMI) [Ratio] 21.43 kg/m2 Paulina Hamacrina DISTRICT SUPERVISOR.SHACKLER Work Phone: [facility] 07-12-2024 15:56-0400 Body weight 54.88 kg Paulina Haury DISTRICT SUPERVISOR.SHACKLER Work Phone: [facility] 07-12-2024 15:56-0400 Diastolic blood pressure 62 mm[Hg] Paulina Haury DISTRICT SUPERVISOR.SHACKLER Work Phone: [facility] 07-12-2024 15:56-0400 Systolic blood pressure 100 mm[Hg] Paulina Haury DISTRICT SUPERVISOR.SHACKLER Work Phone: [facility] 06-28-2024 08:36-0400 Body height 160 cm Gina Plotts DISTRICT SUPERVISOR.CNM Work Phone: [facility] 06-28-2024 08:36-0400 Body mass index (BMI) [Ratio] 21.19 kg/m2 Gina Plotts DISTRICT SUPERVISOR.CNM Work Phone: [facility] 06-28-2024 08:36-0400 Body weight 54.25 kg Gina Plotts DISTRICT SUPERVISOR.CNM Work Phone: [facility] 06-28-2024 08:36-0400 Diastolic blood pressure 68 mm[Hg] Gina Plotts DISTRICT SUPERVISOR.CNM Work Phone: [facility] 06-28-2024 08:36-0400 Systolic blood pressure 106 mm[Hg] Gina Plotts DISTRICT SUPERVISOR.CNM Work Phone: [facility] 04-05-2024 15:00-0500 Body mass index (BMI) [Ratio] 20.37 kg/m2 Diana Velazquez PA-C Work Phone: [facility] 04-05-2024 15:00-0500 Body temperature 98.1 [degF] Diana Velazquez PA-C Work Phone: [facility] 04-05-2024 15:00-0500 Body weight 52.16 kg Diana Velazquez PA-C Work Phone: [facility] 04-05-2024 15:00-0500 Heart rate 86 /min Diana Velazquez PA-C Work Phone: [facility] 04-05-2024 15:00-0500 Respiratory rate 18 /min Diana Velazquez PA-C Work Phone: [facility] 07-29-2023 08:45-0400 Body height 160 cm Paulina Chadwick APRN.SHACKLER Work Phone: [facility] 07-29-2023 08:45-0400 Body mass index (BMI) [Ratio] 21.97 kg/m2 Paulina Chadwick DISTRICT SUPERVISOR.SHACKLER Work Phone: [facility] 07-29-2023 08:45-0400 Body weight 56.25 kg Paulina Chadwick DISTRICT SUPERVISOR.SHACKLER Work Phone: [facility] 07-29-2023 08:45-0400 Diastolic blood pressure 64 mm[Hg] Paulina Chadwick DISTRICT SUPERVISOR.SHACKLER Work Phone: [facility] 07-29-2023 08:45-0400 Systolic blood pressure 102 mm[Hg] Paulina Chadwick JOSEFA Work Phone: [facility] 06-18-2023 15:16-0400 Respiratory rate 16 /min [facility] 06-18-2023 11:54-0400 Body temperature 98.2 [degF] [facility] 06-18-2023 11:54-0400 Diastolic blood pressure 79 mm[Hg] [facility] 06-18-2023 11:54-0400 Heart rate 82 /min [facility] 06-18-2023 11:54-0400 SaO2% (BldA) [Mass fraction] 99 % [facility] 06-18-2023 11:54-0400 Systolic blood pressure 115 mm[Hg] [facility] 06-16-2023 19:30-0400 Body height 160.02 cm [facility] 06-16-2023 19:30-0400 Body mass index (BMI) [Percentile] Per age and sex 84.2 % [facility] 06-16-2023 19:30-0400 Body mass index (BMI) [Ratio] 26 kg/m2 [facility] 06-16-2023 19:30-0400 Body weight 66.67 kg [facility] 06-08-2023 11:16-0400 Body weight 65.77 kg Raisa Macias MD Work Phone: [facility] 06-08-2023 11:16-0400 Diastolic blood pressure 68 mm[Hg] Raisa Macias MD Work Phone: [facility] 06-08-2023 11:16-0400 Systolic blood pressure 112 mm[Hg] Raisa Macias MD Work Phone: [facility] 06-01-2023 11:39-0400 Body weight 65.23 kg Raisa Macias MD Work Phone: [facility] 06-01-2023 11:39-0400 Diastolic blood pressure 70 mm[Hg] Raisa Macias MD Work Phone: [facility] 06-01-2023 11:39-0400 Systolic blood pressure 110 mm[Hg] Raisa Macias MD Work Phone: [facility] 05-25-2023 13:31-0400 Body weight 64.95 kg Raisa Macias MD Work Phone: [facility] 05-25-2023 13:31-0400 Diastolic blood pressure 68 mm[Hg] Raisa Macias MD Work Phone: [facility] 05-25-2023 13:31-0400 Systolic blood pressure 98 mm[Hg] Raisa Macias MD Work Phone: [facility] 05-18-2023 10:04-0400 Body weight 64.41 kg Esme Jordan MD Work Phone: [facility] 05-18-2023 10:04-0400 Diastolic blood pressure 60 mm[Hg] Esme Jordan MD Work Phone: [facility] 05-18-2023 10:04-0400 Systolic blood pressure 108 mm[Hg] Esme Jordan MD Work Phone: [facility] 05-04-2023 09:49-0500 Body weight 63.32 kg Raisa Macias MD Work Phone: [facility] 05-04-2023 09:49-0500 Diastolic blood pressure 74 mm[Hg] Raisa Macias MD Work Phone: [facility] 05-04-2023 09:49-0500 Systolic blood pressure 120 mm[Hg] Raisa Macias MD Work Phone: [facility] 04-20-2023 09:32-0500 Body weight 63.05 kg Esme Jordan MD Work Phone: [facility] 04-20-2023 09:32-0500 Diastolic blood pressure 64 mm[Hg] Esme Jordan MD Work Phone: [facility] 04-20-2023 09:32-0500 Systolic blood pressure 110 mm[Hg] Esme Jordan MD Work Phone: [facility] 02-16-2023 14:40-0500 Body weight 58.06 kg Siomara Lanza APRN.CNP Work Phone: [facility] 02-16-2023 14:40-0500 Diastolic blood pressure 66 mm[Hg] Siomara Pool DISTRICT SUPERVISOR.SHACKLER Work Phone: [facility] 02-16-2023 14:40-0500 Systolic blood pressure 98 mm[Hg] Siomara Pool DISTRICT SUPERVISOR.SHACKLER Work Phone: [facility] 01-20-2023 14:41-0500 Body weight 55.79 kg Esme Jodran MD Work Phone: [facility] 01-20-2023 14:41-0500 Diastolic blood pressure 72 mm[Hg] Esme Jordan MD Work Phone: [facility] 01-20-2023 14:41-0500 Systolic blood pressure 106 mm[Hg] Esme Jordan MD Work Phone: [facility] 12-22-2022 14:43-0400 Body weight 54.61 kg Raisa Macias MD Work Phone: [facility] 12-22-2022 14:43-0400 Diastolic blood pressure 70 mm[Hg] Raisa Macias MD Work Phone: [facility] 12-22-2022 14:43-0400 Systolic blood pressure 110 mm[Hg] Raisa Macias MD Work Phone: [facility] 10-27-2021 08:51-0400 Body weight 52.8 kg Siomara [place] DISTRICT SUPERVISOR.SHACKLER Work Phone: [facility] 10-27-2021 08:51-0400 Diastolic blood pressure 62 mm[Hg] Siomara [place] DISTRICT SUPERVISOR.SHACKLER Work Phone: [facility] 10-27-2021 08:51-0400 Systolic blood pressure 82 mm[Hg] Siomara Pool DISTRICT SUPERVISOR.SHACKLER Work Phone: [facility] 07-01-2021 12:51-0400 Body weight 51.53 kg Siomara [place] DISTRICT SUPERVISOR.SHACKLER Work Phone: [facility] 07-01-2021 12:51-0400 Diastolic blood pressure 60 mm[Hg] Siomara Pool DISTRICT SUPERVISOR.SHACKLER Work Phone: [facility] 07-01-2021 12:51-0400 Systolic blood pressure 100 mm[Hg] Siomara [place] DISTRICT SUPERVISOR.SHACKLER Work Phone: [facility] Encounters Encounter Date Encounter Type Care Provider Facility Start: 11-23-2024 End: 11-23-2024 ambulatory GINACRISTOFER KULKARNI Facility:[facility] Start: 11-17-2024 End: 11-17-2024 Patient encounter procedure Teetee Esparza MD Work Phone: OB/Gynecology Comment on above: Limited car e in third trimester (HCC) (Primary Dx); Supervision of high risk in third trimester (HCC); Anemia complicating , third trimester (HCC); 37 weeks gestation of (HCC) 37 weeks gestation o f (HCC); Limited care in third trimester (HCC); Supervision of high risk in third trimester (HCC); Anemia complicating , third trimester (HCC); arrhythmia affecting , antepartum (HCC) Start: 11-17-2024 End: 11-17-2024 ambulatory CHUY MOORE Facility:[facility] Start: 11-13-2024 End: 11-13-2024 ambulatory No Primary Care Physician -[facility] Start: 11-13-2024 End: 11-13-2024 Patient encounter procedure Radha Manrique CN -[facility] Work Phone: Start: 11-09-2024 End: 11-09-2024 Patient encounter procedure Gina Kulkarni CN -[facility] Work Phone: Comment on above: Limited car e in third trimester (HCC) (Primary Dx); 36 weeks gestation of (HCC); Supervision of high risk in third trimester (HCC); Anemia complicating , third trimester (HCC); arrhythmia affecting , antepartum (HCC) Start: 11-09-2024 End: 11-09-2024 ambulatory No Primary Care Physician -[facility] Start: 11-05-2024 End: 11-07-2024 ambulatory No Primary Care Physician -[facility] Comment on above: Early labor Start: 11-05-2024 End: 11-05-2024 Patient encounter procedure Radha Manrique CNM -[facility] Work Phone: Start: 10-30-2024 End: 10-30-2024 Patient encounter procedure Chuy Moore MD Work Phone: OB/Gynecology Comment on above: Limited car e in third trimester ([facility]) (Primary Dx); 34 weeks gestation of ([facility]); Supervision of high risk in third trimester ([facility]) Start: 10-30-2024 End: 10-30-2024 [facility] Facility:[facility] Start: 10-16-2024 End: 10-16-2024 Office outpatient visit 15 minutes Marium Stevenson MD Work Phone: OB/Gynecology Comment on above: 32 weeks gestation o f ([facility]) (Primary Dx); Limited care in third trimester ([facility]); Supervision of high risk in third trimester (HCC) Start: 10-16-2024 End: 10-16-2024 Patient encounter procedure Whi Tech 1 Correctional Classification Counselor [facility] Comment on above: Suspected problem wi th growth not found (Primary Dx); Late care (HCC); Limited care in third trimester ([facility]); 32 weeks gestation of ([facility]); Supervision of high risk in third trimester ([facility]) Start: 10-16-2024 End: 10-16-2024 [facility] Facility:[facility] Start: 10-14-2024 End: 10-14-2024 ambulatory No Primary Care Physician -[facility] Start: 10-14-2024 End: 10-14-2024 Patient encounter procedure Radha Manrique CNM -[facility] Work Phone: Start: 10-10-2024 End: 10-10-2024 ambulatory No Primary Care Physician -[facility] Start: 10-10-2024 End: 10-10-[address] Esme Jordan MD -[facility] Work Phone: Start: 10-06-2024 End: 10-06-2024 ambulatory Gina Kulkarni DISTRICT SUPERVISOR.CNM Work Phone: OB/Gynecology Comment on above: Breast pump Start: 10-06-2024 End: 10-06-2024 Telephone encounter Nurse Correctional Classification Counselor Joanne Shelton Work Phone: Obstetrics/Gynecology Comment on above: PRAF Start: 10-05-2024 End: 10-05-2024 Patient encounter procedure Gina Hinojosairina DISTRICT SUPERVISOR.CNM Work Phone: OB/Gynecology Comment on above: Supervision of high risk in third trimester (HCC) (Primary Dx); Late care (HCC); Screening for diabetes mellitus; Limited care in third trimester (HCC); 31 weeks gestation of (HCC) Start: 10-05-2024 End: 10-05-2024 ambulatory GINA KULKARNI Facility:[facility] Start: 10-02-2024 End: 10-24-2024 Telephone encounter Raisa Macias MD Work Phone: OB/Gynecology Comment on above: breast pump Start: 09-17-2024 End: 09-17-2024 ambulatory CRISTA MOOMAW Facility:[facility] Start: 09-17-2024 End: 09-17-2024 Patient encounter procedure Crista Vasquez DISTRICT SUPERVISOR.SHACKLER Work Phone: [facility] Comment on above: Diarrhea, unspecifie d type (Primary Dx) Start: 08-14-2024 End: 08-14-2024 Telephone encounter Nurse Correctional Classification Counselor Joanne Shelton Work Phone: Obstetrics/Gynecology Comment on above: PRAF Start: 08-11-2024 End: 08-11-2024 Patient encounter procedure Gina Hinojosairina DISTRICT SUPERVISOR.CNM Work Phone: OB/Gynecology Comment on above: Screening for diabet es mellitus (Primary Dx); 23 weeks gestation of (HCC); Late care (HCC); Encounter for supervision of high risk in second trimester, antepartum (HCC); Short interval between pregnancies affecting in second trimester, antepartum (HCC) Start: 08-11-2024 End: 08-11-2024 ambulatory DIANA VLEAZQUEZ Facility:[facility] Start: 08-09-2024 End: 08-10-2024 ambulatory Gina Kulkarni APRN.ARELIS Work Phone: OB/Gynecology Comment on above: Reschedule appt Start: 07-12-2024 End: 07-12-2024 Patient encounter procedure Whi Tech 1 Correctional Classification Counselor [facility] Comment on above: Encounter for anatomic survey (HCC) (Primary Dx); 19 weeks gestation of (HCC) Encounter for superv ision of high risk in second trimester, antepartum (HCC) (Primary Dx); 19 weeks gestation of (HCC); Short interval between pregnancies affecting in second trimester, antepartum (HCC); Rubella non-immune status, antepartum (HCC) Start: 07-12-2024 End: 07-12-2024 ambulatory GINA KULKARNI Facility:[facility] Start: 06-28-2024 End: 08-28-2024 Follow-up encounter Gina Kulkarni APRN.ARELIS Work Phone: OB/Gynecology Start: 06-28-2024 End: 06-28-2024 Patient encounter procedure Gina Kulkarni APRN.ARELIS Work Phone: OB/Gynecology Comment on above: with fetus of unknown gestational age (HCC) (Primary Dx); 17 weeks gestation of (HCC); Short interval between pregnancies affecting in second trimester, antepartum (HCC); Late care (HCC); Encounter for supervision of high risk in second trimester, antepartum (HCC); Alcohol consumption during in first trimester (HCC) Start: 06-28-2024 End: 06-28-2024 ambulatory DIANA VELAZQUEZ Facility:[facility] Start: 04-14-2024 End: 04-14-2024 Patient encounter procedure Donald De La Torre PA-C Work Phone: Orthopaedics Start: 04-13-2024 End: 04-14-2024 ambulatory Diana Velazquez PA-C Work Phone: [facility] [place] Start: 04-13-2024 End: 04-14-2024 Follow-up encounter Diana Velazquez PA-C Work Phone: [facility] [place] Comment on above: Visit follow up Start: 04-07-2024 End: 04-07-2024 Telephone encounter Diana Velazquez PA-C Work Phone: [facility] [place] Comment on above: Results Start: 04-05-2024 End: 04-05-2024 Subsequent hospital visit by physician Xr [facility] [place] Work Phone: Radiology Comment on above: Bony abnormality [Q7 9.9] Start: 04-05-2024 End: 04-05-2024 [facility] [facility] Facility:[facility] Start: 04-05-2024 End: 04-05-2024 Patient encounter procedure Diana Velazquez PA-C Work Phone: [facility] [place] Comment on above: Bony abnormality (Pr imary Dx) Start: 03-16-2024 End: 03-16-2024 Telephone encounter Siomara Lanza DISTRICT SUPERVISOR.[employer]ACK[employer] Work Phone: OB/Gynecology Comment on above: Results Start: 03-15-2024 End: 03-15-2024 [facility] Start: 03-13-2024 End: 03-14-2024 ambulatory Siomara Lanza DISTRICT SUPERVISOR[employer] Work Phone: OB/Gynecology Comment on above: Using the bathroom Start: 12-01-2023 End: 12-01-2023 ambulatory No Primary Care Physician Facility:[facility] Start: 09-29-2023 Telephone encounter Raisa messina MD Work Phone: OB/Gynecology Comment on above: Breast Pump Start: 09-05-2023 ambulatory Raisa Mooney Work Phone: OB/Gynecology Comment on above: medications to take for a cold when Start: 09-02-2023 Telephone encounter Raisa messina MD Work Phone: OB/Gynecology Comment on above: Orders Start: 07-29-2023 End: 07-29-2023 Patient encounter procedure Paulina Chadwick APRN.CNP Work Phone: OB/Gynecology Comment on above: care and examination (Primary Dx); Abnormal glucose affecting ; Constipation, unspecified constipation type; Sacral mass Start: 06-17-2023 ambulatory Marium islas MD Work Phone: OB/Gynecology Comment on above: Ob Delivery Note Start: 06-16-2023 End: 06-18-2023 Evaluation and management of inpatient [facility] [place] Work Phone: Start: 06-08-2023 End: 06-08-2023 Patient [...] trimester Start: 05-31-2023 ambulatory [facility] Comment on above: Population Health Na vigation [...] above: Question Start: 04-20-2023 ambulatory Siomara Lanza DISTRICT SUPERVISOR[employer] Work Phone: OB/Gynecology Comment on above: Glucose Test Start: 04-20-2023 End: 04-20-2023 Patient encounter procedure Esme Jordan MD Work Phone: OB/Gynecology Comment on above: Supervision of high risk in third trimester (Primary Dx); Abnormal glucose in , antepartum; 32 weeks gestation of Start: 04-10-2023 ambulatory Raisa Mooney Work Phone: OB/Gynecology Comment on above: Glucose Test Start: 02-16-2023 End: 02-16-2023 Patient encounter procedure Siomara Lanza DISTRICT SUPERVISOR[employer] Work Phone: OB/Gynecology Comment on above: Supervision [...] of first Start: 12-08-2022 Telephone encounter Siomara song DISTRICT SUPERVISOR.[employer] Work Phone: OB/Gynecology Comment on above: Orders Start: 11-26-2022 Telephone encounter Siomara song DISTRICT SUPERVISOR.[employer] Work Phone: OB/Gynecology Comment on above: Results Start: 10-27-2021 End: 10-27-2021 Patient encounter procedure Siomara Lanza DISTRICT SUPERVISOR.[employer] Work Phone: OB/Gynecology Comment on above: Encounter for survei llance of contraceptive pills (Primary Dx) Start: 10-24-2021 Refill Siomaramagnolia Lanza DISTRICT SUPERVISOR.[employer] Work Phone: OB/Gynecology Comment on above: Refill Request Start: 07-01-2021 End: 07-01-2021 Patient encounter procedure Siomara Lanza DISTRICT SUPERVISOR.[employer] Work Phone: OB/Gynecology Comment on above: Encounter for survei llance of contraceptive pills (Primary Dx) Procedures Date Procedure Procedure Detail Performing Clinician Start: 11-17-2024 Us preg uterus after 1st trimest 03/08 gestation Chuy Moore MD Work Phone: Start: 11-13-2024 Measurement of pH in vaginal fluid specimen using nitrazine yellow for detection of rupture of amniotic membrane No Primary Care Physician Comment on above: Amniotic fluid not p resent indicates No Rupture of FetalMembranes at time of specimen collection. Start: 11-09-2024 Urnls dip stick/tabl et rgnt non-auto w/o micrscp Chuy Moore MD Work Phone: Start: 11-05-2024 Measurement of pH in vaginal fluid specimen using nitrazine yellow for detection of rupture of amniotic membrane No Primary Care Physician Comment on above: Amniotic fluid not p resent indicates No Rupture of FetalMembranes at time of specimen collection. Start: 10-30-2024 Urnls dip stick/tabl et rgnt non-auto w/o micrscp Chuy Moore MD Work Phone: Start: 10-16-2024 Us preg uterus after 1st trimest 03/08 gestation Gina Kulkarni DISTRICT SUPERVISOR.CNM Work Phone: Start: 10-10-2024 Urnls dip stick/tabl et reagent auto microscopy No Primary Care Physician Start: 10-10-2024 Urine culture No Primar y Care Physician Start: 10-05-2024 Urnls dip stick/tabl et rgnt non-auto w/o micrscp Gina Kulkarni DISTRICT SUPERVISOR.CNM Work Phone: Start: 07-12-2024 Us preg uterus after 1st trimest 1/ gestation Gina Kulkarni DISTRICT SUPERVISOR.CNM Work Phone: Start: 06-28-2024 Antibody screen CURTIS KULKARNI Comment on above: Order Comment: Speci men Type: BLOOD SPECIMENOrdering Facility: [facility] Address: [address] [place] [address] Performed By: #### T SPN ####CC MAIN BLOOD BANKCLIA [id number] [address] [place] Start: 06-28-2024 BACTERIAL VAGINOSIS NAAT Gina Kulkarni DISTRICT SUPERVISOR.CNM Work Phone: Start: 06-28-2024 Iadna chlamydia trac homatis amplified probe tq Gina Kulkarni DISTRICT SUPERVISOR.CNM Work Phone: Start: 06-28-2024 Us uterus l imited 1/> fetuses Gina Kulkarni DISTRICT SUPERVISOR.CNM Work Phone: Start: 06-08-2023 URINE OB DIP [...] 02-16-2023 URINE OB DIP B/O Bita Manrique APRN.ARELIS Work Phone: Start: 02-16-2023 Us preg uterus [...] DTaP,Tdap,Td Vaccine (7 - Td or Tdap) [facility] Start: 06-28-2025 GC (Gonorrhea) Scree meng () GC (Gonorrhea) Screening () [facility] Start: 06-28-2025 Screening for Chlamy grace trachomatis Chlamydia Screening () [facility] Start: 11-23-2024 End: 11-23-2024 Patient encounter procedure 11/23/2024 11:15 AM EDT Routine Office Visit OB/Gynecology [address] [place] [address] Gina Kulkarni APRN.CN [address] [place] [address] OB OB/Gynecology Comment on above: OB Start: 11-17-2024 End: 11-17-2024 Patient encounter procedure Maternal Medicine Comment on above: GROWTH OB Start: 11-13-2024 Nonstress test [facility] Start: 11-13-2024 Obstetric monitoring [facility] Start: 11-13-2024 Vital signs measurements [facility] Start: 11-13-2024 [facility] Start: 11-13-2024 Patient discharge [facility] Start: 11-09-2024 Nonstress test [facility] Start: 11-09-2024 Obstetric monitoring [facility] Start: 11-09-2024 Vital signs measurements [facility] Start: 11-09-2024 [facility] Start: 11-09-2024 End: 11-09-2024 Patient encounter procedure 11/09/2024 4:30 PM EDT Routine Office Visit OB/Gynecology [address] [place] [address] Chuy Moore MD [address] [place] [address] OB OB/Gynecology Comment on above: OB Start: 11-09-2024 End: 11-09-2025 OBSTETRIC ULTRASOUND WHI OBSTETRIC ULTRASOUND WHI Anc Imaging Routine 36 weeks gestation of ([facility]) Limited care in third trimester ([facility]) Supervision of high risk in third trimester ([facility]) Anemia complicating , third trimester ([facility]) arrhythmia affecting , antepartum ([facility]) Expected: 11/09/2024, Expires: 11/09/2025 [facility] Comment on above: Expected: 11/09/2024 , Expires: 11/09/2025 Start: 11-09-2024 Patient discharge [facility] Start: 11-06-2024 Influenza vaccination [facility] Start: 11-06-2024 RSV Vaccine (1 - Ris k 1-dose series) RSV Vaccine (1 - Risk 1-dose series) [facility] Start: 11-05-2024 Nonstress test [facility] Start: 11-05-2024 Obstetric monitoring [facility] Start: 11-05-2024 Vital signs measurements [facility] Start: 11-05-2024 [facility] Start: 11-05-2024 Patient discharge [facility] Start: 10-30-2024 End: 10-30-2024 Patient encounter procedure 10/30/2024 8:30 AM EDT Routine Office Visit OB/Gynecology [address] [place] [address] Chuy Moore MD [address] [place] [address] OB OB/Gynecology Comment on above: OB Start: 10-16-2024 End: 10-16-2024 Patient encounter procedure Maternal Medicine Comment on above: Growth OB Start: 10-14-2024 Nonstress test [facility] Start: 10-14-2024 Obstetric monitoring [facility] Start: 10-14-2024 Vital signs measurements [facility] Start: 10-14-2024 [facility] Start: 10-14-2024 Patient discharge [facility] Start: 10-10-2024 End: 10-10-2024 [facility] Start: 10-10-2024 Nonstress test [facility] Start: 10-10-2024 Obstetric monitoring [facility] Start: 10-10-2024 Vital signs measurements [facility] Start: 10-10-2024 Patient discharge [facility] Start: 10-10-2024 [facility] Start: 09-11-2024 End: 09-11-2024 Patient encounter procedure 09/11/2024 1:50 PM EDT Routine Office Visit OB/Gynecology [address] [place] [address] Marium Stevenson MD [address] [place] [address] Glucose/OB OB/Gynecology Comment on above: Glucose/OB Start: 09-11-2024 End: 09-11-2024 ambulatory 09/11/2024 1:30 PM EDT Results Only [facility] [address] [place] [address] Glucose [facility] Comment on above: Glucose Start: 08-11-2024 End: 11-10-2024 ANEMIA REFLEX PANEL ANEMIA REFLEX PANEL Lab Routine Screening for diabetes mellitus Encounter for supervision of high risk in second trimester, antepartum (HCC) Short interval between pregnancies affecting in second trimester, antepartum (HCC) Late care (HCC) Expected: 08/11/2024, Expires: 11/10/2024 [facility] Comment on above: Expected: 08/11/2024 , [...] of (HCC) Expected: 08/11/2024, Expires: 08/11/2025 [facility] Work Phone: Comment on above: Expected: 08/11/2024 , Expires: 08/11/2025 Start: 08-11-2024 End: 08-11-2024 Patient encounter procedure 08/11/2024 2:00 PM EDT Routine Office Visit OB/Gynecology [address] [place] [id number] Gina Kulkarni APRN.CNM [address] [place] [address] OB OB/Gynecology Comment on above: OB Start: 08-11-2024 End: 08-11-2025 SYPHILIS TREPONEMAL W/REFLEX SYPHILIS TREPONEMAL W/REFLEX Lab Routine Screening for diabetes mellitus Encounter for supervision of high risk in second trimester, antepartum (HCC) Short interval between pregnancies affecting in second trimester, antepartum (HCC) Late care (HCC) Expected: 08/11/2024, Expires: 08/11/2025 [facility] Comment on above: Expected: 08/11/2024 , Expires: 08/11/2025 Start: 08-10-2024 End: 08-10-2024 Patient encounter procedure 08/10/2024 10:30 AM EDT Routine Office Visit OB/Gynecology [address] [place] [address] Gina Kulkarni APRN.CNM [address] [place] [id number] Jamison Fuller OB OB/Gynecology Comment on above: Est New OB Start: 07-28-2024 End: 07-28-2024 Patient encounter procedure 07/28/2024 8:15 AM EDT Office Visit OB/Gynecology [address] [place] [address] Paulina Chadwick, DISTRICT SUPERVISOR.SHACKLER [address] [place] [address] Annual OB/Gynecology Comment on above: Annual Start: 07-26-2024 End: 07-26-2024 Patient encounter procedure 07/26/2024 10:30 AM EDT Routine Office Visit OB/Gynecology [address] [place] [address] Radha Manrique APRN.CNM [address] [place] [address] , OB/Gynecology Comment on above: , Start: 07-12-2024 End: 07-12-2024 Patient encounter procedure Maternal Medicine Comment on above: Anatomy ob Start: 06-28-2024 End: 09-27-2024 ANEMIA REFLEX PANEL [facility] Work Phone: Comment on above: Expected: 06/28/2024 , Expires: 09/27/2024 Start: 06-28-2024 End: 09-27-2024 Chromosome 21 trisomy [Presence] in Blood or Tissue by Cytogenetics [facility] Comment on above: Expected: 06/28/2024 , Expires: 09/27/2024 Start: 06-28-2024 End: 06-28-2025 OBSTETRIC ULTRASOUND WHI OBSTETRIC ULTRASOUND WHI Anc Imaging Routine with fetus of unknown gestational age (HCC) Expected: 06/28/2024, Expires: 06/28/2025 [facility] Comment on above: Expected: 06/28/2024 , Expires: 06/28/2025 Start: 03-15-2024 End: 03-15-2024 ambulatory 03/15/2024 12:00 PM EST Results Only [place] [facility] [address] [place] [address] [place] [facility] Start: 03-14-2024 End: 06-13-2024 Bacteria identified in Urine by Culture URINE CULTURE Microbiology Routine UTI symptoms Expected: 03/14/2024, Expires: 06/13/2024 [facility] Work Phone: Comment on above: Expected: 03/14/2024 , Expires: 06/13/2024 Start: 03-14-2024 End: 06-13-2024 Urinalysis complete panel - Urine URINALYSIS, WITH MICROSCOPIC Lab Routine UTI symptoms Expected: 03/14/2024, Expires: 06/13/2024 [facility] Comment on above: Expected: 03/14/2024 , Expires: 06/13/2024 Start: 11-25-2023 Chlamydia Screening () Chlamydia Screening () [facility] Start: 11-25-2023 GC (Gonorrhea) Scree meng () GC (Gonorrhea) Screening () [facility] Start: 11-25-2023 Screening for Chlamy grace trachomatis Chlamydia Screening () [facility] Start: 11-07-2023 Covid-19 Vaccine () Covid-19 Vaccine () [facility] Start: 11-07-2023 Influenza vaccination [facility] Start: 09-27-2023 End: 12-27-2023 Hemoglobin A1c in Blood HEMOGLOBIN A1C Lab Routine Abnormal glucose affecting Expected: 09/27/2023, Expires: 12/27/2023 [facility] Work Phone: Comment on above: Expected: 09/27/2023 , Expires: 12/27/2023 Start: 06-18-2023 Patient discharge [facility] Start: 06-17-2023 Administration of medication [facility] Start: 06-17-2023 Application of ice collar, cap or bag [facility] Start: 06-17-2023 Catheterization of vein [facility] Start: 06-17-2023 Introduction of urin ivet catheter [facility] Start: 06-17-2023 Measuring intake and output [facility] Start: 06-17-2023 Notification of physician [facility] Start: 06-17-2023 Procedure discontinued [facility] Start: 06-17-2023 Provision of activit y privileges [facility] Start: 06-17-2023 Vital signs measurements [facility] Start: 06-17-2023 End: 06-17-2023 [facility] Start: 06-17-2023 Documentation procedure [facility] Start: 06-17-2023 Consultation [facility] Start: 06-16-2023 Admission procedure [facility] Start: 06-16-2023 Verification routine [facility] Start: 03-08-2023 Behavioral Health Screening Behavioral Health Screening [facility] Start: 03-08-2023 Depression Assessment Depression Ass essment [facility] Start: 02-16-2023 End: 05-18-2023 CBC W Auto Differential panel - Blood CBC + DIFF Lab Routine Supervision of high risk in second trimester 23 weeks gestation of Expected: 02/16/2023, Expires: 05/18/2023 [facility] Work Phone: Comment on above: Expected: 02/16/2023 , Expires: 05/18/2023 Start: 02-16-2023 End: 05-18-2023 GEST GLUC SCREEN, 1-HR, 50 GM, NON-FASTING GEST GLUC SCREEN, 1-HR, 50 GM, NON-FASTING Lab Routine Supervision of high risk in second trimester 23 weeks gestation of Expected: 02/16/2023, Expires: 05/18/2023 [facility] Work Phone: Comment on above: Expected: 02/16/2023 , Expires: 05/18/2023 Start: 02-16-2023 End: 05-18-2023 SYPHILIS TOTAL W/REFLEX SYPHILIS TOTAL W/REFLEX Lab Routine Supervision of high risk in second trimester 23 weeks gestation of Expected: 02/16/2023, Expires: 05/18/2023 [facility] Work Phone: Comment on above: Expected: 02/16/2023 , Expires: 05/18/2023 Start: 01-21-2023 End: 01-22-2024 OBSTETRIC ULTRASOUND WHI OBSTETRIC ULTRASOUND WHI Anc Imaging Routine Supervision of high risk in second trimester Expected: 01/21/2023, Expires: 01/22/2024 [facility] Work Phone: Comment on above: Expected: 01/21/2023 , Expires: 01/22/2024 Start: 12-22-2022 End: 12-23-2023 OBSTETRIC ULTRASOUND WHI OBSTETRIC ULTRASOUND WHI Anc Imaging Routine 15 weeks gestation of Encounter for care in first trimester of first Expected: 12/22/2022, Expires: 12/23/2023 [facility] Work Phone: Comment on above: Expected: 12/22/2022 , Expires: 12/23/2023 Start: 12-08-2022 End: 02-07-2023 SEQUENTIAL SCN FIRST TRIMESTER [facility] Work Phone: Comment on above: Expected: 12/08/2022 , Expires: 02/07/2023 Start: 12-08-2022 End: 02-07-2023 SEQUENTIAL SCN SECOND TRIM SEQUENTIAL SCN SECOND TRIM Lab Routine Nuchal translucency of fetus on ultrasound Expected: 12/08/2022, Expires: 02/07/2023 [facility] Work Phone: Comment on above: Expected: 12/08/2022 , Expires: 02/07/2023 Start: 11-06-2022 Covid-19 Vaccine () Covid-19 Vaccine () [facility] Start: 11-06-2022 Influenza vaccination Influenza Vacc ine (#1) [facility] Start: 03-08-2022 Depression Assessment Depression Ass essment [facility] Start: 2022 Anxiety Screening Anxiety Screening [facility] Start: 2022 Depression Screening Depression Scre ening [facility] Start: 2022 Hepatitis C Screening Hepatitis C Sc wes [facility] Start: 2022 HIV Screening HIV Screening [facility] Start: 11-06-2021 Influenza vaccination C [facility] Start: 2020 Meningococcal B Vacc ine (1 of 2 - Standard) Meningococcal B Vaccine (1 of 2 - Standard) [facility] Start: 2020 Meningococcal B Vacc ine: Consider Based On Risk (1 of 2 - Patient Seeks Protection) Meningococcal B Vaccine: Consider Based On Risk (1 of 2 - Patient Seeks Protection) [facility] Start: 2020 MENINGOCOCCAL CONJUG ATE (1 - 2-dose series) MENINGOCOCCAL CONJUGATE (1 - 2-dose series) [facility] Start: 2020 Meningococcal Conjug ate Vaccine (1 - 2-dose series) Meningococcal Conjugate Vaccine (1 - 2-dose series) [facility] Start: 2020 Meningococcal Conjug ate Vaccine (2 - 2-dose series) Meningococcal Conjugate Vaccine (2 - 2-dose series) [facility] Start: 2019 CHLAMYDIA SCREENING (<18) CHLA MYDIA SCREENING (<18) [facility] Start: 2019 GC (GONORRHEA) SCREE MENG (<18) GC (GONORRHEA) SCREENING (<18) [facility] Start: 2018 PEDS TO ADULT TRANSI TION ANNUAL ASSESSMENT PEDS TO ADULT TRANSITION ANNUAL ASSESSMENT [facility] Start: 05-06-2017 HPV Vaccine (2 - 2-d ose series) HPV Vaccine (2 - 2-dose series) [facility] Start: 2016 Adult depression screening assessment DEPRESSION SCREENING [facility] Start: 2016 PEDS TO ADULT TRANSI TION INITIAL DISCUSSION PEDS TO ADULT TRANSITION INITIAL DISCUSSION [facility] Start: 2015 HPV VACCINE (1 - 2-d ose series) HPV VACCINE (1 - 2-dose series) [facility] Start: 2015 Urine microalbumin profile [facility] Start: 2014 MENINGOCOCCAL B: Con coping machine assembler based on risk (1 of 2 - Risk Bexsero 2-dose series) MENINGOCOCCAL B: Consider based on risk (1 of 2 - Risk Bexsero 2-dose series) [facility] Start: 2013 HPV Vaccine (1 - 2-d ose series) HPV Vaccine (1 - 2-dose series) [facility] Start: 2009 COVID-19 VACCINE (1) COVID-19 VACCIN E (1) [facility] Start: 01-23-2009 VARICELLA (2 of 2 - 2-dose childhood series) VARICELLA (2 of 2 - 2-dose childhood series) [facility] Start: 2004 COVID-19 VACCINE (#1) COVID-19 VACCI NE (#1) [facility] Bacteria identified in Urine by Culture BACTERIAL CULTURE, URINE Microbiology Routine with fetus of unknown gestational age ([facility]) 06/28/2024 9:18 AM EDT [facility] Erythrocyte mean corpuscular volume determination [facility] Fibronectin. [Mass/volume] in Vaginal fluid [facility] Hematocrit [Volume Fraction] of Blood [facility] Hemoglobin [Mass/vol ume] in Blood [facility] Leukocytes [#/volume ] in Blood [facility] Mean corpuscular hemoglobin concentration determination [facility] Mean corpuscular hemoglobin determination [facility] Neutrophil count [facility] Neutrophil percent differential count [facility] End: 04-03-2025 OBSTETRIC ULTRASOUND WHI OBSTETRIC ULTRASOUND I Anc Imaging Routine Late care ([facility]) Limited care in third trimester ([facility]) 31 weeks gestation of ([facility]) Supervision of high risk in third trimester ([facility]) Once per month for 5 Occurrences starting 10/05/2024 until 04/03/2025 [facility] Work Phone: Comment on above: Once per month for 5 Occurrences starting 10/05/2024 until 04/03/2025 Patient Education [facility] Work Phone: Patient referral [facility] Work Phone: Platelets [#/volume] in Blood [facility] Red blood cell count [facility] Red cell distributio n width determination [facility] ROUTINE, GR OUP B STREP PCR ROUTINE, GROUP B STREP PCR Microbiology Routine 36 weeks gestation of 05/18/2023 10:31 AM EDT [facility] Work Phone: ROUTINE, GR OUP B STREPTOCOCCUS BY PCR ROUTINE, GROUP B STREPTOCOCCUS BY PCR Microbiology Routine 36 weeks gestation of ([facility]) Limited care in third trimester ([facility]) Supervision of high risk in third trimester ([facility]) Ordered: 11/09/2024 [facility] Work Phone: Comment on above: Ordered: 11/09/2024 Urine culture [facility] URINE OB DIP B/O URINE OB DIP B/ O Lab Routine Limited care in third trimester ([facility]) Supervision of high risk in third trimester ([facility]) Anemia complicating , third trimester ([facility]) 37 weeks gestation of ([facility]) Ordered: 11/17/2024 [facility] Work Phone: Comment on above: Ordered: 11/17/2024 End: 05-14-2025 XR Lumbar spine 3 Views XR LUMBAR GENERAL 3V AP/LAT/L5-S1 Radiology Routine Bony abnormality 1 Occurrences starting 04/14/2024 until 05/14/2025 [facility] Work Phone: Comment on above: 1 Occurrences starti ng 04/14/2024 until 05/14/2025 XR Sacrum and Coccyx 3 Views XR SACRUM/COCCYX 3V AP/LAT Radiology Routine Bony abnormality 04/05/2024 3:58 PM EST [facility] Work Phone: 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.[employer] Work Phone: [facility] Work Phone: 10-31-2008 measles, mumps and rubella virus vaccine Siomara Pool DISTRICT SUPERVISOR.[employer] Work Phone: [facility] Work Phone: 10-31-2008 poliovirus vaccine, inactivated Siomara [place] DISTRICT SUPERVISOR.[facility] Work Phone: [facility] Work Phone: 10-31-2008 varicella virus vaccine Red e [place] DISTRICT SUPERVISOR.[facility] Work Phone: [facility] Work Phone: 08-03-2007 hepatitis A vaccine, unspecified formulation Siomara [place] DISTRICT SUPERVISOR.[employer] Work Phone: [facility] Work Phone: 06-23-2005 diphtheria, tetanus toxoids and acellular pertussis vaccine Siomara Pool DISTRICT SUPERVISOR.[employer] Work Phone: [facility] Work Phone: 06-23-2005 haemophilus influenz ae type b vaccine, HbOC conjugate Siomara Pool DISTRICT SUPERVISOR.[facility] Work Phone: [facility] Work Phone: 06-23-2005 pneumococcal conjuga te vaccine, 7 valent Siomara Pool DISTRICT SUPERVISOR.[facility] Work Phone: [facility] Work Phone: 03-25-2005 hepatitis B vaccine, pediatric or pediatric/adolescent dosage Siomara Pool DISTRICT SUPERVISOR.[facility] Work Phone: [facility] Work Phone: 03-25-2005 varicella virus vaccine Red e [place] DISTRICT SUPERVISOR.[facility] Work Phone: [facility] Work Phone: 03-24-2005 measles, mumps and rubella virus vaccine Siomara Pool DISTRICT SUPERVISOR.[employer] Work Phone: [facility] Work Phone: 2004 diphtheria, tetanus toxoids and acellular pertussis vaccine Siomara [place] DISTRICT SUPERVISOR.[facility] Work Phone: [facility] Work Phone: 2004 haemophilus influenz ae type b vaccine, HbOC conjugate Siomara Pool DISTRICT SUPERVISOR.[facility] Work Phone: [facility] Work Phone: 2004 pneumococcal conjuga te vaccine, 7 valent Siomara [place] DISTRICT SUPERVISOR.[employer] Work Phone: [facility] Work Phone: 2004 poliovirus vaccine, inactivated Siomara Pool DISTRICT SUPERVISOR.[facility] Work Phone: [facility] Work Phone: 2004 diphtheria, tetanus toxoids and acellular pertussis vaccine Siomara Pool DISTRICT SUPERVISOR.[facility] Work Phone: [facility] Work Phone: 2004 haemophilus influenz ae type b vaccine, HbOC conjugate Siomara [place] DISTRICT SUPERVISOR.[facility] Work Phone: [facility] Work Phone: 2004 pneumococcal conjuga te vaccine, 7 valent Siomara [place] DISTRICT SUPERVISOR.[facility] Work Phone: [facility] Work Phone: 2004 poliovirus vaccine, inactivated Siomara [place] DISTRICT SUPERVISOR.[facility] Work Phone: [facility] Work Phone: 2004 diphtheria, tetanus toxoids and acellular pertussis vaccine Siomara Pool DISTRICT SUPERVISOR.[facility] Work Phone: [facility] Work Phone: 2004 haemophilus influenz ae type b vaccine, HbOC conjugate Siomara [place] DISTRICT SUPERVISOR.[facility] Work Phone: [facility] Work Phone: 2004 hepatitis B vaccine, pediatric or pediatric/adolescent dosage Siomara [place] DISTRICT SUPERVISOR.[facility] Work Phone: [facility] Work Phone: 2004 pneumococcal conjuga te vaccine, 7 valent Siomara Pool DISTRICT SUPERVISOR.[facility] Work Phone: [facility] Work Phone: 2004 poliovirus vaccine, inactivated Siomara [place] DISTRICT SUPERVISOR.[facility] Work Phone: [facility] Work Phone: 2004 hepatitis B vaccine, pediatric or pediatric/adolescent dosage Siomaramagnolia CorriganPoolsharda RIVERO Work Phone: [facility] Work Phone: Payers Date Payer Category Payer Self-pay [id number] 2022 Unknown [id number] [address] [facility] MEDICAID [facility] COMMUNITY PLAN MEDICAID [id number] 2019-Present [phone] [address] [place] [address] Medicaid [id number] 2019 Medicaid [id number] Unknown [id number] Unknown [id number] Unknown [id number] Unknown [id number] Unknown [id number] Unknown [id number] Social History Date Type Detail Facility Start: 05-08-2019 End: 10-27-2021 Tobacco smoking status NHIS Never smoked tobacco [facility] Start: 05-08-2019 End: 10-27-2021 Tobacco use and exposure Smokeless tobacco non-user [facility] Start: 07-01-2021 End: 11-09-2024 Alcohol intake Lifetime non-drinker (finding) [facility] Start: 05-06-2021 History SDOH Alcohol Frequency 1 [facility] Start: 2004 Sex Assigned At Not on file C [facility] Start: 06-21-2021 End: 10-27-2021 Exposure to SARS-CoV-2 (event) Not sure [facility] Work Phone: Start: 11-24-2022 End: 04-05-2024 History of Social function [facility] Start: 11-24-2022 End: 04-05-2024 Tobacco use panel [facility] Start: 02-07-2012 National Score (1-10 0), lower number is lower risk 89 [facility] Start: 09-18-2022 [facility] Start: 06-16-2023 Tobacco smoking stat [facility] Unknown if ever smoked [facility] Start: 2004 Sex Assigned At Female W [facility] Start: 06-26-2024 Education 13 [facility] Start: 06-26-2024 Gender identity Identifies as female gender (finding) [facility] Start: 06-26-2024 Sexual orientation Heterosexual (juanpablo teresa) [facility] Medical Equipment Procedure Code Equipment Code Equipment Origin al Text Equipment Identifier Dates Use as directed to check glucose levels up to seven times daily. [id number], [id number], [id number], [id number] Start: 04-13-2023 End: 07-29-2023 Comment on above: Use as directed to c heck glucose levels up to seven times daily. Goals Date Patient Goal Desired Activity /State Personal health goal Personal health goal Clinical Notes 07-01-2021 to 11-17-2024 Quick Notes - Teetee Johnston MD - 11/17/2024 3:01 PM EDTPrenatal Quick Notes - Teetee Johnston MD - 11/17/2024 3:01 PM EDTPatient InstructionsPatient Instructions Note Date & Type Note Facility 11-17-2024 Note Indication Evaluation of growth late care Impression REMOTE READ - Single, live, intrauterine . - presentation is cephalic. - The biometry is consistent with the assigned gestational dating. - The EFW is 3390 g, at the 75%. AC is at the 95%. - Amniotic fluid volume is normal amount with an MVP of 4.1 cm and KATELIN of 14.9 cm. - The placenta is posterior, fundal. - No malformations visualized on a limited survey as detailed below. Recommendations Additional follow-up as clinically indicated. Maternal Assessment Height 160 cm Height (ft) 5 ft Height (in) 3 in Physical Exam Initial weight (lb) 119 lb Initial BMI 21.08 kg/m Maternal assessment other: 2 Para 1 Method Transabdominal ultrasound examination Garza . Number of fetuses: 1 Dating GA by prior assessment 37 w + 3 d JEFFERY by prior assessment: 12/05/2024 Ultrasound examination on: 11/17/2024 GA by U/S based upon: AC, BPD, Femur, HC GA by U/S 37 w + 4 d JEFFERY by U/S: 12/04/2024 Assigned: based on stated JEFFERY, selected on 11/17/2024 Assigned GA 37 w + 3 d Assigned JEFFERY: 12/05/2024 General Evaluation Cardiac activity present. FHR 137 bpm. movements: present. Presentation: cephalic Placenta: Placental site: posterior, fundal Umbilical cord: Cord vessels: 3 vessel cord Amniotic fluid: Amount of AF: normal amount. MVP 4.1 cm. KATELIN 14.9 cm. Q1 4.1 cm, Q2 2.9 cm, Q3 4.1 cm, Q4 3.8 cm Growth Overview Exam date GA BPD (mm) HC (mm) AC (mm) FL (mm) HL (mm) EFW (g) 06/28/2024 17w 2d 35.4 31% 139.3 44% 126.4 79% 22.5 35% 07/12/2024 19w 1d 39.9 12% 162.2 43% 150.8 82% 30.7 77% 30.5 82% 312 80% 10/16/2024 32w 6d 87.2 95% 311.3 69% 307.2 92% 64.6 78% 2390 82% 11/17/2024 37w 3d 93.6 84% 328.9 41% 352 95% 71.8 69% 3390 75% Biometry Standard BPD 93.6 mm 38w 1d 84% Hadlock OFD 113.8 mm 35w 3d 38% Nicolaides HC 328.9 mm 36w 5d 41% Cristina AC 352.0 mm 39w 1d 95% Hadlock Femur 71.8 mm 36w 2d 69% Cristina EFW 3,390 g 38w 5d 75% Hadlock EFW (lb) 7 lb EFW (oz) 8 oz EFW by: Hadlock (HC-AC-FL) Extended Family Services Specialist 5.3 mm Extremities / Bony Struc FL / HC 0.22 Other Structures FHR 137 bpm Anatomy Lateral ventricles: normal Cavum septi pellucidi: normal Cerebellum: normal Cisterna magna: normal 4-chamber view: normal RVOT view: normal LVOT view: normal 3-vessel view: normal Heart / Thorax Situs: situs solitus (normal) Diaphragm: normal Stomach: normal Kidneys: normal Bladder: normal sex: male Wants to know sex: yes Performed By: Darline Simmons RDMS, RVT Read By: Gianni Chand D.O. [facility] 11-17-2024 Progress note Formatting of t his note might be different from the original. DM-Pt doing well. Denies vaginal Bleeding, Leaking fluid, or regular Contractions. Pt reports good movement Physical Exam: Gen: female in no apparent distress Abd: soft, Gravid. Non tender to palpation. See flow sheet @ 37.3 weeks Assessment & Plan Limited care in third trimester ([facility]) Orders: URINE OB DIP B/O Supervision of high risk in third trimester ([facility]) Did not complete Glucose screening- pt understands will be monitored after delivery -growth us today Orders: URINE OB DIP B/O Anemia complicating , third trimester ([facility]) Continue PO iron Orders: URINE OB DIP B/O 37 weeks gestation of ([facility]) Weekly visit Kick counts and labor reviewed Orders: URINE OB DIP B/O Teetee Pena MD [facility] 11-17-2024 Miscellaneous Notes Formattin g of this note might be different from the original. DM-Pt doing well. Denies vaginal Bleeding, Leaking fluid, or regular Contractions. Pt reports good movement Physical Exam: Gen: female in no apparent distress Abd: soft, Gravid. Non tender to palpation. See flow sheet @ 37.3 weeks Assessment & Plan Limited care in third trimester ([facility]) Orders: URINE OB DIP B/O Supervision of high risk in third trimester ([facility]) Did not complete Glucose screening- pt understands will be monitored after delivery -growth us today Orders: URINE OB DIP B/O Anemia complicating , third trimester ([facility]) Continue PO iron Orders: URINE OB DIP B/O 37 weeks gestation of ([facility]) Weekly visit Kick counts and labor reviewed Orders: URINE OB DIP B/O Teetee Pena MD documented in this encounter [facility] 11-17-2024 Instructions Mamie Olivarez MA - 11/17/2024 2:31 PM EDT SEQUENTIAL SCREENINGS The [facility] offers sequential screenings for women who [...] It will require an appointment with our electromyographic technician. This is not an ultrasound performed [...] the above symptoms, contact our office at [phone] and ask to speak with a nurse. After hours, you can call doctors registry at [phone] OR call [facility] at [phone] and ask to have the doctor aviation electronics technician paged. If you consider this an emergency, dial 9-1-1 or go to your nearest emergency department. NEED HELP? Are you dealing with a violent or abusive relationship? Are you a victim of rape or sexual assult? Call [facility] ([facility] 24 hour Crisis Hotline: 235.911.6346 or 629-367-4134. MANUAL Your Guide to a Healthy manual is now on-line. Visit [email or web address] to download your free copy documented in this encounter [facility] 11-09-2024 History and physi dagmar note [facility] 11-09-2024 Note HNO ID: [id number] Author: CHUY MOORE MD Service: ? Author Type: Physician Type: Progress Notes Filed: 11/09/2024 18:11 Note Text: SW- Irregular ctx's. No vb, lof. Good FM PE: Gen- NAD, well appearing Abd- Soft, gravid, NT See flowsheet A/p 36 wk gestation - Late care: Completed growth US 32 wks - FHT 140 bpm on doppler with an infrequent skip in heart beat heard. Patient sent to LANDD for monitoring. On LANDD NST reactive and reassuring with no arrhythmia noted. Follow up ultrasound ordered - Bedside US today vertex presentation - GBS collected - RTO 1 wk Chuy Moore DO [facility] 11-09-2024 History of Presen t illness Narrative SW- Irregular ctx's. No vb, lof. Good FM PE: Gen- NAD, well appearing Abd- Soft, gravid, NT See flowsheet A/p 36 wk gestation - Late care: Completed growth US 32 wks - FHT 140 bpm on doppler with an infrequent skip in heart beat heard. Patient sent to L&D for monitoring. On L&D NST reactive and reassuring with no arrhythmia noted. Follow up ultrasound ordered - Bedside US today vertex presentation - GBS collected - RTO 1 wk Chuy Moore DO documented in this encounter [facility] 11-09-2024 Instructions Marah Snyder MA - 11/09/2024 4:34 PM EDT SEQUENTIAL SCREENINGS The [facility] offers sequential screenings for women who [...] It will require an appointment with our electromyographic technician. This is not an ultrasound performed [...] the above symptoms, contact our office at [phone] and ask to speak with a nurse. After hours, you can call doctors registry at [phone] OR call [facility] at [phone] and ask to have the doctor aviation electronics technician paged. If you consider this an emergency, dial 9-1-3 or go to your nearest emergency department. NEED HELP? Are you dealing with a violent or abusive relationship? Are you a victim of rape or sexual assult? Call [facility] ([facility] 24 hour Crisis Hotline: 409.985.7369 or 303-662-0337. MANUAL Your Guide to a Healthy manual is now on-line. Visit [email or web address] to download your free copy documented in this encounter [facility] 11-05-2024 History and physi dagmar note [facility] 10-30-2024 Miscellaneous Notes SW- No pain, vb, lof. Good FM PE: Gen- NAD, well appearing Abd- Soft, gravid, NT See flowsheet A/p 34 wk gestation - Does not have time for 28 wk labs today. Discussed importance of completing. She will schedule lab draw - Discussed upcoming expectations - RTO 1 wk Chuy Moore DO documented in this encounter [facility] 10-30-2024 Progress note Formatting of t his [...] - RTO 1 wk Chuy Moore DO [facility] 10-30-2024 Instructions Marah Snyder MA - 10/30/2024 8:29 AM EDT SEQUENTIAL SCREENINGS The [facility] offers sequential screenings for women who [...] It will require an appointment with our electromyographic technician. This is not an ultrasound performed [...] the above symptoms, contact our office at [phone] and ask to speak with a nurse. After hours, you can call doctors registry at [phone] OR call [facility] at [phone] and ask to have the doctor aviation electronics technician paged. If you consider this an emergency, dial 9--9 or go to your nearest emergency department. NEED HELP? Are you dealing with a violent or abusive relationship? Are you a victim of rape or sexual assult? Call [facility] ([place]) 24 hour Crisis Hotline: 118.531.4588 or 272-005-5315. MANUAL Your Guide to a Healthy manual is now on-line. Visit [email or web address] [email or web address] to download your free copy documented in this encounter [facility] 10-24-2024 Telephone encounter Note Order signed and faxed. Darline Cruz RN [facility] 10-24-2024 Miscellaneous Notes Order signed and faxed. Darline Cruz RN Written order received from [employer] for breast pump. Placed on KJ desk for signature. Chi Galdamez RN documented in this encounter [facility] 10-16-2024 Note Indication Evaluation of growth late [...] 4 oz EFW by: Hadlock (HC-AC-FL) Extended Family Services Specialist 6.2 mm Extremities / Bony Struc FL [...] to know sex: yes Performed By: Darline Simmons RDMS, RVT Read By: Natalie Marin M.D. MATERNAL [...] 20 ASSESSMENT/PLAN: 1. 32 weeks gestation of ([facility]) - ICD9: V22.2, ICD10: Z3A.32 (primary diagnosis) 2. Limited care in third trimester ([facility]) - ICD9: V23.7, ICD10: O09.33 3. Supervision of high risk in third trimester ([facility]) - ICD9: V23.9, ICD10: O09.93 Marium Stevenson MD [facility] 10-16-2024 Miscellaneous Notes S: Jimmy Lema is a 19 year [...] 20 ASSESSMENT/PLAN: 1. 32 weeks gestation of ([facility]) - ICD9: V22.2, ICD10: Z3A.32 (primary diagnosis) 2. Limited care in third trimester ([facility]) - ICD9: V23.7, ICD10: O09.33 3. Supervision of high risk in third trimester ([facility]) - ICD9: V23.9, ICD10: O09.93 Marium Stevenson MD documented in this encounter [facility] 10-16-2024 Instructions Marah Snyder MA - 10/16/2024 1:33 PM EDT SEQUENTIAL SCREENINGS The [facility] offers sequential screenings for women who [...] It will require an appointment with our electromyographic technician. This is not an ultrasound performed [...] the above symptoms, contact our office at [phone] and ask to speak with a nurse. After hours, you can call doctors registry at [phone] OR call [facility] at [phone] and ask to have the doctor aviation electronics technician paged. If you consider this an emergency, dial 9-- or go to your nearest emergency department. NEED HELP? Are you dealing with a violent or abusive relationship? Are you a victim of rape or sexual assult? Call [facility] ([place]) 24 hour Crisis Hotline: 896.171.2140 or 835-186-1319. MANUAL Your Guide to a Healthy manual is now on-line. Visit [email or web address] [email or web address] to download your free copy documented in this encounter [facility] 10-14-2024 History and physi dagmar note [facility] 10-10-2024 Evaluation note Diagnosis Onset Date Resolution 32 weeks gestation of acute October 10, 2024 3:12pm acute October 10 3:12pm Threatened labor, antepartum acute October 10 3:12pm 33 weeks gestation of acute October 14, 2024 12:48am Abdominal pain affecting acute October 14, 2024 12:48am Low back pain acute October 14, 2024 12:48am [facility] Work Phone: 1(181) 209-924308-05-2025 Evaluation note* Diagnosis Onset Date Resolution Status Admit Date 32 weeks gestation of acute October 10, 2024 3:12pm acute October 10 3:12pm Threatened labor, antepartum acute October 10, 2024 3:12pm 33 weeks gestation of acute October 14, 2024 12:48am Abdominal pain affecting acute October 14, 2024 12:48am Low back pain acute October 14, 2024 12:48am 35 weeks gestation of acute November 05 11:10am Abdominal pain affecting acute November 05 11:10am Vaginal discharge acute November 05, 2024 11:10am [facility] Work Phone: 1(725) 993-641908-05-2025 Evaluation note* Diagnosis Onset Date Resolution Status Admit Date 32 weeks gestation of acute October 10, 2024 3:12pm acute October 10 3:12pm Threatened labor, antepartum acute October 10, 2024 3:12pm 33 weeks gestation of acute October 14, 2024 12:48am Abdominal pain affecting acute October 14, 2024 12:48am Low back pain acute October 14, 2024 12:48am 35 weeks gestation of acute November 05 11:10am Abdominal pain affecting acute November 05 11:10am Vaginal discharge acute November 05, 2024 11:10am 36 weeks gestation of acute November 09 5:15pm arrhythmia affecting , antepartum acute November 09, 2024 5:15pm [facility] Work Phone: 1(370) 916-396508-01-2025 Telephone encounter Note* Telephone Encounter - Alf Trevino RN - 10/06/2024 12:18 PM EDT 3rd risk assessment form submitted 10/06/24 Alf Trevino RN [facility]08-01-2025 Miscellaneous Notes* Telephone Encounter - Alf Trevino RN - 10/06/2024 12:18 PM EDT 3rd risk assessment form submitted 10/06/24 Alf Trevino RN [facility] Progress note* Quick Notes - Gina Kulkarni [...] and refusal of GCT Gina Kulkarni APRN.CNM [facility]07-31-2025 Miscellaneous Notes* Quick Notes - Gina Kulkarni [...] GCT Gina Kulkarni APRN.CNM [facility] Instructions* Patient Instructions* Margarita GibbsEMELIA - 10/05/2024 9:50 AM EDT SEQUENTIAL SCREENINGS The [facility] offers sequential screenings for women who [...] testing. It will require an appointment withour electromyographic technician. This is not an ultrasound performed [...] the above symptoms, contact our office at [phone] and ask to speak with anurse. After hours, you can call doctors registry at [phone] OR call [facility] at [phone] ask to have the doctor aviation electronics technician paged. If you consider this an emergency, dial 9--1 or go to your nearest emergency department. NEED HELP? Are you dealing with a violent or abusive relationship? Are you a victim of rape or sexual assult? Call [facility] ([place]) 24 hour Crisis Hotline: 284.692.9499 or 175-841-3831. MANUAL Your Guide to a Healthy manual is now on-line. Visit [email or web address] to download your free copy [facility] Telephone encounter Note * Telephone Encounter - Chi Galdamez RN - 10/02/2024 2:10 PM EDT Written order received from [employer] [facility] for breast pump. Placed on KJ desk for signature. Chi Galdamez RN [facility]07-13-2025 NoteHNO ID: [id number] Author: CRISTA VASQUEZ APRN.SHACKLER Service: ? Author Type: Nurse Practitioner Type: Progress Notes Filed: 09/17/2024 08:54 Note Text: This note was created using [employer]. Subjective Jimmy Lema is a 19 year [...] she will return for reevaluation. Crista Vasquez APRN.[facility]07-13-2025 History of Present illness Narrative* Crista Vasquez APRN.[place] - 09/17/2024 8:50 AM EDT This note was created using [employer]. Subjective Jimmy Lema is a 19 year [...] reevaluation. Crista Vasquez APRN.[place] [facility] Telephone encounter Note * Telephone Encounter - Alf Trevino RN - 08/14/2024 10:39 AM EDT 2nd risk assessment form submitted 08/14/24 Alf Trevino RN [facility]06-09-2025 Miscellaneous Notes* Telephone Encounter - Alf Trevino RN - 08/14/2024 10:39 AM EDT 2nd risk assessment form submitted 08/14/24 Alf Trevino RN [facility] Progress note* Quick Notes - Gina Kulkarni [...] or sooner if needed Gina Kulkarni APRN.CNM [facility]06-06-2025 Miscellaneous Notes* Quick Notes - Gina Kulkarni [...] needed Gina Kulkarni APRN.CNM [facility] Instructions* Patient Instructions* Gina Kulkarni APRN.CNM - 08/11/2024 1:42 PM EDT SEQUENTIAL SCREENINGS The [facility] offers sequential screenings for women who [...] testing. It will require an appointment withour electromyographic technician. This is not an ultrasound performed by a physician in our office during a routine visit. The [employer] Test Purchase 50 gm pouch at [facility] Bring with 10 [...] the above symptoms, contact our office at [phone] and ask to speak with anurse. After hours, you can call doctors registry at [phone] OR call [facility] at [phone] ask to have the doctor aviation electronics technician paged. If you consider this an emergency, dial 6-5-6 or go to your nearest emergency department. NEED HELP? Are you dealing with a violent or abusive relationship? Are you a victim of rape or sexual assult? Call [facility] ([place]) 24 hour Crisis Hotline: 114.130.4806 or 086-012-0099. MANUAL Your Guide to a Healthy manual is now on-line. Visit [email or web address] to download your free copy documented in this encounterCommunity Memorial Hospital05-07-2025 Instructions* Patient Instructions* Kisha Da Silva MA - 07/12/2024 3:54 PM EDT SEQUENTIAL SCREENINGS [facility] offers sequential screenings for women who [...] testing. It will require an appointment withour electromyographic technician. This is not an ultrasound performed [...] the above symptoms, contact our office at [phone] and ask to speak with anurse. After hours, you can call doctors registry at [phone] OR call [facility] at [phone] ask to have the doctor aviation electronics technician paged. If you consider this an emergency, dial 9-1-2 or go to your nearest emergency department. NEED HELP? Are you dealing with a violent or abusive relationship? Are you a victim of rape or sexual assult? Call [facility] ([place]) 24 hour Crisis Hotline: 414.226.7445 or 174-700-5005. MANUAL Your Guide to a Healthy manual is now on-line. Visit [email or web address] to download your free copy documented in this encounterCommunity Memorial Hospital05-07-2025 NoteHNO ID: [id number] Author: PAULINA CHADWICK APRN.SHACKLER Service: ? Author Type: Nurse Practitioner Type: [...] of high risk in second trimester, antepartum ([facility]) - ICD9: V23.9, ICD10: O09.92 (primary diagnosis) - Continue LDA and PNV 2. 19 weeks gestation of ([facility]) - ICD9: V22.2, ICD10: Z3A.19 - Anatomy ultrasound today, report pending 3. Short interval between pregnancies affecting in second trimester, antepartum ([facility]) - ICD9: V23.89, ICD10: O09.892 - 06/2023 4. Rubella non-immune status, antepartum ([facility]) - ICD9: 646.83, V15.83, ICD10: O09.899, Z28.39 - Reviewed - Recommend MMR PTL precautions reviewed. RTO in 4 weeks or sooner as needed. Paulina Chadwick APRN.[facility] History of Present illness Narrative* Paulina Chadwick APRN.ROOSEVELT - 07/12/2024 3:07 PM EDT EH - [...] of high risk in second trimester, antepartum ([facility]) - ICD9: V23.9, ICD10: O09.92 (primary diagnosis) - Continue LDA and PNV 2. 19 weeks gestation of ([facility]) - ICD9: V22.2, ICD10: Z3A.19 - Anatomy ultrasound today, report pending 3. Short interval between pregnancies affecting in second trimester, antepartum ([facility]) - ICD9: V23.89, ICD10: O09.892 - 06/2023 4. Rubella non-immune status, antepartum ([facility]) - ICD9: 646.83, V15.83, ICD10: O09.899, Z28.39 - Reviewed - Recommend MMR PTL precautions reviewed. RTO in 4 weeks or sooner as needed. Paulina Chadwick APRN.CNP documented in this encounterCommunity Memorial Hospital04-23-2025 Progress note* Quick Notes - Gina Kulkarni APRN.CNM - 06/28/2024 9:21 AM EDT Patient is at 17 weeks gestation here for NOB appointment. on 06/17/23. Patient reports she did not know she was until a couple of weeks ago when she started feeling movements. Gina Kulkarni APRN.CNM [facility]04-23-2025 Miscellaneous Notes* Quick Notes - Gina Kulkarni APRN.CNM - 06/28/2024 9:21 AM EDT Patient is at 17 weeks gestation here for NOB appointment. on 06/17/23. Patient reports she did not know she was until a couple of weeks ago when she started feeling movements. Gina Kulkarni APRN.CNM documented in this encounterCommunity Memorial Hospital04-21-2025 NoteHNO ID: [id number] Author: GINA KULKARNI APRN.CNM Service: ? Author Type: Coal Feeder Operator Type: Progress Notes Filed: 06/28/2024 09:25 Note Text: Scientist Immunology offered: Patient declines. INITIAL OB ASSESSMENT HPI: [...] Partner: Name: Julio César Age: 20 Occupation: Sales/[employer] Gender: Male PAST MEDICAL HISTORY Diagnosis Date [...] for: Rash, Itching JOE (more content not included)...[facility]04-21-2025 History of Present illness Narrative* Gina KulkarniLINCOLN.CORYM - 06/26/2024 2:29 PM EDT Scientist Immunology offered: Patient declines. INITIAL OB ASSESSMENT HPI: [...] Partner: Name: Julio César Age: 21 Occupation: Sales/[employer] Gender: Male PAST MEDICAL HISTORY Diagnosis Date [...] discussed with the Patient or Patient's Authorized Refrigeration Engineering Teacher. As applicable, any other physician, advance practice provider, medical student, or other health professional student that will be observing or involved in the sensitive examination for educational or training purposes was discussed with the Patient or Authorized Refrigeration Engineering Teacher. The Patient or Authorized Refrigeration Engineering Teacher has agreed to proceed with the [...] cardiac activity, and crown-rump length 16w5d Darline Charlesarland to room for dating/ gender ASSESSMENT/PLAN: 1. [...] Your guide to a health and the Highway Maintenance Supervisor. 2) Screening: Hemoglobin A1C: ordered Baby Aspirin: [...] prn. Gina Kulkarni APRN.CNM documented in this encounterCommunity Memorial Hospital04-21-2025 Instructions* Patient Instructions* Rosi Pascual MA - 06/26/2024 2:29 PM EDT Please select the following link to access the [facility] Your Guide to a Healthy . [email or web address] documented in this encounterCommunity Memorial Hospital02-07-2025 Telephone encounter Note * Telephone Encounter - Priscila Chaudhry RN - 04/14/2024 1:21 PM EST Patient notified, voiced understanding. Local rehabilitation aide/scheduler states not able to schedule for medical spine center so scheduling number provided to patient (please call [phone] for scheduling ) Priscila Chaudhry RN [facility]02-07-2025 Miscellaneous Notes* Telephone Encounter - Priscila Chaudhry RN - 04/14/2024 1:21 PM EST Patient notified, voiced understanding. Local rehabilitation aide/scheduler states not able to schedule for [facility] so scheduling number provided to patient (please call [phone] for scheduling ) Priscila Chaudhry RN * Telephone Encounter - Diana Velazquez PA-C - 04/14/2024 12:58 PM EST Please let patient know I e-consulted Orthopedics. It was advised that patient obtain additional x-ray imaging (lumbar spine series - has been ordered) and a new consult has been placed for the [facility] per their recommendations. Please assist [...] PA-C Sent: 04/13/2024 6:42 AM EST To: [facility] Peds First Floor Pool Was patient ever able to get scheduled with Ortho? Either through [facility] or a more local provider? Given lack of neurological sequelae and x-ray imaging results, it seems Orthopedics would be most appropriate at this time. Diana Velazquez PA-C Please advise regarding patient's report of needing to see neurology.(awaiting further info from patient) documented in this encounterCommunity Memorial Hospital02-07-2025 Telephone encounter Note * Telephone Encounter - Diana Velazquez PA-C - 04/14/2024 12:58 PM EST Please let patient know I e-consulted Orthopedics. It was advised that patient obtain additional x-ray imaging (lumbar spine series - has been ordered) and a new consult has been placed for the medical spine center per their recommendations. Please assist patient with scheduling. Diana Velazquez PA-C [facility]02-07-2025 NoteHNO ID: [id number] Author: DONALD DE LA TORRE PA-C Service: ? Author Type: Physician Campus Chaplain Type: Progress Notes Filed: 04/14/2024 12:33 Note [...] above. Donald De La Torre PA-C [facility] 14[facility] History of Present illness Narrative* Donald De La Torre PA-C - 04/14/2024 12:29 PM EST E-Consult Response In response to your eConsult request to Orthopedics for Jimmy Crums regarding nodule on lumbarspine History of present [...] PA-C April 14, 2024 documented in this encounterCommunity Memorial Hospital02-07-2025 Telephone encounter Note * Telephone Encounter - Diana Velazquez PA-C - 04/14/2024 10:26 AM EST Patient does not need to see Neurology. E-consult placed to Orthopedics. Diana Velazquez PA-C [facility]02-06-2025 Telephone encounter Note* Telephone Encounter - Chrystal Og LPN - 04/13/2024 1:06 PM EST Is pt needing to go to neurology? [facility]02-06-[facility] Telephone encounter Note* Telephone Encounter - Elsy Evans RN - 04/13/2024 12:23 PM EST per cc'd chart from [place] - Message ----- From: Diana Velazquez PA-C Sent: 04/13/2024 6:42 AM EST To: [facility] Peds First Floor Pool Was patient ever able to get scheduled with Ortho? Either through [facility] or a more local provider? Given lack of neurological sequelae and x-ray imaging results, it seems Orthopedics would be most appropriate at this time. Diana Velazquez PA-C Please advise regarding patient's report of needing to see neurology.(awaiting further info from patient) [facility]01-31-2025 Telephone encounter Note* Telephone Encounter - Chrystal Og LPN - 04/07/2024 8:50 AM EST Patient was notified of advice and/or results. Pt is unable to schedule at this time and will call back when able. [facility]01-31-2025 Miscellaneous Notes* Telephone Encounter - Chrystal Og [...] evaluation. Diana Velazquez PA-C documented in this encounterCommunity Memorial Hospital01-31-2025 Telephone encounter Note * Telephone Encounter - [...] medicine for further evaluation. Diana Velazquez PA-C [facility]01-29-2025 History of Present illness Narrative* Kalli García RT(R) - 04/05/2024 3:30 PM EST Radiology [...] PATIENT PRESENTS WITH AN IMPLANTABLE OR ATTACHED MEDICAL CHEMIST: No RADIOLOGY DEPARTMENT: General X-ray: Exam(s) Completed: Spine X-Ray(s): Sacrum/Coccyx PERIPHERAL IV DATA: Not applicable SIGNED BY: RT Juancarlos(Darren) April 05, 2024 3:44 PM documented in this encounterCommunity Memorial Hospital01-29-2025 NoteHNO ID: [id number] Author: KALLI GARCÍA RT(R) Service: ? Author Type: Nitrate Operator Type: Progress Notes Filed: 04/05/2024 15:56 Note [...] PATIENT PRESENTS WITH AN IMPLANTABLE OR ATTACHED MEDICAL CHEMIST: No RADIOLOGY DEPARTMENT: General X-ray: Exam(s) Completed: Spine X-Ray(s): Sacrum/Coccyx PERIPHERAL IV DATA: Not applicable SIGNED BY: Kalli García, RT(R) April 05, 2024 3:44 [facility]01-29-2025 NoteHNO ID: [id number] Author: DIANA VELAZQUEZ PA-C Service: ? Author Type: Physician Campus Chaplain Type: Progress Notes Filed: 04/13/2024 06:39 Note [...] PATIENT NAME:Jimmy Lema DATE: 04/05/2024 TIME: 3:11 [facility]01-29-2025 History of Present illness Narrative* Diana Velazquez [...] 04/05/2024 TIME: 3:11 PM documented in this encounterCommunity Memorial Hospital01-09-2025 Telephone encounter Note * Telephone Encounter - hCi Galdamez RN - 03/16/2024 10:03 AM EST Pt notified and voiced understanding. Chi Galdamez RN [facility]01-09-2025 Miscellaneous Notes* Telephone Encounter - Chi Galdamez RN - 03/16/2024 10:03 AM EST Pt notified and voiced understanding. Chi Galdamez RN * Telephone Encounter - Siomara Lanza APRN.CNP - 03/16/2024 8:53 AM EST Based on urinalysis it does appear the patient has a urinary tract infection Macrobid into drug [facility] in [place]. Please notify patient. Siomara Lanza APRN.CNP documented in this encounterCommunity Memorial Hospital01-09-2025 Telephone encounter Note * Telephone Encounter - Siomara Lanza APRN.CNP - 03/16/2024 8:53 AM EST Based on urinalysis it does appear the patient has a urinary tract infection Macrobid into drug [facility] in [place]. Please notify patient. Siomara Lanza APRN.CNP [facility]01-07-2025 Telephone encounter Note* Telephone Encounter - Siomara Lanza APRN.CNP - 03/14/2024 11:35 AM EST Orders filed. Please contact pt. Siomara Lanza APRN.CNP [facility]01-07-2025 Miscellaneous Notes* Telephone Encounter - Siomara Lanza APRN.CNP - 03/14/2024 11:35 AM EST Orders filed. Please contact pt. Siomara Lanza APRN.CNP * Telephone Encounter - Marium Patel RN - 03/14/2024 10:10 AM EST Orders pending documented in this encounterCommunity Memorial Hospital01-07-2025 Telephone encounter Note * Telephone Encounter - Marium Patel RN - 03/14/2024 10:10 AM EST Orders pending [facility]-25[facility]2024 Telephone encounter Note* Telephone Encounter - Marium Patel RN - 09/30/2023 12:16 PM EDT Faxed [facility] Miscellaneous Notes* Telephone Encounter - Marium Patel RN - 09/30/2023 12:16 PM EDT Faxed * Telephone Encounter - Marium Patel RN - 09/29/2023 8:18 AM EDT Received breast pump RX from [address] [place] [address]. To KJ to sign. Marium Patel RN documented in this encounterCommunity Memorial Hospital07-24-2024 Telephone encounter Note * Telephone Encounter - Marium Patel RN - 09/29/2023 8:18 AM EDT Received breast pump RX from [address] [place] [address]. To KJ to sign. Marium Patel RN [facility]07-01-2024 Telephone encounter Note* Telephone Encounter - Darline Cruz RN - 09/06/2023 11:52 AM EDT Can you address? [facility]07-01-2024 Miscellaneous Notes* Telephone Encounter - Darline Cruz RN - 09/06/2023 11:52 AM EDT Can you address? documented in this encounterCommunity Memorial Hospital06-27-2024 Telephone encounter Note * Telephone Encounter - Marium Patel RN - 09/02/2023 2:09 PM EDT Faxed [facility] Miscellaneous Notes* Telephone Encounter - Marium Patel RN - 09/02/2023 2:09 PM EDT Faxed * Telephone Encounter - Ny Cruz RN - 09/02/2023 11:14 AM EDT Received faxed order for breast pump from [employer]. Order form on Dr. Alhaji thomas for signature. documented in this encounterCommunity Memorial Hospital06-27-2024 Telephone encounter Note * Telephone Encounter - Ny Cruz RN - 09/02/2023 11:14 AM EDT Received faxed order for breast pump from [employer] [place]. Order form on Dr. Alhaji thomas for signature. [facility]05-23-2024 Instructions* Patient Instructions* Paulina Chadwick APRN.CNP - 07/29/2023 8:58 AM EDT Constipation - Docusate sodium 200 mg or Dara-colace 2 tablets at bedtime. Add Miralax in the morning as needed. documented in this encounterCommunity Memorial Hospital05-23-2024 History of Present illness Narrative* Paulina Chadwick APRN.CNP - 07/29/2023 8:44 AM EDT VISIT Jimmy Lema is a 18 year old year old here for visit. Delivery Summary: on 06/17/23 (elective induction), 8lb 3oz, bilateral labial laceration with repair ROS/ Recovery: Feeding: Breast feeding problems: None Menses since delivery: has not had any more bleeding Menstrual pattern prior to : Regular periods [place] since delivery: Not resumed Depression: denies symptoms [...] external genitalia normal, normal Bartholin's glands, urethra, [place]'s glands, no vulvar lesions, no cervical lesions, [...] Recommend follow up with PCP Paulina Chadwick APRN.SHACKLER documented in this encounterCommunity Memorial Hospital04-12-2024 Hospital Discharge instructions Additional Instructions Date of Discharge: 06/18/23[facility] Work Phone: 1(559) 989-380404-12-2024 Discharge summary Author Marium Stevenson [facility] June 18, 2023 7:27am Note Date/Time June 18, 2023 7:2 7am [facility] Medical Records Department [address] [place] [address] Discharge Summary 06/18/23 0725 MR#: [id number] Acct: [id number] Name: JIMMY LEMA Rep #:[id number] : 2005 18 From: Marium Stevenson MD PCP: Care Physician,No Primary Status :ADM IN Location: [address] Providers Date of Admission: 06/16/23 Date of [...] Stevenson MD; No Primary Care Physician~ Signed [facility] Work Phone: 1(205) 994-232804-12-2024 Progress note Author Marium Stevenson [facility] June 18, 2023 7:22am Note Date/Time June 18, 2023 7:2 2am [facility] Medical Records Department [address] [place] [address] Progress Note - OBGYN 06/18/23 0721 MR#: [id number] Acct: [id number] Name: JIMMY LEMA Rep #:[id number] : 2005 18 From: Marium Stevenson MD PCP: Care Physician,No Primary Status :ADM IN Location: [place] [address]-1 Subjective Subjective Feels good. No complaints. Breast [...] Cosigner Signature (if applicable): CC: ~ Signed [facility] Work Phone: 1(883) 427-759504-11-2024 History of Present illness Narrative* Marium Patel RN - 06/17/2023 2:05 PM EDT Patient delivered via at [facility] on 06/17/23 per Marium Stevenson MD. See OB Outcome note. Marium Patel RN documented in this encounterCommunity Memorial Hospital04-11-2024 Procedure [facility]04-11-2024 Progress note Author Marium Stevenson [facility] June 17, 2023 8:28am Note Date/Time June 17, 2023 8:2 2am [facility] Medical Records Department [address] [place] [address] Progress Note - OBGYN 06/17/23 0817 MR#: [id number] Acct: [id number] Name: JIMMY LEMA Rep #:[id number] : 2005 18 From: Marium Stevenson MD PCP: Care Physician,No Primary Status :ADM IN Location: ZG193-2 Subjective Subjective AROM for clear fluid. Comfortable [...] 75.7 H, Lymph % (Auto) 14.0 L, [place] % (Auto) 8.1, Eos % (Auto) 0.3, [...] (2) Encounter for elective induction of labor: 06/17/2328 <Electronically signed by Marium Stevenson MD> Cosigner Signature (if applicable): CC: ~ Signed [facility] Work Phone: 1(294) 892-168904-11-2024 History and physical note Author Gina Kulkarni [facility] June 16, 2023 11:13pm Note Date/Time June 16, 2023 8:1 4pm [facility] Medical Records Department [address] [place] [address] 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 Maternal Data Information JEFFERY Calculator Estimated Delivery Date Method Current WG Current Estimate 06/11/23 Manual 40w 5d [facility] Medical History (Updated 06/16/23 @ 20:11 by [...] of admission and is collaborating physician 06/16/23 6896 <Electronically signed by Gina Kulkarni CNM> Cosigner Signature (if applicable): CC: ARELIS Kulkarni; No Primary Care Physician~ Signed [facility] Work Phone: 1(963) 970-797404-11-2024 Progress note Author Gina Kulkarni [facility] June 16, 2023 11:11pm Note Date/Time June 16, 2023 11: 11pm [facility] Medical Records Department [address] [place] [address] Progress Note - OBGYN 06/16/23 2309 MR#: [id number] Acct: [id number] Name: JIMMY LEMA Rep #:[id number] : 2005 18 From: Gina Kulkarni CNM PCP: Care Physician,No Primary Status :ADM IN Location: FJ697-8 Subjective Subjective Patient seen at bedside. Denies [...] 75.7 H, Lymph % (Auto) 14.0 L, [place] % (Auto) 8.1, Eos % (Auto) 0.3, [...] Cosigner Signature (if applicable): CC: ~ Signed [facility] Work Phone: 1(690) 105-261704-02-2024 Miscellaneous Notes* Quick Notes - Raisa Macias [...] reviewed. Raisa Macias MD documented in this encounterCommunity Memorial Hospital04-02-2024 Instructions* Patient Instructions* Margarita Gibbs MA - 06/08/2023 11:17 AM EDT SEQUENTIAL SCREENINGS The [facility] offers sequential screenings for women who [...] testing. It will require an appointment withour electromyographic technician. This is not an ultrasound performed [...] the above symptoms, contact our office at [phone] and ask to speak with anurse. After hours, you can call doctors registry at [phone] OR call [facility] at [phone] ask to have the doctor aviation electronics technician paged. If you consider this an emergency, dial 9-1-1 or go to your nearest emergency department. NEED HELP? Are you dealing with a violent or abusive relationship? Are you a victim of rape or sexual assult? Call [facility] 24 hour Crisis Hotline: 990.915.8432 or 421-377-7188. MANUAL Your Guide to a Healthy manual is now on-line. Visit [email or web address] to download your free copy documented in this encounterCommunity Memorial Hospital03-26-2024 Miscellaneous Notes* Quick Notes - Raisa Macias [...] reviewed. Raisa Macias MD documented in this encounterCommunity Memorial Hospital03-26-2024 Instructions* Patient Instructions* Marah Snyder MA - 06/01/2023 11:26 AM EDT SEQUENTIAL SCREENINGS The [facility] offers sequential screenings for women who [...] testing. It will require an appointment withour electromyographic technician. This is not an ultrasound performed [...] the above symptoms, contact our office at [phone] and ask to speak with anurse. After hours, you can call doctors registry at [phone] OR call [facility] at [phone] ask to have the doctor aviation electronics technician paged. If you consider this an emergency, dial 9-1-0 or go to your nearest emergency department. NEED HELP? Are you dealing with a violent or abusive relationship? Are you a victim of rape or sexual assult? Call [facility] ([place]) 24 hour Crisis Hotline: 116.955.6354 or 966-884-8396. MANUAL Your Guide to a Healthy manual is now on-line. 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 message sent. Reason for Outreach Medicaid OB/Peds Care Gaps due: N/A Patient Contacted: Unable or unnecessary to reach patient: [facility] sent Navigation Signature: Marah Oakes MA May 31, 2023 10:10 AM documented in this encounterCommunity Memorial Hospital03-19-2024 Miscellaneous Notes* Quick Notes - Raisa Macias [...] reviewed. Raisa Macias MD documented in this encounterCommunity Memorial Hospital03-19-2024 Instructions* Patient Instructions* Brandon Gilman MA - 05/25/2023 1:24 PM EDT SEQUENTIAL SCREENINGS The [facility] offers sequential screenings for women who [...] testing. It will require an appointment withour electromyographic technician. This is not an ultrasound performed [...] the above symptoms, contact our office at [phone] and ask to speak with anurse. After hours, you can call doctors registry at [phone] OR call [facility] at [phone] ask to have the doctor aviation electronics technician paged. If you consider this an emergency, dial 9-1-3 or go to your nearest emergency department. NEED HELP? Are you dealing with a violent or abusive relationship? Are you a victim of rape or sexual assult? Call [facility] ([facility] 24 hour Crisis Hotline: 781.889.5768 or 357-328-7733. MANUAL Your Guide to a Healthy manual is now on-line. Visit [facility] [email or web address] to download your free copy documented in this encounterCommunity [facility]03[facility] Miscellaneous Notes* Quick Notes - Esme Jordan [...] . Esme Jordan M.D. documented in this encounterCommunity [facility] Hospital03-12-2024 Instructions* Patient Instructions* Mamie Olivarez MA - 05/18/2023 10:01 AM EDT SEQUENTIAL SCREENINGS [facility] offers sequential screenings for women who [...] testing. It will require an appointment withour electromyographic technician. This is not an ultrasound performed [...] the above symptoms, contact our office at [phone] and ask to speak with anurse. After hours, you can call [facility] at [phone] OR call [facility] at [phone] ask to have the doctor aviation electronics technician paged. If you consider this an emergency, dial 9--9 or go to your nearest emergency department. NEED HELP? Are you dealing with a violent or abusive relationship? Are you a victim of rape or sexual assult? Call [facility] ([place]) 24 hour Crisis Hotline: 641.902.1305 or 943-226-2469. MANUAL Your Guide to a Healthy manual is now on-line. Visit [email or web address] to download your free copy documented in this encounterCommunity [facility] Hospital02-27-2024 Miscellaneous Notes* Telephone Encounter - Raisa Macias MD - 05/04/2023 10:36 AM EST Patient had visit today. Raisa Macias MD * Telephone Encounter - Marium Patel, ELIEL - 05/03/2023 1:17 PM EST 34w3d Patient has OB visit with IRWIN on 05/04 documented in this encounterCommunity [facility] Hospital02-27-2024 Miscellaneous Notes* Quick Notes - Raisa Macias [...] reviewed. Raisa Macias MD documented in this encounterCommunity [facility] Hospital02-27-2024 Instructions* Patient Instructions* Marah Snyder MA - 05/04/2023 9:46 AM EST SEQUENTIAL SCREENINGS [facility] offers sequential screenings for women who [...] testing. It will require an appointment withour electromyographic technician. This is not an ultrasound performed [...] the above symptoms, contact our office at [phone] and ask to speak with anurse. After hours, you can call doctors registry at [phone] OR call [facility] at [phone] ask to have the doctor aviation electronics technician paged. If you consider this an emergency, dial 9-1-1 or go to your nearest emergency department. NEED HELP? Are you dealing with a violent or abusive relationship? Are you a victim of rape or sexual assult? Call [facility] ([place]) 24 hour Crisis Hotline: 617.782.7382 or 959-953-0871. MANUAL Your Guide to a Healthy manual is now on-line. Visit [email or web address] to download your free copy documented in this encounterCommunity [facility] Hospital02-13-2024 Miscellaneous Notes* Telephone Encounter - Johnna Perez LPN - 04/20/2023 1:05 PM EST Message viewed per pt. Johnna Perez LPN * Telephone Encounter - Johnna Perez LPN - 04/20/2023 10:47 AM EST Please see pt's [employer] message and advise further. Johnna Perez LPN * Telephone Encounter - Siomara Lanza APRN.R[place]SE[place]ELT - 04/20/2023 10:44 AM EST Needs reviewed by an OB provider. Siomara Lanza APRN.SHACKLER * Telephone Encounter - Johnna Perez LPN - 04/20/2023 10:29 AM EST Please see pt's [employer] message and further advise. Johnna Perez LPN documented in this encounterCommunity [facility] Hospital02-13-2024 Miscellaneous Notes* Quick Notes - Esme Jordan [...] prn Esme Jordan M.D. documented in this encounterCommunity Memorial Hospital02-13-2024 Instructions* Patient Instructions* Margarita Gibbs Ma - 04/20/2023 9:33 AM EST SEQUENTIAL SCREENINGS [facility] offers sequential screenings for women who [...] testing. It will require an appointment withour electromyographic technician. This is not an ultrasound performed [...] the above symptoms, contact our office at [phone] and ask to speak with anurse. After hours, you can call doctors registry at [phone] OR call [facility] at [phone] ask to have the doctor aviation electronics technician paged. If you consider this an emergency, dial 9-1-1 or go to your nearest emergency department. NEED HELP? Are you dealing with a violent or abusive relationship? Are you a victim of rape or sexual assult? Call [facility] ([place]) 24 hour Crisis Hotline: 307.305.7658 or 161-981-0277. MANUAL Your Guide to a Healthy manual is now on-line. Visit [email or web address] to download your free copy documented in this encounterCommunity [facility] Hospital02-05-2024 Miscellaneous Notes* Telephone Encounter - Christal Lane RN - 04/12/2023 9:29 AM EST 31w3d today. Next visit 04/20 with RR. documented in this encounterCommunity [facility] Hospital12-12-2023 Miscellaneous Notes* Quick Notes - Siomara Lanza APRN.CNP - 02/16/2023 2:57 PM EST RM-Pt doing well. Denies vaginal Bleeding, Leaking fluid, or regular Contractions. Pt reports good movement Physical Exam: Gen: no apparent distress Abd: soft, Gravid. Non tender to palpation. See flow sheet RTO 4 weeks, GCT for next visit. Siomara Lanza APRN.ROOSEVELT documented in this encounterCommunity Memorial Hospital12-12-2023 Instructions* Patient Instructions* Brandon Gilman Cma - 02/16/2023 2:30 PM EST SEQUENTIAL SCREENINGS [facility] offers sequential screenings for women who [...] testing. It will require an appointment withour electromyographic technician. This is not an ultrasound performed [...] the above symptoms, contact our office at [phone] and ask to speak with anurse. After hours, you can call doctors registry at [phone] OR call [facility] at [phone] ask to have the doctor aviation electronics technician paged. If you consider this an emergency, dial 5--8 or go to your nearest emergency department. NEED HELP? Are you dealing with a violent or abusive relationship? Are you a victim of rape or sexual assult? Call [facility] ([place]) 24 hour Crisis Hotline: 539.750.7129 or 121-463-6801. MANUAL Your Guide to a Healthy manual is now on-line. Visit [email or web address] to download your free copy documented in this encounterCommunity Memorial Hospital11-21-2023 Miscellaneous Notes* Telephone Encounter - Christal [...] time limits for draw. documented in this encounterCommunity Memorial Hospital11-16-2023 Miscellaneous Notes* Telephone Encounter - Christal [...] survey Raisa Macias MD documented in this encounterCommunity Memorial Hospital11-15-2023 Miscellaneous Notes* Quick Notes - Esme Jordan [...] . Esme Jordan M.D. documented in this encounterCommunity Memorial Hospital11-15-2023 Instructions* Patient Instructions* Margarita Gibbs Ma - 01/20/2023 2:14 PM EST SEQUENTIAL SCREENINGS [facility] offers sequential screenings for women who [...] testing. It will require an appointment withour electromyographic technician. This is not an ultrasound performed [...] the above symptoms, contact our office at [phone] and ask to speak with anurse. After hours, you can call doctors registry at [phone] OR call [facility] at [phone] ask to have the doctor aviation electronics technician paged. If you consider this an emergency, dial 1-1-5 or go to your nearest emergency department. NEED HELP? Are you dealing with a violent or abusive relationship? Are you a victim of rape or sexual assult? Call [facility] ([place]) 24 hour Crisis Hotline: 842.102.8369 or 155-806-9553. MANUAL Your Guide to a Healthy manual is now on-line. Visit [email or web address] to download your free copy documented in this encounterCommunity Memorial Hospital10-17-2023 Miscellaneous Notes* Quick Notes - Raisa Macias [...] ordered Raisa Macias MD documented in this encounterCommunity Memorial Hospital10-17-2023 Instructions* Patient Instructions* Marah Snyder MA - 12/22/2022 2:36 PM EDT SEQUENTIAL SCREENINGS [facility] offers sequential screenings for women who [...] testing. It will require an appointment withour electromyographic technician. This is not an ultrasound performed [...] the above symptoms, contact our office at [phone] and ask to speak with anurse. After hours, you can call doctors registry at [phone] OR call [facility] at [phone] ask to have the doctor aviation electronics technician paged. If you consider this an emergency, dial 9-1-1 or go to your nearest emergency department. NEED HELP? Are you dealing with a violent or abusive relationship? Are you a victim of rape or sexual assult? Call [facility] 24 hour Crisis Hotline: 565.594.4524 or 837-980-1727. MANUAL Your Guide to a Healthy manual is now on-line. Visit [email or web address] to download your free copy documented in this encounterCommunity Memorial Hospital10-03-2023 Miscellaneous Notes* Telephone Encounter - Siomara Lanza APRN.CNP - 12/08/2022 9:27 AM EDT Orders filed. Siomara Lanza APRN.CNP * Telephone Encounter - Marium Patel RN - 12/08/2022 8:54 AM EDT Please file. documented in this encounterCommunity Memorial Hospital09-21-2023 Miscellaneous Notes* Telephone Encounter - Jazmine [...] record. Siomara Lanza APRN.CNP documented in this encounterCommunity Memorial Hospital08-22-2022 History of Present illness Narrative* Siomara [...] OB History No obstetric history on file. [employer] History LMP: 10/21/2021, Having periods Age at Menarche: Age at First : Age at Menopause: [employer] History Comments: Sexual Activity: Never; No partner [...] year or sooner if needed. Siomara Lanza APRN.[place]T I spent a total of 20 minutes on the date of the service which included preparing to see the patient, [id number] patient care, completing clinical documentation, obtaining and/or reviewing separately obtained history, counseling and educating the patient/family/caregiver, and ordering medications, tests, or procedures. documented in this encounterCommunity Memorial Hospital08-19-2022 Miscellaneous Notes* Telephone Encounter - Darline Cruz RN - 10/24/2021 2:18 PM EDT The following approved medications have been transmitted electronically. Requested Prescriptions Signed Prescriptions Disp Refills norgestimate 0.25 mg-ethinyl estradiol 35 mcg (SPRINTEC) 0.25-35 mg-mcg per tablet 28 tablet 0 Sig: Take 1 tablet by mouth once daily. Authorizing Provider: SIOMARA LANZA Pharmacy Information Pharmacy Address [facility] [id number] [place], [place] [id number] Darline Cruz RN * Telephone Encounter - [...] patient. Christal Lane RN documented in this encounterCommunity Memorial Hospital04-26-2022 History of Present illness Narrative* Siomara [...] which included preparing to see the patient, [id number] patient care, completing clinical documentation, obtaining and/or reviewing separately obtained history, counseling and educating the patient/family/caregiver and ordering medications, tests, or procedures. [facility] Diagnosis Encounter for surveillance of contraceptive pills- Primary Surveillance of previously prescribed contraceptive pill documented in this encounter [facility] note* Diagnosis Encounter for surveillance of contraceptive pills- Primary Surveillance of previously prescribed contraceptive pill documented in this encounter [facility] note* Diagnosis GBS bacteriuria documented in this encounter [facility] note* Diagnosis Nuchal translucency of fetus on ultrasound- Primary Abnormal findings on screening documented in this encounter [facility] note* Diagnosis 15 weeks gestation of - Primary state, incidental Encounter for care in first trimester of first documented in this encounter [facility] note* Diagnosis 19 weeks gestation of - Primary state, incidental Encounter for supervision of normal first in second trimester Supervision of normal first documented in this encounter [facility] note* Diagnosis Encounter for anatomic survey- Primary Encounter for care in first trimester of first 19 weeks gestation of state, incidental documented in this encounter [facility] note* Diagnosis Supervision of high risk in second trimester- Primary Unspecified high-risk [facility] Diagnosis Supervision of high risk in second trimester- Primary Unspecified high-risk 23 weeks gestation of state, incidental [facility] Diagnosis Encounter for follow-up ultrasound of anatomy- Primary 23 weeks gestation of state, incidental [facility]* Diagnosis Abnormal glucose in , antepartum- Primary Abnormal maternal glucose tolerance, antepartum documented [facility] this encounter [facility]* Diagnosis Supervision of high risk in third trimester- Primary Unspecified high-risk Abnormal glucose in , antepartum Abnormal maternal glucose tolerance, antepartum 32 weeks gestation of state, incidental [facility] this [facility]* Diagnosis Abnormal glucose tolerance in documented [facility] this encounter [facility]* Diagnosis 34 weeks gestation of - Primary state, incidental Abnormal glucose tolerance in Supervision of high risk in third trimester Unspecified high-risk documented [facility] this encounter [facility]* Diagnosis 36 weeks gestation of - Primary state, incidental Supervision of high risk in third trimester Unspecified high-risk [facility] this encounter [facility]* Diagnosis Supervision of high risk in third trimester- Primary Unspecified high-risk Abnormal glucose tolerance in 37 weeks gestation of state, incidental [facility] this encounter [facility]* Diagnosis 38 weeks gestation of - Primary state, incidental Supervision of high risk in third trimester Unspecified high-risk documented [facility] this encounter [facility]* Diagnosis Supervision of high risk in third trimester- Primary Unspecified high-risk 39 weeks gestation of state, incidental Abnormal glucose tolerance in Anemia complicating , third trimester documented [facility] this encounter [facility]* Diagnosis Onset Date Resolution Status 40 weeks gestation of acute Anemia affecting a cute Encounter for elective induction of labor acute GBS bacteriuria acute High risk teen acu te History of elevated glucose acute (spontaneous vaginal delivery) acute [facility] Work Phone: Evaluation note* Diagnosis care and examination- Primary Routine follow-up Abnormal glucose affecting Constipation, unspecified constipation type Sacral mass Disorders of sacrum documented [facility] this encounter [facility]* Diagnosis UTI symptoms- Primary Other symptoms involving urinary system documented [facility] this encounter [facility]* Diagnosis 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 documented [facility]* Diagnosis 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 documented in this encounter [facility] note* Diagnosis 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 documented [facility] this encounter [facility]* Diagnosis 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 documented in this encounter [facility] note* Diagnosis Nodule of soft tissue- Primary Other disorders of soft tissue documented in this encounter [facility] note* Diagnosis with fetus of unknown gestational age (HCC)- Primary 17 weeks gestation of ([facility]) state, incidental Short interval between pregnancies affecting in second trimester, antepartum ([facility]) Late care ([facility]) Insufficient care Encounter for supervision of high risk in second trimester, antepartum ([facility]) Alcohol consumption during in first trimester ([facility]) documented in this encounter [facility] note* Diagnosis Encounter for anatomic survey ([facility])- Primary Encounter for anatomic survey 19 weeks gestation of ([facility]) state, incidental documented in this encounter [facility] note* Diagnosis Encounter for supervision of high risk in second trimester, antepartum (HCC)- Primary 19 weeks gestation of ([facility]) state, incidental Short interval between pregnancies affecting in second trimester, antepartum ([facility]) Rubella non-immune status, antepartum ([facility]) Other specified complication, antepartum documented in this encounter [facility] note* Diagnosis Screening for diabetes mellitus- Primary 23 weeks gestation of ([facility]) state, incidental Late care ([facility]) Insufficient care Encounter for supervision of high risk in second trimester, antepartum (HCC) Short interval between pregnancies affecting in second trimester, antepartum ([facility]) documented in this encounter [facility] note* Diagnosis Rubella non-immune status, antepartum ([facility])- Primary Other specified complication, antepartum documented [facility] this encounter [facility]* Diagnosis Diarrhea, unspecified type- Primary documented in this encounter [facility]* Diagnosis Supervision of high risk in third trimester (HCC)- Primary Unspecified high-risk Late care (HCC) Insufficient care Screening for diabetes mellitus Limited care in third trimester (HCC) 31 weeks gestation of (HCC) state, incidental documented in this encounter [facility] noteNo assessment information availableWOhioHealth [facility] Work Phone: Evaluation note* Diagnosis Suspected problem with growth not found- Primary Late care (HCC) Insufficient care Limited care in third trimester (HCC) 32 weeks gestation of (HCC) state, incidental Supervision of high risk in third trimester (HCC) Unspecified high-risk documented in this encounter [facility] note* Diagnosis 32 weeks gestation of (HCC)- Primary state, incidental Limited care in third trimester ([facility]) Supervision of high risk in third trimester (HCC) Unspecified high-risk documented in this encounter [facility] note* Diagnosis Limited care in third trimester (HCC)- Primary 34 weeks gestation of ([facility]) state, incidental Supervision of high risk in third trimester (HCC) Unspecified high-risk documented in this encounter [facility] note* Diagnosis Limited care in third trimester (HCC)- Primary 36 weeks gestation of ([facility]) state, incidental Supervision of high risk in third trimester (HCC) Unspecified high-risk Anemia complicating , third trimester (HCC) arrhythmia affecting , antepartum ([facility]) Abnormality in heart rate/rhythm, antepartum condition or complication documented in this encounter [facility] note* Diagnosis Limited care in third trimester (HCC)- Primary Supervision of high risk in third trimester (HCC) Unspecified high-risk Anemia complicating , third trimester (HCC) 37 weeks gestation of ([facility]) state, incidental * Assessment & Plan Note - Teetee Johnston MD - 11/17/2024 3:03 PM EDT Associated Problem(s): Supervision of high risk in third trimester (HCC) Did not complete Glucose screening- pt understands infant will be monitored after delivery -growth us today Orders: URINE OB DIP B/O * Assessment & Plan Note - Teetee Johnston MD - 11/17/2024 3:03 PM EDT Associated Problem(s): Anemia complicating , third trimester (HCC) Continue PO iron Orders: URINE OB DIP B/O documented [facility] this encounter [facility]* Diagnosis 37 weeks gestation of (HCC) state, incidental Limited care in third trimester ([facility]) Supervision of high risk in third trimester ([facility]) Unspecified high-risk Anemia complicating , third trimester ([facility]) arrhythmia affecting , antepartum ([facility]) Abnormality in heart rate/rhythm, antepartum condition or complication Limited care in third trimester ([facility])- Primary Supervision of high risk in third trimester ([facility]) Unspecified high-risk Anemia complicating , third trimester (HCC) 37 weeks gestation of (HCC) state, incidental documented in this encounter [facility] Author Chuy Moore [facility] Note Date/Time October 14, 2024 1:1 4am [facility] Medical Records Department [address] [place] [id number] OB Triage Physician Note 10/14/24 0108 MR#: [id number] Acct: [id number] Name: JIMMY LEMA Rep #:[id number] : 2005 19 From: Chuy Moore DO PCP: Care Physician,No Primary Status :REG CLI Y Location: [id number] HPI - General General Date of Admission: [...] her antibiotic for a UTI so far. [facility] Medical History (Updated 10/14/24 @ 01:11 by [...] DO; No Primary Care Physician ~ Signed [facility] Work Phone: History and physical note Author Radha Manrique [facility] Note Date/Time November 05, 2024 12 :44pm [facility] Medical Records Department [address] [place] [address] OB Triage Physician Note 11/05/24 1241 MR#: [id number] Acct: [id number] Name: JIMMY LEMA Rep #:[id number] : 2005 19 From: Radha RODRIGUEZ PCP: Care Physician,No Primary Status :DEP CLI Y Location: [facility] HPI - General HPI Narrative JIMMY LEMA, is a 19 F who presents at 35 weeks with complaint of contractions PFSH PFSH Medical History (Updated 11/05/24 @ 12:45 by Radha Manrique CNM) Physical exam, pre-employment Anemia Seizures Allergy/AdvReac Type Severity Reaction Status Date / Time No Known Allergies Allergy Verified 11/05/24 11:35 Social History Smoking Status: Never smoker History Elective abortions Hx Para 0 Spontaneous abortions Hx # Term Pregnancies Ectopic pregnancies Hx # Pregnancies Multiple births # of living children ROS Constitutional Constitutional: Reports systems reviewed and no addt'l complaints, except as documented; Denies headache(s) Eyes Eyes: Denies acute decrease in peripheral vision, blurry vision or change in vision ENT HEENT: Reports systems reviewed and no addt'l complaints, except as documented Cardiovascular Cardiovascular: Denies chest pain or dizziness Respiratory/Chest Respiratory/Chest: Denies cough, dyspnea, dyspnea on exertion, shortness of breath at rest or shortness of breath with exertion Gastrointestinal Gastrointestinal: Denies abdominal pain, diarrhea, nausea or vomiting Genitourinary Genitourinary: Denies abdominal discomfort Musculoskeletal Musculoskeletal: Denies limited range of motion Integumentary Integumentary: Reports systems reviewed and no addt'l complaints, except as documented Neurologic Neurologic: Reports systems reviewed and no addt'l complaints, except as documented Psychiatric Psychiatric: Reports systems reviewed and no addt'l complaints, except as documented Endocrine Endocrinology: Reports systems reviewed and no addt'l complaints, except as documented Hematologic/Lymphatic Hematologic/Lymphatic: Reports systems reviewed and no addt'l complaints, exceptas documented Allergic/Immunologic Allergic/Immunologic: Reports systems reviewed and no addt'l complaints, except as documented Physical Exam Const alert and oriented x3 General Appearance: cooperative Orientation / Consciousness: awake, oriented to person, oriented to place and oriented to time Exam Limitations: no limitations HEENT normocephalic Head and Scalp: normal to inspection, normocephalic and atraumatic Face and Sinus: normal facial exam Eyes General Eye: normal appearance of both eyes Neck full ROM Chest Chest: symmetrical chest wall rise GI normal to inspection, nondistended, normoactive bowel sounds and non-tender Back/Spine normal ROM Extremity normal to inspection and full ROM Skin no rashes or lesions noted Neuro oriented x3, CN's II-XII intact bilaterally and moves all extremities Sensorium / Orientation: awake, alert and oriented to person NST FHR Rate Baby A Baseline: 145 Variability:: Moderate Accelerations:: 15 x 15 Decelerations:: None NST Reactive:: Yes Uterine Activity:: Irregular and mild Assessment & Plan (1) Abdominal pain affecting : (2) 35 weeks gestation of : (3) Vaginal discharge: PLAN: Plan 1) ROM plus negative 2) No active labor or contractions 3) No cervical change with exam 4) Reactive NST 5) D/C home, information provided on PTL precautions and when to call. 11/05/24 1249 <Electronically signed by Radha Manrique CNM> Date _ Radha Manrique CNM Cosigner Signature (if applicable): Date CC: ARELIS Manrique; No Primary Care Physician ~ Signed [facility] Work Phone: History and physical note Author Chuy Moore [facility] Note Date/Time November 09, 2024 6:16pm [facility] Medical Records Department [address] [place] [address] OB Triage Physician Note 11/09/241813 MR#: [id number] Acct: [id number] Name: JIMMY LEMA Rep #:[id number] : 2005 19 From: Chuy Moore DO PCP: Care Physician,No Primary Status :DEP CLI Y Location: [facility] HPI - General General Date of Admission: 11/09/24 Date of Service: 11/09/24 Chief Complaint: NST HPI Narrative JIMMY LEMA, is a 19 F who presents from the office for an NST. Infrequent skip in heart rate noted on doppler. Patient has no complaints. [facility] Medical History (Updated 11/09/24 @ 18:[address] Chuy Moore DO) Physical exam, pre-employment Anemia Seizures Allergy/AdvReac Type Severity Reaction Status Date / Time No Known Allergies Allergy Verified 11/05/24 11:35 Social History Smoking Status: Never smoker History Elective abortions Hx Para 0 Spontaneous abortions Hx # Term Pregnancies Ectopic pregnancies Hx # Pregnancies Multiple births # of living children NST FHR Rate Baby A Baseline: 140 Variability:: Moderate Accelerations:: 15 x 15 Decelerations:: None NST Reactive:: Yes FHR Category:: Category I Assessment & Plan (1) 36 weeks gestation of : (2) arrhythmia affecting , antepartum: PLAN: Infrequent and noted on doppler in the office. FHT was mostly 140 bpm in the office. NST reactive and reassuring. Will schedule her for an ultrasound in the office and follow up. 11/09/241816 <Electronically signed by Chuy Moore DO> Date _ Chuy Moore DO Cosigner Signature (if applicable): Date CC: Dr. Chuy Wiswell, DO; No Primary Care Physician ~ Signed [facility] Work Phone: Reason for referral (narrative)* Diagnostic Procedure Only (Routine) - Authorized Specialty Diagnoses / Procedures Referred By Contac t Referred To Contact [facility] Diagnoses 15 weeks gestation of Encounter for care in first trimester of first Procedures OBSTETRIC ULTRASOUND WHI US PREG UTERUS AFTER 1ST TRIMEST 1 GESTATION Raisa Macias MD [address] [place] [address] [facility] [address] [place] [address] Referral ID Status Reason Start Date Expiration Date Visits Requested Visits Authorized [id number] Authorized Auto-Generat ed Referral 3 12/22/2023 1 1 [facility] for referral (narrative)* Diagnostic Procedure Only (Routine) - Authorized Specialty Diagnoses / Procedures Referred By Contac t Referred To Contact [facility] Diagnoses Supervision of high risk in second trimester Procedures OBSTETRIC ULTRASOUND WHI US PREG UTERUS AFTER 1ST TRIMEST GESTATION Raisa Macias MD [address] [place] [address] [facility] [employer] [place] [address] Referral ID Status Reason Start Date Expiration Date Visits Requested Visits Authorized [id number] Authorized Auto-Generat ed Referral 3 01/21/2024 1 1 [facility] for referral (narrative)* Diagnostic Procedure Only (Routine) - Closed Specialty Diagnoses / Procedures Referred By Contac t Referred To Contact [facility] Diagnoses Bony abnormality Procedures XR SACRUM/COCCYX 3V AP/LAT RADEX SACRUM & COCCYX MINIMUM 2 VIEWS Diana Velazquez PA-C [address] [place] [address] [place] [address] Referral ID Status Reason Start Date Expiration Date V isits Requested Visits Authorized [id number] Closed Auto-Generate d Referral 04/05/2024 05/05/2025 1 1 [facility] for referral (narrative)* Diagnostic Procedure Only (Routine) - New Request Specialty Diagnoses / Procedures Referred By Contac t Referred To Contact XR IMAGING Diagnoses Bony abnormality Procedures XR LUMBAR GENERAL 3V AP/LAT/L5-S1 RADEX SPINE LUMBOSACRAL 2/3 VIEWS Diana Velazquez PA-C [address] [phone] [place] [address] Referral ID Status Reason Start Date Expiration Date Visits Requested Visits Authorized [id number] New Request Auto-Generat ed Referral 04/14/2024 05/14/2025 1 1 * Consult, Test, Treat (Routine) - Authorized Specialty Diagnoses / Procedures Referred By Contac t Referred To Contact [facility] [place] Diagnoses Bony abnormality Procedures CONSULT TO [facility] OFFICE/OUTPATIENT NEW HIGH MDM 60 MINUTES Diana Velazquez PA-C [address] [phone] Referral ID Status Reason Start Date Expiration Date Visits Requested Visits Authorized [id number] Authorized PCP Requested Referral 04/14/2024 04/14/2025 1 1 [facility] for referral (narrative)No reason for [facility]: Reason for visit Narrative* Diagnostic Procedure Only (Routine) - Closed Specialty Diagnoses / Procedures Referred By Contac t Referred To Contact XR IMAGING Diagnoses Bony abnormality Procedures XR SACRUM/COCCYX 3V AP/LAT RADEX SACRUM & COCCYX MINIMUM 2 VIEWS Diana Velazquez PA-C [address] [place] [address] [place] [address] Referral ID Status Reason Start Date Expiration Date V isits Requested Visits Authorized [id number] Closed Auto-Generate d Referral 04/05/2024 05/05/2025 1 1 [facility] Health Concerns Problem Noted Date Diagnosed [...] back pain October 14, 2024 12: 48am Chief Complaint Admit Date R/O PRE TERM LABOR October 10, 2024 3:1 2pm ABDOMINAL PAIN October 14, 2024 12: 48am R/O LABOR November 05, 2024 11 :10am Reason for Visit Admit Date 32 weeks gestation of October 102024 3:12pm October 10, 2024 3:1 2pm Threatened labor, antepartum Aug us2024 3:12pm 33 weeks gestation of October 142024 12:48am Abdominal pain affecting Augus t 2024 12:48am Low back pain October 14, 2024 12: 48am 35 weeks gestation of October 082024 11:10am Abdominal pain affecting Augus t 2024 11:10am Vaginal discharge November 05, 2024 11 :10am Chief Complaint Admit Date R/O PRE TERM LABOR October 10, 2024 3:1 2pm ABDOMINAL PAIN October 14, 2024 12: 48am R/O LABOR November 05, 2024 11 :10am NST November 09, 2024 5:15pm Chief Complaint Admit Date R/O PRE TERM LABOR October 10, 2024 3:1 2pm ABDOMINAL PAIN October 14, 2024 12: 48am R/O LABOR November 05, 2024 11 :10am NST November 09, 2024 5:15pm R/O LABOR November 13, 2024 6:00pm Reason for Visit Admit Date 32 weeks gestation of October 102024 3:12pm October 10, 2024 3:1 2pm Threatened labor, antepartum Aug ust 2024 3:12pm 33 weeks gestation of October 142024 12:48am Abdominal pain affecting Augus 2024 12:48am Low back pain October 14, 2024 12: 48am 35 weeks gestation of October 082024 11:10am Abdominal pain affecting Augus t 2024 11:10am Vaginal discharge November 05, 2024 11 :10am 36 weeks gestation of Septembe 2024 5:15pm arrhythmia affecting , an tepartum November 09, 2024 5:15pm Advance Directives No Advanced Directives Records Found Advance Directive Response Recorded Date/ Time Living Will No June 16, 2023 7:40pm Power of Product Distribution Specialist No June 15 7:40pm Reason for Referral Specialty Diagnoses / Procedures Referred By Leeann t Referred To Contact [facility] Diagnoses Bony abnormality Transitional vertebrae Procedures CONSULT TO [facility] OFFICE/OUTPATIENT [facility] 60 MINUTES Diana Velazquez PA-C [address] [place] [place] [address] Referral ID Status Reason Start Date Expiration Date Visits Requested Visits Authorized [id number] Authorized PCP Requested Referral 04/07/2024 04/07/2025 1 [...] or prosecute any alcohol or drug abuse patient.[facility] the event this information is protected by the Federal Confidentiality of Alcohol and Drug Abuse Patient Records regulations: The Federal rules restrict any use of the information to criminally investigate or prosecute any alcohol or drug abuse patient.[facility] the event this information is protected by the Federal Confidentiality of Alcohol and Drug Abuse Patient Records regulations: The Federal rules restrict any use of the information to criminally investigate or prosecute any alcohol or drug abuse patient.[facility]In the event this information is protected by the Federal Confidentiality of Alcohol and Drug Abuse Patient Records regulations: The Federal rules restrict any use of the information to criminally investigate or prosecute any alcohol or drug abuse patient.[facility] HospitalIn the event this information is protected by the Federal Confidentiality of Alcohol and Drug Abuse Patient Records regulations: The Federal rules restrict any use of the information to criminally investigate or prosecute any alcohol or drug abuse patient.[facility] HospitalIn the event this information is protected by the Federal Confidentiality of Alcohol and Drug Abuse Patient Records regulations: The Federal rules restrict any use of the information to criminally investigate or prosecute any alcohol or drug abuse patient.[facility] HospitalIn the event this information is protected by the Federal Confidentiality of Alcohol and Drug Abuse Patient Records regulations: The Federal rules restrict any use of the information to criminally investigate or prosecute any alcohol or drug abuse patient.[facility] HospitalIn the event this information is protected by the Federal Confidentiality of Alcohol and Drug Abuse Patient Records regulations: The Federal rules restrict any use of the information to criminally investigate or prosecute any alcohol or drug abuse patient.[facility]In the event this information is protected by the Federal Confidentiality of Alcohol and Drug Abuse Patient Records regulations: The Federal rules restrict any use of the information to criminally investigate or prosecute any alcohol or drug abuse patient.[facility] HospitalIn the event this information is protected by the Federal Confidentiality of Alcohol and Drug Abuse Patient Records regulations: The Federal rules restrict any use of the information to criminally investigate or prosecute any alcohol or drug abuse patient.[facility] HospitalIn the event this information is protected by the Federal Confidentiality of Alcohol and Drug Abuse Patient Records regulations: The Federal rules restrict any use of the information to criminally investigate or prosecute any alcohol or drug abuse patient.[facility] the event this information is protected by the Federal Confidentiality of Alcohol and Drug Abuse Patient Records regulations: The Federal rules restrict any use of the information to criminally investigate or prosecute any alcohol or drug abuse patient.[facility] HospitalIn the event this information is protected by the Federal Confidentiality of Alcohol and Drug Abuse Patient Records regulations: The Federal rules restrict any use of the information to criminally investigate or prosecute any alcohol or drug abuse patient.[facility] HospitalIn the event this information is protected by the Federal Confidentiality of Alcohol and Drug Abuse Patient Records regulations: The Federal rules restrict any use of the information to criminally investigate or prosecute any alcohol or drug abuse patient.[facility] HospitalIn the event this information is protected by the Federal Confidentiality of Alcohol and Drug Abuse Patient Records regulations: The Federal rules restrict any use of the information to criminally investigate or prosecute any alcohol or drug abuse patient.[facility] HospitalIn the event this information is protected by the Federal Confidentiality of Alcohol and Drug Abuse Patient Records regulations: The Federal rules restrict any use of the information to criminally investigate or prosecute any alcohol or drug abuse patient.[facility] HospitalIn the event this information is protected by the Federal Confidentiality of Alcohol and Drug Abuse Patient Records regulations: The Federal rules restrict any use of the information to criminally investigate or prosecute any alcohol or drug abuse patient.[facility] HospitalIn the event this information is protected by the Federal Confidentiality of Alcohol and Drug Abuse Patient Records regulations: The Federal rules restrict any use of the information to criminally investigate or prosecute any alcohol or drug abuse patient.[facility] HospitalIn the event this information is protected by the Federal Confidentiality of Alcohol and Drug Abuse Patient Records regulations: The Federal rules restrict any use of the information to criminally investigate or prosecute any alcohol or drug abuse patient.[facility] HospitalIn the event this information is protected by the Federal Confidentiality of Alcohol and Drug Abuse Patient Records regulations: The Federal rules restrict any use of the information to criminally investigate or prosecute any alcohol or drug abuse patient.[facility] HospitalIn the event this information is protected by the Federal Confidentiality of Alcohol and Drug Abuse Patient Records regulations: The Federal rules restrict any use of the information to criminally investigate or prosecute any alcohol or drug abuse patient.[facility] HospitalIn the event this information is protected by the Federal Confidentiality of Alcohol and Drug Abuse Patient Records regulations: The Federal rules restrict any use of the information to criminally investigate or prosecute any alcohol or drug abuse patient.[facility] HospitalIn the event this information is protected by the Federal Confidentiality of Alcohol and Drug Abuse Patient Records regulations: The Federal rules restrict any use of the information to criminally investigate or prosecute any alcohol or drug abuse patient.[facility] HospitalIn the event this information is protected by the Federal Confidentiality of Alcohol and Drug Abuse Patient Records regulations: The Federal rules restrict any use of the information to criminally investigate or prosecute any alcohol or drug abuse patient.[facility] HospitalIn the event this information is protected by the Federal Confidentiality of Alcohol and Drug Abuse Patient Records regulations: The Federal rules restrict any use of the information to criminally investigate or prosecute any alcohol or drug abuse patient.[facility] HospitalIn the event this information is protected by the Federal Confidentiality of Alcohol and Drug Abuse Patient Records regulations: The Federal rules restrict any use of the information to criminally investigate or prosecute any alcohol or drug abuse patient.[facility] HospitalIn the event this information is protected by the Federal Confidentiality of Alcohol and Drug Abuse Patient Records regulations: The Federal rules restrict any use of the information to criminally investigate or prosecute any alcohol or drug abuse patient.[facility] HospitalIn the event this information is protected by the Federal Confidentiality of Alcohol and Drug Abuse Patient Records regulations: The Federal rules restrict any use of the information to criminally investigate or prosecute any alcohol or drug abuse patient.[facility] HospitalIn the event this information is protected by the Federal Confidentiality of Alcohol and Drug Abuse Patient Records regulations: The Federal rules restrict any use of the information to criminally investigate or prosecute any alcohol or drug abuse patient.[facility] HospitalIn the event this information is protected by the Federal Confidentiality of Alcohol and Drug Abuse Patient Records regulations: The Federal rules restrict any use of the information to criminally investigate or prosecute any alcohol or drug abuse patient.[facility] HospitalIn the event this information is protected by the Federal Confidentiality of Alcohol and Drug Abuse Patient Records regulations: The Federal rules restrict any use of the information to criminally investigate or prosecute any alcohol or drug abuse patient.[facility] HospitalIn the event this information is protected by the Federal Confidentiality of Alcohol and Drug Abuse Patient Records regulations: The Federal rules restrict any use of the information to criminally investigate or prosecute any alcohol or drug abuse patient.[facility] HospitalIn the event this information is protected by the Federal Confidentiality of Alcohol and Drug Abuse Patient Records regulations: The Federal rules restrict any use of the information to criminally investigate or prosecute any alcohol or drug abuse patient.[facility] HospitalIn the event this information is protected by the Federal Confidentiality of Alcohol and Drug Abuse Patient Records regulations: The Federal rules restrict any use of the information to criminally investigate or prosecute any alcohol or drug abuse patient.[facility] HospitalIn the event this information is protected by the Federal Confidentiality of Alcohol and Drug Abuse Patient Records regulations: The Federal rules restrict any use of the information to criminally investigate or prosecute any alcohol or drug abuse patient.[facility] HospitalIn the event this information is protected by the Federal Confidentiality of Alcohol and Drug Abuse Patient Records regulations: The Federal rules restrict any use of the information to criminally investigate or prosecute any alcohol or drug abuse patient.[facility] HospitalIn the event this information is protected by the Federal Confidentiality of Alcohol and Drug Abuse Patient Records regulations: The Federal rules restrict any use of the information to criminally investigate or prosecute any alcohol or drug abuse patient.[facility] HospitalIn the event this information is protected by the Federal Confidentiality of Alcohol and Drug Abuse Patient Records regulations: The Federal rules restrict any use of the information to criminally investigate or prosecute any alcohol or drug abuse patient.[facility] HospitalIn the event this information is protected by the Federal Confidentiality of Alcohol and Drug Abuse Patient Records regulations: The Federal rules restrict any use of the information to criminally investigate or prosecute any alcohol or drug abuse patient.[facility] HospitalIn the event this information is protected by the Federal Confidentiality of Alcohol and Drug Abuse Patient Records regulations: The Federal rules restrict any use of the information to criminally investigate or prosecute any alcohol or drug abuse patient.[facility] HospitalIn the event this information is protected by the Federal Confidentiality of Alcohol and Drug Abuse Patient Records regulations: The Federal rules restrict any use of the information to criminally investigate or prosecute any alcohol or drug abuse patient.[facility] HospitalIn the event this information is protected by the Federal Confidentiality of Alcohol and Drug Abuse Patient Records regulations: The Federal rules restrict any use of the information to criminally investigate or prosecute any alcohol or drug abuse patient.[facility] HospitalIn the event this information is protected by the Federal Confidentiality of Alcohol and Drug Abuse Patient Records regulations: The Federal rules restrict any use of the information to criminally investigate or prosecute any alcohol or drug abuse patient.[facility] HospitalIn the event this information is protected by the Federal Confidentiality of Alcohol and Drug Abuse Patient Records regulations: The Federal rules restrict any use of the information to criminally investigate or prosecute any alcohol or drug abuse patient.[facility] HospitalIn the event this information is protected by the Federal Confidentiality of Alcohol and Drug Abuse Patient Records regulations: The Federal rules restrict any use of the information to criminally investigate or prosecute any alcohol or drug abuse patient.[facility] HospitalIn the event this information is protected by the Federal Confidentiality of Alcohol and Drug Abuse Patient Records regulations: The Federal rules restrict any use of the information to criminally investigate or prosecute any alcohol or drug abuse patient.[facility] HospitalIn the event this information is protected by the Federal Confidentiality of Alcohol and Drug Abuse Patient Records regulations: The Federal rules restrict any use of the information to criminally investigate or prosecute any alcohol or drug abuse patient.[facility] HospitalIn the event this information is protected by the Federal Confidentiality of Alcohol and Drug Abuse Patient Records regulations: The Federal rules restrict any use of the information to criminally investigate or prosecute any alcohol or drug abuse patient.[facility] HospitalIn the event this information is protected by the Federal Confidentiality of Alcohol and Drug Abuse Patient Records regulations: The Federal rules restrict any use of the information to criminally investigate or prosecute any alcohol or drug abuse patient.[facility] HospitalIn the event this information is protected by the Federal Confidentiality of Alcohol and Drug Abuse Patient Records regulations: The Federal rules restrict any use of the information to criminally investigate or prosecute any alcohol or drug abuse patient.[facility] HospitalIn the event this information is protected by the Federal Confidentiality of Alcohol and Drug Abuse Patient Records regulations: The Federal rules restrict any use of the information to criminally investigate or prosecute any alcohol or drug abuse patient.[facility] HospitalIn the event this information is protected by the Federal Confidentiality of Alcohol and Drug Abuse Patient Records regulations: The Federal rules restrict any use of the information to criminally investigate or prosecute any alcohol or drug abuse patient.[facility] Hospital[facility] the event this information is protected by the Federal Confidentiality of Alcohol and Drug Abuse Patient Records regulations: The Federal rules restrict any use of the information to criminally investigate or prosecute any alcohol or drug abuse patient.[facility] Reason for Visit (unrecogniz ed section and content) Reason Comments Medication Problem OCP causing moodines s, crying, bloating and acne Reason Onset Date Comments Refill Request 10/24/2021 Reason Comments Follow Up Sprintec Reason Comments Results Reason Comments Orders Reason Onset Date Comments Care 12/22/2022 Reason Onset Date Comments Care 01/20/2023 Reason Comments US Specialty Diagnoses / Procedures [facility] Diagnoses 15 weeks gestation of Encounter for care in first trimester of first Procedures OBSTETRIC ULTRASOUND WHI US PREG UTERUS AFTER 1ST TRIMEST GESTATION Raisa Macias MD [address] [place] [address] [id number] [address] Referral ID Status Reason Start Date Expiration Date V isits Requested Visits Authorized [id number] Closed Auto-Generate d Referral 12/22/2022 12/22/2023 1 1 Reason Comments Lab Orders Reason Onset Date Comments Care 02/16/2023 Specialty Diagnoses / Procedures Referred By Leeann t Referred To Contact [facility] Diagnoses Supervision of high risk in second trimester Procedures OBSTETRIC ULTRASOUND WHI US PREG UTERUS AFTER 1ST TRIMEST GESTATION Raisa Macias MD [address] [place] [address] [facility] [address] [place] [address] Referral ID Status Reason Start Date Expiration Date V isits Requested Visits Authorized [id number] Closed Auto-Generate d Referral 01/21/2023 01/21/2024 1 [...] Referred By Leeann lane Referred To Contact [facility] Diagnoses with fetus of unknown gestational age (HCC) Procedures OBSTETRIC ULTRASOUND WHI US PREG UTERUS AFTER 1ST TRIMEST GESTATION Gina Kulkarni APRN.ARELIS [address] [place] [place] [address] Phone: tel: fax: [phone] [place] [address] Referral ID Status Reason Start Date Expiration Date V isits Requested Visits Authorized [id number] Closed Auto-Generate d Referral 06/28/2024 06/28/2025 1 1 Reason Onset Date Comments Care 07/12/2024 Reason Onset Date Comments Care 08/11/2024 Reason Comments PRAF Reason Comments Diarrhea x 1 week Reason Onset Date Comments Care 10/05/2024 Specialty Diagnoses / Procedures Referred By Leeann lane Referred To Contact [facility] Diagnoses Late care (HCC) Limited care in third trimester (HCC) 31 weeks gestation of (HCC) Supervision of high risk in third trimester (HCC) Procedures OBSTETRIC ULTRASOUND WHI US PREG UTERUS AFTER 1ST TRIMEST GESTATION Gina Kulkarni APRN.ARELIS [address] [place] [address] Phone: tel: fax:[phone] [facility] [address] [place] [address] Referral ID Status Reason Start Date Expiration Date V isits Requested Visits Authorized [id number] Closed Auto-Generate d Referral 10/05/2024 10/05/2025 5 1 Reason Onset Date Comments Care 10/16/2024 Reason Comments breast pump Reason Onset Date Comments Care 10/30/2024 Reason Onset Date Comments Care 11/09/2024 Reason Onset Date Comments Care 11/17/2024 Specialty Diagnoses / Procedures Referred By Leeann lane Referred To Contact [facility] Diagnoses 36 weeks gestation of (HCC) Limited care in third trimester (HCC) Supervision of high risk in third trimester (HCC) Anemia complicating , third trimester ([facility]) arrhythmia affecting , antepartum ([facility]) Procedures OBSTETRIC ULTRASOUND WHI US PREG UTERUS AFTER 1ST TRIMEST GESTATION Chuy Moroe MD [address] [place] [address] Phone: tel: fax: [facility] [address] [place] [address] Referral ID Status Reason Start Date Expiration Date V isits Requested Visits Authorized [id number] Closed Auto-Generate d Referral 11/09/2024 11/09/2025 1 1 Care Teams (unrecognized sec tion and content) Gis Developer Relationship Specialty Start Date End Date Diana Velazquez PA-C [address] [place] [address] PCP - General Pediatrics 04/30/21 Gis Developer Relationship Specialty Start Date End Date Diana Velazquez PA-C [address] [place] [address] PCP - General Pediatrics 04/30/21 Gis Developer Relationship Specialty Start Date End Date Diana Velazquez PA-C [address] [place] [address] PCP - General Pediatrics 04/30/21 Gis Developer Relationship Specialty Start Date End Date Diana Velazquez PA-C [address] [place] [address] PCP - General Pediatrics 04/30/21 Gis Developer Relationship Specialty Start Date End Date Diana Velazquez PA-C [address] [place], [place] [id number] [phone] PCP - General Pediatrics 04/30/21 Gis Developer Relationship Specialty Start Date End Date Diana Velazquez PA-C [address] [place] [address] PCP - General Pediatrics 04/30/21 Gis Developer Relationship Specialty Start Date End Date Diana Velazquez PA-C [address] [place] [address] PCP - General Pediatrics 04/30/21 Gis Developer Relationship Specialty Start Date End Date Diana Velazquez PA-C [address] [place] [address] PCP - General Pediatrics 04/30/21 Gis Developer Relationship Specialty Start Date End Date Diana Velazquez PA-C [address] [place] [address] PCP - General Pediatrics 04/30/21 Gis Developer Relationship Specialty Start Date End Date Diana Velazquez PA-C [address] [place] [address] PCP - General Pediatrics 04/30/21 Gis Developer Relationship Specialty Start Date End Date Diana Velazquez PA-C [address] [place] [address] PCP - General Pediatrics 04/30/21 Gis Developer Relationship Specialty Start Date End Date Diana Velazquez PA-C [address] [place] [address] PCP - General Pediatrics 04/30/21 Gis Developer Relationship Specialty Start Date End Date Diana Velazquez PA-C [address] [place] [address] PCP - General Pediatrics 04/30/21 Gis Developer Relationship Specialty Start Date End Date Diana Velazquez PA-C [address] [place] [address] PCP - General Pediatrics 04/30/21 Gis Developer Relationship Specialty Start Date End Date Diana Velazquez PA-C [address] [place] [address] PCP - General Pediatrics 04/30/21 Gis Developer Relationship Specialty Start Date End Date Diana Velazquez PA-C PCP - General Pediatrics 04/30/21 Gis Developer Relationship Specialty Start Date End Date Diana Velazquez PA-C PCP - General Pediatrics 04/30/21 Gis Developer Relationship Specialty Start Date End Date Diana Velazquez PA-C PCP - General Pediatrics 04/30/21 Gis Developer Relationship Specialty Start Date End Date Diana Velazquez PA-C PCP - General Pediatrics 04/30/21 Gis Developer Relationship Specialty Start Date End Date Diana Velazquez PA-C PCP - General Pediatrics 04/30/21 Team Status: Active Member Role Status Dates Dr. Myesha Cooney MD Family Provider Active No Primary Care Physician Primary Care Provider Active Team Status: Inactive Member Role Status Dates No Primary Care Physician Primary Care Provider Active Dr. Marium Stevenson MD Admit Provider, Attending Pro vider Active Gis Developer Relationship Specialty Start Date End Date Diana Velazquez PA-C PCP - General Pediatrics 04/30/21 Gis Developer Relationship Specialty Start Date End Date Diana Velazquez PA-C PCP - General Pediatrics 04/30/21 Gis Developer Relationship Specialty Start Date End Date Diana Velazquez PA-C PCP - General Pediatrics 04/30/21 Gis Developer Relationship Specialty Start Date End Date Diana Velazquez PA-C PCP - General Pediatrics 04/30/21 Gis Developer Relationship Specialty Start Date End Date Diana Velazquez PA-C PCP - General Pediatrics 04/30/21 Gis Developer Relationship Specialty Start Date End Date Diana Velazquez PA-C PCP - General Pediatrics 04/30/21 Gis Developer Relationship Specialty Start Date End Date Diana Velazquez PA-C PCP - General Pediatrics 04/30/21 Gis Developer Relationship Specialty Start Date End Date Diana Velazquez PA-C PCP - General Pediatrics 04/30/21 Gis Developer Relationship Specialty Start Date End Date Diana Velazquez PA-C PCP - General Pediatrics 04/30/21 Gis Developer Relationship Specialty Start Date End Date Diana Velazquez PA-C PCP - General Pediatrics 04/30/21 Gis Developer Relationship Specialty Start Date End Date Diana Velazquez PA-C PCP - General Pediatrics 04/30/21 Gis Developer Relationship Specialty Start Date End Date Diana Velazquez PA-C PCP - General Pediatrics 04/30/21 Gis Developer Relationship Specialty Start Date End Date Diana Velazquez PA-C PCP - General Pediatrics 04/30/21 Gis Developer Relationship Specialty Start Date End Date Diana [...] October 14, 2024 End: October 14, 2024 Team Status: Inactive Member Role/Relationship Status Dates No Primary Care Physician Primary Care Provider Active Start: November 05, 2024 End: November 05, 2024 Radha Manrique , CNM Attending Provider Active St art: November 05, 2024 End: November 05, 2024 Team Status: Inactive Member Role/Relationship Status Dates No Primary Care Physician Primary Care Provider Active Start: November 09, 2024 End: November 09, 2024 Gina Kulkarni CNM Attending Provider Active Start: November 09, 2024 End: November 09, 2024 Gina Kulkarni CNM Referring Provider Active Start: November 09, 2024 End: November 09, 2024 Team Status: Inactive Member Role/Relationship Status Dates No Primary Care Physician Primary Care Provider Active Start: November 09, 2024 End: November 09, 2024 Dr. Chuy Moore DO Attending Provider Active Start: November 09, 2024 End: November 09, 2024 Dr. Chuy Moore DO Referring Provider Active Start: November 09, 2024 End: November 09, 2024 Team Status: Inactive Member Role/Relationship Status Dates No Primary Care Physician Primary Care Provider Active Start: November 13, 2024 End: November 13, 2024 Rahda Manrique CNM Attending Provider Active St art: November 13, 2024 End: November 13, 2024 Goals (unrecognized section and content) Goals may be documented in a n alternate sectionGoals may be documented in an alternate sectionGoals may be documented in an alternate sectionGoals may be documented in an alternate sectionGoals may be documented in an alternate section INFORMATION SOURCE (unrecogn ized section and content) DATE CREATED AUTHOR 11/23/2024 [facility] DATE CREATED AUTHOR AUTHOR'S RICK BILL 11/24/[address] [facility] FOR RECORDS PERTAINING TO PATIENTS WHO ARE [...] BE BASED ON THE PRIMARY CLINICAL RECORDS. [employer] provides no warranty or guarantee of the accuracy or completeness of information in this document.
[2024-11-28] MEDS: Lactated Ringers 1,000 ML 50 ML IV (07:45)
[2024-11-28] MEDS: LACTATED RINGERS 500 ML 999 ML IV ×2 (08:05→15:10)
[2024-11-28 08:18] LABS: Hematocrit 31.1 % (37-47); Hemoglobin 10.2 g/dL (12.0-15.0); Immature Granulocytes Count 0.130 X10^3/uL (0.0-0.0); Mean Corp Hgb Conc 32.8 g/dL (32-36); Mean Corpuscular Volume 87.9 fL (81-99); Mean Platelet Vol. 10.9 fl (6.2-12.0); NRBC Flagged by Analyzer 0 % (0-5); Platelet Count 242 K/mm3 (150-450); RBC Distribution Width CV 14.2 % (11.6-14.6); RBC Distribution Width SD 45.2 fl (35.1-43.9); Red Blood Count 3.54 M/mm3 (4.2-5.4); White Blood Count 8.7 K/mm3 (4.4-11.0)
[2024-11-28] MEDS: Oxytocin 15 Units/NS 250ml 15 UNITS/250 ML IV.SOLN 2 UNITS IV (08:40)
--- NOTE | 2024-11-28 08:45 | PCM.HP.OB ---
HPI - General General Date of Admission: 11/28/24 Date of Service: 11/28/24 HPI Narrative JIMMY LEMA, is a 19 F who presents for induction. Maternal Data Information JEFFERY Calculator Estimated Delivery Date Method Current WG Current Estimate 12/05/24 Manual 39w 0d PFSH [facility] Medical History (Updated 11/28/24 @ 09:11 by Cynthia Byrd) depression Physical exam, pre-employment Anemia Seizures Home Medications ?Medication ?Instructions ?Recorded ?Last Taken ?Type vit no.95-ferrous 1 tab PO DAILY 11/13/24 11/13/24 10:00 History fumarate 28 mg-folic acid 800 mcg tablet () Allergy/AdvReac Type Severity Reaction Status Date / Time No Known Allergies Allergy Verified 11/28/24 07:31 Social History Smoking Status: Never smoker History Elective abortions Hx Para 1 Spontaneous abortions Hx # Term Pregnancies Ectopic pregnancies Hx # Pregnancies Multiple births # of living children NST FHR Rate Baby A Baseline: 130 Variability:: Moderate Accelerations:: 15 x 15 Decelerations:: None Uterine Activity:: Q 3 minutes Vital Signs Vital Signs Vital Signs: 11/28/24 08:01 11/28/24 08:01 11/28/24 08:26 Temperature Temperature Source Temporal Pulse Rate 76 Respiratory Rate Blood Pressure 105/61 BP Systolic 105 BP Diastolic 61 11/28/24 08:26 11/28/24 08:26 Temperature 97.6 F L Temperature Source Pulse Rate Respiratory Rate 16 Blood Pressure BP Systolic BP Diastolic Weight Weight: 138 lb 3.677 oz Body Mass Index (BMI) 24.5 Physical Exam Const alert, oriented x3 and no apparent distress Chest inspection of chest normal GI non-tender, non-distended and no masses Inspection: gravid external exam normal Narrative: cvx - 3/50/-2, AROM clear fluid Labs Labs Labs: Blood Type O POSITIVE Antibody Screen NEGATIVE Hct, (37-47) 31.1 % L Hgb, (12.0-15.0) 10.2 g/dL L Syphilis Total Ab, (Nonreactive) Nonreactive Rhogam given: No Assessment & Plan (1) 39 weeks gestation of : PLAN: Plan Admit to L&D Induction - on pitocin & s/p AROM GBS negative Pain - epidural as desired EFW - less than 4500g & patient with adequate pelvis GDM screening not completed as patient refused
[2024-11-28 09:15] LABS: Syphilis Antibodies Nonreactive (Nonreactive)
[2024-11-28] MEDS: fentaNYL-bupivacaine (epidural) 100 ML BAG EPIDURAL (12:35)
[2024-11-28] MEDS: Lactated Ringers 1,000 ML 200 ML IV (12:51)
--- NOTE | 2024-11-28 16:43 | EX.PCM.OBVAG ---
Maternal Data Information JEFFERY Calculator Estimated Delivery Date Method Current WG Current Estimate 12/05/24 Manual 39w 0d Vaginal Delivery Maternal Presentation Maternal Presentation: Elective Induction Type of Induction: Pitocin and Amniotomy Vaginal Delivery Information Procedure Performed: Spontaneous Vaginal Delivery Surgeon/Practitioner: Kari Mane Date of Procedure: 11/28/24 Pre-Procedure Diagnosis: Maternal request for elective induction Post-Procedure Diagnosis: Same Type of anesthesia: Epidural Estimated Blood Loss: 100ml Findings Description of procedure: Called to room when patient C/C/+2. She was already draped. Patient pushed well to deliver the head. head was gently guided to allow delivery of anterior and posterior shoulders. No excess traction placed on the head. The body delivered. 3VC clamped and cut in delayed fashion. Placenta delivered with gentle traction and good uterine tone obtained. Presentation: HALLEY Amniotic Membrane Rupture Type: Artificial Amniotic Fluid Description: Clear Placental Delivery Description: Expressed Placenta Disposition: [facility] Specimen collected: No Cord Vessel Description: 3 Vessels Cord Entanglement: Around neck x 1, loose Nuchal Cord Compression: With compression Infant A Gender: Male (1 minute): 8 (5 minute): 9 Delayed Cord Clamping: Yes Supervisor Riprap Placing stock mixer: No Post Vaginal Deli Medications given after delivery: IV Pitocin Episiotomy Description: None Laceration: None Complication Complications: No
[2024-11-28] MEDS: Oxytocin 15 Units/NS 250ml 15 UNITS/250 ML IV.SOLN 83 UNITS IV (17:05)
[2024-11-29 00:10] VITALS: BP 110/70; PULSE 84; RESP 16; TEMP 36.1; O2SAT 99
[2024-11-29 04:25] VITALS: BP 119/88; PULSE 79; RESP 16; TEMP 36.4; O2SAT 98
--- NOTE | 2024-11-29 07:35 | NURSING ---
Patient refused MMR vaccination while in the hospital. Education given. Patient verbalized understanding
[2024-11-29 08:00] VITALS: BP 104/81; PULSE 75; RESP 16; TEMP 37.2; O2SAT 99
--- NOTE | 2024-11-29 08:09 | PCM.PROGNOTE ---
Subjective Subjective patient seen at bedside, doing well. Patient reports good pain control. lochia mild. denies PERRY. Objective Data Objective Data Vital Signs: Vital Signs Temp Pulse Resp BP Pulse Ox O2 Del Method 97.5 F L 79 16 119/88 H 98 Room Air 11/29/24 04:25 11/29/24 04:25 11/29/24 04:25 11/29/24 04:25 11/29/24 04:25 11/29/24 04:25 Oxygen Delivery Method Room Air Weight: 62.7 kg Body Mass Index (BMI) 24.5 Intake & Output: Intake and Output for Last 24 Hours 11/27/24 11/28/24 11/29/24 23:59 23:59 23:59 Intake Total 2755.00 / 2755.00 Output Total 900 / 900 Balance 1855.00 / 1855.00 Lab / Micro Data 11/28/24 07:45 Labs: Laboratory Results - last 24 hr 11/28/24 07:45: WBC 8.7, RBC 3.54 L, Hgb 10.2 L, Hct 31.1 L, MCV 87.9, MCH 28.8, MCHC 32.8, RDW Std Deviation 45.2 H, RDW Coeff of Andrés 14.2, Plt Count 242, MPV 10.9, Immature Gran % (Auto) 1.500 H, Neut % (Auto) 72.2 H, Lymph % (Auto) 18.0 L, [place] % (Auto) 7.5, Eos % (Auto) 0.5, Baso % (Auto) 0.3, Absolute Neuts (auto) 6.3, Absolute Lymphs (auto) 1.57, Nucleated RBC % 0, Syphilis Total Ab Nonreactive, Blood Type O POSITIVE, Antibody Screen NEGATIVE Physical Exam Narrative Abd: fundus firm. Const alert and oriented x3 General Appearance: cooperative HEENT normocephalic Neck General: normal visual inspection GI soft to palpation and non-distended GI Narrative: Fundus firm Extremity normal to inspection and no calf tenderness Skin no rashes or lesions noted Neuro oriented x3 and CN's II-XII intact bilaterally Psych mental status grossly normal Assessment & Plan Assessment/Plan (1) Vaginal delivery: PLAN: Plan PPD#1 , Doing well Routine care pain mgmt ambulation dc home per patient request
--- NOTE | 2024-11-29 08:10 | DCINST_ITS ---
Discharge Instructions DC O2, CPAP, BIPAP needs Home O2 Discharge instructions: No Dressing / Incision May resume sexual activity in: 6-8 weeks Dressing / Incision Call your doctor if you observe: Fever of 101 or Higher, Inability to urinate, Using more than 1 pad per hour and Uncontrolled pain Follow Up Care Please Follow Up With: Kari Mane MD When: 1 week post and again at 6 weeks post . [phone]: if you had PREECLAMPSIA or other Blood pressure concerns in labor you should be seen in 48-72 hours in the office. Test Results: Test results from this visit will be discussed in further detail at your follow- up appointment, if applicable. Discharge Plan Admission Admit Date/Time: 11/28/24 07:34 Attending Provider: Kari Mane Primary Care Provider: Care Physician,Sofia Primary Discharge Orders/Prescriptions Prescriptions: No Action PNV no.95-ferrous fumarate-FA [] 28 mg iron- 800 mcg tablet 1 tab PO DAILY Referrals / Follow Up: Care Physician,No Primary [Primary Care Provider, Medical]
[2024-11-29 13:25] VITALS: BP 136/81; PULSE 75; RESP 16; TEMP 36.7; O2SAT 99
[2024-11-29 13:30] VITALS: BP 119/80
--- NOTE | 2024-11-29 13:39 | NURSING ---
1320-fundus firm slight rt. pt states she carried baby more on the rt during the
[2024-11-29 18:11] VITALS: BP 127/88; PULSE 82; RESP 16; TEMP 36.3; O2SAT 98
--- NOTE | 2024-11-30 15:00 | CASEMGMT ---
Social Work Assessment Labor and Delivery Unit Patient Address:[address] [place] [address] [place] [address] Phone number: [phone] Date of Referral: 11/28/24 Time of Referral:? 2010 Referred By: Dr. Mane Date of Intervention: ??11/29/24 Time of Intervention:? 1400 Reason for Referral:? late care Sw completed chart review and acknowledges social work consult. Sw presented to bedside and introduced self to mother of baby (JUDE- Yoly). Sw explained reason for sw involvement and completed psychosocial assessment. History obtained from: medical records, MOB Household composition: JUDE states that she is currently residing with her mom and her 1 year old daughter, Rex. MOB reports that father of baby (FORobson- Julio César) does not reside with her, but she and him are in a relationship and are parenting together. Patient's parent/guardian status:? ?JUDE reports that she and FORobson met at school. They have been together for one year, baby is first baby for FOB and second for MOB. MOB denies domestic violence or intimate partner violence. Medical History: ?JUDE is 19 year old female who is 2, para 1- now 2 following labor and delivery of . MOB received late care with [facility]. JUDE presented to hospital for induction of labor due to size. JUDE delivered baby via vaginal delivery on 11/28/24 at 39 weeks gestation. Baby boy, named Brent Em, was born weighing 8lb 10oz with apgars of 8 and 9 at one and five minutes of life, respectfully. MOB states that she is breast feeding and baby will be followed by Dr. Millard for pediatric care. Educational Status:? MOB states that both parents graduated from high school. No problems with reading, learning or comprehension. Financial Status: MOB states that both parents are gainfully employed. 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 Supplies:?? All necessary baby supplies obtained, including: car seat, safe sleep space clothes, diapers and wipes.l Childcare/Caregiver(s):? JUDE reports that she will be the primary caregiver to baby, and when she is working her mom will be able to assist with childcare. Transportation:?? MOB states that she has her drivers license and reliable means of transportation. MOB states that she initially did not know she was , and that is why her care started late. Programs/Agencies Involved: ??JUDE states that her insurance is through [employer] and WIC. ? Children Services/Legal Issues:???MOB denies any history with children services. No issues or concerns warranting referral to be made at this time. ioral Health Issues: ??Mental Health History:??MOB states that she experienced depression after her daughter was born, but denies other mental health history. MOB denies being prescribed medications to help her manage her mental health symptoms or to any mental health community resources. ? Substance Use History:?MOB denies substance use prior to and during . ? Family History:?MOB denies family history of substance use or significant mental health history. ? Drug Screens: ??No drug screens observe while completing chart review. Family/Social Stressors:?MOB denies any issues, concerns or stressors at this time. Support Systems: MOB states that her mom and paternal grandparents are her biggest supports. Depression/Shaken Baby/Safe Sleeping:? Sw educated MOB on signs and symptoms of baby blues and depression and anxiety. MOB states that after her daughter was born she started to experience depression when she was 6 months . When asked if something had happened during that time that prompted her depression, MOB stated that she was going through a traumatic time in her life, but did not want to elaborate. Sw explained to MOB that she is more at risk to experience symptoms due to her mental health history. MOB expressed understanding. Sw asked who MOB would talk to if she were to experience any symptoms of baby blues or depression or anxiety during this period. MOB states that her mom is her biggest support person and would be able to help her emotionally if necessary. Sw encouraged MOB to also talk to her OBGYN about a low dose medication to also help her during this time if she were to struggle, or to also get connected to a mental health professional. MOB agreed. Sw educated MOB on shaken baby prevention and ABCs of safe sleep, MOB expressed understanding. ASSESSMENT:? MOB and baby admitted following labor and delivery. MOB with mental health history positive for depression and she also had late care. Education and information provided and discussed regarding importance of attending routine well check appointments with his podiatrist assistant to ensure proper growth and development. MOB receptive to this conversation and reports that she will ensure baby is seen regularly. MOB states that her mom is her biggest support person and will be helpful with ensuring she is supported if she were to experience any baby blues or symptoms during this period. MOB was observed laying in bed comfortably and holding while meeting with sw to complete assessment. MOB was welcoming and answered questions asked but not over sharing while talking. MOB has all baby items and natural supports in place. PLAN:? No other services requested or indicated. MOB and baby to be discharged when medically ready. Parents were provided literature regarding: signs and symptoms of baby blues and mood and anxiety disorders, Help Me Grow, shaken baby prevention, ABCs of safe sleep and a list of county resources that are available for them should any needs present themselves. Nancy Hernandez, CHURN OPERATOR, BIOLOGICAL SCIENCE TECHNICIAN
--- NOTE | 2024-12-04 13:46 | NURSING ---
Follow up phone call made, phone number disconnected
== END 2024-11-29 19:30 | disposition home or self-care (01) | DRG 560 ==
PROVIDERS: Advanced Practice Midwife; Admitting Provider Obstetrics & Gynecology; Referring Provider Obstetrics & Gynecology; Visit Provider Obstetrics & Gynecology
DX: O69.81X0 Labor and delivery complicated by cord around neck, without compression, not applicable or unspecified (principal); Z37.0 Single live birth; Z3A.39 39 weeks gestation of pregnancy
CPT/HCPCS: 59025; 59050; 85025; 86780; 86850; 86900; 86901; 99221; G0378